=== PATIENT | male | born 1935 | race American Indian/Alaskan Native ===

== ENCOUNTER 2016-07-07 10:49 | Inpatient (IN) | payer MEDICARE, OTHER ==
[2016-07-07 10:50] VITALS: BMI 25.0
--- NOTE | 2016-07-07 12:08 | C.PDOC ---
History Of Present Illness 81-year-old male, presents to the emergency department with complaints of worsening swelling and pain to B/L lower extremities for the past few weeks. Patient notes ulcer to right lower extremity for the past five months. Patient states he was recently admitted for symptoms, which have not improved since discharge. Patient notes he was given Oxycontin by PMD, which he took twice, but discontinued due to "feeling weird" Patient is requesting non-narcotic pain medication. Denies numbness/weakness, dizziness, fevers, chills, nausea/ vomiting or any other associated symptoms. Patient reports that he is ambulatory with cane. No other complaints at this time. PMD Dr Verdin Surgeon Dr Velasquez. Time Seen by Provider: 07/07/16 11:57 Chief Complaint (Nursing): Lower Extremity Problem/Injury Past Medical History Reviewed: Historical Data, Nursing Documentation, Vital Signs Vital Signs: Last Vital Signs Temp 97.7 F 07/08/16 08:00 Pulse 69 07/08/16 08:00 Resp 18 07/08/16 08:00 BP 179/61 H 07/08/16 10:42 Pulse Ox 97 07/08/16 08:00 - Medical History PMH: Anemia, Colonic Polyps, Fractures, Gall Bladder Disease (GALLSTONES ROBIN) , Peripheral Edema Surgical History: Cholecystectomy, Endoscopy Denies: Pacemaker - [facility] Procedures CORONAR ARTERIOGR-2 CATH (06/26/14) CT SCAN OF ABD AORTA USING OTH CONTRAST (01/26/16) CT SCAN OF BI LOW EXTREM ART USING OTH CONTRAST (01/26/16) ETHMOIDECTOMY (01/27/14) INTRANASAL ANTROTOMY (01/27/14) LEFT HEART CARDIAC CATH (06/26/14) LT HEART ANGIOCARDIOGRAM (06/26/14) SPHENOIDOTOMY (01/27/14) SUBMUC NASAL SEPT RESECT (01/27/14) TURBINECTOMY NEC (01/27/14) Family History: States: Unknown Family Hx - Social History Hx Alcohol Use: No Hx Substance Use: No - Immunization History Hx Tetanus Toxoid Vaccination: No Hx Influenza Vaccination: No Hx Pneumococcal Vaccination: No Review Of Systems Except As Marked, All Systems Reviewed And Found Negative. Constitutional: Negative for: Fever, Chills Gastrointestinal: Negative for: Nausea, Vomiting, Abdominal Pain Musculoskeletal: Positive for: Leg Pain, Foot Pain Skin: Positive for: Other (ulcer over right ankle). Negative for: Rash Neurological: Negative for: Weakness, Numbness, Headache, Dizziness Physical Exam - Physical Exam Appears: Non-toxic, No Acute Distress Skin: Warm, Dry, No Rash Head: Atraumatic, Normacephalic Eye(s): bilateral: Normal Inspection, PERRL, EOMI Nose: Normal Oral Mucosa: Moist Lips: Normal Appearing Neck: Normal ROM Cardiovascular: Rhythm Regular Respiratory: Normal Breath Sounds, No Accessory Muscle Use Extremity: Other (RIGHT LOWER EXT: 3CM ULCER OVER THE MEDIAL MALLEOLUS. 2+ EDEMA B/L LOWER EXT. UNABLE TO PALPATE DP PULSE.) Neurological/Psych: Oriented x3, Normal Speech ED Course And Treatment - Laboratory Results Result Diagrams: 07/07/16 12:54 07/07/16 12:54 O2 Sat by Pulse Oximetry: 98 Medical Decision Making Medical Decision Making: Dr Ron gaona the pt in the ED- will plan on likely intervention during admission disc w Dr Verdin who will admit Disposition - Disposition Disposition: HOSPITALIZED Disposition Time: 13:43 Condition: STABLE - Clinical Impression Clinical Impression: Ischemic ulcer of ankle - Scribe Statement The provider has reviewed the documentation as recorded by the Meli Meadows All medical record entries made by the Meli were at my direction and personally dictated by me. I have reviewed the chart and agree that the record accurately reflects my personal performance of the history, physical exam, medical decision making, and the department course for this patient. I have also personally directed, reviewed, and agree with the discharge instructions and disposition.
[2016-07-07 13:06] LABS: BASO # 0.1 K/uL (0.0-0.2); BASO % 0.7 % (0.0-2.0); EOS # 0.3 K/uL (0.0-0.7); EOS % 3.8 % (0.0-4.0); HEMATOCRIT 34.7 % (35.0-51.0); LYMPH # 1.4 K/uL (1.0-4.3); LYMPH % 16.3 % (20.0-40.0); MEAN CORPUSCULAR HEMOGLOBIN 21.1 pg (27.0-31.0); MEAN CORPUSCULAR HGB CONC 30.5 g/dL (33.0-37.0); MEAN PLATELET VOLUME 9.4 fL (7.2-11.7); MONO # 0.9 K/uL (0.0-0.8); MONO % 9.8 % (0.0-10.0); RED CELL DISTRIBUTION WIDTH 22.7 % (11.5-14.5); WHITE BLOOD COUNT 8.7 K/uL (4.8-10.8)
[2016-07-07 13:08] LABS: CHLORIDE 101 mmol/L (98-107); MEAN CELL VOLUME 69.4 fL (80.0-94.0); POTASSIUM 4.3 mmol/L (3.6-5.2); SODIUM 138 mmol/L (132-148)
[2016-07-07 13:10] LABS: GFR AFRICAN-AMERICAN > 60
[2016-07-07 13:11] LABS: ALKALINE PHOSPHATASE 80 U/L (38-126); ALT/SGPT 30 U/L (21-72); AST/SGOT 25 U/L (17-59); BILIRUBIN,TOTAL 0.7 mg/dL (0.2-1.3); BLOOD UREA NITROGEN 18 mg/dL (9-20); CARBON DIOXIDE 25 mmol/L (22-30); GLUCOSE,RANDOM 86 mg/dL (75-110); TOTAL PROTEIN 8.1 g/dL (6.3-8.3)
[2016-07-07 13:12] LABS: CALCIUM 9.3 mg/dl (8.6-10.4)
--- NOTE | 2016-07-07 13:28 | RAD ---
HISTORY: leg swelling COMPARISON: No prior. FINDINGS: LUNGS: No focal airspace opacity. PLEURA: No significant pleural effusion identified, no pneumothorax apparent. CARDIOVASCULAR: Normal. OSSEOUS STRUCTURES: No significant abnormalities. VISUALIZED UPPER ABDOMEN: Normal. OTHER FINDINGS: Midline sternotomy wires noted. IMPRESSION: No focal airspace opacity.
[2016-07-07] MEDS ORDERED: Piperacillin/Tazobact 3.375 GM in Sodium Chloride 100 ML IVPB STA (13:46)
[2016-07-07] MEDS ORDERED: Piperacillin/Tazobact 3.375 gm 100 ML IVPB ONE (16:09)
[2016-07-07] MEDS: Piperacillin/Tazobact 3.375 GM in Sodium Chloride 100 ML IVPB SCH (19:41)
[2016-07-08] MEDS: Piperacillin/Tazobact 3.375 GM in Sodium Chloride 100 ML IVPB SCH ×4 (00:52→17:46)
--- NOTE | 2016-07-08 09:03 | CP.PCM.CON ---
History of Present Illness - History of Present Illness History of Present Illness: known chronic pvd ,Previous imaging done sfa disease plan is angio sunday dx ulcer with cellulitis Past Patient History - Past Medical History & Family History Past Medical History?: Yes - Past Social History Smoking Status: Former Smoker - CARDIAC Hx Cardiac Disorders: Yes Hx Peripheral Edema: Yes - PULMONARY Hx Respiratory Disorders: No - NEUROLOGICAL Hx Neurological Disorder: No - HEENT Hx HEENT Problems: No - RENAL Hx Chronic Kidney Disease: No - ENDOCRINE/METABOLIC Hx Endocrine Disorders: No - HEMATOLOGICAL/ONCOLOGICAL Hx Blood Disorders: Yes Hx Anemia: Yes - INTEGUMENTARY Hx Dermatological Problems: Yes (Right lower leg ulcer) - MUSCULOSKELETAL/RHEUMATOLOGICAL Hx Musculoskeletal Disorders: Yes Hx Falls: No Hx Fractures: Yes - GASTROINTESTINAL Hx Gastrointestinal Disorders: Yes Hx Gall Bladder Disease: Yes (GALLSTONES ROBIN) - GENITOURINARY/GYNECOLOGICAL Hx Genitourinary Disorders: No - PSYCHIATRIC Hx Psychophysiologic Disorder: No Hx Substance Use: No - SURGICAL HISTORY Hx Surgeries: Yes Hx Cholecystectomy: Yes - ANESTHESIA Hx Anesthesia: Yes Hx Anesthesia Reactions: No Hx Malignant Hyperthermia: No Meds Allergies/Adverse Reactions: Allergies Allergy/AdvReac Type Severity Reaction Status Date / Time No Known Allergies Allergy Verified 07/07/16 10:57 - Medications Medications: Current Medications Aspirin (Aspirin Chewable) 81 mg PO DAILY [facility] Clopidogrel Bisulfate (Plavix) 75 mg PO DAILY [facility] Docusate Sodium (Colace) 100 mg PO BID [facility] Enoxaparin Sodium (Lovenox) 40 mg SC DAILY [facility] Home Med (Esomeprazole Magnesium [Nexium]) 40 mg PO DAILY [facility] Piperacillin Sod/Tazobactam (Sod 3.375 gm/ Sodium Chloride) 100 mls @ 200 mls/ hr IVPB Q6H [facility] Last Admin: 07/08/16 05:53 Dose: 200 mls/hr Metoprolol Tartrate (Lopressor) 25 mg PO BID [facility] Pantoprazole Sodium (Protonix Ec Tab) 40 mg PO DAILY [facility] Results - Vital Signs Recent Vital Signs: Last Vital Signs Temp 97.7 F 07/08/16 08:00 Pulse 69 07/08/16 08:00 Resp 18 07/08/16 08:00 BP 179/61 H 07/08/16 08:00 Pulse Ox 97 07/08/16 08:00 - Labs Result Diagrams: 07/07/16 12:54 07/07/16 12:54
[2016-07-08] MEDS ORDERED: Home Med 1 UNIT (Esomeprazole Magnesium [Nexium] 40 MG) PO SCH (10:00)
[2016-07-08] MEDS ORDERED: Oxycodone/Acetaminophen 5/325 mg Tab PO PRN (10:34)
[2016-07-08] MEDS: Pantoprazole 40 mg EC Tab PO SCH (10:42)
[2016-07-08] MEDS: Enoxaparin 40 mg Syringe SC SCH (10:42)
[2016-07-08 16:44] VITALS: RESP 20
[2016-07-09] MEDS: Piperacillin/Tazobact 3.375 GM in Sodium Chloride 100 ML IVPB SCH ×4 (01:07→17:51)
--- NOTE | 2016-07-09 06:43 | CARD ---
APPROVED REPORT EKG Measurement Heart [id number] <Conclusion> Normal sinus rhythm Possible Left atrial enlargement Left ventricular hypertrophy Cannot rule out Inferior infarct, age undetermined T wave abnormality, consider lateral ischemia Abnormal ECG
[2016-07-09] MEDS: Pantoprazole 40 mg EC Tab PO SCH (09:26)
[2016-07-09] MEDS: Enoxaparin 40 mg Syringe SC SCH (09:26)
[2016-07-09] MEDS ORDERED: Pantoprazole 40 mg EC Tab PO SCH (10:00)
--- NOTE | 2016-07-09 15:35 | CP.PCM.CON ---
History of Present Illness - History of Present Illness History of Present Illness: 81-year-old male, presents to the emergency department with complaints of worsening swelling and pain to B/L lower extremities for the past few weeks. Patient notes ulcer to right lower extremity for the past five months. Patient states he was recently admitted for symptoms, which have not improved since discharge. for possible revasc in am iv antibiotics for ulcer/ cellulitis RLE - Medical History PMH: Anemia, Colonic Polyps, Fractures, Gall Bladder Disease (GALLSTONES ROBIN) , Peripheral Edema Surgical History: Cholecystectomy, Endoscopy Denies: Pacemaker Review of Systems - Constitutional Constitutional: As Per HPI - EENT Eyes: absent: As Per HPI, Blind Spots, Blurred Vision, Change in Vision, Decreased Night Vision, Diplopia, Discharge, Dry Eye, Exophthalmos, Floaters, Irritation, Itchy Eyes, Loss of Peripheral Vision, Pain, Photophobia, Requires Corrective Lenses, Sees Flashes, Spots in Vision, Tunnel Vision, Other Visual Disturbances, Loss of Vision, Other Ears: absent: As Per HPI, Decreased Hearing, Ear Discharge, Ear Pain, Tinnitus, Abnormal Hearing, Disequilibrium, Dizziness, Other Nose/Mouth/Throat: absent: As Per HPI, Epistaxis, Nasal Congestion, Nasal Discharge, Nasal Obstruction, Nasal Trauma, Nose Pain, Post Nasal Drip, Sinus Pain, Sinus Pressure, Bleeding Gums, Change in Voice, Dental Pain, Dry Mouth, Dysphagia, Halitosis, Hoarsness, Lip Swelling, Mouth Lesions, Mouth Pain, Odynophagia, Sore Throat, Throat Swelling, Tongue Swelling, Facial Pain, Neck Pain, Neck Mass, Other - Cardiovascular Cardiovascular: absent: As Per HPI, Acrocyanosis, Chest Pain, Chest Pain at Rest , Chest Pain with Activity, Claudication, Diaphoresis, Dyspnea, Dyspnea on Exertion, Edema, Irregular Heart Rhythm, Pain Radiating to Arm/Neck/Jaw, Leg Edema, Leg Ulcers, Lightheadedness, Orthopnea, Palpitations, Paroxysmal Nocturnal Dyspnea, Pedal Edema, Radiating Pain, Rapid Heart Rate, Slow Heart Rate, Syncope, Other - Respiratory Respiratory: absent: As Per HPI, Cough, Dyspnea, Hemoptysis, Dyspnea on Exertion , Wheezing, Snoring, Stridor, Pain on Inspiration, Chest Congestion, Excessive Mucous Production, Change in Mucous Color, Pain with Coughing, Other - Gastrointestinal Gastrointestinal: absent: As Per HPI, Abdominal Pain, Belching, Bloating, Change in Bowel Habits, Change in Stool Character, Coffee Ground Emesis, Constipation, Cramping, Diarrhea, Dyspepsia, Dysphagia, Early Satiety, Excessive Flatus, Fecal Incontinence, Heartburn, Hematemesis, Hematochezia, Loose Stools, Melena, Nausea, Odynophagia, Temesmus, Vomiting, Other - Genitourinary Genitourinary: absent: As Per HPI, Change in Urinary Stream, Difficulty Urinating, Dysuria, Flank Pain, Hematuria, Pyuria, Nocturia, Urinary Incontinence, Urinary Frequency, Urinary Hesitance, Urinary Urgency, Voiding Freq/Small Amts, Freq UTI, Hx Renal/Bladder Calculi, Hx /Renal Surgery, Bladder Distension, Other - Musculoskeletal Musculoskeletal: As Per HPI - Integumentary Integumentary: As Per HPI, Skin Pain, Wounds - Neurological Neurological: absent: As Per HPI, Abnormal Gait, Abnormal Hearing, Abnormal Movements, Abnormal Speech, Behavioral Changes, Burning Sensations, Confusion, Convulsions, Disequilibrium, Dizziness, Numbness, Focal Weakness, Frequent Falls , Headaches, Lack of Coordination, Loss of Vision, Memory Loss, Paresthesias, Radicular Pain, Restless Legs, Sensory Deficit, Syncope, Tingling, Tremor, Vertigo, Weakness, Other Visual Disturbances, Other - Psychiatric Psychiatric: absent: As Per HPI, Abnormal Sleep Pattern, Anhedonia, Anxiety, Auditory Hallucinations, Behavioral Changes, Change in Appetite, Change in Libido, Confusion, Depression, Difficulty Concentrating, Hallucinations, Homicidal Ideation, Hopelessness, Irritability, Memory Loss, Mood Swings, Panic Attacks, Paranoia, Suicidal Ideation, Visual Hallucinations, Tactile Hallucinations, Other - Endocrine Endocrine: absent: As Per HPI, Change in Body Appearance, Change in Libido, Cold Intolorance, Deepening of Voice, Excessive Sweating, Fatigue, Flushing, Heat Intolorance, Increase in Ring/Shoe/Hat Size, Palpitations, Polydipsia, Polyphagia, Polyuria, Other - Hematologic/Lymphatic Hematologic: absent: As Per HPI, Easy Bleeding, Easy Bruising, Lymphadenopathy, Other Past Patient History - Past Medical History & Family History Past Medical History?: Yes - Past Social History Smoking Status: Former Smoker - CARDIAC Hx Pacemaker: No Hx Peripheral Edema: Yes - PULMONARY Hx Respiratory Disorders: No - NEUROLOGICAL Hx Neurological Disorder: No - HEENT Hx HEENT Problems: No - RENAL Hx Chronic Kidney Disease: No - ENDOCRINE/METABOLIC Hx Endocrine Disorders: No - HEMATOLOGICAL/ONCOLOGICAL Hx Anemia: Yes - INTEGUMENTARY Hx Dermatological Problems: Yes (Right lower leg ulcer) - MUSCULOSKELETAL/RHEUMATOLOGICAL Hx Fractures: Yes - GASTROINTESTINAL Hx Gall Bladder Disease: Yes (GALLSTONES ROBIN) - GENITOURINARY/GYNECOLOGICAL Hx Genitourinary Disorders: No - PSYCHIATRIC Hx Substance Use: No - SURGICAL HISTORY Hx Cholecystectomy: Yes - ANESTHESIA Hx Anesthesia: Yes Hx Anesthesia Reactions: No Hx Malignant Hyperthermia: No Meds Allergies/Adverse Reactions: Allergies Allergy/AdvReac Type Severity Reaction Status Date / Time No Known Allergies Allergy Verified 07/07/16 10:57 - Medications Medications: Current Medications Acetaminophen (Tylenol 325mg Tab) 975 mg PO Q6 PRN PRN Reason: Pain, Mild (1-3) Last Admin: 07/09/16 01:25 Dose: 975 mg Aspirin (Aspirin Chewable) 81 mg PO DAILY [facility]PL[facility] Last Admin: 07/09/16 09:26 Dose: 81 mg Clopidogrel Bisulfate (Plavix) 75 mg PO DAILY [facility] Last Admin: 07/09/16 09:26 Dose: 75 mg Docusate Sodium (Colace) 100 mg PO BID [facility] Last Admin: 07/09/16 09:26 Dose: 100 mg Enoxaparin Sodium (Lovenox) 40 mg SC DAILY [facility]PL[facility] Last Admin: 07/09/16 09:26 Dose: 40 mg Piperacillin Sod/Tazobactam (Sod 3.375 gm/ Sodium Chloride) 100 mls @ 200 mls/ hr IVPB Q6H [facility]PLACED [facility] Last Admin: 07/09/16 12:38 Dose: 200 mls/hr Influenza Virus Vaccine (Afluria) 45 mcg IM .ONCE ONE Stop: 07/10/16 10:01 Metoprolol Tartrate (Lopressor) 25 mg PO BID [facility] Last Admin: 07/09/16 09:26 Dose: 25 mg Oxycodone/Acetaminophen (Percocet 5/325 Mg Tab) 1 tab PO Q4H PRN PRN Reason: Pain, Mild (1-3) Stop: 07/11/16 10:35 Pantoprazole Sodium (Protonix Ec Tab) 40 mg PO DAILY [facility] Last Admin: 07/09/16 09:26 Dose: 40 mg Physical Exam - Constitutional Appears: Non-toxic, No Acute Distress, Younger Than Stated Age, Chronically Ill - Head Exam Head Exam: NORMOCEPHALIC - Eye Exam Eye Exam: PERRL. absent: Scleral icterus - ENT Exam ENT Exam: Mucous Membranes Dry, Normal External Ear Exam, Normal Oropharynx - Neck Exam Neck exam: Negative for: Lymphadenopathy, Thyromegaly - Respiratory Exam Respiratory Exam: Decreased Breath Sounds, Clear to Auscultation Bilateral - Cardiovascular Exam Cardiovascular Exam: REGULAR RHYTHM, +S1, +S2 - GI/Abdominal Exam GI & Abdominal Exam: Diminished Bowel Sounds, Soft. absent: Pulsatile Mass, Rebound, Tenderness - Rectal Exam Rectal Exam: Deferred - Exam Exam: NORMAL INSPECTION - Extremities Exam Extremities exam: Positive for: pedal edema, tenderness. Negative for: calf tenderness, normal inspection, pedal pulses present Additional comments: ulcer rle - Back Exam Back exam: absent: CVA tenderness (L), CVA tenderness (R), paraspinal tenderness - Neurological Exam Neurological exam: Alert, CN II-XII Intact, Oriented x3, Reflexes Normal - Psychiatric Exam Psychiatric exam: Normal Mood - Skin Skin Exam: Dry Results - Vital Signs Recent Vital Signs: Last Vital Signs Temp 97.5 F L 07/09/16 08:00 Pulse 71 07/09/16 12:16 Resp 20 07/09/16 08:00 BP 142/72 07/09/16 09:26 Pulse Ox 98 07/09/16 08:00 - Labs Result Diagrams: 07/07/16 12:54 07/07/16 12:54 Assessment & Plan (1) Ischemic ulcer of ankle Status: Acute (2) CAD (coronary artery disease) Status: Acute (3) Cellulitis Status: Acute (4) HTN (hypertension) Status: Acute (5) Heart valve replaced Status: Acute (6) History of DVT (deep vein thrombosis) Status: Acute (7) Prophylactic measure Status: Acute (8) Swollen leg Status: Acute - Assessment and Plan (Free Text) Assessment: cont iv rx as ordered
[2016-07-10] MEDS: Piperacillin/Tazobact 3.375 GM in Sodium Chloride 100 ML IVPB SCH ×4 (00:40→18:12)
[2016-07-10 07:36] LABS: CHLORIDE 101 mmol/L (98-107)
[2016-07-10 07:37] LABS: EOS # 0.5 K/uL (0.0-0.7); LYMPH # 1.5 K/uL (1.0-4.3); MONO # 0.7 K/uL (0.0-0.8); NRBC % 0.1 % (0.0-2.0); POTASSIUM 4.4 mmol/L (3.6-5.2); SODIUM 138 mmol/L (132-148)
[2016-07-10 07:39] LABS: AST/SGOT 21 U/L (17-59); BILIRUBIN,TOTAL 0.3 mg/dL (0.2-1.3); BLOOD UREA NITROGEN 14 mg/dL (9-20); CARBON DIOXIDE 27 mmol/L (22-30); GFR AFRICAN-AMERICAN > 60; TOTAL PROTEIN 6.8 g/dL (6.3-8.3)
[2016-07-10 07:40] LABS: ALKALINE PHOSPHATASE 61 U/L (38-126); ALT/SGPT 14 U/L (21-72); CALCIUM 8.9 mg/dl (8.6-10.4); GLUCOSE,RANDOM 81 mg/dL (75-110)
[2016-07-10 07:42] LABS: INR 1.2
[2016-07-10 07:51] LABS: BASO # 0.1 K/uL (0.0-0.2); BASO % 0.8 % (0.0-2.0); EOS % 6.7 % (0.0-4.0); HEMATOCRIT 33.7 % (35.0-51.0); MEAN CELL VOLUME 69.5 fL (80.0-94.0); MEAN CORPUSCULAR HEMOGLOBIN 21.6 pg (27.0-31.0); MEAN PLATELET VOLUME 9.4 fL (7.2-11.7); MONO % 9.2 % (0.0-10.0); RED CELL DISTRIBUTION WIDTH 22.6 % (11.5-14.5); WHITE BLOOD COUNT 7.1 K/uL (4.8-10.8)
--- NOTE | 2016-07-10 08:40 | CP.PCM.PN ---
Subjective - Date & Time of Evaluation Date of Evaluation: 07/10/16 Time of Evaluation: 07:30 - Subjective Subjective: PGY2 Medicine Note - Dr. Verdin's Service: Patient seen and evaluated at bedside this AM. Patient reports left first toe pain and b/l foot pain. Patient says he has circulation problems in both legs. Patient denies fever, chills, chest pain, SOB, abdominal pain, nausea, vomiting, diarrhea, constipation, dysuria. Objective - Vital Signs/Intake and Output Vital Signs (last 24 hours): Temp Pulse Resp BP Pulse Ox 98 F 76 20 142/76 97 07/10/16 00:18 07/10/16 00:18 07/10/16 00:18 07/10/16 00:18 07/10/16 00:18 Intake and Output: 07/10/16 07/10/16 06:59 18:59 Intake Total 200 Output Total 700 Balance -500 - Medications Medications: Current Medications Acetaminophen (Tylenol 325mg Tab) 975 mg PO Q6 PRN PRN Reason: Pain, Mild (1-3) Last Admin: 07/09/16 01:25 Dose: 975 mg Aspirin (Aspirin Chewable) 81 mg PO DAILY [facility] Last Admin: 07/09/16 09:26 Dose: 81 mg Clopidogrel Bisulfate (Plavix) 75 mg PO DAILY [facility] Last Admin: 07/09/16 09:26 Dose: 75 mg Docusate Sodium (Colace) 100 mg PO BID [facility] Last Admin: 07/09/16 17:40 Dose: 100 mg Enoxaparin Sodium (Lovenox) 40 mg SC DAILY [facility] Last Admin: 07/09/16 09:26 Dose: 40 mg Piperacillin Sod/Tazobactam (Sod 3.375 gm/ Sodium Chloride) 100 mls @ 200 mls/ hr IVPB Q6H [facility] Last Admin: 07/10/16 06:13 Dose: 200 mls/hr Influenza Virus Vaccine (Afluria) 45 mcg IM .ONCE ONE Stop: 07/10/16 10:01 Metoprolol Tartrate (Lopressor) 25 mg PO BID [facility] Last Admin: 07/09/16 21:39 Dose: 25 mg Oxycodone/Acetaminophen (Percocet 5/325 Mg Tab) 1 tab PO Q4H PRN PRN Reason: Pain, Mild (1-3) Stop: 07/11/16 10:35 Pantoprazole Sodium (Protonix Ec Tab) 40 mg PO DAILY [facility] Last Admin: 07/09/16 09:26 Dose: 40 mg - Labs Labs: 07/10/16 07:14 07/10/16 07:14 PT 13.6 SECONDS (9.7-12.2) H 07/10/16 07:14 INR 1.2 07/10/16 07:14 APTT 32 SECONDS (21-34) 07/10/16 07:14 - Constitutional Appears: Non-toxic, No Acute Distress - Head Exam Head Exam: NORMAL INSPECTION - Eye Exam Eye Exam: EOMI - ENT Exam ENT Exam: Mucous Membranes Moist - Respiratory Exam Respiratory Exam: Clear to Ausculation Bilateral, NORMAL BREATHING PATTERN. absent: Rales, Rhonchi, Wheezes - Cardiovascular Exam Cardiovascular Exam: REGULAR RHYTHM, +S1, +S2, Murmur (4/6 systolic murmur). absent: Gallop, Rubs - GI/Abdominal Exam GI & Abdominal Exam: Soft, Normal Bowel Sounds. absent: Firm, Guarding, Tenderness - Extremities Exam Extremities Exam: absent: Normal Capillary Refill, Pedal Edema Additional comments: swollen left big toe, wrapped left ankle, yellowing of skin on left foot - Neurological Exam Neurological Exam: Alert, Awake, Oriented x3 - Psychiatric Exam Psychiatric exam: Normal Affect, Normal Mood - Skin Skin Exam: Dry Assessment and Plan - Assessment and Plan (Free Text) Assessment: (1) Cellulitis Assessment & Plan: Improving Continue Zosyn 3.375gm IVPB Q6H ID consult - Dr. Allison - help appreciated Afebrile, no leukocytosis Discharge planning to [facility] as per Dr. Verdin once bed becomes available. (2) PVD Assessment & Plan: Patient with history of DVTs Vascular Surgery - Dr. Velasquez - help appreciated Patient NPO for angiogram today F/U arterial doppler results Status: Acute (3) Heart valve replaced Assessment & Plan: INR 1.2 this AM Continue Plavix and ASA Patient not on coumadin at home. Status: Acute (4) CAD (coronary artery disease) Assessment & Plan: Patient on ASA and Plavix at home, continue meds. Status: Acute (5) HTN (hypertension) Assessment & Plan: BP controlled Continue Lopressor 25 mg PO BID Status: Acute (6) Prophylactic measure Assessment & Plan: Pepcid 20 mg PO BID All management as per Dr. Verdin.
[2016-07-10 08:42] LABS: URINE BILIRUBIN NEGATIVE (NEGATIVE); URINE BLOOD NEGATIVE (NEGATIVE); URINE COLOR Yellow (YELLOW); URINE GLUCOSE (UA) NORMAL (Normal); URINE KETONE NEGATIVE (NEGATIVE); URINE LEUKOCYTE ESTERASE NEG Leu/uL (Negative); URINE PROTEIN NEGATIVE (NEGATIVE); URINE UROBILINOGEN NORMAL mg/dL (0.2-1.0); WBC URINE < 1 /hpf (0-5)
--- NOTE | 2016-07-10 09:11 | HP ---
The patient is an 81-year-old male admitted to the hospital with chief complaint of weakness, fatigue , tiredness, pain in the foot. The patient came to the ER, has ischemic ulcer. The patient was advi sed admission to the hospital. The patient has history of peripheral vascular disease, hypertension. PHYSICAL EXAMINATION: GENERAL: The patient is awake, alert, oriented. VITAL SIGNS: Temperature 98, pulse 90. HEENT: Within normal limits. NECK: Supple. CHEST: Symmetrical. HEART: Regular. ABDOMEN: Soft. EXTREMITIES: ulcer present on the foot. The patient suffers from ischemic foot ulcer, peripheral vascular disease. At this point, patient wi ll get IV antibiotic, vascular surgery consult, ID consult. Brandy Bull MD cc: [id number] TT: 07/09/2016 07:43:06 en
[2016-07-10] MEDS ORDERED: Influenza Virus Vaccine 45 mcg/0.5 ml Syr IM ONE (10:00)
[2016-07-10] MEDS: Enoxaparin 40 mg Syringe SC SCH (10:28)
[2016-07-10] MEDS: Pantoprazole 40 mg EC Tab PO SCH (10:37)
--- NOTE | 2016-07-10 16:15 | VASCLAB ---
PROCEDURE: HISTORY: pain, ulcers, poor pulses COMPARISON: None available. TECHNIQUE: Grayscale and duplex Doppler evaluation of the bilateral common femoral, femoral, profunda femoral, popliteal, posterior tibial, anterior tibial and dorsalis pedis arteries was performed. Report prepared by Dennis Sarmiento, BS, RVT FINDINGS: RIGHT LOWER EXTREMITY: * Common Femoral Artery: Peak Systolic Velocity - 116: Doppler Waveform: Biphasic: Plaque description - Homogeneous * Profunda Femoral Artery: Peak Systolic Velocity - 167: Doppler Waveform: Biphasic.: Plaque description - Heterogeneous * Femoral Artery o Proximal Segment: Peak Systolic Velocity - 84: Doppler Waveform: Monophasic: Plaque description - Heterogeneous o Middle Segment: Peak Systolic Velocity - 550: Doppler Waveform: Monophasic: Plaque description - Heterogeneous o Distal Segment: Peak Systolic Velocity - 231: Doppler Waveform: Monophasic: Plaque description - Heterogeneous * Popliteal Artery o Proximal Segment: Peak Systolic Velocity - 148: Doppler Waveform: Monophasic: Plaque description - Heterogeneous o Middle Segment: Peak Systolic Velocity - 68: Doppler Waveform: Monophasic: Plaque description - Heterogeneous o Distal Segment: Peak Systolic Velocity - 89: Doppler Waveform: Monophasic: Plaque description - Heterogeneous * Posterior Tibial Artery: Peak Systolic Velocity - 57: Doppler Waveform: Monophasic: Plaque description - Heterogeneous * Anterior Tibial Artery: Peak Systolic Velocity - 0: Doppler Waveform: Absent: Plaque description - Heterogeneous * Dorsalis Pedis Artery: Peak Systolic Velocity - 0: Doppler Waveform: Absent: Plaque description - Heterogeneous LEFT LOWER EXTREMITY: * Common Femoral Artery: Peak Systolic Velocity - 162: Doppler Waveform: Biphasic: Plaque description - Heterogeneous * Profunda Femoral Artery: Peak Systolic Velocity - 180: Doppler Waveform: Biphasic: Plaque description - Heterogeneous * Femoral Artery o Proximal Segment: Peak Systolic Velocity - 103: Doppler Waveform: Biphasic: Plaque description - Heterogeneous o Middle Segment: Peak Systolic Velocity - 111: Doppler Waveform: Monophasic: Plaque description - Heterogeneous o Distal Segment: Peak Systolic Velocity - 714: Doppler Waveform: Monophasic: Plaque description - Heterogeneous * Popliteal Artery o Proximal Segment: Peak Systolic Velocity - 49: Doppler Waveform: Monophasic: Plaque description - Heterogeneous o Middle Segment: Peak Systolic Velocity - 41: Doppler Waveform: Monophasic: Plaque description - Heterogeneous o Distal Segment: Peak Systolic Velocity - 61: Doppler Waveform: Monophasic: Plaque description - Heterogeneous * Posterior Tibial Artery: Peak Systolic Velocity - 49: Doppler Waveform: Monophasic: Plaque description - Heterogeneous * Anterior Tibial Artery: Peak Systolic Velocity - 0: Doppler Waveform: Absent: Plaque description - Heterogeneous * Dorsalis Pedis Artery: Peak Systolic Velocity - 0: Doppler Waveform: Absent: Plaque description - Heterogeneous OTHER FINDINGS: Dr. Castaneda notified about the findings. IMPRESSION: RIGHT: Possible occlusion of the right mid to distal anterior tibial and dorsalis pedis arteries. Greater than 75% stenosis of the right mid superficial femoral artery. 50-75% stenosis of the right distal superficial femoral and proximal profunda femoral arteries. LEFT: Possible occlusion of the left mid to distal anterior tibial and dorsalis pedis arteries. Greater than 75% stenosis of the left distal superficial femoral artery. 30-49% stenosis of the left common femoral and profunda femoral arteries.
--- NOTE | 2016-07-10 16:18 | VASCLAB ---
PROCEDURE: Lower Extremity Venous Duplex Exam. HISTORY: swelling PRIORS: None. TECHNIQUE: Bilateral common femoral, femoral, popliteal and posterior tibial, peroneal and great saphenous veins were evaluated. Flow was assessed with color Doppler, compressibility, assessment of phasic flow and augmentation response. Report prepared by VANNESA David, RVT FINDINGS: RIGHT: 1. Common Femoral Vein: 1.1. Compressibility - Fully compressible: Thrombus - None : Flow - Phasic: Augmentation -Normal: Reflux - None. 2. Femoral Vein: 2.1. Compressibility - Fully compressible: Thrombus - None : Flow - Phasic: Augmentation -Normal: Reflux - None. 3. Popliteal Vein: 3.1. Compressibility - Fully compressible: Thrombus - None : Flow - Phasic: Augmentation -Normal: Reflux - Severe. 4. Posterior Tibial Vein: 4.1. Compressibility - Fully compressible: Thrombus - None: Flow - Phasic: Augmentation -Normal: Reflux - None. 5. Peroneal Vein: 5.1. Compressibility - Fully compressible: Thrombus - None: Flow - Phasic: Augmentation -Normal: Reflux - None. 6. Great Saphenous Vein: 6.1. Compressibility - Fully compressible: Thrombus - None: Flow - Phasic: Augmentation - Normal: Reflux - None. LEFT: 1. Common Femoral Vein: 1.1. Compressibility - Fully compressible: Thrombus - None: Flow - Phasic: Augmentation -Normal: Reflux - None. 2. Femoral Vein: 2.1. Compressibility - Fully compressible: Thrombus - None: Flow - Phasic: Augmentation -Normal: Reflux - None. 3. Popliteal Vein: 3.1. Compressibility - Fully compressible: Thrombus - None : Flow - Phasic: Augmentation -Normal: Reflux - Severe. 4. Posterior Tibial Vein: 4.1. Compressibility - Fully compressible: Thrombus - None: Flow - Phasic: Augmentation -Normal: Reflux - None. 5. Peroneal Vein: 5.1. Compressibility - Fully compressible: Thrombus - None: Flow - Phasic: Augmentation -Normal: Reflux - None. 6. Great Saphenous Vein: 6.1. Compressibility - Fully compressible: Thrombus - None: Flow - Phasic: Augmentation - Normal: Reflux - None. 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 Left: Severe valvular incompetence of the left popliteal vein. Non vascularlized mass noted behind left knee. Followup to resolution recommended. IMPRESSION: Right: No evidence of deep or superficial vein thrombosis of the right lower extremity. Left: No evidence of deep or superficial vein thrombosis of the left lower extremity.
[2016-07-10] MEDS ORDERED: POLYETHYLENE GLYCOL 3350 17 GM/Dose PACKET PO ONE (21:40)
--- NOTE | 2016-07-10 23:05 | CP.PCM.CON ---
History of Present Illness - History of Present Illness History of Present Illness: 81 male with Hx of CABG and AVR as per patient, PAD and foot ulcer admitted for ulcer also sx of dyspnea Check ECHO Dr. Velasquez scheduled patient for [employer] for PAD Past Patient History - Past Medical History & Family History Past Medical History?: Yes - Past Social History Smoking Status: Former Smoker - CARDIAC Hx Pacemaker: No Hx Peripheral Edema: Yes - PULMONARY Hx Respiratory Disorders: No - NEUROLOGICAL Hx Neurological Disorder: No - HEENT Hx HEENT Problems: No - RENAL Hx Chronic Kidney Disease: No - ENDOCRINE/METABOLIC Hx Endocrine Disorders: No - HEMATOLOGICAL/ONCOLOGICAL Hx Anemia: Yes - INTEGUMENTARY Hx Dermatological Problems: Yes (Right lower leg ulcer) - MUSCULOSKELETAL/RHEUMATOLOGICAL Hx Fractures: Yes - GASTROINTESTINAL Hx Gall Bladder Disease: Yes (GALLSTONES ROBIN) - GENITOURINARY/GYNECOLOGICAL Hx Genitourinary Disorders: No - PSYCHIATRIC Hx Substance Use: No - SURGICAL HISTORY Hx Cholecystectomy: Yes - ANESTHESIA Hx Anesthesia: Yes Hx Anesthesia Reactions: No Hx Malignant Hyperthermia: No Meds Allergies/Adverse Reactions: Allergies Allergy/AdvReac Type Severity Reaction Status Date / Time No Known Allergies Allergy Verified 07/07/16 10:57 - Medications Medications: Current Medications Acetaminophen (Tylenol 325mg Tab) 975 mg PO Q6 PRN PRN Reason: Pain, Mild (1-3) Last Admin: 07/10/16 10:35 Dose: 975 mg Aspirin (Aspirin Chewable) 81 mg PO DAILY [facility] Last Admin: 07/10/16 10:28 Dose: Not Given Clopidogrel Bisulfate (Plavix) 75 mg PO DAILY [facility] Last Admin: 07/10/16 10:28 Dose: Not Given Docusate Sodium (Colace) 100 mg PO BID [facility] Last Admin: 07/10/16 18:11 Dose: 100 mg Enoxaparin Sodium (Lovenox) 40 mg SC DAILY [facility] Last Admin: 07/10/16 10:28 Dose: Not Given Piperacillin Sod/Tazobactam (Sod 3.375 gm/ Sodium Chloride) 100 mls @ 200 mls/ hr IVPB Q6H [facility] Last Admin: 07/10/16 18:12 Dose: 200 mls/hr Metoprolol Tartrate (Lopressor) 25 mg PO BID [facility] Last Admin: 07/10/16 18:11 Dose: 25 mg Oxycodone/Acetaminophen (Percocet 5/325 Mg Tab) 1 tab PO Q4H PRN PRN Reason: Pain, Mild (1-3) Stop: 07/11/16 10:35 Pantoprazole Sodium (Protonix Ec Tab) 40 mg PO DAILY [facility] Last Admin: 07/10/16 10:37 Dose: Not Given Results - Vital Signs Recent Vital Signs: Last Vital Signs Temp 97.5 F L 07/10/16 16:00 Pulse 70 07/10/16 16:00 Resp 20 07/10/16 16:00 BP 129/66 07/10/16 18:11 Pulse Ox 100 07/10/16 16:00 - Labs Result Diagrams: 07/10/16 07:14 07/10/16 07:14
[2016-07-11] MEDS: Piperacillin/Tazobact 3.375 GM in Sodium Chloride 100 ML IVPB SCH ×4 (00:55→18:11)
[2016-07-11 07:38] LABS: BASO % 0.6 % (0.0-2.0); EOS # 0.5 K/uL (0.0-0.7); EOS % 6.1 % (0.0-4.0); HEMATOCRIT 39.1 % (35.0-51.0); LYMPH # 1.8 K/uL (1.0-4.3); LYMPH % 23.7 % (20.0-40.0); MEAN CELL VOLUME 70.6 fL (80.0-94.0); MEAN CORPUSCULAR HEMOGLOBIN 21.4 pg (27.0-31.0); MEAN CORPUSCULAR HGB CONC 30.4 g/dL (33.0-37.0); MEAN PLATELET VOLUME 9.5 fL (7.2-11.7); MONO # 0.7 K/uL (0.0-0.8); MONO % 8.9 % (0.0-10.0); NRBC % 0.1 % (0.0-2.0); RED CELL DISTRIBUTION WIDTH 22.4 % (11.5-14.5); WHITE BLOOD COUNT 7.4 K/uL (4.8-10.8)
[2016-07-11 07:42] LABS: CHLORIDE 99 mmol/L (98-107)
[2016-07-11 07:43] LABS: SODIUM 140 mmol/L (132-148)
[2016-07-11 07:44] LABS: POTASSIUM 4.7 mmol/L (3.6-5.2)
[2016-07-11 07:46] LABS: ALKALINE PHOSPHATASE 71 U/L (38-126); ALT/SGPT 21 U/L (21-72); AST/SGOT 33 U/L (17-59); BILIRUBIN,TOTAL 0.5 mg/dL (0.2-1.3); BLOOD UREA NITROGEN 17 mg/dL (9-20); CARBON DIOXIDE 26 mmol/L (22-30); GFR AFRICAN-AMERICAN > 60; GLUCOSE,RANDOM 98 mg/dL (75-110); TOTAL PROTEIN 8.2 g/dL (6.3-8.3)
[2016-07-11 07:47] LABS: CALCIUM 9.4 mg/dl (8.6-10.4); URIC ACID 3.4 mg/dL (3.5-8.5)
[2016-07-11 07:48] LABS: ALB/GLOB RATIO 1.1 (1.0-2.1)
--- NOTE | 2016-07-11 07:55 | CP.PCM.PN ---
Subjective - Date & Time of Evaluation Date of Evaluation: 07/11/16 Time of Evaluation: 07:54 - Subjective Subjective: sngio podtponed again due to equioment issues reschedulked for 07/12 Objective - Vital Signs/Intake and Output Vital Signs (last 24 hours): Temp Pulse Resp BP Pulse Ox 98 F 61 20 143/66 98 07/11/16 00:00 07/11/16 00:00 07/11/16 00:00 07/11/16 00:00 07/11/16 00:00 Intake and Output: 07/11/16 07/11/16 06:59 18:59 Intake Total 600 Output Total 400 Balance 200 - Medications Medications: Current Medications Acetaminophen (Tylenol 325mg Tab) 975 mg PO Q6 PRN PRN Reason: Pain, Mild (1-3) Last Admin: 07/10/16 10:35 Dose: 975 mg Aspirin (Aspirin Chewable) 81 mg PO DAILY [facility] Last Admin: 07/10/16 10:28 Dose: Not Given Clopidogrel Bisulfate (Plavix) 75 mg PO DAILY [facility] Last Admin: 07/10/16 10:28 Dose: Not Given Docusate Sodium (Colace) 100 mg PO BID [facility] Last Admin: 07/10/16 18:11 Dose: 100 mg Enoxaparin Sodium (Lovenox) 40 mg SC DAILY [facility] Last Admin: 07/10/16 10:28 Dose: Not Given Piperacillin Sod/Tazobactam (Sod 3.375 gm/ Sodium Chloride) 100 mls @ 200 mls/ hr IVPB Q6H [facility] Last Admin: 07/11/16 06:38 Dose: 200 mls/hr Metoprolol Tartrate (Lopressor) 25 mg PO BID [facility] Last Admin: 07/10/16 18:11 Dose: 25 mg Oxycodone/Acetaminophen (Percocet 5/325 Mg Tab) 1 tab PO Q4H PRN PRN Reason: Pain, Mild (1-3) Stop: 07/11/16 10:35 Pantoprazole Sodium (Protonix Ec Tab) 40 mg PO DAILY [facility] Last Admin: 07/10/16 10:37 Dose: Not Given - Labs Labs: 07/11/16 07:17 07/11/16 07:17 PT 13.6 SECONDS (9.7-12.2) H 07/10/16 07:14 INR 1.2 07/10/16 07:14 APTT 32 SECONDS (21-34) 07/10/16 07:14
[2016-07-11] MEDS: Enoxaparin 40 mg Syringe SC SCH ×2 (10:28→10:34)
[2016-07-11] MEDS: Pantoprazole 40 mg EC Tab PO SCH (10:30)
--- NOTE | 2016-07-11 11:13 | CP.PCM.PN ---
Subjective - Date & Time of Evaluation Date of Evaluation: 07/11/16 Time of Evaluation: 07:40 - Subjective Subjective: PGY2 Medicine Note - Dr. Verdin's Service: Patient seen and evaluated at bedside this AM. Patient reports left first toe pain and b/l foot pain. Patient denies fever, chills, chest pain, SOB, abdominal pain, nausea, vomiting, diarrhea, constipation, dysuria. Objective - Vital Signs/Intake and Output Vital Signs (last 24 hours): Temp Pulse Resp BP Pulse Ox 98.4 F 71 20 155/77 H 100 07/11/16 08:12 07/11/16 08:12 07/11/16 08:12 07/11/16 10:27 07/11/16 08:12 Intake and Output: 07/11/16 07/11/16 06:59 18:59 Intake Total 600 Output Total 400 Balance 200 - Medications Medications: Current Medications Acetaminophen (Tylenol 325mg Tab) 975 mg PO Q6 PRN PRN Reason: Pain, Mild (1-3) Last Admin: 07/11/16 10:26 Dose: 975 mg Aspirin (Aspirin Chewable) 81 mg PO DAILY [facility] Last Admin: 07/11/16 10:32 Dose: Not Given Clopidogrel Bisulfate (Plavix) 75 mg PO DAILY [facility] Last Admin: 07/11/16 10:34 Dose: Not Given Docusate Sodium (Colace) 100 mg PO BID [facility] Last Admin: 07/11/16 10:28 Dose: 100 mg Enoxaparin Sodium (Lovenox) 40 mg SC DAILY [facility] Last Admin: 07/11/16 10:34 Dose: Not Given Piperacillin Sod/Tazobactam (Sod 3.375 gm/ Sodium Chloride) 100 mls @ 200 mls/ hr IVPB Q6H [facility] Last Admin: 07/11/16 06:38 Dose: 200 mls/hr Metoprolol Tartrate (Lopressor) 25 mg PO BID [facility] Last Admin: 07/11/16 10:27 Dose: 25 mg Pantoprazole Sodium (Protonix Ec Tab) 40 mg PO DAILY [facility] Last Admin: 07/11/16 10:30 Dose: 40 mg - Labs Labs: 07/11/16 07:17 07/11/16 07:17 PT 13.6 SECONDS (9.7-12.2) H 07/10/16 07:14 INR 1.2 07/10/16 07:14 APTT 32 SECONDS (21-34) 07/10/16 07:14 - Constitutional Appears: Non-toxic, No Acute Distress - Head Exam Head Exam: NORMAL INSPECTION - Eye Exam Eye Exam: EOMI - ENT Exam ENT Exam: Mucous Membranes Moist - Respiratory Exam Respiratory Exam: Clear to Ausculation Bilateral, NORMAL BREATHING PATTERN. absent: Rales, Rhonchi, Wheezes - Cardiovascular Exam Cardiovascular Exam: REGULAR RHYTHM, +S1, +S2, Murmur. absent: Gallop, Rubs - GI/Abdominal Exam GI & Abdominal Exam: Soft, Normal Bowel Sounds. absent: Firm, Guarding, Tenderness - Extremities Exam Extremities Exam: Tenderness. absent: Pedal Edema - Neurological Exam Neurological Exam: Alert, Oriented x3 - Psychiatric Exam Psychiatric exam: Normal Affect, Normal Mood - Skin Skin Exam: Normal Color, Warm Assessment and Plan - Assessment and Plan (Free Text) Assessment: (1) Cellulitis Assessment & Plan: Improving Continue Zosyn 3.375gm IVPB Q6H ID consult - Dr. Allison - deja appreciated Afebrile, no leukocytosis Discharge planning to [facility] as per Dr. Verdin once bed becomes available. (2) PVD Assessment & Plan: Patient with history of DVTs Vascular Surgery - Dr. Velasquez - deja appreciated Patient NPO for angiogram but the machine is not working pending angiogram Status: Acute (3) Heart valve replaced Assessment & Plan: INR 1.2 Continue Plavix and ASA Patient not on coumadin at home. F/U ECHO Cardio consult - Dr. Haddad - deja appreciated Status: Acute (4) CAD (coronary artery disease) Assessment & Plan: Patient on ASA and Plavix at home, continue meds. Status: Acute (5) HTN (hypertension) Assessment & Plan: BP controlled Continue Lopressor 25 mg PO BID Status: Acute (6) Prophylactic measure Assessment & Plan: Pepcid 20 mg PO BID All management as per Dr. Verdin.
--- NOTE | 2016-07-11 23:40 | CP.PCM.PN ---
Subjective - Date & Time of Evaluation Date of Evaluation: 07/11/16 Time of Evaluation: 07:10 - Subjective Subjective: Patient seen and evaluated Denies chest pain and dyspnea Objective - Vital Signs/Intake and Output Vital Signs (last 24 hours): Temp Pulse Resp BP Pulse Ox 97.9 F 59 L 20 132/76 99 07/11/16 16:00 07/11/16 16:00 07/11/16 16:00 07/11/16 17:20 07/11/16 16:00 Intake and Output: 07/11/16 07/12/16 18:59 06:59 Intake Total 550 Balance 550 - Medications Medications: Current Medications Acetaminophen (Tylenol 325mg Tab) 975 mg PO Q6 PRN PRN Reason: Pain, Mild (1-3) Last Admin: 07/11/16 10:26 Dose: 975 mg Aspirin (Aspirin Chewable) 81 mg PO DAILY [facility] Last Admin: 07/11/16 10:32 Dose: Not Given Clopidogrel Bisulfate (Plavix) 75 mg PO DAILY [facility] Last Admin: 07/11/16 10:34 Dose: Not Given Docusate Sodium (Colace) 100 mg PO BID [facility] Last Admin: 07/11/16 17:20 Dose: 100 mg Enoxaparin Sodium (Lovenox) 40 mg SC DAILY [facility] Last Admin: 07/11/16 10:34 Dose: Not Given Piperacillin Sod/Tazobactam (Sod 3.375 gm/ Sodium Chloride) 100 mls @ 200 mls/ hr IVPB Q6H [facility] Last Admin: 07/11/16 18:11 Dose: 200 mls/hr Metoprolol Tartrate (Lopressor) 25 mg PO BID [facility] Last Admin: 07/11/16 17:20 Dose: 25 mg Pantoprazole Sodium (Protonix Ec Tab) 40 mg PO DAILY [facility] Last Admin: 07/11/16 10:30 Dose: 40 mg - Labs Labs: 07/11/16 07:17 07/11/16 07:17 PT 13.6 SECONDS (9.7-12.2) H 07/10/16 07:14 INR 1.2 07/10/16 07:14 APTT 32 SECONDS (21-34) 07/10/16 07:14
[2016-07-12] MEDS: Piperacillin/Tazobact 3.375 GM in Sodium Chloride 100 ML IVPB SCH ×3 (00:31→12:21)
[2016-07-12 07:37] LABS: MEAN CORPUSCULAR HEMOGLOBIN 21.8 pg (27.0-31.0); MEAN CORPUSCULAR HGB CONC 31.5 g/dL (33.0-37.0); RED CELL DISTRIBUTION WIDTH 22.7 % (11.5-14.5)
[2016-07-12 07:51] LABS: BASO % 0.6 % (0.0-2.0); EOS # 0.5 K/uL (0.0-0.7); EOS % 6.8 % (0.0-4.0); HEMATOCRIT 32.6 % (35.0-51.0); LYMPH # 1.5 K/uL (1.0-4.3); MEAN CELL VOLUME 69.1 fL (80.0-94.0); MEAN PLATELET VOLUME 9.6 fL (7.2-11.7); MONO # 0.9 K/uL (0.0-0.8); MONO % 13.4 % (0.0-10.0); NRBC % 0.1 % (0.0-2.0); WHITE BLOOD COUNT 6.7 K/uL (4.8-10.8)
[2016-07-12 08:00] LABS: CHLORIDE 101 mmol/L (98-107)
[2016-07-12 08:01] LABS: POTASSIUM 4.2 mmol/L (3.6-5.2); SODIUM 139 mmol/L (132-148)
[2016-07-12 08:03] LABS: ALKALINE PHOSPHATASE 63 U/L (38-126); ALT/SGPT 21 U/L (21-72); AST/SGOT 23 U/L (17-59); BILIRUBIN,TOTAL 0.7 mg/dL (0.2-1.3); BLOOD UREA NITROGEN 16 mg/dL (9-20); CARBON DIOXIDE 26 mmol/L (22-30); GFR AFRICAN-AMERICAN > 60; GLUCOSE,RANDOM 88 mg/dL (75-110); TOTAL PROTEIN 7.1 g/dL (6.3-8.3)
[2016-07-12 08:04] LABS: CALCIUM 9.1 mg/dl (8.6-10.4)
[2016-07-12] MEDS ORDERED: Midazolam 2 MG/2 ML VIAL ONE (08:05)
[2016-07-12] MEDS ORDERED: Propofol 10 mg/ml Inj (20 ML) ONE ×2 (08:05→09:09)
[2016-07-12] MEDS ORDERED: Lidocaine 2% Inj (20ml) ONE (08:09)
[2016-07-12] MEDS ORDERED: Iodixanol 320 MG/ML 200 ML BOTTLE IV ONE (08:14)
[2016-07-12] MEDS ORDERED: Dexmedetomidine Hydrochloride 100 mcg/ml (2ML) ONE (08:15)
[2016-07-12] MEDS ORDERED: Iodixanol 320 MG/ML 100 ML BOTTLE IV ONE (08:16)
--- NOTE | 2016-07-12 09:34 | PCM.SURG1 ---
Surgeon's Initial Post Op Note - Surgeon's Notes Surgeon: [email or web address] [employer]: 0 Type of Anesthesia: IV Sedation Anesthesia Administered By: humaira tejeda Pre-Operative Diagnosis: ischemic ulcer right foot Operative Findings: multilevel right sfa stemosis/occlusion. at occleded, PT/ peroneal open. severe disease on left sfa. perclose left groin Post-Operative Diagnosis: same Operation Performed: aortofemoral angiogram via left groin with selective catherization of right femoral artery. pathway atherectomy and stenting of right sfa Specimen/Specimens Removed: 0 Estimated Blood Loss: EBL {In ML}: 50 Blood Products Given: N/A Drains Used: No Drains Post-Op Condition: Good Date of Surgery/Procedure: 07/12/16 Time of Surgery/Procedure: 09:35
--- NOTE | 2016-07-12 10:09 | CP.PCM.PN ---
Subjective - Date & Time of Evaluation Date of Evaluation: 07/12/16 Time of Evaluation: 10:00 - Subjective Subjective: PGY2 Medicine Note - Dr. Verdin's Service: Patient at angiogram when tried to see patient multiple times this AM. Patient had right pathway artherectomy and right stent of superficial femoral artery. Objective - Vital Signs/Intake and Output Vital Signs (last 24 hours): Temp Pulse Resp BP Pulse Ox 97.5 F L 80 20 158/80 H 97 07/12/16 00:36 07/12/16 00:36 07/12/16 00:36 07/12/16 07:34 07/12/16 00:36 Intake and Output: 07/12/16 07/12/16 06:59 18:59 Intake Total 200 Output Total 400 Balance -200 - Medications Medications: Current Medications Acetaminophen (Tylenol 325mg Tab) 975 mg PO Q6 PRN PRN Reason: Pain, Mild (1-3) Last Admin: 07/11/16 10:26 Dose: 975 mg Aspirin (Aspirin Chewable) 81 mg PO DAILY [facility] Last Admin: 07/11/16 10:32 Dose: Not Given Clopidogrel Bisulfate (Plavix) 75 mg PO DAILY [facility] Last Admin: 07/11/16 10:34 Dose: Not Given Docusate Sodium (Colace) 100 mg PO BID [facility] Last Admin: 07/11/16 17:20 Dose: 100 mg Enoxaparin Sodium (Lovenox) 40 mg SC DAILY [facility] Last Admin: 07/11/16 10:34 Dose: Not Given Piperacillin Sod/Tazobactam (Sod 3.375 gm/ Sodium Chloride) 100 mls @ 200 mls/ hr IVPB Q6H [facility] Last Admin: 07/12/16 05:54 Dose: 200 mls/hr Dextrose/Sodium Chloride (Dextrose 5%-0.45% Ns 500 Ml) 500 mls @ 100 mls/hr IV .Q5H ONE Stop: 07/12/16 14:35 Metoprolol Tartrate (Lopressor) 25 mg PO BID [facility] Last Admin: 07/12/16 07:34 Dose: 25 mg Pantoprazole Sodium (Protonix Ec Tab) 40 mg PO DAILY [facility] Last Admin: 07/11/16 10:30 Dose: 40 mg - Labs Labs: 07/12/16 07:26 07/12/16 07:26 PT 13.6 SECONDS (9.7-12.2) H 07/10/16 07:14 INR 1.2 07/10/16 07:14 APTT 32 SECONDS (21-34) 07/10/16 07:14 Assessment and Plan - Assessment and Plan (Free Text) Assessment: (1) Cellulitis Assessment & Plan: Improving Continue Zosyn 3.375gm IVPB Q6H ID consult - Dr. Allison - help appreciated Afebrile, no leukocytosis (2) PVD Assessment & Plan: Patient with history of DVTs Vascular Surgery - Dr. Velasquez - help appreciated Angiogram - right pathway artherectomy and right superficial femoral artery stent 07/12/16 Continue ASA and Plavix Status: Acute (3) Heart valve replaced Assessment & Plan: INR 1.2 Continue Plavix and ASA Patient not on coumadin at home. F/U ECHO Cardio consult - Dr. Haddad - help appreciated Status: Acute (4) CAD (coronary artery disease) Assessment & Plan: Patient on ASA and Plavix at home, continue meds. Status: Acute (5) HTN (hypertension) Assessment & Plan: BP controlled Continue Lopressor 25 mg PO BID Status: Acute (6) Prophylactic measure Assessment & Plan: Pepcid 20 mg PO BID All management as per Dr. Verdin.
--- NOTE | 2016-07-12 10:14 | VAS ---
DATE: 07/12/2016 PREOPERATIVE DIAGNOSIS: Ischemic ulcer, right ankle. POSTOPERATIVE DIAGNOSIS: Ischemic ulcer, right ankle. PROCEDURE CARRIED OUT: Aortofemoral angiogram via left groin with selective catheterization of right femoral artery, Pathway atherectomy of the right superficial femoral artery, balloon angioplasty and placement of 6 mm EV3 stent. SURGEON: Royce Velasquez MD. FACTORER: None. ANESTHESIOLOGIST: Mr. Fredrick CRNA. INDICATIONS: The patient presented with an ischemic ulcer of the right ankle. Preoperative evaluation suggested the patient had an SFA stenosis/occlusion. OPERATIVE FINDINGS: In the aorta, iliac arteries are free of significant occlusive disease. Common femoral arteries are free of significant occlusive disease. On the right side, the superficial femoral artery had multiple stenoses down to below the Jake's canal, approximately 40% stenosis at the knee joint. Below this, the anterior tibia was occluded and the posterior tibial was the major vessel into the foot. The peroneal artery was open to the ankle. On the left side, there are multiple stenoses in the superficial femoral artery with a similar runoff pattern towards the foot. Detailed pictures of the foot were not taken on the left side. Subsequently to the performance of the diagnostic angiogram, A stiff-angled guidewire was advanced over the aortic bifurcation and a 7-Indian catheter was positioned in the proximal portion of the superficial femoral artery. Heparin was given. The lesion was crossed. A pathway atherectomy was deployed after we placed a filter wire distally. After we had done this, we carried out the atherectomy. The pictures were less than optimal. After this was done, it was touched up with a 5 mm and then subsequently 6 mm x 200 EV3 stents were deployed. Subsequent cosmetic pictures after touch up were excellent. The runoff remained unchanged distally. The device was then withdrawn and a Perclose device was deployed in the left groin. PROCEDURE CARRIED OUT: Aortofemoral angiogram with selective catheterization of right femoral artery, Pathway atherectomy and balloon angioplasty and stenting of the right superficial femoral artery. Perclose closure left groin. Royce Velasquez Jr., MD cc: Brandy Bull MD 56 TT: 07/12/2016 10:13:40 Confirmation # [id number] Dictation # [id number] mira ESPANA
[2016-07-12] MEDS: Enoxaparin 40 mg Syringe SC SCH (10:44)
[2016-07-12] MEDS ORDERED: Oxycodone/Acetaminophen 5/325 mg Tab PO ONE (10:50)
[2016-07-12] MEDS: Pantoprazole 40 mg EC Tab PO SCH ×2 (11:07→19:20)
[2016-07-12] MEDS: Piperacill/Tazo 3.375gm in Dex 50 ML IVPB SCH (18:00)
--- NOTE | 2016-07-12 23:07 | CP.PCM.PN ---
Subjective - Date & Time of Evaluation Date of Evaluation: 07/12/16 Time of Evaluation: 15:45 - Subjective Subjective: Patient s/p Rt. Leg GRIP BOSS ECHO shows mild to moderate (Bioprosthetic) Medical mgt Objective - Vital Signs/Intake and Output Vital Signs (last 24 hours): Temp Pulse Resp BP Pulse Ox 98.3 F 76 20 151/80 H 98 07/12/16 16:00 07/12/16 16:00 07/12/16 16:00 07/12/16 18:00 07/12/16 16:00 Intake and Output: 07/12/16 07/13/16 18:59 06:59 Intake Total 400 Balance 400 - Medications Medications: Current Medications Acetaminophen (Tylenol 325mg Tab) 975 mg PO Q6 PRN PRN Reason: Pain, Mild (1-3) Last Admin: 07/12/16 19:20 Dose: 975 mg Aspirin (Aspirin Chewable) 81 mg PO DAILY [facility] Last Admin: 07/12/16 10:46 Dose: Not Given Clopidogrel Bisulfate (Plavix) 75 mg PO DAILY [facility] Last Admin: 07/12/16 18:30 Dose: 75 mg Docusate Sodium (Colace) 100 mg PO BID [facility] Last Admin: 07/12/16 18:00 Dose: 100 mg Enoxaparin Sodium (Lovenox) 40 mg SC DAILY [facility] Last Admin: 07/12/16 10:44 Dose: Not Given Piperacillin Sod/Tazobactam Sod (Zosyn 3.375 Gm Iv Premix) 50 mls @ 100 mls/hr IVPB Q6H [facility] Last Admin: 07/12/16 18:00 Dose: 100 mls/hr Metoprolol Tartrate (Lopressor) 25 mg PO BID [facility] Last Admin: 07/12/16 18:00 Dose: 25 mg Pantoprazole Sodium (Protonix Ec Tab) 40 mg PO DAILY [facility] Last Admin: 07/12/16 19:20 Dose: 40 mg - Labs Labs: 07/12/16 07:26 07/12/16 07:26 PT 13.6 SECONDS (9.7-12.2) H 07/10/16 07:14 INR 1.2 07/10/16 07:14 APTT 32 SECONDS (21-34) 07/10/16 07:14
[2016-07-13] MEDS: Piperacill/Tazo 3.375gm in Dex 50 ML IVPB SCH ×3 (00:28→12:17)
[2016-07-13 08:01] LABS: BASO # 0.1 K/uL (0.0-0.2); EOS # 0.4 K/uL (0.0-0.7); MEAN PLATELET VOLUME 9.4 fL (7.2-11.7)
[2016-07-13 08:05] LABS: BASO % 0.6 % (0.0-2.0); EOS % 3.7 % (0.0-4.0); HEMATOCRIT 36.6 % (35.0-51.0); LYMPH # 2.3 K/uL (1.0-4.3); LYMPH % 23.3 % (20.0-40.0); MEAN CORPUSCULAR HEMOGLOBIN 21.8 pg (27.0-31.0); MEAN CORPUSCULAR HGB CONC 31.3 g/dL (33.0-37.0); MONO # 1.1 K/uL (0.0-0.8); MONO % 11.6 % (0.0-10.0); RED CELL DISTRIBUTION WIDTH 22.3 % (11.5-14.5); WHITE BLOOD COUNT 9.9 K/uL (4.8-10.8)
[2016-07-13 08:10] LABS: POTASSIUM 4.4 mmol/L (3.6-5.2)
[2016-07-13 08:12] LABS: BILIRUBIN,TOTAL 1.4 mg/dL (0.2-1.3); TOTAL PROTEIN 8.4 g/dL (6.3-8.3)
[2016-07-13 08:13] LABS: CALCIUM 9.6 mg/dl (8.6-10.4)
[2016-07-13 08:27] VITALS: BP 146/83; PULSE 100; TEMP 98.1; O2SAT 98
--- NOTE | 2016-07-13 09:30 | CP.PCM.PN ---
Subjective - Date & Time of Evaluation Date of Evaluation: 07/13/16 Time of Evaluation: 09:23 - Subjective Subjective: PGY-1 note for General Surgery, Dr. Velasquez Pt S&E. POD #1 right pathway artherectomy and right stent of superficial femoral artery. Nursing reports no acute events overnight. He reports sleeping well, with only slight pain at the angiogram site in left groin. He reports pain in his legs have improved. Objective - Vital Signs/Intake and Output Vital Signs (last 24 hours): Temp Pulse Resp BP Pulse Ox 98.1 F 100 H 20 146/83 98 07/13/16 08:00 07/13/16 08:00 07/13/16 08:00 07/13/16 08:00 07/13/16 08:00 Intake and Output: 07/13/16 07/13/16 06:59 18:59 Intake Total 100 Output Total 750 Balance -650 - Medications Medications: Current Medications Acetaminophen (Tylenol 325mg Tab) 975 mg PO Q6 PRN PRN Reason: Pain, Mild (1-3) Last Admin: 07/12/16 19:20 Dose: 975 mg Aspirin (Aspirin Chewable) 81 mg PO DAILY [facility] Last Admin: 07/12/16 10:46 Dose: Not Given Clopidogrel Bisulfate (Plavix) 75 mg PO DAILY [facility] Last Admin: 07/12/16 18:30 Dose: 75 mg Docusate Sodium (Colace) 100 mg PO BID [facility] Last Admin: 07/12/16 18:00 Dose: 100 mg Enoxaparin Sodium (Lovenox) 40 mg SC DAILY [facility] Last Admin: 07/12/16 10:44 Dose: Not Given Piperacillin Sod/Tazobactam Sod (Zosyn 3.375 Gm Iv Premix) 50 mls @ 100 mls/hr IVPB Q6H [facility] Last Admin: 07/13/16 06:30 Dose: 100 mls/hr Metoprolol Tartrate (Lopressor) 25 mg PO BID [facility] Last Admin: 07/12/16 18:00 Dose: 25 mg Pantoprazole Sodium (Protonix Ec Tab) 40 mg PO DAILY [facility] Last Admin: 07/12/16 19:20 Dose: 40 mg - Labs Labs: 07/13/16 07:49 07/13/16 07:47 PT 13.6 SECONDS (9.7-12.2) H 07/10/16 07:14 INR 1.2 07/10/16 07:14 APTT 32 SECONDS (21-34) 07/10/16 07:14 - Constitutional Appears: Non-toxic, No Acute Distress - Head Exam Head Exam: ATRAUMATIC, NORMOCEPHALIC - Eye Exam Eye Exam: EOMI - ENT Exam ENT Exam: Mucous Membranes Moist - Respiratory Exam Respiratory Exam: NORMAL BREATHING PATTERN - Exam Additional comments: No hematoma at left groin cath site - Extremities Exam Extremities Exam: Tenderness. absent: Pedal Edema - Neurological Exam Neurological Exam: Alert, Awake, Oriented x3 - Psychiatric Exam Psychiatric exam: Normal Affect, Normal Mood - Skin Skin Exam: Normal Color, Warm Assessment and Plan - Assessment and Plan (Free Text) Assessment: 81 yo male with chronic PVD, foot ulcer, POD1 from right pathway artherectomy and right stent of superficial femoral artery Plan: No hematoma at right groin cath site Surgical team will sign off
[2016-07-13] MEDS: Pantoprazole 40 mg EC Tab PO SCH (10:48)
[2016-07-13] MEDS: Enoxaparin 40 mg Syringe SC SCH (10:49)
--- NOTE | 2016-07-14 08:15 | CARD ---
APPROVED REPORT EXAM: Two-dimensional and M-mode echocardiogram with Doppler and color Doppler. Other Information Quality : GoodRhythm : INDICATION Congenital Heart Disease ISCHEMIC LEG ULCER, AORTIC STENOSIS S/P avr (bio), AVR RISK FACTORS Hypertension 2D DIMENSIONS LVOT Diameter1.2 (1.8-2.4cm) M-Mode DIMENSIONS RVDd1.49 (2.1-3.2cm)Left Atrium (MM)4.62 (2.5-4.0cm) IVSd1.15 (0.7-1.1cm)Aortic Root2.39 (2.2-3.7cm) LVDd3.09 (4.0-5.6cm)Aortic Cusp Exc.1.46 (1.5-2.0cm) PWd1.53 (0.7-1.1cm)FS (%) 25 % LVDs2.33 (2.0-3.8cm)LVEF (%)50 (>50%) Aortic Valve AoV Peak Sdyaudor970.4cm/sAoV VTI53.1cmAO Peak GR.35mmHg LVOT Peak Teeudngn061.1cm/sLVOT VTI33.50cmAO Mean GR.25mmHg ELKE (VMAX)0.34bn1XGN (VTI)0.67cm2 Mitral Valve MV E Oslxhfvk45.4cm/sMV A Dwcirmkh85.0cm/sE/A ratio1.2 TDI E/Lateral E'0.0E/Medial E'0.0 Tricuspid Valve TR Peak Leddmlon954zh/sTR Peak Gr.82qlOfFXDX80ftYu LEFT VENTRICLE The Left Ventricle is moderatelyborderline dilated. There is moderate concentric left ventricular hypertrophy. The left ventricular function is normal. The left ventricular ejection fraction is within the normal range. The Ejection Fraction is 50-55%. No regional wall motion abnormalities noted. The left ventricular diastolic function is normal. No left ventricle thrombus noted on this study. There is no ventricular septal defect visualized. There is no left ventricular aneurysm. There is no mass noted in the left ventricle. RIGHT VENTRICLE The right ventricle is normal size. There is normal right ventricular wall thickness. The right ventricular systolic function is normal. ATRIA The left atrium is moderately dilated. The right atrium size is normal. The interatrial septum is intact with no evidence for an atrial septal defect. AORTIC VALVE The aortic valve is normal in structure and function. No aortic regurgitation is present. There is no aortic valvular stenosis. There is no aortic valvular vegetation. 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 MITRAL VALVE The mitral valve is normal in structure and function. There is no evidence of mitral valve prolapse. There is no mitral valve stenosis. Mitral regurgitation is mild to moderate. TRICUSPID VALVE The tricuspid valve is normal in structure and function. There is no tricuspid valve regurgitation noted. There is no tricuspid valve prolapse or vegetation. There is no tricuspid valve stenosis. PULMONIC VALVE The pulmonary valve is normal in structure and function. There is no pulmonic valvular regurgitation. There is no pulmonic valvular stenosis. GREAT VESSELS The aortic root is normal in size. The ascending aorta is normal in size. The pulmonary artery is normal. The IVC is normal in size and collapses >50% with inspiration. PERICARDIAL EFFUSION The pericardium appears normal. There is no pleural effusion. <Conclusion> The Left Ventricle is moderatelyborderline dilated. There is moderate concentric left ventricular hypertrophy. The Ejection Fraction is 50-55%. The left atrium is moderately dilated. 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
--- NOTE | 2016-08-07 09:32 | DS ---
The patient admitted to hospital with chief complaint of pain in lower extremity ____. The patient o n bedrest, IV antibiotics. Dr. Velasquez for angiogram. The patient ____ discharge to be followed as outpatient. Brandy Bull MD cc: [phone] TT: 08/06/2016 21:24:13 sn 08/07/2016 08:31:11
== END 2016-07-13 15:00 | disposition home or self-care (01) | DRG 271 ==
LOC: C.ER 10:49 → C.9E 13:43 → C.3T 19:15 → OBSVTOIN 07-10 12:38
PROVIDERS: ADMIT Internal Medicine Pulmonary Disease; ATTEND Internal Medicine Pulmonary Disease
PROC: 04CK3ZZ Extirpation of Matter from Right Femoral Artery, Percutaneous Approach (ICD-10-PCS; 2016-07-12)
PROC: 047K34Z Dilation of Right Femoral Artery with Drug-eluting Intraluminal Device, Percutaneous Approach (ICD-10-PCS; principal; 2016-07-12 07:00)
DX: I70.233 Atherosclerosis of native arteries of right leg with ulceration of ankle (principal); L03.115 Cellulitis of right lower limb; D64.9 Anemia, unspecified; I25.10 Atherosclerotic heart disease of native coronary artery without angina pectoris; L97.319 Non-pressure chronic ulcer of right ankle with unspecified severity; Z90.49 Acquired absence of other specified parts of digestive tract; Z87.81 Personal history of (healed) traumatic fracture; Z86.010 Personal history of colon polyps

== ENCOUNTER 2016-08-07 10:13 | Observation (INO) | payer MEDICARE ==
[2016-08-04 13:09] VITALS: BMI 12.4
[2016-08-07] MEDS ORDERED: Propofol 10 mg/ml Inj (20 ML) ONE (15:11)
[2016-08-07] MEDS ORDERED: Midazolam 2 MG/2 ML VIAL ONE (15:12)
[2016-08-07] MEDS ORDERED: Lidocaine 2% Inj (20ml) ONE (15:19)
--- NOTE | 2016-08-07 17:01 | PCM.SURG1 ---
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 Posteriot tibial runoff to foot on left. right sided stnets widely patent Post-Operative Diagnosis: same Operation Performed: aortofemoral angiogram via right groin with selective catherization of left femoral artery. pathway atherectomy of left sfa. balloon angioplasty and 6x200 , 6x40 stent to left sfa. perclose right groin Specimen/Specimens Removed: 0 Estimated Blood Loss: EBL {In ML}: 25 Blood Products Given: N/A Drains Used: No Drains Post-Op Condition: Good Date of Surgery/Procedure: 08/07/16 Time of Surgery/Procedure: 17:03
[2016-08-07] MEDS ORDERED: Dextrose 5%/0.45% NS 1,000 ML IV SCH (17:30)
[2016-08-08 01:27] VITALS: RESP 20
--- NOTE | 2016-08-08 09:48 | CP.PCM.PN ---
Subjective - Date & Time of Evaluation Date of Evaluation: 08/08/16 Time of Evaluation: 07:30 - Subjective Subjective: PGY-[address] Velasquez: Patient seen and examined. Patient states he feels well and denies pain in left leg. Patient tolerating diet well. Patient denies nausea and vomiting. Objective - Vital Signs/Intake and Output Vital Signs (last 24 hours): Temp Pulse Resp BP Pulse Ox 98.3 F 70 20 160/66 H 96 08/08/16 08:00 08/08/16 08:00 08/08/16 08:00 08/08/16 08:00 08/08/16 08:00 - Medications Medications: Current Medications Aspirin (Aspirin Chewable) 81 mg PO DAILY [facility] Clopidogrel Bisulfate (Plavix) 75 mg PO DAILY [facility] Docusate Sodium (Colace) 100 mg PO BID [facility] Last Admin: 08/07/16 18:38 Dose: Not Given Famotidine (Pepcid) 20 mg PO BID [facility] Last Admin: 08/07/16 18:41 Dose: 20 mg Dextrose/Sodium Chloride (Dextrose 5%/0.45% Ns 1000 Ml) 1,000 mls @ 80 mls/hr IV .[id number] [facility] Last Admin: 08/07/16 18:40 Dose: 80 mls/hr Metoprolol Tartrate (Lopressor) 25 mg PO BID [facility] Last Admin: 08/07/16 18:40 Dose: 25 mg - Constitutional Appears: Well, Non-toxic, No Acute Distress - Head Exam Head Exam: ATRAUMATIC, NORMAL INSPECTION - Eye Exam Eye Exam: EOMI - ENT Exam ENT Exam: Mucous Membranes Moist - Respiratory Exam Respiratory Exam: Clear to Ausculation Bilateral - Cardiovascular Exam Cardiovascular Exam: +S1, +S2 - GI/Abdominal Exam GI & Abdominal Exam: Soft, Normal Bowel Sounds. absent: Tenderness - Extremities Exam Additional comments: left lower extremity with palpable PT pulses, warm to touch right groin catheterization site clean, dry, soft- no hematoma appreciated on examination Assessment and Plan - Assessment and Plan (Free Text) Assessment: 81 year old male with left sfa occlusion, s/p aortofemoral angiogram via right ignacio with selective catheterization of left femoral artery, POD #1 - Patient with palpable PT pulses - Patient cleared for discharge by Dr. Velasquez - Patient is to resume home medications on discharge - Patient is to call Dr. Velasquez's office for follow up appointment next week - D/W Dr. Velasquez
[2016-08-08 11:14] LABS: HEMATOCRIT 32.8 % (35.0-51.0); MEAN CORPUSCULAR HEMOGLOBIN 21.8 pg (27.0-31.0); MEAN CORPUSCULAR HGB CONC 30.7 g/dL (33.0-37.0); MEAN PLATELET VOLUME 9.4 fL (7.2-11.7); RED CELL DISTRIBUTION WIDTH 21.3 % (11.5-14.5); WHITE BLOOD COUNT 10.7 K/uL (4.8-10.8)
[2016-08-08 11:27] LABS: CHLORIDE 101 mmol/L (98-107); POTASSIUM 4.1 mmol/L (3.6-5.2); SODIUM 138 mmol/L (132-148)
[2016-08-08 11:29] LABS: AST/SGOT 27 U/L (17-59); BILIRUBIN,TOTAL 0.4 mg/dL (0.2-1.3); CARBON DIOXIDE 24 mmol/L (22-30); GFR AFRICAN-AMERICAN > 60
[2016-08-08 11:30] LABS: ALB/GLOB RATIO 1.1 (1.0-2.1); ALKALINE PHOSPHATASE 78 U/L (38-126); ALT/SGPT < 6 U/L (21-72); BLOOD UREA NITROGEN 13 mg/dL (9-20); CALCIUM 9.1 mg/dl (8.6-10.4); GLUCOSE,RANDOM 116 mg/dL (75-110); TOTAL PROTEIN 7.8 g/dL (6.3-8.3)
[2016-08-08 16:20] VITALS: BP 154/75; PULSE 73; TEMP 98.6; O2SAT 100
--- NOTE | 2016-08-11 13:29 | CP.SDSHP ---
Same Day Surgery H & P - History Proposed Procedure: angiogram Pre-Op Diagnosis: rest pain left foot - Previous Medical/Surgical History Cardiac: Hypertension, ASHD/CAD, Valvular Heart Disease, Previous AR, Hx of CHF , Angina, Arrhythmia, PVD, Other Pulmonary: Emphysema/COPD Endocrine/Metabolic: Other Neuro: TIA/CVA Pain: 2.Mild Pain Previous Surgical History: previous rx of right leg - Allergies Allergies: Allergies No Known Allergies Allergy (Verified 07/07/16 10:57) - Current Medications Current Medications: see nurse's list - Physical Exam Vital Signs: see notes Neuro: WNL Heart: WNL - Impression Impression: pvd. for left leg plasty Short Stay Discharge - Short Stay Discharge Admitting Diagnosis/Reason for Visit: PVD SP ANGIOPLASTY Disposition: HOME/ ROUTINE Referrals: Royce Velasquez Jr., MD [Staff Provider] - 7 Days Instructions: Peripheral Vascular Disease (DC), Peripheral Vascular Angioplasty (DC) Additional Instructions (Diet, Activity): Patient is cleared for discharge by Dr. Velasquez. Patient is to call Dr. Velasquez's office to schedule follow up appointment within the next week. Patient is to resume home medications on discharge.
--- NOTE | 2016-08-11 13:54 | VAS ---
DATE: 08/07/2016 PREOPERATIVE DIAGNOSIS: Rest pain, left foot. PROCEDURE CARRIED OUT: Aortofemoral angiogram via right groin with selective catheterization of left femoral artery, Pathway atherectomy of left superficial femoral artery, balloon angioplasty and depl oyment of a 6 mm stent in the left superficial femoral artery. Perclose deployment, right groin. OPERATIVE FINDINGS: The aorta and renal arteries are free of significant occlusive disease. Both co mmon, internal and external iliac arteries are free of significant occlusive disease. Common femoral arteries, superficial femoral arteries are widely patent. On the right side, the previously placed stents were widely patent with good runoff via the posterior tibial to the foot; however, detailed pi ctures were not able to be seen because of the need to limit the dye on the right side. On the left side, there was marked disease throughout the superficial femoral artery, reconstituting the poplite al artery and mono-runoff via the left leg again was via the posterior tibial artery. Subsequent to the performance of diagnostic arteriogram, a stiff-angled guidewire was advanced over t he aortic bifurcation and the catheter positioned in the proximal portion of the superficial femoral artery. Using road mapping techniques, the lesion was crossed. This was subsequently exchanged for an 0.014 wire and after the patient was heparinized, the atherectomy device was used. The subsequent pictures after completion with the Pathway atherectomy device stil showed residual degrees of stenos is. Balloon angioplasty was carried out and then eventually stents were deployed throughout this reg ion. The final cosmetic result was excellent with brisk flow into the foot. Subsequent to this, pre ssure was applied to the groin and a Perclose device deployed on the right side. PROCEDURE CARRIED OUT: Aortofemoral angiogram via right groin with selective catheterization of left femoral artery, Pathway atherectomy of the left superficial femoral artery, balloon angioplasty and deployment of 6 x 206 x 40 stent to the left superficial femoral artery. Perclose device was given i n the right groin. Blood loss for the procedure was 25 mL. Royce Velasquez Jr., MD cc: [phone] TT: 08/11/2016 13:54:20 Confirmation # [id number] Dictation # [id number] tn
== END 2016-08-08 15:30 | disposition home or self-care (01) ==
LOC: C.SPRAD 10:13 → C.9S 17:05 → C.3T 18:29
PROVIDERS: ADMIT Surgery Vascular Surgery; ATTEND Surgery Vascular Surgery
DX: I77.1 Stricture of artery (principal); Z68.1 Body mass index [BMI] 19.9 or less, adult; I70.222 Atherosclerosis of native arteries of extremities with rest pain, left leg
CPT/HCPCS: 36247; 36415; 37227; 75625; 75716; 75774; 80053; 85027; 94770; 97116; 97162; C1724; C1725; C1760; C1766; C1769; C1876; C1884; G0378; G8978; G8979; J1644; J2250; J2704; J3010; J7042

== ENCOUNTER 2016-08-25 19:44 | Inpatient (IN) | payer MEDICARE, OTHER ==
[2016-08-25 19:44] VITALS: BMI 12.4
--- NOTE | 2016-08-25 20:59 | C.PDOC ---
History Of Present Illness Patient presents to the ER with a complaint of bilateral leg pain and edema. Patient reports having bypass done recently on 08/07. Denies nausea, SOB, or chest pain. Time Seen by Provider: 08/25/16 20:59 Chief Complaint (Nursing): Lower Extremity Problem/Injury History Per: Patient History/Exam Limitations: no limitations Onset/Duration Of Symptoms: Hrs Current Symptoms Are (Timing): Still Present Severity: Moderate Pain Scale Rating Of: 4 Recent travel outside of the [place]: No Past Medical History Reviewed: Historical Data, Nursing Documentation, Vital Signs Vital Signs: Last Vital Signs Temp 97.8 F 08/26/16 01:15 Pulse 80 08/26/16 01:15 Resp 20 08/26/16 01:15 BP 149/66 08/26/16 01:15 Pulse Ox 99 08/26/16 01:15 - Medical History PMH: Anemia, Arthritis (B/L KNEE JT L >R), Colonic Polyps, Fractures (ANKLE), Gall Bladder Disease (GALLSTONES ROBIN), HTN, Peripheral Edema Surgical History: Cholecystectomy, Endoscopy - [facility] Procedures CORONAR ARTERIOGR-2 CATH (06/26/14) CT SCAN OF ABD AORTA USING OTH CONTRAST (01/26/16) CT SCAN OF BI LOW EXTREM ART USING OTH CONTRAST (01/26/16) DILATION OF R FEM ART WITH DRUG-ELUT INTRA, PERC APPROACH (07/10/16) ETHMOIDECTOMY (01/27/14) EXTIRPATION OF MATTER FROM R FEM ART, PERC APPROACH (07/10/16) INTRANASAL ANTROTOMY (01/27/14) LEFT HEART CARDIAC CATH (06/26/14) LT HEART ANGIOCARDIOGRAM (06/26/14) SPHENOIDOTOMY (01/27/14) SUBMUC NASAL SEPT RESECT (01/27/14) TURBINECTOMY NEC (01/27/14) Family History: States: No Known Family Hx - Social History Hx Alcohol Use: No Hx Substance Use: No - Immunization History Hx Tetanus Toxoid Vaccination: No Hx Influenza Vaccination: No Hx Pneumococcal Vaccination: No Review Of Systems Cardiovascular: Negative for: Chest Pain Respiratory: Negative for: Shortness of Breath Gastrointestinal: Negative for: Nausea Musculoskeletal: Positive for: Leg Pain (Bilateral), Other (Bilateral leg edema) Physical Exam - Physical Exam Appears: Non-toxic Skin: Warm, Dry Oral Mucosa: Moist Chest: Symmetrical, No Tenderness Cardiovascular: Rhythm Regular, No Murmur Respiratory: No Rales, No Rhonchi, No Wheezing Gastrointestinal/Abdominal: Soft, No Tenderness Back: Normal Inspection Extremity: Other (Healing bilateral ankle ulcers) Extremity: Bilateral: Atraumatic Neurological/Psych: Oriented x3, Normal Speech, Normal Cognition Disoriented To: Person Gait: With Assistance ED Course And Treatment - Laboratory Results Result Diagrams: 08/25/16 21:50 08/25/16 21:50 O2 Sat by Pulse Oximetry: 98 (Room air) Pulse Ox Interpretation: Normal Progress Note: Blood work and urinalysis ordered. Morphine IV and IV fluids administered. Disposition Discussed With Dr.: Brandy Verdin Comment: accepted the pt on his service and took over the care at Doctor Will See Patient In The: Hospital Counseled Patient/Family Regarding: Studies Performed, Diagnosis - Disposition Disposition: HOSPITALIZED Disposition Time: 20:59 Condition: FAIR - Clinical Impression Clinical Impression: Cellulitis, Swollen leg, Ischemic ulcer of ankle - Scribe Statement The provider has reviewed the documentation as recorded by the Scribtarun Wood All medical record entries made by the Anthonyibtarun were at my direction and personally dictated by me. I have reviewed the chart and agree that the record accurately reflects my personal performance of the history, physical exam, medical decision making, and the department course for this patient. I have also personally directed, reviewed, and agree with the discharge instructions and disposition. Decision To Admit - Pt Status Changed To: Hospital Disposition Of: Inpatient - Admit Certification Admit to Inpatient:: After my assessment, the patient will require hospitalization for at least two midnights. This is because of the severity of symptoms shown, intensity of services needed, and/or the medical risk in this patient being treated as an outpatient. - InPatient: Physician Admission Certification: I certify that this patient requires 2 or more midnights of care for the following reason:: After my assessment, the patient will require hospitalization for at least two midnights. This is because of the severity of symptoms shown, intensity of services needed, and/or the medical risk in this patient being treated as an outpatient. - . Bed Request Type: Regular Admitting Physician: Brandy Verdin Patient Diagnosis: Cellulitis, Swollen leg, Ischemic ulcer of ankle
[2016-08-25] MEDS ORDERED: Morphine 4 MG/ML VIAL IV ONE (21:08)
[2016-08-25 21:55] LABS: BASO # 0.1 K/uL (0.0-0.2); BASO % 1.1 % (0.0-2.0); EOS # 0.5 K/uL (0.0-0.7); EOS % 6.1 % (0.0-4.0); HEMATOCRIT 30.3 % (35.0-51.0); LYMPH # 1.2 K/uL (1.0-4.3); LYMPH % 14.4 % (20.0-40.0); MEAN CORPUSCULAR HEMOGLOBIN 22.4 pg (27.0-31.0); MEAN CORPUSCULAR HGB CONC 31.5 g/dL (33.0-37.0); MEAN PLATELET VOLUME 9.2 fL (7.2-11.7); MONO # 1.1 K/uL (0.0-0.8); MONO % 14.1 % (0.0-10.0); NRBC % 0.1 % (0.0-2.0); RED CELL DISTRIBUTION WIDTH 19.6 % (11.5-14.5); WHITE BLOOD COUNT 8.1 K/uL (4.8-10.8)
[2016-08-25 22:00] LABS: VENOUS BLOOD GAS BASE EXCESS 0.3 mmol/L (0.0-2.0); VENOUS BLOOD GAS PCO2 48 mmHg (40-60); VENOUS BLOOD PH 7.35 (7.32-7.43)
[2016-08-25 22:02] LABS: CHLORIDE 97 mmol/L (98-107); SODIUM 133 mmol/L (132-148)
[2016-08-25 22:03] LABS: POTASSIUM 4.4 mmol/L (3.6-5.2)
[2016-08-25 22:05] LABS: AST/SGOT 73 U/L (17-59); BILIRUBIN,TOTAL 0.9 mg/dL (0.2-1.3); CARBON DIOXIDE 27 mmol/L (22-30); GFR AFRICAN-AMERICAN 59
[2016-08-25 22:06] LABS: ALKALINE PHOSPHATASE 65 U/L (38-126); ALT/SGPT 65 U/L (21-72); BLOOD UREA NITROGEN 22 mg/dL (9-20); GLUCOSE,RANDOM 97 mg/dL (75-110); TOTAL PROTEIN 7.8 g/dL (6.3-8.3)
[2016-08-25] MEDS ORDERED: Morphine 4 MG/ML VIAL ONE (22:16)
[2016-08-25] MEDS ORDERED: Sodium Chloride 0.9% 1,000 ML ONE (22:16)
[2016-08-25] MEDS: Sodium Chloride 0.9% 1,000 ML IV SCH (22:20)
[2016-08-25 22:41] LABS: RBC URINE < 1 /hpf (0-3); URINE BACTERIA RARE (<OCC); URINE BILIRUBIN NEGATIVE (NEGATIVE); URINE BLOOD NEGATIVE (NEGATIVE); URINE COLOR Yellow (YELLOW); URINE GLUCOSE (UA) NORMAL (Normal); URINE KETONE NEGATIVE (NEGATIVE); URINE LEUKOCYTE ESTERASE NEG Leu/uL (Negative); URINE PROTEIN 1+ mg/dL (NEGATIVE); URINE UROBILINOGEN NORMAL mg/dL (0.2-1.0); WBC URINE 1 /hpf (0-5)
[2016-08-25] MEDS ORDERED: Piperacillin/Tazobact 3.375 gm 100 ML IVPB ONE (23:27)
[2016-08-25] MEDS: Piperacillin/Tazobact 3.375 GM in Sodium Chloride 100 ML IVPB SCH (23:29)
[2016-08-26] MEDS: Oxycodone/Acetaminophen 5/325 mg Tab PO PRN ×2 (01:50→10:27)
[2016-08-26] MEDS: Piperacillin/Tazobact 3.375 GM in Sodium Chloride 100 ML IVPB SCH ×4 (04:35→22:15)
[2016-08-26] MEDS: Sodium Chloride 0.9% 1,000 ML IV SCH ×3 (07:57→19:54)
--- NOTE | 2016-08-26 08:55 | CP.PCM.CON ---
History of Present Illness - History of Present Illness History of Present Illness: Vascular Surgery Consult Re: B/L LE cellulitis HPI: 81M presented to ED c/o B/L LE pain and clear yellow drainage from LE wounds x 1 week. He has endovascular stenting done recently to the L SFA. He had blisters over the B/L ankles that popped and began drainingat the beginning of the week. There is some odor to the L ankle and legs are tender around this area as well as up the ware. Denies F/C, chest pain, N/V/D, SOB, dysuria. PMH: COPD, CHF, Angina, CAD, HTN, Anemia PSH: Cardiac surgery- valve replacement, cholecystectomy SH: Former smoker x 60 years, quit 8 months ago, No EtOH or drug use. All: NKDA Meds: See MAR Review of Systems - Review of Systems All systems: reviewed and no additional remarkable complaints except (as per HPI ) Past Patient History - Past Medical History & Family History Past Medical History?: Yes - Past Social History Smoking Status: Former Smoker - CARDIAC Hx Hypertension: Yes Hx Peripheral Edema: Yes - PULMONARY Hx Respiratory Disorders: No - NEUROLOGICAL Hx Neurological Disorder: No - HEENT Hx HEENT Problems: No Other/Comment: uses eyeglasses - RENAL Hx Chronic Kidney Disease: No - ENDOCRINE/METABOLIC Hx Endocrine Disorders: No - HEMATOLOGICAL/ONCOLOGICAL Hx Anemia: Yes - INTEGUMENTARY Hx Dermatological Problems: Yes Other/Comment: Mark anterior lower leg-w/scattered open dry ulcers - MUSCULOSKELETAL/RHEUMATOLOGICAL Hx Arthritis: Yes (B/L KNEE JT L >R) Hx Fractures: Yes (ANKLE) - GASTROINTESTINAL Hx Gall Bladder Disease: Yes (GALLSTONES ROBIN) - GENITOURINARY/GYNECOLOGICAL Hx Genitourinary Disorders: No - PSYCHIATRIC Hx Substance Use: No - SURGICAL HISTORY Hx Cholecystectomy: Yes - ANESTHESIA Hx Anesthesia: Yes Hx Anesthesia Reactions: No Hx Malignant Hyperthermia: No Has any member of the family had a problem w/ anesthesia?: No Meds Allergies/Adverse Reactions: Allergies Allergy/AdvReac Type Severity Reaction Status Date / Time No Known Allergies Allergy Verified 08/25/16 20:48 - Medications Medications: Current Medications Aspirin (Aspirin Chewable) 81 mg PO DAILY [facility] Clopidogrel Bisulfate (Plavix) 75 mg PO DAILY [facility] Enoxaparin Sodium (Lovenox) 40 mg SC DAILY [facility] Sodium Chloride (Sodium Chloride 0.9%) 1,000 mls @ 100 mls/hr IV .Q10H [facility] Last Admin: 08/26/16 07:57 Dose: 100 mls/hr Piperacillin Sod/Tazobactam (Sod 3.375 gm/ Sodium Chloride) 100 mls @ 200 mls/ hr IVPB Q6H [facility] Last Admin: 08/26/16 04:35 Dose: 200 mls/hr Vancomycin HCl 750 mg/ Sodium (Chloride) 250 mls @ 166.6 mls/hr IVPB Q12H [facility] Last Admin: 08/26/16 01:03 Dose: 166.6 mls/hr Metoprolol Tartrate (Lopressor) 25 mg PO BID [facility] Oxycodone/Acetaminophen (Percocet 5/325 Mg Tab) 1 tab PO Q4 PRN PRN Reason: Pain, moderate (4-7) Stop: 08/28/16 23:08 Last Admin: 08/26/16 01:50 Dose: 1 tab Pantoprazole Sodium (Protonix Inj) 40 mg IVP DAILY [facility] Physical Exam - Constitutional Appears: Non-toxic, No Acute Distress - Head Exam Head Exam: ATRAUMATIC, NORMOCEPHALIC - Eye Exam Eye Exam: EOMI. absent: Scleral icterus - ENT Exam ENT Exam: Mucous Membranes Moist Additional comments: trachea midline - Respiratory Exam Respiratory Exam: NORMAL BREATHING PATTERN. absent: Respiratory Distress - Cardiovascular Exam Cardiovascular Exam: RRR. absent: Bradycardia, Tachycardia - GI/Abdominal Exam GI & Abdominal Exam: Soft. absent: Distended, Tenderness - Rectal Exam Rectal Exam: Deferred - Extremities Exam Extremities exam: Positive for: pedal edema (b/l), tenderness (below knees to ankles b/l) Additional comments: yellow weeping lesions around ankles, B/L. Odor from L side ankle. Most TTP at lesions. Darker discoloration of skin from just below knee to ankle on R side and from mid ware to ankle on L side - Back Exam Back exam: absent: CVA tenderness (L), CVA tenderness (R) - Neurological Exam Neurological exam: Alert, Oriented x3 - Psychiatric Exam Psychiatric exam: Normal Affect, Normal Mood - Skin Skin Exam: Dry, Warm Results - Vital Signs Recent Vital Signs: Last Vital Signs Temp 98.6 F 08/26/16 07:19 Pulse 86 08/26/16 07:19 Resp 20 05/13/17 07:19 BP 149/65 08/26/16 07:19 Pulse Ox 96 08/26/16 07:19 - Labs Result Diagrams: 08/25/16 21:50 08/25/16 21:50 Assessment & Plan - Assessment and Plan (Free Text) Assessment: 81M with PVD and weeping ankle lesions B/L Plan: Continue Abx per ID Analgesia Wound care on board Rec: Silver sulfadiazene ointment to weeping areas Tefla dressing with ABD (or 4x4s) and Kerlex wrap D/W Dr. Navas PGY3
[2016-08-26] MEDS: Enoxaparin 40 mg Syringe SC SCH (10:22)
[2016-08-26] MEDS: Silver Sulfadiazine 1% Cream (20 gm) TOP SCH (10:23)
[2016-08-27] MEDS: Sodium Chloride 0.9% 1,000 ML IV SCH ×4 (03:15→22:53)
[2016-08-27] MEDS: Piperacillin/Tazobact 3.375 GM in Sodium Chloride 100 ML IVPB SCH ×4 (05:00→22:52)
[2016-08-27 07:08] LABS: BASO % 0.7 % (0.0-2.0); EOS # 0.5 K/uL (0.0-0.7); EOS % 7.9 % (0.0-4.0); HEMATOCRIT 27.1 % (35.0-51.0); LYMPH # 0.9 K/uL (1.0-4.3); LYMPH % 13.7 % (20.0-40.0); MEAN CELL VOLUME 69.8 fL (80.0-94.0); MEAN CORPUSCULAR HEMOGLOBIN 21.7 pg (27.0-31.0); MEAN CORPUSCULAR HGB CONC 31.1 g/dL (33.0-37.0); MEAN PLATELET VOLUME 9.1 fL (7.2-11.7); MONO # 0.7 K/uL (0.0-0.8); RED CELL DISTRIBUTION WIDTH 19.6 % (11.5-14.5); WHITE BLOOD COUNT 6.8 K/uL (4.8-10.8)
[2016-08-27 07:25] LABS: CHLORIDE 102 mmol/L (98-107); SODIUM 133 mmol/L (132-148)
[2016-08-27 07:26] LABS: POTASSIUM 4.1 mmol/L (3.6-5.2)
[2016-08-27 07:28] LABS: GFR AFRICAN-AMERICAN > 60
[2016-08-27 07:29] LABS: BLOOD UREA NITROGEN 13 mg/dL (9-20); CALCIUM 8.5 mg/dl (8.6-10.4); CARBON DIOXIDE 23 mmol/L (22-30); GLUCOSE,RANDOM 85 mg/dL (75-110)
[2016-08-27] MEDS: Oxycodone/Acetaminophen 5/325 mg Tab PO PRN ×2 (09:32→19:35)
[2016-08-27] MEDS: Enoxaparin 40 mg Syringe SC SCH (09:49)
[2016-08-27] MEDS: Silver Sulfadiazine 1% Cream (20 gm) TOP SCH (10:00)
--- NOTE | 2016-08-27 13:53 | CP.PCM.PN ---
Subjective - Date & Time of Evaluation Date of Evaluation: 08/27/16 Time of Evaluation: 13:50 - Subjective Subjective: Surgery: Dr. Velasquez Patient doing well today. He reports LE swelling has decreased significantly since yesterday. He denies pain to the LE. Per nursing no acute events overnight. Objective - Vital Signs/Intake and Output Vital Signs (last 24 hours): Temp Pulse Resp BP Pulse Ox 97.3 F L 85 20 153/63 H 98 08/27/16 08:16 08/27/16 08:16 08/27/16 08:16 08/27/16 09:48 08/27/16 08:16 Intake and Output: 08/27/16 08/27/16 06:59 18:59 Intake Total 2450 Output Total 2600 Balance -150 - Medications Medications: Current Medications Aspirin (Aspirin Chewable) 81 mg PO DAILY [facility] Last Admin: 08/27/16 09:46 Dose: 81 mg Clopidogrel Bisulfate (Plavix) 75 mg PO DAILY [facility] Last Admin: 08/27/16 09:49 Dose: 75 mg Enoxaparin Sodium (Lovenox) 40 mg SC DAILY [facility] Last Admin: 08/27/16 09:49 Dose: 40 mg Sodium Chloride (Sodium Chloride 0.9%) 1,000 mls @ 100 mls/hr IV .Q10H [facility] Last Admin: 08/27/16 11:32 Dose: 100 mls/hr Piperacillin Sod/Tazobactam (Sod 3.375 gm/ Sodium Chloride) 100 mls @ 200 mls/ hr IVPB Q6H [facility] Last Admin: 08/27/16 10:00 Dose: 200 mls/hr Vancomycin HCl 750 mg/ Sodium (Chloride) 250 mls @ 166.6 mls/hr IVPB Q12H [facility] Last Admin: 08/27/16 11:33 Dose: 166.6 mls/hr Metoprolol Tartrate (Lopressor) 25 mg PO BID [facility] Last Admin: 08/27/16 09:48 Dose: 25 mg Oxycodone/Acetaminophen (Percocet 5/325 Mg Tab) 1 tab PO Q4 PRN PRN Reason: Pain, moderate (4-7) Stop: 08/28/16 23:08 Last Admin: 08/27/16 09:32 Dose: 1 tab Pantoprazole Sodium (Protonix Inj) 40 mg IVP DAILY [facility] Last Admin: 08/27/16 10:00 Dose: 40 mg Silver Sulfadiazine (Silvadene 1% 20 Gm) 1 ea TOP DAILY [facility] Last Admin: 08/27/16 10:00 Dose: 1 applic - Labs Labs: 08/27/16 07:01 08/27/16 07:01 - Constitutional Appears: Non-toxic, No Acute Distress - Head Exam Head Exam: ATRAUMATIC, NORMOCEPHALIC - Eye Exam Eye Exam: EOMI, Normal appearance - ENT Exam ENT Exam: Mucous Membranes Moist - Respiratory Exam Respiratory Exam: NORMAL BREATHING PATTERN. absent: Respiratory Distress - Cardiovascular Exam Cardiovascular Exam: REGULAR RHYTHM. absent: Tachycardia - Skin Skin Exam: Dry, Warm Additional comments: chronic skin changes noted to LE bilaterally superficial weeping skin wound noted, appear clean. no evidence of necrosis Assessment and Plan - Assessment and Plan (Free Text) Assessment: 81 y/o male w/ bilateral chronic leg wounds Plan: -f/u arterial doppler to confirm patency of stents -cont local wound care as ordered -cont abx -d/w Dr. Ron Hendrix PGY1
--- NOTE | 2016-08-27 14:19 | CP.PCM.CON ---
History of Present Illness - History of Present Illness History of Present Illness: 81M presented to ED c/o B/L LE pain and clear yellow drainage from LE wounds x 1 week. He has endovascular stenting done recently to the L SFA. He had blisters over the B/L ankles that popped and began drainingat the beginning of the week. There is some odor to the L ankle and legs are tender around this area as well as up the ware. Denies F/C, chest pain, N/V/D, SOB, dysuria. PMH: COPD, CHF, Angina, CAD, HTN, Anemia PSH: Cardiac surgery- valve replacement, cholecystectomy SH: Former smoker x 60 years, quit 8 months ago, No EtOH or drug use. All: NKDA Meds: See MAR - Medical History PMH: Anemia, Arthritis (B/L KNEE JT L >R), Colonic Polyps, Fractures (ANKLE), Gall Bladder Disease (GALLSTONES ROBIN), HTN, Peripheral Edema Surgical History: Cholecystectomy, Endoscopy - [facility] Procedures CORONAR ARTERIOGR-2 CATH (06/26/14) CT SCAN OF ABD AORTA USING OTH CONTRAST (01/26/16) CT SCAN OF BI LOW EXTREM ART USING OTH CONTRAST (01/26/16) DILATION OF R FEM ART WITH DRUG-ELUT INTRA, PERC APPROACH (07/10/16) ETHMOIDECTOMY (01/27/14) EXTIRPATION OF MATTER FROM R FEM ART, PERC APPROACH (07/10/16) INTRANASAL ANTROTOMY (01/27/14) LEFT HEART CARDIAC CATH (06/26/14) LT HEART ANGIOCARDIOGRAM (06/26/14) SPHENOIDOTOMY (01/27/14) SUBMUC NASAL SEPT RESECT (01/27/14) TURBINECTOMY NEC (01/27/14) Review of Systems - Review of Systems All systems: reviewed and no additional remarkable complaints except - Constitutional Constitutional: As Per HPI. absent: Fever - EENT Eyes: absent: As Per HPI, Blind Spots, Blurred Vision, Change in Vision, Decreased Night Vision, Diplopia, Discharge, Dry Eye, Exophthalmos, Floaters, Irritation, Itchy Eyes, Loss of Peripheral Vision, Pain, Photophobia, Requires Corrective Lenses, Sees Flashes, Spots in Vision, Tunnel Vision, Other Visual Disturbances, Loss of Vision, Other Ears: absent: As Per HPI, Decreased Hearing, Ear Discharge, Ear Pain, Tinnitus, Abnormal Hearing, Disequilibrium, Dizziness, Other Nose/Mouth/Throat: absent: As Per HPI, Epistaxis, Nasal Congestion, Nasal Discharge, Nasal Obstruction, Nasal Trauma, Nose Pain, Post Nasal Drip, Sinus Pain, Sinus Pressure, Bleeding Gums, Change in Voice, Dental Pain, Dry Mouth, Dysphagia, Halitosis, Hoarsness, Lip Swelling, Mouth Lesions, Mouth Pain, Odynophagia, Sore Throat, Throat Swelling, Tongue Swelling, Facial Pain, Neck Pain, Neck Mass, Other - Cardiovascular Cardiovascular: As Per HPI - Respiratory Respiratory: absent: As Per HPI, Cough, Dyspnea, Hemoptysis, Dyspnea on Exertion , Wheezing, Snoring, Stridor, Pain on Inspiration, Chest Congestion, Excessive Mucous Production, Change in Mucous Color, Pain with Coughing, Other - Gastrointestinal Gastrointestinal: absent: As Per HPI, Abdominal Pain, Belching, Bloating, Change in Bowel Habits, Change in Stool Character, Coffee Ground Emesis, Constipation, Cramping, Diarrhea, Dyspepsia, Dysphagia, Early Satiety, Excessive Flatus, Fecal Incontinence, Heartburn, Hematemesis, Hematochezia, Loose Stools, Melena, Nausea, Odynophagia, Temesmus, Vomiting, Other - Genitourinary Genitourinary: absent: As Per HPI, Change in Urinary Stream, Difficulty Urinating, Dysuria, Flank Pain, Hematuria, Pyuria, Nocturia, Urinary Incontinence, Urinary Frequency, Urinary Hesitance, Urinary Urgency, Voiding Freq/Small Amts, Freq UTI, Hx Renal/Bladder Calculi, Hx /Renal Surgery, Bladder Distension, Other - Musculoskeletal Musculoskeletal: As Per HPI - Integumentary Integumentary: As Per HPI, Skin Pain, Wounds - Neurological Neurological: absent: As Per HPI, Abnormal Gait, Abnormal Hearing, Abnormal Movements, Abnormal Speech, Behavioral Changes, Burning Sensations, Confusion, Convulsions, Disequilibrium, Dizziness, Numbness, Focal Weakness, Frequent Falls , Headaches, Lack of Coordination, Loss of Vision, Memory Loss, Paresthesias, Radicular Pain, Restless Legs, Sensory Deficit, Syncope, Tingling, Tremor, Vertigo, Weakness, Other Visual Disturbances, Other - Psychiatric Psychiatric: absent: As Per HPI, Abnormal Sleep Pattern, Anhedonia, Anxiety, Auditory Hallucinations, Behavioral Changes, Change in Appetite, Change in Libido, Confusion, Depression, Difficulty Concentrating, Hallucinations, Homicidal Ideation, Hopelessness, Irritability, Memory Loss, Mood Swings, Panic Attacks, Paranoia, Suicidal Ideation, Visual Hallucinations, Tactile Hallucinations, Other - Endocrine Endocrine: absent: As Per HPI, Change in Body Appearance, Change in Libido, Cold Intolorance, Deepening of Voice, Excessive Sweating, Fatigue, Flushing, Heat Intolorance, Increase in Ring/Shoe/Hat Size, Palpitations, Polydipsia, Polyphagia, Polyuria, Other - Hematologic/Lymphatic Hematologic: absent: As Per HPI, Easy Bleeding, Easy Bruising, Lymphadenopathy, Other Past Patient History - Past Medical History & Family History Past Medical History?: Yes - Past Social History Smoking Status: Former Smoker - CARDIAC Hx Hypertension: Yes Hx Peripheral Edema: Yes - PULMONARY Hx Respiratory Disorders: No - NEUROLOGICAL Hx Neurological Disorder: No - HEENT Hx HEENT Problems: No Other/Comment: uses eyeglasses - RENAL Hx Chronic Kidney Disease: No - ENDOCRINE/METABOLIC Hx Endocrine Disorders: No - HEMATOLOGICAL/ONCOLOGICAL Hx Anemia: Yes - INTEGUMENTARY Hx Dermatological Problems: Yes Other/Comment: Mark anterior lower leg-w/scattered open dry ulcers - MUSCULOSKELETAL/RHEUMATOLOGICAL Hx Arthritis: Yes (B/L KNEE JT L >R) Hx Fractures: Yes (ANKLE) - GASTROINTESTINAL Hx Gall Bladder Disease: Yes (GALLSTONES ROBIN) - GENITOURINARY/GYNECOLOGICAL Hx Genitourinary Disorders: No - PSYCHIATRIC Hx Substance Use: No - SURGICAL HISTORY Hx Cholecystectomy: Yes - ANESTHESIA Hx Anesthesia: Yes Hx Anesthesia Reactions: No Hx Malignant Hyperthermia: No Has any member of the family had a problem w/ anesthesia?: No Meds Allergies/Adverse Reactions: Allergies Allergy/AdvReac Type Severity Reaction Status Date / Time No Known Allergies Allergy Verified 08/25/16 20:48 - Medications Medications: Current Medications Aspirin (Aspirin Chewable) 81 mg PO DAILY [facility] Last Admin: 08/27/16 09:46 Dose: 81 mg Clopidogrel Bisulfate (Plavix) 75 mg PO DAILY [facility] Last Admin: 08/27/16 09:49 Dose: 75 mg Enoxaparin Sodium (Lovenox) 40 mg SC DAILY [facility] Last Admin: 08/27/16 09:49 Dose: 40 mg Sodium Chloride (Sodium Chloride 0.9%) 1,000 mls @ 100 mls/hr IV .Q10H [facility] Last Admin: 08/27/16 11:32 Dose: 100 mls/hr Piperacillin Sod/Tazobactam (Sod 3.375 gm/ Sodium Chloride) 100 mls @ 200 mls/ hr IVPB Q6H [facility] Last Admin: 08/27/16 10:00 Dose: 200 mls/hr Vancomycin HCl 750 mg/ Sodium (Chloride) 250 mls @ 166.6 mls/hr IVPB Q12H [facility] Last Admin: 08/27/16 11:33 Dose: 166.6 mls/hr Metoprolol Tartrate (Lopressor) 25 mg PO BID [facility] Last Admin: 08/27/16 09:48 Dose: 25 mg Oxycodone/Acetaminophen (Percocet 5/325 Mg Tab) 1 tab PO Q4 PRN PRN Reason: Pain, moderate (4-7) Stop: 08/28/16 23:08 Last Admin: 08/27/16 09:32 Dose: 1 tab Pantoprazole Sodium (Protonix Inj) 40 mg IVP DAILY [facility] Last Admin: 08/27/16 10:00 Dose: 40 mg Silver Sulfadiazine (Silvadene 1% 20 Gm) 1 ea TOP DAILY [facility] Last Admin: 08/27/16 10:00 Dose: 1 applic Physical Exam - Constitutional Appears: Non-toxic, Chronically Ill - Head Exam Head Exam: ATRAUMATIC, NORMAL INSPECTION, NORMOCEPHALIC - Eye Exam Eye Exam: EOMI, PERRL. absent: Scleral icterus - ENT Exam ENT Exam: Mucous Membranes Dry, Normal External Ear Exam, Normal Oropharynx - Neck Exam Neck exam: Negative for: Lymphadenopathy, Thyromegaly - Respiratory Exam Respiratory Exam: Decreased Breath Sounds, Clear to Auscultation Bilateral - Cardiovascular Exam Cardiovascular Exam: REGULAR RHYTHM, +S1, +S2 - GI/Abdominal Exam GI & Abdominal Exam: Diminished Bowel Sounds, Distended, Soft. absent: Rebound , Rigid, Tenderness - Rectal Exam Rectal Exam: Deferred - Exam Exam: NORMAL INSPECTION - Extremities Exam Extremities exam: Positive for: pedal edema, tenderness. Negative for: calf tenderness, pedal pulses present Additional comments: yellow weeping lesions around ankles, B/L. Odor from L side ankle. Most TTP at lesions. Darker discoloration of skin from just below knee to ankle on R side and from mid ware to ankle on L side - Back Exam Back exam: absent: CVA tenderness (L), CVA tenderness (R) - Neurological Exam Neurological exam: Alert, CN II-XII Intact, Oriented x3, Reflexes Normal - Psychiatric Exam Psychiatric exam: Normal Mood - Skin Skin Exam: Dry, Intact Results - Vital Signs Recent Vital Signs: Last Vital Signs Temp 97.3 F L 08/27/16 08:16 Pulse 85 08/27/16 08:16 Resp 20 08/27/16 08:16 BP 153/63 H 08/27/16 09:48 Pulse Ox 98 08/27/16 08:16 - Labs Result Diagrams: 08/27/16 07:01 08/27/16 07:01 Labs: Laboratory Results - last 24 hr 08/27/16 08/27/16 08/27/16 07:01 07:01 11:04 WBC 6.8 RBC 3.89 L Hgb 8.4 L Hct 27.1 L MCV 69.8 L MCH 21.7 L MCHC 31.1 L RDW 19.6 H Plt Count 212 MPV 9.1 Neut % (Auto) 66.7 Lymph % (Auto) 13.7 L [place] % (Auto) 11.0 H Eos % (Auto) 7.9 H Baso % (Auto) 0.7 Neut # 4.6 Lymph # 0.9 L [place] # 0.7 Eos # 0.5 Baso # 0.0 Sodium 133 Potassium 4.1 Chloride 102 Carbon Dioxide 23 Anion Gap 12 BUN 13 Creatinine 1.0 Est GFR ( Amer) > 60 Est GFR (Non-Af Amer) > 60 Random Glucose 85 Calcium 8.5 L Vancomycin Trough 8.8 Assessment & Plan (1) Cellulitis Status: Acute (2) Ischemic ulcer of ankle Status: Acute (3) Swollen leg Status: Acute (4) CAD (coronary artery disease) Status: Acute (5) HTN (hypertension) Status: Acute (6) Heart valve replaced Status: Acute (7) History of DVT (deep vein thrombosis) Status: Acute - Assessment and Plan (Free Text) Assessment: CONT VANCO/ZOSYN FOR CELLULITIS DR LOPEZ FOR VASCULAR AWAIT CULTURES CONT WOUND CARE
[2016-08-28] MEDS: Piperacillin/Tazobact 3.375 GM in Sodium Chloride 100 ML IVPB SCH ×6 (04:25→22:53)
[2016-08-28 07:21] LABS: BASO # 0.1 K/uL (0.0-0.2); BASO % 0.8 % (0.0-2.0); EOS # 0.5 K/uL (0.0-0.7); EOS % 7.9 % (0.0-4.0); HEMATOCRIT 28.2 % (35.0-51.0); LYMPH # 1.2 K/uL (1.0-4.3); LYMPH % 17.9 % (20.0-40.0); MEAN CELL VOLUME 70.1 fL (80.0-94.0); MEAN CORPUSCULAR HEMOGLOBIN 21.6 pg (27.0-31.0); MEAN CORPUSCULAR HGB CONC 30.8 g/dL (33.0-37.0); MEAN PLATELET VOLUME 9.6 fL (7.2-11.7); MONO # 0.8 K/uL (0.0-0.8); MONO % 12.4 % (0.0-10.0); RED CELL DISTRIBUTION WIDTH 19.8 % (11.5-14.5); WHITE BLOOD COUNT 6.8 K/uL (4.8-10.8)
--- NOTE | 2016-08-28 07:32 | HP ---
An 81-year-old male chief complaint weakness, fatigue, tiredness. The patient has swelling in the lo wer extremity, nonhealing bilateral wound ulcers. The patient has peripheral vascular disease, hyper tension. PHYSICAL EXAMINATION: GENERAL: The patient is awake, alert and oriented. VITAL SIGNS: Temperature is 98, pulse 90. HEENT: Within normal limits. NECK: Supple. CHEST: Symmetrical. HEART: Regular. ABDOMEN: Soft. EXTREMITIES: Bilateral leg ulcers, infected wounds. The patient placed at bedrest, supportive care, antibiotics. Brandy Bull MD cc: [id number] TT: 08/26/2016 22:54:11 dn 08/28/2016 06:29:34
--- NOTE | 2016-08-28 07:34 | CP.PCM.PN ---
Subjective - Date & Time of Evaluation Date of Evaluation: 08/28/16 Time of Evaluation: 09:00 - Subjective Subjective: PGY2 on medicine Dr. Verdin service: Patient seen and examined at bedside this morning. Patient complains bilateral lower extremity pain but controlled with medication. Patient otherwise have no other complaints. Patient for arterial doppler today. Objective - Vital Signs/Intake and Output Vital Signs (last 24 hours): Temp Pulse Resp BP Pulse Ox 98.1 F 76 20 152/75 H 97 08/28/16 01:12 08/28/16 06:00 08/28/16 06:00 08/28/16 06:00 08/28/16 01:12 Intake and Output: 08/28/16 08/28/16 06:59 18:59 Intake Total 2350 Output Total 2000 Balance 350 - Medications Medications: Current Medications Aspirin (Aspirin Chewable) 81 mg PO DAILY [facility] Last Admin: 08/27/16 09:46 Dose: 81 mg Clopidogrel Bisulfate (Plavix) 75 mg PO DAILY [facility] Last Admin: 08/27/16 09:49 Dose: 75 mg Enoxaparin Sodium (Lovenox) 40 mg SC DAILY [facility] Last Admin: 08/27/16 09:49 Dose: 40 mg Famotidine (Pepcid) 20 mg PO DAILY [facility] Sodium Chloride (Sodium Chloride 0.9%) 1,000 mls @ 100 mls/hr IV .Q10H [facility] Last Admin: 08/27/16 22:53 Dose: 100 mls/hr Piperacillin Sod/Tazobactam (Sod 3.375 gm/ Sodium Chloride) 100 mls @ 200 mls/ hr IVPB Q6H [facility] Last Admin: 08/28/16 04:25 Dose: 200 mls/hr Vancomycin HCl 750 mg/ Sodium (Chloride) 250 mls @ 166.6 mls/hr IVPB Q12H [facility] Last Admin: 08/28/16 00:15 Dose: 166.6 mls/hr Metoprolol Tartrate (Lopressor) 25 mg PO BID [facility] Last Admin: 08/27/16 17:33 Dose: 25 mg Oxycodone/Acetaminophen (Percocet 5/325 Mg Tab) 1 tab PO Q4 PRN PRN Reason: Pain, moderate (4-7) Stop: 08/28/16 23:08 Last Admin: 05/14/17 19:35 Dose: 1 tab Silver Sulfadiazine (Silvadene 1% 20 Gm) 1 ea TOP DAILY [facility] Last Admin: 08/27/16 10:00 Dose: 1 applic - Labs Labs: 08/27/16 07:01 08/27/16 07:01 - Constitutional Appears: Non-toxic, No Acute Distress - Head Exam Head Exam: NORMAL INSPECTION, NORMOCEPHALIC - Eye Exam Eye Exam: Normal appearance Pupil Exam: NORMAL ACCOMODATION - ENT Exam ENT Exam: Mucous Membranes Moist - Respiratory Exam Respiratory Exam: Clear to Ausculation Bilateral, NORMAL BREATHING PATTERN. absent: Rhonchi, Wheezes - Cardiovascular Exam Cardiovascular Exam: REGULAR RHYTHM, +S1, +S2, Murmur. absent: Gallop, Rubs Additional comments: hx of aortic valve replacement - GI/Abdominal Exam GI & Abdominal Exam: Soft, Normal Bowel Sounds - Extremities Exam Extremities Exam: Pedal Edema - Neurological Exam Neurological Exam: Alert, Awake, Oriented x3 - Psychiatric Exam Psychiatric exam: Normal Mood - Skin Skin Exam: Intact, Rash (bilateral LE discoloration below knees, ankle dressing clean and intact), Warm Assessment and Plan - Assessment and Plan (Free Text) Assessment: Cellulitis Assessment & Plan: Afebrile, no leukocytosis ID Dr. Allison consulted. Wound care consulted. Podiatry Dr. Conner consulted. Zosyn 3.375gm IVPB Q6H started on 08/25 Vancomycin 750mg IVPB Q12H started on 08/26 PVD Assessment & Plan: Patient with history of DVTs Vascular Surgery Dr. Velasquez consulted. Continue ASA and Plavix F/U arterial doppler to check stent patency Status: Acute History of Aortic Valve Replacement Assessment & Plan: INR 1.2 on 06/2016 Continue Plavix and ASA Status: Acute CAD (coronary artery disease) Assessment & Plan: Patient on ASA and Plavix at home, continue meds. Status: Acute HTN (hypertension) Assessment & Plan: BP controlled Continue Lopressor 25 mg PO BID Status: Acute Prophylactic measure Assessment & Plan: Pepcid, Plavix All management as per Dr. Verdin.
[2016-08-28 08:02] LABS: CHLORIDE 102 mmol/L (98-107)
[2016-08-28 08:03] LABS: SODIUM 137 mmol/L (132-148)
[2016-08-28 08:04] LABS: POTASSIUM 4.3 mmol/L (3.6-5.2)
[2016-08-28 08:06] LABS: ALB/GLOB RATIO 0.8 (1.0-2.1); ALKALINE PHOSPHATASE 57 U/L (38-126); ALT/SGPT 47 U/L (21-72); AST/SGOT 40 U/L (17-59); BILIRUBIN,TOTAL 0.6 mg/dL (0.2-1.3); BLOOD UREA NITROGEN 10 mg/dL (9-20); CALCIUM 8.6 mg/dl (8.6-10.4); CARBON DIOXIDE 28 mmol/L (22-30); GFR AFRICAN-AMERICAN > 60; GLUCOSE,RANDOM 90 mg/dL (75-110); TOTAL PROTEIN 6.9 g/dL (6.3-8.3)
--- NOTE | 2016-08-28 08:06 | PN ---
DATE: 08/27/2016 Patient complaining of bilateral leg pain. Receiving IV antibiotic. Seen by vascular surgeon. Poss ibility of skin graft ____. Will discuss with vascular. Brandy Bull MD cc: [id number] TT: 08/27/2016 11:51:42 Confirmation # [id number] Dictation # [id number] 08/28/2016 07:04:18
[2016-08-28] MEDS: Oxycodone/Acetaminophen 5/325 mg Tab PO PRN (09:22)
[2016-08-28] MEDS: Enoxaparin 40 mg Syringe SC SCH (09:25)
[2016-08-28] MEDS: Sodium Chloride 0.9% 1,000 ML IV SCH ×2 (09:26→19:15)
--- NOTE | 2016-08-28 11:50 | CP.PCM.CON ---
History of Present Illness - History of Present Illness History of Present Illness: Podiatry consult note- Dr. Conner 81 year old male with PMHx of COPD, CHF, Angina, CAD, HTN, Anemia, with history of bilateral lower extremity stenting, most recently the left SFA. Patient has bilateral anterior leg ulcerations which he states have been present since January. He reports worsening of the ulcerations with increased drainage and malodor. Patient denies n/v/f/c/sob at this time. Patient has bandages clean dry and intact to bilateral lower extremities. Past Patient History - Past Medical History & Family History Past Medical History?: Yes - Past Social History Smoking Status: Former Smoker - CARDIAC Hx Hypertension: Yes Hx Peripheral Edema: Yes - PULMONARY Hx Respiratory Disorders: No - NEUROLOGICAL Hx Neurological Disorder: No - HEENT Hx HEENT Problems: No Other/Comment: uses eyeglasses - RENAL Hx Chronic Kidney Disease: No - ENDOCRINE/METABOLIC Hx Endocrine Disorders: No - HEMATOLOGICAL/ONCOLOGICAL Hx Anemia: Yes - INTEGUMENTARY Hx Dermatological Problems: Yes Other/Comment: Mark anterior lower leg-w/scattered open dry ulcers - MUSCULOSKELETAL/RHEUMATOLOGICAL Hx Arthritis: Yes (B/L KNEE JT L >R) Hx Fractures: Yes (ANKLE) - GASTROINTESTINAL Hx Gall Bladder Disease: Yes (GALLSTONES ROBIN) - GENITOURINARY/GYNECOLOGICAL Hx Genitourinary Disorders: No - PSYCHIATRIC Hx Substance Use: No - SURGICAL HISTORY Hx Cholecystectomy: Yes - ANESTHESIA Hx Anesthesia: Yes Hx Anesthesia Reactions: No Hx Malignant Hyperthermia: No Has any member of the family had a problem w/ anesthesia?: No Meds Allergies/Adverse Reactions: Allergies Allergy/AdvReac Type Severity Reaction Status Date / Time No Known Allergies Allergy Verified 08/25/16 20:48 - Medications Medications: Current Medications Aspirin (Aspirin Chewable) 81 mg PO DAILY [facility] Last Admin: 08/28/16 09:16 Dose: 81 mg Clopidogrel Bisulfate (Plavix) 75 mg PO DAILY [facility] Last Admin: 08/28/16 09:16 Dose: 75 mg Enoxaparin Sodium (Lovenox) 40 mg SC DAILY [facility] Last Admin: 08/28/16 09:25 Dose: 40 mg Famotidine (Pepcid) 20 mg PO DAILY [facility] Last Admin: 08/28/16 09:16 Dose: 20 mg Sodium Chloride (Sodium Chloride 0.9%) 1,000 mls @ 100 mls/hr IV .Q10H [facility] Last Admin: 08/28/16 09:26 Dose: 100 mls/hr Piperacillin Sod/Tazobactam (Sod 3.375 gm/ Sodium Chloride) 100 mls @ 200 mls/ hr IVPB Q6H [facility] Last Admin: 08/28/16 09:23 Dose: 200 mls/hr Vancomycin HCl 750 mg/ Sodium (Chloride) 250 mls @ 166.6 mls/hr IVPB Q12H [facility] Last Admin: 08/28/16 09:29 Dose: 166.6 mls/hr Metoprolol Tartrate (Lopressor) 25 mg PO BID [facility] Last Admin: 08/28/16 09:23 Dose: 25 mg Oxycodone/Acetaminophen (Percocet 5/325 Mg Tab) 1 tab PO Q4 PRN PRN Reason: Pain, moderate (4-7) Stop: 08/28/16 23:08 Last Admin: 08/28/16 09:22 Dose: 1 tab Silver Sulfadiazine (Silvadene 1% 20 Gm) 1 ea TOP DAILY [facility] Last Admin: 08/27/16 10:00 Dose: 1 applic Physical Exam - Constitutional Appears: Well, Non-toxic, No Acute Distress - Neurological Exam Neurological exam: Oriented x3 - Psychiatric Exam Psychiatric exam: Normal Affect, Normal Mood - Additional Findings Additional findings: DERMATOLOGIC: Bilateral anterior leg full thickness ulcerations with fibrotic base, moderate serous drainage present, positive mild malodor, wound edges are intact with mild periwound erythema, no streaking, no purulence, no tracking of the wounds. Remaining skin is intact, with diffuse xerosis bilaterally. VASCULAR: Moderate diffuse edema of bilateral lower extremities is present. There is increased skin temperature bilaterally NEUROLOGIC: Gross sensation intact, motor function intact ORTHOPEDIC: Pain on palpation to bilateral lower extremity wounds Results - Vital Signs Recent Vital Signs: Last Vital Signs Temp 98.1 F 08/28/16 01:12 Pulse 76 08/28/16 06:00 Resp 20 08/28/16 06:00 BP 152/75 H 08/28/16 09:23 Pulse Ox 97 08/28/16 01:12 - Labs Result Diagrams: 08/28/16 07:13 08/28/16 07:13 Labs: Laboratory Results - last 24 hr 08/27/16 08/28/16 08/28/16 11:04 07:13 07:13 WBC 6.8 RBC 4.02 L Hgb 8.7 L Hct 28.2 L MCV 70.1 L MCH 21.6 L MCHC 30.8 L RDW 19.8 H Plt Count 250 MPV 9.6 Neut % (Auto) 61.0 Lymph % (Auto) 17.9 L [place] % (Auto) 12.4 H Eos % (Auto) 7.9 H Baso % (Auto) 0.8 Neut # 4.2 Lymph # 1.2 [place] # 0.8 Eos # 0.5 Baso # 0.1 Sodium 137 Potassium 4.3 Chloride 102 Carbon Dioxide 28 Anion Gap 11 BUN 10 Creatinine 1.1 Est GFR ( Amer) > 60 Est GFR (Non-Af Amer) > 60 Random Glucose 90 Calcium 8.6 Total Bilirubin 0.6 AST 40 ALT 47 Alkaline Phosphatase 57 Total Protein 6.9 Albumin 3.1 L Globulin 3.8 Albumin/Globulin Ratio 0.8 L Vancomycin Trough 8.8 Assessment & Plan - Assessment and Plan (Free Text) Assessment: 81 year old male with bilateral lower extremity ulcerations Plan: Patient seen and evaluated, d/w attending Dr. Conner Patients leg wounds cleansed with peroxide and sterile saline, dressed with xeroform, DSD Wound culture pending Continue IV abx per ID Podiatry will continue to follow
--- NOTE | 2016-08-28 12:49 | CP.PCM.PN ---
Subjective - Date & Time of Evaluation Date of Evaluation: 08/28/16 Time of Evaluation: 08:00 - Subjective Subjective: cultures thus far neg seen by podiatry and vascular iv rx in progress tolerating well has severe infection both feet L>R Objective - Vital Signs/Intake and Output Vital Signs (last 24 hours): Temp Pulse Resp BP Pulse Ox 98.1 F 76 20 152/75 H 97 08/28/16 01:12 08/28/16 06:00 08/28/16 06:00 08/28/16 09:23 08/28/16 01:12 Intake and Output: 08/28/16 08/28/16 06:59 18:59 Intake Total 2350 1300 Output Total 2000 Balance 350 1300 - Medications Medications: Current Medications Aspirin (Aspirin Chewable) 81 mg PO DAILY [facility] Last Admin: 08/28/16 09:16 Dose: 81 mg Clopidogrel Bisulfate (Plavix) 75 mg PO DAILY [facility] Last Admin: 08/28/16 09:16 Dose: 75 mg Enoxaparin Sodium (Lovenox) 40 mg SC DAILY [facility] Last Admin: 08/28/16 09:25 Dose: 40 mg Famotidine (Pepcid) 20 mg PO DAILY [facility] Last Admin: 08/28/16 09:16 Dose: 20 mg Sodium Chloride (Sodium Chloride 0.9%) 1,000 mls @ 100 mls/hr IV .Q10H [facility] Last Admin: 08/28/16 09:26 Dose: 100 mls/hr Piperacillin Sod/Tazobactam (Sod 3.375 gm/ Sodium Chloride) 100 mls @ 200 mls/ hr IVPB Q6H [facility] Last Admin: 08/28/16 09:23 Dose: 200 mls/hr Vancomycin HCl 750 mg/ Sodium (Chloride) 250 mls @ 166.6 mls/hr IVPB Q12H [facility] Last Admin: 08/28/16 09:29 Dose: 166.6 mls/hr Metoprolol Tartrate (Lopressor) 25 mg PO BID [facility] Last Admin: 08/28/16 09:23 Dose: 25 mg Oxycodone/Acetaminophen (Percocet 5/325 Mg Tab) 1 tab PO Q4 PRN PRN Reason: Pain, moderate (4-7) Stop: 08/28/16 23:08 Last Admin: 08/28/16 09:22 Dose: 1 tab Silver Sulfadiazine (Silvadene 1% 20 Gm) 1 ea TOP DAILY [facility] Last Admin: 08/27/16 10:00 Dose: 1 applic - Labs Labs: 08/28/16 07:13 08/28/16 07:13 - Constitutional Appears: Non-toxic, Chronically Ill - Head Exam Head Exam: NORMOCEPHALIC - Eye Exam Eye Exam: PERRL - ENT Exam ENT Exam: Mucous Membranes Dry - Neck Exam Neck Exam: absent: Lymphadenopathy - Respiratory Exam Respiratory Exam: Decreased Breath Sounds, Rhonchi - Cardiovascular Exam Cardiovascular Exam: REGULAR RHYTHM, +S1, +S2 - GI/Abdominal Exam GI & Abdominal Exam: Distended, Soft - Rectal Exam Rectal Exam: Deferred - Exam Exam: NORMAL INSPECTION - Extremities Exam Extremities Exam: absent: Calf Tenderness, Pedal Edema - Back Exam Back Exam: absent: CVA tenderness (L), CVA tenderness (R) Assessment and Plan (1) Cellulitis Status: Acute (2) Ischemic ulcer of ankle Status: Acute (3) Swollen leg Status: Acute (4) CAD (coronary artery disease) Status: Acute (5) HTN (hypertension) Status: Acute (6) Heart valve replaced Status: Acute (7) History of DVT (deep vein thrombosis) Status: Acute - Assessment and Plan (Free Text) Assessment: vanco levels are ok
[2016-08-28] MEDS: Silver Sulfadiazine 1% Cream (20 gm) TOP SCH (13:14)
--- NOTE | 2016-08-28 14:37 | CP.PCM.PN ---
Subjective - Date & Time of Evaluation Date of Evaluation: 08/28/16 Time of Evaluation: 14:32 - Subjective Subjective: Surgery: Dr. Velasquez Pt seen and examined. Resting comfortably in bed. No complaints at this time. Objective - Vital Signs/Intake and Output Vital Signs (last 24 hours): Temp Pulse Resp BP Pulse Ox 98.1 F 76 20 152/75 H 97 08/28/16 01:12 08/28/16 06:00 08/28/16 06:00 08/28/16 09:23 08/28/16 01:12 Intake and Output: 08/28/16 08/28/16 06:59 18:59 Intake Total 2350 1300 Output Total 2000 Balance 350 1300 - Medications Medications: Current Medications Aspirin (Aspirin Chewable) 81 mg PO DAILY [facility] Last Admin: 08/28/16 09:16 Dose: 81 mg Clopidogrel Bisulfate (Plavix) 75 mg PO DAILY [facility] Last Admin: 08/28/16 09:16 Dose: 75 mg Enoxaparin Sodium (Lovenox) 40 mg SC DAILY [facility] Last Admin: 08/28/16 09:25 Dose: 40 mg Famotidine (Pepcid) 20 mg PO DAILY [facility] Last Admin: 08/28/16 09:16 Dose: 20 mg Sodium Chloride (Sodium Chloride 0.9%) 1,000 mls @ 100 mls/hr IV .Q10H [facility] Last Admin: 08/28/16 09:26 Dose: 100 mls/hr Piperacillin Sod/Tazobactam (Sod 3.375 gm/ Sodium Chloride) 100 mls @ 200 mls/ hr IVPB Q6H [facility] Last Admin: 08/28/16 13:13 Dose: Not Given Vancomycin HCl 750 mg/ Sodium (Chloride) 250 mls @ 166.6 mls/hr IVPB Q12H [facility] Last Admin: 08/28/16 13:13 Dose: Not Given Metoprolol Tartrate (Lopressor) 25 mg PO BID [facility] Last Admin: 08/28/16 09:23 Dose: 25 mg Oxycodone/Acetaminophen (Percocet 5/325 Mg Tab) 1 tab PO Q4 PRN PRN Reason: Pain, moderate (4-7) Stop: 08/28/16 23:08 Last Admin: 08/28/16 09:22 Dose: 1 tab Silver Sulfadiazine (Silvadene 1% 20 Gm) 1 ea TOP DAILY [facility] Last Admin: 08/28/16 13:14 Dose: Not Given - Labs Labs: 08/28/16 07:13 08/28/16 07:13 - Constitutional Appears: Non-toxic, No Acute Distress - Head Exam Head Exam: ATRAUMATIC, NORMOCEPHALIC - Eye Exam Eye Exam: EOMI - ENT Exam ENT Exam: Mucous Membranes Moist - Neck Exam Neck Exam: Full ROM - Respiratory Exam Respiratory Exam: NORMAL BREATHING PATTERN. absent: Accessory Muscle Use, Respiratory Distress - GI/Abdominal Exam GI & Abdominal Exam: Soft. absent: Tenderness - Extremities Exam Additional comments: B/L LE, dressing in place, C/D/I - Neurological Exam Neurological Exam: Alert, Awake, Oriented x3 Assessment and Plan - Assessment and Plan (Free Text) Assessment: 81M w. PVD B/L LE, s/p stent L SFA, now w. B/L LE cellulitis -For Arterial duplex today, will f/u on results -podiatry managing wounds -c/w abx -d/w attending Zemaitis PGY2
[2016-08-29] MEDS: Piperacillin/Tazobact 3.375 GM in Sodium Chloride 100 ML IVPB SCH ×4 (04:30→23:15)
--- NOTE | 2016-08-29 07:01 | CP.PCM.PN ---
Subjective - Date & Time of Evaluation Date of Evaluation: 08/29/16 Time of Evaluation: 07:05 - Subjective Subjective: Medicine Note- Dr. Verdin's service Patient was seen and examined at bedside. Patient reports that he still pain in both his lower extremities, but it is currently manageable. No events overnight , per nursing. Objective - Vital Signs/Intake and Output Vital Signs (last 24 hours): Temp Pulse Resp BP Pulse Ox 97.5 F L 71 20 152/77 H 98 08/29/16 00:00 08/29/16 00:00 08/29/16 00:00 08/29/16 00:00 08/29/16 00:00 Intake and Output: 08/29/16 08/29/16 06:59 18:59 Intake Total 1950 Output Total 1000 Balance 950 - Medications Medications: Current Medications Aspirin (Aspirin Chewable) 81 mg PO DAILY [facility] Last Admin: 08/28/16 09:16 Dose: 81 mg Clopidogrel Bisulfate (Plavix) 75 mg PO DAILY [facility] Last Admin: 08/28/16 09:16 Dose: 75 mg Enoxaparin Sodium (Lovenox) 40 mg SC DAILY [facility] Last Admin: 08/28/16 09:25 Dose: 40 mg Famotidine (Pepcid) 20 mg PO DAILY [facility] Last Admin: 08/28/16 09:16 Dose: 20 mg Piperacillin Sod/Tazobactam (Sod 3.375 gm/ Sodium Chloride) 100 mls @ 200 mls/ hr IVPB Q6H [facility] Last Admin: 08/29/16 04:30 Dose: 200 mls/hr Vancomycin HCl 750 mg/ Sodium (Chloride) 250 mls @ 166.6 mls/hr IVPB Q12H [facility] Last Admin: 08/29/16 00:00 Dose: 166.6 mls/hr Metoprolol Tartrate (Lopressor) 25 mg PO BID [facility] Last Admin: 08/28/16 18:13 Dose: 25 mg Silver Sulfadiazine (Silvadene 1% 20 Gm) 1 ea TOP DAILY [facility] Last Admin: 08/28/16 13:14 Dose: Not Given - Labs Labs: 08/28/16 07:13 08/28/16 07:13 - Constitutional Appears: Non-toxic, No Acute Distress - Head Exam Head Exam: ATRAUMATIC, NORMAL INSPECTION, NORMOCEPHALIC - Eye Exam Pupil Exam: NORMAL ACCOMODATION, PERRL - ENT Exam ENT Exam: Mucous Membranes Moist - Respiratory Exam Respiratory Exam: Clear to Ausculation Bilateral, NORMAL BREATHING PATTERN. absent: Prolonged Expiratory Phase, Rales, Rhonchi, Wheezes - Cardiovascular Exam Cardiovascular Exam: REGULAR RHYTHM, +S1, +S2 - GI/Abdominal Exam GI & Abdominal Exam: Soft, Normal Bowel Sounds. absent: Tenderness, Diminished Bowel Sounds, Hypoactive Bowel Sounds - Extremities Exam Extremities Exam: Pedal Edema Additional comments: B/L LE, dressing in place, C/D/I - Neurological Exam Neurological Exam: Alert, Awake, Oriented x3 - Psychiatric Exam Psychiatric exam: Normal Affect, Normal Mood - Skin Skin Exam: Dry, Intact, Normal Color, Warm Assessment and Plan - Assessment and Plan (Free Text) Assessment: Cellulitis Assessment & Plan: Afebrile, no leukocytosis ID Dr. Allison consulted. Wound care consulted. Podiatry Dr. Conner consulted. Zosyn 3.375gm IVPB Q6H started on 08/25 Vancomycin 750mg IVPB Q12H started on 08/26 PVD Assessment & Plan: Patient with history of DVTs Vascular Surgery Dr. Velasquez consulted. Continue ASA and Plavix F/U arterial doppler to check stent patency Status: Acute History of Aortic Valve Replacement Assessment & Plan: INR 1.2 on 06/2016 Continue Plavix and ASA Status: Acute CAD (coronary artery disease) Assessment & Plan: Patient on ASA and Plavix at home, continue meds. Status: Acute HTN (hypertension) Assessment & Plan: BP controlled Continue Lopressor 25 mg PO BID Status: Acute Prophylactic measure Assessment & Plan: Pepcid, Plavix All management as per Dr. Verdin.
[2016-08-29 07:56] LABS: BASO # 0.1 K/uL (0.0-0.2); BASO % 1.1 % (0.0-2.0); EOS # 0.5 K/uL (0.0-0.7); EOS % 5.6 % (0.0-4.0); HEMATOCRIT 28.5 % (35.0-51.0); LYMPH # 1.4 K/uL (1.0-4.3); LYMPH % 16.5 % (20.0-40.0); MEAN CELL VOLUME 69.9 fL (80.0-94.0); MEAN CORPUSCULAR HEMOGLOBIN 21.9 pg (27.0-31.0); MEAN CORPUSCULAR HGB CONC 31.3 g/dL (33.0-37.0); MEAN PLATELET VOLUME 9.8 fL (7.2-11.7); MONO # 0.8 K/uL (0.0-0.8); MONO % 9.2 % (0.0-10.0); NRBC % 0.1 % (0.0-2.0); RED CELL DISTRIBUTION WIDTH 19.7 % (11.5-14.5); WHITE BLOOD COUNT 8.2 K/uL (4.8-10.8)
[2016-08-29 07:57] LABS: CHLORIDE 103 mmol/L (98-107)
[2016-08-29 07:58] LABS: SODIUM 138 mmol/L (132-148)
[2016-08-29 08:00] LABS: ALB/GLOB RATIO 0.8 (1.0-2.1); AST/SGOT 49 U/L (17-59); BILIRUBIN,TOTAL 0.6 mg/dL (0.2-1.3); CARBON DIOXIDE 27 mmol/L (22-30); GFR AFRICAN-AMERICAN > 60; TOTAL PROTEIN 7.1 g/dL (6.3-8.3)
[2016-08-29 08:01] LABS: ALKALINE PHOSPHATASE 64 U/L (38-126); ALT/SGPT 54 U/L (21-72); BLOOD UREA NITROGEN 11 mg/dL (9-20); CALCIUM 8.7 mg/dl (8.6-10.4); GLUCOSE,RANDOM 86 mg/dL (75-110)
--- NOTE | 2016-08-29 09:14 | CP.PCM.PN ---
Subjective - Date & Time of Evaluation Date of Evaluation: 08/29/16 Time of Evaluation: 09:00 - Subjective Subjective: pt seen for ulcers of lower legs . Objective - Vital Signs/Intake and Output Vital Signs (last 24 hours): Temp Pulse Resp BP Pulse Ox 97.6 F 88 20 165/78 H 98 08/29/16 07:36 08/29/16 07:36 08/29/16 07:36 08/29/16 07:36 08/29/16 07:36 Intake and Output: 08/29/16 08/29/16 06:59 18:59 Intake Total 1950 980 Output Total 1000 Balance 950 980 - Medications Medications: Current Medications Aspirin (Aspirin Chewable) 81 mg PO DAILY [facility] Last Admin: 08/28/16 09:16 Dose: 81 mg Clopidogrel Bisulfate (Plavix) 75 mg PO DAILY [facility] Last Admin: 08/28/16 09:16 Dose: 75 mg Enoxaparin Sodium (Lovenox) 40 mg SC DAILY [facility] Last Admin: 08/28/16 09:25 Dose: 40 mg Famotidine (Pepcid) 20 mg PO DAILY [facility] Last Admin: 08/28/16 09:16 Dose: 20 mg Piperacillin Sod/Tazobactam (Sod 3.375 gm/ Sodium Chloride) 100 mls @ 200 mls/ hr IVPB Q6H [facility] Last Admin: 08/29/16 04:30 Dose: 200 mls/hr Vancomycin HCl 750 mg/ Sodium (Chloride) 250 mls @ 166.6 mls/hr IVPB Q12H [facility] Last Admin: 08/29/16 00:00 Dose: 166.6 mls/hr Metoprolol Tartrate (Lopressor) 25 mg PO BID [facility] Last Admin: 08/28/16 18:13 Dose: 25 mg Silver Sulfadiazine (Silvadene 1% 20 Gm) 1 ea TOP DAILY [facility] Last Admin: 08/28/16 13:14 Dose: Not Given - Labs Labs: 08/29/16 08:03 08/29/16 04:00 - Extremities Exam Additional comments: O/Stasis ulcers ankles b/l . Serous drainage b/l . DP,Pt non palpable b/l . Assessment and Plan - Assessment and Plan (Free Text) Assessment: A/Infected stasis ulcers b/l Plan: P/apply Xeroform gauze dressing b/l . Eval Dr Velasquez IV antibiotics .
--- NOTE | 2016-08-29 09:53 | CP.PCM.PN ---
Subjective - Date & Time of Evaluation Date of Evaluation: 08/29/16 Time of Evaluation: 09:52 - Subjective Subjective: Patient seen and evaluated, NAD. Bandages c/d/i to bilateral lower extremity. Patient denies n/v/f/c/sob at this time. Objective - Vital Signs/Intake and Output Vital Signs (last 24 hours): Temp Pulse Resp BP Pulse Ox 97.6 F 88 20 165/78 H 98 08/29/16 07:36 08/29/16 07:36 08/29/16 07:36 08/29/16 07:36 08/29/16 07:36 Intake and Output: 08/29/16 08/29/16 06:59 18:59 Intake Total 1950 980 Output Total 1000 Balance 950 980 - Medications Medications: Current Medications Aspirin (Aspirin Chewable) 81 mg PO DAILY [facility] Last Admin: 08/28/16 09:16 Dose: 81 mg Clopidogrel Bisulfate (Plavix) 75 mg PO DAILY [facility] Last Admin: 08/28/16 09:16 Dose: 75 mg Enoxaparin Sodium (Lovenox) 40 mg SC DAILY [facility] Last Admin: 08/28/16 09:25 Dose: 40 mg Famotidine (Pepcid) 20 mg PO DAILY [facility] Last Admin: 08/28/16 09:16 Dose: 20 mg Piperacillin Sod/Tazobactam (Sod 3.375 gm/ Sodium Chloride) 100 mls @ 200 mls/ hr IVPB Q6H [facility] Last Admin: 08/29/16 04:30 Dose: 200 mls/hr Vancomycin HCl 750 mg/ Sodium (Chloride) 250 mls @ 166.6 mls/hr IVPB Q12H [facility] Last Admin: 08/29/16 00:00 Dose: 166.6 mls/hr Metoprolol Tartrate (Lopressor) 25 mg PO BID [facility] Last Admin: 08/28/16 18:13 Dose: 25 mg Silver Sulfadiazine (Silvadene 1% 20 Gm) 1 ea TOP DAILY [facility] Last Admin: 08/28/16 13:14 Dose: Not Given - Labs Labs: 08/29/16 08:03 08/29/16 04:00 - Constitutional Appears: Well, Non-toxic, No Acute Distress - Neurological Exam Neurological Exam: Oriented x3 - Psychiatric Exam Psychiatric exam: Normal Affect, Normal Mood - Additional Findings Additional findings: DERMATOLOGIC: Bilateral anterior leg full thickness ulcerations with fibrotic base, moderate serous drainage present, positive mild malodor, wound edges are intact with mild periwound erythema, no streaking, no purulence, no tracking of the wounds. Remaining skin is intact, with diffuse xerosis bilaterally. VASCULAR: Moderate diffuse edema of bilateral lower extremities is present. There is increased skin temperature bilaterally NEUROLOGIC: Gross sensation intact, motor function intact ORTHOPEDIC: Pain on palpation to bilateral lower extremity wounds Assessment and Plan - Assessment and Plan (Free Text) Assessment: 81 year old male with chronic bilateral leg ulcerations, PVD Plan: Patient seen and evaluated with attending Dr. Conner Patients dressings changed with xeroform, DSD Patient for arterial duplex today, will f/u recs per vascular Wound culture pending Continue abx Podiatry will continue to follow
--- NOTE | 2016-08-29 10:18 | CP.PCM.PN ---
Subjective - Date & Time of Evaluation Date of Evaluation: 08/29/16 Time of Evaluation: 10:15 - Subjective Subjective: Surgery: Dr. Velasquez Patient doing well today. He denies pain in the legs. He states he is keeping legs elevated but upon exam legs are flat on bed. Per nursing no acute events overnight. Objective - Vital Signs/Intake and Output Vital Signs (last 24 hours): Temp Pulse Resp BP Pulse Ox 97.6 F 88 20 165/78 H 98 08/29/16 07:36 08/29/16 07:36 08/29/16 07:36 08/29/16 07:36 08/29/16 07:36 Intake and Output: 08/29/16 08/29/16 06:59 18:59 Intake Total 1950 980 Output Total 1000 Balance 950 980 - Medications Medications: Current Medications Aspirin (Aspirin Chewable) 81 mg PO DAILY [facility] Last Admin: 08/28/16 09:16 Dose: 81 mg Clopidogrel Bisulfate (Plavix) 75 mg PO DAILY [facility] Last Admin: 08/28/16 09:16 Dose: 75 mg Enoxaparin Sodium (Lovenox) 40 mg SC DAILY [facility] Last Admin: 08/28/16 09:25 Dose: 40 mg Famotidine (Pepcid) 20 mg PO DAILY [facility] Last Admin: 08/28/16 09:16 Dose: 20 mg Piperacillin Sod/Tazobactam (Sod 3.375 gm/ Sodium Chloride) 100 mls @ 200 mls/ hr IVPB Q6H [facility] Last Admin: 08/29/16 04:30 Dose: 200 mls/hr Vancomycin HCl 750 mg/ Sodium (Chloride) 250 mls @ 166.6 mls/hr IVPB Q12H [facility] Last Admin: 08/29/16 00:00 Dose: 166.6 mls/hr Metoprolol Tartrate (Lopressor) 25 mg PO BID [facility] Last Admin: 08/28/16 18:13 Dose: 25 mg Silver Sulfadiazine (Silvadene 1% 20 Gm) 1 ea TOP DAILY [facility] Last Admin: 08/28/16 13:14 Dose: Not Given - Labs Labs: 08/29/16 08:03 08/29/16 04:00 - Constitutional Appears: Non-toxic, No Acute Distress - Head Exam Head Exam: ATRAUMATIC, NORMOCEPHALIC - Eye Exam Eye Exam: EOMI, Normal appearance - ENT Exam ENT Exam: Mucous Membranes Moist - Respiratory Exam Respiratory Exam: NORMAL BREATHING PATTERN. absent: Respiratory Distress - Cardiovascular Exam Cardiovascular Exam: REGULAR RHYTHM. absent: Tachycardia Assessment and Plan - Assessment and Plan (Free Text) Assessment: 81 y/o male w/ chronic poor healing bilateral ankle wounds Plan: -f/u arterial duplex study for evaluation of prior placed stents -pending results determines surgical intervention -wound care per podiatry -d/w Dr. Johnny Hendrix PGY1
[2016-08-29] MEDS: Enoxaparin 40 mg Syringe SC SCH (11:05)
[2016-08-29] MEDS: Silver Sulfadiazine 1% Cream (20 gm) TOP SCH (11:05)
--- NOTE | 2016-08-29 12:39 | CP.PCM.PN ---
Subjective - Date & Time of Evaluation Date of Evaluation: 08/29/16 Time of Evaluation: 08:00 - Subjective Subjective: cultures neg thus far on vanco/zosyn vanco level ok podiatry and vascular on board Objective - Vital Signs/Intake and Output Vital Signs (last 24 hours): Temp Pulse Resp BP Pulse Ox 97.6 F 88 20 165/78 H 98 08/29/16 07:36 08/29/16 07:36 08/29/16 07:36 08/29/16 11:04 08/29/16 07:36 Intake and Output: 08/29/16 08/29/16 06:59 18:59 Intake Total 1950 980 Output Total 1000 Balance 950 980 - Medications Medications: Current Medications Acetaminophen (Tylenol 325mg Tab) 650 mg PO Q6 PRN PRN Reason: Pain, moderate (4-7) Last Admin: 08/29/16 11:54 Dose: 650 mg Aspirin (Aspirin Chewable) 81 mg PO DAILY [facility] Last Admin: 08/29/16 11:04 Dose: 81 mg Clopidogrel Bisulfate (Plavix) 75 mg PO DAILY [facility] Last Admin: 08/29/16 11:04 Dose: 75 mg Enoxaparin Sodium (Lovenox) 40 mg SC DAILY [facility] Last Admin: 08/29/16 11:05 Dose: 40 mg Famotidine (Pepcid) 20 mg PO DAILY [facility] Last Admin: 08/29/16 11:05 Dose: 20 mg Piperacillin Sod/Tazobactam (Sod 3.375 gm/ Sodium Chloride) 100 mls @ 200 mls/ hr IVPB Q6H [facility] Last Admin: 08/29/16 11:55 Dose: 200 mls/hr Vancomycin HCl 750 mg/ Sodium (Chloride) 250 mls @ 166.6 mls/hr IVPB Q12H [facility] Last Admin: 08/29/16 11:57 Dose: 166.6 mls/hr Metoprolol Tartrate (Lopressor) 25 mg PO BID [facility] Last Admin: 08/29/16 11:04 Dose: 25 mg Silver Sulfadiazine (Silvadene 1% 20 Gm) 1 ea TOP DAILY [facility] Last Admin: 08/29/16 11:05 Dose: Not Given - Labs Labs: 08/29/16 08:03 08/29/16 04:00 - Constitutional Appears: Non-toxic - Head Exam Head Exam: NORMOCEPHALIC - Eye Exam Eye Exam: absent: Scleral icterus - ENT Exam ENT Exam: Mucous Membranes Dry - Neck Exam Neck Exam: absent: Lymphadenopathy - Respiratory Exam Respiratory Exam: Decreased Breath Sounds, Rhonchi - Cardiovascular Exam Cardiovascular Exam: REGULAR RHYTHM, +S1, +S2, Murmur - GI/Abdominal Exam GI & Abdominal Exam: Distended, Soft - Rectal Exam Rectal Exam: Deferred - Exam Exam: NORMAL INSPECTION - Extremities Exam Extremities Exam: absent: Pedal Edema - Back Exam Back Exam: absent: CVA tenderness (L), CVA tenderness (R) Assessment and Plan (1) Cellulitis Status: Acute (2) Ischemic ulcer of ankle Status: Acute (3) Swollen leg Status: Acute (4) CAD (coronary artery disease) Status: Acute (5) HTN (hypertension) Status: Acute (6) Heart valve replaced Status: Acute (7) History of DVT (deep vein thrombosis) Status: Acute
--- NOTE | 2016-08-29 13:57 | PCM.SURG1 ---
Surgeon's Initial Post Op Note - Surgeon's Notes Surgeon: [email or web address] Manager Club: 0 Type of Anesthesia: IV Sedation Anesthesia Administered By: joshua Pre-Operative Diagnosis: ischemic ulcer left 3rd toe Operative Findings: severe distal tibial disease Post-Operative Diagnosis: same Operation Performed: aortofemoral angiogram via right groin with selective catherization left femoral artery. perclose right Specimen/Specimens Removed: 0 Estimated Blood Loss: EBL {In ML}: 15 Blood Products Given: N/A Drains Used: No Drains Post-Op Condition: Good Date of Surgery/Procedure: 08/29/16 Time of Surgery/Procedure: 13:59
--- NOTE | 2016-08-29 14:01 | CP.PCM.PN ---
Subjective - Date & Time of Evaluation Date of Evaluation: 08/29/16 Time of Evaluation: 14:00 - Subjective Subjective: PREVIOUS NOTE IN ERROR NO INTERVENTION Objective - Vital Signs/Intake and Output Vital Signs (last 24 hours): Temp Pulse Resp BP Pulse Ox 97.6 F 88 20 165/78 H 98 08/29/16 07:36 08/29/16 07:36 08/29/16 07:36 08/29/16 11:04 08/29/16 07:36 Intake and Output: 08/29/16 08/29/16 06:59 18:59 Intake Total 1950 980 Output Total 1000 Balance 950 980 - Medications Medications: Current Medications Acetaminophen (Tylenol 325mg Tab) 650 mg PO Q6 PRN PRN Reason: Pain, moderate (4-7) Last Admin: 08/29/16 11:54 Dose: 650 mg Aspirin (Aspirin Chewable) 81 mg PO DAILY [facility] Last Admin: 08/29/16 11:04 Dose: 81 mg Clopidogrel Bisulfate (Plavix) 75 mg PO DAILY [facility] Last Admin: 08/29/16 11:04 Dose: 75 mg Enoxaparin Sodium (Lovenox) 40 mg SC DAILY [facility] Last Admin: 08/29/16 11:05 Dose: 40 mg Famotidine (Pepcid) 20 mg PO DAILY [facility] Last Admin: 08/29/16 11:05 Dose: 20 mg Piperacillin Sod/Tazobactam (Sod 3.375 gm/ Sodium Chloride) 100 mls @ 200 mls/ hr IVPB Q6H [facility] Last Admin: 08/29/16 11:55 Dose: 200 mls/hr Vancomycin HCl 750 mg/ Sodium (Chloride) 250 mls @ 166.6 mls/hr IVPB Q12H [facility] Last Admin: 08/29/16 11:57 Dose: 166.6 mls/hr Metoprolol Tartrate (Lopressor) 25 mg PO BID [facility] Last Admin: 08/29/16 11:04 Dose: 25 mg Silver Sulfadiazine (Silvadene 1% 20 Gm) 1 ea TOP DAILY [facility] Last Admin: 08/29/16 11:05 Dose: Not Given - Labs Labs: 08/29/16 08:03 08/29/16 04:00
--- NOTE | 2016-08-29 16:15 | VASCLAB ---
PROCEDURE: HISTORY: PVD, previous SFA stent. COMPARISON: None available. TECHNIQUE: Grayscale and duplex Doppler evaluation of the bilateral common femoral, femoral, profunda femoral, popliteal, posterior tibial, anterior tibial and dorsalis pedis arteries was performed. Report prepared by Dennis Sarmiento, BS, RVT FINDINGS: RIGHT LOWER EXTREMITY: * Common Femoral Artery: Peak Systolic Velocity - 172: Doppler Waveform: Biphasic: Plaque description - Calcific * Profunda Femoral Artery: Peak Systolic Velocity - 161: Doppler Waveform: Biphasic.: Plaque description - Calcific * Femoral Artery o Proximal Segment: Peak Systolic Velocity - 153: Doppler Waveform: Biphasic: Plaque description - Calcific o Middle Segment: Peak Systolic Velocity - 126: Doppler Waveform: Biphasic: Plaque description - Calcific o Distal Segment: Peak Systolic Velocity - 258: Doppler Waveform: Biphasic: Plaque description - Calcific * Popliteal Artery o Proximal Segment: Peak Systolic Velocity - 285: Doppler Waveform: Biphasic: Plaque description - Calcific o Middle Segment: Peak Systolic Velocity - 95: Doppler Waveform: Biphasic: Plaque description - Calcific o Distal Segment: Peak Systolic Velocity - 101: Doppler Waveform: Biphasic: Plaque description - Calcific * Posterior Tibial Artery: Peak Systolic Velocity - 72: Doppler Waveform: Monophasic: Plaque description - Calcific * Anterior Tibial Artery: Peak Systolic Velocity - 0: Doppler Waveform: Absent: Plaque description - Calcific * Dorsalis Pedis Artery: Peak Systolic Velocity - : Doppler Waveform: : Plaque description - LEFT LOWER EXTREMITY: * Common Femoral Artery: Peak Systolic Velocity - 201: Doppler Waveform: Biphasic: Plaque description - Calcific * Profunda Femoral Artery: Peak Systolic Velocity - 148: Doppler Waveform: Biphasic: Plaque description - Calcific * Femoral Artery o Proximal Segment: Peak Systolic Velocity - 282: Doppler Waveform: Biphasic: Plaque description - Calcific o Middle Segment: Peak Systolic Velocity - 154: Doppler Waveform: Biphasic: Plaque description - Calcific o Distal Segment: Peak Systolic Velocity - 119: Doppler Waveform: Biphasic: Plaque description - Calcific * Popliteal Artery o Proximal Segment: Peak Systolic Velocity - 139: Doppler Waveform: Biphasic: Plaque description - Calcific o Middle Segment: Peak Systolic Velocity - 109: Doppler Waveform: Biphasic: Plaque description - Calcific o Distal Segment: Peak Systolic Velocity - 117: Doppler Waveform: Biphasic: Plaque description - Calcific * Posterior Tibial Artery: Peak Systolic Velocity - 84: Doppler Waveform: Biphasic: Plaque description - Calcific * Anterior Tibial Artery: Peak Systolic Velocity - 0: Doppler Waveform: Absent: Plaque description - Calcific * Dorsalis Pedis Artery: Peak Systolic Velocity - : Doppler Waveform: : Plaque description - OTHER FINDINGS: None. IMPRESSION: RIGHT: Possible occlusion of the right mid to distal anterior tibial artery. 50-75% stenosis of the right distal superficial femoral and proximal popliteal arteries. 30-49% stenosis of the right common femoral and proximal profunda femoral arteries. LEFT: Possible occlusion of the left mid to distal anterior tibial artery. 50-75% stenosis of the left common femoral and proximal superficial femoral arteries.
--- NOTE | 2016-08-29 19:50 | CT ---
EXAM: CT Angiography Abdomen and Pelvis With Runoff to the Lower Extremities With Intravenous Contrast CLINICAL HISTORY: 81 years old, male; Condition or disease; Peripheral vascular disease and other: Lower extremities cellulitis; Additional info: In stent stenosis TECHNIQUE: Axial computed tomographic angiography images of the abdomen, pelvis and lower extremities with intravenous contrast using CT angiography protocol. This CT exam was performed using one or more of the following dose reduction techniques: automated exposure control, adjustment of the mA and/or kV according to patient size, and/or use of iterative reconstruction technique. 3D and MIP reconstructed images were created and reviewed. Coronal and sagittal reformatted images were created and reviewed. CONTRAST: 150 mL of [id number] administered intravenously. EXAM DATE/TIME: Exam ordered 08/29/2016 1:49 PM COMPARISON: CT - ANGIOGRAPHY ABD ILEOFE 01/28/2016 6:12:50 PM FINDINGS: Lower thorax: Pleural-based calcifications are noted at the right lung base The VASCULATURE: On the runoff portion of the examination there is significant venous contamination. Aorta: There is mild aneurysmal dilatation of the distal abdominal aorta with a maximum diameter of 2.8 cm.. No dissection. Celiac trunk and mesenteric arteries: No acute findings. No occlusion or significant stenosis. Renal arteries: There is a 40% % stenosis of the right main renal artery. 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 No occlusion or significant stenosis. Right femoral/popliteal arteries: On the right and tandem stents in the mid SFA are patent. There is a 50-60% stenosis of the right popliteal artery On the left, tandem stents in the mid and distal SFA are patent. Atherosclerotic disease is noted in the lower sioux vessels proximal and distal to the stents bilaterally. Right calf/foot arteries: There is diffuse atherosclerotic change with 1 vessel runoff to the foot via posterior tibial artery... Left iliac arteries: See right iliac artery Left femoral/popliteal arteries: No acute findings. No occlusion or significant stenosis. Left calf/foot arteries: There is diffuse atherosclerotic change with 1 vessel runoff to the foot via posterior tibial arteries. There is intermittent reconstitution of the anterior tibial artery in the lower leg and in the foot. ABDOMEN: Liver: Unremarkable. No mass. Gallbladder and bile ducts: Surgical clips are seen in the gallbladder fossa. The gallbladder is absent. No ductal dilation. Pancreas: Unremarkable. No ductal dilation. No mass. Spleen: Unremarkable. No splenomegaly. Adrenals: Unremarkable. No mass. Kidneys and ureters: There is a 3.8 cm low-density lesion in the lower pole the right kidney with a density measurement of 18 H. a second 1.3 cm lesion is noted in the midportion kidney anteriorly with a density reading of 17 H. A subcentimeter low density lesion is seen in the upper pole the left kidney. Too small to characterize fully. Unremarkable. No hydronephrosis. No solid mass. Stomach and bowel: Unremarkable. No obstruction. No mucosal thickening. Appendix: No findings to suggest acute appendicitis. PELVIS: Bladder: Unremarkable. No mass. Reproductive: Unremarkable as visualized. ABDOMEN, PELVIS and LOWER EXTREMITIES: Intraperitoneal space: Unremarkable. No significant fluid collection. No free air. Bones/joints: No acute fracture. No dislocation. Soft tissues: Gas is noted within the soft tissues of the subcutaneous fat of the left anterior abdominal wall. No inflammatory changes are seen. This could be related to injections Lymph nodes: Unremarkable. No enlarged lymph nodes. IMPRESSION: 1. Patent SFA stents bilaterally 2. Generalized atherosclerotic disease of the superficial femoral artery and popliteal bilaterally with 50-60% stenosis of the right popliteal artery. 3. The runoff is significantly limited by venous contamination. There appears to be 1 vessel runoff to the right foot via posterior tibial artery. There is one vessel runoff to the left foot via posterior tibial artery with intermittent reconstitution of the anterior tibial artery in the lower leg and foot. 4. There is mild aneurysmal dilatation of the distal abdominal aorta with a maximum diameter 2.8 cm. 5. Aneurysmal dilatation of common iliac arteries with maximum diameter of 1.6 and 1.4 cm of the left and right respectively 6. Right renal cyst. Subcentimeter low-density lesion in the left too small to characterize fully
[2016-08-30] MEDS: Piperacillin/Tazobact 3.375 GM in Sodium Chloride 100 ML IVPB SCH ×4 (05:06→22:20)
--- NOTE | 2016-08-30 07:12 | CP.PCM.PN ---
Subjective - Date & Time of Evaluation Date of Evaluation: 08/30/16 Time of Evaluation: 09:00 - Subjective Subjective: PGY2 on medicine Dr. Edwards service: Pt seen and examined at bedside this morning.Pt said his groin pain improved and tolerated with pain medicine. No other complaints at this time. Objective - Vital Signs/Intake and Output Vital Signs (last 24 hours): Temp Pulse Resp BP Pulse Ox 98.3 F 64 20 158/74 H 99 08/30/16 02:46 08/30/16 02:46 08/30/16 02:46 08/30/16 02:46 08/30/16 02:46 Intake and Output: 08/30/16 08/30/16 06:59 18:59 Intake Total 800 Balance 800 - Medications Medications: Current Medications Acetaminophen (Tylenol 325mg Tab) 650 mg PO Q6 PRN PRN Reason: Pain, moderate (4-7) Last Admin: 08/29/16 11:54 Dose: 650 mg Aspirin (Aspirin Chewable) 81 mg PO DAILY [facility] Last Admin: 08/29/16 11:04 Dose: 81 mg Clopidogrel Bisulfate (Plavix) 75 mg PO DAILY [facility] Last Admin: 08/29/16 11:04 Dose: 75 mg Enoxaparin Sodium (Lovenox) 40 mg SC DAILY [facility] Last Admin: 08/29/16 11:05 Dose: 40 mg Famotidine (Pepcid) 20 mg PO DAILY [facility] Last Admin: 08/29/16 11:05 Dose: 20 mg Piperacillin Sod/Tazobactam (Sod 3.375 gm/ Sodium Chloride) 100 mls @ 200 mls/ hr IVPB Q6H [facility] Last Admin: 08/30/16 05:06 Dose: 200 mls/hr Vancomycin HCl 750 mg/ Sodium (Chloride) 250 mls @ 166.6 mls/hr IVPB Q12H [facility] Last Admin: 08/29/16 23:49 Dose: 166.6 mls/hr Metoprolol Tartrate (Lopressor) 25 mg PO BID [facility] Last Admin: 08/29/16 18:15 Dose: 25 mg Silver Sulfadiazine (Silvadene 1% 20 Gm) 1 ea TOP DAILY [facility] Last Admin: 08/29/16 11:05 Dose: Not Given - Labs Labs: 08/29/16 08:03 08/29/16 04:00 - Constitutional Appears: Non-toxic, No Acute Distress - Head Exam Head Exam: NORMOCEPHALIC - Eye Exam Eye Exam: Normal appearance Pupil Exam: NORMAL ACCOMODATION - ENT Exam ENT Exam: Mucous Membranes Moist - Respiratory Exam Respiratory Exam: Clear to Ausculation Bilateral, NORMAL BREATHING PATTERN. absent: Rhonchi, Wheezes - Cardiovascular Exam Cardiovascular Exam: REGULAR RHYTHM, +S1, +S2. absent: Gallop, Rubs - GI/Abdominal Exam GI & Abdominal Exam: Soft, Normal Bowel Sounds. absent: Tenderness - Extremities Exam Additional comments: BLE dressing C/D/I - Neurological Exam Neurological Exam: Alert, Awake, Oriented x3 - Psychiatric Exam Psychiatric exam: Normal Mood - Skin Skin Exam: Dry, Intact Assessment and Plan - Assessment and Plan (Free Text) Assessment: Cellulitis Assessment & Plan: Afebrile, no leukocytosis ID Dr. Allison consulted. Wound care consulted. Podiatry Dr. Conner consulted. Zosyn 3.375gm IVPB Q6H started on 08/25 Vancomycin 750mg IVPB Q12H started on 08/26 F/U wound culture. PVD Assessment & Plan: Patient with history of DVTs Vascular Surgery Dr. Velasquez consulted. Continue ASA and Plavix Arterial doppler showed possible occlusion of right mid to distal anterior tibial artery, 50-75% stenosis of right distal superficial femoral and proximal popliteal arteries and 30-49% stenosis of the right common femoral and proximal profunda femoral arteries. Possible occlusion of left mid to distal anterior tibial artery and 50-75% stenosis of left common femoral and proximal superifical femoral arteries. CT angio showed SFA stent patent. 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 Status: Acute History of Aortic Valve Replacement Assessment & Plan: INR 1.2 on 06/2016 Continue Plavix and ASA Status: Acute CAD (coronary artery disease) Assessment & Plan: Patient on ASA and Plavix at home, continue meds. Status: Acute HTN (hypertension) Assessment & Plan: BP controlled Continue Lopressor 25 mg PO BID Status: Acute Prophylactic measure Assessment & Plan: Pepcid, Plavix All management as per Dr. Verdin.
[2016-08-30 07:44] LABS: BASO # 0.1 K/uL (0.0-0.2); BASO % 1.2 % (0.0-2.0); EOS # 0.4 K/uL (0.0-0.7); EOS % 5.1 % (0.0-4.0); HEMATOCRIT 29.5 % (35.0-51.0); LYMPH # 1.4 K/uL (1.0-4.3); LYMPH % 17.5 % (20.0-40.0); MEAN CELL VOLUME 70.3 fL (80.0-94.0); MEAN CORPUSCULAR HEMOGLOBIN 21.7 pg (27.0-31.0); MEAN CORPUSCULAR HGB CONC 30.9 g/dL (33.0-37.0); MEAN PLATELET VOLUME 9.5 fL (7.2-11.7); MONO # 0.8 K/uL (0.0-0.8); MONO % 9.6 % (0.0-10.0); RED CELL DISTRIBUTION WIDTH 19.4 % (11.5-14.5); WHITE BLOOD COUNT 8.2 K/uL (4.8-10.8)
[2016-08-30 08:09] LABS: CHLORIDE 104 mmol/L (98-107)
[2016-08-30 08:10] LABS: SODIUM 138 mmol/L (132-148)
[2016-08-30 08:12] LABS: ALB/GLOB RATIO 0.9 (1.0-2.1); ALKALINE PHOSPHATASE 57 U/L (38-126); ALT/SGPT 58 U/L (21-72); AST/SGOT 41 U/L (17-59); BILIRUBIN,TOTAL 0.5 mg/dL (0.2-1.3); BLOOD UREA NITROGEN 11 mg/dL (9-20); CARBON DIOXIDE 26 mmol/L (22-30); GFR AFRICAN-AMERICAN > 60; TOTAL PROTEIN 6.9 g/dL (6.3-8.3)
[2016-08-30 08:13] LABS: CALCIUM 8.3 mg/dl (8.6-10.4); GLUCOSE,RANDOM 81 mg/dL (75-110)
--- NOTE | 2016-08-30 09:39 | CP.PCM.PN ---
Subjective - Date & Time of Evaluation Date of Evaluation: 08/30/16 Time of Evaluation: 09:15 - Subjective Subjective: 81 y/o male patient was seen and evaluated at bedside this morning for follow- up on bilateral lower extremity wounds. Patient was resting comfortably, in NAD. He states that he experiences minimal pain in the region of his wounds bilaterally, but denies any other pedal complaints at this time. Dressings appear to be C/D/I bilaterally. He denies any F/C/N/V/SOB/CP. Objective - Vital Signs/Intake and Output Vital Signs (last 24 hours): Temp Pulse Resp BP Pulse Ox 98.1 F 85 18 170/75 H 98 08/30/16 08:00 08/30/16 08:00 08/30/16 08:00 08/30/16 08:00 08/30/16 08:00 Intake and Output: 08/30/16 08/30/16 06:59 18:59 Intake Total 800 Balance 800 - Medications Medications: Current Medications Acetaminophen (Tylenol 325mg Tab) 650 mg PO Q6 PRN PRN Reason: Pain, moderate (4-7) Last Admin: 08/29/16 11:54 Dose: 650 mg Aspirin (Aspirin Chewable) 81 mg PO DAILY [facility] Last Admin: 08/29/16 11:04 Dose: 81 mg Clopidogrel Bisulfate (Plavix) 75 mg PO DAILY [facility] Last Admin: 08/29/16 11:04 Dose: 75 mg Enoxaparin Sodium (Lovenox) 40 mg SC DAILY [facility] Last Admin: 08/29/16 11:05 Dose: 40 mg Famotidine (Pepcid) 20 mg PO DAILY [facility] Last Admin: 08/29/16 11:05 Dose: 20 mg Piperacillin Sod/Tazobactam (Sod 3.375 gm/ Sodium Chloride) 100 mls @ 200 mls/ hr IVPB Q6H [facility] Last Admin: 08/30/16 05:06 Dose: 200 mls/hr Vancomycin HCl 750 mg/ Sodium (Chloride) 250 mls @ 166.6 mls/hr IVPB Q12H [facility] Last Admin: 08/29/16 23:49 Dose: 166.6 mls/hr Metoprolol Tartrate (Lopressor) 25 mg PO BID [facility] Last Admin: 08/29/16 18:15 Dose: 25 mg Silver Sulfadiazine (Silvadene 1% 20 Gm) 1 ea TOP DAILY [facility] Last Admin: 08/29/16 11:05 Dose: Not Given - Labs Labs: 08/30/16 07:31 08/30/16 07:31 - Constitutional Appears: Non-toxic, No Acute Distress - Neurological Exam Neurological Exam: Alert, Awake, Oriented x3 - Psychiatric Exam Psychiatric exam: Normal Affect, Normal Mood - Skin Skin Exam: Warm. absent: Erythema - Additional Findings Additional findings: Bilateral lower extremity examination: DERMATOLOGIC: Bilateral anterior leg full thickness ulcerations with fibrotic base, moderate serous drainage present, positive mild malodor, wound edges are intact with mild periwound erythema, no streaking, no purulence, no tracking of the wounds. Remaining skin is intact, with diffuse xerosis bilaterally. VASCULAR: Moderate diffuse edema of bilateral lower extremities is present. There is increased skin temperature bilaterally NEUROLOGIC: Gross sensation intact, motor function intact ORTHOPEDIC: Pain on palpation to bilateral lower extremity wounds Assessment and Plan - Assessment and Plan (Free Text) Assessment: 81 y/o M with PVD and bilateral chronic stasis ulcerations of the legs Plan: Patient seen and evaluated at bedside Labs and vitals reviewed Bilateral lower extremity dressings were changed with Xeroform DSD CT angio reveals generalized atherosclerosis of the SFA and popliteal a. bilaterally with 50-60% stenosis of the Right popliteal artery Patient to continue receiving IV abx, as per ID recommendations Discussed patient with attending, Dr. Conner Podiatry to follow while patient remains in house
[2016-08-30] MEDS: Enoxaparin 40 mg Syringe SC SCH (10:53)
[2016-08-30] MEDS: Silver Sulfadiazine 1% Cream (20 gm) TOP SCH (10:54)
--- NOTE | 2016-08-30 14:10 | CP.PCM.PN ---
Subjective - Date & Time of Evaluation Date of Evaluation: 08/30/16 Time of Evaluation: 14:06 - Subjective Subjective: Surgery: Dr. Velasquez Patient doing well today. Denies any complaints at this time. Patient denies f/c /n/v. He reports keeping his feet elevated. He states the swelling has significantly improved. Objective - Vital Signs/Intake and Output Vital Signs (last 24 hours): Temp Pulse Resp BP Pulse Ox 98.1 F 85 18 170/75 H 98 08/30/16 08:00 08/30/16 08:00 08/30/16 08:00 08/30/16 10:52 08/30/16 08:00 Intake and Output: 08/30/16 08/30/16 06:59 18:59 Intake Total 800 Balance 800 - Medications Medications: Current Medications Acetaminophen (Tylenol 325mg Tab) 650 mg PO Q6 PRN PRN Reason: Pain, moderate (4-7) Last Admin: 08/30/16 10:58 Dose: 650 mg Aspirin (Aspirin Chewable) 81 mg PO DAILY [facility] Last Admin: 08/30/16 10:52 Dose: 81 mg Clopidogrel Bisulfate (Plavix) 75 mg PO DAILY [facility] Last Admin: 08/30/16 10:52 Dose: 75 mg Enoxaparin Sodium (Lovenox) 40 mg SC DAILY [facility] Last Admin: 08/30/16 10:53 Dose: 40 mg Famotidine (Pepcid) 20 mg PO DAILY [facility] Last Admin: 08/30/16 10:52 Dose: 20 mg Piperacillin Sod/Tazobactam (Sod 3.375 gm/ Sodium Chloride) 100 mls @ 200 mls/ hr IVPB Q6H [facility] Last Admin: 08/30/16 10:53 Dose: 200 mls/hr Vancomycin HCl 750 mg/ Sodium (Chloride) 250 mls @ 166.6 mls/hr IVPB Q12H [facility] Last Admin: 08/30/16 10:55 Dose: 166.6 mls/hr Metoprolol Tartrate (Lopressor) 25 mg PO BID [facility] Last Admin: 08/30/16 10:52 Dose: 25 mg Silver Sulfadiazine (Silvadene 1% 20 Gm) 1 ea TOP DAILY [facility] Last Admin: 08/30/16 10:54 Dose: Not Given - Labs Labs: 08/30/16 07:31 08/30/16 07:31 - Constitutional Appears: Non-toxic, No Acute Distress - Head Exam Head Exam: ATRAUMATIC, NORMOCEPHALIC - Eye Exam Eye Exam: EOMI, Normal appearance - ENT Exam ENT Exam: Mucous Membranes Moist - Respiratory Exam Respiratory Exam: NORMAL BREATHING PATTERN. absent: Respiratory Distress - Cardiovascular Exam Cardiovascular Exam: REGULAR RHYTHM. absent: Tachycardia - Extremities Exam Additional comments: ankle wounds dressing CDI - Neurological Exam Neurological Exam: Alert, Awake - Psychiatric Exam Psychiatric exam: Normal Affect, Normal Mood Assessment and Plan - Assessment and Plan (Free Text) Assessment: 81 y/o male w/ PVD and poorly healing ankle wounds Plan: -will review imaging -stents are patent -Ct shows some stenosis at the right pop -cont current management at this time -will discuss further surgical intervention w/ Dr. Ron Hendrix PGY1
[2016-08-30 16:12] VITALS: RESP 20
--- NOTE | 2016-08-30 17:29 | CP.PCM.PN ---
Subjective - Date & Time of Evaluation Date of Evaluation: 08/30/16 Time of Evaluation: 08:00 - Subjective Subjective: Bilateral lower extremity ulcers inspected CT angio reveals generalized atherosclerosis of the SFA and popliteal a. bilaterally with 50-60% stenosis of the Right popliteal artery Patient to continue receiving IV abx, Objective - Vital Signs/Intake and Output Vital Signs (last 24 hours): Temp Pulse Resp BP Pulse Ox 98 F 68 20 145/72 98 08/30/16 16:00 08/30/16 16:00 08/30/16 16:00 08/30/16 16:00 08/30/16 16:00 Intake and Output: 08/30/16 08/30/16 06:59 18:59 Intake Total 800 850 Balance 800 850 - Medications Medications: Current Medications Acetaminophen (Tylenol 325mg Tab) 650 mg PO Q6 PRN PRN Reason: Pain, moderate (4-7) Last Admin: 08/30/16 10:58 Dose: 650 mg Aspirin (Aspirin Chewable) 81 mg PO DAILY [facility] Last Admin: 08/30/16 10:52 Dose: 81 mg Clopidogrel Bisulfate (Plavix) 75 mg PO DAILY [facility] Last Admin: 08/30/16 10:52 Dose: 75 mg Enoxaparin Sodium (Lovenox) 40 mg SC DAILY [facility] Last Admin: 08/30/16 10:53 Dose: 40 mg Famotidine (Pepcid) 20 mg PO DAILY [facility] Last Admin: 08/30/16 10:52 Dose: 20 mg Piperacillin Sod/Tazobactam (Sod 3.375 gm/ Sodium Chloride) 100 mls @ 200 mls/ hr IVPB Q6H [facility] Last Admin: 08/30/16 16:26 Dose: 200 mls/hr Vancomycin HCl 750 mg/ Sodium (Chloride) 250 mls @ 166.6 mls/hr IVPB Q12H [facility] Last Admin: 08/30/16 14:28 Dose: Not Given Metoprolol Tartrate (Lopressor) 25 mg PO BID [facility] Last Admin: 08/30/16 10:52 Dose: 25 mg Silver Sulfadiazine (Silvadene 1% 20 Gm) 1 ea TOP DAILY [facility] Last Admin: 08/30/16 10:54 Dose: Not Given - Labs Labs: 08/30/16 07:31 08/30/16 07:31 - Constitutional Appears: Non-toxic, Chronically Ill - Head Exam Head Exam: NORMOCEPHALIC - Eye Exam Eye Exam: PERRL. absent: Scleral icterus - ENT Exam ENT Exam: Mucous Membranes Dry - Neck Exam Neck Exam: absent: Lymphadenopathy - Respiratory Exam Respiratory Exam: Decreased Breath Sounds - Cardiovascular Exam Cardiovascular Exam: REGULAR RHYTHM, +S1, +S2, Murmur - GI/Abdominal Exam GI & Abdominal Exam: Distended, Soft Assessment and Plan (1) Cellulitis Status: Acute (2) Ischemic ulcer of ankle Status: Acute (3) Swollen leg Status: Acute (4) CAD (coronary artery disease) Status: Acute (5) HTN (hypertension) Status: Acute (6) Heart valve replaced Status: Acute (7) History of DVT (deep vein thrombosis) Status: Acute - Assessment and Plan (Free Text) Assessment: cont rx check vanco level
[2016-08-31] MEDS: Piperacillin/Tazobact 3.375 GM in Sodium Chloride 100 ML IVPB SCH ×2 (04:15→23:15)
[2016-08-31 07:47] LABS: CHLORIDE 105 mmol/L (98-107); SODIUM 141 mmol/L (132-148)
[2016-08-31 07:49] LABS: GFR AFRICAN-AMERICAN > 60
[2016-08-31 07:50] LABS: ALB/GLOB RATIO 0.8 (1.0-2.1); ALKALINE PHOSPHATASE 63 U/L (38-126); ALT/SGPT 47 U/L (21-72); AST/SGOT 42 U/L (17-59); BILIRUBIN,TOTAL 0.5 mg/dL (0.2-1.3); BLOOD UREA NITROGEN 11 mg/dL (9-20); CALCIUM 8.9 mg/dl (8.6-10.4); CARBON DIOXIDE 24 mmol/L (22-30); GLUCOSE,RANDOM 87 mg/dL (75-110); TOTAL PROTEIN 7.1 g/dL (6.3-8.3)
[2016-08-31 08:09] LABS: BASO # 0.1 K/uL (0.0-0.2); BASO % 1.4 % (0.0-2.0); EOS # 0.5 K/uL (0.0-0.7); HEMATOCRIT 29.5 % (35.0-51.0); LYMPH # 1.8 K/uL (1.0-4.3); LYMPH % 20.2 % (20.0-40.0); MEAN CELL VOLUME 70.3 fL (80.0-94.0); MEAN CORPUSCULAR HEMOGLOBIN 21.8 pg (27.0-31.0); MEAN PLATELET VOLUME 9.6 fL (7.2-11.7); MONO # 0.8 K/uL (0.0-0.8); MONO % 9.1 % (0.0-10.0); NRBC % 0.1 % (0.0-2.0); RED CELL DISTRIBUTION WIDTH 19.9 % (11.5-14.5); WHITE BLOOD COUNT 8.8 K/uL (4.8-10.8)
--- NOTE | 2016-08-31 19:30 | RAD ---
PROCEDURE: Date of procedure: 08/31/2016 Procedure: 1. Placement of a right arm PICC with ultrasound and fluoroscopic guidance, CPT 21559 2. PICC tip confirmation with spot radiograph and is in the superior vena cava Medications: 4cc 1 percent lidocaine Total Fluoro time: 9 seconds Radiation: [id number] mGym2 EBL: 2 cc HISTORY: Foot ulcer requiring long-term IV antibiotics TECHNIQUE: Following informed consent and procedure time-out, the patient was placed supine on the interventional table and the right arm prepped and draped in the usual sterile fashion. Ultrasound showed a patent and compressible right basilic vein. After the skin was anesthetized with lidocaine, the basilic vein was accessed with micro micropuncture technique using ultrasound guidance. A guidewire was then advanced under fluoroscopic guidance into the superior vena cava. An image documenting ultrasound guidance for vascular access was permanently saved. The length of the single-lumen 4 [place] PICC was trimmed to 35 centimeters and advanced through a peel-away sheath. The PICC was position with tip of PICC confirm a spot radiograph the superior vena cava. The PICC was secured to the patient's skin. The PICC was flushed. A biopatch and sterile dressing was applied. IMPRESSION: Placement of a single-lumen 4 [place]ic PICC trimmed to 35 centimeters via right basilic vein. The tip of the PICC is confirmed with spot radiograph and is in the superior vena cava.
--- NOTE | 2016-08-31 21:16 | US ---
Date of procedure: 08/31/2016 Procedure: Ultrasound guidance for vascular access HISTORY: Foot ulcer requiring long-term IV antibiotics TECHNIQUE: Following informed consent and procedure time-out, the patient placed supine on the interventional table and the right arm prepped and draped in the usual sterile fashion. Ultrasound showed a patent and compressible basilic vein. After the skin was anesthetized with lidocaine, the basilic vein was accessed with micro micropuncture technique using ultrasound guidance. An image documenting ultrasound guidance for vascular access was permanently saved. IMPRESSION: Ultrasound guidance for vascular access for placement of PICC.
[2016-09-01] MEDS: Piperacillin/Tazobact 3.375 GM in Sodium Chloride 100 ML IVPB SCH ×4 (05:15→23:30)
[2016-09-01 07:33] LABS: BASO # 0.1 K/uL (0.0-0.2); BASO % 1.2 % (0.0-2.0); EOS # 0.5 K/uL (0.0-0.7); EOS % 5.3 % (0.0-4.0); HEMATOCRIT 30.2 % (35.0-51.0); LYMPH # 1.9 K/uL (1.0-4.3); LYMPH % 22.2 % (20.0-40.0); MEAN CELL VOLUME 70.1 fL (80.0-94.0); MEAN CORPUSCULAR HEMOGLOBIN 21.7 pg (27.0-31.0); MEAN PLATELET VOLUME 9.6 fL (7.2-11.7); MONO # 0.8 K/uL (0.0-0.8); MONO % 9.3 % (0.0-10.0); RED CELL DISTRIBUTION WIDTH 19.8 % (11.5-14.5); WHITE BLOOD COUNT 8.5 K/uL (4.8-10.8)
[2016-09-01 07:50] LABS: CHLORIDE 105 mmol/L (98-107); SODIUM 139 mmol/L (132-148)
[2016-09-01 07:52] LABS: ALB/GLOB RATIO 0.8 (1.0-2.1); ALKALINE PHOSPHATASE 60 U/L (38-126); AST/SGOT 46 U/L (17-59); BILIRUBIN,TOTAL 0.5 mg/dL (0.2-1.3); CARBON DIOXIDE 27 mmol/L (22-30); GFR AFRICAN-AMERICAN > 60; TOTAL PROTEIN 6.8 g/dL (6.3-8.3)
[2016-09-01 07:53] LABS: ALT/SGPT 45 U/L (21-72); BLOOD UREA NITROGEN 13 mg/dL (9-20); CALCIUM 8.4 mg/dl (8.6-10.4); GLUCOSE,RANDOM 82 mg/dL (75-110)
[2016-09-01] MEDS: Silver Sulfadiazine 1% Cream (20 gm) TOP SCH (09:33)
[2016-09-01] MEDS: Enoxaparin 40 mg Syringe SC SCH (09:34)
--- NOTE | 2016-09-01 09:35 | CP.PCM.PN ---
Subjective - Date & Time of Evaluation Date of Evaluation: 09/01/16 Time of Evaluation: 07:15 - Subjective Subjective: Medicine Note- Dr. Verdin's service Patient was seen and examined at bedside. Patient reports no acute complaints at this time. He says he still has pain in his lower extremities but is tolerating it well. No events overnight, per nursing. Objective - Vital Signs/Intake and Output Vital Signs (last 24 hours): Temp Pulse Resp BP Pulse Ox 97.7 F 72 20 168/75 H 97 09/01/16 08:15 09/01/16 08:15 09/01/16 08:15 09/01/16 08:15 09/01/16 08:15 - Medications Medications: Current Medications Acetaminophen (Tylenol 325mg Tab) 650 mg PO Q6 PRN PRN Reason: Pain, moderate (4-7) Last Admin: 09/01/16 06:27 Dose: 650 mg Aspirin (Aspirin Chewable) 81 mg PO DAILY [facility] Last Admin: 08/30/16 10:52 Dose: 81 mg Clopidogrel Bisulfate (Plavix) 75 mg PO DAILY [facility] Last Admin: 08/30/16 10:52 Dose: 75 mg Enoxaparin Sodium (Lovenox) 40 mg SC DAILY [facility] Last Admin: 08/30/16 10:53 Dose: 40 mg Famotidine (Pepcid) 20 mg PO DAILY [facility] Last Admin: 08/30/16 10:52 Dose: 20 mg Piperacillin Sod/Tazobactam (Sod 3.375 gm/ Sodium Chloride) 100 mls @ 200 mls/ hr IVPB Q6H [facility] Last Admin: 09/01/16 05:15 Dose: 200 mls/hr Vancomycin HCl 750 mg/ Sodium (Chloride) 250 mls @ 166.6 mls/hr IVPB Q12H [facility] Last Admin: 09/01/16 00:12 Dose: 166.6 mls/hr Metoprolol Tartrate (Lopressor) 25 mg PO BID [facility] Last Admin: 08/30/16 17:30 Dose: 25 mg Silver Sulfadiazine (Silvadene 1% 20 Gm) 1 ea TOP DAILY [facility] Last Admin: 08/30/16 10:54 Dose: Not Given - Labs Labs: 09/01/16 07:14 09/01/16 07:14 - Constitutional Appears: Non-toxic, No Acute Distress - Head Exam Head Exam: ATRAUMATIC, NORMAL INSPECTION, NORMOCEPHALIC - Eye Exam Pupil Exam: NORMAL ACCOMODATION, PERRL - ENT Exam ENT Exam: Mucous Membranes Moist - Respiratory Exam Respiratory Exam: Clear to Ausculation Bilateral, NORMAL BREATHING PATTERN. absent: Rales, Rhonchi, Wheezes - Cardiovascular Exam Cardiovascular Exam: REGULAR RHYTHM, +S1, +S2 - GI/Abdominal Exam GI & Abdominal Exam: Soft, Normal Bowel Sounds. absent: Guarding, Rigid, Tenderness, Diminished Bowel Sounds, Hernia, Hypoactive Bowel Sounds - Extremities Exam Extremities Exam: Normal Capillary Refill Additional comments: bilateral lower extremities are wrapped. - Neurological Exam Neurological Exam: Alert, Awake, Oriented x3 - Psychiatric Exam Psychiatric exam: Normal Affect, Normal Mood - Skin Skin Exam: Dry, Intact, Normal Color, Warm Assessment and Plan - Assessment and Plan (Free Text) Assessment: Cellulitis Assessment & Plan: Afebrile, no leukocytosis ID Dr. Allison consulted. Wound care consulted. Podiatry Dr. Conner consulted. Zosyn 3.375gm IVPB Q6H (started on 08/25- to end on 09/07) Vancomycin 750mg IVPB Q12H (started on 08/26- to end on 09/07) R leg Wound culture- prelim- gram negative juan L foot wound culture- negative PVD Assessment & Plan: Patient with history of DVTs Vascular Surgery Dr. Velasquez consulted- no additional intervention at this time. Continue ASA and Plavix Arterial doppler showed possible occlusion of right mid to distal anterior tibial artery, 50-75% stenosis of right distal superficial femoral and proximal popliteal arteries and 30-49% stenosis of the right common femoral and proximal profunda femoral arteries. Possible occlusion of left mid to distal anterior tibial artery and 50-75% stenosis of left common femoral and proximal superifical femoral arteries. CT angio showed SFA stent patent. 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 Status: Acute History of Aortic Valve Replacement Assessment & Plan: INR 1.2 on 06/2016 Continue Plavix and ASA Status: Acute CAD (coronary artery disease) Assessment & Plan: Patient on ASA and Plavix at home, continue meds. Status: Acute HTN (hypertension) Assessment & Plan: BP controlled Continue Lopressor 25 mg PO BID Status: Acute Prophylactic measure Assessment & Plan: Pepcid, Plavix All management as per Dr. Verdin.
--- NOTE | 2016-09-01 12:24 | CP.PCM.PN ---
Subjective - Date & Time of Evaluation Date of Evaluation: 09/01/16 Time of Evaluation: 12:30 - Subjective Subjective: 81 y/o male was seen and evaluated at bedside this morning for follow-up on bilateral lower extremity wounds. Patient was resting comfortably, in NAD. He states that he experiences minimal pain in the region of his wounds bilaterally , but denies any other pedal complaints at this time. Dressings appear to be C/D /I bilaterally. He denies any F/C/N/V/SOB/CP. Objective - Vital Signs/Intake and Output Vital Signs (last 24 hours): Temp Pulse Resp BP Pulse Ox 97.7 F 72 20 125/73 97 09/01/16 08:15 09/01/16 08:15 09/01/16 08:15 09/01/16 09:34 09/01/16 08:15 - Medications Medications: Current Medications Acetaminophen (Tylenol 325mg Tab) 650 mg PO Q6 PRN PRN Reason: Pain, moderate (4-7) Last Admin: 09/01/16 06:27 Dose: 650 mg Aspirin (Aspirin Chewable) 81 mg PO DAILY [facility] Last Admin: 09/01/16 09:34 Dose: 81 mg Clopidogrel Bisulfate (Plavix) 75 mg PO DAILY [facility] Last Admin: 09/01/16 09:34 Dose: 75 mg Enoxaparin Sodium (Lovenox) 40 mg SC DAILY [facility] Last Admin: 09/01/16 09:34 Dose: 40 mg Famotidine (Pepcid) 20 mg PO DAILY [facility] Last Admin: 09/01/16 09:34 Dose: 20 mg Piperacillin Sod/Tazobactam (Sod 3.375 gm/ Sodium Chloride) 100 mls @ 200 mls/ hr IVPB Q6H [facility] Last Admin: 09/01/16 11:03 Dose: 200 mls/hr Vancomycin HCl 750 mg/ Sodium (Chloride) 250 mls @ 166.6 mls/hr IVPB Q12H [facility] Last Admin: 09/01/16 00:12 Dose: 166.6 mls/hr Metoprolol Tartrate (Lopressor) 25 mg PO BID [facility] Last Admin: 09/01/16 09:34 Dose: 25 mg Silver Sulfadiazine (Silvadene 1% 20 Gm) 1 ea TOP DAILY [facility] Last Admin: 09/01/16 09:33 Dose: Not Given - Labs Labs: 09/01/16 07:14 09/01/16 07:14 - Constitutional Appears: Non-toxic, No Acute Distress - Neurological Exam Neurological Exam: Alert, Awake, Oriented x3 - Psychiatric Exam Psychiatric exam: Normal Affect, Normal Mood - Skin Skin Exam: Dry, Normal Color, Warm - Additional Findings Additional findings: Bilateral lower extremity examination: DERMATOLOGIC: Bilateral anterior leg full thickness ulcerations with fibrotic base, moderate serous drainage present, positive mild malodor, wound edges are intact with mild periwound erythema, no streaking, no purulence, no tracking of the wounds. Remaining skin is intact, with diffuse xerosis bilaterally. VASCULAR: Moderate diffuse edema of bilateral lower extremities is present. There is increased skin temperature bilaterally NEUROLOGIC: Gross sensation intact, motor function intact ORTHOPEDIC: Pain on palpation to bilateral lower extremity wounds Assessment and Plan - Assessment and Plan (Free Text) Assessment: 81 y/o M with PVD and bilateral chronic stasis ulcerations of the legs Plan: Patient seen and evaluated at bedside Labs and vitals reviewed Bilateral lower extremity dressings were changed with Xeroform DSD Ordered Ammonium lactate cream, to be applied to both feet BID CT angio reveals generalized atherosclerosis of the SFA and popliteal a. bilaterally with 50-60% stenosis of the Right popliteal artery Patient to continue receiving IV abx, as per ID recommendations Discussed patient with attending, Dr. Conner Podiatry to follow while patient remains in house
--- NOTE | 2016-09-01 14:17 | CP.PCM.PN ---
Subjective - Date & Time of Evaluation Date of Evaluation: 09/01/16 Time of Evaluation: 09:00 - Subjective Subjective: WOUND GREW PSEUDOMONAS IV RX TO CONT TILL 09/07 Objective - Vital Signs/Intake and Output Vital Signs (last 24 hours): Temp Pulse Resp BP Pulse Ox 97.7 F 72 20 125/73 97 09/01/16 08:15 09/01/16 08:15 09/01/16 08:15 09/01/16 09:34 09/01/16 08:15 - Medications Medications: Current Medications Acetaminophen (Tylenol 325mg Tab) 650 mg PO Q6 PRN PRN Reason: Pain, moderate (4-7) Last Admin: 09/01/16 06:27 Dose: 650 mg Aspirin (Aspirin Chewable) 81 mg PO DAILY [facility] Last Admin: 09/01/16 09:34 Dose: 81 mg Clopidogrel Bisulfate (Plavix) 75 mg PO DAILY [facility] Last Admin: 09/01/16 09:34 Dose: 75 mg Enoxaparin Sodium (Lovenox) 40 mg SC DAILY [facility] Last Admin: 09/01/16 09:34 Dose: 40 mg Famotidine (Pepcid) 20 mg PO DAILY [facility] Last Admin: 09/01/16 09:34 Dose: 20 mg Piperacillin Sod/Tazobactam (Sod 3.375 gm/ Sodium Chloride) 100 mls @ 200 mls/ hr IVPB Q6H [facility] Last Admin: 09/01/16 11:03 Dose: 200 mls/hr Vancomycin HCl 750 mg/ Sodium (Chloride) 250 mls @ 166.6 mls/hr IVPB Q12H [facility] Last Admin: 09/01/16 12:48 Dose: 166.6 mls/hr Metoprolol Tartrate (Lopressor) 25 mg PO BID [facility] Last Admin: 09/01/16 09:34 Dose: 25 mg Silver Sulfadiazine (Silvadene 1% 20 Gm) 1 ea TOP DAILY [facility] Last Admin: 09/01/16 09:33 Dose: Not Given - Labs Labs: 09/01/16 07:14 09/01/16 07:14 - Head Exam Head Exam: NORMAL INSPECTION, NORMOCEPHALIC - Eye Exam Eye Exam: PERRL. absent: Scleral icterus - ENT Exam ENT Exam: Mucous Membranes Dry - Neck Exam Neck Exam: absent: Lymphadenopathy - Respiratory Exam Respiratory Exam: Decreased Breath Sounds, Clear to Ausculation Bilateral - Cardiovascular Exam Cardiovascular Exam: REGULAR RHYTHM, +S1, +S2 - GI/Abdominal Exam GI & Abdominal Exam: Distended, Soft. absent: Tenderness - Rectal Exam Rectal Exam: Deferred - Exam Exam: NORMAL INSPECTION - Extremities Exam Extremities Exam: Pedal Edema. 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
[2016-09-01] MEDS: Ammonium Lactate 12% Lotion (225 g) EXT SCH (18:50)
[2016-09-02] MEDS: Piperacillin/Tazobact 3.375 GM in Sodium Chloride 100 ML IVPB SCH ×4 (05:37→22:25)
[2016-09-02 07:48] LABS: BASO # 0.1 K/uL (0.0-0.2); BASO % 0.8 % (0.0-2.0); EOS # 0.5 K/uL (0.0-0.7); EOS % 6.3 % (0.0-4.0); LYMPH # 1.9 K/uL (1.0-4.3); MEAN CELL VOLUME 70.4 fL (80.0-94.0); MEAN CORPUSCULAR HEMOGLOBIN 21.5 pg (27.0-31.0); MEAN CORPUSCULAR HGB CONC 30.5 g/dL (33.0-37.0); MEAN PLATELET VOLUME 9.3 fL (7.2-11.7); MONO # 0.8 K/uL (0.0-0.8); MONO % 9.9 % (0.0-10.0); NRBC % 0.1 % (0.0-2.0); RED CELL DISTRIBUTION WIDTH 19.7 % (11.5-14.5); WHITE BLOOD COUNT 8.3 K/uL (4.8-10.8)
[2016-09-02 08:13] LABS: CHLORIDE 105 mmol/L (98-107); SODIUM 137 mmol/L (132-148)
[2016-09-02 08:14] LABS: POTASSIUM 4.2 mmol/L (3.6-5.2)
[2016-09-02 08:16] LABS: ALB/GLOB RATIO 0.8 (1.0-2.1); ALKALINE PHOSPHATASE 56 U/L (38-126); ALT/SGPT 33 U/L (21-72); AST/SGOT 34 U/L (17-59); BILIRUBIN,TOTAL 0.5 mg/dL (0.2-1.3); BLOOD UREA NITROGEN 12 mg/dL (9-20); CARBON DIOXIDE 25 mmol/L (22-30); GFR AFRICAN-AMERICAN > 60; GLUCOSE,RANDOM 74 mg/dL (75-110); TOTAL PROTEIN 6.9 g/dL (6.3-8.3)
[2016-09-02 08:17] LABS: CALCIUM 8.7 mg/dl (8.6-10.4)
[2016-09-02] MEDS: Enoxaparin 40 mg Syringe SC SCH ×2 (09:27→11:25)
[2016-09-02] MEDS: Ammonium Lactate 12% Lotion (225 g) EXT SCH ×2 (09:30→17:38)
[2016-09-02] MEDS: Silver Sulfadiazine 1% Cream (20 gm) TOP SCH (09:47)
--- NOTE | 2016-09-02 10:27 | CP.PCM.PN ---
Subjective - Date & Time of Evaluation Date of Evaluation: 09/02/16 Time of Evaluation: 10:24 - Subjective Subjective: 81 y/o male was seen and evaluated at bedside this morning for follow-up on bilateral lower extremity wounds. Patient is pleasent and resting comfortably upon exam. Patient states that his legs are feeling much better since admission. States that he thinks he will be transferred to a rehab facility soon. States minimal pain to the are of ulceration of the wound son his LE but it is controlled with pain medication. Denies any new complaints. Denies any f/c/n/v/sob. Objective - Vital Signs/Intake and Output Vital Signs (last 24 hours): Temp Pulse Resp BP Pulse Ox 98.1 F 108 H 20 148/78 100 09/02/16 08:12 09/02/16 08:12 09/02/16 08:12 09/02/16 09:27 09/02/16 08:12 Intake and Output: 09/02/16 09/02/16 06:59 18:59 Intake Total 1340 Output Total 350 Balance 990 - Medications Medications: Current Medications Acetaminophen (Tylenol 325mg Tab) 650 mg PO Q6 PRN PRN Reason: Pain, moderate (4-7) Last Admin: 09/02/16 09:29 Dose: 650 mg Aspirin (Aspirin Chewable) 81 mg PO DAILY [facility] Last Admin: 09/02/16 09:47 Dose: Not Given Clopidogrel Bisulfate (Plavix) 75 mg PO DAILY [facility] Last Admin: 09/02/16 09:27 Dose: 75 mg Enoxaparin Sodium (Lovenox) 40 mg SC DAILY [facility] Last Admin: 09/02/16 09:27 Dose: 40 mg Famotidine (Pepcid) 20 mg PO DAILY [facility] Last Admin: 09/02/16 09:27 Dose: 20 mg Piperacillin Sod/Tazobactam (Sod 3.375 gm/ Sodium Chloride) 100 mls @ 200 mls/ hr IVPB Q6H [facility] Last Admin: 09/02/16 05:37 Dose: 200 mls/hr Vancomycin HCl 750 mg/ Sodium (Chloride) 250 mls @ 166.6 mls/hr IVPB Q12H [facility] Last Admin: 09/02/16 00:50 Dose: 166.6 mls/hr Lactic Acid (Lac-Hydrin 12% Lotion (225 G)) 0 gm EXT BID [facility] Last Admin: 09/02/16 09:30 Dose: 1 applic Metoprolol Tartrate (Lopressor) 25 mg PO BID [facility] Last Admin: 09/02/16 09:27 Dose: 25 mg Silver Sulfadiazine (Silvadene 1% 20 Gm) 1 ea TOP DAILY [facility] Last Admin: 09/02/16 09:47 Dose: Not Given - Labs Labs: 09/02/16 07:20 09/02/16 07:20 - Additional Findings Additional findings: Bilateral lower extremity examination: DERMATOLOGIC: Bilateral anterior leg full thickness ulcerations with fibrotic base, moderate serous drainage present, positive mild malodor, wound edges are intact with mild periwound erythema, no streaking, no purulence, no tracking of the wounds. Remaining skin is intact, with diffuse xerosis bilaterally. VASCULAR: Moderate diffuse edema of bilateral lower extremities is present. There is increased skin temperature bilaterally NEUROLOGIC: Gross sensation intact, motor function intact ORTHOPEDIC: Pain on palpation to bilateral lower extremity wounds Assessment and Plan - Assessment and Plan (Free Text) Assessment: 81 y/o M with PVD and bilateral chronic stasis ulcerations of the legs Plan: Patient seen and evaluated at bedside Labs and vitals reviewed Bilateral lower extremity dressings were changed with Xeroform DSD Ammonium lactate applied ot b/l LE w/o complication. Upon transfer to continue daily dressing changes with DSD and xeroform with application of ammonium lactate. Can wbat to LE. T angio reveals generalized atherosclerosis of the SFA and popliteal a. bilaterally with 50-60% stenosis of the Right popliteal artery Patient to continue receiving IV abx, as per ID recommendations Discussed patient with attending, Dr. Conner Podiatry to follow while patient remains in house
--- NOTE | 2016-09-02 14:19 | CP.PCM.PN ---
Subjective - Date & Time of Evaluation Date of Evaluation: 09/02/16 Time of Evaluation: 10:24 - Subjective Subjective: Pt seen for treatment of ulcers of ankles b/l .No complaints noted Objective - Vital Signs/Intake and Output Vital Signs (last 24 hours): Temp Pulse Resp BP Pulse Ox 98.1 F 108 H 20 148/78 100 09/02/16 08:12 09/02/16 08:12 09/02/16 08:12 09/02/16 09:27 09/02/16 08:12 Intake and Output: 09/02/16 09/02/16 06:59 18:59 Intake Total 1340 690 Output Total 350 Balance 990 690 - Medications Medications: Current Medications Acetaminophen (Tylenol 325mg Tab) 650 mg PO Q6 PRN PRN Reason: Pain, moderate (4-7) Last Admin: 09/02/16 09:29 Dose: 650 mg Aspirin (Aspirin Chewable) [address] [facility] Last Admin: 09/02/16 09:47 Dose: Not Given Clopidogrel Bisulfate (Plavix) [address] [facility] Last Admin: 09/02/16 09:27 Dose: 75 mg Famotidine (Pepcid) [address] [facility] Last Admin: 09/02/16 09:27 Dose: 20 mg Piperacillin Sod/Tazobactam (Sod 3.375 gm/ Sodium Chloride) 100 mls @ 200 mls/ hr IVPB Q6H [facility] Last Admin: 09/02/16 11:24 Dose: 200 mls/hr Vancomycin HCl 750 mg/ Sodium (Chloride) 250 mls @ 166.6 mls/hr IVPB Q12H [facility] Last Admin: 09/02/16 11:29 Dose: 166.6 mls/hr Lactic Acid (Lac-Hydrin 12% Lotion (225 G)) [address] [facility] Last Admin: 09/02/16 09:30 Dose: 1 applic Metoprolol Tartrate (Lopressor) [address] [facility] Last Admin: 09/02/16 09:27 Dose: 25 mg Silver Sulfadiazine (Silvadene 1% 20 Gm) [address] [facility] Last Admin: 09/02/16 09:47 Dose: Not Given - Labs Labs: 09/02/16 07:20 09/02/16 07:20 - Extremities Exam Additional comments: O/ Venous ulcers of ankles b/l improved . Vascular status intact b/l . C&S POS. for psuedomonas . no gross ortho abnormalities . Assessment and Plan - Assessment and Plan (Free Text) Assessment: AVenous ulcers /Pad b/l Plan: Continue Xeroform dressings and dsd b/l Antibiotic as per rx .
[2016-09-03] MEDS: Piperacillin/Tazobact 3.375 GM in Sodium Chloride 100 ML IVPB SCH ×2 (05:37→12:03)
[2016-09-03 07:51] LABS: BASO # 0.1 K/uL (0.0-0.2); BASO % 0.8 % (0.0-2.0); EOS # 0.5 K/uL (0.0-0.7); EOS % 5.7 % (0.0-4.0); HEMATOCRIT 28.9 % (35.0-51.0); LYMPH % 24.3 % (20.0-40.0); MEAN CELL VOLUME 70.5 fL (80.0-94.0); MEAN CORPUSCULAR HEMOGLOBIN 21.5 pg (27.0-31.0); MEAN CORPUSCULAR HGB CONC 30.5 g/dL (33.0-37.0); MONO # 0.8 K/uL (0.0-0.8); MONO % 9.9 % (0.0-10.0); RED CELL DISTRIBUTION WIDTH 19.7 % (11.5-14.5); WHITE BLOOD COUNT 8.3 K/uL (4.8-10.8)
[2016-09-03 08:20] LABS: CHLORIDE 105 mmol/L (98-107)
[2016-09-03 08:21] LABS: POTASSIUM 4.1 mmol/L (3.6-5.2); SODIUM 139 mmol/L (132-148)
[2016-09-03 08:23] LABS: ALB/GLOB RATIO 0.8 (1.0-2.1); AST/SGOT 30 U/L (17-59); BILIRUBIN,TOTAL 0.5 mg/dL (0.2-1.3); BLOOD UREA NITROGEN 15 mg/dL (9-20); CARBON DIOXIDE 26 mmol/L (22-30); GFR AFRICAN-AMERICAN > 60
[2016-09-03 08:24] LABS: ALKALINE PHOSPHATASE 55 U/L (38-126); ALT/SGPT 33 U/L (21-72); CALCIUM 8.5 mg/dl (8.6-10.4); GLUCOSE,RANDOM 80 mg/dL (75-110)
[2016-09-03] MEDS: Ammonium Lactate 12% Lotion (225 g) EXT SCH ×2 (10:00→17:42)
[2016-09-03] MEDS: Silver Sulfadiazine 1% Cream (20 gm) TOP SCH (10:00)
--- NOTE | 2016-09-03 10:32 | CP.PCM.PN ---
Subjective - Date & Time of Evaluation Date of Evaluation: 09/03/16 Time of Evaluation: 10:32 - Subjective Subjective: 81 y/o male was seen and evaluated at bedside this morning for follow-up on bilateral lower extremity wounds. Patient is pleasent and resting comfortably upon exam. States that he thinks he will be transferred to a rehab facility soon. States minimal pain to the are of ulceration of the wounds on his LE but it is controlled with pain medication. Denies any new complaints. Denies any f/c/n/v/sob. Objective - Vital Signs/Intake and Output Vital Signs (last 24 hours): Temp Pulse Resp BP Pulse Ox 98.1 F 100 H 20 125/77 97 09/03/16 08:28 09/03/16 08:28 09/03/16 08:28 09/03/16 09:47 09/03/16 08:28 Intake and Output: 09/03/16 09/03/16 06:59 18:59 Intake Total 400 600 Balance 400 600 - Medications Medications: Current Medications Acetaminophen (Tylenol 325mg Tab) 650 mg PO Q6 PRN PRN Reason: Pain, moderate (4-7) Last Admin: 09/03/16 09:59 Dose: 650 mg Aspirin (Aspirin Chewable) 81 mg PO DAILY [facility] Last Admin: 09/03/16 09:48 Dose: 81 mg Clopidogrel Bisulfate (Plavix) 75 mg PO DAILY [facility] Last Admin: 09/03/16 09:47 Dose: 75 mg Famotidine (Pepcid) 20 mg PO DAILY [facility] Last Admin: 09/03/16 09:48 Dose: 20 mg Piperacillin Sod/Tazobactam (Sod 3.375 gm/ Sodium Chloride) 100 mls @ 200 mls/ hr IVPB Q6H [facility] Last Admin: 09/03/16 05:37 Dose: 200 mls/hr Vancomycin HCl 750 mg/ Sodium (Chloride) 250 mls @ 166.6 mls/hr IVPB Q12H [facility] Last Admin: 09/03/16 00:27 Dose: 166.6 mls/hr Lactic Acid (Lac-Hydrin 12% Lotion (225 G)) 0 gm EXT BID [facility] Last Admin: 09/02/16 17:38 Dose: 1 applic Metoprolol Tartrate (Lopressor) 25 mg PO BID [facility] Last Admin: 09/03/16 09:47 Dose: 25 mg Silver Sulfadiazine (Silvadene 1% 20 Gm) 1 ea TOP DAILY [facility] Last Admin: 09/02/16 09:47 Dose: Not Given - Labs Labs: 09/03/16 07:45 09/03/16 07:45 - Constitutional Appears: Well, Non-toxic, No Acute Distress - Neurological Exam Neurological Exam: Alert, Awake, Oriented x3 - Psychiatric Exam Psychiatric exam: Normal Affect, Normal Mood - Skin Skin Exam: Warm - Additional Findings Additional findings: Bilateral lower extremity examination: DERMATOLOGIC: Bilateral anterior leg full thickness ulcerations with fibrotic base, moderate serous drainage present, positive mild malodor, wound edges are intact with mild periwound erythema, no streaking, no purulence, no tracking of the wounds. Remaining skin is intact, with diffuse xerosis bilaterally. VASCULAR: Moderate diffuse edema of bilateral lower extremities is present. There is increased skin temperature bilaterally NEUROLOGIC: Gross sensation intact, motor function intact ORTHOPEDIC: Pain on palpation to bilateral lower extremity wounds Assessment and Plan - Assessment and Plan (Free Text) Assessment: 81 y/o M with PVD and bilateral chronic stasis ulcerations of the legs Plan: Patient seen and evaluated at bedside Labs and vitals reviewed Bilateral lower extremity dressings were changed with Xeroform DSD Ammonium lactate applied ot b/l LE w/o complication. Upon transfer to continue daily dressing changes with DSD and xeroform with application of ammonium lactate. Can wbat to LE. T angio reveals generalized atherosclerosis of the SFA and popliteal a. bilaterally with 50-60% stenosis of the Right popliteal artery Patient to continue receiving IV abx, as per ID recommendations Discussed patient with attending, Dr. Conner Podiatry to follow while patient remains in house
--- NOTE | 2016-09-03 15:28 | CP.PCM.PN ---
Subjective - Date & Time of Evaluation Date of Evaluation: 09/03/16 Time of Evaluation: 08:00 - Subjective Subjective: NO FEVER WOUND GREWW PSEUDOMONAS DR JACOBS ON BOARD Objective - Vital Signs/Intake and Output Vital Signs (last 24 hours): Temp Pulse Resp BP Pulse Ox 98.1 F 100 H 20 125/77 97 09/03/16 08:28 09/03/16 08:28 09/03/16 08:28 09/03/16 09:47 09/03/16 08:28 Intake and Output: 09/03/16 09/03/16 06:59 18:59 Intake Total 400 600 Balance 400 600 - Medications Medications: Current Medications Acetaminophen (Tylenol 325mg Tab) 650 mg PO Q6 PRN PRN Reason: Pain, moderate (4-7) Last Admin: 09/03/16 09:59 Dose: 650 mg Aspirin (Aspirin Chewable) 81 mg PO DAILY [facility] Last Admin: 09/03/16 09:48 Dose: 81 mg Clopidogrel Bisulfate (Plavix) 75 mg PO DAILY [facility] Last Admin: 09/03/16 09:47 Dose: 75 mg Famotidine (Pepcid) 20 mg PO DAILY [facility] Last Admin: 09/03/16 09:48 Dose: 20 mg Piperacillin Sod/Tazobactam (Sod 3.375 gm/ Sodium Chloride) 100 mls @ 200 mls/ hr IVPB Q6H [facility] Last Admin: 09/03/16 12:03 Dose: 200 mls/hr Vancomycin HCl 750 mg/ Sodium (Chloride) 250 mls @ 166.6 mls/hr IVPB Q12H [facility] Last Admin: 09/03/16 13:00 Dose: 166.6 mls/hr Lactic Acid (Lac-Hydrin 12% Lotion (225 G)) 0 gm EXT BID [facility] Last Admin: 09/03/16 10:00 Dose: 1 applic Metoprolol Tartrate (Lopressor) 25 mg PO BID [facility] Last Admin: 09/03/16 09:47 Dose: 25 mg Silver Sulfadiazine (Silvadene 1% 20 Gm) 1 ea TOP DAILY [facility] Last Admin: 09/03/16 10:00 Dose: Not Given - Labs Labs: 09/03/16 07:45 09/03/16 07:45 - Constitutional Appears: Non-toxic, Chronically Ill - Head Exam Head Exam: NORMOCEPHALIC - Eye Exam Eye Exam: PERRL. absent: Scleral icterus - ENT Exam ENT Exam: Mucous Membranes Dry, Normal External Ear Exam - Neck Exam Neck Exam: absent: Lymphadenopathy - Respiratory Exam Respiratory Exam: Decreased Breath Sounds, Rhonchi - Cardiovascular Exam Cardiovascular Exam: REGULAR RHYTHM, +S1, +S2 - GI/Abdominal Exam GI & Abdominal Exam: Distended, Soft. absent: Tenderness - Rectal Exam Rectal Exam: Deferred - Exam Exam: NORMAL INSPECTION - Extremities Exam Extremities Exam: absent: Calf Tenderness, Pedal Edema - Back Exam Back Exam: absent: CVA tenderness (L), CVA tenderness (R) - Neurological Exam Neurological Exam: Alert, Awake, Oriented x3 Assessment and Plan (1) Cellulitis Status: Acute (2) Ischemic ulcer of ankle Status: Acute (3) Swollen leg Status: Acute (4) CAD (coronary artery disease) Status: Acute (5) HTN (hypertension) Status: Acute (6) Heart valve replaced Status: Acute (7) History of DVT (deep vein thrombosis) Status: Acute
[2016-09-03] MEDS: Ciprofloxacin 400mg/200ml D5W 400 MG/200 ML BAG IVPB SCH (17:40)
[2016-09-04 01:35] VITALS: PULSE 79
[2016-09-04] MEDS: Ciprofloxacin 400mg/200ml D5W 400 MG/200 ML BAG IVPB SCH (04:30)
[2016-09-04 06:31] LABS: CHLORIDE 104 mmol/L (98-107); POTASSIUM 4.2 mmol/L (3.6-5.2); SODIUM 136 mmol/L (132-148)
[2016-09-04 06:34] LABS: ALB/GLOB RATIO 0.9 (1.0-2.1); ALKALINE PHOSPHATASE 51 U/L (38-126); ALT/SGPT 26 U/L (21-72); AST/SGOT 44 U/L (17-59); BILIRUBIN,TOTAL 0.4 mg/dL (0.2-1.3); BLOOD UREA NITROGEN 18 mg/dL (9-20); CARBON DIOXIDE 26 mmol/L (22-30); GFR AFRICAN-AMERICAN > 60; GLUCOSE,RANDOM 90 mg/dL (75-110); TOTAL PROTEIN 6.5 g/dL (6.3-8.3)
[2016-09-04 06:35] LABS: CALCIUM 8.7 mg/dl (8.6-10.4)
[2016-09-04 08:37] VITALS: BP 118/68; TEMP 98.2; O2SAT 99
--- NOTE | 2016-09-04 09:56 | CP.PCM.PN ---
Subjective - Date & Time of Evaluation Date of Evaluation: 09/04/16 Time of Evaluation: 08:50 - Subjective Subjective: Medicine Note- Dr. Verdin's service Patient was seen and examined at bedside. Patient reports no acute complaints at this time. He still has pain in both lower extremities at the wound sites. No events overnight, per nursing. Objective - Vital Signs/Intake and Output Vital Signs (last 24 hours): Temp Pulse Resp BP Pulse Ox 98.2 F 79 20 118/68 99 09/04/16 08:36 09/04/16 08:36 09/04/16 08:36 09/04/16 08:36 09/04/16 08:36 Intake and Output: 09/04/16 09/04/16 06:59 18:59 Intake Total 1190 Balance 1190 - Medications Medications: Current Medications Acetaminophen (Tylenol 325mg Tab) 650 mg PO Q6 PRN PRN Reason: Pain, moderate (4-7) Last Admin: 09/03/16 20:49 Dose: 650 mg Aspirin (Aspirin Chewable) 81 mg PO DAILY [facility] Last Admin: 09/03/16 09:48 Dose: 81 mg Clopidogrel Bisulfate (Plavix) 75 mg PO DAILY [facility] Last Admin: 09/03/16 09:47 Dose: 75 mg Enoxaparin Sodium (Lovenox) 40 mg SC DAILY [facility] Famotidine (Pepcid) 20 mg PO DAILY [facility] Last Admin: 09/03/16 09:48 Dose: 20 mg Vancomycin HCl 750 mg/ Sodium (Chloride) 250 mls @ 166.6 mls/hr IVPB Q12H [facility] Last Admin: 09/04/16 00:36 Dose: 166.6 mls/hr Ciprofloxacin (Cipro 400mg/200ml Dsw) 400 mg in 200 mls @ 133 mls/hr IVPB Q12H [facility] Last Admin: 09/04/16 04:30 Dose: 133 mls/hr Lactic Acid (Lac-Hydrin 12% Lotion (225 G)) 0 gm EXT BID [facility] Last Admin: 09/03/16 17:42 Dose: 1 applic Metoprolol Tartrate (Lopressor) 25 mg PO BID [facility] Last Admin: 09/03/16 17:41 Dose: 25 mg Silver Sulfadiazine (Silvadene 1% 20 Gm) 1 ea TOP DAILY [facility] Last Admin: 09/03/16 10:00 Dose: Not Given - Labs Labs: 09/03/16 07:45 09/04/16 06:01 - Constitutional Appears: Non-toxic, No Acute Distress - Head Exam Head Exam: ATRAUMATIC, NORMAL INSPECTION, NORMOCEPHALIC - Eye Exam Pupil Exam: NORMAL ACCOMODATION, PERRL - ENT Exam ENT Exam: Mucous Membranes Moist - Respiratory Exam Respiratory Exam: Clear to Ausculation Bilateral, NORMAL BREATHING PATTERN. absent: Rales, Rhonchi, Wheezes - Cardiovascular Exam Cardiovascular Exam: REGULAR RHYTHM, Murmur - GI/Abdominal Exam GI & Abdominal Exam: Soft, Normal Bowel Sounds. absent: Guarding, Rigid, Tenderness, Diminished Bowel Sounds, Hypoactive Bowel Sounds - Extremities Exam Extremities Exam: Normal Capillary Refill - Neurological Exam Neurological Exam: Alert, Awake, Oriented x3 - Psychiatric Exam Psychiatric exam: Normal Affect, Normal Mood - Skin Skin Exam: Dry, Intact, Normal Color, Warm Assessment and Plan - Assessment and Plan (Free Text) Assessment: Cellulitis Assessment & Plan: Afebrile, no leukocytosis ID Dr. Allison consulted. Wound care consulted. Podiatry Dr. Conner consulted. Zosyn 3.375gm IVPB Q6H (started on 08/25- discontinued on 09/03) Cipro 400mg IVPB Q12h (Started on 09/03- to end on 09/07) Vancomycin 750mg IVPB Q12H (started on 08/26- to end on 09/07) R leg Wound culture- prelim- gram negative juan L foot wound culture- negative PVD Assessment & Plan: Patient with history of DVTs Vascular Surgery Dr. Velasquez consulted- no additional intervention at this time. Continue ASA and Plavix Arterial doppler showed possible occlusion of right mid to distal anterior tibial artery, 50-75% stenosis of right distal superficial femoral and proximal popliteal arteries and 30-49% stenosis of the right common femoral and proximal profunda femoral arteries. Possible occlusion of left mid to distal anterior tibial artery and 50-75% stenosis of left common femoral and proximal superifical femoral arteries. CT angio showed SFA stent patent. 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 Status: Acute History of Aortic Valve Replacement Assessment & Plan: INR 1.2 on 06/2016 Continue Plavix and ASA Status: Acute CAD (coronary artery disease) Assessment & Plan: Patient on ASA and Plavix at home, continue meds. Status: Acute HTN (hypertension) Assessment & Plan: BP controlled Continue Lopressor 25 mg PO BID Status: Acute Prophylactic measure Assessment & Plan: Pepcid, Plavix All management as per Dr. Verdin. DC Planning- awaiting authorization
[2016-09-04] MEDS ORDERED: Enoxaparin 40 mg Syringe SC SCH (10:00)
[2016-09-04] MEDS ORDERED: guaiFENesin 200 mg/10 ml Syrup UD PO PRN (10:14)
[2016-09-04] MEDS: Ammonium Lactate 12% Lotion (225 g) EXT SCH (11:23)
[2016-09-04] MEDS: Silver Sulfadiazine 1% Cream (20 gm) TOP SCH (11:24)
--- NOTE | 2016-09-04 19:25 | CP.PCM.PN ---
Subjective - Date & Time of Evaluation Date of Evaluation: 09/04/16 Time of Evaluation: 12:00 - Subjective Subjective: 81 y/o male patient was seen and evaluated at bedside this afternoon for follow- up on bilateral LE wounds. Patient was resting comfortably, in NAD. Bilateral LE dressings appear to be C/D/I. No pedal complaints reported at this time. Objective - Vital Signs/Intake and Output Vital Signs (last 24 hours): Temp Pulse Resp BP Pulse Ox 98.2 F 79 20 118/68 99 09/04/16 08:36 09/04/16 08:36 09/04/16 08:36 09/04/16 11:23 09/04/16 08:36 Intake and Output: 09/04/16 09/05/16 18:59 06:59 Intake Total 750 Balance 750 - Labs Labs: 09/03/16 07:45 09/04/16 06:01 - Constitutional Appears: Non-toxic, No Acute Distress - Neurological Exam Neurological Exam: Alert, Awake, Oriented x3 - Psychiatric Exam Psychiatric exam: Normal Affect, Normal Mood - Skin Skin Exam: Dry, Warm - Additional Findings Additional findings: Bilateral lower extremity examination: DERMATOLOGIC: Bilateral anterior leg full thickness ulcerations with fibrotic base, moderate serous drainage present, positive mild malodor, wound edges are intact with mild periwound erythema, no streaking, no purulence, no tracking of the wounds. Remaining skin is intact, with diffuse xerosis bilaterally. VASCULAR: Moderate diffuse edema of bilateral lower extremities is present. There is increased skin temperature bilaterally NEUROLOGIC: Gross sensation intact, motor function intact ORTHOPEDIC: Pain on palpation to bilateral lower extremity wounds Assessment and Plan - Assessment and Plan (Free Text) Assessment: 81 y/o M with PVD and bilateral chronic stasis ulcerations of the legs Plan: Patient seen and evaluated at bedside Labs and vitals reviewed Bilateral lower extremity dressings were changed with Xeroform DSD Ammonium lactate applied ot b/l LE w/o complication. Upon transfer to continue daily dressing changes with DSD and xeroform with application of ammonium lactate. Can wbat to LE. T angio reveals generalized atherosclerosis of the SFA and popliteal a. bilaterally with 50-60% stenosis of the Right popliteal artery Discussed patient with attending, Dr. Conner Patient is stable for discharge from podiatric perspective
--- NOTE | 2016-09-18 09:28 | DS ---
The patient was admitted to the hospital complaining of pain and swelling of the leg. The patient knight s history of peripheral vascular disease, status post stenting. The patient getting home care for th e wound. The patient is started on IV antibiotics, supportive care. Showed a lot of improvement and transferred to rehab for IV antibiotics. Brandy Bull MD cc: [id number] TT: 09/15/2016 11:25:17 rn 09/18/2016 08:27:15
== END 2016-09-04 16:30 | DRG 300 ==
LOC: C.ER 19:44 → C.9E 23:07 → C.3T 23:53
PROVIDERS: ADMIT Internal Medicine Pulmonary Disease; ATTEND Internal Medicine Pulmonary Disease
PROC: 02HV33Z Insertion of Infusion Device into Superior Vena Cava, Percutaneous Approach (ICD-10-PCS; principal; 2016-08-31)
PROC: B548ZZA Ultrasonography of Superior Vena Cava, Guidance (ICD-10-PCS; 2016-08-31)
DX: I70.243 Atherosclerosis of native arteries of left leg with ulceration of ankle (principal); L03.116 Cellulitis of left lower limb; I11.0 Hypertensive heart disease with heart failure; I50.9 Heart failure, unspecified; I70.233 Atherosclerosis of native arteries of right leg with ulceration of ankle; L97.311 Non-pressure chronic ulcer of right ankle limited to breakdown of skin; L97.321 Non-pressure chronic ulcer of left ankle limited to breakdown of skin; J44.9 Chronic obstructive pulmonary disease, unspecified; M79.89 Other specified soft tissue disorders; D64.9 Anemia, unspecified; I25.10 Atherosclerotic heart disease of native coronary artery without angina pectoris; F17.211 Nicotine dependence, cigarettes, in remission; Z95.2 Presence of prosthetic heart valve; Z79.01 Long term (current) use of anticoagulants; Z86.718 Personal history of other venous thrombosis and embolism

== ENCOUNTER 2016-10-03 12:55 | Inpatient (IN) | payer MEDICARE ==
[2016-10-03 12:55] VITALS: BMI 12.4
--- NOTE | 2016-10-03 14:03 | C.PDOC ---
History Of Present Illness 81 y/o M c PMHx HTN, CAD, valve replacement, PVD, chronic leg wounds p/w acutely worsening leg wounds. Patient is visited at home twice weekly by a nurse who noted that his leg wounds, particularly the R leg was acutely worse with necrotic areas within the wound and instructed him to come to the hospital. He denies fever, chills, chest pain, dyspnea, nausea, vomiting. Not on antibiotics at home. PMD [place] Seen [place] for PVD Time Seen by Provider: 10/03/16 13:52 Chief Complaint (Nursing): Lower Extremity Problem/Injury Past Medical History Vital Signs: Last Vital Signs Temp 98 F 10/03/16 13:10 Pulse 86 10/03/16 13:10 Resp 18 10/03/16 13:10 BP 149/72 10/03/16 13:10 Pulse Ox 98 10/03/16 14:55 - Medical History PMH: Anemia, Arthritis (B/L KNEE JT L >R), Colonic Polyps, Fractures (ANKLE), Gall Bladder Disease (GALLSTONES ROBIN), HTN, Peripheral Edema Denies: Chronic Kidney Disease Surgical History: Cholecystectomy, Endoscopy - [facility] Procedures CORONAR ARTERIOGR-2 CATH (06/26/14) CT SCAN OF ABD AORTA USING OTH CONTRAST (01/26/16) CT SCAN OF BI LOW EXTREM ART USING OTH CONTRAST (01/26/16) DILATION OF R FEM ART WITH DRUG-ELUT INTRA, PERC APPROACH (07/10/16) ETHMOIDECTOMY (01/27/14) EXTIRPATION OF MATTER FROM R FEM ART, PERC APPROACH (07/10/16) INSERTION OF INFUSION DEV INTO SUP VENA CAVA, PERC APPROACH (08/25/16) INTRANASAL ANTROTOMY (01/27/14) LEFT HEART CARDIAC CATH (06/26/14) LT HEART ANGIOCARDIOGRAM (06/26/14) SPHENOIDOTOMY (01/27/14) SUBMUC NASAL SEPT RESECT (01/27/14) TURBINECTOMY NEC (01/27/14) ULTRASONOGRAPHY OF SUPERIOR VENA CAVA, GUIDANCE (08/25/16) Family History: States: Unknown Family Hx - Social History Hx Alcohol Use: No Hx Substance Use: No - Immunization History Hx Tetanus Toxoid Vaccination: No Hx Influenza Vaccination: No Hx Pneumococcal Vaccination: No Review Of Systems Except As Marked, All Systems Reviewed And Found Negative. Constitutional: Negative for: Fever, Chills Cardiovascular: Negative for: Chest Pain Physical Exam - Physical Exam Additional Physical Exam Comments: Constitutional: No acute distress. Head: Normocephalic. Atraumatic. Eyes: PERRL. ENT: Moist mucous membranes. Neck: Supple. Cardiovascular: Regular rate. Radial pulse 2+ bilaterally. Chest: No tenderness. Respiratory: Clear to auscultation bilaterally. GI: Soft. Suprapubic tenderness. Nondistended. Back: Left CVA tenderness. Musculoskeletal: Large ulcers on bilateral medial ankles. R wound extends to lateral aspect as well. Greatest area of necrotic tissue on medial aspect of R ankle. Skin: No rash. Neurologic: Alert, no focal deficit. ED Course And Treatment - Laboratory Results Result Diagrams: 10/03/16 14:31 10/03/16 14:31 O2 Sat by Pulse Oximetry: 98 Medical Decision Making Medical Decision Making: Patient with acutely worsening chronic leg wounds with necrotic tissue development. Will require admission for urgent wound care, probable antibiotics and debridement. At risk of amputation. CXR HISTORY: nonhealing leg wounds COMPARISON: 07/07/2016 FINDINGS: LUNGS: Moderate venous congestion. Patchy bibasilar airspace opacities. Right hilar prominence. PLEURA: No significant pleural effusion identified, no pneumothorax apparent. CARDIOVASCULAR: Status post median sternotomy. OSSEOUS STRUCTURES: Degenerative changes in the spine and shoulders. VISUALIZED UPPER ABDOMEN: Normal. OTHER FINDINGS: None. IMPRESSION: Moderate venous congestion. Patchy bibasilar airspace opacities. Right hilar prominence. Accepted for admission by Dr. Brandy Verdin. Disposition Discussed With : Brandy Verdin Doctor Will See Patient In The: Hospital - Disposition Disposition: HOSPITALIZED Disposition Time: 14:59 Condition: GUARDED - Clinical Impression Clinical Impression: Tissue necrosis with gangrene in peripheral vascular disease, Dehydration, Anemia - Scribe Statement The provider has reviewed the documentation as recorded by the Meli Rand Provider Attestation: All medical record entries made by the Meli were at my direction and personally dictated by me. I have reviewed the chart and agree that the record accurately reflects my personal performance of the history, physical exam, medical decision making, and the department course for this patient. I have also personally directed, reviewed, and agree with the discharge instructions and disposition.
[2016-10-03] MEDS ORDERED: Oxycodone/Acetaminophen 5/325 mg Tab PO STA (14:35)
[2016-10-03] MEDS ORDERED: Oxycodone/Acetaminophen 5/325 mg Tab ONE (14:37)
[2016-10-03 14:38] LABS: BASO # 0.1 K/uL (0.0-0.2); BASO % 0.6 % (0.0-2.0); EOS # 0.1 K/uL (0.0-0.7); EOS % 0.8 % (0.0-4.0); LYMPH # 1.5 K/uL (1.0-4.3); LYMPH % 11.5 % (20.0-40.0); MEAN CORPUSCULAR HEMOGLOBIN 19.1 pg (27.0-31.0); MEAN CORPUSCULAR HGB CONC 29.4 g/dL (33.0-37.0); MEAN PLATELET VOLUME 9.6 fL (7.2-11.7); MONO # 1.7 K/uL (0.0-0.8); MONO % 13.2 % (0.0-10.0); NEUT # 9.6 K/uL (1.8-7.0); NEUT % 73.9 % (50.0-75.0); RBC 3.49 Mil/uL (4.40-5.90); RED CELL DISTRIBUTION WIDTH 19.8 % (11.5-14.5)
[2016-10-03 14:47] LABS: ALBUMIN 3.8 g/dL (3.5-5.0); HEMOGLOBIN 6.7 g/dL (12.0-18.0); INR 1.5; MEAN CELL VOLUME 64.9 fL (80.0-94.0); PROTHROMBIN TIME 16.9 SECONDS (9.7-12.2)
--- NOTE | 2016-10-03 14:49 | RAD ---
HISTORY: nonhealing leg wounds COMPARISON: 07/07/2016 FINDINGS: LUNGS: Moderate venous congestion. Patchy bibasilar airspace opacities. Right hilar prominence. PLEURA: No significant pleural effusion identified, no pneumothorax apparent. CARDIOVASCULAR: Status post median sternotomy. OSSEOUS STRUCTURES: Degenerative changes in the spine and shoulders. VISUALIZED UPPER ABDOMEN: Normal. OTHER FINDINGS: None. IMPRESSION: Moderate venous congestion. Patchy bibasilar airspace opacities. Right hilar prominence.
[2016-10-03 14:50] LABS: ALB/GLOB RATIO 0.9 (1.0-2.1); CALCIUM 8.7 mg/dl (8.6-10.4)
[2016-10-03] MEDS ORDERED: Vancomycin 1 GM 1 GM/250 ML BAG IVPB ONE (15:11)
[2016-10-03 15:21] LABS: URINE BILIRUBIN NEGATIVE (NEGATIVE); URINE BLOOD NEGATIVE (NEGATIVE); URINE CLARITY Clear (Clear); URINE COLOR Yellow (YELLOW); URINE GLUCOSE (UA) NORMAL (Normal); URINE LEUKOCYTE ESTERASE NEG Leu/uL (Negative); URINE NITRATE NEGATIVE (NEGATIVE); URINE PROTEIN NEGATIVE (NEGATIVE); URINE UROBILINOGEN NORMAL mg/dL (0.2-1.0)
[2016-10-03] MEDS ORDERED: Metoprolol Succinate 50 mg XL Tab PO SCH (18:00)
[2016-10-03] MEDS: Enoxaparin 40 mg Syringe SC SCH (18:34)
[2016-10-03] MEDS: Piperacillin/Tazobact 2.25 GM in Sodium Chloride 100 ML IVPB SCH (18:42)
--- NOTE | 2016-10-03 20:48 | CP.PCM.CON ---
History of Present Illness - History of Present Illness History of Present Illness: Surgery: Dr. Velasquez CC: Chronic ulcers B/L LE HPI: 81M w. pmh of HTN, RI, and PVD presents w. chronic B/L LE ulcers which have been worsening over the last few weeks. Pt states that the ulcers first started back in January and gradually worsened to the point where he required stent placement in both legs this past June and July. Pt state that the wounds became stable. He states that he takes care of them daily and has a wound care nurse visit 2x/week. He states that over the last few weeks the wounds have begun to worsen, R>L. He states that the pain affects the entire leg. The pain is 10/10 at its worst and described as burning. He states that that wounds have been increasing in size and that there has been some drainage. He denies any odor. He has not other complaints. Denies DUQUE/blurred vision, no F/C, no CP/palpitations, no SOB/cough, no N/V/D. PMH: HTN, RI, PVD PSH: aortic valve replacement, gallbladder, cardiac cath, angiogram x 2 Meds: MAR reviewed NKDA Social: +Tobacco, no ETOH/drugs Fhx: Non-contributory Review of Systems - Review of Systems All systems: reviewed and no additional remarkable complaints except (HPI) Past Patient History - Past Medical History & Family History Past Medical History?: Yes - Past Social History Smoking Status: Former Smoker - CARDIAC Hx Hypertension: Yes Hx Peripheral Edema: Yes - PULMONARY Hx Respiratory Disorders: No - NEUROLOGICAL Hx Neurological Disorder: No - HEENT Hx HEENT Problems: No Other/Comment: uses eyeglasses - RENAL Hx Chronic Kidney Disease: No - ENDOCRINE/METABOLIC Hx Endocrine Disorders: No - HEMATOLOGICAL/ONCOLOGICAL Hx Anemia: Yes - INTEGUMENTARY Hx Dermatological Problems: Yes Other/Comment: Mark anterior lower leg-w/scattered open dry ulcers - MUSCULOSKELETAL/RHEUMATOLOGICAL Hx Arthritis: Yes (B/L KNEE JT L >R) Hx Falls: Yes Hx Fractures: Yes (ANKLE) - GASTROINTESTINAL Hx Gall Bladder Disease: Yes (GALLSTONES ROBIN) - GENITOURINARY/GYNECOLOGICAL Hx Genitourinary Disorders: No - PSYCHIATRIC Hx Substance Use: No - SURGICAL HISTORY Hx Cholecystectomy: Yes - ANESTHESIA Hx Anesthesia: Yes Hx Anesthesia Reactions: No Hx Malignant Hyperthermia: No Meds Allergies/Adverse Reactions: Allergies Allergy/AdvReac Type Severity Reaction Status Date / Time No Known Allergies Allergy Verified 08/25/16 20:48 - Medications Medications: Current Medications Aspirin (Aspirin Chewable) 81 mg PO DAILY [facility] Clopidogrel Bisulfate (Plavix) 75 mg PO DAILY [facility] Enoxaparin Sodium (Lovenox) 40 mg SC DAILY [facility] Last Admin: 10/03/16 18:34 Dose: 40 mg Famotidine (Pepcid) 20 mg PO DAILY [facility] Piperacillin Sod/Tazobactam (Sod 2.25 gm/ Sodium Chloride) 100 mls @ 200 mls/ hr IVPB Q6H [facility] Last Admin: 10/03/16 18:42 Dose: 200 mls/hr Vancomycin HCl 1 gm/ Sodium (Chloride) 250 mls @ 166.7 mls/hr IVPB Q12H [facility] Magnesium Hydroxide (Milk Of Magnesia) 30 ml PO DAILY PRN PRN Reason: Constipation Metoprolol Tartrate (Lopressor) 50 mg PO BID [facility] Last Admin: 10/03/16 18:34 Dose: 50 mg Oxycodone/Acetaminophen (Percocet 5/325 Mg Tab) 1 tab PO Q4H PRN PRN Reason: pain SCALE 4-10 Stop: 10/06/16 17:46 Silver Sulfadiazine (Silvadene 1% 20 Gm) 1 ea TOP DAILY [facility] Physical Exam - Constitutional Appears: Non-toxic, No Acute Distress - Head Exam Head Exam: ATRAUMATIC, NORMOCEPHALIC - Eye Exam Eye Exam: EOMI - ENT Exam ENT Exam: Mucous Membranes Moist, Normal External Ear Exam - Neck Exam Neck exam: Positive for: Full Rom - Respiratory Exam Respiratory Exam: NORMAL BREATHING PATTERN. absent: Accessory Muscle Use, Respiratory Distress - Extremities Exam Additional comments: R Leg: circumferential ulcer at level of ankle, necrotic tissue noted on anterior portion of leg, scant drainage, no odor, tender to touch L Leg: ulcer over medial portion of ankle, scant drainage, no odor, no necrotic tissue - Neurological Exam Neurological exam: Alert, Oriented x3 Results - Vital Signs Recent Vital Signs: Last Vital Signs Temp 99 F 10/03/16 19:36 Pulse 73 10/03/16 18:23 Resp 20 10/03/16 18:23 BP 123/68 10/03/16 18:23 Pulse Ox 100 10/03/16 18:23 - Labs Result Diagrams: 10/03/16 14:31 10/03/16 14:31 Labs: Laboratory Results - last 24 hr 10/03/16 15:52 Blood Type B POSITIVE Antibody Screen Negative Assessment & Plan - Assessment and Plan (Free Text) Assessment: 81M w. chronic non-healing ulcers -IV abx -local wound care -pain management -further recs per Dr. Velasquez -d/w attending Zemaitis PGY2
[2016-10-03] MEDS: Oxycodone/Acetaminophen 5/325 mg Tab PO PRN (21:08)
[2016-10-04] MEDS: Piperacillin/Tazobact 2.25 GM in Sodium Chloride 100 ML IVPB SCH ×4 (00:35→17:26)
[2016-10-04] MEDS: Oxycodone/Acetaminophen 5/325 mg Tab PO PRN ×4 (01:30→23:57)
[2016-10-04] MEDS: Enoxaparin 40 mg Syringe SC SCH (09:57)
[2016-10-04] MEDS ORDERED: Silver Sulfadiazine 1% Cream (20 gm) TOP SCH (10:00)
--- NOTE | 2016-10-04 10:42 | CP.PCM.PN ---
Subjective - Date & Time of Evaluation Date of Evaluation: 10/04/16 Time of Evaluation: 07:00 - Subjective Subjective: SURGERY NOTE FOR DR. LOPEZ 81M seen and examined at bedside. Patient complains of bilateral lower extremity pain. lower leg wrapped with dressing. Objective - Vital Signs/Intake and Output Vital Signs (last 24 hours): Temp Pulse Resp BP Pulse Ox 98 F 80 20 135/74 98 10/04/16 07:41 10/04/16 07:41 10/04/16 07:41 10/04/16 07:41 10/04/16 07:41 Intake and Output: 10/04/16 10/04/16 06:59 18:59 Intake Total 1950 Output Total 1200 Balance 750 - Medications Medications: Current Medications Aspirin (Aspirin Chewable) 81 mg PO DAILY [facility] Last Admin: 10/04/16 09:57 Dose: 81 mg Clopidogrel Bisulfate (Plavix) 75 mg PO DAILY [facility] Last Admin: 10/04/16 09:57 Dose: 75 mg Enoxaparin Sodium (Lovenox) 40 mg SC DAILY [facility] Last Admin: 10/04/16 09:57 Dose: 40 mg Famotidine (Pepcid) 20 mg PO DAILY [facility] Last Admin: 10/04/16 09:57 Dose: 20 mg Piperacillin Sod/Tazobactam (Sod 2.25 gm/ Sodium Chloride) 100 mls @ 200 mls/ hr IVPB Q6H [facility] Last Admin: 10/04/16 06:14 Dose: 200 mls/hr Vancomycin HCl 1 gm/ Sodium (Chloride) 250 mls @ 166.7 mls/hr IVPB Q12H [facility] Last Admin: 10/04/16 04:30 Dose: 166.7 mls/hr Magnesium Hydroxide (Milk Of Magnesia) 30 ml PO DAILY PRN PRN Reason: Constipation Metoprolol Tartrate (Lopressor) 50 mg PO BID [facility] Last Admin: 10/04/16 09:57 Dose: 50 mg Oxycodone/Acetaminophen (Percocet 5/325 Mg Tab) 1 tab PO Q4H PRN PRN Reason: pain SCALE 4-10 Stop: 10/06/16 17:46 Last Admin: 10/04/16 05:41 Dose: 1 tab Silver Sulfadiazine (Silvadene 1% 20 Gm) 1 ea TOP DAILY [facility] Last Admin: 10/04/16 09:56 Dose: 1 applic - Labs Labs: PT 16.9 SECONDS (9.7-12.2) H 10/03/16 14:31 INR 1.5 10/03/16 14:31 APTT 27 SECONDS (21-34) 10/03/16 14:31 - Constitutional Appears: Non-toxic, No Acute Distress - Respiratory Exam Respiratory Exam: Clear to Ausculation Bilateral, NORMAL BREATHING PATTERN - Cardiovascular Exam Cardiovascular Exam: REGULAR RHYTHM, +S1, +S2 - Extremities Exam Additional comments: lower extremity wounds wrapped with dressing, curlex, CDI Assessment and Plan - Assessment and Plan (Free Text) Assessment: 81M with chronic non-healing LE ulcer Plan: - Patient will need lower extremity duplex ultrasound Further recs discuss with Dr. Ron Barrera, PGY1
[2016-10-04 11:14] LABS: BASO # 0.1 K/uL (0.0-0.2); BASO % 0.5 % (0.0-2.0); EOS # 0.3 K/uL (0.0-0.7); EOS % 2.6 % (0.0-4.0); LYMPH % 8.8 % (20.0-40.0); MEAN CORPUSCULAR HEMOGLOBIN 21.2 pg (27.0-31.0); MEAN CORPUSCULAR HGB CONC 30.7 g/dL (33.0-37.0); MEAN PLATELET VOLUME 9.2 fL (7.2-11.7); MONO # 1.2 K/uL (0.0-0.8); MONO % 10.4 % (0.0-10.0); NEUT % 77.7 % (50.0-75.0); PLATELET COUNT 229 K/uL (130-400); RED CELL DISTRIBUTION WIDTH 22.9 % (11.5-14.5); WHITE BLOOD COUNT 11.5 K/uL (4.8-10.8)
[2016-10-04 11:23] LABS: HEMOGLOBIN 8.9 g/dL (12.0-18.0)
[2016-10-04 12:30] LABS: BASOPHIL 1 % (0-2); EOSINOPHIL 2 % (0-4); LYMPHOCYTE 11 % (20-40); MONOCYTE 12 % (0-10); NEUTROPHIL 74 % (50-75); PLATELET ESTIMATE NORMAL (NORMAL); TOTAL CELLS COUNTED 100
[2016-10-04 12:31] LABS: ANISOCYTOSIS SLIGHT; POIKILOCYTOSIS SLIGHT
[2016-10-04 12:32] LABS: HYPOCHROMIC SLIGHT; MICROCYTOSIS SLIGHT
[2016-10-04 12:33] LABS: GIANT PLATELETS PRESENT; LARGE PLATELETS PRESENT
[2016-10-04 12:34] LABS: POLYCHROMIC SLIGHT; TEARDROP CELLS SLIGHT
[2016-10-04 12:35] LABS: TARGET CELLS SLIGHT
--- NOTE | 2016-10-04 14:03 | CP.PCM.PN ---
Subjective - Date & Time of Evaluation Date of Evaluation: 10/04/16 Time of Evaluation: 09:20 - Subjective Subjective: PGY1 Medicine Note- Dr. Verdin's service: Patient is an 81 year old male with PMHx of PVD, COPD, CHF, HTN, Anemia who presented with complaint of non-healing lower extremity wounds. Patient had aortofemoral angiogram via left groin with selective catherization of right femoral artery, pathway atherectomy and stenting of right sfa on 07/12/[address] Velasquez. Patient states that he has been receiving home care services twice a week for his lower extremity wounds and on other days he just cleans the wounds with sterile saline. Patient states his wound care nurse told him he should go to the hospital as the wounds were getting worse, particularly the right leg. Patient states he was having difficulty walking due to the pain in his legs. Objective - Vital Signs/Intake and Output Vital Signs (last 24 hours): Temp Pulse Resp BP Pulse Ox 98 F 80 20 135/74 98 10/04/16 07:41 10/04/16 07:41 10/04/16 07:41 10/04/16 07:41 10/04/16 07:41 Intake and Output: 10/04/16 10/04/16 06:59 18:59 Intake Total 1950 Output Total 1200 Balance 750 - Medications Medications: Current Medications Aspirin (Aspirin Chewable) 81 mg PO DAILY [facility] Last Admin: 10/04/16 09:57 Dose: 81 mg Clopidogrel Bisulfate (Plavix) 75 mg PO DAILY [facility] Last Admin: 10/04/16 09:57 Dose: 75 mg Enoxaparin Sodium (Lovenox) 40 mg SC DAILY [facility] Last Admin: 10/04/16 09:57 Dose: 40 mg Famotidine (Pepcid) 20 mg PO DAILY [facility] Last Admin: 10/04/16 09:57 Dose: 20 mg Piperacillin Sod/Tazobactam (Sod 2.25 gm/ Sodium Chloride) 100 mls @ 200 mls/ hr IVPB Q6H [facility] Last Admin: 10/04/16 11:48 Dose: 200 mls/hr Vancomycin HCl 1 gm/ Sodium (Chloride) 250 mls @ 166.7 mls/hr IVPB Q12H [facility] Last Admin: 10/04/16 04:30 Dose: 166.7 mls/hr Magnesium Hydroxide (Milk Of Magnesia) 30 ml PO DAILY PRN PRN Reason: Constipation Metoprolol Tartrate (Lopressor) 50 mg PO BID [facility] Last Admin: 10/04/16 09:57 Dose: 50 mg Oxycodone/Acetaminophen (Percocet 5/325 Mg Tab) 1 tab PO Q4H PRN PRN Reason: pain SCALE 4-10 Stop: 10/06/16 17:46 Last Admin: 10/04/16 11:51 Dose: 1 tab Silver Sulfadiazine (Silvadene 1% 20 Gm) 1 ea TOP DAILY [facility] Last Admin: 10/04/16 09:56 Dose: 1 applic - Labs Labs: 10/04/16 11:07 PT 16.9 SECONDS (9.7-12.2) H 10/03/16 14:31 INR 1.5 10/03/16 14:31 APTT 27 SECONDS (21-34) 10/03/16 14:31 - Constitutional Appears: No Acute Distress - Head Exam Head Exam: ATRAUMATIC, NORMOCEPHALIC - Eye Exam Eye Exam: EOMI - ENT Exam ENT Exam: Mucous Membranes Moist - Respiratory Exam Respiratory Exam: Decreased Breath Sounds, NORMAL BREATHING PATTERN - Cardiovascular Exam Cardiovascular Exam: +S1, +S2 - GI/Abdominal Exam GI & Abdominal Exam: Soft, Normal Bowel Sounds. absent: Tenderness - Extremities Exam Extremities Exam: Pedal Edema Additional comments: bilateral lower extremities erythematous, pitting edema, warm to touch, medial malleolus ulcers b/l with necrotic base - Neurological Exam Neurological Exam: Alert, Awake - Psychiatric Exam Psychiatric exam: Normal Affect - Skin Skin Exam: Warm Assessment and Plan - Assessment and Plan (Free Text) Assessment: Lower extremity wounds Assessment & Plan: Afebrile ID Dr. Allison consulted- help appreciated Wound care consulted Zosyn 2.25gm IVPB Q6H (started on 10/03) Vancomycin 1g IVPB Q12H (started on 10/03) silvadene ointment topically daily urine and blood culture ordered, f/u results PVD Assessment & Plan: Vascular Surgery Dr. Velasquez consulted-check arterial duplex to evaluate lower extremity disease, may need skin graft Continue ASA and Plavix Status: Acute Leukocytosis Assessment & Plan: WBC 13.0 possible sources infection- lower extremity wounds, pt on antibiotics, will continue to monitor blood and urine cultures pending CXR moderate venous congestion, patch bibasilar airspace opacities will continue to monitor Status: Acute Anemia Assessment & Plan: Hgb 8.9 s/p transfusion 2 units PRBC Status: Acute History of Aortic Valve Replacement Assessment & Plan: Continue Plavix and ASA Status: Acute CAD (coronary artery disease) Assessment & Plan: Patient on ASA and Plavix at home, continue meds. Status: Acute HTN (hypertension) Assessment & Plan: BP controlled Continue Lopressor 25 mg PO BID Status: Acute Prophylactic measure Assessment & Plan: Pepcid, Plavix lovenox 40u sc daily percocet 1 tab q4prn magnesium hydroxide 30mg PO daily prn PT eval All medical managment as per Dr. Verdin
--- NOTE | 2016-10-04 15:30 | CP.PCM.CON ---
History of Present Illness - History of Present Illness History of Present Illness: 81M w. presents w. chronic B/L LE ulcers which have been worsening over the last few weeks. Pt states that the ulcers first started back in January and gradually worsened to the point where he required stent placement in both legs Pt state that the wounds became stable. He states that he takes care of them daily and has a wound care nurse visit 2x/week. He states that over the last few weeks the wounds have begun to worsen, R>L. He states that the pain affects the entire leg. . He states that that wounds have been increasing in size and that there has been some drainage. PMH: HTN, MN, PVD PSH: aortic valve replacement, gallbladder, cardiac cath, angiogram x 2 Meds: MAR reviewed NKDA Social: +Tobacco, no ETOH/drugs Fhx: Non-contributory Review of Systems - Review of Systems All systems: reviewed and no additional remarkable complaints except - Constitutional Constitutional: As Per HPI - EENT Eyes: absent: As Per HPI, Blind Spots, Blurred Vision, Change in Vision, Decreased Night Vision, Diplopia, Discharge, Dry Eye, Exophthalmos, Floaters, Irritation, Itchy Eyes, Loss of Peripheral Vision, Pain, Photophobia, Requires Corrective Lenses, Sees Flashes, Spots in Vision, Tunnel Vision, Other Visual Disturbances, Loss of Vision, Other Ears: absent: As Per HPI, Decreased Hearing, Ear Discharge, Ear Pain, Tinnitus, Abnormal Hearing, Disequilibrium, Dizziness, Other Nose/Mouth/Throat: absent: As Per HPI, Epistaxis, Nasal Congestion, Nasal Discharge, Nasal Obstruction, Nasal Trauma, Nose Pain, Post Nasal Drip, Sinus Pain, Sinus Pressure, Bleeding Gums, Change in Voice, Dental Pain, Dry Mouth, Dysphagia, Halitosis, Hoarsness, Lip Swelling, Mouth Lesions, Mouth Pain, Odynophagia, Sore Throat, Throat Swelling, Tongue Swelling, Facial Pain, Neck Pain, Neck Mass, Other - Cardiovascular Cardiovascular: absent: As Per HPI, Acrocyanosis, Chest Pain, Chest Pain at Rest , Chest Pain with Activity, Claudication, Diaphoresis, Dyspnea, Dyspnea on Exertion, Edema, Irregular Heart Rhythm, Pain Radiating to Arm/Neck/Jaw, Leg Edema, Leg Ulcers, Lightheadedness, Orthopnea, Palpitations, Paroxysmal Nocturnal Dyspnea, Pedal Edema, Radiating Pain, Rapid Heart Rate, Slow Heart Rate, Syncope, Other - Respiratory Respiratory: absent: As Per HPI, Cough, Dyspnea, Hemoptysis, Dyspnea on Exertion , Wheezing, Snoring, Stridor, Pain on Inspiration, Chest Congestion, Excessive Mucous Production, Change in Mucous Color, Pain with Coughing, Other - Gastrointestinal Gastrointestinal: absent: As Per HPI, Abdominal Pain, Belching, Bloating, Change in Bowel Habits, Change in Stool Character, Coffee Ground Emesis, Constipation, Cramping, Diarrhea, Dyspepsia, Dysphagia, Early Satiety, Excessive Flatus, Fecal Incontinence, Heartburn, Hematemesis, Hematochezia, Loose Stools, Melena, Nausea, Odynophagia, Temesmus, Vomiting, Other - Genitourinary Genitourinary: absent: As Per HPI, Change in Urinary Stream, Difficulty Urinating, Dysuria, Flank Pain, Hematuria, Pyuria, Nocturia, Urinary Incontinence, Urinary Frequency, Urinary Hesitance, Urinary Urgency, Voiding Freq/Small Amts, Freq UTI, Hx Renal/Bladder Calculi, Hx /Renal Surgery, Bladder Distension, Other - Musculoskeletal Musculoskeletal: As Per HPI - Integumentary Integumentary: As Per HPI - Neurological Neurological: absent: As Per HPI, Abnormal Gait, Abnormal Hearing, Abnormal Movements, Abnormal Speech, Behavioral Changes, Burning Sensations, Confusion, Convulsions, Disequilibrium, Dizziness, Numbness, Focal Weakness, Frequent Falls , Headaches, Lack of Coordination, Loss of Vision, Memory Loss, Paresthesias, Radicular Pain, Restless Legs, Sensory Deficit, Syncope, Tingling, Tremor, Vertigo, Weakness, Other Visual Disturbances, Other - Psychiatric Psychiatric: absent: As Per HPI, Abnormal Sleep Pattern, Anhedonia, Anxiety, Auditory Hallucinations, Behavioral Changes, Change in Appetite, Change in Libido, Confusion, Depression, Difficulty Concentrating, Hallucinations, Homicidal Ideation, Hopelessness, Irritability, Memory Loss, Mood Swings, Panic Attacks, Paranoia, Suicidal Ideation, Visual Hallucinations, Tactile Hallucinations, Other - Endocrine Endocrine: absent: As Per HPI, Change in Body Appearance, Change in Libido, Cold Intolorance, Deepening of Voice, Excessive Sweating, Fatigue, Flushing, Heat Intolorance, Increase in Ring/Shoe/Hat Size, Palpitations, Polydipsia, Polyphagia, Polyuria, Other - Hematologic/Lymphatic Hematologic: absent: As Per HPI, Easy Bleeding, Easy Bruising, Lymphadenopathy, Other Past Patient History - Past Medical History & Family History Past Medical History?: Yes - Past Social History Smoking Status: Former Smoker - CARDIAC Hx Hypertension: Yes Hx Peripheral Edema: Yes - PULMONARY Hx Respiratory Disorders: No - NEUROLOGICAL Hx Neurological Disorder: No - HEENT Hx HEENT Problems: No Other/Comment: uses eyeglasses - RENAL Hx Chronic Kidney Disease: No - ENDOCRINE/METABOLIC Hx Endocrine Disorders: No - HEMATOLOGICAL/ONCOLOGICAL Hx Anemia: Yes - INTEGUMENTARY Hx Dermatological Problems: Yes Other/Comment: Mark anterior lower leg-w/scattered open dry ulcers - MUSCULOSKELETAL/RHEUMATOLOGICAL Hx Arthritis: Yes (B/L KNEE JT L >R) Hx Falls: Yes Hx Fractures: Yes (ANKLE) - GASTROINTESTINAL Hx Gall Bladder Disease: Yes (GALLSTONES ROBIN) - GENITOURINARY/GYNECOLOGICAL Hx Genitourinary Disorders: No - PSYCHIATRIC Hx Substance Use: No - SURGICAL HISTORY Hx Cholecystectomy: Yes - ANESTHESIA Hx Anesthesia: Yes Hx Anesthesia Reactions: No Hx Malignant Hyperthermia: No Meds Allergies/Adverse Reactions: Allergies Allergy/AdvReac Type Severity Reaction Status Date / Time No Known Allergies Allergy Verified 08/25/16 20:48 - Medications Medications: Current Medications Aspirin (Aspirin Chewable) 81 mg PO DAILY [facility] Last Admin: 10/04/16 09:57 Dose: 81 mg Clopidogrel Bisulfate (Plavix) 75 mg PO DAILY [facility] Last Admin: 10/04/16 09:57 Dose: 75 mg Enoxaparin Sodium (Lovenox) 40 mg SC DAILY [facility] Last Admin: 10/04/16 09:57 Dose: 40 mg Famotidine (Pepcid) 20 mg PO DAILY [facility] Last Admin: 10/04/16 09:57 Dose: 20 mg Piperacillin Sod/Tazobactam (Sod 2.25 gm/ Sodium Chloride) 100 mls @ 200 mls/ hr IVPB Q6H [facility] Last Admin: 10/04/16 11:48 Dose: 200 mls/hr Vancomycin HCl 1 gm/ Sodium (Chloride) 250 mls @ 166.7 mls/hr IVPB Q12H [facility] Last Admin: 10/04/16 14:31 Dose: 166.7 mls/hr Magnesium Hydroxide (Milk Of Magnesia) 30 ml PO DAILY PRN PRN Reason: Constipation Metoprolol Tartrate (Lopressor) 50 mg PO BID [facility] Last Admin: 10/04/16 09:57 Dose: 50 mg Oxycodone/Acetaminophen (Percocet 5/325 Mg Tab) 1 tab PO Q4H PRN PRN Reason: pain SCALE 4-10 Stop: 10/06/16 17:46 Last Admin: 10/04/16 11:51 Dose: 1 tab Silver Sulfadiazine (Silvadene 1% 20 Gm) 1 ea TOP DAILY [facility] Last Admin: 10/04/16 09:56 Dose: 1 applic Physical Exam - Constitutional Appears: Non-toxic, Chronically Ill - Head Exam Head Exam: NORMOCEPHALIC - Eye Exam Eye Exam: PERRL. absent: Scleral icterus - ENT Exam ENT Exam: Mucous Membranes Dry, Normal External Ear Exam - Neck Exam Neck exam: Negative for: Lymphadenopathy - Respiratory Exam Respiratory Exam: Decreased Breath Sounds, Rhonchi - Cardiovascular Exam Cardiovascular Exam: REGULAR RHYTHM, +S1, +S2 - GI/Abdominal Exam GI & Abdominal Exam: Diminished Bowel Sounds, Soft. absent: Tenderness - Rectal Exam Rectal Exam: Deferred - Exam Exam: NORMAL INSPECTION - Extremities Exam Extremities exam: Positive for: pedal edema, tenderness, pedal pulses present. Negative for: calf tenderness - Back Exam Back exam: absent: CVA tenderness (L), CVA tenderness (R) - Neurological Exam Neurological exam: Alert, CN II-XII Intact, Oriented x3, Reflexes Normal - Psychiatric Exam Psychiatric exam: Depressed - Skin Skin Exam: Dry Additional comments: ulcers left> right mostly dry Results - Vital Signs Recent Vital Signs: Last Vital Signs Temp 98 F 10/04/16 07:41 Pulse 80 10/04/16 07:41 Resp 20 10/04/16 07:41 BP 135/74 10/04/16 07:41 Pulse Ox 98 10/04/16 07:41 - Labs Result Diagrams: 10/04/16 11:07 10/03/16 14:31 Labs: Laboratory Results - last 24 hr 10/03/16 10/04/16 15:52 11:07 WBC 11.5 H RBC 4.20 L Hgb 8.9 L D Hct 28.9 L MCV 69.0 L D MCH 21.2 L MCHC 30.7 L RDW 22.9 H Plt Count 229 MPV 9.2 Neut % (Auto) 77.7 H Lymph % (Auto) 8.8 L [place] % (Auto) 10.4 H Eos % (Auto) 2.6 Baso % (Auto) 0.5 Neut # 9.0 H Lymph # 1.0 [place] # 1.2 H Eos # 0.3 Baso # 0.1 Neutrophils % (Manual) 74 Lymphocytes % (Manual) 11 L Monocytes % (Manual) 12 H Eosinophils % (Manual) 2 Basophils % (Manual) 1 Platelet Estimate Normal Large Platelets Present Giant Platelets Present Polychromasia Slight Hypochromasia (manual) Slight Poikilocytosis (manual Slight Anisocytosis (manual) Slight Microcytosis (manual) Slight Macrocytosis (manual) Slight Target Cells Slight Tear Drop Cells Slight Blood Type B POSITIVE Antibody Screen Negative Assessment & Plan (1) Dehydration Status: Acute (2) 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
[2016-10-05] MEDS: Piperacillin/Tazobact 2.25 GM in Sodium Chloride 100 ML IVPB SCH ×5 (05:28→23:45)
[2016-10-05] MEDS: Oxycodone/Acetaminophen 5/325 mg Tab PO PRN ×3 (05:28→19:16)
--- NOTE | 2016-10-05 07:24 | HP ---
A 81 year-old male chief complaint ____ disease, non-healing wound became grossly infected, came to [facility] Emergency Room, advised admission, the patient is seen ____ peripheral vascular disease, diabetes. PHYSICAL EXAMINATION: GENERAL: The patient is awake, alert, well oriented. VITAL SIGNS: Temperature 98, Pulse 90. HEENT: Within normal limits. NECK: Supple. CHEST: Symmetric. HEART: Regular. ABDOMEN: Soft. EXTREMITIES: There is no edema. There is a large wound, right ____, necrotic ____. The patient does have vascular disease. SKIN: Ulcer on the leg. The patient is on IV antibiotic. Vascular surgery consult. Brandy Bull MD cc: [id number] TT: 10/04/2016 11:04:37 jn 10/05/2016 06:22:54
[2016-10-05 08:11] LABS: BASO # 0.1 K/uL (0.0-0.2); BASO % 0.6 % (0.0-2.0); EOS # 0.4 K/uL (0.0-0.7); EOS % 3.6 % (0.0-4.0); HEMOGLOBIN 8.4 g/dL (12.0-18.0); LYMPH # 1.3 K/uL (1.0-4.3); LYMPH % 12.9 % (20.0-40.0); MEAN CELL VOLUME 68.8 fL (80.0-94.0); MEAN CORPUSCULAR HEMOGLOBIN 21.3 pg (27.0-31.0); MEAN PLATELET VOLUME 9.4 fL (7.2-11.7); MONO # 1.1 K/uL (0.0-0.8); MONO % 11.4 % (0.0-10.0); NEUT # 7.2 K/uL (1.8-7.0); NEUT % 71.5 % (50.0-75.0); NRBC % 0.1 % (0.0-2.0); RBC 3.96 Mil/uL (4.40-5.90); RED CELL DISTRIBUTION WIDTH 23.2 % (11.5-14.5)
[2016-10-05 09:36] LABS: ALBUMIN 3.1 g/dL (3.5-5.0)
[2016-10-05 09:39] LABS: ALB/GLOB RATIO 0.8 (1.0-2.1); ALT/SGPT 44 U/L (21-72); AST/SGOT 52 U/L (17-59); BLOOD UREA NITROGEN 16 mg/dL (9-20); GFR AFRICAN-AMERICAN > 60; GFR NON-AFRICAN AMERICAN 58
[2016-10-05 09:40] LABS: CALCIUM 8.6 mg/dl (8.6-10.4); MAGNESIUM 2.2 mg/dL (1.6-2.3)
[2016-10-05] MEDS: Enoxaparin 40 mg Syringe SC SCH (10:01)
--- NOTE | 2016-10-05 10:29 | CP.PCM.PN ---
Subjective - Date & Time of Evaluation Date of Evaluation: 10/05/16 Time of Evaluation: 10:16 - Subjective Subjective: SURGERY NOTE FOR DR. LOPEZ 81M seen and examined at bedside. Patient is currently working with physical therapy. Complains of b/l LE pain. Objective - Vital Signs/Intake and Output Vital Signs (last 24 hours): Temp Pulse Resp BP Pulse Ox 98.5 F 70 20 125/62 98 10/05/16 07:43 10/05/16 07:43 10/05/16 07:43 10/05/16 07:43 10/05/16 07:43 Intake and Output: 10/05/16 10/05/16 06:59 18:59 Intake Total 1060 Output Total 500 Balance 560 - Medications Medications: Current Medications Aspirin (Aspirin Chewable) 81 mg PO DAILY [facility] Last Admin: 10/05/16 10:01 Dose: 81 mg Clopidogrel Bisulfate (Plavix) 75 mg PO DAILY [facility] Last Admin: 10/05/16 10:01 Dose: 75 mg Enoxaparin Sodium (Lovenox) 40 mg SC DAILY [facility] Last Admin: 10/05/16 10:01 Dose: 40 mg Famotidine (Pepcid) 20 mg PO DAILY [facility] Last Admin: 10/05/16 10:01 Dose: 20 mg Piperacillin Sod/Tazobactam (Sod 2.25 gm/ Sodium Chloride) 100 mls @ 200 mls/ hr IVPB Q6H [facility] Last Admin: 10/05/16 05:28 Dose: 200 mls/hr Vancomycin HCl 1 gm/ Sodium (Chloride) 250 mls @ 166.7 mls/hr IVPB Q12H [facility] Last Admin: 10/05/16 03:00 Dose: 166.7 mls/hr Magnesium Hydroxide (Milk Of Magnesia) 30 ml PO DAILY PRN PRN Reason: Constipation Metoprolol Tartrate (Lopressor) 50 mg PO BID [facility] Last Admin: 10/05/16 10:01 Dose: 50 mg Oxycodone/Acetaminophen (Percocet 5/325 Mg Tab) 1 tab PO Q4H PRN PRN Reason: pain SCALE 4-10 Stop: 10/06/16 17:46 Last Admin: 10/05/16 05:28 Dose: 1 tab - Labs Labs: 10/05/16 07:57 10/05/16 07:57 PT 16.9 SECONDS (9.7-12.2) H 10/03/16 14:31 INR 1.5 10/03/16 14:31 APTT 27 SECONDS (21-34) 10/03/16 14:31 - Constitutional Appears: Non-toxic, No Acute Distress - Respiratory Exam Respiratory Exam: Clear to Ausculation Bilateral, NORMAL BREATHING PATTERN - Cardiovascular Exam Cardiovascular Exam: REGULAR RHYTHM, +S1, +S2 - Back Exam Additional comments: b/l lower extremity wounds wrapped and dressed, dressing CDI - Neurological Exam Neurological Exam: Alert, Awake Assessment and Plan - Assessment and Plan (Free Text) Assessment: 81M with chronic non-healing LE ulcer LE duplex done in August shows Right - 50-75% stenosis distal SFA, proximal politeal, 30-49% stenosis common femoral artery Left - Plan: - Plan for future intervention Further recs discuss with Dr. Ron Barrera, PGY1
--- NOTE | 2016-10-05 13:59 | CP.PCM.PN ---
Subjective - Date & Time of Evaluation Date of Evaluation: 10/05/16 Time of Evaluation: 13:58 - Subjective Subjective: if stents are open would be time to place skin grafts duplex pending. Objective - Vital Signs/Intake and Output Vital Signs (last 24 hours): Temp Pulse Resp BP Pulse Ox 98.5 F 70 20 125/62 98 10/05/16 07:43 10/05/16 07:43 10/05/16 07:43 10/05/16 07:43 10/05/16 07:43 Intake and Output: 10/05/16 10/05/16 06:59 18:59 Intake Total 1060 Output Total 500 Balance 560 - Medications Medications: Current Medications Aspirin (Aspirin Chewable) 81 mg PO DAILY [facility] Last Admin: 10/05/16 10:01 Dose: 81 mg Clopidogrel Bisulfate (Plavix) 75 mg PO DAILY [facility] Last Admin: 10/05/16 10:01 Dose: 75 mg Enoxaparin Sodium (Lovenox) 40 mg SC DAILY [facility] Last Admin: 10/05/16 10:01 Dose: 40 mg Famotidine (Pepcid) 20 mg PO DAILY [facility] Last Admin: 10/05/16 10:01 Dose: 20 mg Piperacillin Sod/Tazobactam (Sod 2.25 gm/ Sodium Chloride) 100 mls @ 200 mls/ hr IVPB Q6H [facility] Last Admin: 10/05/16 12:37 Dose: 200 mls/hr Vancomycin HCl 1 gm/ Sodium (Chloride) 250 mls @ 166.7 mls/hr IVPB Q12H [facility] Last Admin: 10/05/16 03:00 Dose: 166.7 mls/hr Magnesium Hydroxide (Milk Of Magnesia) 30 ml PO DAILY PRN PRN Reason: Constipation Metoprolol Tartrate (Lopressor) 50 mg PO BID [facility] Last Admin: 10/05/16 10:01 Dose: 50 mg Oxycodone/Acetaminophen (Percocet 5/325 Mg Tab) 1 tab PO Q4H PRN PRN Reason: pain SCALE 4-10 Stop: 10/06/16 17:46 Last Admin: 10/05/16 05:28 Dose: 1 tab - Labs Labs: 10/05/16 07:57 10/05/16 07:57 PT 16.9 SECONDS (9.7-12.2) H 10/03/16 14:31 INR 1.5 10/03/16 14:31 APTT 27 SECONDS (21-34) 10/03/16 14:31
--- NOTE | 2016-10-05 14:39 | CP.PCM.PN ---
Subjective - Date & Time of Evaluation Date of Evaluation: 10/05/16 Time of Evaluation: 09:15 - Subjective Subjective: PGY2 Medicine Note- Dr. Verdin's service Patient seen and examined. Patient with complaint of heaviness both legs. Patient pending arterial duplex study. Discussed with wound care that pending arterial study, patient would benefit from wrapping legs with jaspal bandage to try to move fluid out of legs. Objective - Vital Signs/Intake and Output Vital Signs (last 24 hours): Temp Pulse Resp BP Pulse Ox 98.5 F 70 20 125/62 98 10/05/16 07:43 10/05/16 07:43 10/05/16 07:43 10/05/16 07:43 10/05/16 07:43 Intake and Output: 10/05/16 10/05/16 06:59 18:59 Intake Total 1060 Output Total 500 Balance 560 - Medications Medications: Current Medications Aspirin (Aspirin Chewable) 81 mg PO DAILY [facility] Last Admin: 10/05/16 10:01 Dose: 81 mg Clopidogrel Bisulfate (Plavix) 75 mg PO DAILY [facility] Last Admin: 10/05/16 10:01 Dose: 75 mg Enoxaparin Sodium (Lovenox) 40 mg SC DAILY [facility] Last Admin: 10/05/16 10:01 Dose: 40 mg Famotidine (Pepcid) 20 mg PO DAILY [facility] Last Admin: 10/05/16 10:01 Dose: 20 mg Piperacillin Sod/Tazobactam (Sod 2.25 gm/ Sodium Chloride) 100 mls @ 200 mls/ hr IVPB Q6H [facility] Last Admin: 10/05/16 12:37 Dose: 200 mls/hr Vancomycin HCl 1 gm/ Sodium (Chloride) 250 mls @ 166.7 mls/hr IVPB Q12H [facility] Last Admin: 10/05/16 13:59 Dose: 166.7 mls/hr Magnesium Hydroxide (Milk Of Magnesia) 30 ml PO DAILY PRN PRN Reason: Constipation Metoprolol Tartrate (Lopressor) 50 mg PO BID [facility] Last Admin: 10/05/16 10:01 Dose: 50 mg Oxycodone/Acetaminophen (Percocet 5/325 Mg Tab) 1 tab PO Q4H PRN PRN Reason: pain SCALE 4-10 Stop: 10/06/16 17:46 Last Admin: 10/05/16 05:28 Dose: 1 tab - Labs Labs: 10/05/16 07:57 10/05/16 07:57 PT 16.9 SECONDS (9.7-12.2) H 10/03/16 14:31 INR 1.5 10/03/16 14:31 APTT 27 SECONDS (21-34) 10/03/16 14:31 - Constitutional Appears: Non-toxic, No Acute Distress - Head Exam Head Exam: ATRAUMATIC, NORMOCEPHALIC - Eye Exam Eye Exam: EOMI - ENT Exam ENT Exam: Mucous Membranes Moist - Respiratory Exam Respiratory Exam: Clear to Ausculation Bilateral, NORMAL BREATHING PATTERN - Cardiovascular Exam Cardiovascular Exam: +S1, +S2 - GI/Abdominal Exam GI & Abdominal Exam: Soft, Normal Bowel Sounds. absent: Tenderness - Extremities Exam Extremities Exam: Pedal Edema Additional comments: mild pitting edema bilaterally, wounds weeping bilaterally, serous fluid - Neurological Exam Neurological Exam: Alert, Awake - Psychiatric Exam Psychiatric exam: Normal Affect - Skin Skin Exam: Warm Assessment and Plan - Assessment and Plan (Free Text) Assessment: Lower extremity wounds Assessment & Plan: Afebrile ID Dr. Allison consulted- help appreciated Wound care consulted Zosyn 2.25gm IVPB Q6H (started on 10/03) Vancomycin 1g IVPB Q12H (started on 10/03) silvadene ointment topically daily urine culture no growth blood culture no growth 24h PVD Assessment & Plan: Vascular Surgery Dr. Velasquez consulted-check arterial duplex to evaluate lower extremity disease, may need skin graft Continue ASA and Plavix Status: Acute Leukocytosis Assessment & Plan: WBC 10, improving possible sources infection- lower extremity wounds, pt on antibiotics, will continue to monitor blood and urine cultures negative CXR moderate venous congestion, patchy bibasilar airspace opacities will continue to monitor Status: Acute Anemia Assessment & Plan: Hgb 8.4 s/p transfusion 2 units PRBC will continue to monitor Status: Acute History of Aortic Valve Replacement Assessment & Plan: Continue Plavix and ASA Status: Acute CAD (coronary artery disease) Assessment & Plan: Patient on ASA and Plavix at home, continue meds. Status: Acute HTN (hypertension) Assessment & Plan: BP controlled Continue Lopressor 25 mg PO BID Status: Acute Prophylactic measure Assessment & Plan: Pepcid, Plavix lovenox 40u sc daily percocet 1 tab q4prn magnesium hydroxide 30mg PO daily prn PT eval All medical managment as per Dr. Verdin
--- NOTE | 2016-10-05 17:28 | CP.PCM.PN ---
Subjective - Date & Time of Evaluation Date of Evaluation: 10/05/16 Time of Evaluation: 10:00 - Subjective Subjective: cultures so far neg iv rx in progress pain less wounds ++ Objective - Vital Signs/Intake and Output Vital Signs (last 24 hours): Temp Pulse Resp BP Pulse Ox 97.8 F 73 20 148/80 98 10/05/16 15:15 10/05/16 15:15 10/05/16 15:15 10/05/16 15:15 10/05/16 15:15 Intake and Output: 10/05/16 10/05/16 06:59 18:59 Intake Total 1060 650 Output Total 500 600 Balance 560 50 - Medications Medications: Current Medications Aspirin (Aspirin Chewable) 81 mg PO DAILY [facility] Last Admin: 10/05/16 10:01 Dose: 81 mg Clopidogrel Bisulfate (Plavix) 75 mg PO DAILY [facility] Last Admin: 10/05/16 10:01 Dose: 75 mg Enoxaparin Sodium (Lovenox) 40 mg SC DAILY [facility] Last Admin: 10/05/16 10:01 Dose: 40 mg Famotidine (Pepcid) 20 mg PO DAILY [facility] Last Admin: 10/05/16 10:01 Dose: 20 mg Piperacillin Sod/Tazobactam (Sod 2.25 gm/ Sodium Chloride) 100 mls @ 200 mls/ hr IVPB Q6H [facility] Last Admin: 10/05/16 12:37 Dose: 200 mls/hr Vancomycin HCl 1 gm/ Sodium (Chloride) 250 mls @ 166.7 mls/hr IVPB Q12H [facility] Last Admin: 10/05/16 13:59 Dose: 166.7 mls/hr Magnesium Hydroxide (Milk Of Magnesia) 30 ml PO DAILY PRN PRN Reason: Constipation Metoprolol Tartrate (Lopressor) 50 mg PO BID [facility] Last Admin: 10/05/16 10:01 Dose: 50 mg Oxycodone/Acetaminophen (Percocet 5/325 Mg Tab) 1 tab PO Q4H PRN PRN Reason: pain SCALE 4-10 Stop: 10/06/16 17:46 Last Admin: 10/05/16 14:40 Dose: 1 tab - Labs Labs: 10/05/16 07:57 10/05/16 07:57 PT 16.9 SECONDS (9.7-12.2) H 10/03/16 14:31 INR 1.5 10/03/16 14:31 APTT 27 SECONDS (21-34) 10/03/16 14:31 Assessment and Plan (1) Dehydration Status: Acute (2) 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
[2016-10-06] MEDS: Piperacillin/Tazobact 2.25 GM in Sodium Chloride 100 ML IVPB SCH ×3 (05:17→17:36)
[2016-10-06 08:19] LABS: BASO # 0.1 K/uL (0.0-0.2); BASO % 0.7 % (0.0-2.0); EOS # 0.3 K/uL (0.0-0.7); EOS % 3.6 % (0.0-4.0); LYMPH % 10.6 % (20.0-40.0); MEAN CELL VOLUME 69.1 fL (80.0-94.0); MEAN CORPUSCULAR HEMOGLOBIN 21.2 pg (27.0-31.0); MEAN CORPUSCULAR HGB CONC 30.7 g/dL (33.0-37.0); MEAN PLATELET VOLUME 9.5 fL (7.2-11.7); MONO # 0.9 K/uL (0.0-0.8); MONO % 10.2 % (0.0-10.0); NEUT # 6.8 K/uL (1.8-7.0); NEUT % 74.9 % (50.0-75.0); RBC 4.23 Mil/uL (4.40-5.90); RED CELL DISTRIBUTION WIDTH 23.7 % (11.5-14.5); WHITE BLOOD COUNT 9.1 K/uL (4.8-10.8)
[2016-10-06 08:30] LABS: ALBUMIN 3.3 g/dL (3.5-5.0)
[2016-10-06 08:32] LABS: AST/SGOT 54 U/L (17-59); GFR AFRICAN-AMERICAN > 60; GFR NON-AFRICAN AMERICAN > 60
[2016-10-06 08:33] LABS: ALB/GLOB RATIO 0.8 (1.0-2.1); ALT/SGPT 45 U/L (21-72); BLOOD UREA NITROGEN 16 mg/dL (9-20)
[2016-10-06 08:34] LABS: CALCIUM 8.9 mg/dl (8.6-10.4)
[2016-10-06] MEDS: Enoxaparin 40 mg Syringe SC SCH (09:41)
--- NOTE | 2016-10-06 10:05 | CP.PCM.PN ---
Subjective - Date & Time of Evaluation Date of Evaluation: 10/06/16 Time of Evaluation: 10:02 - Subjective Subjective: Surgery: Dr. Velasquez Pt seen and examined. Continues to have discomfort in B/L LE. Objective - Vital Signs/Intake and Output Vital Signs (last 24 hours): Temp Pulse Resp BP Pulse Ox 99.4 F 76 20 142/77 98 10/06/16 08:51 10/06/16 08:51 10/06/16 08:51 10/06/16 08:51 10/06/16 08:51 Intake and Output: 10/06/16 10/06/16 06:59 18:59 Intake Total 940 Output Total 400 Balance 540 - Medications Medications: Current Medications Aspirin (Aspirin Chewable) 81 mg PO DAILY [facility] Last Admin: 10/06/16 09:41 Dose: 81 mg Clopidogrel Bisulfate (Plavix) 75 mg PO DAILY [facility] Last Admin: 10/06/16 09:41 Dose: 75 mg Enoxaparin Sodium (Lovenox) 40 mg SC DAILY [facility] Last Admin: 10/06/16 09:41 Dose: 40 mg Famotidine (Pepcid) 20 mg PO DAILY [facility] Last Admin: 10/06/16 09:41 Dose: 20 mg Piperacillin Sod/Tazobactam (Sod 2.25 gm/ Sodium Chloride) 100 mls @ 200 mls/ hr IVPB Q6H [facility] Last Admin: 10/06/16 05:17 Dose: 200 mls/hr Vancomycin HCl 1 gm/ Sodium (Chloride) 250 mls @ 166.7 mls/hr IVPB Q12H [facility] Last Admin: 10/06/16 02:27 Dose: 166.7 mls/hr Magnesium Hydroxide (Milk Of Magnesia) 30 ml PO DAILY PRN PRN Reason: Constipation Metoprolol Tartrate (Lopressor) 50 mg PO BID [facility] Last Admin: 10/06/16 09:41 Dose: 50 mg Oxycodone/Acetaminophen (Percocet 5/325 Mg Tab) 1 tab PO Q4H PRN PRN Reason: pain SCALE 4-10 Stop: 10/06/16 17:46 Last Admin: 10/05/16 19:16 Dose: 1 tab - Labs Labs: 10/06/16 08:04 10/06/16 08:04 PT 16.9 SECONDS (9.7-12.2) H 10/03/16 14:31 INR 1.5 10/03/16 14:31 APTT 27 SECONDS (21-34) 10/03/16 14:31 - Constitutional Appears: Non-toxic, No Acute Distress - Head Exam Head Exam: ATRAUMATIC, NORMOCEPHALIC - Eye Exam Eye Exam: EOMI - ENT Exam ENT Exam: Mucous Membranes Moist - Neck Exam Neck Exam: Full ROM - Respiratory Exam Respiratory Exam: NORMAL BREATHING PATTERN. absent: Accessory Muscle Use, Respiratory Distress - Extremities Exam Additional comments: B/L LE dressings in place, C/D/I, +edema - Neurological Exam Neurological Exam: Alert, Awake, Oriented x3 Assessment and Plan - Assessment and Plan (Free Text) Assessment: 81M w. chronic B/L LE ulcers -c/w local wound care -further management pending duplex evaluation of stents -d/w attending Alfredomaitis PGY2
--- NOTE | 2016-10-06 15:09 | CP.PCM.PN ---
Subjective - Date & Time of Evaluation Date of Evaluation: 10/06/16 Time of Evaluation: 09:00 - Subjective Subjective: wbc trending down on iv rx Objective - Vital Signs/Intake and Output Vital Signs (last 24 hours): Temp Pulse Resp BP Pulse Ox 99.4 F 76 20 142/77 98 10/06/16 08:51 10/06/16 08:51 10/06/16 08:51 10/06/16 11:06 10/06/16 08:51 Intake and Output: 10/06/16 10/06/16 06:59 18:59 Intake Total 940 710 Output Total 400 Balance 540 710 - Medications Medications: Current Medications Acetaminophen (Tylenol 325mg Tab) 650 mg PO Q6 PRN PRN Reason: Pain, Mild (1-3) Last Admin: 10/06/16 13:12 Dose: 650 mg Aspirin (Aspirin Chewable) 81 mg PO DAILY [facility] Last Admin: 10/06/16 09:41 Dose: 81 mg Clopidogrel Bisulfate (Plavix) 75 mg PO DAILY [facility] Last Admin: 10/06/16 09:41 Dose: 75 mg Enoxaparin Sodium (Lovenox) 40 mg SC DAILY [facility] Last Admin: 10/06/16 09:41 Dose: 40 mg Famotidine (Pepcid) 20 mg PO DAILY [facility] Last Admin: 10/06/16 09:41 Dose: 20 mg Piperacillin Sod/Tazobactam (Sod 2.25 gm/ Sodium Chloride) 100 mls @ 200 mls/ hr IVPB Q6H [facility] Last Admin: 10/06/16 12:33 Dose: 200 mls/hr Vancomycin HCl 1 gm/ Sodium (Chloride) 250 mls @ 166.7 mls/hr IVPB Q12H [facility] Last Admin: 10/06/16 14:08 Dose: 166.7 mls/hr Magnesium Hydroxide (Milk Of Magnesia) 30 ml PO DAILY PRN PRN Reason: Constipation Metoprolol Tartrate (Lopressor) 50 mg PO BID [facility] Last Admin: 10/06/16 09:41 Dose: 50 mg Oxycodone/Acetaminophen (Percocet 5/325 Mg Tab) 1 tab PO Q4H PRN PRN Reason: pain SCALE 4-10 Stop: 10/06/16 17:46 Last Admin: 10/05/16 19:16 Dose: 1 tab - Labs Labs: 10/06/16 08:04 10/06/16 08:04 PT 16.9 SECONDS (9.7-12.2) H 10/03/16 14:31 INR 1.5 10/03/16 14:31 APTT 27 SECONDS (21-34) 10/03/16 14:31 - Constitutional Appears: No Acute Distress - Head Exam Head Exam: NORMAL INSPECTION - Eye Exam Eye Exam: absent: Scleral icterus - ENT Exam ENT Exam: Mucous Membranes Dry - Neck Exam Neck Exam: absent: Lymphadenopathy - Respiratory Exam Respiratory Exam: Decreased Breath Sounds, Clear to Ausculation Bilateral - Cardiovascular Exam Cardiovascular Exam: REGULAR RHYTHM, +S1, +S2 Assessment and Plan (1) Dehydration Status: Acute (2) 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
--- NOTE | 2016-10-06 15:28 | CP.PCM.PN ---
Subjective - Date & Time of Evaluation Date of Evaluation: 10/06/16 Time of Evaluation: 09:10 - Subjective Subjective: PGY2 Medicine Note- Dr. Verdin's service Patient seen and examined. Patient with increased leg swelling today. Arterial study still pending, will be performed today per vascular lab. Objective - Vital Signs/Intake and Output Vital Signs (last 24 hours): Temp Pulse Resp BP Pulse Ox 99.4 F 76 20 142/77 98 10/06/16 08:51 10/06/16 08:51 10/06/16 08:51 10/06/16 11:06 10/06/16 08:51 Intake and Output: 10/06/16 10/06/16 06:59 18:59 Intake Total 940 710 Output Total 400 Balance 540 710 - Medications Medications: Current Medications Acetaminophen (Tylenol 325mg Tab) 650 mg PO Q6 PRN PRN Reason: Pain, Mild (1-3) Last Admin: 10/06/16 13:12 Dose: 650 mg Aspirin (Aspirin Chewable) 81 mg PO DAILY [facility] Last Admin: 10/06/16 09:41 Dose: 81 mg Clopidogrel Bisulfate (Plavix) 75 mg PO DAILY [facility] Last Admin: 10/06/16 09:41 Dose: 75 mg Enoxaparin Sodium (Lovenox) 40 mg SC DAILY [facility] Last Admin: 10/06/16 09:41 Dose: 40 mg Famotidine (Pepcid) 20 mg PO DAILY [facility] Last Admin: 10/06/16 09:41 Dose: 20 mg Piperacillin Sod/Tazobactam (Sod 2.25 gm/ Sodium Chloride) 100 mls @ 200 mls/ hr IVPB Q6H [facility] Last Admin: 10/06/16 12:33 Dose: 200 mls/hr Vancomycin HCl 1 gm/ Sodium (Chloride) 250 mls @ 166.7 mls/hr IVPB Q12H [facility] Last Admin: 10/06/16 14:08 Dose: 166.7 mls/hr Magnesium Hydroxide (Milk Of Magnesia) 30 ml PO DAILY PRN PRN Reason: Constipation Metoprolol Tartrate (Lopressor) 50 mg PO BID [facility] Last Admin: 10/06/16 09:41 Dose: 50 mg Oxycodone/Acetaminophen (Percocet 5/325 Mg Tab) 1 tab PO Q4H PRN PRN Reason: pain SCALE 4-10 Stop: 10/06/16 17:46 Last Admin: 10/05/16 19:16 Dose: 1 tab - Labs Labs: 10/06/16 08:04 10/06/16 08:04 PT 16.9 SECONDS (9.7-12.2) H 10/03/16 14:31 INR 1.5 10/03/16 14:31 APTT 27 SECONDS (21-34) 10/03/16 14:31 - Constitutional Appears: Non-toxic, No Acute Distress - Head Exam Head Exam: ATRAUMATIC, NORMOCEPHALIC - Eye Exam Eye Exam: EOMI - ENT Exam ENT Exam: Mucous Membranes Moist - Respiratory Exam Respiratory Exam: Decreased Breath Sounds, NORMAL BREATHING PATTERN - Cardiovascular Exam Cardiovascular Exam: +S1, +S2 - GI/Abdominal Exam GI & Abdominal Exam: Soft, Normal Bowel Sounds. absent: Tenderness - Extremities Exam Extremities Exam: Pedal Edema Additional comments: bilateral 2+ pitting edema lower extremity wounds wrapped, yellow serous fluid drainage noted - Neurological Exam Neurological Exam: Alert, Awake - Psychiatric Exam Psychiatric exam: Normal Affect, Normal Mood - Skin Skin Exam: Warm Assessment and Plan - Assessment and Plan (Free Text) Assessment: Lower extremity wounds Assessment & Plan: one dose lasix 40mg given today to help with swelling Afebrile ID Dr. Allison consulted- help appreciated Wound care consulted Zosyn 2.25gm IVPB Q6H (started on 10/03) Vancomycin 1g IVPB Q12H (started on 10/03) silvadene ointment topically daily urine culture no growth blood culture no growth 24h PVD Assessment & Plan: Vascular Surgery Dr. Velasquez consulted-check arterial duplex to evaluate lower extremity disease, may need skin graft Continue ASA and Plavix Status: Acute Leukocytosis Assessment & Plan: WBC 9.1, improving possible sources infection- lower extremity wounds, pt on antibiotics, will continue to monitor blood and urine cultures negative CXR moderate venous congestion, patchy bibasilar airspace opacities will continue to monitor Status: Acute Anemia Assessment & Plan: Hgb 9.0 s/p transfusion 2 units PRBC will continue to monitor Status: Acute History of Aortic Valve Replacement Assessment & Plan: Continue Plavix and ASA Status: Acute CAD (coronary artery disease) Assessment & Plan: Patient on ASA and Plavix at home, continue meds. Status: Acute HTN (hypertension) Assessment & Plan: BP controlled Continue Lopressor 25 mg PO BID Status: Acute Prophylactic measure Assessment & Plan: Pepcid, Plavix lovenox 40u sc daily percocet 1 tab q4prn magnesium hydroxide 30mg PO daily prn PT eval All medical managment as per Dr. Verdin
[2016-10-07] MEDS: Piperacillin/Tazobact 2.25 GM in Sodium Chloride 100 ML IVPB SCH ×2 (00:15→05:13)
[2016-10-07 07:30] LABS: BASO # 0.1 K/uL (0.0-0.2); BASO % 0.6 % (0.0-2.0); EOS # 0.3 K/uL (0.0-0.7); EOS % 3.8 % (0.0-4.0); HEMOGLOBIN 7.8 g/dL (12.0-18.0); LYMPH # 0.9 K/uL (1.0-4.3); LYMPH % 10.5 % (20.0-40.0); MEAN CORPUSCULAR HEMOGLOBIN 21.2 pg (27.0-31.0); MEAN CORPUSCULAR HGB CONC 30.7 g/dL (33.0-37.0); MEAN PLATELET VOLUME 9.3 fL (7.2-11.7); MONO % 11.4 % (0.0-10.0); NEUT # 6.4 K/uL (1.8-7.0); NEUT % 73.7 % (50.0-75.0); RBC 3.68 Mil/uL (4.40-5.90); RED CELL DISTRIBUTION WIDTH 24.1 % (11.5-14.5); WHITE BLOOD COUNT 8.7 K/uL (4.8-10.8)
[2016-10-07 07:47] LABS: ALBUMIN 2.8 g/dL (3.5-5.0)
[2016-10-07 07:50] LABS: ALB/GLOB RATIO 0.8 (1.0-2.1); ALT/SGPT 59 U/L (21-72); AST/SGOT 64 U/L (17-59); BLOOD UREA NITROGEN 15 mg/dL (9-20); GFR AFRICAN-AMERICAN > 60; GFR NON-AFRICAN AMERICAN 53
[2016-10-07 07:51] LABS: CALCIUM 8.6 mg/dl (8.6-10.4)
[2016-10-07] MEDS: Enoxaparin 40 mg Syringe SC SCH (09:40)
--- NOTE | 2016-10-07 10:55 | VASCLAB ---
PROCEDURE: HISTORY: Stent patency evaluation. COMPARISON: None available. TECHNIQUE: Grayscale and duplex Doppler evaluation of the bilateral common femoral, femoral, profunda femoral, popliteal, posterior tibial, anterior tibial and dorsalis pedis arteries was performed. Report prepared by VANNESA David, RVT FINDINGS: RIGHT LOWER EXTREMITY: * Common Femoral Artery: Peak Systolic Velocity - 158: Doppler Waveform: Biphasic: Plaque description - Heterogeneous * Profunda Femoral Artery: Peak Systolic Velocity - 204: Doppler Waveform: Triphasic.: Plaque description - Heterogeneous * Femoral Artery: Vascular stent noted. o Proximal Segment: Peak Systolic Velocity - 159: Doppler Waveform: Biphasic: Plaque description - Calcific o Middle Segment: Peak Systolic Velocity - 123: Doppler Waveform: Monophasic: Plaque description - Calcific o Distal Segment: Peak Systolic Velocity - 472: Doppler Waveform: Monophasic: Plaque description - Calcific * Popliteal Artery o Proximal Segment: Peak Systolic Velocity - 217: Doppler Waveform: Biphasic: Plaque description - Heterogeneous o Middle Segment: Peak Systolic Velocity - 79: Doppler Waveform: Monophasic: Plaque description - Heterogeneous o Distal Segment: Peak Systolic Velocity - 168: Doppler Waveform: Monophasic: Plaque description - Heterogeneous * Posterior Tibial Artery: Peak Systolic Velocity - 57: Doppler Waveform: Monophasic: Plaque description - Heterogeneous * Anterior Tibial Artery: Peak Systolic Velocity - 0: Doppler Waveform: Absent: Plaque description - Heterogeneous * Dorsalis Pedis Artery: Not optimally obtained. LEFT LOWER EXTREMITY: * Common Femoral Artery: Peak Systolic Velocity - 178: Doppler Waveform: Biphasic: Plaque description - Heterogeneous * Profunda Femoral Artery: Peak Systolic Velocity - 180: Doppler Waveform: Triphasic: Plaque description - Heterogeneous * Femoral Artery: Vascular stent noted. o Proximal Segment: Peak Systolic Velocity - 308: Doppler Waveform: Biphasic: Plaque description - Heterogeneous o Middle Segment: Peak Systolic Velocity - 165: Doppler Waveform: Monophasic: Plaque description - Heterogeneous o Distal Segment: Peak Systolic Velocity - 182: Doppler Waveform: Monophasic: Plaque description - Heterogeneous * Popliteal Artery o Proximal Segment: Peak Systolic Velocity - 342: Doppler Waveform: Monophasic: Plaque description - Heterogeneous o Middle Segment: Peak Systolic Velocity - 173: Doppler Waveform: Monophasic: Plaque description - Heterogeneous o Distal Segment: Peak Systolic Velocity - 117: Doppler Waveform: Monophasic: Plaque description - Heterogeneous * Posterior Tibial Artery: Peak Systolic Velocity - 87: Doppler Waveform: Monophasic: Plaque description - Heterogeneous * Anterior Tibial Artery: Peak Systolic Velocity - 0: Doppler Waveform: Absent: Plaque description - Heterogeneous * Dorsalis Pedis Artery: Not optimally obtained. OTHER FINDINGS: Patent bilateral superficial femoral artery stents noted. Unable to image bilateral distal anterior, posterior and dorsalis pedis arteries due to bandage on ulcers. IMPRESSION: RIGHT: Possible occlusion of the right mid anterior tibial artery. Greater than 75% stenosis of the right distal superficial femoral artery 50-75% stenosis of the right proximal profunda femoral and proximal popliteal arteries. LEFT: Possible occlusion of the left mid anterior tibial artery. 50-75% stenosis of the left proximal superficial femoral and proximal popliteal arteries. 30-49% stenosis on the left common femoral, proximal profunda femoral, distal superficial femoral and mid popliteal arteries.
[2016-10-07] MEDS ORDERED: Piperacill/Tazo 2.25gm in Dex 2.25 GM/50 ML BAG IVPB SCH (11:00)
[2016-10-07] MEDS: Piperacill/Tazo 2.25gm in Dex 2.25 GM/50 ML BAG IVPB SCH ×3 (11:34→22:00)
--- NOTE | 2016-10-07 11:47 | CP.PCM.PN ---
Subjective - Date & Time of Evaluation Date of Evaluation: 10/07/16 Time of Evaluation: 11:46 - Subjective Subjective: stents open but stenotic will debride in OR sunday tranfusion ordered duw to need for further Rx Objective - Vital Signs/Intake and Output Vital Signs (last 24 hours): Temp Pulse Resp BP Pulse Ox 98 F 76 20 143/78 98 10/07/16 08:01 10/07/16 08:01 10/07/16 08:01 10/07/16 08:01 10/07/16 08:01 Intake and Output: 10/07/16 10/07/16 06:59 18:59 Intake Total 800 Balance 800 - Medications Medications: Current Medications Acetaminophen (Tylenol 325mg Tab) 650 mg PO Q6 PRN PRN Reason: Pain, Mild (1-3) Last Admin: 10/07/16 08:26 Dose: 650 mg Aspirin (Aspirin Chewable) 81 mg PO DAILY [facility] Last Admin: 10/07/16 09:40 Dose: 81 mg Clopidogrel Bisulfate (Plavix) 75 mg PO DAILY [facility] Last Admin: 10/07/16 09:40 Dose: 75 mg Enoxaparin Sodium (Lovenox) 40 mg SC DAILY [facility] Last Admin: 10/07/16 09:40 Dose: 40 mg Famotidine (Pepcid) 20 mg PO DAILY [facility] Last Admin: 10/07/16 09:39 Dose: 20 mg Vancomycin HCl 1 gm/ Sodium (Chloride) 250 mls @ 166.7 mls/hr IVPB Q12H [facility] Last Admin: 10/07/16 03:10 Dose: 166.7 mls/hr Piperacillin Sod/Tazobactam Sod (Zosyn 2.25 Gm Iv Premix) 2.25 gm in 50 mls @ 200 mls/hr IVPB Q6H [facility] Last Admin: 10/07/16 11:34 Dose: 200 mls/hr Magnesium Hydroxide (Milk Of Magnesia) 30 ml PO DAILY PRN PRN Reason: Constipation Metoprolol Tartrate (Lopressor) 50 mg PO BID [facility] Last Admin: 10/07/16 09:39 Dose: 50 mg - Labs Labs: 10/07/16 07:15 10/07/16 07:11 PT 16.9 SECONDS (9.7-12.2) H 10/03/16 14:31 INR 1.5 10/03/16 14:31 APTT 27 SECONDS (21-34) 10/03/16 14:31
--- NOTE | 2016-10-07 15:20 | CARD ---
APPROVED REPORT EKG Measurement Heart [id number] <Conclusion> Normal sinus rhythm Minimal voltage criteria for LVH, may be normal variant Nonspecific T wave abnormality Abnormal ECG
[2016-10-07] MEDS: Magnesium Hydroxide Susp 30 ml UD PO PRN (21:35)
[2016-10-08] MEDS: Piperacill/Tazo 2.25gm in Dex 2.25 GM/50 ML BAG IVPB SCH ×4 (04:24→22:19)
--- NOTE | 2016-10-08 07:18 | CP.PCM.PN ---
Subjective - Date & Time of Evaluation Date of Evaluation: 10/08/16 Time of Evaluation: 07:15 - Subjective Subjective: Surgery: Dr. Velasquez Pt seen and examined. Continues to have discomfort in B/L LE. Transfused 1 unit PRBCs yesterday OR tomorrow for debridement NPO at midnight Hold lovenox f/u AM cbc transfuse if needed consent in chart, risks/benefits d/w pt d/w attending Carisa PGY2 Objective - Vital Signs/Intake and Output Vital Signs (last 24 hours): Temp Pulse Resp BP Pulse Ox 98.4 F 74 20 142/80 97 10/08/16 00:00 10/08/16 00:00 10/08/16 00:00 10/08/16 00:00 10/08/16 00:00 Intake and Output: 10/08/16 10/08/16 06:59 18:59 Intake Total 2310 Output Total 600 Balance 1710 - Medications Medications: Current Medications Acetaminophen (Tylenol 325mg Tab) 650 mg PO Q6 PRN PRN Reason: Pain, Mild (1-3) Last Admin: 10/07/16 17:19 Dose: 650 mg Aspirin (Aspirin Chewable) 81 mg PO DAILY [facility] Last Admin: 10/07/16 09:40 Dose: 81 mg Clopidogrel Bisulfate (Plavix) 75 mg PO DAILY [facility] Last Admin: 10/07/16 09:40 Dose: 75 mg Enoxaparin Sodium (Lovenox) 40 mg SC DAILY [facility] Last Admin: 10/07/16 09:40 Dose: 40 mg Famotidine (Pepcid) 20 mg PO DAILY [facility] Last Admin: 10/07/16 09:39 Dose: 20 mg Vancomycin HCl 1 gm/ Sodium (Chloride) 250 mls @ 166.7 mls/hr IVPB Q12H [facility] Last Admin: 10/08/16 02:37 Dose: 166.7 mls/hr Piperacillin Sod/Tazobactam Sod (Zosyn 2.25 Gm Iv Premix) 2.25 gm in 50 mls @ 200 mls/hr IVPB Q6H [facility] Last Admin: 10/08/16 04:24 Dose: 200 mls/hr Magnesium Hydroxide (Milk Of Magnesia) 30 ml PO DAILY PRN PRN Reason: Constipation Last Admin: 10/07/16 21:35 Dose: 30 ml Metoprolol Tartrate (Lopressor) 50 mg PO BID [facility] Last Admin: 10/07/16 17:19 Dose: 50 mg - Labs Labs: 10/07/16 07:15 10/07/16 07:11 PT 16.9 SECONDS (9.7-12.2) H 10/03/16 14:31 INR 1.5 10/03/16 14:31 APTT 27 SECONDS (21-34) 10/03/16 14:31
[2016-10-08 09:23] LABS: BASO # 0.1 K/uL (0.0-0.2); EOS # 0.4 K/uL (0.0-0.7); EOS % 5.3 % (0.0-4.0); HEMOGLOBIN 9.7 g/dL (12.0-18.0); LYMPH # 1.2 K/uL (1.0-4.3); LYMPH % 15.2 % (20.0-40.0); MEAN CELL VOLUME 71.1 fL (80.0-94.0); MEAN CORPUSCULAR HEMOGLOBIN 22.1 pg (27.0-31.0); MEAN PLATELET VOLUME 9.5 fL (7.2-11.7); MONO # 0.8 K/uL (0.0-0.8); MONO % 9.7 % (0.0-10.0); NEUT # 5.5 K/uL (1.8-7.0); NEUT % 68.8 % (50.0-75.0); NRBC % 0.1 % (0.0-2.0); RBC 4.39 Mil/uL (4.40-5.90); RED CELL DISTRIBUTION WIDTH 24.3 % (11.5-14.5)
[2016-10-08 10:03] LABS: ALB/GLOB RATIO 0.7 (1.0-2.1); AST/SGOT 48 U/L (17-59); GFR AFRICAN-AMERICAN > 60; GFR NON-AFRICAN AMERICAN > 60
[2016-10-08 10:04] LABS: ALT/SGPT 51 U/L (21-72); BLOOD UREA NITROGEN 14 mg/dL (9-20); CALCIUM 9.1 mg/dl (8.6-10.4)
--- NOTE | 2016-10-08 15:49 | CP.PCM.PN ---
Subjective - Date & Time of Evaluation Date of Evaluation: 10/08/16 Time of Evaluation: 08:00 - Subjective Subjective: Continues to have discomfort in B/L LE. Transfused 1 unit PRBCs yesterday OR tomorrow for debridement NPO at midnight Hold lovenox [facility]IOT[facility] Objective - Vital Signs/Intake and Output Vital Signs (last 24 hours): Temp Pulse Resp BP Pulse Ox 98 F 78 20 149/72 98 10/08/16 07:51 10/08/16 07:51 10/08/16 07:51 10/08/16 07:51 10/08/16 07:51 Intake and Output: 10/08/16 10/08/16 06:59 18:59 Intake Total 2310 800 Output Total 600 Balance 1710 800 - Medications Medications: Current Medications Acetaminophen (Tylenol 325mg Tab) 650 mg PO Q6 PRN PRN Reason: Pain, Mild (1-3) Last Admin: 10/08/16 08:41 Dose: 650 mg Aspirin (Aspirin Chewable) 81 mg PO DAILY [facility] Last Admin: 10/08/16 09:52 Dose: 81 mg Clopidogrel Bisulfate (Plavix) 75 mg PO DAILY [facility] Last Admin: 10/08/16 09:52 Dose: 75 mg Enoxaparin Sodium (Lovenox) 40 mg SC DAILY [facility] Last Admin: 10/07/16 09:40 Dose: 40 mg Famotidine (Pepcid) 20 mg PO DAILY [facility] Last Admin: 10/08/16 09:52 Dose: 20 mg Vancomycin HCl 1 gm/ Sodium (Chloride) 250 mls @ 166.7 mls/hr IVPB Q12H [facility] Last Admin: 10/08/16 02:37 Dose: 166.7 mls/hr Piperacillin Sod/Tazobactam Sod (Zosyn 2.25 Gm Iv Premix) 2.25 gm in 50 mls @ 200 mls/hr IVPB Q6H [facility] Last Admin: 10/08/16 10:03 Dose: 200 mls/hr Magnesium Hydroxide (Milk Of Magnesia) 30 ml PO DAILY PRN PRN Reason: Constipation Last Admin: 10/07/16 21:35 Dose: 30 ml Metoprolol Tartrate (Lopressor) 50 mg PO BID [facility] Last Admin: 10/08/16 09:52 Dose: 50 mg - Labs Labs: 10/08/16 09:03 10/08/16 09:03 PT 16.9 SECONDS (9.7-12.2) H 10/03/16 14:31 INR 1.5 10/03/16 14:31 APTT 27 SECONDS (21-34) 10/03/16 14:31 - Constitutional Appears: Non-toxic, Chronically Ill - Head Exam Head Exam: NORMOCEPHALIC - Eye Exam Eye Exam: PERRL. absent: Scleral icterus - ENT Exam ENT Exam: Mucous Membranes Dry, Normal External Ear Exam - Neck Exam Neck Exam: absent: Lymphadenopathy - Respiratory Exam Respiratory Exam: Decreased Breath Sounds, Clear to Ausculation Bilateral - Cardiovascular Exam Cardiovascular Exam: REGULAR RHYTHM - GI/Abdominal Exam GI & Abdominal Exam: Distended, Soft. 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
[2016-10-08] MEDS: Magnesium Hydroxide Susp 30 ml UD PO PRN (17:55)
[2016-10-09] MEDS: Piperacill/Tazo 2.25gm in Dex 2.25 GM/50 ML BAG IVPB SCH ×4 (04:23→22:09)
[2016-10-09 08:16] LABS: BASO % 0.5 % (0.0-2.0); EOS # 0.3 K/uL (0.0-0.7); EOS % 2.8 % (0.0-4.0); LYMPH # 1.3 K/uL (1.0-4.3); MEAN CELL VOLUME 70.2 fL (80.0-94.0); MEAN CORPUSCULAR HEMOGLOBIN 21.8 pg (27.0-31.0); MEAN CORPUSCULAR HGB CONC 31.1 g/dL (33.0-37.0); MEAN PLATELET VOLUME 9.7 fL (7.2-11.7); MONO # 0.8 K/uL (0.0-0.8); MONO % 8.7 % (0.0-10.0); NEUT # 6.5 K/uL (1.8-7.0); NRBC % 0.1 % (0.0-2.0); RBC 4.14 Mil/uL (4.40-5.90); RED CELL DISTRIBUTION WIDTH 24.5 % (11.5-14.5)
[2016-10-09 08:22] LABS: INR 1.3
[2016-10-09 08:41] LABS: GFR AFRICAN-AMERICAN > 60; GFR NON-AFRICAN AMERICAN > 60
[2016-10-09 08:42] LABS: ALB/GLOB RATIO 0.7 (1.0-2.1); ALT/SGPT 50 U/L (21-72); AST/SGOT 54 U/L (17-59); BLOOD UREA NITROGEN 16 mg/dL (9-20); CALCIUM 9.2 mg/dl (8.6-10.4)
[2016-10-09] MEDS ORDERED: Sodium Chloride 0.9% 500 ML IV ONE (09:25)
[2016-10-09] MEDS ORDERED: Propofol 10 mg/ml Inj (20 ML) ONE (09:43)
[2016-10-09] MEDS ORDERED: Midazolam 2 MG/2 ML VIAL ONE (09:43)
--- NOTE | 2016-10-09 10:04 | CP.PCM.PN ---
Subjective - Date & Time of Evaluation Date of Evaluation: 10/09/16 Time of Evaluation: 07:40 - Subjective Subjective: PGY2 Medicine Note- Dr. Verdin's service Patient seen and examined. No overnight events per nursing. Patient is resting comfortably. Scheduled for OR today for bilateral lower extremity ulcer debridement. Denies f/c, chest pain, SOB, n/v, d/c, dysuria, or any additional complaints. Objective - Vital Signs/Intake and Output Vital Signs (last 24 hours): Temp Pulse Resp BP Pulse Ox 97.9 F 66 20 155/75 H 98 10/09/16 07:43 10/09/16 07:43 10/09/16 07:43 10/09/16 07:43 10/09/16 07:43 Intake and Output: 10/09/16 10/09/16 06:59 18:59 Intake Total 1130 Balance 1130 - Medications Medications: Current Medications Acetaminophen (Tylenol 325mg Tab) 650 mg PO Q6 PRN PRN Reason: Pain, Mild (1-3) Last Admin: 10/09/16 03:53 Dose: 650 mg Famotidine (Pepcid) 20 mg PO DAILY [facility] Last Admin: 10/08/16 09:52 Dose: 20 mg Vancomycin HCl 1 gm/ Sodium (Chloride) 250 mls @ 166.7 mls/hr IVPB Q12H [facility] Last Admin: 10/09/16 02:26 Dose: 166.7 mls/hr Piperacillin Sod/Tazobactam Sod (Zosyn 2.25 Gm Iv Premix) 2.25 gm in 50 mls @ 200 mls/hr IVPB Q6H [facility] Last Admin: 10/09/16 04:23 Dose: 200 mls/hr Magnesium Hydroxide (Milk Of Magnesia) 30 ml PO DAILY PRN PRN Reason: Constipation Last Admin: 10/08/16 17:55 Dose: 30 ml Metoprolol Tartrate (Lopressor) 50 mg PO BID [facility] Last Admin: 10/08/16 17:51 Dose: 50 mg - Labs Labs: 10/09/16 08:07 10/09/16 08:07 PT 15.0 SECONDS (9.7-12.2) H 10/09/16 08:07 INR 1.3 10/09/16 08:07 APTT 34 SECONDS (21-34) 10/09/16 08:07 - Additional Findings Additional findings: - Constitutional Appears: Non-toxic, No Acute Distress - Head Exam Head Exam: ATRAUMATIC, NORMOCEPHALIC - Eye Exam Eye Exam: EOMI - ENT Exam ENT Exam: Mucous Membranes Moist - Respiratory Exam Respiratory Exam: Decreased Breath Sounds, NORMAL BREATHING PATTERN - Cardiovascular Exam Cardiovascular Exam: +S1, +S2 - GI/Abdominal Exam GI & Abdominal Exam: Soft, Normal Bowel Sounds. absent: Tenderness - Extremities Exam Extremities Exam: Pedal Edema Additional comments: lower extremity wounds wrapped, yellow serous fluid drainage noted - Neurological Exam Neurological Exam: Alert, Awake - Psychiatric Exam Psychiatric exam: Normal Affect, Normal Mood - Skin Skin Exam: Warm Assessment and Plan - Assessment and Plan (Free Text) Assessment: Lower extremity wounds Assessment & Plan: 10/09: patient scheduled for bilateral lower extremity ulcer debridement with versajet. Cleared from surgical standpoint per surgery team. 10/06: one dose lasix 40mg given today to help with swelling Afebrile ID Dr. Allison consulted- help appreciated Wound care consulted Zosyn 2.25gm IVPB Q6H (started on 10/03) Vancomycin 1g IVPB Q12H (started on 10/03) silvadene ointment topically daily urine culture no growth blood culture no growth 24h PVD Assessment & Plan: Vascular Surgery Dr. Velasquez consulted-check arterial duplex to evaluate lower extremity disease, may need skin graft Continue ASA and Plavix Status: Acute Leukocytosis Assessment & Plan: 10/09: WBC 9, improving. Vancomycin 1gm ivpb q12 (started 10/04); Zosyn 2.25Gm IVPB Q6H (started 10/07). possible sources infection- lower extremity wounds, pt on antibiotics, will continue to monitor blood and urine cultures negative CXR moderate venous congestion, patchy bibasilar airspace opacities will continue to monitor Status: Acute Anemia Assessment & Plan: 10/09: Hgb 9 Hgb 9.0 s/p transfusion 2 units PRBC will continue to monitor Status: Acute History of Aortic Valve Replacement Assessment & Plan: Hold Plavix and ASA for surgery Status: Acute CAD (coronary artery disease) Assessment & Plan: Patient on ASA and Plavix at home, held for surgery Status: Acute HTN (hypertension) Assessment & Plan: BP controlled Continue Lopressor 50 mg PO BID Status: Acute Prophylactic measure Assessment & Plan: Pepcid Held Plavix Held lovenox 40u sc daily percocet 1 tab q4prn magnesium hydroxide 30mg PO daily prn PT eval -> recommend CARROL. All medical managment as per Dr. Verdin
[2016-10-09] MEDS ORDERED: Rocuronium 10 mg/ml (5 ml) ONE (10:14)
[2016-10-09] MEDS ORDERED: Succinylcholine Chloride 20 mg/ml Syr (5 ml) IV ONE (10:14)
--- NOTE | 2016-10-09 10:17 | PCM.SURG1 ---
Surgeon's Initial Post Op Note - Surgeon's Notes Surgeon: Dr Velasquez Operations Scheduler: Dr Ritter PGY2 Type of Anesthesia: General Endo Pre-Operative Diagnosis: bilateral lower extremity ulcers Operative Findings: as above Post-Operative Diagnosis: as above Operation Performed: bilateral lower extremity ulcer debridement with versajet Specimen/Specimens Removed: debrided skin Estimated Blood Loss: EBL {In ML}: 5 Blood Products Given: N/A Drains Used: No Drains Post-Op Condition: Good Date of Surgery/Procedure: 10/09/16 Time of Surgery/Procedure: 10:16
[2016-10-09] MEDS: HYDROmorphone 0.5 mg/0.5 ml ISec IVP PRN ×4 (10:30→11:15)
[2016-10-09] MEDS ORDERED: Lactated Ringer's 1,000 ML IV SCH (10:30)
--- NOTE | 2016-10-09 11:45 | OP ---
PROCEDURE DATE: 10/09/2016 PREOPERATIVE DIAGNOSIS: Bilateral severe leg ulcers. PROCEDURE CARRIED OUT: Debridement of skin, subcutaneous tissue bilaterally. SURGEON: Royce Velasquez Jr., MD CARD ASSEMBLER: Dr. Ritter ANESTHESIOLOGIST: Dr. Nolan INDICATIONS: The patient is an elderly man with a history of peripheral vascular disease, recent handy luation of stents. His stents are open, but stenotic. The patient has large ulcers, right worse harmony n left. Photographs were taken. OPERATIVE FINDINGS: Skin and subcutaneous tissues were debrided. This was primarily on the medial a spect. It will take some time to recover, but eventually should heal. OPERATION CARRIED OUT: Debridement of skin and subcutaneous tissue, both sharply, with specimens sub mitted and also with VersaJet. Royce Velasquez Jr., MD cc: [id number] TT: 10/09/2016 11:44:30 en
[2016-10-09 16:41] VITALS: RESP 20
[2016-10-09] MEDS: Oxycodone/Acetaminophen 5/325 mg Tab PO PRN (22:21)
[2016-10-10] MEDS: Piperacill/Tazo 2.25gm in Dex 2.25 GM/50 ML BAG IVPB SCH ×4 (05:46→22:12)
[2016-10-10] MEDS: Oxycodone/Acetaminophen 5/325 mg Tab PO PRN ×2 (05:50→14:20)
--- NOTE | 2016-10-10 11:13 | CP.PCM.PN ---
Subjective - Date & Time of Evaluation Date of Evaluation: 10/10/16 Time of Evaluation: 07:15 - Subjective Subjective: PGY2 Medicine Note- Dr. Verdin's service Patient seen and examined. No overnight events per nursing. Patient is resting comfortably s/p bilateral lower extremity ulcer debridement on 10/09. Denies f/c , chest pain, SOB, n/v, d/c, dysuria, or any additional complaints. Pt for PICC insertion tomorrow 10/11, prior to DC to Rehab. Objective - Vital Signs/Intake and Output Vital Signs (last 24 hours): Temp Pulse Resp BP Pulse Ox 98.2 F 80 20 128/69 98 10/10/16 08:00 10/10/16 08:00 10/10/16 08:00 10/10/16 08:00 10/10/16 08:00 Intake and Output: 10/10/16 10/10/16 06:59 18:59 Intake Total 1050 Output Total 1500 Balance -450 - Medications Medications: Current Medications Acetaminophen (Tylenol 325mg Tab) 650 mg PO Q6 PRN PRN Reason: Pain, Mild (1-3) Last Admin: 10/09/16 03:53 Dose: 650 mg Famotidine (Pepcid) 20 mg PO DAILY [facility] Last Admin: 10/10/16 10:22 Dose: 20 mg Vancomycin HCl 1 gm/ Sodium (Chloride) 250 mls @ 166.7 mls/hr IVPB Q12H [facility] Last Admin: 10/10/16 03:35 Dose: 166.7 mls/hr Piperacillin Sod/Tazobactam Sod (Zosyn 2.25 Gm Iv Premix) 2.25 gm in 50 mls @ 200 mls/hr IVPB Q6H [facility] Last Admin: 10/10/16 05:46 Dose: 200 mls/hr Magnesium Hydroxide (Milk Of Magnesia) 30 ml PO DAILY PRN PRN Reason: Constipation Last Admin: 10/08/16 17:55 Dose: 30 ml Metoprolol Tartrate (Lopressor) 50 mg PO BID [facility] Last Admin: 10/10/16 10:22 Dose: 50 mg Oxycodone/Acetaminophen (Percocet 5/325 Mg Tab) 1 tab PO Q4H PRN PRN Reason: Pain, Mild (1-3) Stop: 10/12/16 10:19 Last Admin: 10/10/16 05:50 Dose: 1 tab - Labs Labs: 10/09/16 08:07 10/09/16 08:07 PT 15.0 SECONDS (9.7-12.2) H 10/09/16 08:07 INR 1.3 10/09/16 08:07 APTT 34 SECONDS (21-34) 10/09/16 08:07 - Additional Findings Additional findings: - Constitutional Appears: Non-toxic, No Acute Distress - Head Exam Head Exam: ATRAUMATIC, NORMOCEPHALIC - Eye Exam Eye Exam: EOMI - ENT Exam ENT Exam: Mucous Membranes Moist - Respiratory Exam Respiratory Exam: Decreased Breath Sounds, NORMAL BREATHING PATTERN - Cardiovascular Exam Cardiovascular Exam: +S1, +S2 - GI/Abdominal Exam GI & Abdominal Exam: Soft, Normal Bowel Sounds. absent: Tenderness - Extremities Exam Extremities Exam: Pedal Edema Additional comments: lower extremity wounds wrapped, CDI - Neurological Exam Neurological Exam: Alert, Awake - Psychiatric Exam Psychiatric exam: Normal Affect, Normal Mood - Skin Skin Exam: Warm Assessment and Plan - Assessment and Plan (Free Text) Assessment: Lower extremity wounds Assessment & Plan: 10/10: Pt for PICC insertion tomorrow 10/11, prior to DC to Rehab on IV Abx 10/09: patient scheduled for bilateral lower extremity ulcer debridement with versajet. Cleared from surgical standpoint per surgery team. 10/06: one dose lasix 40mg given today to help with swelling Afebrile ID Dr. Allison consulted- help appreciated Wound care consulted Zosyn 2.25gm IVPB Q6H (started on 10/03) Vancomycin 1g IVPB Q12H (started on 10/03) silvadene ointment topically daily urine culture no growth blood culture no growth 24h PVD Assessment & Plan: Vascular Surgery Dr. Velasquez consulted-check arterial duplex to evaluate lower extremity disease, may need skin graft Continue ASA and Plavix Status: Acute Leukocytosis Assessment & Plan: 10/10: Pt for PICC insertion tomorrow 10/11, prior to DC to Rehab on IV Abx. 10/09: WBC 9, improving. Vancomycin 1gm ivpb q12 (started 10/04); Zosyn 2.25Gm IVPB Q6H (started 10/07). possible sources infection- lower extremity wounds, pt on antibiotics, will continue to monitor blood and urine cultures negative CXR moderate venous congestion, patchy bibasilar airspace opacities will continue to monitor Status: Acute Anemia Assessment & Plan: 10/09: Hgb 9 Hgb 9.0 s/p transfusion 2 units PRBC will continue to monitor Status: Acute History of Aortic Valve Replacement Assessment & Plan: Hold Plavix and ASA for surgery Status: Acute CAD (coronary artery disease) Assessment & Plan: Patient on ASA and Plavix at home, held for surgery Status: Acute HTN (hypertension) Assessment & Plan: BP controlled Continue Lopressor 50 mg PO BID Status: Acute Electrolyte Imbalance - Hypokalemia, K3.5 -> Kdur 40mg, f/u Prophylactic measure Assessment & Plan: Pepcid Held Plavix Held lovenox 40u sc daily --> Start heparin 5k u SC Q12 (10/10). percocet 1 tab q4prn magnesium hydroxide 30mg PO daily prn PT eval -> recommend CARROL. All medical managment as per Dr. Verdin Disposition: Patient to receive PICC tomorrow 10/11. DC planning for Rehab on IV Abx.
--- NOTE | 2016-10-10 11:54 | CP.PCM.PN ---
Subjective - Date & Time of Evaluation Date of Evaluation: 10/10/16 Time of Evaluation: 11:52 - Subjective Subjective: Surgery: Dr. Velasquez Pt seen and examined. Resting comfortably in bed. Has some pain at debridement site. Controlled w. meds. Objective - Vital Signs/Intake and Output Vital Signs (last 24 hours): Temp Pulse Resp BP Pulse Ox 98.2 F 80 20 128/69 98 10/10/16 08:00 10/10/16 11:12 10/10/16 08:00 10/10/16 11:12 10/10/16 11:12 Intake and Output: 10/10/16 10/10/16 06:59 18:59 Intake Total 1050 Output Total 1500 Balance -450 - Medications Medications: Current Medications Acetaminophen (Tylenol 325mg Tab) 650 mg PO Q6 PRN PRN Reason: Pain, Mild (1-3) Last Admin: 10/09/16 03:53 Dose: 650 mg Famotidine (Pepcid) 20 mg PO DAILY [facility] Last Admin: 10/10/16 10:22 Dose: 20 mg Vancomycin HCl 1 gm/ Sodium (Chloride) 250 mls @ 166.7 mls/hr IVPB Q12H [facility] Last Admin: 10/10/16 03:35 Dose: 166.7 mls/hr Piperacillin Sod/Tazobactam Sod (Zosyn 2.25 Gm Iv Premix) 2.25 gm in 50 mls @ 200 mls/hr IVPB Q6H [facility] Last Admin: 10/10/16 11:18 Dose: 200 mls/hr Magnesium Hydroxide (Milk Of Magnesia) 30 ml PO DAILY PRN PRN Reason: Constipation Last Admin: 10/08/16 17:55 Dose: 30 ml Metoprolol Tartrate (Lopressor) 50 mg PO BID [facility] Last Admin: 10/10/16 10:22 Dose: 50 mg Oxycodone/Acetaminophen (Percocet 5/325 Mg Tab) 1 tab PO Q4H PRN PRN Reason: Pain, Mild (1-3) Stop: 10/12/16 10:19 Last Admin: 10/10/16 05:50 Dose: 1 tab - Labs Labs: 10/09/16 08:07 10/09/16 08:07 PT 15.0 SECONDS (9.7-12.2) H 10/09/16 08:07 INR 1.3 10/09/16 08:07 APTT 34 SECONDS (21-34) 10/09/16 08:07 - Constitutional Appears: Non-toxic, No Acute Distress - Head Exam Head Exam: ATRAUMATIC, NORMOCEPHALIC - Eye Exam Eye Exam: EOMI - ENT Exam ENT Exam: Mucous Membranes Moist - Neck Exam Neck Exam: Normal Inspection - Respiratory Exam Respiratory Exam: NORMAL BREATHING PATTERN. 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 chronic B/L LE ulcers, s/p debridement, POD#1 -will change dressing tomorrow -c/w pain meds -c/w abx -d/w attending Alfredomaitis PGY2
[2016-10-10 11:58] LABS: BASO % 0.6 % (0.0-2.0); EOS # 0.3 K/uL (0.0-0.7); EOS % 3.3 % (0.0-4.0); HEMOGLOBIN 9.7 g/dL (12.0-18.0); LYMPH # 1.7 K/uL (1.0-4.3); LYMPH % 20.2 % (20.0-40.0); MEAN CORPUSCULAR HEMOGLOBIN 21.6 pg (27.0-31.0); MEAN CORPUSCULAR HGB CONC 30.5 g/dL (33.0-37.0); MEAN PLATELET VOLUME 9.7 fL (7.2-11.7); MONO # 0.9 K/uL (0.0-0.8); NEUT # 5.3 K/uL (1.8-7.0); NEUT % 64.9 % (50.0-75.0); RBC 4.48 Mil/uL (4.40-5.90); RED CELL DISTRIBUTION WIDTH 24.5 % (11.5-14.5); WHITE BLOOD COUNT 8.2 K/uL (4.8-10.8)
[2016-10-10 12:35] LABS: ALBUMIN 3.3 g/dL (3.5-5.0)
[2016-10-10 12:37] LABS: GFR AFRICAN-AMERICAN > 60; GFR NON-AFRICAN AMERICAN > 60
[2016-10-10 12:38] LABS: ALB/GLOB RATIO 0.8 (1.0-2.1); ALT/SGPT 48 U/L (21-72); AST/SGOT 45 U/L (17-59); BLOOD UREA NITROGEN 15 mg/dL (9-20)
[2016-10-10 12:39] LABS: MAGNESIUM 2.3 mg/dL (1.6-2.3)
[2016-10-10] MEDS ORDERED: Potassium Chloride 20 mEq ER Tab PO ONE (16:22)
[2016-10-11] MEDS: Oxycodone/Acetaminophen 5/325 mg Tab PO PRN ×3 (02:29→17:52)
[2016-10-11] MEDS: Piperacill/Tazo 2.25gm in Dex 2.25 GM/50 ML BAG IVPB SCH ×4 (05:00→22:44)
[2016-10-11 07:35] LABS: BASO # 0.1 K/uL (0.0-0.2); BASO % 1.3 % (0.0-2.0); EOS # 0.3 K/uL (0.0-0.7); EOS % 4.1 % (0.0-4.0); HEMOGLOBIN 9.4 g/dL (12.0-18.0); LYMPH # 1.5 K/uL (1.0-4.3); MEAN CELL VOLUME 70.1 fL (80.0-94.0); MEAN CORPUSCULAR HEMOGLOBIN 21.8 pg (27.0-31.0); MEAN CORPUSCULAR HGB CONC 31.1 g/dL (33.0-37.0); MEAN PLATELET VOLUME 9.7 fL (7.2-11.7); MONO # 0.9 K/uL (0.0-0.8); MONO % 12.9 % (0.0-10.0); NEUT # 4.3 K/uL (1.8-7.0); NEUT % 60.7 % (50.0-75.0); RBC 4.31 Mil/uL (4.40-5.90); RED CELL DISTRIBUTION WIDTH 24.7 % (11.5-14.5); WHITE BLOOD COUNT 7.1 K/uL (4.8-10.8)
--- NOTE | 2016-10-11 07:45 | CP.PCM.PN ---
Subjective - Date & Time of Evaluation Date of Evaluation: 10/11/16 Time of Evaluation: 07:15 - Subjective Subjective: PGY2 Medicine Note- Dr. Verdin's service Patient seen and examined. No overnight events per nursing. Patient is resting comfortably s/p bilateral lower extremity ulcer debridement on 10/09. Denies f/c , chest pain, SOB, n/v, d/c, dysuria, or any additional complaints. Pt received PICC line today. Plan is for artherectomy tomorrow of right SFA with Dr. Velasquez. Objective - Vital Signs/Intake and Output Vital Signs (last 24 hours): Temp Pulse Resp BP Pulse Ox 98.5 F 73 20 142/74 98 10/10/16 23:30 10/10/16 23:30 10/10/16 23:30 10/10/16 23:30 10/10/16 23:30 Intake and Output: 10/11/16 10/11/16 06:59 18:59 Intake Total 400 660 Output Total 1600 1200 Balance -1200 -540 - Medications Medications: Current Medications Acetaminophen (Tylenol 325mg Tab) 650 mg PO Q6 PRN PRN Reason: Pain, Mild (1-3) Last Admin: 10/09/16 03:53 Dose: 650 mg Famotidine (Pepcid) 20 mg PO DAILY [facility] Last Admin: 10/10/16 10:22 Dose: 20 mg Heparin Sodium (Porcine) (Heparin) 5,000 units SC Q12 [facility] Last Admin: 10/10/16 22:18 Dose: 5,000 units Vancomycin HCl 1 gm/ Sodium (Chloride) 250 mls @ 166.7 mls/hr IVPB Q12H [facility] Last Admin: 10/11/16 02:21 Dose: 166.7 mls/hr Piperacillin Sod/Tazobactam Sod (Zosyn 2.25 Gm Iv Premix) 2.25 gm in 50 mls @ 200 mls/hr IVPB Q6H [facility] Last Admin: 10/11/16 05:00 Dose: 200 mls/hr Magnesium Hydroxide (Milk Of Magnesia) 30 ml PO DAILY PRN PRN Reason: Constipation Last Admin: 10/08/16 17:55 Dose: 30 ml Metoprolol Tartrate (Lopressor) 50 mg PO BID [facility] Last Admin: 10/10/16 17:02 Dose: 50 mg Oxycodone/Acetaminophen (Percocet 5/325 Mg Tab) 1 tab PO Q4H PRN PRN Reason: Pain, Mild (1-3) Stop: 10/12/16 10:19 Last Admin: 10/11/16 02:29 Dose: 1 tab - Labs Labs: 10/11/16 07:18 10/10/16 11:51 PT 15.0 SECONDS (9.7-12.2) H 10/09/16 08:07 INR 1.3 10/09/16 08:07 APTT 34 SECONDS (21-34) 10/09/16 08:07 - Additional Findings Additional findings: - Constitutional Appears: Non-toxic, No Acute Distress - Head Exam Head Exam: ATRAUMATIC, NORMOCEPHALIC - Eye Exam Eye Exam: EOMI - ENT Exam ENT Exam: Mucous Membranes Moist - Respiratory Exam Respiratory Exam: Decreased Breath Sounds, NORMAL BREATHING PATTERN - Cardiovascular Exam Cardiovascular Exam: +S1, +S2 - GI/Abdominal Exam GI & Abdominal Exam: Soft, Normal Bowel Sounds. absent: Tenderness - Extremities Exam Extremities Exam: Pedal Edema Additional comments: lower extremity wounds wrapped, CDI - Neurological Exam Neurological Exam: Alert, Awake - Psychiatric Exam Psychiatric exam: Normal Affect, Normal Mood - Skin Skin Exam: Warm Assessment and Plan - Assessment and Plan (Free Text) Assessment: PVD Assessment & Plan: 10/11: Right SFT stent stenosis. plan for artherectomy tomorrow of right SFA with Dr. Velasquez. Resume ASA and Plavix per Surgery Vascular Surgery Dr. Velasquez consulted-check arterial duplex to evaluate lower extremity disease, may need skin graft Status: Acute Lower extremity wounds Assessment & Plan: 10/11: POD#2 s/p b/l ankle venous ulcer debridement. Bandages CDI. 10/10: Pt for PICC insertion tomorrow 10/11, prior to DC to Rehab on IV Abx 10/09: patient scheduled for bilateral lower extremity ulcer debridement with versajet. Cleared from surgical standpoint per surgery team. 10/06: one dose lasix 40mg given today to help with swelling Afebrile ID Dr. Allison consulted- help appreciated Wound care consulted Zosyn 2.25gm IVPB Q6H (started on 10/03) Vancomycin 1g IVPB Q12H (started on 10/03) silvadene ointment topically daily urine culture no growth blood culture no growth 24h Leukocytosis Assessment & Plan: 10/11: received PICC today. 10/10: Pt for PICC insertion tomorrow 10/11, prior to DC to Rehab on IV Abx. 10/09: WBC 9, improving. Vancomycin 1gm ivpb q12 (started 10/04); Zosyn 2.25Gm IVPB Q6H (started 10/07). possible sources infection- lower extremity wounds, pt on antibiotics, will continue to monitor blood and urine cultures negative CXR moderate venous congestion, patchy bibasilar airspace opacities will continue to monitor Status: Acute Anemia Assessment & Plan: 10/09-10/11: Hgb 9's; stable Hgb 9.0 s/p transfusion 2 units PRBC will continue to monitor Status: Acute History of Aortic Valve Replacement Assessment & Plan: 10/11: Resume ASA and Plavix per Surgery Status: Acute CAD (coronary artery disease) Assessment & Plan: 10/11: Resume ASA and Plavix per Surgery Status: Acute HTN (hypertension) Assessment & Plan: BP controlled Continue Lopressor 50 mg PO BID Status: Acute Electrolyte Imbalance - Hypokalemia, K3.5 -> Kdur 40mg, f/u (resolved) Prophylactic measure Assessment & Plan: Pepcid Held Plavix Held lovenox 40u sc daily --> Start heparin 5k u SC Q12 (10/10). percocet 1 tab q4prn magnesium hydroxide 30mg PO daily prn PT eval -> recommend CARROL. All medical managment as per Dr. Verdin
[2016-10-11 07:48] LABS: ALBUMIN 3.1 g/dL (3.5-5.0)
[2016-10-11 07:49] LABS: INR 1.3; PROTHROMBIN TIME 14.9 SECONDS (9.7-12.2)
[2016-10-11 07:51] LABS: ALB/GLOB RATIO 0.8 (1.0-2.1); ALT/SGPT 42 U/L (21-72); AST/SGOT 35 U/L (17-59); BLOOD UREA NITROGEN 16 mg/dL (9-20); GFR AFRICAN-AMERICAN > 60; GFR NON-AFRICAN AMERICAN 58
[2016-10-11 07:52] LABS: CALCIUM 9.3 mg/dl (8.6-10.4); MAGNESIUM 2.3 mg/dL (1.6-2.3)
--- NOTE | 2016-10-11 08:01 | CP.PCM.PN ---
Subjective - Date & Time of Evaluation Date of Evaluation: 10/11/16 Time of Evaluation: 07:58 - Subjective Subjective: Vasc Sx: Dr Velasquez PT S&E. NAL[place]. Resting comfortably. Reports b/l ankle pain and right calf pain. He is POD#2 s/p b/l ankle venous ulcer debridement, also has right SFT stent stenosis. Denies f/c, n/v. Dressing changed at bedside. Objective - Vital Signs/Intake and Output Vital Signs (last 24 hours): Temp Pulse Resp BP Pulse Ox 98.2 F 68 20 164/78 H 98 10/11/16 07:49 10/11/16 07:49 10/11/16 07:49 10/11/16 07:49 10/11/16 07:49 Intake and Output: 10/11/16 10/11/16 06:59 18:59 Intake Total 400 660 Output Total 1600 1200 Balance -1200 -540 - Medications Medications: Current Medications Acetaminophen (Tylenol 325mg Tab) 650 mg PO Q6 PRN PRN Reason: Pain, Mild (1-3) Last Admin: 10/09/16 03:53 Dose: 650 mg Famotidine (Pepcid) 20 mg PO DAILY [facility] Last Admin: 10/10/16 10:22 Dose: 20 mg Heparin Sodium (Porcine) (Heparin) 5,000 units SC Q12 [facility] Last Admin: 10/10/16 22:18 Dose: 5,000 units Vancomycin HCl 1 gm/ Sodium (Chloride) 250 mls @ 166.7 mls/hr IVPB Q12H [facility] Last Admin: 10/11/16 02:21 Dose: 166.7 mls/hr Piperacillin Sod/Tazobactam Sod (Zosyn 2.25 Gm Iv Premix) 2.25 gm in 50 mls @ 200 mls/hr IVPB Q6H [facility] Last Admin: 10/11/16 05:00 Dose: 200 mls/hr Magnesium Hydroxide (Milk Of Magnesia) 30 ml PO DAILY PRN PRN Reason: Constipation Last Admin: 10/08/16 17:55 Dose: 30 ml Metoprolol Tartrate (Lopressor) 50 mg PO BID [facility] Last Admin: 10/10/16 17:02 Dose: 50 mg Oxycodone/Acetaminophen (Percocet 5/325 Mg Tab) 1 tab PO Q4H PRN PRN Reason: Pain, Mild (1-3) Stop: 10/12/16 10:19 Last Admin: 10/11/16 02:29 Dose: 1 tab - Labs Labs: 10/11/16 07:18 10/11/16 07:18 PT 14.9 SECONDS (9.7-12.2) H 10/11/16 07:18 INR 1.3 10/11/16 07:18 APTT 33 SECONDS (21-34) 10/11/16 07:18 - Constitutional Appears: Non-toxic, No Acute Distress - Respiratory Exam Respiratory Exam: absent: Accessory Muscle Use - Extremities Exam Additional comments: b/l venous ulcers with clean base, no surrounding erythema, purulence or exudate. Granulation tissue present - Neurological Exam Neurological Exam: Alert, Awake, Oriented x3 - Psychiatric Exam Psychiatric exam: Normal Affect, Normal Mood Assessment and Plan - Assessment and Plan (Free Text) Assessment: 81M with b/l non-healing venous ulcers and right SFA stenosis, POD#2 wound debridement Plan: Dressing changed at bedside - xeroform, kerlex, jaspal bandage Keep legs elevated plan for artherectomy tomorrow of right SFA NPO @ [place] d/w Dr Ron Ritter, PGY2
--- NOTE | 2016-10-11 12:50 | RAD ---
HISTORY: verify right PICC COMPARISON: 10/03/2016 FINDINGS: LUNGS: No pulmonary infiltrate. There is a linear opacity overlying the mid right lung, laterally, of uncertain significance. This may be extrinsic to the patient. It is not seen on prior examination. PLEURA: No significant pleural effusion identified, no pneumothorax apparent. CARDIOVASCULAR: Normal heart size. Sternotomy wires. New right PICC catheter terminates in the region of the superior vena cava. OSSEOUS STRUCTURES: No significant abnormalities. VISUALIZED UPPER ABDOMEN: Normal. OTHER FINDINGS: None. IMPRESSION: Right PICC catheter terminates in the region of the superior vena cava. No acute infiltrate
[2016-10-12] MEDS: Piperacill/Tazo 2.25gm in Dex 2.25 GM/50 ML BAG IVPB SCH ×4 (05:30→23:29)
[2016-10-12 07:28] LABS: BASO # 0.1 K/uL (0.0-0.2); BASO % 1.4 % (0.0-2.0); EOS # 0.3 K/uL (0.0-0.7); EOS % 3.6 % (0.0-4.0); HEMOGLOBIN 9.3 g/dL (12.0-18.0); LYMPH # 1.6 K/uL (1.0-4.3); LYMPH % 20.9 % (20.0-40.0); MEAN CELL VOLUME 70.2 fL (80.0-94.0); MEAN CORPUSCULAR HEMOGLOBIN 21.8 pg (27.0-31.0); MEAN PLATELET VOLUME 9.6 fL (7.2-11.7); MONO # 0.8 K/uL (0.0-0.8); MONO % 11.2 % (0.0-10.0); NEUT # 4.7 K/uL (1.8-7.0); NEUT % 62.9 % (50.0-75.0); RBC 4.25 Mil/uL (4.40-5.90); RED CELL DISTRIBUTION WIDTH 24.6 % (11.5-14.5); WHITE BLOOD COUNT 7.5 K/uL (4.8-10.8)
[2016-10-12 07:42] LABS: INR 1.3
[2016-10-12 08:03] LABS: ALBUMIN 3.1 g/dL (3.5-5.0)
[2016-10-12 08:06] LABS: ALB/GLOB RATIO 0.8 (1.0-2.1); ALT/SGPT 39 U/L (21-72); AST/SGOT 31 U/L (17-59); BLOOD UREA NITROGEN 16 mg/dL (9-20); GFR AFRICAN-AMERICAN > 60; GFR NON-AFRICAN AMERICAN 58
[2016-10-12 08:07] LABS: CALCIUM 9.1 mg/dl (8.6-10.4); MAGNESIUM 2.2 mg/dL (1.6-2.3)
[2016-10-12] MEDS ORDERED: Lidocaine 2% Inj (20ml) ONE (09:06)
[2016-10-12] MEDS ORDERED: Iodixanol 320 MG/ML 200 ML BOTTLE IV ONE ×2 (09:16→09:19)
[2016-10-12] MEDS ORDERED: Midazolam 2 MG/2 ML VIAL ONE ×2 (09:18→10:19)
[2016-10-12] MEDS ORDERED: Dexmedetomidine Hydrochloride 100 mcg/ml (2ML) ONE (09:27)
[2016-10-12] MEDS ORDERED: Propofol 10 mg/ml Inj (20 ML) ONE (09:32)
--- NOTE | 2016-10-12 10:58 | CP.PCM.PN ---
Subjective - Date & Time of Evaluation Date of Evaluation: 10/12/16 Time of Evaluation: 07:10 - Subjective Subjective: PGY2 Medicine Note- Dr. Verdin's service Patient seen and examined. No overnight events per nursing. Patient is resting comfortably s/p bilateral lower extremity ulcer debridement on 10/09. Denies f/c , chest pain, SOB, n/v, d/c, dysuria, or any additional complaints. Patient went to OR today for artherectomy tomorrow of right SFA with Dr. Velasquez. Objective - Vital Signs/Intake and Output Vital Signs (last 24 hours): Temp Pulse Resp BP Pulse Ox 98.4 F 69 20 149/70 100 10/12/16 07:46 10/12/16 07:46 10/12/16 07:46 10/12/16 07:46 10/12/16 07:46 Intake and Output: 10/12/16 10/12/16 06:59 18:59 Intake Total 880 Output Total 1050 Balance -170 - Medications Medications: Current Medications Acetaminophen (Tylenol 325mg Tab) 650 mg PO Q6 PRN PRN Reason: Pain, Mild (1-3) Last Admin: 10/09/16 03:53 Dose: 650 mg Aspirin (Aspirin Chewable) 81 mg PO DAILY [facility] Last Admin: 10/12/16 10:20 Dose: Not Given Clopidogrel Bisulfate (Plavix) 75 mg PO DAILY [facility] Last Admin: 10/12/16 10:20 Dose: Not Given Famotidine (Pepcid) 20 mg PO DAILY [facility] Last Admin: 10/12/16 10:20 Dose: Not Given Heparin Sodium (Porcine) (Heparin) 5,000 units SC Q12 [facility] Last Admin: 10/11/16 09:27 Dose: 5,000 units Vancomycin HCl 1 gm/ Sodium (Chloride) 250 mls @ 166.7 mls/hr IVPB Q12H [facility] Last Admin: 10/12/16 03:25 Dose: 166.7 mls/hr Piperacillin Sod/Tazobactam Sod (Zosyn 2.25 Gm Iv Premix) 2.25 gm in 50 mls @ 200 mls/hr IVPB Q6H [facility] Last Admin: 10/12/16 05:30 Dose: 200 mls/hr Magnesium Hydroxide (Milk Of Magnesia) 30 ml PO DAILY PRN PRN Reason: Constipation Last Admin: 10/08/16 17:55 Dose: 30 ml Metoprolol Tartrate (Lopressor) 50 mg PO BID [facility] Last Admin: 10/12/16 10:20 Dose: Not Given - Labs Labs: 10/12/16 07:17 10/12/16 07:17 PT 15.0 SECONDS (9.7-12.2) H 10/12/16 07:17 INR 1.3 10/12/16 07:17 APTT 32 SECONDS (21-34) 10/12/16 07:17 - Additional Findings Additional findings: - Constitutional Appears: Non-toxic, No Acute Distress - Head Exam Head Exam: ATRAUMATIC, NORMOCEPHALIC - Eye Exam Eye Exam: EOMI - ENT Exam ENT Exam: Mucous Membranes Moist - Respiratory Exam Respiratory Exam: Decreased Breath Sounds, NORMAL BREATHING PATTERN - Cardiovascular Exam Cardiovascular Exam: +S1, +S2 - GI/Abdominal Exam GI & Abdominal Exam: Soft, Normal Bowel Sounds. absent: Tenderness - Extremities Exam Extremities Exam: Pedal Edema Additional comments: lower extremity wounds wrapped, CDI - Neurological Exam Neurological Exam: Alert, Awake - Psychiatric Exam Psychiatric exam: Normal Affect, Normal Mood - Skin Skin Exam: Warm, Dry, Intact Assessment and Plan - Assessment and Plan (Free Text) Assessment: PVD Assessment & Plan: 10/12: Arthrectomy performed with Dr. Velasquez today. 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 New stent placed distally. 10/11: Right SFT stent stenosis. plan for artherectomy tomorrow of right SFA with Dr. Velasquez. Resume ASA and Plavix per Surgery Vascular Surgery Dr. Velasquez consulted-check arterial duplex to evaluate lower extremity disease, may need skin graft Status: Acute Lower extremity wounds Assessment & Plan: 10/11-10/12: s/p b/l ankle venous ulcer debridement on 10/09. Bandages CDI. 10/10: Pt for PICC insertion tomorrow 10/11, prior to DC to Rehab on IV Abx 10/09: patient scheduled for bilateral lower extremity ulcer debridement with versajet. Cleared from surgical standpoint per surgery team. 10/06: one dose lasix 40mg given today to help with swelling Afebrile ID Dr. Allison consulted- help appreciated Wound care consulted Zosyn 2.25gm IVPB Q6H (started on 10/03) Vancomycin 1g IVPB Q12H (started on 10/03) silvadene ointment topically daily urine culture no growth blood culture no growth 24h Leukocytosis Assessment & Plan: 10/11: received PICC today. 10/10: Pt for PICC insertion tomorrow 10/11, prior to DC to Rehab on IV Abx. 10/09: WBC 9, improving. Vancomycin 1gm ivpb q12 (started 10/04); Zosyn 2.25Gm IVPB Q6H (started 10/07). possible sources infection- lower extremity wounds, pt on antibiotics, will continue to monitor blood and urine cultures negative CXR moderate venous congestion, patchy bibasilar airspace opacities will continue to monitor Status: Acute Anemia Assessment & Plan: 10/09-10/11: Hgb 9's; stable Hgb 9.0 s/p transfusion 2 units PRBC will continue to monitor Status: Acute History of Aortic Valve Replacement Assessment & Plan: 10/11: Resume ASA and Plavix per Surgery Status: Acute CAD (coronary artery disease) Assessment & Plan: 10/11: Resume ASA and Plavix per Surgery Status: Acute HTN (hypertension) Assessment & Plan: BP controlled Continue Lopressor 50 mg PO BID Status: Acute Electrolyte Imbalance - Hypokalemia, K3.5 -> Kdur 40mg, f/u (resolved) Prophylactic measure Assessment & Plan: Pepcid Held Plavix Held lovenox 40u sc daily --> Start heparin 5k u SC Q12 (10/10). percocet 1 tab q4prn magnesium hydroxide 30mg PO daily prn PT eval -> recommend CARROL. All medical managment as per Dr. Verdin
--- NOTE | 2016-10-12 11:57 | PCM.SURG1 ---
Surgeon's Initial Post Op Note - Surgeon's Notes Surgeon: [email or web address] Skin Tanner: 0 Type of Anesthesia: IV Sedation Anesthesia Administered By: humaira Pre-Operative Diagnosis: iscemic leg ulcer Operative Findings: 90+% stemosis distal sfa beyond stent Post-Operative Diagnosis: same Operation Performed: aortofemoral angiogram via left geoin. selective catherization right sfa. pathway atherectomy r/sfa pop. dcb. viabahn stent 7x50, 7x100 toght sfa /pop. perclose left groin Specimen/Specimens Removed: 0 Estimated Blood Loss: EBL {In ML}: 25 Blood Products Given: N/A Drains Used: No Drains Post-Op Condition: Good Date of Surgery/Procedure: 10/12/16 Time of Surgery/Procedure: 11:58
[2016-10-12] MEDS: Oxycodone/Acetaminophen 5/325 mg Tab PO PRN (18:19)
[2016-10-13] MEDS: Oxycodone/Acetaminophen 5/325 mg Tab PO PRN ×2 (01:04→10:16)
[2016-10-13] MEDS: Piperacill/Tazo 2.25gm in Dex 2.25 GM/50 ML BAG IVPB SCH ×2 (05:16→10:18)
[2016-10-13 07:51] LABS: BASO # 0.1 K/uL (0.0-0.2); BASO % 0.9 % (0.0-2.0); EOS # 0.3 K/uL (0.0-0.7); EOS % 2.6 % (0.0-4.0); HEMOGLOBIN 9.2 g/dL (12.0-18.0); LYMPH # 1.6 K/uL (1.0-4.3); LYMPH % 16.9 % (20.0-40.0); MEAN CELL VOLUME 69.7 fL (80.0-94.0); MEAN CORPUSCULAR HEMOGLOBIN 21.8 pg (27.0-31.0); MEAN CORPUSCULAR HGB CONC 31.3 g/dL (33.0-37.0); MEAN PLATELET VOLUME 9.4 fL (7.2-11.7); MONO # 1.1 K/uL (0.0-0.8); MONO % 11.2 % (0.0-10.0); NEUT # 6.6 K/uL (1.8-7.0); NEUT % 68.4 % (50.0-75.0); RBC 4.24 Mil/uL (4.40-5.90); RED CELL DISTRIBUTION WIDTH 25.2 % (11.5-14.5); WHITE BLOOD COUNT 9.7 K/uL (4.8-10.8)
[2016-10-13 07:59] LABS: ALBUMIN 3.1 g/dL (3.5-5.0)
[2016-10-13 08:00] LABS: INR 1.3; PROTHROMBIN TIME 15.3 SECONDS (9.7-12.2)
[2016-10-13 08:02] LABS: ALB/GLOB RATIO 0.8 (1.0-2.1); AST/SGOT 32 U/L (17-59); BLOOD UREA NITROGEN 17 mg/dL (9-20); GFR AFRICAN-AMERICAN > 60; GFR NON-AFRICAN AMERICAN > 60
[2016-10-13 08:03] LABS: ALT/SGPT 46 U/L (21-72); CALCIUM 8.8 mg/dl (8.6-10.4); MAGNESIUM 1.9 mg/dL (1.6-2.3)
--- NOTE | 2016-10-13 08:12 | CP.PCM.PN ---
Subjective - Date & Time of Evaluation Date of Evaluation: 10/13/16 Time of Evaluation: 08:09 - Subjective Subjective: Vasc Sx: Dr Velasquez Pt S&E. s/p angiogram with right SFA stent placement yesterday. NAEO. Complains of minimal stiffness in LE. Pain well controlled. Dressing changed at bedside, wound clean with good granulation tissue. Will plan for skin grafts in future, pt can follow up as outpatient. Daily dressing change: Iodoform over wound followed by 4 x4, Kerlex, Olegario bandage wrap. Keep legs elevated Objective - Vital Signs/Intake and Output Vital Signs (last 24 hours): Temp Pulse Resp BP Pulse Ox 98.3 F 81 20 139/61 98 10/13/16 07:18 10/13/16 07:18 10/13/16 07:18 10/13/16 07:18 10/13/16 07:18 Intake and Output: 10/13/16 10/13/16 06:59 18:59 Intake Total 900 Output Total 600 Balance 300 - Medications Medications: Current Medications Acetaminophen (Tylenol 325mg Tab) 650 mg PO Q6 PRN PRN Reason: Pain, Mild (1-3) Last Admin: 10/09/16 03:53 Dose: 650 mg Aspirin (Aspirin Chewable) 81 mg PO DAILY [facility] Last Admin: 10/12/16 10:20 Dose: Not Given Clopidogrel Bisulfate (Plavix) 75 mg PO DAILY [facility] Last Admin: 10/12/16 10:20 Dose: Not Given Famotidine (Pepcid) 20 mg PO DAILY [facility] Last Admin: 10/12/16 10:20 Dose: Not Given Heparin Sodium (Porcine) (Heparin) 5,000 units SC Q12 [facility] Last Admin: 10/11/16 09:27 Dose: 5,000 units Vancomycin HCl 1 gm/ Sodium (Chloride) 250 mls @ 166.7 mls/hr IVPB Q12H [facility] Last Admin: 10/13/16 03:12 Dose: 166.7 mls/hr Piperacillin Sod/Tazobactam Sod (Zosyn 2.25 Gm Iv Premix) 2.25 gm in 50 mls @ 200 mls/hr IVPB Q6H [facility] Last Admin: 10/13/16 05:16 Dose: 200 mls/hr Magnesium Hydroxide (Milk Of Magnesia) 30 ml PO DAILY PRN PRN Reason: Constipation Last Admin: 10/08/16 17:55 Dose: 30 ml Metoprolol Tartrate (Lopressor) 50 mg PO BID [facility] Last Admin: 10/12/16 17:52 Dose: 50 mg Oxycodone/Acetaminophen (Percocet 5/325 Mg Tab) 1 tab PO Q4H PRN PRN Reason: pain Stop: 10/15/16 18:04 Last Admin: 10/13/16 01:04 Dose: 1 tab - Labs Labs: 10/13/16 07:43 10/12/16 07:17 PT 15.3 SECONDS (9.7-12.2) H 10/13/16 07:43 INR 1.3 10/13/16 07:43 APTT 33 SECONDS (21-34) 10/13/16 07:43 - Constitutional Appears: Non-toxic, No Acute Distress - Respiratory Exam Respiratory Exam: absent: Accessory Muscle Use, Respiratory Distress - Cardiovascular Exam Cardiovascular Exam: REGULAR RHYTHM - GI/Abdominal Exam GI & Abdominal Exam: Soft. absent: Tenderness - Exam Additional comments: left groin site C/D/I - Extremities Exam Additional comments: b/l LE ulcers clean, no erythema or exudate, good granulation tissue - Neurological Exam Neurological Exam: Alert, Awake, Oriented x3 - Psychiatric Exam Psychiatric exam: Normal Affect, Normal Mood - Skin Skin Exam: Normal Color, Warm Assessment and Plan - Assessment and Plan (Free Text) Assessment: 81M with non-healing b/l LE venostasis ulcers: s/p debridement with angiography and stenting of R SFA stenosis Plan: cont local wound care as instructed keep legs elevated OK for D/C from surgical standpoint with outpatient f/u for skin graft planning Pt states he has family arriving Sunday than can help at home with ADLs d/w Dr Ron Ritter, PGY2
[2016-10-13 16:10] VITALS: BP 146/75; PULSE 70; TEMP 98.5; O2SAT 99
--- NOTE | 2016-10-13 16:25 | CP.PCM.PN ---
Subjective - Date & Time of Evaluation Date of Evaluation: 10/13/16 Time of Evaluation: 09:50 - Subjective Subjective: PGY2 Medicine Note- Dr. Verdin's service Patient seen and examined. Patient reports leg heaviness today. Objective - Vital Signs/Intake and Output Vital Signs (last 24 hours): Temp Pulse Resp BP Pulse Ox 98.5 F 70 20 146/75 99 10/13/16 16:00 10/13/16 16:00 10/13/16 16:00 10/13/16 16:00 10/13/16 16:00 Intake and Output: 10/13/16 10/13/16 06:59 18:59 Intake Total 900 Output Total 600 Balance 300 - Medications Medications: Current Medications Acetaminophen (Tylenol 325mg Tab) 650 mg PO Q6 PRN PRN Reason: Pain, Mild (1-3) Last Admin: 10/09/16 03:53 Dose: 650 mg Aspirin (Aspirin Chewable) 81 mg PO DAILY [facility] Last Admin: 10/13/16 10:09 Dose: 81 mg Clopidogrel Bisulfate (Plavix) 75 mg PO DAILY [facility] Last Admin: 10/13/16 10:10 Dose: 75 mg Famotidine (Pepcid) 20 mg PO DAILY [facility] Last Admin: 10/13/16 10:10 Dose: 20 mg Heparin Sodium (Porcine) (Heparin) 5,000 units SC Q12 [facility] Last Admin: 10/11/16 09:27 Dose: 5,000 units Vancomycin HCl 1 gm/ Sodium (Chloride) 250 mls @ 166.7 mls/hr IVPB Q12H [facility] Last Admin: 10/13/16 03:12 Dose: 166.7 mls/hr Piperacillin Sod/Tazobactam Sod (Zosyn 2.25 Gm Iv Premix) 2.25 gm in 50 mls @ 200 mls/hr IVPB Q6H [facility] Last Admin: 10/13/16 10:18 Dose: 200 mls/hr Magnesium Hydroxide (Milk Of Magnesia) 30 ml PO DAILY PRN PRN Reason: Constipation Last Admin: 10/08/16 17:55 Dose: 30 ml Metoprolol Tartrate (Lopressor) 50 mg PO BID [facility] Last Admin: 10/13/16 10:10 Dose: 50 mg Oxycodone/Acetaminophen (Percocet 5/325 Mg Tab) 1 tab PO Q4H PRN PRN Reason: pain Stop: 10/15/16 18:04 Last Admin: 10/13/16 10:16 Dose: 1 tab - Labs Labs: 10/13/16 07:43 10/13/16 07:43 PT 15.3 SECONDS (9.7-12.2) H 10/13/16 07:43 INR 1.3 10/13/16 07:43 APTT 33 SECONDS (21-34) 10/13/16 07:43 - Constitutional Appears: Non-toxic, No Acute Distress - Head Exam Head Exam: ATRAUMATIC, NORMOCEPHALIC - Eye Exam Eye Exam: EOMI - ENT Exam ENT Exam: Mucous Membranes Moist - Respiratory Exam Respiratory Exam: Clear to Ausculation Bilateral, NORMAL BREATHING PATTERN - Cardiovascular Exam Cardiovascular Exam: +S1, +S2 - GI/Abdominal Exam GI & Abdominal Exam: Soft, Normal Bowel Sounds. absent: Tenderness - Extremities Exam Extremities Exam: Pedal Edema Additional comments: improved edema in bilateral lower extremities wounds wrapped in clean olegario bandage - Neurological Exam Neurological Exam: Alert, Awake - Psychiatric Exam Psychiatric exam: Normal Affect - Skin Skin Exam: Warm Assessment and Plan - Assessment and Plan (Free Text) Assessment: PVD Assessment & Plan: 10/13: s/p arthrectomy, patient to follow up with Dr. Velasquez as outpatient for skin graft 10/12: Arthrectomy performed with Dr. Velasquez today. 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 New stent placed distally. 10/11: Right SFT stent stenosis. plan for artherectomy tomorrow of right SFA with Dr. Velasquez. Resume ASA and Plavix per Surgery Vascular Surgery Dr. Velasquez consulted-check arterial duplex to evaluate lower extremity disease, may need skin graft Status: Acute Lower extremity wounds Assessment & Plan: 10/13: pt to have xeroform dressing changes daily in rehab 10/11-10/12: s/p b/l ankle venous ulcer debridement on 10/09. Bandages CDI. 10/10: Pt for PICC insertion tomorrow 10/11, prior to DC to Rehab on IV Abx 10/09: patient scheduled for bilateral lower extremity ulcer debridement with versajet. Cleared from surgical standpoint per surgery team. 10/06: one dose lasix 40mg given today to help with swelling Afebrile ID Dr. Allison consulted- help appreciated Wound care consulted Zosyn 2.25gm IVPB Q6H (started on 10/03) Vancomycin 1g IVPB Q12H (started on 10/03) silvadene ointment topically daily urine culture no growth blood culture no growth 24h Leukocytosis Assessment & Plan: 10/13: pt to go to rehab, one more week IV antibiotics 10/11: received PICC today. 10/10: Pt for PICC insertion tomorrow 10/11, prior to DC to Rehab on IV Abx. 10/09: WBC 9, improving. Vancomycin 1gm ivpb q12 (started 10/04); Zosyn 2.25Gm IVPB Q6H (started 10/07). possible sources infection- lower extremity wounds, pt on antibiotics, will continue to monitor blood and urine cultures negative CXR moderate venous congestion, patchy bibasilar airspace opacities will continue to monitor Status: Acute Anemia Assessment & Plan: 10/09-10/13: Hgb 9's; stable s/p transfusion 2 units PRBC will continue to monitor Status: Acute History of Aortic Valve Replacement Assessment & Plan: 10/11: Resume ASA and Plavix per Surgery Status: Acute CAD (coronary artery disease) Assessment & Plan: 10/11: Resume ASA and Plavix per Surgery Status: Acute HTN (hypertension) Assessment & Plan: BP controlled Continue Lopressor 50 mg PO BID Status: Acute Electrolyte Imbalance resolved Prophylactic measure Assessment & Plan: Pepcid Held Plavix Held lovenox 40u sc daily --> Start heparin 5k u SC Q12 (10/10). percocet 1 tab q4prn magnesium hydroxide 30mg PO daily prn PT eval -> recommend C[facility]. All medical managment as per Dr. Verdin Patient is stable for discharge to rehab per Dr. Verdin. Patient is to take the following medications: magnesium hydroxide 30ml PO daily prn, tylenol 650mg pO q6 prn, pepcid 20mg PO daily, metoprolol tartrate 50mg PO BID, aspirin 81mg PO daily, plavix 75mg PO daily. Patient is to continue IV antibiotics vancomycin and zosyn for 7 more days. Patient is to have daily dressing changes as follows: Xeroform over wound followed by 4 x4, Kerlex, Olegario bandage wrap. Keep legs elevated. Patient is to follow up with Surgery 1 week after discharge - plan for skin graft as an outpatient. Patient is to follow up with Dr. Verdin upon discharge. Patient is to return to the ED if his symptoms reoccur or worsen, this was explained to the patient who understands and agrees.
--- NOTE | 2016-11-06 18:07 | DS ---
HISTORY OF PRESENT ILLNESS: The patient chief complaint of infected wound to the leg. The patient *----* IV antibiotics. Vascular surgeon consult *------*. The patient was discharged and will continue IV antibiotics. Brandy Vedrin MD
== END 2016-10-13 16:15 | DRG 571 ==
LOC: C.ER 12:55 → C.9E 15:13 → C.3T 16:48
PROVIDERS: ADMIT Internal Medicine Pulmonary Disease; ATTEND Internal Medicine Pulmonary Disease
PROC: 0JBQ0ZZ Excision of Right Foot Subcutaneous Tissue and Fascia, Open Approach (ICD-10-PCS; 2016-10-09)
PROC: 0JBR0ZZ Excision of Left Foot Subcutaneous Tissue and Fascia, Open Approach (ICD-10-PCS; principal; 2016-10-09 11:00)
PROC: 02HV33Z Insertion of Infusion Device into Superior Vena Cava, Percutaneous Approach (ICD-10-PCS; 2016-10-11)
PROC: 047K3EZ Dilation of Right Femoral Artery with Two Intraluminal Devices, Percutaneous Approach (ICD-10-PCS; 2016-10-12)
PROC: 04CK3ZZ Extirpation of Matter from Right Femoral Artery, Percutaneous Approach (ICD-10-PCS; 2016-10-12)
DX: L97.329 Non-pressure chronic ulcer of left ankle with unspecified severity (principal); I96 Gangrene, not elsewhere classified; J44.9 Chronic obstructive pulmonary disease, unspecified; I11.0 Hypertensive heart disease with heart failure; I50.9 Heart failure, unspecified; E86.0 Dehydration; D64.9 Anemia, unspecified; I73.9 Peripheral vascular disease, unspecified; Z86.010 Personal history of colon polyps; L97.919 Non-pressure chronic ulcer of unspecified part of right lower leg with unspecified severity; I25.10 Atherosclerotic heart disease of native coronary artery without angina pectoris; Z86.718 Personal history of other venous thrombosis and embolism; Z87.891 Personal history of nicotine dependence; Z95.2 Presence of prosthetic heart valve; Z68.23 Body mass index [BMI] 23.0-23.9, adult; D72.829 Elevated white blood cell count, unspecified

== ENCOUNTER 2016-11-13 11:56 | Inpatient (IN) | payer MEDICARE ==
[2016-11-13 11:54] VITALS: BMI 27.1
[~2016-11-13 11:56] MED LIST: Mineral Oil Light Sterile 25 ml ONE; ceFAZolin IV 1 gm in Dextrose 0 GM/0 ML BAG IVPB ONE
[2016-11-13] MEDS ORDERED: ceFAZolin IV 2 gm in Dextrose 0 GM/0 ML BAG IVPB ONE (12:50)
[2016-11-13 13:16] LABS: BASO # 0.2 K/uL (0.0-0.2); BASO % 1.5 % (0.0-2.0); EOS # 0.3 K/uL (0.0-0.7); EOS % 2.4 % (0.0-4.0); HEMATOCRIT 27.8 % (35.0-51.0); LYMPH # 1.7 K/uL (1.0-4.3); LYMPH % 16.5 % (20.0-40.0); MEAN CORPUSCULAR HEMOGLOBIN 20.9 pg (27.0-31.0); MEAN CORPUSCULAR HGB CONC 30.8 g/dL (33.0-37.0); MEAN PLATELET VOLUME 9.3 fL (7.2-11.7); MONO # 1.3 K/uL (0.0-0.8); MONO % 12.3 % (0.0-10.0); RED CELL DISTRIBUTION WIDTH 24.8 % (11.5-14.5); WHITE BLOOD COUNT 10.3 K/uL (4.8-10.8)
[2016-11-13 13:49] LABS: CHLORIDE 95 mmol/L (98-107); POTASSIUM 4.5 mmol/L (3.6-5.2); SODIUM 133 mmol/L (132-148)
[2016-11-13 13:51] LABS: GFR AFRICAN-AMERICAN > 60
[2016-11-13 13:52] LABS: ALB/GLOB RATIO 0.8 (1.0-2.1); ALKALINE PHOSPHATASE 94 U/L (38-126); ALT/SGPT 50 U/L (21-72); AST/SGOT 52 U/L (17-59); BILIRUBIN,TOTAL 0.6 mg/dL (0.2-1.3); BLOOD UREA NITROGEN 18 mg/dL (9-20); CARBON DIOXIDE 27 mmol/L (22-30); GLUCOSE,RANDOM 90 mg/dL (75-110); TOTAL PROTEIN 7.5 g/dL (6.3-8.3)
[2016-11-13 13:53] LABS: CALCIUM 8.8 mg/dl (8.6-10.4)
[2016-11-13 14:03] LABS: INR 1.4
--- NOTE | 2016-11-13 14:16 | CP.PCM.PN ---
Subjective - Date & Time of Evaluation Date of Evaluation: 11/13/16 Time of Evaluation: 02:30 - Subjective Subjective: PGY1 Medicine Note- Dr. Verdin's service: Patient is an 81 year old male with PMHx of PVD, COPD, CHF, HTN, Anemia who presented with complaint of non-healing lower extremity wounds bilaterally. Patient was to have surgery today with Dr. Velasquez for these wounds with skin grafting. Hbg was noted to be low. Patient has a hx of valve replacement and per surgery they would like him to receive a unit of blood before surgery. PMH: HTN, [place], PVD, PSH: aortic valve replacement, cholecystectomy cardiac cath, angiogram x 2 All: Denies MedsL Percoct prn pain, Lopressore 50mg PO BID, Milk of Magnesia, Plavix 75 mg PO daily, ASA 81mg PO daily (Plavix and ASA have been held for 6 days) SH: Former remote tobacco use (2ppd x 25yrs, quit 25 yrs ago), former ETOH use ( quit 25 yrs ago), denies illicit drug use or history of PMD: [place] Objective - Vital Signs/Intake and Output Vital Signs (last 24 hours): Temp Pulse Resp BP Pulse Ox 98.4 F 80 18 147/84 100 11/13/16 12:19 11/13/16 12:19 11/13/16 12:19 11/13/16 12:19 11/13/16 12:19 - Medications Medications: Current Medications Heparin Sodium (Porcine) (Heparin) 5,000 units SC Q12 [facility] - Labs Labs: 11/13/16 13:09 PT 15.5 SECONDS (9.7-12.2) H 11/13/16 13:47 INR 1.4 11/13/16 13:47 APTT 31 SECONDS (21-34) 11/13/16 13:47 - Constitutional Appears: Non-toxic, No Acute Distress, In Acute Distress, Other (pain in legs) - Head Exam Head Exam: ATRAUMATIC, NORMAL INSPECTION - Eye Exam Eye Exam: EOMI, Normal appearance, PERRL - ENT Exam ENT Exam: Mucous Membranes Moist - Respiratory Exam Respiratory Exam: Clear to Ausculation Bilateral, NORMAL BREATHING PATTERN. absent: Accessory Muscle Use, Respiratory Distress - Cardiovascular Exam Cardiovascular Exam: REGULAR RHYTHM, +S1, +S2, Murmur Additional comments: radiates in cartoid - GI/Abdominal Exam GI & Abdominal Exam: Soft, Normal Bowel Sounds. absent: Distended, Firm, Guarding, Tenderness - Extremities Exam Extremities Exam: Calf Tenderness, Normal Inspection. absent: Pedal Edema Additional comments: leg dressings in placec/d/i - Back Exam Back Exam: NORMAL INSPECTION. absent: CVA tenderness (L), CVA tenderness (R), paraspinal tenderness - Neurological Exam Neurological Exam: Alert, Awake, Oriented x3 - Psychiatric Exam Psychiatric exam: Normal Affect Assessment and Plan - Assessment and Plan (Free Text) Assessment: B/l LE leg ulcers Dr. Velasquez consulted, help appreciated OR 11/15 for debridement and possible skin grafting of B/L LE wounds NPO after MN Nov 15 Heparin held at 6am on Nov 15 Dilaudid 0.5mg IVP prn severe pain Percocet 1 tab PO Q4 prn moderate pain Anemia Hbg 8.5 Will transfuse 1 U PRBC Hx Valve replacement ASA and Plavix held due to surgeical plans Dr. Duggan consulted, help appreciated HTN Lopressor 50mg PO BID Heparin 5000 U SC Q12 Pepcid 20mg PO BID NO SCDS to to LE leg ulcers Heart healthy diet
[2016-11-13] MEDS: Oxycodone/Acetaminophen 5/325 mg Tab PO PRN (14:53)
--- NOTE | 2016-11-13 16:00 | CP.PCM.CON ---
History of Present Illness - History of Present Illness History of Present Illness: General Surgery Consult note for Dr. Satya Jean, PGY-1 Pt S & E at bedside. 81M w/PMH sig for HTN, [place], and PVD consulted for chronic B/L LE unhealing leg ulcers x 1 yr. Pt reports initial onset of wounds 2/2 trauma to area in 2016. Pt admitted to hospital for anemia prior to surgical intervention and surgical optimization. Only complaint at this time is B/L LE pain- controlled with pain regimen, "burning". Denies N/V/F/C, SOB, CP, changes to bowel or bladder habits , other complaints. PMH: HTN, [place], PVD PSH: aortic valve replacement, cholecystectomy cardiac cath, angiogram x 2 All: Denies SH: Former remote tobacco use (2ppd x 25yrs, quit 25 yrs ago), former ETOH use ( quit 25 yrs ago), denies illicit drug use or history of PMD: [place] Review of Systems - Review of Systems All systems: reviewed and no additional remarkable complaints except - Constitutional Constitutional: absent: Chills, Fever - EENT Nose/Mouth/Throat: absent: Sore Throat - Cardiovascular Cardiovascular: absent: Chest Pain - Respiratory Respiratory: absent: Cough - Gastrointestinal Gastrointestinal: absent: Abdominal Pain - Neurological Neurological: Weakness Past Patient History - Past Medical History & Family History Past Medical History?: Yes - Past Social History Smoking Status: Never Smoked - CARDIAC Hx Cardiac Disorders: Yes Hx Angina: Yes (2008 OPEN HEART AORTIC VALVE REPLACEMENT) Hx Circulatory Problems: Yes Hx Hypertension: Yes Hx Peripheral Edema: Yes Hx Peripheral Vascular Disease: Yes Other/Comment: PAD - PULMONARY Hx Respiratory Disorders: No - NEUROLOGICAL Hx Neurological Disorder: No - HEENT Hx HEENT Problems: No - RENAL Hx Chronic Kidney Disease: No - ENDOCRINE/METABOLIC Hx Endocrine Disorders: No - HEMATOLOGICAL/ONCOLOGICAL Hx Blood Disorders: Yes Hx Anemia: Yes Hx Blood Transfusions: Yes Hx Blood Transfusion Reaction: No - INTEGUMENTARY Hx Dermatological Problems: Yes Other/Comment: Mark anterior lower leg-w/scattered open dry ulcers - MUSCULOSKELETAL/RHEUMATOLOGICAL Hx Musculoskeletal Disorders: Yes Hx Arthritis: Yes (B/L KNEE JT L >R) Hx Falls: Yes Hx Fractures: Yes (ANKLE) Hx Osteoarthritis: Yes - GASTROINTESTINAL Hx Gastrointestinal Disorders: Yes Hx Gall Bladder Disease: Yes (GALLSTONES ROBIN) - GENITOURINARY/GYNECOLOGICAL Hx Genitourinary Disorders: No - PSYCHIATRIC Hx Psychophysiologic Disorder: No Hx Substance Use: No - SURGICAL HISTORY Hx Surgeries: Yes Hx Angiogram: Yes (08/07/16) Hx Angioplasty: Yes (LEFT CLINICAL NURSE OCCUPATIONAL MEDICINE LEG) Hx Cardiac Catheterization: Yes (X 3) Hx Cholecystectomy: Yes Hx Musculoskeletal Surgery: Yes (right shoulder) Hx Open Heart Surgery: Yes Hx Orthopedic Surgery: Yes Hx Valve Replacement: Yes - ANESTHESIA Hx Anesthesia: Yes Hx Anesthesia Reactions: No Hx Malignant Hyperthermia: No Has any member of the family had a problem w/ anesthesia?: No Meds Allergies/Adverse Reactions: Allergies Allergy/AdvReac Type Severity Reaction Status Date / Time No Known Allergies Allergy Verified 08/25/16 20:48 - Medications Medications: Current Medications Aspirin (Aspirin Chewable) 81 mg PO DAILY [facility] Famotidine (Pepcid) 20 mg PO BID [facility] Heparin Sodium (Porcine) (Heparin) 5,000 units SC Q12 [facility] Magnesium Hydroxide (Milk Of Magnesia) 30 ml PO DAILY PRN PRN Reason: Constipation Metoprolol Tartrate (Lopressor) 50 mg PO BID [facility] Oxycodone/Acetaminophen (Percocet 5/325 Mg Tab) 1 tab PO Q4H PRN PRN Reason: pain Stop: 11/16/16 14:20 Last Admin: 11/13/16 14:53 Dose: 1 tab Physical Exam - Constitutional Appears: Non-toxic, No Acute Distress - Head Exam Head Exam: ATRAUMATIC, NORMAL INSPECTION, NORMOCEPHALIC - Eye Exam Eye Exam: EOMI, Normal appearance - ENT Exam ENT Exam: Mucous Membranes Moist, Normal Exam - Neck Exam Neck exam: Positive for: Full Rom, Normal Inspection - Respiratory Exam Respiratory Exam: Clear to Auscultation Bilateral, NORMAL BREATHING PATTERN - Cardiovascular Exam Cardiovascular Exam: REGULAR RHYTHM, +S1, +S2, Systolic Murmur - GI/Abdominal Exam GI & Abdominal Exam: Normal Bowel Sounds, Soft. absent: Tenderness - Extremities Exam Extremities exam: Positive for: pedal edema. Negative for: normal inspection (B /L LE ankle around with large, full skin thickness ulcers, almost circumferential, with minimal drainage, mooney tissue at margins, dressings in place with minimal serous drainage- intact) - Neurological Exam Neurological exam: Alert, CN II-XII Intact, Oriented x3 - Psychiatric Exam Psychiatric exam: Normal Affect, Normal Mood - Skin Skin Exam: Warm Additional comments: See extremity exam for LE skin findings Results - Vital Signs Recent Vital Signs: Last Vital Signs Temp 98.4 F 11/13/16 12:19 Pulse 93 H 11/13/16 14:35 Resp 18 11/13/16 12:19 BP 147/84 11/13/16 12:19 Pulse Ox 100 11/13/16 12:19 - Labs Result Diagrams: 11/13/16 13:09 11/13/16 13:37 Labs: Laboratory Results - last 24 hr 11/13/16 11/13/16 11/13/16 13:09 13:37 13:37 WBC 10.3 RBC 4.09 L Hgb 8.5 L Hct 27.8 L MCV 68.0 L MCH 20.9 L MCHC 30.8 L RDW 24.8 H Plt Count 240 MPV 9.3 Neut % (Auto) 67.3 Lymph % (Auto) 16.5 L [place] % (Auto) 12.3 H Eos % (Auto) 2.4 Baso % (Auto) 1.5 Neut # 7.0 Lymph # 1.7 [place] # 1.3 H Eos # 0.3 Baso # 0.2 PT INR APTT Sodium 133 Potassium 4.5 Chloride 95 L Carbon Dioxide 27 Anion Gap 16 BUN 18 Creatinine 1.3 Est GFR ( Amer) > 60 Est GFR (Non-Af Amer) 53 Random Glucose 90 Calcium 8.8 Total Bilirubin 0.6 AST 52 ALT 50 Alkaline Phosphatase 94 Total Protein 7.5 Albumin 3.3 L Globulin 4.2 H Albumin/Globulin Ratio 0.8 L Blood Type B POSITIVE Antibody Screen Negative 11/13/16 13:47 WBC RBC Hgb Hct MCV MCH MCHC RDW Plt Count MPV Neut % (Auto) Lymph % (Auto) [place] % (Auto) Eos % (Auto) Baso % (Auto) Neut # Lymph # [place] # Eos # Baso # PT 15.5 H INR 1.4 APTT 31 Sodium Potassium Chloride Carbon Dioxide Anion Gap BUN Creatinine Est GFR ( Amer) Est GFR (Non-Af Amer) Random Glucose Calcium Total Bilirubin AST ALT Alkaline Phosphatase Total Protein Albumin Globulin Albumin/Globulin Ratio Blood Type Antibody Screen Assessment & Plan - Assessment and Plan (Free Text) Assessment: 81M w/unhealing, chronic wounds of B/L LE Plan: Plan for OR 11/15 for debridement and possible skin grafting of B/L LE wounds Pain mgmt NPO after MN Nov 15 Heparin held at 6am on Nov 15 Consent in chart Transfuse 1 unit of pRBCs Labs DW attending Miranda, PGY-1 - Date & Time Date: 11/13/16 Time: 16:01
[2016-11-13 21:46] LABS: RBC URINE < 1 /hpf (0-3); TRANSITIONAL EPITHIAL < 1 /hpf (0-3); URINE BACTERIA RARE (<OCC); URINE BILIRUBIN NEGATIVE (NEGATIVE); URINE BLOOD NEGATIVE (NEGATIVE); URINE COLOR Yellow (YELLOW); URINE GLUCOSE (UA) NORMAL (Normal); URINE KETONE NEGATIVE (NEGATIVE); URINE LEUKOCYTE ESTERASE NEG Leu/uL (Negative); URINE PROTEIN 1+ mg/dL (NEGATIVE); WBC URINE < 1 /hpf (0-5)
[2016-11-14] MEDS: Oxycodone/Acetaminophen 5/325 mg Tab PO PRN ×3 (02:12→21:43)
[2016-11-14] MEDS: HYDROmorphone 0.5 mg/0.5 ml ISec IVP PRN ×2 (04:28→12:33)
[2016-11-14 06:07] LABS: BASO # 0.1 K/uL (0.0-0.2); EOS # 0.1 K/uL (0.0-0.7); EOS % 0.7 % (0.0-4.0); HEMATOCRIT 29.5 % (35.0-51.0); LYMPH # 1.6 K/uL (1.0-4.3); LYMPH % 15.4 % (20.0-40.0); MEAN CELL VOLUME 69.6 fL (80.0-94.0); MEAN CORPUSCULAR HEMOGLOBIN 21.4 pg (27.0-31.0); MEAN CORPUSCULAR HGB CONC 30.7 g/dL (33.0-37.0); MEAN PLATELET VOLUME 9.5 fL (7.2-11.7); MONO # 1.1 K/uL (0.0-0.8); RED CELL DISTRIBUTION WIDTH 24.9 % (11.5-14.5); WHITE BLOOD COUNT 10.2 K/uL (4.8-10.8)
[2016-11-14 06:24] LABS: CHLORIDE 93 mmol/L (98-107); SODIUM 133 mmol/L (132-148)
[2016-11-14 06:25] LABS: POTASSIUM 3.9 mmol/L (3.6-5.2)
[2016-11-14 06:27] LABS: ALB/GLOB RATIO 0.8 (1.0-2.1); ALKALINE PHOSPHATASE 78 U/L (38-126); ALT/SGPT 41 U/L (21-72); AST/SGOT 41 U/L (17-59); BILIRUBIN,TOTAL 1.8 mg/dL (0.2-1.3); BLOOD UREA NITROGEN 14 mg/dL (9-20); CALCIUM 8.4 mg/dl (8.6-10.4); CARBON DIOXIDE 26 mmol/L (22-30); GFR AFRICAN-AMERICAN > 60; GLUCOSE,RANDOM 77 mg/dL (75-110); PHOSPHOROUS 3.3 mg/dL (2.5-4.5); TOTAL PROTEIN 6.7 g/dL (6.3-8.3)
[2016-11-14 06:28] LABS: MAGNESIUM 2.1 mg/dL (1.6-2.3)
--- NOTE | 2016-11-14 15:52 | CP.PCM.PN ---
Subjective - Date & Time of Evaluation Date of Evaluation: 11/14/16 Time of Evaluation: 07:00 - Subjective Subjective: VASCULAR SURGERY PROGRESS NOTE FOR DR. LOPEZ Patient seen and examined at bedside. There were no acute issues overnight. He was transfused 1 unit PRBC. He reports pain in bilateral legs. He is tolerating his diet. His dressings were changed by the surgical team this AM and again by the wound care team with [place]. Objective - Vital Signs/Intake and Output Vital Signs (last 24 hours): Temp Pulse Resp BP Pulse Ox 99.2 F 91 H 20 163/74 H 98 11/14/16 08:59 11/14/16 08:59 11/14/16 08:59 11/14/16 08:59 11/14/16 08:59 Intake and Output: 11/14/16 11/14/16 06:59 18:59 Intake Total 320 Balance 320 - Medications Medications: Current Medications Famotidine (Pepcid) 20 mg PO BID [facility] Last Admin: 11/14/16 09:32 Dose: 20 mg Heparin Sodium (Porcine) (Heparin) 5,000 units SC Q12 [facility] Last Admin: 11/14/16 09:32 Dose: 5,000 units Hydromorphone HCl (Dilaudid) 0.5 mg IVP Q6 PRN PRN Reason: Pain, severe (8-10) Last Admin: 11/14/16 12:33 Dose: 0.5 mg Magnesium Hydroxide (Milk Of Magnesia) 30 ml PO DAILY PRN PRN Reason: Constipation Metoprolol Tartrate (Lopressor) 50 mg PO BID [facility] Last Admin: 11/14/16 12:29 Dose: 50 mg Oxycodone/Acetaminophen (Percocet 5/325 Mg Tab) 1 tab PO Q4H PRN PRN Reason: pain Stop: 11/16/16 14:20 Last Admin: 11/14/16 09:29 Dose: 1 tab - Labs Labs: 11/14/16 05:59 11/14/16 05:59 PT 15.5 SECONDS (9.7-12.2) H 11/13/16 13:47 INR 1.4 11/13/16 13:47 APTT 31 SECONDS (21-34) 11/13/16 13:47 - Constitutional Appears: Non-toxic, No Acute Distress - Head Exam Head Exam: ATRAUMATIC, NORMAL INSPECTION - Eye Exam Eye Exam: EOMI, Normal appearance - Respiratory Exam Respiratory Exam: NORMAL BREATHING PATTERN. absent: Respiratory Distress - Cardiovascular Exam Cardiovascular Exam: +S1, +S2 - Extremities Exam Additional comments: LE edema bilaterally Ulcers present on bilateral ankles Dressings with some drainage - Neurological Exam Neurological Exam: Alert, Awake - Psychiatric Exam Psychiatric exam: Normal Affect, Normal Mood - Skin Skin Exam: Dry, Normal Color, Warm Assessment and Plan - Assessment and Plan (Free Text) Assessment: 81yo M with unhealing chronic leg ulcers of bilateral lower extremities - Afebrile, VSS - Hgb 9.1 today after 1 unit PRBC overnight - Changed dressing on bilateral legs this AM - OR tomorrow for bilateral leg ulcer debridement and possible skin graft - NPO past midnight - Heparin held - Consent in chart - Discussed plan with Dr. Ron Rao PGY-2
--- NOTE | 2016-11-14 16:40 | CP.PCM.PN ---
Subjective - Date & Time of Evaluation Date of Evaluation: 11/14/16 Time of Evaluation: 16:38 - Subjective Subjective: Medicine progress note for Dr. Verdin's Service Patient seen and examined at bedside. No acute issues overnight. He is s/p transfusion of 1 unit PRBCs and hbg is stable this morning at 9.1. He complains of pain in his lower extremities bilateral. He denies F/C/CP/SOB/N/V/D/C. Objective - Vital Signs/Intake and Output Vital Signs (last 24 hours): Temp Pulse Resp BP Pulse Ox 99.2 F 91 H 20 163/74 H 98 11/14/16 08:59 11/14/16 08:59 11/14/16 08:59 11/14/16 08:59 11/14/16 08:59 Intake and Output: 11/14/16 11/14/16 06:59 18:59 Intake Total 320 Balance 320 - Medications Medications: Current Medications Famotidine (Pepcid) 20 mg PO BID [facility] Last Admin: 11/14/16 09:32 Dose: 20 mg Heparin Sodium (Porcine) (Heparin) 5,000 units SC Q12 [facility] Last Admin: 11/14/16 09:32 Dose: 5,000 units Hydromorphone HCl (Dilaudid) 0.5 mg IVP Q6 PRN PRN Reason: Pain, severe (8-10) Last Admin: 11/14/16 12:33 Dose: 0.5 mg Magnesium Hydroxide (Milk Of Magnesia) 30 ml PO DAILY PRN PRN Reason: Constipation Metoprolol Tartrate (Lopressor) 50 mg PO BID [facility] Last Admin: 11/14/16 12:29 Dose: 50 mg Oxycodone/Acetaminophen (Percocet 5/325 Mg Tab) 1 tab PO Q4H PRN PRN Reason: pain Stop: 11/16/16 14:20 Last Admin: 11/14/16 09:29 Dose: 1 tab - Labs Labs: 11/14/16 05:59 11/14/16 05:59 PT 15.5 SECONDS (9.7-12.2) H 11/13/16 13:47 INR 1.4 11/13/16 13:47 APTT 31 SECONDS (21-34) 11/13/16 13:47 - Constitutional Appears: No Acute Distress - Head Exam Head Exam: NORMAL INSPECTION - Eye Exam Eye Exam: EOMI, Normal appearance - ENT Exam ENT Exam: Mucous Membranes Moist - Respiratory Exam Respiratory Exam: Clear to Ausculation Bilateral - Cardiovascular Exam Cardiovascular Exam: REGULAR RHYTHM - GI/Abdominal Exam GI & Abdominal Exam: Soft. absent: Tenderness - Extremities Exam Additional comments: dressing is c/d/i - Neurological Exam Neurological Exam: Alert, Awake, Oriented x3 Assessment and Plan - Assessment and Plan (Free Text) Plan: Bilateral LE leg ulcers Dr. Velasquez consulted, help appreciated Will be going to OR tomorrow, 11/15 for debridement and possible skin grafting of B/L LE wounds NPO after MN tonight Heparin held for surgery Dilaudid 0.5mg IVP prn severe pain Percocet 1 tab PO Q4 prn moderate pain Anemia- stable Hbg 9.1 s/p transfusion 1 U PRBC Hx Valve replacement ASA and Plavix held due to surgical plans Dr. Duggan consulted, help appreciated HTN Lopressor 50mg PO BID Prophylaxis Heparin 5000 U SC Q12- will hold tonight Pepcid 20mg PO BID NO SCDS to to LE leg ulcers Heart healthy diet
[2016-11-15] MEDS: Oxycodone/Acetaminophen 5/325 mg Tab PO PRN (03:35)
--- NOTE | 2016-11-15 03:54 | CON ---
DATE: 11/14/2016 CARDIOLOGY CONSULTATION REASON FOR CONSULTATION: Preoperative evaluation. 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 The patient is also known to have chronic anemia that required blood transfusion. The most recent one according the patient prior to this admission was 4 years ago. The patient underwent cardiac catheterization in 06/2014 because of shortness of breath and weakness, as well as systolic murmur over the aortic area. The conclusion of the procedure was unremarkable function, and no gradient noted across aortic valve. The patient presented because of painful bilateral leg ulcers, and debridement with possible skin grafting has been planned for tomorrow. The patient denies any retrosternal chest pain. The patient was noted to be anemic with hemoglobin and hematocrit of 8.5 and 27.8 on admission and required 1 unit of packed RBC transfusion. SOCIAL HISTORY: The patient is a former smoker, he quit many years ago. MEDICATIONS: Dilaudid 0.5 mg intravenous q. 6 hours, subcutaneous heparin 5000 units twice a day, Lopressor 50 mg twice a day, Pepcid 20 mg p.o. twice a day, Percocet 1 tablet q. 4 hours p.r.n. REVIEW OF SYSTEMS: No nausea or vomiting. No dizziness or syncope. No retrosternal chest pain. PHYSICAL EXAMINATION: GENERAL: The patient is an elderly male who does not appear to be in acute distress. VITAL SIGNS: Blood pressure 125/67, heart rate 78, temperature 98.1 and respirations 20. HEENT: Pale conjunctivae. CARDIOPULMONARY: Heart S1 and S2 regular. Grade IV/ ejection systolic murmur over left sternal border. CHEST: Clear. ABDOMEN: Soft. EXTREMITIES: Dressing is applied to both feet for the bilateral feet and ankle ulcers. LABORATORY DATA: Demonstrates hemoglobin and hematocrit today are 9.1 and 29.5, white count and platelet count are within normal limits. SMA-7 is within normal limits except for chloride of 93. INR is 1.4, PTT 31. An echocardiography performed in 06/2016 revealed normal ejection fraction, prosthetic aortic valve. The aortic valve mean gradient was measured during the study to be 25 mmHg; however, in an earlier left heart catheterization there was no documented gradient across aortic valve. ASSESSMENT: 1. 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 2. Peripheral vascular disease. 3. Bilateral feet ulcers. 4. Anemia status post packed RBC transfusion. RECOMMENDATIONS: Continue current p.r.n. Dilaudid and Percocet. Continue Lopressor 50 mg twice a day, subcutaneous heparin 5000 units twice a day. I did request an echocardiogram yesterday, however, it is not available on the and I will pursue that. If the echocardiogram is unremarkable, the patient can undergo his planned surgery for tomorrow. Tobias Duggan MD
[2016-11-15 06:06] LABS: BASO % 0.5 % (0.0-2.0); EOS # 0.1 K/uL (0.0-0.7); EOS % 0.6 % (0.0-4.0); HEMATOCRIT 27.5 % (35.0-51.0); LYMPH # 1.1 K/uL (1.0-4.3); LYMPH % 11.6 % (20.0-40.0); MEAN CELL VOLUME 68.1 fL (80.0-94.0); MEAN CORPUSCULAR HEMOGLOBIN 21.4 pg (27.0-31.0); MEAN CORPUSCULAR HGB CONC 31.5 g/dL (33.0-37.0); MEAN PLATELET VOLUME 9.1 fL (7.2-11.7); MONO # 1.2 K/uL (0.0-0.8); MONO % 12.5 % (0.0-10.0); RED CELL DISTRIBUTION WIDTH 24.7 % (11.5-14.5); WHITE BLOOD COUNT 9.3 K/uL (4.8-10.8)
[2016-11-15 06:11] LABS: INR 1.6
[2016-11-15 06:18] LABS: ALB/GLOB RATIO 0.8 (1.0-2.1); ALKALINE PHOSPHATASE 71 U/L (38-126); ALT/SGPT 45 U/L (21-72); AST/SGOT 52 U/L (17-59); BILIRUBIN,TOTAL 0.9 mg/dL (0.2-1.3); BLOOD UREA NITROGEN 11 mg/dL (9-20); CALCIUM 8.2 mg/dl (8.6-10.4); CARBON DIOXIDE 29 mmol/L (22-30); CHLORIDE 95 mmol/L (98-107); GFR AFRICAN-AMERICAN > 60; GLUCOSE,RANDOM 86 mg/dL (75-110); POTASSIUM 3.8 mmol/L (3.6-5.2); SODIUM 130 mmol/L (132-148); TOTAL PROTEIN 6.3 g/dL (6.3-8.3)
[2016-11-15] MEDS ORDERED: ceFAZolin IV 1 gm in Dextrose 0 GM/0 ML BAG IVPB ONE (11:56)
[2016-11-15] MEDS ORDERED: Mineral Oil Light Sterile 25 ml ONE (11:56)
[2016-11-15] MEDS ORDERED: ceFAZolin IV 2 gm in Dextrose 1 GM/50 ML BAG IVPB ONE (13:14)
[2016-11-15] MEDS ORDERED: Etomidate 20 mg/10ml Inj IV ONE (13:27)
[2016-11-15] MEDS ORDERED: Silver Sulfadiazine 1% Cream (20 gm) ONE (13:50)
[2016-11-15] MEDS ORDERED: Silver Sulfadiazine 1% Cream (20 gm) TOP ONE (13:52)
[2016-11-15] MEDS ORDERED: HYDROmorphone 0.5 mg/0.5 ml ISec IVP PRN (14:14)
--- NOTE | 2016-11-15 14:26 | PCM.SURG1 ---
Surgeon's Initial Post Op Note - Surgeon's Notes Surgeon: Dr. Velasquez Pole Setter: Dr. Epps PGY II, Autumn Bell OMS III Type of Anesthesia: General LMA Pre-Operative Diagnosis: bilateral nonhealing leg ulcers Operative Findings: see operative report Post-Operative Diagnosis: see operative report Operation Performed: versajet wound debridement of anterior bilateral lower extremities Specimen/Specimens Removed: skin and cultures of left and right anterior lower extremity wounds Estimated Blood Loss: EBL {In ML}: 10 Blood Products Given: N/A, PRBC (PRBC tranfusion started on floor prior to procedure (6th tower)) Drains Used: No Drains Post-Op Condition: Good Date of Surgery/Procedure: 11/15/16 Time of Surgery/Procedure: 14:28
[2016-11-15] MEDS ORDERED: Sodium Chloride 0.9% 1,000 ML IV ONE (14:28)
[2016-11-15] MEDS ORDERED: Lactated Ringer's 1,000 ML IV ONE (14:28)
[2016-11-15] MEDS: HYDROmorphone 0.5 mg/0.5 ml ISec IVP PRN ×2 (14:44→15:12)
--- NOTE | 2016-11-15 15:28 | CP.PCM.CON ---
History of Present Illness - History of Present Illness History of Present Illness: contacted by Dr Velasquez for IV antibiotics s/p debridement leg ulcer- possible pseudomonas from wound 81M w/PMH sig for HTN, MT, and PVD consulted for chronic B/L LE unhealing leg ulcers x 1 yr. Pt reports initial onset of wounds 2/2 trauma to area in 2016. Pt admitted to hospital for anemia prior to surgical intervention and surgical optimization. PMH: HTN, MT, PVD PSH: aortic valve replacement, cholecystectomy cardiac cath, angiogram x 2 All: Denies SH: Former remote tobacco use (2ppd x 25yrs, quit 25 yrs ago), former ETOH use ( quit 25 yrs ago), denies illicit drug use or history of PMD: [place] Past Patient History - Past Medical History & Family History Past Medical History?: Yes - Past Social History Smoking Status: Never Smoked - CARDIAC Hx Cardiac Disorders: Yes Hx Angina: Yes (2008 OPEN HEART AORTIC VALVE REPLACEMENT) Hx Circulatory Problems: Yes Hx Hypertension: Yes Hx Peripheral Edema: Yes Hx Peripheral Vascular Disease: Yes Other/Comment: PAD - PULMONARY Hx Respiratory Disorders: No - NEUROLOGICAL Hx Neurological Disorder: No - HEENT Hx HEENT Problems: No - RENAL Hx Chronic Kidney Disease: No - ENDOCRINE/METABOLIC Hx Endocrine Disorders: No - HEMATOLOGICAL/ONCOLOGICAL Hx Blood Disorders: Yes Hx Anemia: Yes Hx Blood Transfusions: Yes Hx Blood Transfusion Reaction: No - INTEGUMENTARY Hx Dermatological Problems: Yes Other/Comment: Mark anterior lower leg-w/scattered open dry ulcers - MUSCULOSKELETAL/RHEUMATOLOGICAL Hx Musculoskeletal Disorders: Yes Hx Arthritis: Yes (B/L KNEE JT L >R) Hx Falls: Yes Hx Fractures: Yes (ANKLE) Hx Osteoarthritis: Yes - GASTROINTESTINAL Hx Gastrointestinal Disorders: Yes Hx Gall Bladder Disease: Yes (GALLSTONES ROBIN) - GENITOURINARY/GYNECOLOGICAL Hx Genitourinary Disorders: No - PSYCHIATRIC Hx Psychophysiologic Disorder: No Hx Substance Use: No - SURGICAL HISTORY Hx Surgeries: Yes Hx Angiogram: Yes (08/07/16) 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) Hx Cardiac Catheterization: Yes (X 3) Hx Cholecystectomy: Yes Hx Musculoskeletal Surgery: Yes (right shoulder) Hx Open Heart Surgery: Yes Hx Orthopedic Surgery: Yes Hx Valve Replacement: Yes - ANESTHESIA Hx Anesthesia: Yes Hx Anesthesia Reactions: No Hx Malignant Hyperthermia: No Has any member of the family had a problem w/ anesthesia?: No Meds Allergies/Adverse Reactions: Allergies Allergy/AdvReac Type Severity Reaction Status Date / Time No Known Allergies Allergy Verified 08/25/16 20:48 - Medications Medications: Current Medications Famotidine (Pepcid) 20 mg PO BID [facility] Last Admin: 11/15/16 09:36 Dose: Not Given Heparin Sodium (Porcine) (Heparin) 5,000 units SC Q12 [facility] Last Admin: 11/14/16 09:32 Dose: 5,000 units Hydromorphone HCl (Dilaudid) 0.5 mg IVP Q6 PRN PRN Reason: Pain, severe (8-10) Last Admin: 11/14/16 12:33 Dose: 0.5 mg Hydromorphone HCl (Dilaudid) 0.5 mg IVP Q10M PRN PRN Reason: Pain, moderate (4-7) Hydromorphone HCl (Dilaudid) 0.5 mg IVP Q5M PRN PRN Reason: Pain, severe (8-10) Stop: 11/15/16 16:25 Last Admin: 11/15/16 15:12 Dose: 0.5 mg Magnesium Hydroxide (Milk Of Magnesia) 30 ml PO DAILY PRN PRN Reason: Constipation Metoprolol Tartrate (Lopressor) 50 mg PO BID [facility] Last Admin: 11/15/16 09:31 Dose: 50 mg Ondansetron HCl (Zofran Inj) 4 mg IVP ONCE PRN PRN Reason: Nausea/Vomiting Stop: 11/15/16 16:25 Oxycodone/Acetaminophen (Percocet 5/325 Mg Tab) 1 tab PO Q4H PRN PRN Reason: pain Stop: 11/16/16 14:20 Last Admin: 11/15/16 03:35 Dose: 1 tab Oxycodone/Acetaminophen (Percocet 5/325 Mg Tab) 1 tab PO Q4H PRN PRN Reason: Pain, moderate (4-7) Stop: 11/18/16 15:05 Oxycodone/Acetaminophen (Percocet 5/325 Mg Tab) 2 tab PO Q4H PRN PRN Reason: Pain, severe (8-10) Stop: 11/18/16 15:05 Results - Vital Signs Recent Vital Signs: Last Vital Signs Temp 98.7 F 11/15/16 14:28 Pulse 78 11/15/16 15:15 Resp 10 L 11/15/16 15:15 BP 162/77 H 11/15/16 15:15 Pulse Ox 100 11/15/16 15:15 - Labs Result Diagrams: 11/15/16 05:53 11/15/16 05:53 Labs: Laboratory Results - last 24 hr 11/13/16 11/15/16 11/15/16 13:37 05:53 05:53 WBC 9.3 RBC 4.04 L Hgb 8.6 L Hct 27.5 L MCV 68.1 L MCH 21.4 L MCHC 31.5 L RDW 24.7 H Plt Count 196 MPV 9.1 Neut % (Auto) 74.8 Lymph % (Auto) 11.6 L [place] % (Auto) 12.5 H Eos % (Auto) 0.6 Baso % (Auto) 0.5 Neut # 6.9 Lymph # 1.1 [place] # 1.2 H Eos # 0.1 Baso # 0.0 PT 18.3 H INR 1.6 APTT 31 Sodium Potassium Chloride Carbon Dioxide Anion Gap BUN Creatinine Est GFR ( Amer) Est GFR (Non-Af Amer) Random Glucose Calcium Total Bilirubin AST ALT Alkaline Phosphatase Total Protein Albumin Globulin Albumin/Globulin Ratio Blood Type B POSITIVE Antibody Screen Negative 11/15/16 05:53 WBC RBC Hgb Hct MCV MCH MCHC RDW Plt Count MPV Neut % (Auto) Lymph % (Auto) [place] % (Auto) Eos % (Auto) Baso % (Auto) Neut # Lymph # [place] # Eos # Baso # PT INR APTT Sodium 130 L Potassium 3.8 Chloride 95 L Carbon Dioxide 29 Anion Gap 10 BUN 11 Creatinine 1.0 Est GFR ( Amer) > 60 Est GFR (Non-Af Amer) > 60 Random Glucose 86 Calcium 8.2 L Total Bilirubin 0.9 AST 52 ALT 45 Alkaline Phosphatase 71 Total Protein 6.3 Albumin 2.7 L Globulin 3.5 Albumin/Globulin Ratio 0.8 L Blood Type Antibody Screen
--- NOTE | 2016-11-15 15:32 | CP.PCM.PN ---
Subjective - Date & Time of Evaluation Date of Evaluation: 11/15/16 Time of Evaluation: 08:45 - Subjective Subjective: Medicine progress note for Dr. Verdin's Service Patient seen and examined at bedside. No acute issues overnight. He complains of pain in his lower extremities bilateral. He denies F/C/CP/SOB/N/V/D/C. He is for the OR today for debridement and skin grafting. Objective - Vital Signs/Intake and Output Vital Signs (last 24 hours): Temp Pulse Resp BP Pulse Ox 98.7 F 78 10 L 162/77 H 100 11/15/16 14:28 11/15/16 15:15 11/15/16 15:15 11/15/16 15:15 11/15/16 15:15 Intake and Output: 11/15/16 11/15/16 06:59 18:59 Intake Total 470 350 Balance 470 350 - Medications Medications: Current Medications Famotidine (Pepcid) 20 mg PO BID [facility] Last Admin: 11/15/16 09:36 Dose: Not Given Heparin Sodium (Porcine) (Heparin) 5,000 units SC Q12 [facility] Last Admin: 11/14/16 09:32 Dose: 5,000 units Hydromorphone HCl (Dilaudid) 0.5 mg IVP Q6 PRN PRN Reason: Pain, severe (8-10) Last Admin: 11/14/16 12:33 Dose: 0.5 mg Hydromorphone HCl (Dilaudid) 0.5 mg IVP Q10M PRN PRN Reason: Pain, moderate (4-7) Hydromorphone HCl (Dilaudid) 0.5 mg IVP Q5M PRN PRN Reason: Pain, severe (8-10) Stop: 11/15/16 16:25 Last Admin: 11/15/16 15:12 Dose: 0.5 mg Magnesium Hydroxide (Milk Of Magnesia) 30 ml PO DAILY PRN PRN Reason: Constipation Metoprolol Tartrate (Lopressor) 50 mg PO BID [facility] Last Admin: 11/15/16 09:31 Dose: 50 mg Ondansetron HCl (Zofran Inj) 4 mg IVP ONCE PRN PRN Reason: Nausea/Vomiting Stop: 11/15/16 16:25 Oxycodone/Acetaminophen (Percocet 5/325 Mg Tab) 1 tab PO Q4H PRN PRN Reason: pain Stop: 11/16/16 14:20 Last Admin: 11/15/16 03:35 Dose: 1 tab Oxycodone/Acetaminophen (Percocet 5/325 Mg Tab) 1 tab PO Q4H PRN PRN Reason: Pain, moderate (4-7) Stop: 11/18/16 15:05 Oxycodone/Acetaminophen (Percocet 5/325 Mg Tab) 2 tab PO Q4H PRN PRN Reason: Pain, severe (8-10) Stop: 11/18/16 15:05 - Labs Labs: 11/15/16 05:53 11/15/16 05:53 PT 18.3 SECONDS (9.7-12.2) H 11/15/16 05:53 INR 1.6 11/15/16 05:53 APTT 31 SECONDS (21-34) 11/15/16 05:53 - Constitutional Appears: Non-toxic, No Acute Distress - Head Exam Head Exam: ATRAUMATIC, NORMAL INSPECTION - Eye Exam Eye Exam: EOMI Pupil Exam: NORMAL ACCOMODATION - ENT Exam ENT Exam: Mucous Membranes Moist - Respiratory Exam Respiratory Exam: Clear to Ausculation Bilateral, NORMAL BREATHING PATTERN. absent: Rales, Wheezes, Respiratory Distress - Cardiovascular Exam Cardiovascular Exam: REGULAR RHYTHM, +S1, +S2, Murmur Additional comments: valve replacement hx - GI/Abdominal Exam GI & Abdominal Exam: Soft, Normal Bowel Sounds. absent: Distended, Firm, Guarding, Tenderness - Extremities Exam Additional comments: b/l leg dressings c/d/i, able to move toes, ext warm - Back Exam Back Exam: NORMAL INSPECTION. absent: CVA tenderness (L), CVA tenderness (R), paraspinal tenderness - Neurological Exam Neurological Exam: Alert, Awake, Oriented x3 - Psychiatric Exam Psychiatric exam: Normal Affect, Normal Mood - Skin Skin Exam: Dry, Intact, Normal Color, Warm Assessment and Plan - Assessment and Plan (Free Text) Assessment: Bilateral LE leg ulcers Dr. Velasquez consulted, help appreciated - s/p OR 11/15 versajet wound debridement of anterior bilateral lower extremities Will be going to OR tomorrow, 11/15 for debridement and possible skin grafting of B/L LE wounds Cultures sent Dr. Allison consulted, help appreciated Zosyn 3.375 mg IVPB Q8 - started 11/15 Dilaudid 0.5mg IVP prn severe pain Percocet 1 tab PO Q4 prn moderate pain Anemia- stable Hbg 8.4 ->9.1->8.5 one more unit of PRBC ordered today 11/15 s/p transfusion 1 U PRBC on 11/13. f/u anemia workup, fobt, retic count, fe, b/12/folate Hx Valve replacement ASA and Plavix held due to surgical plans Dr. Duggan consulted, help appreciated f/u echo HTN Lopressor 50mg PO BID Prophylaxis Heparin 5000 U SC Q12- held due to anemia needing transfusion, will r/o bleed Pepcid 20mg PO BID NO SCDS to to LE leg ulcers Heart healthy diet
[2016-11-15] MEDS: Piperacillin/Tazobact 3.375 GM in Sodium Chloride 100 ML IVPB SCH (17:56)
--- NOTE | 2016-11-15 19:24 | PN ---
SUBJECTIVE: The patient underwent bilateral leg ulcer debridement. He denies any chest pain. PHYSICAL EXAMINATION: VITAL SIGNS: Blood pressure 169/79, heart rate 85, temperature 99.1, respirations 20. HEENT: Pale conjunctivae. CHEST: Clear. HEART: S1, S2 regular. Grade 4/6 ejection systolic murmur over the left sternal border. ABDOMEN: Soft. EXTREMITIES: Dressing is applied to both lower extremity and feet. LABORATORY DATA: Hemoglobin and hematocrit 8.6 and 27.5. White count and platelet count are within normal limits. Today's SMA-7 is within normal limits except for potassium of 130 and chloride of 95. INR is 1.6. I did review the EKG yesterday and cleared the patient for debridement following that; however, the EKG is not listed on the [employer] database and was in the paper chart, and it will be *------*. ASSESSMENT: 1. Status post bilateral leg ulcer debridement. 2. Status post aortic insufficiency. 3. Anemia. 4. Hyponatremia. RECOMMENDATIONS: Continue current subcutaneous heparin 5000 units twice a day, IV p.r.n. Dilaudid, and p.r.n. oral Percocet. Continue current Zosyn at 3.375 grams intravenously q. 8 hours. Obtain 12-lead EKG postoperatively and continue Lopressor at 50 mg twice a day. Discontinue dietary sodium restriction. Tobias Duggan MD
--- NOTE | 2016-11-15 22:23 | OP ---
PREOPERATIVE DIAGNOSES: Bilateral leg ulcers, history of peripheral vascular disease. PROCEDURE CARRIED OUT: Debridement of skin, subcutaneous tissues of both lower extremities approximately 100 sq cm. SURGEON: Dr. Velasquez. ASSISTANTS: None. ANESTHESIOLOGIST: Dr. Alcala. ANESTHESIA: General. The patient is an elderly male with a history of peripheral vascular disease, large leg ulcers. Our plan today have been to debride this so removing the bandages, there was a green exudate consistent with Pseudomonas and because of this I deferred skin grafting at this time, so we extensively debrided this using a Versajet device, also, tissue was submitted. For an excisional debridement of the skin, subcutaneous tissues first used the Versajet. After this had been done, we then left the wounds open, applied Silvadene and compressive dressings. The patient tolerated the procedure well. Estimated blood loss was 100 mL maximum. Operation again was debridement of skin, subcutaneous tissues, excisional type of both legs. Royce Velasquez Jr., MD CC: Dr. Verdin
[2016-11-16] MEDS: Piperacillin/Tazobact 3.375 GM in Sodium Chloride 100 ML IVPB SCH ×3 (01:30→16:19)
[2016-11-16] MEDS: Oxycodone/Acetaminophen 5/325 mg Tab PO PRN ×3 (07:05→21:26)
[2016-11-16 07:48] LABS: BASO % 0.3 % (0.0-2.0); EOS # 0.1 K/uL (0.0-0.7); EOS % 1.7 % (0.0-4.0); HEMATOCRIT 30.2 % (35.0-51.0); LYMPH # 1.1 K/uL (1.0-4.3); LYMPH % 13.6 % (20.0-40.0); MEAN CELL VOLUME 69.7 fL (80.0-94.0); MEAN CORPUSCULAR HEMOGLOBIN 22.1 pg (27.0-31.0); MEAN CORPUSCULAR HGB CONC 31.7 g/dL (33.0-37.0); MEAN PLATELET VOLUME 9.3 fL (7.2-11.7); MONO # 0.9 K/uL (0.0-0.8); MONO % 10.6 % (0.0-10.0); NRBC % 0.1 % (0.0-2.0); RED CELL DISTRIBUTION WIDTH 25.5 % (11.5-14.5); WHITE BLOOD COUNT 8.5 K/uL (4.8-10.8)
[2016-11-16 07:59] LABS: IRON 12 ug/dL (49-181)
[2016-11-16 08:03] LABS: ALB/GLOB RATIO 0.8 (1.0-2.1); ALKALINE PHOSPHATASE 72 U/L (38-126); ALT/SGPT 65 U/L (21-72); AST/SGOT 96 U/L (17-59); BILIRUBIN,TOTAL 0.8 mg/dL (0.2-1.3); BLOOD UREA NITROGEN 13 mg/dL (9-20); CARBON DIOXIDE 30 mmol/L (22-30); CHLORIDE 95 mmol/L (98-107); GFR AFRICAN-AMERICAN > 60; GLUCOSE,RANDOM 98 mg/dL (75-110); MAGNESIUM 2.1 mg/dL (1.6-2.3); PHOSPHOROUS 2.8 mg/dL (2.5-4.5); POTASSIUM 3.7 mmol/L (3.6-5.2); SODIUM 133 mmol/L (132-148); TOTAL PROTEIN 6.2 g/dL (6.3-8.3)
--- NOTE | 2016-11-16 09:47 | CP.PCM.PN ---
Subjective - Date & Time of Evaluation Date of Evaluation: 11/16/16 Time of Evaluation: 08:00 - Subjective Subjective: General Surgery- Dr. Velasquez Pt S&E at bedside this AM. No acute events overnight. Pain at surgical site, and was more intense than the pt anticipated. Tolerating diet. Denies N/V CP/ SOB F/C. LE remained wrapped. Dressing C/D/I Objective - Vital Signs/Intake and Output Vital Signs (last 24 hours): Temp Pulse Resp BP Pulse Ox 98.4 F 74 18 127/54 L 96 11/16/16 07:30 11/16/16 07:30 11/16/16 07:30 11/16/16 07:30 11/16/16 07:30 Intake and Output: 11/16/16 11/16/16 06:59 18:59 Intake Total 240 Output Total 200 Balance 40 - Medications Medications: Current Medications Famotidine (Pepcid) 20 mg PO BID [facility] Last Admin: 11/16/16 09:39 Dose: 20 mg Heparin Sodium (Porcine) (Heparin) 5,000 units SC Q12 [facility] Last Admin: 11/16/16 09:39 Dose: 5,000 units Hydromorphone HCl (Dilaudid) 0.5 mg IVP Q6 PRN PRN Reason: Pain, severe (8-10) Last Admin: 11/14/16 12:33 Dose: 0.5 mg Hydromorphone HCl (Dilaudid) 0.5 mg IVP Q10M PRN PRN Reason: Pain, moderate (4-7) Piperacillin Sod/Tazobactam (Sod 3.375 gm/ Sodium Chloride) 100 mls @ 200 mls/ hr IVPB Q8H [facility] Last Admin: 11/16/16 09:40 Dose: 200 mls/hr Magnesium Hydroxide (Milk Of Magnesia) 30 ml PO DAILY PRN PRN Reason: Constipation Metoprolol Tartrate (Lopressor) 50 mg PO BID [facility] Last Admin: 11/16/16 09:41 Dose: 50 mg Oxycodone/Acetaminophen (Percocet 5/325 Mg Tab) 1 tab PO Q4H PRN PRN Reason: pain Stop: 11/16/16 14:20 Last Admin: 11/16/16 07:05 Dose: 1 tab Oxycodone/Acetaminophen (Percocet 5/325 Mg Tab) 1 tab PO Q4H PRN PRN Reason: Pain, moderate (4-7) Stop: 11/18/16 15:05 Oxycodone/Acetaminophen (Percocet 5/325 Mg Tab) 2 tab PO Q4H PRN PRN Reason: Pain, severe (8-10) Stop: 11/18/16 15:05 - Labs Labs: 11/16/16 07:32 11/16/16 07:32 PT 18.3 SECONDS (9.7-12.2) H 11/15/16 05:53 INR 1.6 11/15/16 05:53 APTT 31 SECONDS (21-34) 11/15/16 05:53 - Constitutional Appears: Well, No Acute Distress - Head Exam Head Exam: ATRAUMATIC - Eye Exam Eye Exam: EOMI - Respiratory Exam Respiratory Exam: NORMAL BREATHING PATTERN. absent: Accessory Muscle Use, Rhonchi, Wheezes - Cardiovascular Exam Cardiovascular Exam: REGULAR RHYTHM, RRR, +S1, +S2 - GI/Abdominal Exam GI & Abdominal Exam: Soft, Normal Bowel Sounds. absent: Distended, Tenderness - Extremities Exam Additional comments: b/L LE wrapped. Dressing C/D/I. tender to palpation. - Neurological Exam Neurological Exam: Alert, Awake, Oriented x3 - Psychiatric Exam Psychiatric exam: Normal Affect - Skin Skin Exam: Intact, Normal Color Assessment and Plan - Assessment and Plan (Free Text) Assessment: 81M b/L Venous Statis ulcers s/p B/L debridement POD1 Plan: - pain control. Currently on percocet. Will add Acetaminophen to pain regiment - keep dressing on - Monitor H/H - further Recs per Dr. Ron Schwartz d/w Dr. Ron Guardado PGY1
--- NOTE | 2016-11-16 10:01 | CP.PCM.PN ---
Subjective - Date & Time of Evaluation Date of Evaluation: 11/16/16 Time of Evaluation: 07:40 - Subjective Subjective: Medicine progress note for Dr. Verdin's Service Patient seen and examined at bedside. No acute issues overnight. He complains of pain in his lower extremities bilateral but stated this pain is controlled with medications. He denies F/C/CP/SOB/N/V/D/C. Objective - Vital Signs/Intake and Output Vital Signs (last 24 hours): Temp Pulse Resp BP Pulse Ox 98.4 F 74 18 127/54 L 96 11/16/16 07:30 11/16/16 07:30 11/16/16 07:30 11/16/16 07:30 11/16/16 07:30 Intake and Output: 11/16/16 11/16/16 06:59 18:59 Intake Total 240 Output Total 200 Balance 40 - Medications Medications: Current Medications Famotidine (Pepcid) 20 mg PO BID [facility] Last Admin: 11/16/16 09:39 Dose: 20 mg Heparin Sodium (Porcine) (Heparin) 5,000 units SC Q12 [facility] Last Admin: 11/16/16 09:39 Dose: 5,000 units Hydromorphone HCl (Dilaudid) 0.5 mg IVP Q6 PRN PRN Reason: Pain, severe (8-10) Last Admin: 11/14/16 12:33 Dose: 0.5 mg Hydromorphone HCl (Dilaudid) 0.5 mg IVP Q10M PRN PRN Reason: Pain, moderate (4-7) Piperacillin Sod/Tazobactam (Sod 3.375 gm/ Sodium Chloride) 100 mls @ 200 mls/ hr IVPB Q8H [facility] Last Admin: 11/16/16 09:40 Dose: 200 mls/hr Magnesium Hydroxide (Milk Of Magnesia) 30 ml PO DAILY PRN PRN Reason: Constipation Metoprolol Tartrate (Lopressor) 50 mg PO BID [facility] Last Admin: 11/16/16 09:41 Dose: 50 mg Oxycodone/Acetaminophen (Percocet 5/325 Mg Tab) 1 tab PO Q4H PRN PRN Reason: pain Stop: 11/16/16 14:20 Last Admin: 11/16/16 07:05 Dose: 1 tab Oxycodone/Acetaminophen (Percocet 5/325 Mg Tab) 1 tab PO Q4H PRN PRN Reason: Pain, moderate (4-7) Stop: 11/18/16 15:05 Oxycodone/Acetaminophen (Percocet 5/325 Mg Tab) 2 tab PO Q4H PRN PRN Reason: Pain, severe (8-10) Stop: 11/18/16 15:05 - Labs Labs: 11/16/16 07:32 11/16/16 07:32 PT 18.3 SECONDS (9.7-12.2) H 11/15/16 05:53 INR 1.6 11/15/16 05:53 APTT 31 SECONDS (21-34) 11/15/16 05:53 - Constitutional Appears: Non-toxic, No Acute Distress - Head Exam Head Exam: ATRAUMATIC, NORMAL INSPECTION - Eye Exam Eye Exam: EOMI, PERRL Pupil Exam: NORMAL ACCOMODATION - ENT Exam ENT Exam: Mucous Membranes Moist - Respiratory Exam Respiratory Exam: Clear to Ausculation Bilateral, NORMAL BREATHING PATTERN. absent: Accessory Muscle Use, Decreased Breath Sounds, Rales, Rhonchi, Wheezes, Respiratory Distress - Cardiovascular Exam Cardiovascular Exam: REGULAR RHYTHM, +S1, +S2, Murmur - GI/Abdominal Exam GI & Abdominal Exam: Soft, Normal Bowel Sounds. absent: Distended, Firm, Guarding, Tenderness - Extremities Exam Additional comments: b/l leg dressings c/d/i, able to move toes, ext warm - Back Exam Back Exam: NORMAL INSPECTION. absent: CVA tenderness (L), CVA tenderness (R), paraspinal tenderness - Neurological Exam Neurological Exam: Alert, Awake, Oriented x3 - Psychiatric Exam Psychiatric exam: Normal Affect, Normal Mood - Skin Skin Exam: Dry, Intact, Normal Color, Warm Assessment and Plan - Assessment and Plan (Free Text) Assessment: Bilateral LE leg ulcers Dr. Velasquez consulted, help appreciated - s/p OR 11/15 versajet wound debridement of anterior bilateral lower extremities 11/15 s/p OR for debridement Cultures sent Dr. Allison consulted, help appreciated Zosyn 3.375 mg IVPB Q8 - started 11/15 Dilaudid 0.5mg IVP prn severe pain Percocet 1 tab PO Q4 prn moderate pain Anemia- stable Hbg 8.4 ->9.1->8.5-->9.6 one more unit of PRBC ordered today 11/15 s/p transfusion 1 U PRBC on 11/13. f/u anemia workup, fobt, retic count, fe, b/12/folate Hx Valve replacement ASA and Plavix held due to surgical plans Dr. Duggan consulted, help appreciated f/u echo HTN Lopressor 50mg PO BID Prophylaxis Heparin 5000 U SC Q12- held due to anemia needing transfusion, will r/o bleed Pepcid 20mg PO BID NO SCDS to to LE leg ulcers Heart healthy diet
--- NOTE | 2016-11-16 18:21 | CP.PCM.PN ---
Subjective - Date & Time of Evaluation Date of Evaluation: 11/16/16 Time of Evaluation: 08:00 - Subjective Subjective: cultures pending iv rx in progress may need MRSA coverage Objective - Vital Signs/Intake and Output Vital Signs (last 24 hours): Temp Pulse Resp BP Pulse Ox 98.4 F 64 20 148/74 100 11/16/16 16:32 11/16/16 16:32 11/16/16 16:32 11/16/16 16:32 11/16/16 16:32 Intake and Output: 11/16/16 11/16/16 06:59 18:59 Intake Total 240 Output Total 200 Balance 40 - Medications Medications: Current Medications Acetaminophen (Tylenol 325mg Tab) 650 mg PO Q6 PRN PRN Reason: Pain, moderate (4-7) Last Admin: 11/16/16 10:29 Dose: 650 mg Famotidine (Pepcid) 20 mg PO BID [facility] Last Admin: 11/16/16 17:35 Dose: 20 mg Heparin Sodium (Porcine) (Heparin) 5,000 units SC Q12 [facility] Last Admin: 11/16/16 09:39 Dose: 5,000 units Hydromorphone HCl (Dilaudid) 0.5 mg IVP Q6 PRN PRN Reason: Pain, severe (8-10) Last Admin: 11/14/16 12:33 Dose: 0.5 mg Piperacillin Sod/Tazobactam (Sod 3.375 gm/ Sodium Chloride) 100 mls @ 200 mls/ hr IVPB Q8H [facility] Last Admin: 11/16/16 16:19 Dose: 200 mls/hr Magnesium Hydroxide (Milk Of Magnesia) 30 ml PO DAILY PRN PRN Reason: Constipation Metoprolol Tartrate (Lopressor) 50 mg PO BID [facility] Last Admin: 11/16/16 17:35 Dose: 50 mg Oxycodone/Acetaminophen (Percocet 5/325 Mg Tab) 1 tab PO Q4H PRN PRN Reason: Pain, moderate (4-7) Stop: 11/18/16 15:05 Last Admin: 11/16/16 16:20 Dose: 1 tab Oxycodone/Acetaminophen (Percocet 5/325 Mg Tab) 2 tab PO Q4H PRN PRN Reason: Pain, severe (8-10) Stop: 08/05/17 15:05 - Labs Labs: 11/16/16 07:32 11/16/16 07:32 PT 18.3 SECONDS (9.7-12.2) H 11/15/16 05:53 INR 1.6 11/15/16 05:53 APTT 31 SECONDS (21-34) 11/15/16 05:53 - Constitutional Appears: Non-toxic, Chronically Ill - Head Exam Head Exam: NORMOCEPHALIC - Eye Exam Eye Exam: PERRL - ENT Exam ENT Exam: Mucous Membranes Dry - Neck Exam Neck Exam: absent: Lymphadenopathy - Respiratory Exam Respiratory Exam: Decreased Breath Sounds - Cardiovascular Exam Cardiovascular Exam: REGULAR RHYTHM - GI/Abdominal Exam GI & Abdominal Exam: Distended Assessment and Plan (1) Cellulitis Status: Acute (2) Dehydration Status: Acute - Assessment and Plan (Free Text) Assessment: cont iv rx await cultures may need group home rx
--- NOTE | 2016-11-16 19:28 | PN ---
SUBJECTIVE: The patient underwent debridement for bilateral leg ulcers today. He has no chest pain or shortness of breath. EKG last night revealed sinus rhythm with APCs, consider old anteroseptal FL. PHYSICAL EXAM: VITAL SIGNS: Blood pressure 127/54, heart rate 74, temperature 98.4, respirations 18. HEENT: Pale conjunctivae. CHEST: Clear. HEART: Sounds regular, grade 4/6 ejection systolic murmur over left sternal border. ABDOMEN: Soft. EXTREMITIES: Dressing is applied to both feet. LABORATORY DATA: Hemoglobin and hematocrit 9.6 and 30.2. White count and platelet count are within normal limits. Today's SMA-7 are within normal limits except for chloride of 95, today's calcium is below normal at 8.0. ASSESSMENT: 1. Status post bilateral leg ulcer debridement. 2. Status post aortic valve replacement. Echo Doppler was consistent with [id number] aortic stenosis; However, cardiac catheterization revealed no gradient across aortic valve. 3. Anemia. Recommendations: Continue subcutaneous heparin 5000 units twice a day, Lopressor 50 mg twice a day and Percocet one tablet q.4 hours p.r.n. for pain, IV Zosyn at 3.375 g q. 8 hours. Tobias Duggan MD
[2016-11-17] MEDS: Piperacillin/Tazobact 3.375 GM in Sodium Chloride 100 ML IVPB SCH ×3 (02:11→17:39)
[2016-11-17 07:43] LABS: BASO % 0.4 % (0.0-2.0); EOS # 0.4 K/uL (0.0-0.7); EOS % 4.4 % (0.0-4.0); LYMPH # 1.5 K/uL (1.0-4.3); LYMPH % 17.5 % (20.0-40.0); MEAN CELL VOLUME 71.1 fL (80.0-94.0); MEAN CORPUSCULAR HEMOGLOBIN 22.2 pg (27.0-31.0); MEAN CORPUSCULAR HGB CONC 31.2 g/dL (33.0-37.0); MEAN PLATELET VOLUME 9.2 fL (7.2-11.7); MONO # 0.9 K/uL (0.0-0.8); MONO % 10.3 % (0.0-10.0); RED CELL DISTRIBUTION WIDTH 25.7 % (11.5-14.5); WHITE BLOOD COUNT 8.5 K/uL (4.8-10.8)
[2016-11-17 08:06] LABS: CHLORIDE 96 mmol/L (98-107)
[2016-11-17 08:07] LABS: POTASSIUM 3.7 mmol/L (3.6-5.2); SODIUM 135 mmol/L (132-148)
[2016-11-17 08:09] LABS: ALB/GLOB RATIO 0.7 (1.0-2.1); ALKALINE PHOSPHATASE 94 U/L (38-126); AST/SGOT 114 U/L (17-59); BILIRUBIN,TOTAL 0.6 mg/dL (0.2-1.3); CARBON DIOXIDE 27 mmol/L (22-30); GFR AFRICAN-AMERICAN > 60; TOTAL PROTEIN 7.5 g/dL (6.3-8.3)
[2016-11-17 08:10] LABS: ALT/SGPT 91 U/L (21-72); BLOOD UREA NITROGEN 14 mg/dL (9-20); CALCIUM 8.5 mg/dl (8.6-10.4); GLUCOSE,RANDOM 98 mg/dL (75-110); MAGNESIUM 2.1 mg/dL (1.6-2.3); PHOSPHOROUS 2.9 mg/dL (2.5-4.5)
--- NOTE | 2016-11-17 08:10 | CP.PCM.PN ---
Subjective - Date & Time of Evaluation Date of Evaluation: 11/17/16 Time of Evaluation: 06:45 - Subjective Subjective: Vascular Surgery- Dr. Velasquez Pt S&E at bedside this AM. No acute events overnight. Pt states pain is more severe than expected, but tolerable. Denies N/V CP/SOB F/C blurry vision or DUQUE. Right bandage has dark non-blood strikethrough at the medial distal portion of dressing. Dressing C/D/I Objective - Vital Signs/Intake and Output Vital Signs (last 24 hours): Temp Pulse Resp BP Pulse Ox 98.1 F 65 18 122/48 L 96 11/16/16 23:10 11/16/16 23:10 11/16/16 23:10 11/16/16 23:10 11/16/16 23:10 Intake and Output: 11/17/16 11/17/16 06:59 18:59 Intake Total 460 Output Total 400 Balance 60 - Medications Medications: Current Medications Acetaminophen (Tylenol 325mg Tab) 650 mg PO Q6 PRN PRN Reason: Pain, moderate (4-7) Last Admin: 11/16/16 10:29 Dose: 650 mg Famotidine (Pepcid) 20 mg PO BID [facility] Last Admin: 11/16/16 17:35 Dose: 20 mg Heparin Sodium (Porcine) (Heparin) 5,000 units SC Q12 [facility] Last Admin: 11/16/16 21:25 Dose: 5,000 units Hydromorphone HCl (Dilaudid) 0.5 mg IVP Q6 PRN PRN Reason: Pain, severe (8-10) Last Admin: 11/14/16 12:33 Dose: 0.5 mg Piperacillin Sod/Tazobactam (Sod 3.375 gm/ Sodium Chloride) 100 mls @ 200 mls/ hr IVPB Q8H [facility] Last Admin: 11/17/16 02:11 Dose: 200 mls/hr Magnesium Hydroxide (Milk Of Magnesia) 30 ml PO DAILY PRN PRN Reason: Constipation Metoprolol Tartrate (Lopressor) 50 mg PO BID [facility] Last Admin: 11/16/16 17:35 Dose: 50 mg Oxycodone/Acetaminophen (Percocet 5/325 Mg Tab) 1 tab PO Q4H PRN PRN Reason: Pain, moderate (4-7) Stop: 11/18/16 15:05 Last Admin: 11/16/16 16:20 Dose: 1 tab Oxycodone/Acetaminophen (Percocet 5/325 Mg Tab) 2 tab PO Q4H PRN PRN Reason: Pain, severe (8-10) Stop: 11/18/16 15:05 Last Admin: 11/16/16 21:26 Dose: 2 tab - Labs Labs: 11/17/16 07:20 11/16/16 07:32 PT 18.3 SECONDS (9.7-12.2) H 11/15/16 05:53 INR 1.6 11/15/16 05:53 APTT 31 SECONDS (21-34) 11/15/16 05:53 - Constitutional Appears: Well, No Acute Distress - Head Exam Head Exam: ATRAUMATIC - Eye Exam Eye Exam: EOMI - ENT Exam ENT Exam: Mucous Membranes Dry - Respiratory Exam Respiratory Exam: NORMAL BREATHING PATTERN. absent: Accessory Muscle Use, Rhonchi, Wheezes - Cardiovascular Exam Cardiovascular Exam: +S1, +S2 - GI/Abdominal Exam GI & Abdominal Exam: Soft. absent: Tenderness - Extremities Exam Additional comments: b/L LE wrapping. Tenderness to touch. Right distal medial dressing has strikethrough. Dressing C/D/I Assessment and Plan - Assessment and Plan (Free Text) Assessment: 81M s/p b/L LE debridement POD 2 Plan: - dressing change today - new wound culture - Pain control regiment - medical management - possible graft next week - further Recs per Dr. Velasquez d/w Dr. Ron Guardado PGY1
[2016-11-17] MEDS: Oxycodone/Acetaminophen 5/325 mg Tab PO PRN ×2 (08:52→17:39)
[2016-11-17] MEDS ORDERED: Silver Sulfadiazine 1% Cream (20 gm) TOP ONE (12:09)
--- NOTE | 2016-11-17 15:41 | CP.PCM.PN ---
Subjective - Date & Time of Evaluation Date of Evaluation: 11/17/16 Time of Evaluation: 07:50 - Subjective Subjective: Medicine Note- Dr. Verdin's service Patient was seen and examined at bedside. Patient reports his pain is well controlled in his legs. Patient has no acute complaints at this time. No events overnight, per nursing. Objective - Vital Signs/Intake and Output Vital Signs (last 24 hours): Temp Pulse Resp BP Pulse Ox 98.6 F 61 18 148/88 95 11/17/16 07:35 11/17/16 07:35 11/17/16 07:35 11/17/16 07:35 11/17/16 07:35 Intake and Output: 11/17/16 11/17/16 06:59 18:59 Intake Total 460 Output Total 400 Balance 60 - Medications Medications: Current Medications Famotidine (Pepcid) 20 mg PO BID [facility] Last Admin: 11/17/16 09:43 Dose: 20 mg Heparin Sodium (Porcine) (Heparin) 5,000 units SC Q12 [facility] Last Admin: 11/17/16 09:43 Dose: 5,000 units Hydromorphone HCl (Dilaudid) 0.5 mg IVP Q6 PRN PRN Reason: Pain, severe (8-10) Last Admin: 11/14/16 12:33 Dose: 0.5 mg Piperacillin Sod/Tazobactam (Sod 3.375 gm/ Sodium Chloride) 100 mls @ 200 mls/ hr IVPB Q8H [facility] Last Admin: 11/17/16 09:43 Dose: 200 mls/hr Magnesium Hydroxide (Milk Of Magnesia) 30 ml PO DAILY PRN PRN Reason: Constipation Metoprolol Tartrate (Lopressor) 50 mg PO BID [facility] Last Admin: 11/17/16 09:44 Dose: 50 mg Oxycodone/Acetaminophen (Percocet 5/325 Mg Tab) 1 tab PO Q4H PRN PRN Reason: Pain, moderate (4-7) Stop: 11/18/16 15:05 Last Admin: 11/16/16 16:20 Dose: 1 tab Oxycodone/Acetaminophen (Percocet 5/325 Mg Tab) 2 tab PO Q4H PRN PRN Reason: Pain, severe (8-10) Stop: 11/18/16 15:05 Last Admin: 11/17/16 08:52 Dose: 2 tab - Labs Labs: 11/17/16 07:20 11/17/16 07:20 PT 18.3 SECONDS (9.7-12.2) H 11/15/16 05:53 INR 1.6 11/15/16 05:53 APTT 31 SECONDS (21-34) 11/15/16 05:53 - Constitutional Appears: Non-toxic, No Acute Distress - Head Exam Head Exam: ATRAUMATIC, NORMAL INSPECTION, NORMOCEPHALIC - Eye Exam Pupil Exam: NORMAL ACCOMODATION, PERRL - ENT Exam ENT Exam: Mucous Membranes Moist - Respiratory Exam Respiratory Exam: Clear to Ausculation Bilateral, NORMAL BREATHING PATTERN. absent: Prolonged Expiratory Phase, Rales, Rhonchi, Wheezes - Cardiovascular Exam Cardiovascular Exam: REGULAR RHYTHM, +S1, +S2 - GI/Abdominal Exam GI & Abdominal Exam: Soft, Normal Bowel Sounds. absent: Tenderness, Diminished Bowel Sounds, Hypoactive Bowel Sounds - Extremities Exam Additional comments: b/L LE wrapping. Tenderness to touch. Right distal medial dressing has strikethrough. Dressing C/D/I - Neurological Exam Neurological Exam: Alert, Awake, Oriented x3 - Psychiatric Exam Psychiatric exam: Normal Affect, Normal Mood Assessment and Plan - Assessment and Plan (Free Text) Assessment: Bilateral LE leg ulcers Dr. Velasquez consulted, help appreciated - s/p OR 11/15 versajet wound debridement of anterior bilateral lower extremities 11/15 s/p OR for debridement Cultures sent Dr. Allison consulted, help appreciated Zosyn 3.375 mg IVPB Q8 - started 11/15 Dilaudid 0.5mg IVP prn severe pain Percocet 1 tab PO Q4 prn moderate pain Per surgery, will reculture wounds in 2 days. If clear of infection, will plan for skin graft. Anemia- stable Hbg 8.4 ->9.1->8.5-->9.6 one more unit of PRBC ordered today / s/p transfusion 1 U PRBC on 11/13. Vitamin B12 normal Iron 12, % iron 5%, ferritin 94 started on feosol 325mg PO Daily Hx Valve replacement ASA and Plavix held due to surgical plans Dr. Duggan consulted, help appreciated HTN Lopressor 50mg PO BID Prophylaxis Heparin 5000 U SC Q12- held due to anemia needing transfusion, will r/o bleed Pepcid 20mg PO BID NO SCDS to to LE leg ulcers Heart healthy diet
--- NOTE | 2016-11-17 16:40 | PN ---
SUBJECTIVE: The patient denies any shortness of breath or chest discomfort. No reported arrhythmia. PHYSICAL EXAM: VITAL SIGNS: Blood pressure 142/88, heart rate 61, temperature 98.6, respirations 18. HEENT: Pale conjunctivae. CHEST: Clear. HEART: S1 and S2 regular, grade 4/6 ejection systolic murmur over left sternal border. ABDOMEN: Soft. EXTREMITIES: Dressing is applied to both leg ulcers that were recently debrided. LABORATORY DATA: Hemoglobin and hematocrit 10.6 and 34.0. White count and platelet count are within normal limits. Today's SMA-7 is within normal limits except for chloride of 96. ASSESSMENT: 1. Status post bilateral leg ulcer treatment. 2. 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 Clinically, there is mild aortic stenosis. 3. Anemia. RECOMMENDATIONS: Continue current IV Zosyn at 3.375 g intravenously q. 8 hours, continue p.r.n. Percocet and p.r.n. IV Dilaudid, continue subcutaneous heparin 5000 units twice a day, Lopressor 50 mg twice a day. Tobias Duggan MD
--- NOTE | 2016-11-17 18:28 | CP.PCM.PN ---
Subjective - Date & Time of Evaluation Date of Evaluation: 11/17/16 Time of Evaluation: 10:00 - Subjective Subjective: cultures noted iv antibiotics adjusted Objective - Vital Signs/Intake and Output Vital Signs (last 24 hours): Temp Pulse Resp BP Pulse Ox 98.4 F 65 20 129/65 99 11/17/16 18:00 11/17/16 18:00 11/17/16 18:00 11/17/16 18:00 11/17/16 18:00 Intake and Output: 11/17/16 11/17/16 06:59 18:59 Intake Total 460 Output Total 400 Balance 60 - Medications Medications: Current Medications Famotidine (Pepcid) 20 mg PO BID [facility] Last Admin: 11/17/16 17:39 Dose: 20 mg Ferrous Sulfate (Feosol) 325 mg PO DAILY [facility] Heparin Sodium (Porcine) (Heparin) 5,000 units SC Q12 [facility] Last Admin: 11/17/16 09:43 Dose: 5,000 units Cefepime HCl (Maxipime Iv 1 Gm Premix) 1 gm in 50 mls @ 100 mls/hr IVPB Q12H [facility] Vancomycin/Sodium Chloride (Vancocin) 1 gm in 200 mls @ 133 mls/hr IVPB Q12H [facility] Stop: 11/22/16 22:01 Magnesium Hydroxide (Milk Of Magnesia) 30 ml PO DAILY PRN PRN Reason: Constipation Metoprolol Tartrate (Lopressor) 50 mg PO BID [facility] Last Admin: 11/17/16 17:39 Dose: 50 mg Oxycodone/Acetaminophen (Percocet 5/325 Mg Tab) 1 tab PO Q4H PRN PRN Reason: Pain, moderate (4-7) Stop: 11/18/16 15:05 Last Admin: 11/17/16 17:39 Dose: 1 tab Oxycodone/Acetaminophen (Percocet 5/325 Mg Tab) 2 tab PO Q4H PRN PRN Reason: Pain, severe (8-10) Stop: 11/18/16 15:05 Last Admin: 11/17/16 08:52 Dose: 2 tab - Labs Labs: 11/17/16 07:20 11/17/16 07:20 PT 18.3 SECONDS (9.7-12.2) H 11/15/16 05:53 INR 1.6 11/15/16 05:53 APTT 31 SECONDS (21-34) 11/15/16 05:53 - Constitutional Appears: Non-toxic, Chronically Ill - Head Exam Head Exam: NORMOCEPHALIC - Eye Exam Eye Exam: PERRL - ENT Exam ENT Exam: Mucous Membranes Dry - Neck Exam Neck Exam: absent: Lymphadenopathy - Respiratory Exam Respiratory Exam: Decreased Breath Sounds - Cardiovascular Exam Cardiovascular Exam: REGULAR RHYTHM Assessment and Plan (1) Cellulitis Status: Acute (2) Dehydration Status: Acute - Assessment and Plan (Free Text) Assessment: cont vanco/cefepime
--- NOTE | 2016-11-17 19:10 | CARD ---
APPROVED REPORT EKG Measurement Heart [id number] <Conclusion> Sinus rhythm with premature atrial complexes Left atrial enlargement Anterior infarct, age undetermined Abnormal ECG
--- NOTE | 2016-11-17 19:19 | CARD ---
APPROVED REPORT EKG Measurement Heart [id number] <Conclusion> Normal sinus rhythm with sinus arrhythmia Possible Left atrial enlargement Left ventricular hypertrophy Nonspecific ST and T wave abnormality Abnormal ECG
[2016-11-17] MEDS ORDERED: Vancomycin 1 gm/NS 200 ml 1 GM/200 ML BAG IVPB SCH (19:30)
[2016-11-17] MEDS: Cefepime IV 1 gm in Dextrose 1 GM/50 ML BAG IVPB SCH (21:31)
[2016-11-17] MEDS: Vancomycin 1 gm/NS 200 ml 1 GM/200 ML BAG IVPB SCH (21:31)
[2016-11-18] MEDS: Cefepime IV 1 gm in Dextrose 1 GM/50 ML BAG IVPB SCH ×2 (07:15→19:17)
[2016-11-18] MEDS: Oxycodone/Acetaminophen 5/325 mg Tab PO PRN ×2 (07:50→21:51)
--- NOTE | 2016-11-18 08:28 | CP.PCM.PN ---
Subjective - Date & Time of Evaluation Date of Evaluation: 11/18/16 Time of Evaluation: 07:00 - Subjective Subjective: Patient seen and examined this morning. Reports improvement of pain along legs b /l. No acute events over night. Denies chest pain/SOB, n/v. B/l lower extremity dressings c/d/i. Dressings were changed and wound examined yesterday afternoon. Wound sites appear to be improving. Repeat cultures were taken from both feet. Objective - Vital Signs/Intake and Output Vital Signs (last 24 hours): Temp Pulse Resp BP Pulse Ox 98.5 F 65 20 146/69 98 11/17/16 23:20 11/17/16 23:20 11/17/16 23:20 11/18/16 04:00 11/17/16 23:20 Intake and Output: 11/18/16 11/18/16 06:59 18:59 Output Total 600 Balance -600 - Medications Medications: Current Medications Famotidine (Pepcid) 20 mg PO BID [facility] Last Admin: 11/17/16 17:39 Dose: 20 mg Ferrous Sulfate (Feosol) 325 mg PO DAILY [facility] Heparin Sodium (Porcine) (Heparin) 5,000 units SC Q12 [facility] Last Admin: 11/17/16 21:31 Dose: 5,000 units Cefepime HCl (Maxipime Iv 1 Gm Premix) 1 gm in 50 mls @ 100 mls/hr IVPB Q12H [facility] Last Admin: 11/18/16 07:15 Dose: 100 mls/hr Vancomycin/Sodium Chloride (Vancocin) 1 gm in 200 mls @ 133 mls/hr IVPB Q12H [facility] Stop: 11/22/16 22:01 Last Admin: 11/17/16 21:31 Dose: 133 mls/hr Magnesium Hydroxide (Milk Of Magnesia) 30 ml PO DAILY PRN PRN Reason: Constipation Metoprolol Tartrate (Lopressor) 50 mg PO BID [facility] Last Admin: 11/17/16 17:39 Dose: 50 mg Oxycodone/Acetaminophen (Percocet 5/325 Mg Tab) 1 tab PO Q4H PRN PRN Reason: Pain, moderate (4-7) Stop: 11/18/16 15:05 Last Admin: 11/17/16 17:39 Dose: 1 tab Oxycodone/Acetaminophen (Percocet 5/325 Mg Tab) 2 tab PO Q4H PRN PRN Reason: Pain, severe (8-10) Stop: 11/18/16 15:05 Last Admin: 11/18/16 07:50 Dose: 2 tab - Labs Labs: 11/17/16 07:20 11/17/16 07:20 PT 18.3 SECONDS (9.7-12.2) H 11/15/16 05:53 INR 1.6 11/15/16 05:53 APTT 31 SECONDS (21-34) 11/15/16 05:53 - Constitutional Appears: No Acute Distress - Head Exam Head Exam: NORMOCEPHALIC - Eye Exam Eye Exam: Normal appearance - ENT Exam ENT Exam: Mucous Membranes Moist - Respiratory Exam Respiratory Exam: NORMAL BREATHING PATTERN - Cardiovascular Exam Cardiovascular Exam: +S1, +S2 - GI/Abdominal Exam GI & Abdominal Exam: Soft - Extremities Exam Additional comments: dressings are c/d/i - Neurological Exam Neurological Exam: Alert, Awake, Oriented x3 - Psychiatric Exam Psychiatric exam: Normal Mood - Skin Skin Exam: Dry, Warm Assessment and Plan - Assessment and Plan (Free Text) Assessment: 81M s/p b/L LE debridement POD 3 -F/u wound cultures - Pain control - medical management as per primary - possible graft next week if cultures negative - further Recs per Dr. Ron Epps PGY-2
[2016-11-18] MEDS: Vancomycin 1 gm/NS 200 ml 1 GM/200 ML BAG IVPB SCH ×2 (09:11→21:42)
--- NOTE | 2016-11-18 19:15 | PN ---
SUBJECTIVE: The patient denies any chest pain. He complains of bilateral leg pain. PHYSICAL EXAMINATION VITAL SIGNS: Blood pressure 159/77, heart rate 64, temperature 97.8, respirations 18. HEENT: Normocephalic. CHEST: Clear. HEART: S1 and S2 regular. EXTREMITIES: Dressings applied to both lower extremities. ASSESSMENT: 1. Status post bilateral leg ulcer and debridement. 2. Status post aortic valve replacement. Clinically, the patient has mild aortic stenosis. 3. Anemia, status post packed RBC transfusion. RECOMMENDATION: Continue current ferrous sulfate at 325 mg once a day, subcutaneous heparin 5000 units twice a day, Lopressor 50 mg twice a day, continue IV Rocephin and IV vancomycin. The wound culture of lower extremities reveal both Enterococcus faecalis as well as Klebsiella pneumoniae. Blood culture has been negative . Tobias Duggan MD
[2016-11-19] MEDS: Cefepime IV 1 gm in Dextrose 1 GM/50 ML BAG IVPB SCH ×2 (06:02→20:00)
[2016-11-19] MEDS: Oxycodone/Acetaminophen 5/325 mg Tab PO PRN ×3 (08:03→22:02)
--- NOTE | 2016-11-19 09:21 | CP.PCM.PN ---
Subjective - Date & Time of Evaluation Date of Evaluation: 11/19/16 Time of Evaluation: 07:00 - Subjective Subjective: VASCULAR SURGERY PROGRESS NOTE FOR DR. LOPEZ Patient seen and examined at bedside. He reports pain in his bilateral legs and is requesting pain medication which was then given. Objective - Vital Signs/Intake and Output Vital Signs (last 24 hours): Temp Pulse Resp BP Pulse Ox 97.6 F 68 18 160/74 H 100 11/19/16 08:23 11/19/16 08:23 11/19/16 08:23 11/19/16 08:23 11/19/16 08:23 Intake and Output: 11/19/16 11/19/16 06:59 18:59 Intake Total 730 Output Total 1300 Balance -570 - Medications Medications: Current Medications Famotidine (Pepcid) 20 mg PO BID [facility] Last Admin: 11/18/16 19:00 Dose: 20 mg Ferrous Sulfate (Feosol) 325 mg PO DAILY [facility] Heparin Sodium (Porcine) (Heparin) 5,000 units SC Q12 [facility] Last Admin: 11/18/16 21:46 Dose: 5,000 units Cefepime HCl (Maxipime Iv 1 Gm Premix) 1 gm in 50 mls @ 100 mls/hr IVPB Q12H [facility] Last Admin: 11/19/16 06:02 Dose: 100 mls/hr Vancomycin/Sodium Chloride (Vancocin) 1 gm in 200 mls @ 133 mls/hr IVPB Q12H [facility] Stop: 11/22/16 22:01 Last Admin: 11/18/16 21:42 Dose: 133 mls/hr Magnesium Hydroxide (Milk Of Magnesia) 30 ml PO DAILY PRN PRN Reason: Constipation Metoprolol Tartrate (Lopressor) 50 mg PO BID [facility] Last Admin: 11/18/16 19:00 Dose: 50 mg Oxycodone/Acetaminophen (Percocet 5/325 Mg Tab) 1 tab PO Q6H PRN PRN Reason: Pain, moderate (4-7) Stop: 11/21/16 19:47 Last Admin: 11/19/16 08:03 Dose: 1 tab - Labs Labs: 11/17/16 07:20 11/17/16 07:20 PT 18.3 SECONDS (9.7-12.2) H 11/15/16 05:53 INR 1.6 11/15/16 05:53 APTT 31 SECONDS (21-34) 11/15/16 05:53 - Constitutional Appears: Non-toxic, No Acute Distress - Head Exam Head Exam: ATRAUMATIC, NORMAL INSPECTION - Respiratory Exam Respiratory Exam: NORMAL BREATHING PATTERN. absent: Respiratory Distress - Cardiovascular Exam Cardiovascular Exam: +S1, +S2 - Extremities Exam Additional comments: dressings clean/dry/intact bilaterally - Neurological Exam Neurological Exam: Alert, Awake, Oriented x3 - Psychiatric Exam Psychiatric exam: Normal Affect, Normal Mood - Skin Skin Exam: Normal Color, Warm Assessment and Plan - Assessment and Plan (Free Text) Assessment: 81yo M s/p bilateral LE debridement POD#4 - Wound cx from 11/17: gram - rods and the other one is still pending - Pain control PRN - Will get new skin cx tomorrow and change dressing - Possible skin graft next week if cultures negative - Medical management per primary team - Further recs per Dr. Ron Rao PGY-3
[2016-11-19] MEDS: Vancomycin 1 gm/NS 200 ml 1 GM/200 ML BAG IVPB SCH (09:22)
--- NOTE | 2016-11-19 14:39 | CP.PCM.PN ---
Subjective - Date & Time of Evaluation Date of Evaluation: 11/19/16 Time of Evaluation: 07:00 - Subjective Subjective: mdro from leg wound iv rx in progress blood c/s so far neg Objective - Vital Signs/Intake and Output Vital Signs (last 24 hours): Temp Pulse Resp BP Pulse Ox 97.6 F 65 18 154/78 H 100 11/19/16 08:23 11/19/16 11:00 11/19/16 08:23 11/19/16 11:00 11/19/16 08:23 Intake and Output: 11/19/16 11/19/16 06:59 18:59 Intake Total 730 Output Total 1300 Balance -570 - Medications Medications: Current Medications Famotidine (Pepcid) 20 mg PO BID [facility] Last Admin: 11/19/16 09:23 Dose: 20 mg Ferrous Sulfate (Feosol) 325 mg PO DAILY [facility] Last Admin: 11/19/16 09:23 Dose: 325 mg Heparin Sodium (Porcine) (Heparin) 5,000 units SC Q12 [facility] Last Admin: 11/19/16 09:22 Dose: 5,000 units Cefepime HCl (Maxipime Iv 1 Gm Premix) 1 gm in 50 mls @ 100 mls/hr IVPB Q12H [facility] Last Admin: 11/19/16 06:02 Dose: 100 mls/hr Vancomycin/Sodium Chloride (Vancocin) 1 gm in 200 mls @ 133 mls/hr IVPB Q12H [facility] Stop: 11/22/16 22:01 Last Admin: 11/19/16 09:22 Dose: 133 mls/hr Magnesium Hydroxide (Milk Of Magnesia) 30 ml PO DAILY PRN PRN Reason: Constipation Metoprolol Tartrate (Lopressor) 50 mg PO BID [facility] Last Admin: 11/19/16 09:23 Dose: 50 mg Oxycodone/Acetaminophen (Percocet 5/325 Mg Tab) 1 tab PO Q6H PRN PRN Reason: Pain, moderate (4-7) Stop: 11/21/16 19:47 Last Admin: 11/19/16 08:03 Dose: 1 tab - Labs Labs: 11/17/16 07:20 11/17/16 07:20 PT 18.3 SECONDS (9.7-12.2) H 11/15/16 05:53 INR 1.6 11/15/16 05:53 APTT 31 SECONDS (21-34) 11/15/16 05:53 - Constitutional Appears: Non-toxic - Head Exam Head Exam: NORMOCEPHALIC - Eye Exam Eye Exam: PERRL - ENT Exam ENT Exam: Mucous Membranes Dry - Neck Exam Neck Exam: absent: Lymphadenopathy - Respiratory Exam Respiratory Exam: Decreased Breath Sounds - Cardiovascular Exam Cardiovascular Exam: REGULAR RHYTHM - GI/Abdominal Exam GI & Abdominal Exam: Distended, Soft - Rectal Exam Rectal Exam: Deferred - Exam Exam: NORMAL INSPECTION - Extremities Exam Extremities Exam: Tenderness. absent: Calf Tenderness, Pedal Edema Assessment and Plan (1) Cellulitis Status: Acute (2) Dehydration Status: Acute - Assessment and Plan (Free Text) Plan: cont iv rx and wound care
[2016-11-19] MEDS: Amikacin 500 MG in Dextrose 5% In Water 100 ML IVPB SCH (17:55)
--- NOTE | 2016-11-19 19:57 | PN ---
DATE: 11/19/2016 SUBJECTIVE: The patient denies any recent chest pain or shortness of breath. PHYSICAL EXAMINATION VITAL SIGNS: Blood pressure 154/78, heart rate 65, temperature 97.6, respiration 18. HEENT: [place] conjunctivae. CHEST: Clear. HEART: Regular. Grade 4/6 ejection systolic murmur over left sternal border. ABDOMEN: Soft. EXTREMITIES: Dressing is applied to both lower extremities. ASSESSMENT: 1. Status post bilateral leg ulcer debridement. 2. 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 Currently, clinically, has mild aortic stenosis. 3. Anemia status post RBC transfusion. 4. Multimicrobial bilateral leg infection with Pseudomonas, Enterococcus faecalis, and Klebsiella pneumoniae. RECOMMENDATIONS: Continue IV amikacin and IV ampicillin. Continue subcutaneous heparin 5000 units twice a day, Lopressor 50 mg twice a day, IV Maxipime 1 g q. 12 hours. Obtain CBC in a.m. I did to order double portion of diet as per patient's request. Tobias Duggan MD
--- NOTE | 2016-11-19 21:19 | PN ---
The patient needs supportive care, antibiotic. Brandy Verdin MD
[2016-11-20] MEDS: Amikacin 500 MG in Dextrose 5% In Water 100 ML IVPB SCH ×2 (03:55→16:00)
[2016-11-20] MEDS: Cefepime IV 1 gm in Dextrose 1 GM/50 ML BAG IVPB SCH ×2 (07:37→18:32)
[2016-11-20 07:39] LABS: MEAN CORPUSCULAR HEMOGLOBIN 22.3 pg (27.0-31.0); MEAN CORPUSCULAR HGB CONC 31.4 g/dL (33.0-37.0); MEAN PLATELET VOLUME 9.1 fL (7.2-11.7); RED CELL DISTRIBUTION WIDTH 25.5 % (11.5-14.5); WHITE BLOOD COUNT 8.3 K/uL (4.8-10.8)
[2016-11-20] MEDS ORDERED: Silver Sulfadiazine 1% Cream (20 gm) TOP ONE (07:59)
[2016-11-20] MEDS: Oxycodone/Acetaminophen 5/325 mg Tab PO PRN ×2 (08:43→20:33)
--- NOTE | 2016-11-20 10:56 | CP.PCM.PN ---
Subjective - Date & Time of Evaluation Date of Evaluation: 11/20/16 Time of Evaluation: 07:00 - Subjective Subjective: Medicine Note- Dr. Verdin's service Patient was seen and examined at bedside. Patient reports his pain in his legs. He thinks that the pain medication is not helping him much. Patient has no other acute complaints at this time. Patient was stating that he would like the dressings on his legs to be changed. Denies CP, SOB, abd pain. No events overnight, per nursing. Objective - Vital Signs/Intake and Output Vital Signs (last 24 hours): Temp Pulse Resp BP Pulse Ox 97.9 F 71 18 160/77 H 95 11/20/16 07:25 11/20/16 07:25 11/20/16 07:25 11/20/16 07:25 11/20/16 07:25 Intake and Output: 11/20/16 11/20/16 06:59 18:59 Output Total 900 Balance -900 - Medications Medications: Current Medications Famotidine (Pepcid) 20 mg PO BID [facility] Last Admin: 11/20/16 10:04 Dose: 20 mg Ferrous Sulfate (Feosol) 325 mg PO DAILY [facility] Last Admin: 11/20/16 10:04 Dose: 325 mg Heparin Sodium (Porcine) (Heparin) 5,000 units SC Q12 [facility] Last Admin: 11/20/16 10:05 Dose: 5,000 units Cefepime HCl (Maxipime Iv 1 Gm Premix) 1 gm in 50 mls @ 100 mls/hr IVPB Q12H [facility] Last Admin: 11/20/16 07:37 Dose: 100 mls/hr Ampicillin 2 gm/ Sodium (Chloride) 100 mls @ 50 mls/hr IVPB Q6H [facility] Last Admin: 11/20/16 08:13 Dose: 50 mls/hr Amikacin Sulfate 500 mg/ (Dextrose) 102 mls @ 204 mls/hr IVPB Q12H [facility] Last Admin: 11/20/16 03:55 Dose: 204 mls/hr Magnesium Hydroxide (Milk Of Magnesia) 30 ml PO DAILY PRN PRN Reason: Constipation Metoprolol Tartrate (Lopressor) 50 mg PO BID [facility] Last Admin: 11/20/16 10:10 Dose: 50 mg Oxycodone/Acetaminophen (Percocet 5/325 Mg Tab) 1 tab PO Q6H PRN PRN Reason: Pain, moderate (4-7) Stop: 11/21/16 19:47 Last Admin: 11/20/16 08:43 Dose: 1 tab - Labs Labs: 11/20/16 07:20 11/17/16 07:20 PT 18.3 SECONDS (9.7-12.2) H 11/15/16 05:53 INR 1.6 11/15/16 05:53 APTT 31 SECONDS (21-34) 11/15/16 05:53 - Constitutional Appears: Non-toxic, No Acute Distress - Head Exam Head Exam: NORMAL INSPECTION - Eye Exam Eye Exam: EOMI Pupil Exam: NORMAL ACCOMODATION - ENT Exam ENT Exam: Mucous Membranes Moist - Respiratory Exam Respiratory Exam: Clear to Ausculation Bilateral, NORMAL BREATHING PATTERN. absent: Rales, Rhonchi, Wheezes, Respiratory Distress - Cardiovascular Exam Cardiovascular Exam: REGULAR RHYTHM, +S1, +S2 - GI/Abdominal Exam GI & Abdominal Exam: Soft, Normal Bowel Sounds. absent: Distended, Firm, Guarding, Tenderness - Extremities Exam Additional comments: leg b/l dressings, need to be changed are saturated with clear fluid leakage from wounds. ROM, sensation intact. able to move all extremities. - Back Exam Back Exam: NORMAL INSPECTION - Neurological Exam Neurological Exam: Alert, Awake, CN II-XII Intact, Oriented x3 - Psychiatric Exam Psychiatric exam: Normal Affect, Normal Mood - Skin Skin Exam: Dry, Intact, Normal Color, Warm Assessment and Plan - Assessment and Plan (Free Text) Assessment: Bilateral LE leg ulcers Dr. Velasquez consulted, help appreciated - s/p OR 11/15 versajet wound debridement of anterior bilateral lower extremities 11/15 s/p OR for debridement Wounds cultures 11/17 - Pseudomonas Wound cultures 11/15 - Pseudomonas, EFaecelia, Klebsiella Dr. Allison consulted, help appreciated Abx as follows: 1. Amikkacin 500 mg IVPB q12 hours (started 11/19) 2. Ampicillin 50mg IVPB Q6 hours (started 11/19) 3. Cefepime 1gram IVPB Q12 hours (started 11/17) Percocet 1 tab PO Q4 prn moderate pain Per surgery, will reculture wounds in 2 days. If clear of infection, will plan for skin graft. f/u am labs Anemia- stable Hbg 11.0 (was 8.4 on admission) one more unit of PRBC ordered today 11/15 s/p transfusion 1 U PRBC on 11/13. Vitamin B12 normal Iron 12, % iron 5%, ferritin 94 started on feosol 325mg PO Daily Hx Valve replacement ASA and Plavix held due to surgical plans Dr. Duggan consulted, help appreciated - will follow up to see if ok to resume asa/plavix HTN Lopressor 50mg PO BID Constipation Milk of Magnesia Prophylaxis Heparin 5000 U SC Q12 Pepcid 20mg PO BID NO SCDS to to LE leg ulcers Heart healthy diet Discussed with Dr. Verdin. All management per Dr. Verdin.
[2016-11-20 11:33] LABS: CHLORIDE 98 mmol/L (98-107); SODIUM 138 mmol/L (132-148)
[2016-11-20 11:34] LABS: POTASSIUM 3.9 mmol/L (3.6-5.2)
[2016-11-20 11:36] LABS: ALB/GLOB RATIO 0.8 (1.0-2.1); ALKALINE PHOSPHATASE 91 U/L (38-126); AST/SGOT 44 U/L (17-59); BILIRUBIN,TOTAL 0.5 mg/dL (0.2-1.3); BLOOD UREA NITROGEN 10 mg/dL (9-20); CARBON DIOXIDE 32 mmol/L (22-30); GFR AFRICAN-AMERICAN > 60; GLUCOSE,RANDOM 131 mg/dL (75-110); PHOSPHOROUS 2.4 mg/dL (2.5-4.5); TOTAL PROTEIN 6.8 g/dL (6.3-8.3)
[2016-11-20 11:37] LABS: ALT/SGPT 64 U/L (21-72); CALCIUM 8.7 mg/dl (8.6-10.4); MAGNESIUM 1.9 mg/dL (1.6-2.3)
--- NOTE | 2016-11-20 13:58 | PN ---
SUBJECTIVE: The patient has no chest pain or shortness of breath. He has significant discharge from both lower extremities. PHYSICAL EXAMINATION VITAL SIGNS: Blood pressure 160/77, heart rate 71, temperature 97.9, respiration 18. HEENT: [place] conjunctivae. CHEST: Clear. HEART: S1 and S2. Regular. EXTREMITIES: Bilateral extremities. LABORATORY DATA: Hemoglobin and hematocrit 11 and 35. White count and platelet count are within normal limits. SMA-7 is within normal limits except for carbon dioxide of , glucose 131. ASSESSMENT: 1. Bilateral leg ulcer treatment. 2. Anemia. 3. Status post aortic valve replacement. CONDITIONS: Continue the IV antibiotics. Continue ferrous sulfate, Lopressor, subcutaneous heparin. The patient was for long-term IV antibiotics and subacute rehab. Tobias Duggan MD
--- NOTE | 2016-11-20 15:05 | CP.PCM.PN ---
Subjective - Date & Time of Evaluation Date of Evaluation: 11/20/16 Time of Evaluation: 06:50 - Subjective Subjective: SURGERY NOTE FOR DR. LOPEZ 81M seen and examined at bedside. Sitting up comfortable at bedside. No acute events over night. Objective - Vital Signs/Intake and Output Vital Signs (last 24 hours): Temp Pulse Resp BP Pulse Ox 97.9 F 71 18 160/77 H 95 11/20/16 07:25 11/20/16 07:25 11/20/16 07:25 11/20/16 07:25 11/20/16 07:25 Intake and Output: 11/20/16 11/20/16 06:59 18:59 Output Total 900 Balance -900 - Medications Medications: Current Medications Aspirin (Aspirin Chewable) 81 mg PO DAILY [facility] Clopidogrel Bisulfate (Plavix) 75 mg PO DAILY [facility] Famotidine (Pepcid) 20 mg PO BID [facility] Last Admin: 11/20/16 10:04 Dose: 20 mg Ferrous Sulfate (Feosol) 325 mg PO DAILY [facility] Last Admin: 11/20/16 10:04 Dose: 325 mg Heparin Sodium (Porcine) (Heparin) 5,000 units SC Q12 [facility] Last Admin: 11/20/16 10:05 Dose: 5,000 units Cefepime HCl (Maxipime Iv 1 Gm Premix) 1 gm in 50 mls @ 100 mls/hr IVPB Q12H [facility] Last Admin: 11/20/16 07:37 Dose: 100 mls/hr Ampicillin 2 gm/ Sodium (Chloride) 100 mls @ 50 mls/hr IVPB Q6H [facility] Last Admin: 11/20/16 14:50 Dose: 50 mls/hr Amikacin Sulfate 500 mg/ (Dextrose) 102 mls @ 204 mls/hr IVPB Q12H [facility] Last Admin: 11/20/16 03:55 Dose: 204 mls/hr Magnesium Hydroxide (Milk Of Magnesia) 30 ml PO DAILY PRN PRN Reason: Constipation Metoprolol Tartrate (Lopressor) 50 mg PO BID [facility] Last Admin: 11/20/16 10:10 Dose: 50 mg Oxycodone/Acetaminophen (Percocet 5/325 Mg Tab) 1 tab PO Q4H PRN PRN Reason: Pain, moderate (4-7) Stop: 11/21/16 19:47 - Labs Labs: 11/20/16 07:20 11/20/16 11:15 PT 18.3 SECONDS (9.7-12.2) H 11/15/16 05:53 INR 1.6 11/15/16 05:53 APTT 31 SECONDS (21-34) 11/15/16 05:53 - Constitutional Appears: Non-toxic, No Acute Distress - Respiratory Exam Respiratory Exam: Clear to Ausculation Bilateral, NORMAL BREATHING PATTERN - Cardiovascular Exam Cardiovascular Exam: REGULAR RHYTHM, +S1, +S2 - Extremities Exam Additional comments: Dressings clean dry intact - Neurological Exam Neurological Exam: Alert, Awake Assessment and Plan - Assessment and Plan (Free Text) Assessment: 81yo M s/p bilateral LE debridement POD#5 - Wound cx from 11/17: pseudomonas *2 - Pain control PRN - Will get new skin cx today and change dressing - Possible skin graft next week depending on repeat wound culture Further recs discuss with Dr. Ron Barrera, PGY2
[2016-11-20] MEDS: Magnesium Hydroxide Susp 30 ml UD PO PRN (20:35)
[2016-11-21] MEDS: Amikacin 500 MG in Dextrose 5% In Water 100 ML IVPB SCH ×2 (04:25→14:45)
[2016-11-21] MEDS: Oxycodone/Acetaminophen 5/325 mg Tab PO PRN (07:53)
[2016-11-21 08:13] LABS: BASO # 0.1 K/uL (0.0-0.2); BASO % 0.8 % (0.0-2.0); EOS # 0.3 K/uL (0.0-0.7); EOS % 4.2 % (0.0-4.0); HEMATOCRIT 31.8 % (35.0-51.0); LYMPH # 2.1 K/uL (1.0-4.3); LYMPH % 25.2 % (20.0-40.0); MEAN CELL VOLUME 71.3 fL (80.0-94.0); MEAN CORPUSCULAR HGB CONC 30.9 g/dL (33.0-37.0); MEAN PLATELET VOLUME 9.1 fL (7.2-11.7); MONO # 1.2 K/uL (0.0-0.8); MONO % 14.2 % (0.0-10.0); RED CELL DISTRIBUTION WIDTH 24.6 % (11.5-14.5); WHITE BLOOD COUNT 8.2 K/uL (4.8-10.8)
--- NOTE | 2016-11-21 08:36 | CP.PCM.PN ---
Subjective - Date & Time of Evaluation Date of Evaluation: 11/21/16 Time of Evaluation: 06:40 - Subjective Subjective: Patient seen and examined, no complaints. Bilateral Lower extremity dressings c/ d/i. No acute events over night. Objective - Vital Signs/Intake and Output Vital Signs (last 24 hours): Temp Pulse Resp BP Pulse Ox 98.2 F 71 20 150/58 L 99 11/21/16 00:00 11/21/16 00:00 11/21/16 00:00 11/21/16 00:00 11/21/16 00:00 Intake and Output: 11/21/16 11/21/16 06:59 18:59 Output Total 750 Balance -750 - Medications Medications: Current Medications Aspirin (Aspirin Chewable) 81 mg PO DAILY [facility] Clopidogrel Bisulfate (Plavix) 75 mg PO DAILY [facility] Famotidine (Pepcid) 20 mg PO BID [facility] Last Admin: 11/20/16 18:28 Dose: 20 mg Ferrous Sulfate (Feosol) 325 mg PO DAILY [facility] Last Admin: 11/20/16 10:04 Dose: 325 mg Heparin Sodium (Porcine) (Heparin) 5,000 units SC Q12 [facility] Last Admin: 11/20/16 21:49 Dose: 5,000 units Cefepime HCl (Maxipime Iv 1 Gm Premix) 1 gm in 50 mls @ 100 mls/hr IVPB Q12H [facility] Last Admin: 11/20/16 18:32 Dose: 100 mls/hr Ampicillin 2 gm/ Sodium (Chloride) 100 mls @ 50 mls/hr IVPB Q6H [facility] Last Admin: 11/21/16 04:24 Dose: 50 mls/hr Amikacin Sulfate 500 mg/ (Dextrose) 102 mls @ 204 mls/hr IVPB Q12H [facility] Last Admin: 11/21/16 04:25 Dose: 204 mls/hr Magnesium Hydroxide (Milk Of Magnesia) 30 ml PO DAILY PRN PRN Reason: Constipation Last Admin: 11/20/16 20:35 Dose: 30 ml Metoprolol Tartrate (Lopressor) 50 mg PO BID [facility] Last Admin: 11/20/16 18:28 Dose: 50 mg Oxycodone/Acetaminophen (Percocet 5/325 Mg Tab) 1 tab PO Q4H PRN PRN Reason: Pain, moderate (4-7) Stop: 11/21/16 19:47 Last Admin: 11/21/16 07:53 Dose: 1 tab - Labs Labs: 11/21/16 07:58 11/20/16 11:15 PT 18.3 SECONDS (9.7-12.2) H 11/15/16 05:53 INR 1.6 11/15/16 05:53 APTT 31 SECONDS (21-34) 11/15/16 05:53 - Constitutional Appears: No Acute Distress - Head Exam Head Exam: NORMOCEPHALIC - Eye Exam Eye Exam: Normal appearance - ENT Exam ENT Exam: Mucous Membranes Moist - Respiratory Exam Respiratory Exam: NORMAL BREATHING PATTERN - Cardiovascular Exam Cardiovascular Exam: +S1, +S2 - GI/Abdominal Exam GI & Abdominal Exam: Soft. absent: Tenderness - Extremities Exam Extremities Exam: Pedal Edema Additional comments: Dressings c/d/i b/l - Neurological Exam Neurological Exam: Alert, Awake, Oriented x3 - Psychiatric Exam Psychiatric exam: Normal Mood - Skin Skin Exam: Dry, Intact, Warm Assessment and Plan - Assessment and Plan (Free Text) Assessment: 81yo M s/p bilateral LE debridement POD#6 - Wound cx from 11/17: pseudomonas x2 -F/u repeat wound cultures -Gabapentin - Pain control PRN - Possible skin graft next week depending on results of wound culture Further recs per Dr. Ron Epps PGY-2
[2016-11-21] MEDS: Cefepime IV 1 gm in Dextrose 1 GM/50 ML BAG IVPB SCH ×2 (08:38→18:54)
[2016-11-21 08:41] LABS: CHLORIDE 98 mmol/L (98-107); POTASSIUM 4.9 mmol/L (3.6-5.2); SODIUM 138 mmol/L (132-148)
[2016-11-21 08:43] LABS: ALB/GLOB RATIO 0.8 (1.0-2.1); AST/SGOT 40 U/L (17-59); BILIRUBIN,TOTAL 0.6 mg/dL (0.2-1.3); CARBON DIOXIDE 32 mmol/L (22-30); GFR AFRICAN-AMERICAN > 60; TOTAL PROTEIN 6.9 g/dL (6.3-8.3)
[2016-11-21 08:44] LABS: ALKALINE PHOSPHATASE 87 U/L (38-126); ALT/SGPT 57 U/L (21-72); BLOOD UREA NITROGEN 11 mg/dL (9-20); GLUCOSE,RANDOM 94 mg/dL (75-110); PHOSPHOROUS 3.1 mg/dL (2.5-4.5)
[2016-11-21 08:45] LABS: MAGNESIUM 2.1 mg/dL (1.6-2.3)
--- NOTE | 2016-11-21 11:03 | CP.PCM.PN ---
Subjective - Date & Time of Evaluation Date of Evaluation: 11/21/16 Time of Evaluation: 07:00 - Subjective Subjective: PGY-2 Resident Progress Note for Dr. Verdin Patient seen and examined at bedside. No reported acute events overnight. Patient still complains of pain in his legs. Patient denies fever, chills, shortness of breath, chest pain, abdominal pain, nausea, vomiting or diarrhea. Objective - Vital Signs/Intake and Output Vital Signs (last 24 hours): Temp Pulse Resp BP Pulse Ox 98.5 F 71 18 171/84 H 100 11/21/16 07:25 11/21/16 07:25 11/21/16 07:25 11/21/16 07:25 11/21/16 07:25 Intake and Output: 11/21/16 11/21/16 06:59 18:59 Output Total 750 Balance -750 - Medications Medications: Current Medications Aspirin (Aspirin Chewable) 81 mg PO DAILY [facility] Last Admin: 11/21/16 09:15 Dose: 81 mg Clopidogrel Bisulfate (Plavix) 75 mg PO DAILY [facility] Famotidine (Pepcid) 20 mg PO BID [facility] Last Admin: 11/20/16 18:28 Dose: 20 mg Ferrous Sulfate (Feosol) 325 mg PO DAILY [facility] Last Admin: 11/20/16 10:04 Dose: 325 mg Gabapentin (Neurontin) 100 mg PO BID [facility] Heparin Sodium (Porcine) (Heparin) 5,000 units SC Q12 [facility] Last Admin: 11/21/16 09:17 Dose: Not Given Cefepime HCl (Maxipime Iv 1 Gm Premix) 1 gm in 50 mls @ 100 mls/hr IVPB Q12H [facility] Last Admin: 11/21/16 08:38 Dose: 100 mls/hr Ampicillin 2 gm/ Sodium (Chloride) 100 mls @ 50 mls/hr IVPB Q6H [facility] Last Admin: 11/21/16 08:34 Dose: 50 mls/hr Amikacin Sulfate 500 mg/ (Dextrose) 102 mls @ 204 mls/hr IVPB Q12H [facility] Last Admin: 11/21/16 04:25 Dose: 204 mls/hr Magnesium Hydroxide (Milk Of Magnesia) 30 ml PO DAILY PRN PRN Reason: Constipation Last Admin: 11/20/16 20:35 Dose: 30 ml Metoprolol Tartrate (Lopressor) 50 mg PO BID [facility] Last Admin: 11/21/16 09:15 Dose: 50 mg Oxycodone/Acetaminophen (Percocet 5/325 Mg Tab) 1 tab PO Q4H PRN PRN Reason: Pain, moderate (4-7) Stop: 11/21/16 19:47 Last Admin: 11/21/16 07:53 Dose: 1 tab - Labs Labs: 11/21/16 07:58 11/21/16 07:58 PT 18.3 SECONDS (9.7-12.2) H 11/15/16 05:53 INR 1.6 11/15/16 05:53 APTT 31 SECONDS (21-34) 11/15/16 05:53 - Constitutional Appears: Non-toxic, No Acute Distress - Head Exam Head Exam: NORMAL INSPECTION - Eye Exam Eye Exam: Normal appearance - ENT Exam ENT Exam: Mucous Membranes Moist - Neck Exam Neck Exam: Normal Inspection - Respiratory Exam Respiratory Exam: Clear to Ausculation Bilateral, NORMAL BREATHING PATTERN. absent: Respiratory Distress - Cardiovascular Exam Cardiovascular Exam: REGULAR RHYTHM, +S1, +S2 - GI/Abdominal Exam GI & Abdominal Exam: Soft, Normal Bowel Sounds. absent: Tenderness - Extremities Exam Additional comments: Bilateral lower leg dressings, clean, dry, and intact. No active drainage appreciated. - Neurological Exam Neurological Exam: Alert, Awake, Oriented x3 - Psychiatric Exam Psychiatric exam: Normal Affect, Normal Mood - Skin Skin Exam: Normal Color, Warm Assessment and Plan - Assessment and Plan (Free Text) Assessment: Bilateral LE leg ulcers Follow vascular surgery recommendations - s/p OR 11/15 wound debridement of anterior bilateral lower extremities 11/15 s/p OR for debridement Wounds cultures 11/17 - Pseudomonas Wound cultures 11/15 - Pseudomonas, EFaecelia, Klebsiella Dr. Allison consulted, help appreciated Abx as follows: 1. Amikkacin 500 mg IVPB q12 hours (started 11/19) 2. Ampicillin 50mg IVPB Q6 hours (started 11/19) 3. Cefepime 1gram IVPB Q12 hours (started 11/17) Percocet 1 tab PO Q4 prn moderate pain Per surgery, will repeat culture wounds in 2 weeks. If clear of infection, will plan for skin graft PICC Line placed by IR today for antibiotic administration as outpatient Pending Amikacin level Anemia- stable one more unit of PRBC ordered 11/15 s/p transfusion 1 U PRBC on 11/13. Vitamin B12 normal Iron 12, % iron 5%, ferritin 94 started on feosol 325mg PO Daily Hx Valve replacement ASA and Plavix held due to surgical plans Dr. Duggan consulted, help appreciated Resume ASA, lopressor 50mg, Plavix 75mg HTN Lopressor 50mg PO BID Constipation Milk of Magnesia Prophylaxis Heparin 5000 U SC Q12 Pepcid 20mg PO BID NO SCDS to to LE leg ulcers Heart healthy diet Disposition: CARROL placement pending Discussed with Dr. Verdin. All management per Dr. Verdin.
[2016-11-21] MEDS ORDERED: Lidocaine 2% Inj (20ml) ONE (11:36)
--- NOTE | 2016-11-21 12:08 | PCM.SURG1 ---
Surgeon's Initial Post Op Note - Surgeon's Notes Surgeon: Lb Varma MD Barber Apprentice: NONE Type of Anesthesia: Local Pre-Operative Diagnosis: Infection Operative Findings: US showed a patent right basilic vein. Post-Operative Diagnosis: Infection Operation Performed: single lumen picc placement right basilic vein, 37 cm. Tip in SVC. Specimen/Specimens Removed: None Estimated Blood Loss: EBL {In ML}: 2 Blood Products Given: N/A Drains Used: No Drains Post-Op Condition: Fair Date of Surgery/Procedure: 11/21/16 Time of Surgery/Procedure: 12:05
--- NOTE | 2016-11-21 17:51 | PN ---
DATE: SUBJECTIVE: The patient denied chest pain. He has declined . PHYSICAL EXAMINATION: VITAL SIGNS: Blood pressure 170/84, heart rate 71, temperature 98.5, and respiration 18. HEENT: [place] conjunctivae. CHEST: Clear. HEART: S1 and S2 regular. ABDOMEN: Soft. EXTREMITIES: Dressing is applied to both legs and feet. LABORATORY DATA: Shows hemoglobin and hematocrit 9.8 and 31.8. White count and platelet count are within normal limits. SMA-7 is within normal limits except for carbon dioxide of 32. ASSESSMENT: 1. Bilateral leg cellulitis. 2. Status post debridement. 3. Status post aortic valve replacement. Clinically, patient has mild aortic stenosis. 4. Anemia. RECOMMENDATIONS: Continue aspirin 81 mg once a day, Lopressor 50 mg once a day. Continue Plavix 75 mg once a day. Continue IV ampicillin 2 g q. 6 hours and IV Cefepime at 1 g q. 12 hours. The plan is to transfer the patient to subacute rehab for continued intervenous antibiotics. Tobias Duggan MD
--- NOTE | 2016-11-21 23:23 | HP ---
HISTORY OF PRESENT ILLNESS: Mr. Arenas is an 81-year-old male with history of nonhealing wound in the leg. The patient has history of peripheral vascular disease. Multiple admissions *------* nonhealing, the patient advised admission. The patient is a nonsmoker. PHYSICAL EXAMINATION GENERAL: The patient is awake, alert, and oriented. VITAL SIGNS: Temperature 98, pulse 98. HEENT: Within normal limits. NECK: Supple. CHEST: Symmetrical. HEART: Regular. ABDOMEN: Soft. EXTREMITIES: There is a large infected wound in the leg and *------*. Pulses are decreased. IMPRESSION: The patient suffers from nonhealing skin wound. The patient needs supportive care with intravenous antibiotics. Brandy Verdin MD
[2016-11-22] MEDS: Amikacin 500 MG in Dextrose 5% In Water 100 ML IVPB SCH ×2 (02:35→14:58)
[2016-11-22] MEDS: Cefepime IV 1 gm in Dextrose 1 GM/50 ML BAG IVPB SCH ×2 (06:00→18:28)
[2016-11-22 07:44] LABS: BASO # 0.1 K/uL (0.0-0.2); BASO % 0.7 % (0.0-2.0); EOS # 0.3 K/uL (0.0-0.7); EOS % 3.9 % (0.0-4.0); HEMATOCRIT 30.5 % (35.0-51.0); LYMPH % 25.9 % (20.0-40.0); MEAN CORPUSCULAR HEMOGLOBIN 22.2 pg (27.0-31.0); MEAN CORPUSCULAR HGB CONC 31.3 g/dL (33.0-37.0); MEAN PLATELET VOLUME 9.1 fL (7.2-11.7); MONO # 1.1 K/uL (0.0-0.8); MONO % 14.4 % (0.0-10.0); RED CELL DISTRIBUTION WIDTH 25.5 % (11.5-14.5); WHITE BLOOD COUNT 7.9 K/uL (4.8-10.8)
[2016-11-22 07:50] LABS: CHLORIDE 102 mmol/L (98-107); POTASSIUM 4.2 mmol/L (3.6-5.2); SODIUM 137 mmol/L (132-148)
[2016-11-22 07:52] LABS: AST/SGOT 31 U/L (17-59); BILIRUBIN,TOTAL 0.5 mg/dL (0.2-1.3); CARBON DIOXIDE 29 mmol/L (22-30); GFR AFRICAN-AMERICAN > 60
[2016-11-22 07:53] LABS: ALB/GLOB RATIO 0.8 (1.0-2.1); ALKALINE PHOSPHATASE 81 U/L (38-126); ALT/SGPT 48 U/L (21-72); BLOOD UREA NITROGEN 15 mg/dL (9-20); CALCIUM 9.2 mg/dl (8.6-10.4); GLUCOSE,RANDOM 83 mg/dL (75-110); PHOSPHOROUS 3.4 mg/dL (2.5-4.5); TOTAL PROTEIN 6.7 g/dL (6.3-8.3)
[2016-11-22 07:54] LABS: MAGNESIUM 2.1 mg/dL (1.6-2.3)
--- NOTE | 2016-11-22 08:17 | CP.PCM.PN ---
Subjective - Date & Time of Evaluation Date of Evaluation: 11/22/16 Time of Evaluation: 07:30 - Subjective Subjective: PGY-2 Resident Progress Note for Dr. Verdin Patient seen and examined at bedside. No acute events overnight. Patient complains of mild discomfort at PICC line site. Patient's bilateral leg pain improved compared to yesterday. Patient denies fever, chills, shortness of breath, chest pain, abdominal pain, nausea, vomiting or diarrhea. Objective - Vital Signs/Intake and Output Vital Signs (last 24 hours): Temp Pulse Resp BP Pulse Ox 97.4 F L 63 18 152/67 H 98 11/22/16 07:25 11/22/16 07:25 11/22/16 07:25 11/22/16 07:25 11/22/16 07:25 Intake and Output: 11/22/16 11/22/16 06:59 18:59 Intake Total 250 Output Total 1200 Balance -950 - Medications Medications: Current Medications Acetaminophen (Tylenol 325mg Tab) 975 mg PO Q8 [facility] Last Admin: 11/22/16 07:07 Dose: Not Given Aspirin (Aspirin Chewable) 81 mg PO DAILY [facility] Last Admin: 11/21/16 09:15 Dose: 81 mg Clopidogrel Bisulfate (Plavix) 75 mg PO DAILY [facility] Last Admin: 11/21/16 09:15 Dose: 75 mg Famotidine (Pepcid) 20 mg PO BID [facility] Last Admin: 11/21/16 17:26 Dose: 20 mg Ferrous Sulfate (Feosol) 325 mg PO DAILY [facility] Last Admin: 11/21/16 09:15 Dose: 325 mg Gabapentin (Neurontin) 100 mg PO BID [facility] Last Admin: 11/21/16 17:26 Dose: 100 mg Cefepime HCl (Maxipime Iv 1 Gm Premix) 1 gm in 50 mls @ 100 mls/hr IVPB Q12H [facility] Last Admin: 11/22/16 06:00 Dose: 100 mls/hr Ampicillin 2 gm/ Sodium (Chloride) 100 mls @ 50 mls/hr IVPB Q6H [facility] Last Admin: 11/22/16 02:00 Dose: 50 mls/hr Amikacin Sulfate 500 mg/ (Dextrose) 102 mls @ 204 mls/hr IVPB Q12H [facility] Last Admin: 11/22/16 02:35 Dose: 204 mls/hr Magnesium Hydroxide (Milk Of Magnesia) 30 ml PO DAILY PRN PRN Reason: Constipation Last Admin: 11/20/16 20:35 Dose: 30 ml Metoprolol Tartrate (Lopressor) 50 mg PO BID [facility] Last Admin: 11/21/16 17:26 Dose: 50 mg - Labs Labs: 11/22/16 07:04 11/22/16 07:04 PT 18.3 SECONDS (9.7-12.2) H 11/15/16 05:53 INR 1.6 11/15/16 05:53 APTT 31 SECONDS (21-34) 11/15/16 05:53 - Constitutional Appears: Non-toxic, No Acute Distress - Head Exam Head Exam: NORMAL INSPECTION - Eye Exam Eye Exam: Normal appearance - ENT Exam ENT Exam: Mucous Membranes Moist - Neck Exam Neck Exam: Normal Inspection - Respiratory Exam Respiratory Exam: Clear to Ausculation Bilateral, NORMAL BREATHING PATTERN. absent: Respiratory Distress - Cardiovascular Exam Cardiovascular Exam: REGULAR RHYTHM, +S1, +S2 - GI/Abdominal Exam GI & Abdominal Exam: Soft, Normal Bowel Sounds. absent: Tenderness - Extremities Exam Additional comments: Bilateral lower leg dressings, clean, dry, and intact. No active drainage appreciated - Neurological Exam Neurological Exam: Alert, Awake, Oriented x3 - Psychiatric Exam Psychiatric exam: Normal Affect, Normal Mood - Skin Skin Exam: Dry, Warm Assessment and Plan - Assessment and Plan (Free Text) Assessment: Bilateral LE leg ulcers Follow vascular surgery recommendations - s/p OR 11/15 wound debridement of anterior bilateral lower extremities 11/15 s/p OR for debridement Wound cultures 11/21 - Gram negative juan Wound cultures 11/17 - Pseudomonas Wound cultures 11/15 - Pseudomonas, E. Faecelia, Klebsiella Dr. Allison consulted, help appreciated Abx as follows: 1. Amikkacin 500 mg IVPB q12 hours (started 11/19) 2. Ampicillin 50mg IVPB Q6 hours (started 11/19) 3. Cefepime 1gram IVPB Q12 hours (started 11/17) Percocet 1 tab PO Q4 prn moderate pain Topical silvadene Per surgery, will plan for skin graft once cultures are negative PICC Line placed by IR today for antibiotic administration as outpatient Pending Amikacin level Anemia- stable one unit of PRBC ordered 11/15 s/p transfusion 1 U PRBC on 11/13. Vitamin B12 normal Iron 12, % iron 5%, ferritin 94 started on feosol 325mg PO Daily Hx Valve replacement Dr. Duggan consulted, help appreciated Resume ASA, lopressor 50mg, Plavix 75mg HTN Lopressor 50mg PO BID Constipation Milk of Magnesia prn Prophylaxis Pepcid 20mg PO BID Tylenol Heart healthy diet Disposition: CARROL placement pending Discussed with Dr. Verdin. All management per Dr. Verdin.
--- NOTE | 2016-11-22 13:35 | CP.PCM.PN ---
Subjective - Date & Time of Evaluation Date of Evaluation: 11/22/16 Time of Evaluation: 06:35 - Subjective Subjective: Patient seen and examined this morning. No acute events over night. Feet dressing c/d/i. No complaints. Objective - Vital Signs/Intake and Output Vital Signs (last 24 hours): Temp Pulse Resp BP Pulse Ox 97.4 F L 63 18 152/67 H 98 11/22/16 07:25 11/22/16 07:25 11/22/16 07:25 11/22/16 07:25 11/22/16 07:25 Intake and Output: 11/22/16 11/22/16 06:59 18:59 Intake Total 250 Output Total 1200 Balance -950 - Medications Medications: Current Medications Acetaminophen (Tylenol 325mg Tab) 975 mg PO Q8 [facility] Last Admin: 11/22/16 09:23 Dose: 975 mg Aspirin (Aspirin Chewable) 81 mg PO DAILY [facility] Last Admin: 11/22/16 09:27 Dose: 81 mg Clopidogrel Bisulfate (Plavix) 75 mg PO DAILY [facility] Last Admin: 11/22/16 09:27 Dose: 75 mg Famotidine (Pepcid) 20 mg PO BID [facility] Last Admin: 11/22/16 09:27 Dose: 20 mg Ferrous Sulfate (Feosol) 325 mg PO DAILY [facility] Last Admin: 11/22/16 09:27 Dose: 325 mg Gabapentin (Neurontin) 100 mg PO BID [facility] Last Admin: 11/22/16 09:27 Dose: 100 mg Cefepime HCl (Maxipime Iv 1 Gm Premix) 1 gm in 50 mls @ 100 mls/hr IVPB Q12H [facility] Last Admin: 11/22/16 06:00 Dose: 100 mls/hr Ampicillin 2 gm/ Sodium (Chloride) 100 mls @ 50 mls/hr IVPB Q6H [facility] Last Admin: 11/22/16 08:40 Dose: 50 mls/hr Amikacin Sulfate 500 mg/ (Dextrose) 102 mls @ 204 mls/hr IVPB Q12H [facility] Last Admin: 11/22/16 02:35 Dose: 204 mls/hr Magnesium Hydroxide (Milk Of Magnesia) 30 ml PO DAILY PRN PRN Reason: Constipation Last Admin: 11/20/16 20:35 Dose: 30 ml Metoprolol Tartrate (Lopressor) 50 mg PO BID [facility] Last Admin: 11/22/16 09:27 Dose: 50 mg - Labs Labs: 11/22/16 07:04 11/22/16 07:04 PT 18.3 SECONDS (9.7-12.2) H 11/15/16 05:53 INR 1.6 11/15/16 05:53 APTT 31 SECONDS (21-34) 11/15/16 05:53 - Constitutional Appears: Non-toxic, No Acute Distress - Head Exam Head Exam: NORMOCEPHALIC - Eye Exam Eye Exam: Normal appearance - ENT Exam ENT Exam: Mucous Membranes Moist - Respiratory Exam Respiratory Exam: NORMAL BREATHING PATTERN - Cardiovascular Exam Cardiovascular Exam: +S1, +S2 - GI/Abdominal Exam GI & Abdominal Exam: Soft - Extremities Exam Additional comments: dressings c/d/i - Neurological Exam Neurological Exam: Alert, Awake, Oriented x3 - Psychiatric Exam Psychiatric exam: Normal Mood - Skin Skin Exam: Dry Assessment and Plan - Assessment and Plan (Free Text) Assessment: 81yo M s/p bilateral LE debridement POD#7 - Wound cx from 11/17: pseudomonas x2 -Repeat Wound Cx: Gram - juan growth in left foot, No growth in R foot, await final results -Gabapentin - Pain control PRN - Possible skin graft next week depending on results of wound culture Further recs per Dr. Ron Epps PGY-2
--- NOTE | 2016-11-22 17:44 | CP.PCM.PN ---
Subjective - Date & Time of Evaluation Date of Evaluation: 11/22/16 Time of Evaluation: 07:00 - Subjective Subjective: wounds still draining greenish secretions demies fever Objective - Vital Signs/Intake and Output Vital Signs (last 24 hours): Temp Pulse Resp BP Pulse Ox 98 F 66 20 130/65 98 11/22/16 17:17 11/22/16 17:17 11/22/16 17:17 11/22/16 17:17 11/22/16 17:17 Intake and Output: 11/22/16 11/22/16 06:59 18:59 Intake Total 250 730 Output Total 1200 Balance -950 730 - Medications Medications: Current Medications Acetaminophen (Tylenol 325mg Tab) 975 mg PO Q8 [facility] Last Admin: 11/22/16 14:20 Dose: 975 mg Aspirin (Aspirin Chewable) 81 mg PO DAILY [facility] Last Admin: 11/22/16 09:27 Dose: 81 mg Clopidogrel Bisulfate (Plavix) 75 mg PO DAILY [facility] Last Admin: 11/22/16 09:27 Dose: 75 mg Famotidine (Pepcid) 20 mg PO BID [facility] Last Admin: 11/22/16 09:27 Dose: 20 mg Ferrous Sulfate (Feosol) 325 mg PO DAILY [facility] Last Admin: 11/22/16 09:27 Dose: 325 mg Gabapentin (Neurontin) 100 mg PO BID [facility] Last Admin: 11/22/16 09:27 Dose: 100 mg Cefepime HCl (Maxipime Iv 1 Gm Premix) 1 gm in 50 mls @ 100 mls/hr IVPB Q12H [facility] Last Admin: 11/22/16 06:00 Dose: 100 mls/hr Ampicillin 2 gm/ Sodium (Chloride) 100 mls @ 50 mls/hr IVPB Q6H [facility] Last Admin: 11/22/16 14:20 Dose: 50 mls/hr Amikacin Sulfate 500 mg/ (Dextrose) 102 mls @ 204 mls/hr IVPB Q12H [facility] Last Admin: 11/22/16 14:58 Dose: 204 mls/hr Magnesium Hydroxide (Milk Of Magnesia) 30 ml PO DAILY PRN PRN Reason: Constipation Last Admin: 11/20/16 20:35 Dose: 30 ml Metoprolol Tartrate (Lopressor) 50 mg PO BID [facility] Last Admin: 11/22/16 09:27 Dose: 50 mg - Labs Labs: 11/22/16 07:04 11/22/16 07:04 PT 18.3 SECONDS (9.7-12.2) H 11/15/16 05:53 INR 1.6 11/15/16 05:53 APTT 31 SECONDS (21-34) 11/15/16 05:53 - Constitutional Appears: Non-toxic, Chronically Ill - Head Exam Head Exam: NORMOCEPHALIC - Eye Exam Eye Exam: PERRL - ENT Exam ENT Exam: Mucous Membranes Dry - Neck Exam Neck Exam: absent: Lymphadenopathy - Respiratory Exam Respiratory Exam: Decreased Breath Sounds - Cardiovascular Exam Cardiovascular Exam: REGULAR RHYTHM - GI/Abdominal Exam GI & Abdominal Exam: Distended - Rectal Exam Rectal Exam: Deferred - Exam Exam: NORMAL INSPECTION - Extremities Exam Extremities Exam: absent: Pedal Edema - Back Exam Back Exam: absent: CVA tenderness (L), CVA tenderness (R) - Neurological Exam Neurological Exam: Alert, Awake, Oriented x3 - Psychiatric Exam Psychiatric exam: Normal Mood - Skin Skin Exam: Dry Assessment and Plan (1) Cellulitis Status: Acute (2) Dehydration Status: Acute
--- NOTE | 2016-11-23 01:26 | PN ---
DATE: SUBJECTIVE: The patient denies any chest pain. PHYSICAL EXAMINATION: VITAL SIGNS: At this time, blood pressure 152/63, heart rate 63, temperature 99.4, respirations 18. HEENT: [place] conjunctivae. CHEST: Clear. HEART: S1 and S2 regular. Grade 2/6 ejection systolic murmur over left sternal border. ABDOMEN: Soft. EXTREMITIES: Dressing is applied to both lower extremities. LABORATORY DATA: Hemoglobin and hematocrit 9.5 and 30.5, white count and platelet count are within normal limits. Recent SMA-7 is entirely within normal limits. ASSESSMENT: 1. Bilateral leg cellulitis status post debridement. 2. 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 3. Anemia required packed red blood cell transfusion. RECOMMENDATIONS: Continue current IV ampicillin, IV amikacin, continue aspirin 81 mg once daily, Lopressor 50 mg twice a day, ferrous sulfate 1 tablet daily, IV Maxipime 1 g twice a day, Plavix 75 mg once a day. Tobias Duggan MD
[2016-11-23] MEDS: Amikacin 500 MG in Dextrose 5% In Water 100 ML IVPB SCH ×2 (02:36→14:30)
[2016-11-23] MEDS: Oxycodone/Acetaminophen 5/325 mg Tab PO PRN (03:02)
[2016-11-23] MEDS: Cefepime IV 1 gm in Dextrose 1 GM/50 ML BAG IVPB SCH ×2 (06:18→19:00)
[2016-11-23 07:22] LABS: BASO # 0.1 K/uL (0.0-0.2); BASO % 0.9 % (0.0-2.0); EOS # 0.4 K/uL (0.0-0.7); EOS % 4.1 % (0.0-4.0); HEMATOCRIT 32.5 % (35.0-51.0); LYMPH # 2.3 K/uL (1.0-4.3); LYMPH % 25.7 % (20.0-40.0); MEAN CELL VOLUME 70.6 fL (80.0-94.0); MEAN CORPUSCULAR HEMOGLOBIN 22.3 pg (27.0-31.0); MEAN CORPUSCULAR HGB CONC 31.6 g/dL (33.0-37.0); MEAN PLATELET VOLUME 9.1 fL (7.2-11.7); MONO # 1.1 K/uL (0.0-0.8); MONO % 12.3 % (0.0-10.0); NRBC % 0.1 % (0.0-2.0); RED CELL DISTRIBUTION WIDTH 25.7 % (11.5-14.5); WHITE BLOOD COUNT 8.8 K/uL (4.8-10.8)
[2016-11-23 08:12] LABS: ALB/GLOB RATIO 0.7 (1.0-2.1); ALKALINE PHOSPHATASE 91 U/L (38-126); ALT/SGPT 47 U/L (21-72); AST/SGOT 35 U/L (17-59); BILIRUBIN,TOTAL 0.5 mg/dL (0.2-1.3); BLOOD UREA NITROGEN 17 mg/dL (9-20); CALCIUM 9.2 mg/dl (8.6-10.4); CARBON DIOXIDE 30 mmol/L (22-30); CHLORIDE 101 mmol/L (98-107); GFR AFRICAN-AMERICAN > 60; GLUCOSE,RANDOM 96 mg/dL (75-110); MAGNESIUM 2.1 mg/dL (1.6-2.3); PHOSPHOROUS 3.5 mg/dL (2.5-4.5); POTASSIUM 4.4 mmol/L (3.6-5.2); SODIUM 139 mmol/L (132-148); TOTAL PROTEIN 7.3 g/dL (6.3-8.3)
[2016-11-23] MEDS: Saccharomyces Boulardi 250 mg Cap PO SCH ×2 (09:47→17:31)
--- NOTE | 2016-11-23 10:13 | CP.PCM.PN ---
Subjective - Date & Time of Evaluation Date of Evaluation: 11/23/16 Time of Evaluation: 07:05 - Subjective Subjective: PGY-2 Resident Progress Note for Dr. Verdin Patient seen and examined at bedside. No acute events overnight. Patient's bilateral leg pain improved compared to yesterday He was sitting in the chair dressed and was very lively today. Patient denies fever, chills, shortness of breath, chest pain, abdominal pain, nausea, vomiting or diarrhea. Patient understands that he will need IV antibiotic for a least another 2 weeks. Objective - Vital Signs/Intake and Output Vital Signs (last 24 hours): Temp Pulse Resp BP Pulse Ox 98.2 F 83 20 146/82 99 11/23/16 07:50 11/23/16 07:50 11/23/16 07:50 11/23/16 07:50 11/23/16 07:50 Intake and Output: 11/23/16 11/23/16 06:59 18:59 Intake Total 1000 Output Total 1300 Balance -300 - Medications Medications: Current Medications Acetaminophen (Tylenol 325mg Tab) 975 mg PO Q8 [facility] Last Admin: 11/23/16 05:23 Dose: Not Given Aspirin (Aspirin Chewable) 81 mg PO DAILY [facility] Last Admin: 11/23/16 09:46 Dose: 81 mg Clopidogrel Bisulfate (Plavix) 75 mg PO DAILY [facility] Last Admin: 11/23/16 09:46 Dose: 75 mg Famotidine (Pepcid) 20 mg PO BID [facility] Last Admin: 11/23/16 09:47 Dose: 20 mg Ferrous Sulfate (Feosol) 325 mg PO DAILY [facility] Last Admin: 11/23/16 09:47 Dose: 325 mg Gabapentin (Neurontin) 100 mg PO BID [facility] Last Admin: 11/23/16 09:47 Dose: 100 mg Cefepime HCl (Maxipime Iv 1 Gm Premix) 1 gm in 50 mls @ 100 mls/hr IVPB Q12H [facility] Last Admin: 11/23/16 06:18 Dose: 100 mls/hr Ampicillin 2 gm/ Sodium (Chloride) 100 mls @ 50 mls/hr IVPB Q6H [facility] Last Admin: 11/23/16 08:23 Dose: 50 mls/hr Amikacin Sulfate 500 mg/ (Dextrose) 102 mls @ 204 mls/hr IVPB Q12H [facility] Last Admin: 11/23/16 02:36 Dose: 204 mls/hr Magnesium Hydroxide (Milk Of Magnesia) 30 ml PO DAILY PRN PRN Reason: Constipation Last Admin: 11/20/16 20:35 Dose: 30 ml Metoprolol Tartrate (Lopressor) 50 mg PO BID [facility] Last Admin: 11/23/16 09:47 Dose: 50 mg Oxycodone/Acetaminophen (Percocet 5/325 Mg Tab) 1 tab PO Q4H PRN PRN Reason: Pain, moderate (4-7) Stop: 11/26/16 02:37 Last Admin: 11/23/16 03:02 Dose: 1 tab Saccharomyces Boulardii (Florastor) 250 mg PO BID [facility] Last Admin: 11/23/16 09:47 Dose: 250 mg - Labs Labs: 11/23/16 06:51 11/23/16 06:51 PT 18.3 SECONDS (9.7-12.2) H 11/15/16 05:53 INR 1.6 11/15/16 05:53 APTT 31 SECONDS (21-34) 11/15/16 05:53 - Constitutional Appears: Non-toxic, No Acute Distress - Head Exam Head Exam: ATRAUMATIC, NORMAL INSPECTION - Eye Exam Eye Exam: EOMI, Normal appearance, PERRL Pupil Exam: NORMAL ACCOMODATION - ENT Exam ENT Exam: Mucous Membranes Moist - Respiratory Exam Respiratory Exam: Clear to Ausculation Bilateral, NORMAL BREATHING PATTERN. absent: Respiratory Distress - Cardiovascular Exam Cardiovascular Exam: REGULAR RHYTHM, +S1, +S2 - GI/Abdominal Exam GI & Abdominal Exam: Soft, Normal Bowel Sounds. absent: Distended, Firm, Guarding, Tenderness - Extremities Exam Extremities Exam: absent: Calf Tenderness, Pedal Edema Additional comments: b/l legs dressings in place. d/c/i - Back Exam Back Exam: NORMAL INSPECTION. absent: CVA tenderness (L), CVA tenderness (R), paraspinal tenderness - Neurological Exam Neurological Exam: Alert, Awake, CN II-XII Intact, Oriented x3 - Psychiatric Exam Psychiatric exam: Normal Mood - Skin Skin Exam: Dry, Normal Color, Warm Assessment and Plan - Assessment and Plan (Free Text) Assessment: Bilateral LE leg ulcers + Pseudomonas Abx as follows: 1. Amikkacin 500 mg IVPB q12 hours (started 11/19) 2. Ampicillin 50mg IVPB Q6 hours (started 11/19) 3. Cefepime 1gram IVPB Q12 hours (started 11/17) Florastor 250mg PO BID Dr. Allison consulted, help appreciated -> Patient will need abx for at least another 2 weeks. Follow vascular surgery recommendations - s/p OR 11/15 wound debridement of anterior bilateral lower extremities Wound cultures 11/21 - Gram negative juan Wound cultures 11/17 - Pseudomonas Wound cultures 11/15 - Pseudomonas, E. Faecelia, Klebsiella Percocet 1 tab PO Q4 prn moderate pain Topical silvadene Per surgery, will plan for skin graft once cultures are negative PICC Line placed Pending Amikacin level Anemia- stable Stable 10.3 one unit of PRBC ordered 11/15 s/p transfusion 1 U PRBC on 11/13. Vitamin B12 normal Iron 12, % iron 5%, ferritin 94 Feosol 325mg PO Daily Hx Valve replacement Dr. Duggan consulted, help appreciated Resume ASA 81 mg PO daily and Plavix 75mg PO daily HTN Lopressor 50mg PO BID Constipation Milk of Magnesia prn Prophylaxis Pepcid 20mg PO BID Tylenol Heart healthy diet Will add PO supplements to diet - Glucerna Disposition: CARROL placement pending Discussed with Dr. Verdin. All management per Dr. Verdin.
--- NOTE | 2016-11-23 15:25 | CP.PCM.PN ---
Subjective - Date & Time of Evaluation Date of Evaluation: 11/23/16 Time of Evaluation: 10:55 - Subjective Subjective: Patient seen and examined this morning. No complaints. Denies fever/chills. Wound dressings changed by nursing. Review of vitals is normal. Objective - Vital Signs/Intake and Output Vital Signs (last 24 hours): Temp Pulse Resp BP Pulse Ox 98.2 F 83 20 146/82 99 11/23/16 07:50 11/23/16 07:50 11/23/16 07:50 11/23/16 07:50 11/23/16 07:50 Intake and Output: 11/23/16 11/23/16 06:59 18:59 Intake Total 1000 Output Total 1300 Balance -300 - Medications Medications: Current Medications Acetaminophen (Tylenol 325mg Tab) 975 mg PO Q8 [facility] Last Admin: 11/23/16 14:31 Dose: Not Given Aspirin (Aspirin Chewable) 81 mg PO DAILY [facility] Last Admin: 11/23/16 09:46 Dose: 81 mg Clopidogrel Bisulfate (Plavix) 75 mg PO DAILY [facility] Last Admin: 11/23/16 09:46 Dose: 75 mg Famotidine (Pepcid) 20 mg PO BID [facility] Last Admin: 11/23/16 09:47 Dose: 20 mg Ferrous Sulfate (Feosol) 325 mg PO DAILY [facility] Last Admin: 11/23/16 09:47 Dose: 325 mg Gabapentin (Neurontin) 100 mg PO BID [facility] Last Admin: 11/23/16 09:47 Dose: 100 mg Cefepime HCl (Maxipime Iv 1 Gm Premix) 1 gm in 50 mls @ 100 mls/hr IVPB Q12H [facility] Last Admin: 11/23/16 06:18 Dose: 100 mls/hr Ampicillin 2 gm/ Sodium (Chloride) 100 mls @ 50 mls/hr IVPB Q6H [facility] Last Admin: 11/23/16 14:29 Dose: 50 mls/hr Amikacin Sulfate 500 mg/ (Dextrose) 102 mls @ 204 mls/hr IVPB Q12H [facility] Last Admin: 11/23/16 14:30 Dose: 204 mls/hr Magnesium Hydroxide (Milk Of Magnesia) 30 ml PO DAILY PRN PRN Reason: Constipation Last Admin: 11/20/16 20:35 Dose: 30 ml Metoprolol Tartrate (Lopressor) 50 mg PO BID [facility] Last Admin: 11/23/16 09:47 Dose: 50 mg Oxycodone/Acetaminophen (Percocet 5/325 Mg Tab) 1 tab PO Q4H PRN PRN Reason: Pain, moderate (4-7) Stop: 11/26/16 02:37 Last Admin: 11/23/16 03:02 Dose: 1 tab Saccharomyces Boulardii (Florastor) 250 mg PO BID [facility] Last Admin: 11/23/16 09:47 Dose: 250 mg - Labs Labs: 11/23/16 06:51 11/23/16 06:51 PT 18.3 SECONDS (9.7-12.2) H 11/15/16 05:53 INR 1.6 11/15/16 05:53 APTT 31 SECONDS (21-34) 11/15/16 05:53 - Constitutional Appears: No Acute Distress - Head Exam Head Exam: NORMOCEPHALIC - Eye Exam Eye Exam: Normal appearance - ENT Exam ENT Exam: Normal Exam - Respiratory Exam Respiratory Exam: NORMAL BREATHING PATTERN - Cardiovascular Exam Cardiovascular Exam: +S1, +S2 - GI/Abdominal Exam GI & Abdominal Exam: Soft - Neurological Exam Neurological Exam: Alert, Awake, Oriented x3 - Skin Skin Exam: Dry, Intact, Warm Assessment and Plan - Assessment and Plan (Free Text) Assessment: 81yo M s/p bilateral LE debridement POD#8 - Wound cx from 11/17: pseudomonas x2 -Repeat Wound Cx: +Pseudomonas -Gabapentin - Pain control PRN - repeat wound cx demonstrated presence of pseudomonas again. Patient will not be able to obtain skin grafts until this infection clears. Further recs per Dr. Ron Epps PGY-2
--- NOTE | 2016-11-23 17:46 | CP.PCM.PN ---
Subjective - Date & Time of Evaluation Date of Evaluation: 11/23/16 Time of Evaluation: 09:00 - Subjective Subjective: severe pseudonmonas infection - MDRO PVD + poor prognosis may need debridement/ amputation?? Objective - Vital Signs/Intake and Output Vital Signs (last 24 hours): Temp Pulse Resp BP Pulse Ox 97.9 F 81 18 147/82 97 11/23/16 16:00 11/23/16 16:00 11/23/16 16:00 11/23/16 16:00 11/23/16 16:00 Intake and Output: 11/23/16 11/23/16 06:59 18:59 Intake Total 1000 730 Output Total 1300 750 Balance -300 -20 - Medications Medications: Current Medications Acetaminophen (Tylenol 325mg Tab) 975 mg PO Q8 [facility] Last Admin: 11/23/16 14:31 Dose: Not Given Aspirin (Aspirin Chewable) 81 mg PO DAILY [facility] Last Admin: 11/23/16 09:46 Dose: 81 mg Clopidogrel Bisulfate (Plavix) 75 mg PO DAILY [facility] Last Admin: 11/23/16 09:46 Dose: 75 mg Famotidine (Pepcid) 20 mg PO BID [facility] Last Admin: 11/23/16 17:30 Dose: 20 mg Ferrous Sulfate (Feosol) 325 mg PO DAILY [facility] Last Admin: 11/23/16 09:47 Dose: 325 mg Gabapentin (Neurontin) 100 mg PO BID [facility] Last Admin: 11/23/16 17:31 Dose: 100 mg Cefepime HCl (Maxipime Iv 1 Gm Premix) 1 gm in 50 mls @ 100 mls/hr IVPB Q12H [facility] Last Admin: 11/23/16 06:18 Dose: 100 mls/hr Ampicillin 2 gm/ Sodium (Chloride) 100 mls @ 50 mls/hr IVPB Q6H [facility] Last Admin: 11/23/16 14:29 Dose: 50 mls/hr Amikacin Sulfate 500 mg/ (Dextrose) 102 mls @ 204 mls/hr IVPB Q12H [facility] Last Admin: 11/23/16 14:30 Dose: 204 mls/hr Magnesium Hydroxide (Milk Of Magnesia) 30 ml PO DAILY PRN PRN Reason: Constipation Last Admin: 11/20/16 20:35 Dose: 30 ml Metoprolol Tartrate (Lopressor) 50 mg PO BID [facility] Last Admin: 11/23/16 09:47 Dose: 50 mg Oxycodone/Acetaminophen (Percocet 5/325 Mg Tab) 1 tab PO Q4H PRN PRN Reason: Pain, moderate (4-7) Stop: 11/26/16 02:37 Last Admin: 11/23/16 03:02 Dose: 1 tab Saccharomyces Boulardii (Florastor) 250 mg PO BID [facility] Last Admin: 11/23/16 17:31 Dose: 250 mg - Labs Labs: 11/23/16 06:51 11/23/16 06:51 PT 18.3 SECONDS (9.7-12.2) H 11/15/16 05:53 INR 1.6 11/15/16 05:53 APTT 31 SECONDS (21-34) 11/15/16 05:53 Assessment and Plan (1) Cellulitis Status: Acute (2) Dehydration Status: Acute
[2016-11-23 20:05] LABS: AMIKACIN 6.5 mg/L (see note)
--- NOTE | 2016-11-23 21:19 | PN ---
DATE: SUBJECTIVE: The patient has no cardiac complaints today. He still experiencing bilateral leg pain. PHYSICAL EXAMINATION: VITAL SIGNS: Blood pressure 146/82, heart rate 83, temperature 98.2 and respirations 20. HEENT: Pale conjunctiva. CHEST: Clear. HEART: S1 and S2 regular. Grade V/ ejection systolic murmur over left sternal border. EXTREMITIES: Dressings applied to both lower extremities. LABORATORY DATA: Hemoglobin and hematocrit 10.3 and 32.5. White count and platelet count are within normal limits. Today's SMA-7 is within normal limit. ASSESSMENT: 1. Bilateral leg cellulitis. 2. Mild aortic stenosis. The patient has bioprosthetic aortic valve. 3. Improving anemia. 4. Hypertension. RECOMMENDATIONS: Continue current IV amikacin, IV ampicillin and IV Maxipime. Continue aspirin 81 mg once a day, ferrous sulfate one tablet once a day. The patient has issues with going subacute rehab and we have to continue his intervenous antibiotics, while in [facility]. Tobias Duggan MD
[2016-11-24] MEDS: Magnesium Hydroxide Susp 30 ml UD PO PRN ×2 (00:13→14:17)
[2016-11-24] MEDS: Amikacin 500 MG in Dextrose 5% In Water 100 ML IVPB SCH ×2 (03:47→15:02)
[2016-11-24] MEDS: Cefepime IV 1 gm in Dextrose 1 GM/50 ML BAG IVPB SCH ×2 (06:02→20:30)
[2016-11-24 07:29] LABS: BASO # 0.1 K/uL (0.0-0.2); EOS # 0.3 K/uL (0.0-0.7); EOS % 3.6 % (0.0-4.0); HEMATOCRIT 32.2 % (35.0-51.0); LYMPH # 2.1 K/uL (1.0-4.3); LYMPH % 24.3 % (20.0-40.0); MEAN CELL VOLUME 70.9 fL (80.0-94.0); MEAN CORPUSCULAR HEMOGLOBIN 22.1 pg (27.0-31.0); MEAN CORPUSCULAR HGB CONC 31.1 g/dL (33.0-37.0); MEAN PLATELET VOLUME 9.6 fL (7.2-11.7); MONO # 1.2 K/uL (0.0-0.8); MONO % 14.3 % (0.0-10.0); NRBC % 0.1 % (0.0-2.0); RED CELL DISTRIBUTION WIDTH 25.4 % (11.5-14.5); WHITE BLOOD COUNT 8.7 K/uL (4.8-10.8)
[2016-11-24 07:37] LABS: CHLORIDE 101 mmol/L (98-107)
[2016-11-24 07:38] LABS: POTASSIUM 4.2 mmol/L (3.6-5.2); SODIUM 137 mmol/L (132-148)
[2016-11-24 07:40] LABS: ALB/GLOB RATIO 0.8 (1.0-2.1); ALKALINE PHOSPHATASE 85 U/L (38-126); AST/SGOT 32 U/L (17-59); BILIRUBIN,TOTAL 0.5 mg/dL (0.2-1.3); BLOOD UREA NITROGEN 16 mg/dL (9-20); CARBON DIOXIDE 30 mmol/L (22-30); GFR AFRICAN-AMERICAN > 60
[2016-11-24 07:41] LABS: ALT/SGPT 43 U/L (21-72); CALCIUM 9.2 mg/dl (8.6-10.4); GLUCOSE,RANDOM 86 mg/dL (75-110); MAGNESIUM 2.2 mg/dL (1.6-2.3); PHOSPHOROUS 3.4 mg/dL (2.5-4.5)
[2016-11-24] MEDS: Oxycodone/Acetaminophen 5/325 mg Tab PO PRN (08:06)
--- NOTE | 2016-11-24 08:54 | CP.PCM.PN ---
Subjective - Date & Time of Evaluation Date of Evaluation: 11/24/16 Time of Evaluation: 07:00 - Subjective Subjective: Pt S&E this AM. Dressings on feet were changed. Wound appears to be improving, repeat cultures taken. Will continue to monitor wound site. Objective - Vital Signs/Intake and Output Vital Signs (last 24 hours): Temp Pulse Resp BP Pulse Ox 98.1 F 90 18 151/77 H 99 11/24/16 07:30 11/24/16 07:30 11/24/16 07:30 11/24/16 07:30 11/24/16 07:30 Intake and Output: 11/24/16 11/24/16 06:59 18:59 Intake Total 800 Output Total 1400 Balance -600 - Medications Medications: Current Medications Acetaminophen (Tylenol 325mg Tab) 975 mg PO Q8 [facility] Last Admin: 11/24/16 06:00 Dose: Not Given Aspirin (Aspirin Chewable) 81 mg PO DAILY [facility] Last Admin: 11/23/16 09:46 Dose: 81 mg Clopidogrel Bisulfate (Plavix) 75 mg PO DAILY [facility] Last Admin: 11/23/16 09:46 Dose: 75 mg Famotidine (Pepcid) 20 mg PO BID [facility] Last Admin: 11/23/16 17:30 Dose: 20 mg Ferrous Sulfate (Feosol) 325 mg PO DAILY [facility] Last Admin: 11/23/16 09:47 Dose: 325 mg Gabapentin (Neurontin) 100 mg PO BID [facility] Last Admin: 11/23/16 17:31 Dose: 100 mg Cefepime HCl (Maxipime Iv 1 Gm Premix) 1 gm in 50 mls @ 100 mls/hr IVPB Q12H [facility] Last Admin: 11/24/16 06:02 Dose: 100 mls/hr Ampicillin 2 gm/ Sodium (Chloride) 100 mls @ 50 mls/hr IVPB Q6H [facility] Last Admin: 11/24/16 08:07 Dose: 50 mls/hr Amikacin Sulfate 500 mg/ (Dextrose) 102 mls @ 204 mls/hr IVPB Q12H [facility] Last Admin: 11/24/16 03:47 Dose: 204 mls/hr Magnesium Hydroxide (Milk Of Magnesia) 30 ml PO DAILY PRN PRN Reason: Constipation Last Admin: 11/24/16 00:13 Dose: 30 ml Metoprolol Tartrate (Lopressor) 50 mg PO BID [facility] Last Admin: 11/23/16 18:00 Dose: 50 mg Oxycodone/Acetaminophen (Percocet 5/325 Mg Tab) 1 tab PO Q4H PRN PRN Reason: Pain, moderate (4-7) Stop: 11/26/16 02:37 Last Admin: 11/24/16 08:06 Dose: 1 tab Saccharomyces Boulardii (Florastor) 250 mg PO BID [facility] Last Admin: 11/23/16 17:31 Dose: 250 mg - Labs Labs: 11/24/16 07:09 11/24/16 07:09 PT 18.3 SECONDS (9.7-12.2) H 11/15/16 05:53 INR 1.6 11/15/16 05:53 APTT 31 SECONDS (21-34) 11/15/16 05:53 - Constitutional Appears: No Acute Distress - Head Exam Head Exam: NORMOCEPHALIC - Eye Exam Eye Exam: Normal appearance - ENT Exam ENT Exam: Mucous Membranes Moist - Respiratory Exam Respiratory Exam: NORMAL BREATHING PATTERN - Cardiovascular Exam Cardiovascular Exam: +S1, +S2 - GI/Abdominal Exam GI & Abdominal Exam: Soft - Neurological Exam Neurological Exam: Alert, Awake, Oriented x3 - Psychiatric Exam Psychiatric exam: Normal Mood - Skin Skin Exam: Dry Assessment and Plan - Assessment and Plan (Free Text) Assessment: 81yo M s/p bilateral LE debridement POD#9 - Wound cx from 11/17: pseudomonas x2 -Repeat Wound Cx: +Pseudomonas -Gabapentin - Pain control PRN -Abx per ID - repeat wound cx demonstrated presence of pseudomonas again. Patient will not be able to obtain skin grafts until this infection clears. Further recs per Dr. Ron Epps PGY-2
[2016-11-24] MEDS: Saccharomyces Boulardi 250 mg Cap PO SCH ×2 (09:45→17:45)
--- NOTE | 2016-11-24 11:20 | CP.PCM.PN ---
Subjective - Date & Time of Evaluation Date of Evaluation: 11/24/16 Time of Evaluation: 07:15 - Subjective Subjective: PGY-[address] Verdin Patient seen and examined at bedside. No acute events overnight. Patient's bilateral leg pain is improving. Patient denies fever, chills, shortness of breath, chest pain, abdominal pain, nausea, vomiting or diarrhea. Objective - Vital Signs/Intake and Output Vital Signs (last 24 hours): Temp Pulse Resp BP Pulse Ox 98.1 F 90 18 151/77 H 99 11/24/16 07:30 11/24/16 07:30 11/24/16 07:30 11/24/16 07:30 11/24/16 07:30 Intake and Output: 11/24/16 11/24/16 06:59 18:59 Intake Total 800 Output Total 1400 Balance -600 - Medications Medications: Current Medications Acetaminophen (Tylenol 325mg Tab) 975 mg PO Q8 [facility] Last Admin: 11/24/16 06:00 Dose: Not Given Aspirin (Aspirin Chewable) 81 mg PO DAILY [facility] Last Admin: 11/24/16 09:45 Dose: 81 mg Clopidogrel Bisulfate (Plavix) 75 mg PO DAILY [facility] Last Admin: 11/24/16 09:45 Dose: 75 mg Famotidine (Pepcid) 20 mg PO BID [facility] Last Admin: 11/24/16 09:45 Dose: 20 mg Ferrous Sulfate (Feosol) 325 mg PO DAILY [facility] Last Admin: 11/24/16 09:45 Dose: 325 mg Gabapentin (Neurontin) 100 mg PO BID [facility] Last Admin: 11/24/16 09:45 Dose: 100 mg Cefepime HCl (Maxipime Iv 1 Gm Premix) 1 gm in 50 mls @ 100 mls/hr IVPB Q12H [facility] Last Admin: 11/24/16 06:02 Dose: 100 mls/hr Ampicillin 2 gm/ Sodium (Chloride) 100 mls @ 50 mls/hr IVPB Q6H [facility] Last Admin: 11/24/16 08:07 Dose: 50 mls/hr Amikacin Sulfate 500 mg/ (Dextrose) 102 mls @ 204 mls/hr IVPB Q12H [facility] Last Admin: 11/24/16 03:47 Dose: 204 mls/hr Magnesium Hydroxide (Milk Of Magnesia) 30 ml PO DAILY PRN PRN Reason: Constipation Last Admin: 11/24/16 00:13 Dose: 30 ml Metoprolol Tartrate (Lopressor) 50 mg PO BID [facility] Last Admin: 11/24/16 09:45 Dose: 50 mg Oxycodone/Acetaminophen (Percocet 5/325 Mg Tab) 1 tab PO Q4H PRN PRN Reason: Pain, moderate (4-7) Stop: 11/26/16 02:37 Last Admin: 11/24/16 08:06 Dose: 1 tab Saccharomyces Boulardii (Florastor) 250 mg PO BID [facility] Last Admin: 11/24/16 09:45 Dose: 250 mg - Labs Labs: 11/24/16 07:09 11/24/16 07:09 PT 18.3 SECONDS (9.7-12.2) H 11/15/16 05:53 INR 1.6 11/15/16 05:53 APTT 31 SECONDS (21-34) 11/15/16 05:53 - Constitutional Appears: Non-toxic, No Acute Distress - Head Exam Head Exam: ATRAUMATIC, NORMAL INSPECTION - Eye Exam Eye Exam: Normal appearance - ENT Exam ENT Exam: Mucous Membranes Moist - Neck Exam Neck Exam: Normal Inspection - Respiratory Exam Respiratory Exam: Clear to Ausculation Bilateral, NORMAL BREATHING PATTERN. absent: Respiratory Distress - Cardiovascular Exam Cardiovascular Exam: REGULAR RHYTHM, +S1, +S2. absent: Murmur - GI/Abdominal Exam GI & Abdominal Exam: Soft, Normal Bowel Sounds. absent: Tenderness - Extremities Exam Additional comments: Bilateral lower extremity wound dressing clean, dry and intact. - Neurological Exam Neurological Exam: Alert, Awake, Oriented x3 - Psychiatric Exam Psychiatric exam: Normal Affect, Normal Mood - Skin Skin Exam: Normal Color, Warm Assessment and Plan - Assessment and Plan (Free Text) Assessment: Bilateral LE leg ulcers + Pseudomonas Abx as follows: 1. Amikkacin 500 mg IVPB q12 hours (started 11/19) 2. Ampicillin 50mg IVPB Q6 hours (started 11/19) 3. Cefepime 1gram IVPB Q12 hours (started 11/17) Florastor 250mg PO BID Dr. Allison consulted, help appreciated -> Patient will need abx for at least another 2 weeks. Follow vascular surgery recommendations - s/p OR 11/15 wound debridement of anterior bilateral lower extremities Wound cultures 11/21 - Pseudomonas, Alisha Albicans Wound cultures 11/17 - Pseudomonas Wound cultures 11/15 - Pseudomonas, E. Faecelia, Klebsiella Percocet 1 tab PO Q4 prn moderate pain Per surgery, will plan for skin graft once cultures are negative Topical silvadene Wound dress change by surgery PICC Line in place Amikacin level 6.5 11/21 Anemia- stable Stable 10 one unit of PRBC ordered 11/15 s/p transfusion 1 U PRBC on 11/13. Vitamin B12 normal Iron 12, % iron 5%, ferritin 94 Feosol 325mg PO Daily Hx Valve replacement Dr. Duggan consulted, help appreciated Resume ASA 81 mg PO daily and Plavix 75mg PO daily HTN Lopressor 50mg PO BID Constipation Milk of Magnesia prn Prophylaxis Pepcid 20mg PO BID Tylenol Heart healthy diet Will add PO supplements to diet - Glucerna Disposition: CARROL placement pending, insurance issue Discussed with Dr. Verdin. All management per Dr. Verdin.
--- NOTE | 2016-11-24 17:37 | CP.PCM.PN ---
Subjective - Date & Time of Evaluation Date of Evaluation: 11/24/16 Time of Evaluation: 08:00 - Subjective Subjective: Patient's bilateral leg pain is improving. Patient denies fever, chills, shortness of breath, chest pain, abdominal pain, nausea, vomiting or diarrhea. Objective - Vital Signs/Intake and Output Vital Signs (last 24 hours): Temp Pulse Resp BP Pulse Ox 98.3 F 82 20 130/78 97 11/24/16 15:11 11/24/16 15:11 11/24/16 15:11 11/24/16 15:11 11/24/16 15:11 Intake and Output: 11/24/16 11/24/16 06:59 18:59 Intake Total 800 750 Output Total 1400 Balance -600 750 - Medications Medications: Current Medications Acetaminophen (Tylenol 325mg Tab) 975 mg PO Q8 [facility] Last Admin: 11/24/16 13:28 Dose: Not Given Aspirin (Aspirin Chewable) 81 mg PO DAILY [facility] Last Admin: 11/24/16 09:45 Dose: 81 mg Clopidogrel Bisulfate (Plavix) 75 mg PO DAILY [facility] Last Admin: 11/24/16 09:45 Dose: 75 mg Famotidine (Pepcid) 20 mg PO BID [facility] Last Admin: 11/24/16 09:45 Dose: 20 mg Ferrous Sulfate (Feosol) 325 mg PO DAILY [facility] Last Admin: 11/24/16 09:45 Dose: 325 mg Gabapentin (Neurontin) 100 mg PO BID [facility] Last Admin: 11/24/16 09:45 Dose: 100 mg Cefepime HCl (Maxipime Iv 1 Gm Premix) 1 gm in 50 mls @ 100 mls/hr IVPB Q12H [facility] Last Admin: 11/24/16 06:02 Dose: 100 mls/hr Ampicillin 2 gm/ Sodium (Chloride) 100 mls @ 50 mls/hr IVPB Q6H [facility] Last Admin: 11/24/16 13:50 Dose: 50 mls/hr Amikacin Sulfate 500 mg/ (Dextrose) 102 mls @ 204 mls/hr IVPB Q12H [facility] Last Admin: 11/24/16 15:02 Dose: 204 mls/hr Magnesium Hydroxide (Milk Of Magnesia) 30 ml PO DAILY PRN PRN Reason: Constipation Last Admin: 11/24/16 14:17 Dose: 30 ml Metoprolol Tartrate (Lopressor) 50 mg PO BID [facility] Last Admin: 11/24/16 09:45 Dose: 50 mg Oxycodone/Acetaminophen (Percocet 5/325 Mg Tab) 1 tab PO Q4H PRN PRN Reason: Pain, moderate (4-7) Stop: 11/26/16 02:37 Last Admin: 11/24/16 08:06 Dose: 1 tab Saccharomyces Boulardii (Florastor) 250 mg PO BID [facility] Last Admin: 11/24/16 09:45 Dose: 250 mg - Labs Labs: 11/24/16 07:09 11/24/16 07:09 PT 18.3 SECONDS (9.7-12.2) H 11/15/16 05:53 INR 1.6 11/15/16 05:53 APTT 31 SECONDS (21-34) 11/15/16 05:53 - Constitutional Appears: Non-toxic, Chronically Ill - Head Exam Head Exam: NORMOCEPHALIC - Eye Exam Eye Exam: PERRL. absent: Scleral icterus - ENT Exam ENT Exam: Mucous Membranes Dry - Neck Exam Neck Exam: absent: Lymphadenopathy - Respiratory Exam Respiratory Exam: Decreased Breath Sounds, Clear to Ausculation Bilateral - Cardiovascular Exam Cardiovascular Exam: REGULAR RHYTHM, +S1, +S2 - GI/Abdominal Exam GI & Abdominal Exam: Distended - Rectal Exam Rectal Exam: Deferred - Exam Exam: NORMAL INSPECTION - Extremities Exam Extremities Exam: absent: Pedal Edema - Back Exam Back Exam: absent: CVA tenderness (L), CVA tenderness (R) - Neurological Exam Neurological Exam: Alert, Awake, Oriented x3 Assessment and Plan (1) Cellulitis Status: Acute (2) Dehydration Status: Acute
--- NOTE | 2016-11-24 20:21 | PN ---
SUBJECTIVE: The patient denies chest pain or shortness of breath. PHYSICAL EXAMINATION: VITAL SIGNS: Blood pressure 151/67, heart rate 90, temperature 98.1 and respirations 18. HEENT: Pale conjunctivae. CHEST: Clear. HEART: S1 and S2 regular. Grade 4/6 ejection systolic murmur over left sternal border. ABDOMEN: Soft. EXTREMITIES: Bilateral dressing of both lower extremities. LABORATORY DATA: Hemoglobin and hematocrit 10 and 32.2. White count and platelet count are within normal limits. Today's SMA-7 is within normal limit. ASSESSMENT: 1. Bilateral leg cellulitis with multimicrobial gram-negative rods including Pseudomonas aeruginosa, Enterococcus faecalis, Klebsiella pneumoniae, beside Alisah albicans. 2. 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 3. Anemia. RECOMMENDATION: Continue current IV cefepime, IV amikacin or IV ampicillin. Continue aspirin 81 mg once daily, Lopressor 50 mg twice a day, Plavix 75 mg once a day. Tobias Duggan MD
[2016-11-25] MEDS: Amikacin 500 MG in Dextrose 5% In Water 100 ML IVPB SCH ×2 (02:35→14:33)
[2016-11-25] MEDS: Oxycodone/Acetaminophen 5/325 mg Tab PO PRN ×3 (02:38→20:50)
[2016-11-25] MEDS: Cefepime IV 1 gm in Dextrose 1 GM/50 ML BAG IVPB SCH ×2 (06:09→19:30)
[2016-11-25 06:54] LABS: BASO # 0.1 K/uL (0.0-0.2); BASO % 0.8 % (0.0-2.0); EOS # 0.4 K/uL (0.0-0.7); EOS % 4.1 % (0.0-4.0); LYMPH # 2.8 K/uL (1.0-4.3); LYMPH % 26.2 % (20.0-40.0); MEAN CELL VOLUME 70.5 fL (80.0-94.0); MEAN CORPUSCULAR HEMOGLOBIN 22.2 pg (27.0-31.0); MEAN CORPUSCULAR HGB CONC 31.5 g/dL (33.0-37.0); MEAN PLATELET VOLUME 8.7 fL (7.2-11.7); MONO # 1.3 K/uL (0.0-0.8); MONO % 11.7 % (0.0-10.0); RED CELL DISTRIBUTION WIDTH 26.4 % (11.5-14.5); WHITE BLOOD COUNT 10.8 K/uL (4.8-10.8)
[2016-11-25 07:11] LABS: ALB/GLOB RATIO 0.9 (1.0-2.1); ALKALINE PHOSPHATASE 84 U/L (38-126); ALT/SGPT 37 U/L (21-72); AST/SGOT 37 U/L (17-59); BILIRUBIN,TOTAL 0.3 mg/dL (0.2-1.3); BLOOD UREA NITROGEN 23 mg/dL (9-20); CALCIUM 9.1 mg/dl (8.6-10.4); CARBON DIOXIDE 29 mmol/L (22-30); CHLORIDE 101 mmol/L (98-107); GFR AFRICAN-AMERICAN > 60; GLUCOSE,RANDOM 87 mg/dL (75-110); MAGNESIUM 2.4 mg/dL (1.6-2.3); PHOSPHOROUS 3.3 mg/dL (2.5-4.5); POTASSIUM 4.6 mmol/L (3.6-5.2); SODIUM 136 mmol/L (132-148); TOTAL PROTEIN 6.9 g/dL (6.3-8.3)
[2016-11-25] MEDS: Saccharomyces Boulardi 250 mg Cap PO SCH ×2 (10:07→18:32)
--- NOTE | 2016-11-26 01:00 | PN ---
DATE: 11/25/2016 SUBJECTIVE: The patient denies any dizziness or weakness. He ambulated today. No chest pain. PHYSICAL EXAMINATION: VITAL SIGNS: Blood pressure 111/65, heart rate 67, temperature 98.1, respirations 20. HEENT: Pale conjunctivae. CHEST: Clear. HEART: S1 and S2 regular. EXTREMITIES: Bilateral dressings applied to both lower extremities. LABORATORY DATA: Today's SMA-7 is within normal limits except for BUN of 23. Magnesium slightly elevated at 2.4. Today's hemoglobin and hematocrit 10.4 and 33, white count and platelet count are within normal limits. ASSESSMENT: 1. Bilateral leg cellulitis, status post debridement. 2. Anemia. 3. 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 RECOMMENDATIONS: Continue current triple intravenous antibiotics of IV ampicillin, amikacin, and cefepime. Continue Lopressor 50 mg twice a day, hold for heart rate below 60. Discontinue magnesium hydroxide. Tobias Duggan MD
[2016-11-26] MEDS: Amikacin 500 MG in Dextrose 5% In Water 100 ML IVPB SCH (04:13)
[2016-11-26] MEDS: Cefepime IV 1 gm in Dextrose 1 GM/50 ML BAG IVPB SCH (06:10)
[2016-11-26 07:40] LABS: BASO # 0.1 K/uL (0.0-0.2); BASO % 0.8 % (0.0-2.0); EOS # 0.4 K/uL (0.0-0.7); EOS % 3.5 % (0.0-4.0); HEMATOCRIT 35.3 % (35.0-51.0); LYMPH # 3.3 K/uL (1.0-4.3); LYMPH % 32.4 % (20.0-40.0); MEAN CELL VOLUME 71.6 fL (80.0-94.0); MEAN CORPUSCULAR HEMOGLOBIN 22.2 pg (27.0-31.0); MEAN PLATELET VOLUME 9.1 fL (7.2-11.7); MONO % 9.6 % (0.0-10.0); NRBC % 0.1 % (0.0-2.0); RED CELL DISTRIBUTION WIDTH 26.1 % (11.5-14.5); WHITE BLOOD COUNT 10.2 K/uL (4.8-10.8)
[2016-11-26 07:45] LABS: CHLORIDE 101 mmol/L (98-107); POTASSIUM 4.2 mmol/L (3.6-5.2); SODIUM 137 mmol/L (132-148)
[2016-11-26 07:47] LABS: BILIRUBIN,TOTAL 0.6 mg/dL (0.2-1.3); CARBON DIOXIDE 28 mmol/L (22-30); GFR AFRICAN-AMERICAN > 60
[2016-11-26 07:48] LABS: ALB/GLOB RATIO 0.8 (1.0-2.1); ALKALINE PHOSPHATASE 93 U/L (38-126); ALT/SGPT 46 U/L (21-72); AST/SGOT 39 U/L (17-59); BLOOD UREA NITROGEN 21 mg/dL (9-20); CALCIUM 9.8 mg/dl (8.6-10.4); GLUCOSE,RANDOM 89 mg/dL (75-110); MAGNESIUM 2.1 mg/dL (1.6-2.3); PHOSPHOROUS 3.9 mg/dL (2.5-4.5); TOTAL PROTEIN 7.8 g/dL (6.3-8.3)
[2016-11-26] MEDS: Saccharomyces Boulardi 250 mg Cap PO SCH ×2 (10:00→18:14)
--- NOTE | 2016-11-26 11:23 | CP.PCM.PN ---
Subjective - Date & Time of Evaluation Date of Evaluation: 11/26/16 Time of Evaluation: 11:23 - Subjective Subjective: Vascular Surgery Progress Note for Dr. Velasquez Pt seen and examined at bedside this AM. No acute event overnight. Patient sitting in chair comfortably at bedside. Dressings on feet were changed today by resident. Wounds seem to be improving but will continue to monitor. Patient' s only complaint is dry skin. Objective - Vital Signs/Intake and Output Vital Signs (last 24 hours): Temp Pulse Resp BP Pulse Ox 98 F 94 H 20 118/69 99 11/26/16 09:15 11/26/16 09:15 11/26/16 09:15 11/26/16 09:15 11/26/16 09:15 Intake and Output: 11/26/16 11/26/16 06:59 18:59 Intake Total 300 Output Total 500 Balance -200 - Medications Medications: Current Medications Acetaminophen (Tylenol 325mg Tab) 975 mg PO Q8 [facility] Last Admin: 11/25/16 21:13 Dose: Not Given Aspirin (Aspirin Chewable) 81 mg PO DAILY [facility] Last Admin: 11/26/16 09:59 Dose: 81 mg Clopidogrel Bisulfate (Plavix) 75 mg PO DAILY [facility] Last Admin: 11/26/16 09:59 Dose: 75 mg Famotidine (Pepcid) 20 mg PO BID [facility] Last Admin: 11/26/16 09:59 Dose: 20 mg Ferrous Sulfate (Feosol) 325 mg PO DAILY [facility] Last Admin: 11/26/16 09:59 Dose: 325 mg Gabapentin (Neurontin) 100 mg PO BID [facility] Last Admin: 11/26/16 10:00 Dose: 100 mg Cefepime HCl (Maxipime Iv 1 Gm Premix) 1 gm in 50 mls @ 100 mls/hr IVPB Q12H [facility] Last Admin: 11/26/16 06:10 Dose: 100 mls/hr Ampicillin 2 gm/ Sodium (Chloride) 100 mls @ 50 mls/hr IVPB Q6H [facility] Last Admin: 11/26/16 08:27 Dose: 50 mls/hr Amikacin Sulfate 500 mg/ (Dextrose) 102 mls @ 204 mls/hr IVPB Q12H [facility] Last Admin: 11/26/16 04:13 Dose: 204 mls/hr Lactulose (Enulose) 20 gm PO HS [facility] Last Admin: 11/25/16 22:44 Dose: 20 gm Metoprolol Tartrate (Lopressor) 50 mg PO BID [facility] Last Admin: 11/26/16 10:01 Dose: 50 mg Saccharomyces Boulardii (Florastor) 250 mg PO BID [facility] Last Admin: 11/26/16 10:00 Dose: 250 mg - Labs Labs: 11/26/16 07:18 11/26/16 07:18 PT 18.3 SECONDS (9.7-12.2) H 11/15/16 05:53 INR 1.6 11/15/16 05:53 APTT 31 SECONDS (21-34) 11/15/16 05:53 - Constitutional Appears: No Acute Distress - Head Exam Head Exam: ATRAUMATIC, NORMOCEPHALIC - Eye Exam Eye Exam: Normal appearance - ENT Exam ENT Exam: Mucous Membranes Moist - Neck Exam Neck Exam: Full ROM - Respiratory Exam Respiratory Exam: NORMAL BREATHING PATTERN - Cardiovascular Exam Cardiovascular Exam: REGULAR RHYTHM - Extremities Exam Extremities Exam: Tenderness (wound site). absent: Calf Tenderness, Pedal Edema Additional comments: bilateral dressing were changed, wounds seem to be improving no drainage noted dressings now clean dry and intact - Neurological Exam Neurological Exam: Alert, Awake, Oriented x3 - Psychiatric Exam Psychiatric exam: Normal Affect, Normal Mood - Skin Skin Exam: Dry Assessment and Plan - Assessment and Plan (Free Text) Plan: 81 M s/p bilateral LE debridement POD #10 - Dressings changed today - Wound cx from 11/17: pseudomonas x2 - f/u repeat Wound Cx - Gabapentin - Pain control PRN - Abx per ID - Patient will not be able to obtain skin grafts until this infection clears. Will AJAY Perkins PGY1
--- NOTE | 2016-11-26 13:22 | CP.PCM.PN ---
Subjective - Date & Time of Evaluation Date of Evaluation: 11/26/16 Time of Evaluation: 07:00 - Subjective Subjective: still has pus/ drainage from legs + Pseudomaonas MDRO may need avycaz Objective - Vital Signs/Intake and Output Vital Signs (last 24 hours): Temp Pulse Resp BP Pulse Ox 98 F 94 H 20 118/69 99 11/26/16 09:15 11/26/16 09:15 11/26/16 09:15 11/26/16 09:15 11/26/16 09:15 Intake and Output: 11/26/16 11/26/16 06:59 18:59 Intake Total 300 Output Total 500 Balance -200 - Medications Medications: Current Medications Acetaminophen (Tylenol 325mg Tab) 975 mg PO Q8 [facility] Last Admin: 11/25/16 21:13 Dose: Not Given Aspirin (Aspirin Chewable) 81 mg PO DAILY [facility] Last Admin: 11/26/16 09:59 Dose: 81 mg Clopidogrel Bisulfate (Plavix) 75 mg PO DAILY [facility] Last Admin: 11/26/16 09:59 Dose: 75 mg Famotidine (Pepcid) 20 mg PO BID [facility] Last Admin: 11/26/16 09:59 Dose: 20 mg Ferrous Sulfate (Feosol) 325 mg PO DAILY [facility] Last Admin: 11/26/16 09:59 Dose: 325 mg Gabapentin (Neurontin) 100 mg PO BID [facility] Last Admin: 11/26/16 10:00 Dose: 100 mg Ampicillin 2 gm/ Sodium (Chloride) 100 mls @ 50 mls/hr IVPB Q6H [facility] Last Admin: 11/26/16 08:27 Dose: 50 mls/hr Amikacin Sulfate 500 mg/ (Dextrose) 102 mls @ 204 mls/hr IVPB Q12H [facility] Last Admin: 11/26/16 04:13 Dose: 204 mls/hr Cefepime HCl (Maxipime Iv 2 Gm Premix) 2 gm in 100 mls @ 200 mls/hr IVPB Q8H [facility] Stop: 12/01/16 13:31 Lactulose (Enulose) 20 gm PO HS [facility] Last Admin: 11/25/16 22:44 Dose: 20 gm Metoprolol Tartrate (Lopressor) 50 mg PO BID [facility] Last Admin: 11/26/16 10:01 Dose: 50 mg Saccharomyces Boulardii (Florastor) 250 mg PO BID [facility] Last Admin: 11/26/16 10:00 Dose: 250 mg Vitamin A (Vitamin A & D Oint Ud Foilpak) 1 ea TOP BID [facility] - Labs Labs: 11/26/16 07:18 11/26/16 07:18 PT 18.3 SECONDS (9.7-12.2) H 11/15/16 05:53 INR 1.6 11/15/16 05:53 APTT 31 SECONDS (21-34) 11/15/16 05:53 - Constitutional Appears: Non-toxic, Chronically Ill - Head Exam Head Exam: NORMOCEPHALIC - Eye Exam Eye Exam: PERRL - ENT Exam ENT Exam: Mucous Membranes Dry - Neck Exam Neck Exam: absent: Lymphadenopathy - Respiratory Exam Respiratory Exam: Decreased Breath Sounds - Cardiovascular Exam Cardiovascular Exam: REGULAR RHYTHM - GI/Abdominal Exam GI & Abdominal Exam: Distended Assessment and Plan (1) Cellulitis Status: Acute (2) Dehydration Status: Acute - Assessment and Plan (Free Text) Assessment: cont iv rx may need debridement
[2016-11-26] MEDS ORDERED: AMIKACIN IVPB SCH (13:30)
[2016-11-26] MEDS ORDERED: DEXTROSE 5% IVPB SCH (13:30)
[2016-11-26] MEDS ORDERED: WATER IVPB SCH (13:30)
[2016-11-26] MEDS: Vitamins A & D Oint UD Foilpak TOP SCH ×2 (13:30→18:00)
[2016-11-26] MEDS: Cefepime IV 2 gm in Dextrose 2 GM/100 ML BAG IVPB SCH ×2 (13:54→21:56)
--- NOTE | 2016-11-26 18:31 | PN ---
SUBJECTIVE: The patient is comfortable and ambulated. Has no chest pain or dizziness. Bilateral leg dressing was performed this morning. PHYSICAL EXAMINATION: VITAL SIGNS: Blood pressure 118/69, heart rate 94, temperature 98, respirations 20. HEENT: Pale conjunctivae. CHEST: Clear. HEART: S1 and S2 regular. Grade 4/6 ejection systolic murmur over left sternal border. ABDOMEN: Soft. EXTREMITIES: Cellulitic dressing is applied to both legs. LABORATORY DATA: Hemoglobin and hematocrit 11 and 35.3, white count and platelet count are within normal limits. Today's SMA-7 is within normal limits, except BUN of 21. ASSESSMENT: 1. Bilateral leg cellulitis. 2. Mild aortic stenosis, status post mild prosthetic aortic valve replacement. 3. Improving anemia. RECOMMENDATIONS: Continue current IV amikacin, IV ampicillin and IV cefepime. Continue aspirin 81 mg once a day, ferrous sulfate 1 tablet once a day, and Plavix 75 mg once a day. Tobias Duggan MD
[2016-11-27] MEDS: WATER IVPB SCH (03:20)
[2016-11-27] MEDS: DEXTROSE 5% IVPB SCH (03:20)
[2016-11-27] MEDS: AMIKACIN IVPB SCH (03:20)
[2016-11-27] MEDS: Cefepime IV 2 gm in Dextrose 2 GM/100 ML BAG IVPB SCH ×3 (05:54→20:53)
[2016-11-27 07:36] LABS: BASO # 0.1 K/uL (0.0-0.2); BASO % 0.8 % (0.0-2.0); EOS # 0.4 K/uL (0.0-0.7); EOS % 3.9 % (0.0-4.0); HEMATOCRIT 31.3 % (35.0-51.0); LYMPH # 2.7 K/uL (1.0-4.3); LYMPH % 29.7 % (20.0-40.0); MEAN CELL VOLUME 70.9 fL (80.0-94.0); MEAN CORPUSCULAR HEMOGLOBIN 22.3 pg (27.0-31.0); MEAN CORPUSCULAR HGB CONC 31.5 g/dL (33.0-37.0); MEAN PLATELET VOLUME 9.4 fL (7.2-11.7); MONO # 1.1 K/uL (0.0-0.8); MONO % 12.7 % (0.0-10.0); NRBC % 0.1 % (0.0-2.0); RED CELL DISTRIBUTION WIDTH 26.4 % (11.5-14.5)
[2016-11-27 07:55] LABS: CHLORIDE 101 mmol/L (98-107)
[2016-11-27 07:56] LABS: POTASSIUM 4.3 mmol/L (3.6-5.2); SODIUM 137 mmol/L (132-148)
[2016-11-27 07:58] LABS: ALB/GLOB RATIO 0.8 (1.0-2.1); ALKALINE PHOSPHATASE 74 U/L (38-126); ALT/SGPT 43 U/L (21-72); AST/SGOT 34 U/L (17-59); BILIRUBIN,TOTAL 0.5 mg/dL (0.2-1.3); BLOOD UREA NITROGEN 20 mg/dL (9-20); CARBON DIOXIDE 29 mmol/L (22-30); GFR AFRICAN-AMERICAN > 60; TOTAL PROTEIN 6.8 g/dL (6.3-8.3)
[2016-11-27 07:59] LABS: CALCIUM 9.4 mg/dl (8.6-10.4); GLUCOSE,RANDOM 80 mg/dL (75-110); PHOSPHOROUS 3.5 mg/dL (2.5-4.5)
[2016-11-27] MEDS: Vitamins A & D Oint UD Foilpak TOP SCH ×2 (09:33→18:32)
[2016-11-27] MEDS: Saccharomyces Boulardi 250 mg Cap PO SCH ×2 (09:33→18:33)
--- NOTE | 2016-11-27 09:42 | CP.PCM.PN ---
Subjective - Date & Time of Evaluation Date of Evaluation: 11/27/16 Time of Evaluation: 09:37 - Subjective Subjective: Medicine Note for Dr. Verdin's Service Pt seen and examined at bedside. He is sitting up in the chair next to his bed. He states that he continues to have pain in his RLE but it is controlled by the medications. He denies all other acute symptoms covered in ROS. Pt had his wound debrided on 11/15 and may need repeat debridement. Wound is continuing to grow gram negative rods. Objective - Vital Signs/Intake and Output Vital Signs (last 24 hours): Temp Pulse Resp BP Pulse Ox 98.1 F 69 20 125/75 100 11/27/16 08:49 11/27/16 08:49 11/27/16 08:49 11/27/16 08:49 11/27/16 08:49 Intake and Output: 11/27/16 11/27/16 06:59 18:59 Intake Total 780 Output Total 1825 Balance -1045 - Medications Medications: Current Medications Acetaminophen (Tylenol 325mg Tab) 975 mg PO Q8 [facility] Last Admin: 11/27/16 05:54 Dose: 975 mg Aspirin (Aspirin Chewable) 81 mg PO DAILY [facility] Last Admin: 11/26/16 09:59 Dose: 81 mg Clopidogrel Bisulfate (Plavix) 75 mg PO DAILY [facility] Last Admin: 11/26/16 09:59 Dose: 75 mg Famotidine (Pepcid) 20 mg PO BID [facility] Last Admin: 11/26/16 18:13 Dose: 20 mg Ferrous Sulfate (Feosol) 325 mg PO DAILY [facility] Last Admin: 11/26/16 09:59 Dose: 325 mg Gabapentin (Neurontin) 100 mg PO BID [facility] Last Admin: 11/26/16 18:12 Dose: 100 mg Ampicillin 2 gm/ Sodium (Chloride) 100 mls @ 50 mls/hr IVPB Q6H [facility] Last Admin: 11/27/16 02:16 Dose: 50 mls/hr Cefepime HCl (Maxipime Iv 2 Gm Premix) 2 gm in 100 mls @ 200 mls/hr IVPB Q8H [facility] Stop: 12/01/16 13:31 Last Admin: 11/27/16 05:54 Dose: 200 mls/hr Amikacin Sulfate 750 mg/ (Dextrose) 103 mls @ 204 mls/hr IVPB Q24H [facility] Last Admin: 11/27/16 03:20 Dose: 204 mls/hr Lactulose (Enulose) 20 gm PO HS [facility] Last Admin: 11/26/16 21:57 Dose: Not Given Metoprolol Tartrate (Lopressor) 50 mg PO BID [facility] Last Admin: 11/26/16 18:12 Dose: 50 mg Saccharomyces Boulardii (Florastor) 250 mg PO BID [facility] Last Admin: 11/26/16 18:14 Dose: 250 mg Vitamin A (Vitamin A & D Oint Ud Foilpak) 1 ea TOP BID [facility] Last Admin: 11/26/16 18:00 Dose: Not Given - Labs Labs: 11/27/16 07:18 11/27/16 07:18 PT 18.3 SECONDS (9.7-12.2) H 11/15/16 05:53 INR 1.6 11/15/16 05:53 APTT 31 SECONDS (21-34) 11/15/16 05:53 - Head Exam Head Exam: ATRAUMATIC - Eye Exam Eye Exam: EOMI, Normal appearance - ENT Exam ENT Exam: Mucous Membranes Moist - Respiratory Exam Respiratory Exam: Clear to Ausculation Bilateral, NORMAL BREATHING PATTERN - Cardiovascular Exam Cardiovascular Exam: REGULAR RHYTHM - GI/Abdominal Exam GI & Abdominal Exam: Soft. absent: Tenderness - Extremities Exam Additional comments: wound dressing is c/d/i - Neurological Exam Neurological Exam: Alert, Awake, Oriented x3 Assessment and Plan - Assessment and Plan (Free Text) Plan: Bilateral LE leg ulcers + Pseudomonas Abx as follows: 1. Amikkacin 750 mg IVPB q24 hours (started on 11/19 and dose adjusted on 11/27) Dose adjusted as per ID rec 2. Ampicillin 50mg IVPB Q6 hours (started 11/19) 3. Cefepime 1gram IVPB Q12 hours (started 11/17) Testing for avycaz requested by ID Florastor 250mg PO BID Dr. Allison consulted, help appreciated -> Patient will need abx for at least another 2 weeks. Follow vascular surgery recommendations - s/p OR 11/15 wound debridement of anterior bilateral lower extremities Wound cultures 11/26- Gram negative rods- follow up final read Wound cultures 11/24- Pseudomonas Wound cultures 11/21 - Pseudomonas, Alisha Albicans Wound cultures 11/17 - Pseudomonas Wound cultures 11/15 - Pseudomonas, E. Faecelia, Klebsiella Patient may need further debridement given continued positive cultures Percocet 1 tab PO Q4 prn moderate pain Per surgery, will plan for skin graft once cultures are negative Topical silvadene Wound dress changes by surgery PICC Line in place Amikacin level 6.5 11/21 Anemia- stable Stable 10.4->11->9.8 one unit of PRBC ordered 11/15 s/p transfusion 1 U PRBC on 11/13. Vitamin B12 normal Iron 12, % iron 5%, ferritin 94 Feosol 325mg PO Daily Hx Valve replacement Dr. Duggan consulted, help appreciated Resume ASA 81 mg PO daily and Plavix 75mg PO daily HTN Lopressor 50mg PO BID Constipation Milk of Magnesia prn Prophylaxis Pepcid 20mg PO BID Tylenol Heart healthy diet Will add PO supplements to diet - Glucerna Disposition: CARROL placement pending, insurance issue Case discussed with Dr. Verdin. All management per Dr. Verdin.
--- NOTE | 2016-11-27 10:48 | CP.PCM.PN ---
Subjective - Date & Time of Evaluation Date of Evaluation: 11/27/16 Time of Evaluation: 09:00 - Subjective Subjective: still growing mdro from wound amikacin adjusted testing for avycaz requested wound care in progress no systemic toxicity may need further debridement Objective - Vital Signs/Intake and Output Vital Signs (last 24 hours): Temp Pulse Resp BP Pulse Ox 98.1 F 69 20 125/75 100 11/27/16 08:49 11/27/16 08:49 11/27/16 08:49 11/27/16 08:49 11/27/16 08:49 Intake and Output: 11/27/16 11/27/16 06:59 18:59 Intake Total 780 Output Total 1825 Balance -1045 - Medications Medications: Current Medications Acetaminophen (Tylenol 325mg Tab) 975 mg PO Q8 [facility] Last Admin: 11/27/16 05:54 Dose: 975 mg Aspirin (Aspirin Chewable) 81 mg PO DAILY [facility] Last Admin: 11/27/16 09:33 Dose: 81 mg Clopidogrel Bisulfate (Plavix) 75 mg PO DAILY [facility] Last Admin: 11/27/16 09:32 Dose: 75 mg Famotidine (Pepcid) 20 mg PO BID [facility] Last Admin: 11/27/16 09:33 Dose: 20 mg Ferrous Sulfate (Feosol) 325 mg PO DAILY [facility] Last Admin: 11/27/16 09:33 Dose: 325 mg Gabapentin (Neurontin) 100 mg PO BID [facility] Last Admin: 11/27/16 09:32 Dose: 100 mg Ampicillin 2 gm/ Sodium (Chloride) 100 mls @ 50 mls/hr IVPB Q6H [facility] Last Admin: 11/27/16 09:33 Dose: 50 mls/hr Cefepime HCl (Maxipime Iv 2 Gm Premix) 2 gm in 100 mls @ 200 mls/hr IVPB Q8H [facility] Stop: 12/01/16 13:31 Last Admin: 11/27/16 05:54 Dose: 200 mls/hr Amikacin Sulfate 750 mg/ (Dextrose) 103 mls @ 204 mls/hr IVPB Q24H [facility] Last Admin: 11/27/16 03:20 Dose: 204 mls/hr Lactulose (Enulose) 20 gm PO HS [facility] Last Admin: 11/26/16 21:57 Dose: Not Given Metoprolol Tartrate (Lopressor) 50 mg PO BID [facility] Last Admin: 11/27/16 09:32 Dose: 50 mg Saccharomyces Boulardii (Florastor) 250 mg PO BID [facility] Last Admin: 11/27/16 09:33 Dose: 250 mg Vitamin A (Vitamin A & D Oint Ud Foilpak) 1 ea TOP BID [facility] Last Admin: 11/27/16 09:33 Dose: 1 ea - Labs Labs: 11/27/16 07:18 11/27/16 07:18 PT 18.3 SECONDS (9.7-12.2) H 11/15/16 05:53 INR 1.6 11/15/16 05:53 APTT 31 SECONDS (21-34) 11/15/16 05:53 - Constitutional Appears: Non-toxic, Cachectic, Chronically Ill - Head Exam Head Exam: NORMOCEPHALIC - Eye Exam Eye Exam: PERRL - ENT Exam ENT Exam: Mucous Membranes Dry, Normal External Ear Exam - Neck Exam Neck Exam: absent: Lymphadenopathy - Respiratory Exam Respiratory Exam: Decreased Breath Sounds - Cardiovascular Exam Cardiovascular Exam: REGULAR RHYTHM - GI/Abdominal Exam GI & Abdominal Exam: Distended, Soft - Rectal Exam Rectal Exam: Deferred Assessment and Plan (1) Cellulitis Status: Acute (2) Dehydration Status: Acute
--- NOTE | 2016-11-27 13:45 | PN ---
SUBJECTIVE: The patient denies any chest pain. He is awaiting leg dressing. PHYSICAL EXAMINATION: VITAL SIGNS: Blood pressure 125/75, heart rate 69, temperature 98.1, respirations 20. HEENT: [place] conjunctivae. CHEST: Clear. HEART: S1 and S2 regular. Grade 4/6 ejection systolic murmur over left sternal border. EXTREMITIES: Dressings applied to both legs. LABORATORY DATA: Hemoglobin and hematocrit 9.8 and 31.3, white count and platelet count are within normal limits. SMA-7 is within normal limits. ASSESSMENT: 1. Bilateral leg cellulitis. 2. Anemia. 3. 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 4. Clinically, mild aortic stenosis. RECOMMENDATIONS: Continue current IV amikacin, IV ampicillin and IV cefepime. Continue aspirin 81 mg once a day, Plavix 75 mg once a day, Pepcid 20 mg twice a day. Tobias Duggan MD
[2016-11-28] MEDS: WATER IVPB SCH (04:42)
[2016-11-28] MEDS: DEXTROSE 5% IVPB SCH (04:42)
[2016-11-28] MEDS: AMIKACIN IVPB SCH (04:42)
[2016-11-28 05:05] LABS: BASO # 0.1 K/uL (0.0-0.2); BASO % 0.7 % (0.0-2.0); EOS # 0.4 K/uL (0.0-0.7); EOS % 4.5 % (0.0-4.0); HEMATOCRIT 31.7 % (35.0-51.0); LYMPH # 2.2 K/uL (1.0-4.3); LYMPH % 25.3 % (20.0-40.0); MEAN CORPUSCULAR HEMOGLOBIN 22.5 pg (27.0-31.0); MEAN CORPUSCULAR HGB CONC 31.3 g/dL (33.0-37.0); MEAN PLATELET VOLUME 9.3 fL (7.2-11.7); MONO # 1.3 K/uL (0.0-0.8); MONO % 14.6 % (0.0-10.0); NRBC % 0.1 % (0.0-2.0); RED CELL DISTRIBUTION WIDTH 25.7 % (11.5-14.5); WHITE BLOOD COUNT 8.6 K/uL (4.8-10.8)
[2016-11-28 05:09] LABS: CHLORIDE 103 mmol/L (98-107); SODIUM 139 mmol/L (132-148)
[2016-11-28 05:10] LABS: POTASSIUM 4.1 mmol/L (3.6-5.2)
[2016-11-28 05:12] LABS: ALB/GLOB RATIO 0.8 (1.0-2.1); ALKALINE PHOSPHATASE 80 U/L (38-126); AST/SGOT 31 U/L (17-59); BILIRUBIN,TOTAL 0.4 mg/dL (0.2-1.3); BLOOD UREA NITROGEN 22 mg/dL (9-20); CARBON DIOXIDE 28 mmol/L (22-30); GFR AFRICAN-AMERICAN > 60; TOTAL PROTEIN 6.9 g/dL (6.3-8.3)
[2016-11-28 05:13] LABS: ALT/SGPT 40 U/L (21-72); CALCIUM 9.3 mg/dl (8.6-10.4); GLUCOSE,RANDOM 84 mg/dL (75-110)
[2016-11-28] MEDS: Cefepime IV 2 gm in Dextrose 2 GM/100 ML BAG IVPB SCH ×3 (05:53→21:37)
--- NOTE | 2016-11-28 09:06 | CP.PCM.PN ---
Subjective - Date & Time of Evaluation Date of Evaluation: 11/28/16 Time of Evaluation: 09:06 - Subjective Subjective: Medicine Note for Dr. Verdin's Service Pt seen and examined at bedside. He continues to have pain in his RLE but pain is well controlled by current medications. He denies all other acute symptoms covered in ROS. As per nursing staff no acute events overnight. His wound cx from 11/26 is still gram negative rods without specific identification. Objective - Vital Signs/Intake and Output Vital Signs (last 24 hours): Temp Pulse Resp BP Pulse Ox 98.1 F 92 H 20 122/76 97 11/28/16 08:27 11/28/16 08:27 11/28/16 08:27 11/28/16 08:27 11/28/16 08:27 Intake and Output: 11/28/16 11/28/16 06:59 18:59 Intake Total 350 Output Total 600 Balance -250 - Medications Medications: Current Medications Acetaminophen (Tylenol 325mg Tab) 975 mg PO Q8 [facility] Last Admin: 11/28/16 07:04 Dose: Not Given Aspirin (Aspirin Chewable) 81 mg PO DAILY [facility] Last Admin: 11/27/16 09:33 Dose: 81 mg Clopidogrel Bisulfate (Plavix) 75 mg PO DAILY [facility] Last Admin: 11/27/16 09:32 Dose: 75 mg Famotidine (Pepcid) 20 mg PO BID [facility] Last Admin: 11/27/16 18:32 Dose: 20 mg Ferrous Sulfate (Feosol) 325 mg PO DAILY [facility] Last Admin: 11/27/16 09:33 Dose: 325 mg Gabapentin (Neurontin) 100 mg PO BID [facility] Last Admin: 11/27/16 18:32 Dose: 100 mg Ampicillin 2 gm/ Sodium (Chloride) 100 mls @ 50 mls/hr IVPB Q6H [facility] Last Admin: 11/28/16 07:52 Dose: 50 mls/hr Cefepime HCl (Maxipime Iv 2 Gm Premix) 2 gm in 100 mls @ 200 mls/hr IVPB Q8H [facility] Stop: 12/01/16 13:31 Last Admin: 11/28/16 05:53 Dose: 200 mls/hr Amikacin Sulfate 750 mg/ (Dextrose) 103 mls @ 204 mls/hr IVPB Q24H [facility] Last Admin: 11/28/16 04:42 Dose: Not Given Lactulose (Enulose) 20 gm PO HS [facility] Last Admin: 11/27/16 21:37 Dose: 20 gm Metoprolol Tartrate (Lopressor) 50 mg PO BID [facility] Last Admin: 11/27/16 18:32 Dose: 50 mg Saccharomyces Boulardii (Florastor) 250 mg PO BID [facility] Last Admin: 11/27/16 18:33 Dose: 250 mg Vitamin A (Vitamin A & D Oint Ud Foilpak) 1 ea TOP BID [facility] Last Admin: 11/27/16 18:32 Dose: 1 ea - Labs Labs: 11/28/16 04:57 11/28/16 04:57 PT 18.3 SECONDS (9.7-12.2) H 11/15/16 05:53 INR 1.6 11/15/16 05:53 APTT 31 SECONDS (21-34) 11/15/16 05:53 - Constitutional Appears: No Acute Distress - Head Exam Head Exam: ATRAUMATIC, NORMAL INSPECTION - Eye Exam Eye Exam: EOMI, Normal appearance - ENT Exam ENT Exam: Mucous Membranes Moist - Respiratory Exam Respiratory Exam: Clear to Ausculation Bilateral - Cardiovascular Exam Cardiovascular Exam: REGULAR RHYTHM - GI/Abdominal Exam GI & Abdominal Exam: Soft. absent: Distended, Tenderness - Extremities Exam Additional comments: wound dressing c/d/i - Neurological Exam Neurological Exam: Alert, Awake, Oriented x3 Assessment and Plan - Assessment and Plan (Free Text) Plan: Bilateral LE leg ulcers + Pseudomonas Dr. Allison consulted, help appreciated Patient will need abx for at least another 2 weeks. Abx as follows: 1. Amikkacin 750 mg IVPB q24 hours (started on 11/19 and dose adjusted on ) Dose adjusted as per ID rec 2. Ampicillin 50mg IVPB Q6 hours (started 11/19) 3. Cefepime 1gram IVPB Q12 hours (started 11/17) -Testing for avycaz requested by ID- results pending -Florastor 250mg PO BID Follow vascular surgery recommendations - s/p OR 11/15 wound debridement of anterior bilateral lower extremities Wound cultures 11/26- Gram negative rods- follow up final read Wound cultures 11/24- Pseudomonas Wound cultures 11/21 - Pseudomonas, Alisha Albicans Wound cultures 11/17 - Pseudomonas Wound cultures 11/15 - Pseudomonas, E. Faecelia, Klebsiella Patient may need further debridement given continued positive cultures Percocet 1 tab PO Q4 prn moderate pain- pain is well controlled Per surgery, will plan for skin graft once cultures are negative Topical silvadene Wound dress changes by surgery PICC Line in place Amikacin level 6.5 11/21 At this time abx treatment is being evaluated by ID with consideration for Avycaz. Patients wound cultures continue to grow gram negative rods, despite current abx. Anemia- stable Stable 10.4->11->9.8->9.9 one unit of PRBC ordered 11/15 s/p transfusion 1 U PRBC on 11/13. Vitamin B12 normal Iron 12, % iron 5%, ferritin 94 Feosol 325mg PO Daily Continue to trend and monitor h/h Hx Valve replacement Dr. Duggan consulted, help appreciated Resume ASA 81 mg PO daily and Plavix 75mg PO daily HTN Lopressor 50mg PO BID Neuropathy gabapentin 100mg PO BID Constipation Milk of Magnesia prn lactulose 20mg PO hs Prophylaxis Pepcid 20mg PO BID Tylenol Florastor Heart healthy diet Will add PO supplements to diet - Glucerna Disposition: CARROL placement pending, insurance issue Case discussed with Dr. Verdin. All management per Dr. Verdin.
--- NOTE | 2016-11-28 11:25 | CP.PCM.PN ---
Subjective - Date & Time of Evaluation Date of Evaluation: 11/28/16 Time of Evaluation: 09:00 - Subjective Subjective: await sensitivity for avycaz cont amikacin needs debridement Objective - Vital Signs/Intake and Output Vital Signs (last 24 hours): Temp Pulse Resp BP Pulse Ox 98.1 F 92 H 20 122/76 97 11/28/16 08:27 11/28/16 08:27 11/28/16 08:27 11/28/16 08:27 11/28/16 08:27 Intake and Output: 11/28/16 11/28/16 06:59 18:59 Intake Total 350 Output Total 600 Balance -250 - Medications Medications: Current Medications Acetaminophen (Tylenol 325mg Tab) 975 mg PO Q8 [facility] Last Admin: 11/28/16 07:04 Dose: Not Given Aspirin (Aspirin Chewable) 81 mg PO DAILY [facility] Last Admin: 11/27/16 09:33 Dose: 81 mg Clopidogrel Bisulfate (Plavix) 75 mg PO DAILY [facility] Last Admin: 11/27/16 09:32 Dose: 75 mg Famotidine (Pepcid) 20 mg PO BID [facility] Last Admin: 11/27/16 18:32 Dose: 20 mg Ferrous Sulfate (Feosol) 325 mg PO DAILY [facility] Last Admin: 11/27/16 09:33 Dose: 325 mg Gabapentin (Neurontin) 100 mg PO BID [facility] Last Admin: 11/27/16 18:32 Dose: 100 mg Ampicillin 2 gm/ Sodium (Chloride) 100 mls @ 50 mls/hr IVPB Q6H [facility] Last Admin: 11/28/16 07:52 Dose: 50 mls/hr Cefepime HCl (Maxipime Iv 2 Gm Premix) 2 gm in 100 mls @ 200 mls/hr IVPB Q8H [facility] Stop: 12/01/16 13:31 Last Admin: 11/28/16 05:53 Dose: 200 mls/hr Amikacin Sulfate 750 mg/ (Dextrose) 103 mls @ 204 mls/hr IVPB Q24H [facility] Last Admin: 11/28/16 04:42 Dose: Not Given Lactulose (Enulose) 20 gm PO HS [facility] Last Admin: 11/27/16 21:37 Dose: 20 gm Metoprolol Tartrate (Lopressor) 50 mg PO BID [facility] Last Admin: 08/14/17 18:32 Dose: 50 mg Saccharomyces Boulardii (Florastor) 250 mg PO BID [facility] Last Admin: 11/27/16 18:33 Dose: 250 mg Vitamin A (Vitamin A & D Oint Ud Foilpak) 1 ea TOP BID [facility] Last Admin: 11/27/16 18:32 Dose: 1 ea - Labs Labs: 11/28/16 04:57 11/28/16 04:57 PT 18.3 SECONDS (9.7-12.2) H 11/15/16 05:53 INR 1.6 11/15/16 05:53 APTT 31 SECONDS (21-34) 11/15/16 05:53 Assessment and Plan (1) Cellulitis Status: Acute (2) Dehydration Status: Acute
[2016-11-28] MEDS: Saccharomyces Boulardi 250 mg Cap PO SCH ×2 (11:26→17:58)
[2016-11-28] MEDS: Vitamins A & D Oint UD Foilpak TOP SCH ×2 (11:27→17:58)
--- NOTE | 2016-11-28 17:05 | CP.PCM.PN ---
Subjective - Date & Time of Evaluation Date of Evaluation: 11/28/16 Time of Evaluation: 07:30 - Subjective Subjective: Vascular Surgery- Dr. Velasquez Pt S&E at bedside this AM. no acute events overnight. Pt still complaining of right lower extremity pain and swelling which is controlled by medication. Dressing change performed today. Denies F/C CP/SOB N/V/D Objective - Vital Signs/Intake and Output Vital Signs (last 24 hours): Temp Pulse Resp BP Pulse Ox 98 F 73 18 143/76 100 11/28/16 15:57 11/28/16 15:57 11/28/16 15:57 11/28/16 15:57 11/28/16 15:57 Intake and Output: 11/28/16 11/28/16 06:59 18:59 Intake Total 350 Output Total 600 Balance -250 - Medications Medications: Current Medications Acetaminophen (Tylenol 325mg Tab) 975 mg PO Q8 [facility] Last Admin: 11/28/16 14:32 Dose: 975 mg Aspirin (Aspirin Chewable) 81 mg PO DAILY [facility] Last Admin: 11/28/16 15:30 Dose: Not Given Clopidogrel Bisulfate (Plavix) 75 mg PO DAILY [facility] Last Admin: 11/28/16 11:26 Dose: 75 mg Famotidine (Pepcid) 20 mg PO BID [facility] Last Admin: 11/28/16 11:26 Dose: 20 mg Ferrous Sulfate (Feosol) 325 mg PO DAILY [facility] Last Admin: 11/28/16 11:26 Dose: 325 mg Gabapentin (Neurontin) 100 mg PO BID [facility] Last Admin: 11/28/16 11:26 Dose: 100 mg Ampicillin 2 gm/ Sodium (Chloride) 100 mls @ 50 mls/hr IVPB Q6H [facility] Last Admin: 11/28/16 07:52 Dose: 50 mls/hr Cefepime HCl (Maxipime Iv 2 Gm Premix) 2 gm in 100 mls @ 200 mls/hr IVPB Q8H [facility] Stop: 12/01/16 13:31 Last Admin: 11/28/16 14:34 Dose: 200 mls/hr Amikacin Sulfate 750 mg/ (Dextrose) 103 mls @ 204 mls/hr IVPB Q24H [facility] Last Admin: 11/28/16 04:42 Dose: Not Given Lactulose (Enulose) 20 gm PO BID [facility] Metoprolol Tartrate (Lopressor) 50 mg PO BID [facility] Last Admin: 11/28/16 14:35 Dose: Not Given Saccharomyces Boulardii (Florastor) 250 mg PO BID [facility] Last Admin: 11/28/16 11:26 Dose: 250 mg Vitamin A (Vitamin A & D Oint Ud Foilpak) 1 ea TOP BID [facility] Last Admin: 11/28/16 11:27 Dose: 1 ea - Labs Labs: 11/28/16 04:57 11/28/16 04:57 PT 18.3 SECONDS (9.7-12.2) H 11/15/16 05:53 INR 1.6 11/15/16 05:53 APTT 31 SECONDS (21-34) 11/15/16 05:53 - Constitutional Appears: Non-toxic - Eye Exam Eye Exam: EOMI - ENT Exam ENT Exam: Mucous Membranes Moist - Respiratory Exam Respiratory Exam: absent: Accessory Muscle Use, Rhonchi, Wheezes - GI/Abdominal Exam GI & Abdominal Exam: Soft. absent: Distended, Firm, Tenderness - Extremities Exam Additional comments: B/L leg wrapping - Neurological Exam Neurological Exam: Alert, Awake, Oriented x3 Assessment and Plan - Assessment and Plan (Free Text) Assessment: 81M s/p b/l leg debridement pod 14 Plan: - q2 dressing changes - continue wound cultures till cultures come back negative - Pain control PRN - Abx per ID - Patient will not be able to obtain skin grafts until this infection clears. - no acute surgical intervention at this time - further recs per Dr. Ron Guardado PGY1
--- NOTE | 2016-11-28 17:34 | PN ---
SUBJECTIVE: The patient is experiencing constipation. He denies any dizziness or chest pain. PHYSICAL EXAMINATION: VITAL SIGNS: Blood pressure 143/76, heart rate 73, temperature 98, respirations 18. HEENT: [place] conjunctivae. CHEST: Clear. HEART: S1 and S2 regular. Grade 4/6 ejection systolic murmur over left sternal border. ABDOMEN: Soft. EXTREMITIES: Dressings applied to bilateral leg cellulitis. LABORATORY DATA: SMA-7 is within normal limit except for BUN of 22, white count is 8.6, hemoglobin and hematocrit 9.9 and 31.7, platelet count is 228. ASSESSMENT: 1. Bilateral leg cellulitis with multiple gram-negative rods. 2. Mechanical mild aortic stenosis status post bioprosthetic aortic valve replacement. 3. Anemia. 4. Constipation. RECOMMENDATIONS: Continue current IV amikacin, IV ampicillin and IV cefepime, continue Plavix 75 mg once a day, ferrous sulfate 625 mg once a day, Pepcid 20 mg twice a day, aspirin 81 mg once a day, increase lactulose to 20 mg twice a day. Tobias Duggan MD
[2016-11-29] MEDS: AMIKACIN IVPB SCH ×2 (03:38→03:42)
[2016-11-29] MEDS: WATER IVPB SCH ×2 (03:38→03:42)
[2016-11-29] MEDS: DEXTROSE 5% IVPB SCH ×2 (03:38→03:42)
[2016-11-29] MEDS: Cefepime IV 2 gm in Dextrose 2 GM/100 ML BAG IVPB SCH (05:11)
[2016-11-29 07:26] LABS: BASO # 0.1 K/uL (0.0-0.2); BASO % 0.9 % (0.0-2.0); EOS # 0.5 K/uL (0.0-0.7); EOS % 4.8 % (0.0-4.0); HEMATOCRIT 33.3 % (35.0-51.0); LYMPH # 2.7 K/uL (1.0-4.3); LYMPH % 28.9 % (20.0-40.0); MEAN CELL VOLUME 71.9 fL (80.0-94.0); MEAN CORPUSCULAR HEMOGLOBIN 22.4 pg (27.0-31.0); MEAN CORPUSCULAR HGB CONC 31.2 g/dL (33.0-37.0); MEAN PLATELET VOLUME 9.3 fL (7.2-11.7); MONO # 1.3 K/uL (0.0-0.8); MONO % 13.3 % (0.0-10.0); WHITE BLOOD COUNT 9.5 K/uL (4.8-10.8)
[2016-11-29 07:33] LABS: CHLORIDE 103 mmol/L (98-107); SODIUM 138 mmol/L (132-148)
[2016-11-29 07:34] LABS: POTASSIUM 4.5 mmol/L (3.6-5.2)
[2016-11-29 07:36] LABS: ALB/GLOB RATIO 0.8 (1.0-2.1); ALKALINE PHOSPHATASE 79 U/L (38-126); AST/SGOT 34 U/L (17-59); BILIRUBIN,TOTAL 0.6 mg/dL (0.2-1.3); BLOOD UREA NITROGEN 18 mg/dL (9-20); CARBON DIOXIDE 28 mmol/L (22-30); GFR AFRICAN-AMERICAN > 60; TOTAL PROTEIN 7.2 g/dL (6.3-8.3)
[2016-11-29 07:37] LABS: ALT/SGPT 37 U/L (21-72); CALCIUM 9.5 mg/dl (8.6-10.4); GLUCOSE,RANDOM 89 mg/dL (75-110)
--- NOTE | 2016-11-29 09:58 | CP.PCM.PN ---
Subjective - Date & Time of Evaluation Date of Evaluation: 11/29/16 Time of Evaluation: 09:00 - Subjective Subjective: PGY3 on medicine Dr. Verdin service: Pt seen and examined at bedside this morning. Pt reports no acute distress and resting comfortably on bed. Pt complains of BLE pain but helped with medication. No acute events overnight and no other complaints. Objective - Vital Signs/Intake and Output Vital Signs (last 24 hours): Temp Pulse Resp BP Pulse Ox 98.3 F 93 H 20 114/69 95 11/29/16 08:39 11/29/16 08:39 11/29/16 08:39 11/29/16 08:39 11/29/16 08:39 Intake and Output: 11/29/16 11/29/16 06:59 18:59 Intake Total 1400 Balance 1400 - Medications Medications: Current Medications Acetaminophen (Tylenol 325mg Tab) 975 mg PO Q8 [facility] Last Admin: 11/29/16 06:09 Dose: Not Given Aspirin (Aspirin Chewable) 81 mg PO DAILY [facility] Last Admin: 11/28/16 15:30 Dose: Not Given Clopidogrel Bisulfate (Plavix) 75 mg PO DAILY [facility] Last Admin: 11/28/16 11:26 Dose: 75 mg Famotidine (Pepcid) 20 mg PO BID [facility] Last Admin: 11/28/16 17:58 Dose: 20 mg Ferrous Sulfate (Feosol) 325 mg PO DAILY [facility] Last Admin: 11/28/16 11:26 Dose: 325 mg Gabapentin (Neurontin) 100 mg PO BID [facility] Last Admin: 11/28/16 17:58 Dose: 100 mg Ampicillin 2 gm/ Sodium (Chloride) 100 mls @ 50 mls/hr IVPB Q6H [facility] Last Admin: 11/29/16 01:58 Dose: 50 mls/hr Cefepime HCl (Maxipime Iv 2 Gm Premix) 2 gm in 100 mls @ 200 mls/hr IVPB Q8H [facility] Stop: 12/01/16 13:31 Last Admin: 11/29/16 05:11 Dose: 200 mls/hr Amikacin Sulfate 750 mg/ (Dextrose) 103 mls @ 204 mls/hr IVPB Q24H [facility] Last Admin: 11/29/16 03:42 Dose: 204 mls/hr Lactulose (Enulose) 20 gm PO BID [facility] Last Admin: 11/28/16 17:58 Dose: 20 gm Metoprolol Tartrate (Lopressor) 50 mg PO BID [facility] Last Admin: 11/28/16 17:59 Dose: 50 mg Saccharomyces Boulardii (Florastor) 250 mg PO BID [facility] Last Admin: 11/28/16 17:58 Dose: 250 mg Vitamin A (Vitamin A & D Oint Ud Foilpak) 1 ea TOP BID [facility] Last Admin: 11/28/16 17:58 Dose: 1 ea - Labs Labs: 11/29/16 07:00 11/29/16 07:08 PT 18.3 SECONDS (9.7-12.2) H 11/15/16 05:53 INR 1.6 11/15/16 05:53 APTT 31 SECONDS (21-34) 11/15/16 05:53 - Constitutional Appears: Non-toxic, No Acute Distress - Head Exam Head Exam: NORMOCEPHALIC - Eye Exam Eye Exam: Normal appearance Pupil Exam: NORMAL ACCOMODATION - Respiratory Exam Respiratory Exam: Clear to Ausculation Bilateral, NORMAL BREATHING PATTERN. absent: Wheezes - Cardiovascular Exam Cardiovascular Exam: REGULAR RHYTHM, +S1, +S2. absent: Gallop - GI/Abdominal Exam GI & Abdominal Exam: Soft, Normal Bowel Sounds. absent: Tenderness - Neurological Exam Neurological Exam: Alert, Awake, Oriented x3 - Psychiatric Exam Psychiatric exam: Normal Mood Assessment and Plan - Assessment and Plan (Free Text) Assessment: Bilateral LE leg ulcers + Pseudomonas Dr. Allison consulted, help appreciated Patient will need abx for at least another 2 weeks. Abx as follows: 1. Amikkacin 750 mg IVPB q24 hours (started on 11/19 and dose adjusted on ) Dose adjusted as per ID rec 2. Ampicillin 50mg IVPB Q6 hours (started 11/19 and stopped 11/29) 3. Cefepime 1gram IVPB Q12 hours (started 11/17) 4. Avycaz 2.5g IV q8H (started 11/29) Florastor 250mg PO BID Follow vascular surgery recommendations - s/p OR 11/15 wound debridement of anterior bilateral lower extremities Wound cultures 11/26- Pseudomonas Wound cultures 11/24- Pseudomonas Wound cultures 11/21 - Pseudomonas, Alisha Albicans Wound cultures 11/17 - Pseudomonas Wound cultures 11/15 - Pseudomonas, E. Faecelia, Klebsiella Patient may need further debridement given continued positive cultures Percocet 1 tab PO Q4 prn moderate pain- pain is well controlled Per surgery, will plan for skin graft once cultures are negative Topical silvadene Wound dress changes by surgery PICC Line in place Amikacin level 6.5 11/21 F/U Amikacin level 11/28 Anemia- stable Stable. one unit of PRBC ordered 11/15 s/p transfusion 1 U PRBC on 11/13. Vitamin B12 normal Iron 12, % iron 5%, ferritin 94 Feosol 325mg PO Daily Continue to trend and monitor h/h Hx Valve replacement Dr. Duggan consulted, help appreciated Resume ASA 81 mg PO daily and Plavix 75mg PO daily HTN Lopressor 50mg PO BID Neuropathy gabapentin 100mg PO BID Constipation Milk of Magnesia prn lactulose 20mg PO hs Prophylaxis Pepcid 20mg PO BID Tylenol Florastor Heart healthy diet Will add PO supplements to diet - Glucerna Disposition: CARROL placement pending, insurance issue Case discussed with Dr. Verdin. All management per Dr. Verdin.
[2016-11-29] MEDS ORDERED: AMIKACIN IVPB SCH (10:15)
[2016-11-29] MEDS ORDERED: DEXTROSE 5% IVPB SCH (10:15)
[2016-11-29] MEDS ORDERED: WATER IVPB SCH (10:15)
[2016-11-29] MEDS: Saccharomyces Boulardi 250 mg Cap PO SCH ×2 (10:40→19:04)
[2016-11-29] MEDS: Vitamins A & D Oint UD Foilpak TOP SCH ×2 (10:40→19:06)
--- NOTE | 2016-11-29 12:58 | PN ---
SUBJECTIVE: The patient has no complaints of dizziness or weakness. No palpitations. PHYSICAL EXAMINATION: VITAL SIGNS: Blood pressure 114/69, heart rate 93, temperature 98.3, respirations 20. HEENT: Pale conjunctivae. CHEST: Clear. HEART: S1 and S2 regular. Grade 4/6 ejection systolic murmur over left sternal border. EXTREMITIES: Dressings applied to bilateral leg cellulitis. LABORATORY DATA: Hemoglobin and hematocrit 10.4 and 33.3, white count and platelet count are within normal limits. Today's SMA-7 is entirely within normal limits. ASSESSMENT: 1. Bilateral leg ulcer status post debridement. 2. Mild aortic stenosis status post bioprosthetic aortic valve replacement. 3. Anemia. RECOMMENDATIONS: Continue current Plavix 75 mg once a day, aspirin 81 mg once a day, Feosol one tablet once a day, Lopressor 50 mg twice a day. Continue IV amikacin and IV ceftazidime. Start Lovenox at 40 mg subcutaneously daily. The patient was advised to allow for subcutaneous Lovenox injection. Tobias Duggan MD
[2016-11-29] MEDS: Enoxaparin 40 mg Syringe SC SCH (13:24)
--- NOTE | 2016-11-29 18:33 | CP.PCM.PN ---
Subjective - Date & Time of Evaluation Date of Evaluation: 11/29/16 Time of Evaluation: 08:00 - Subjective Subjective: added avycaz requested sensitivity report from lab no response after 4 days cont amikacin surgical re-eval for debridement Objective - Vital Signs/Intake and Output Vital Signs (last 24 hours): Temp Pulse Resp BP Pulse Ox 97.8 F 92 H 20 166/83 H 96 11/29/16 15:56 11/29/16 15:56 11/29/16 15:56 11/29/16 15:56 11/29/16 15:56 Intake and Output: 11/29/16 11/29/16 06:59 18:59 Intake Total 1400 680 Balance 1400 680 - Medications Medications: Current Medications Acetaminophen (Tylenol 325mg Tab) 975 mg PO Q8 PRN PRN Reason: fever or pain Aspirin (Aspirin Chewable) 81 mg PO DAILY [facility] Last Admin: 11/29/16 10:40 Dose: 81 mg Clopidogrel Bisulfate (Plavix) 75 mg PO DAILY [facility] Last Admin: 11/29/16 10:40 Dose: 75 mg Docusate Sodium (Colace) 100 mg PO TID [facility] Last Admin: 11/29/16 14:30 Dose: Not Given Enoxaparin Sodium (Lovenox) 40 mg SC DAILY [facility] Last Admin: 11/29/16 13:24 Dose: 40 mg Famotidine (Pepcid) 20 mg PO BID [facility] Last Admin: 11/29/16 10:40 Dose: 20 mg Ferrous Sulfate (Feosol) 325 mg PO DAILY [facility] Last Admin: 11/29/16 10:40 Dose: 325 mg Gabapentin (Neurontin) 100 mg PO BID [facility] Last Admin: 11/29/16 10:40 Dose: 100 mg Amikacin Sulfate 750 mg/ (Dextrose) 103 mls @ 204 mls/hr IVPB Q24H [facility] Ceftazidime/Avibactam 2.5 gm/ (Sodium Chloride) 100 mls @ 50 mls/hr IV Q8H [facility] Last Admin: 11/29/16 13:24 Dose: 50 mls/hr Lactulose (Enulose) 20 gm PO BID [facility] Last Admin: 11/29/16 10:40 Dose: 20 gm Metoprolol Tartrate (Lopressor) 50 mg PO BID [facility] Last Admin: 11/29/16 10:40 Dose: 50 mg Saccharomyces Boulardii (Florastor) 250 mg PO BID [facility] Last Admin: 11/29/16 10:40 Dose: 250 mg Vitamin A (Vitamin A & D Oint Ud Foilpak) 1 ea TOP BID [facility] Last Admin: 11/29/16 10:40 Dose: 1 ea - Labs Labs: 11/29/16 07:00 11/29/16 07:08 PT 18.3 SECONDS (9.7-12.2) H 11/15/16 05:53 INR 1.6 11/15/16 05:53 APTT 31 SECONDS (21-34) 11/15/16 05:53 Assessment and Plan (1) Cellulitis Status: Acute (2) Dehydration Status: Acute
[2016-11-30] MEDS: DEXTROSE 5% IVPB SCH (04:19)
[2016-11-30] MEDS: AMIKACIN IVPB SCH (04:19)
[2016-11-30] MEDS: WATER IVPB SCH (04:19)
[2016-11-30 08:42] LABS: BASO # 0.2 K/uL (0.0-0.2); BASO % 1.6 % (0.0-2.0); EOS # 0.5 K/uL (0.0-0.7); EOS % 4.9 % (0.0-4.0); HEMATOCRIT 35.5 % (35.0-51.0); LYMPH # 2.6 K/uL (1.0-4.3); MEAN CELL VOLUME 71.9 fL (80.0-94.0); MEAN CORPUSCULAR HEMOGLOBIN 22.3 pg (27.0-31.0); MEAN PLATELET VOLUME 9.3 fL (7.2-11.7); MONO # 1.3 K/uL (0.0-0.8); RED CELL DISTRIBUTION WIDTH 27.1 % (11.5-14.5); WHITE BLOOD COUNT 9.6 K/uL (4.8-10.8)
[2016-11-30 08:54] LABS: CHLORIDE 102 mmol/L (98-107); SODIUM 140 mmol/L (132-148)
[2016-11-30 08:55] LABS: POTASSIUM 4.3 mmol/L (3.6-5.2)
[2016-11-30 08:57] LABS: ALB/GLOB RATIO 0.8 (1.0-2.1); ALKALINE PHOSPHATASE 90 U/L (38-126); ALT/SGPT 36 U/L (21-72); AST/SGOT 33 U/L (17-59); BILIRUBIN,TOTAL 0.6 mg/dL (0.2-1.3); BLOOD UREA NITROGEN 20 mg/dL (9-20); CARBON DIOXIDE 28 mmol/L (22-30); GFR AFRICAN-AMERICAN > 60; GLUCOSE,RANDOM 101 mg/dL (75-110); TOTAL PROTEIN 7.8 g/dL (6.3-8.3)
[2016-11-30 08:58] LABS: CALCIUM 9.7 mg/dl (8.6-10.4)
--- NOTE | 2016-11-30 09:07 | CP.PCM.PN ---
Subjective - Date & Time of Evaluation Date of Evaluation: 11/30/16 Time of Evaluation: 09:05 - Subjective Subjective: Medicine Note for Dr. Verdin's Service Pt seen and examined at bedside. He is aware that ID has changed his medications and is questioning whether or not the new medications will improve his condition. He continues to have pain b/l in his lower extremities. He denies any acute symptoms. ROS were discussed and patient denied any acute changes. Objective - Vital Signs/Intake and Output Vital Signs (last 24 hours): Temp Pulse Resp BP Pulse Ox 98.0 F 69 20 132/74 100 11/30/16 08:54 11/30/16 08:54 11/30/16 08:54 11/30/16 08:54 11/30/16 08:54 - Medications Medications: Current Medications Acetaminophen (Tylenol 325mg Tab) 975 mg PO Q8 PRN PRN Reason: fever or pain Last Admin: 11/30/16 02:00 Dose: 975 mg Aspirin (Aspirin Chewable) 81 mg PO DAILY [facility] Last Admin: 11/29/16 10:40 Dose: 81 mg Clopidogrel Bisulfate (Plavix) 75 mg PO DAILY [facility] Last Admin: 11/29/16 10:40 Dose: 75 mg Docusate Sodium (Colace) 100 mg PO TID [facility] Last Admin: 11/29/16 19:05 Dose: Not Given Enoxaparin Sodium (Lovenox) 40 mg SC DAILY [facility] Last Admin: 11/29/16 13:24 Dose: 40 mg Famotidine (Pepcid) 20 mg PO BID [facility] Last Admin: 11/29/16 19:04 Dose: 20 mg Ferrous Sulfate (Feosol) 325 mg PO DAILY [facility] Last Admin: 11/29/16 10:40 Dose: 325 mg Gabapentin (Neurontin) 100 mg PO BID [facility] Last Admin: 11/29/16 19:04 Dose: 100 mg Amikacin Sulfate 750 mg/ (Dextrose) 103 mls @ 204 mls/hr IVPB Q24H [facility] Last Admin: 11/30/16 04:19 Dose: 204 mls/hr Ceftazidime/Avibactam 2.5 gm/ (Sodium Chloride) 100 mls @ 50 mls/hr IV Q8H [facility] Last Admin: 11/30/16 06:00 Dose: 50 mls/hr Lactulose (Enulose) 20 gm PO BID [facility] Last Admin: 11/29/16 19:05 Dose: Not Given Metoprolol Tartrate (Lopressor) 50 mg PO BID [facility] Last Admin: 11/29/16 19:04 Dose: 50 mg Saccharomyces Boulardii (Florastor) 250 mg PO BID [facility] Last Admin: 11/29/16 19:04 Dose: 250 mg Vitamin A (Vitamin A & D Oint Ud Foilpak) 1 ea TOP BID [facility] Last Admin: 11/29/16 19:06 Dose: 1 ea - Labs Labs: 11/30/16 08:40 11/30/16 08:40 PT 18.3 SECONDS (9.7-12.2) H 11/15/16 05:53 INR 1.6 11/15/16 05:53 APTT 31 SECONDS (21-34) 11/15/16 05:53 - Constitutional Appears: No Acute Distress - Head Exam Head Exam: ATRAUMATIC, NORMAL INSPECTION - Eye Exam Eye Exam: EOMI, Normal appearance - ENT Exam ENT Exam: Mucous Membranes Moist - Respiratory Exam Respiratory Exam: Clear to Ausculation Bilateral, NORMAL BREATHING PATTERN - Cardiovascular Exam Cardiovascular Exam: +S1, +S2, Murmur (07/20) - GI/Abdominal Exam GI & Abdominal Exam: Soft. absent: Distended, Tenderness - Extremities Exam Additional comments: wound dressings c/d/i - Neurological Exam Neurological Exam: Alert, Awake, Oriented x3 Assessment and Plan - Assessment and Plan (Free Text) Plan: 1. Bilateral Leg ulcers - 11/26 bilateral wound cultures: Pseudomonas aeruginosa, amikacin sensitive - Dr. Allison consulted: Continue antibiotics: Amikacin 750mg IV daily (11/19) Avycaz 2.5gr IV Q8 (added on 11/29) - Continue Florastor 250 mg PO BID - Acetaminophen 975 mg PO Q8 prn for pain - Continue topical Vitamin A for wound. f/u with surgery for Q2 dressing changes 2. Anemia - Hgb 11.0 increased from 10.4 yesterday - continue Feosol 325mg PO daily - continue to monitor CBC daily 3. Mild aortic stenosis, s/p bioprosthetic aortic valve replacement - 11/15 EKG: sinus rhythm with premature atrial complexes, 79 bpm, left atrial enlargement, normal intervals. - Dr. Duggan consulted: continue ASA 81 mg PO daily, continue Plavix 75 mg PO daily, continue Lovenox 40 mg SC daily (added on 11/29), 4. HTN - continue Lopressor 50 mg PO BID. 5. Neuropathy - continue Neurontin 100mg PO BID 6. Constipation - continue Colace 100 mg PO TID - continue Lactulose 20 gr PO BID 7. Prophylaxis - Pepcid 20mg PO BID - Florastor 250 mg PO BID Patient continues to have persistent infection and IV abx have been adjusted as detailed above by ID; with consideration for sensitivities. Will continue to monitor progression. Plan for discharge when clinically improving. Case discussed with Dr. Verdin. All management as per Dr. Verdin.
[2016-11-30] MEDS: Enoxaparin 40 mg Syringe SC SCH (10:54)
[2016-11-30] MEDS: Vitamins A & D Oint UD Foilpak TOP SCH ×2 (10:54→17:43)
[2016-11-30] MEDS: Saccharomyces Boulardi 250 mg Cap PO SCH ×2 (10:54→17:44)
--- NOTE | 2016-11-30 11:08 | CP.PCM.PN ---
Subjective - Date & Time of Evaluation Date of Evaluation: 11/30/16 Time of Evaluation: 09:30 - Subjective Subjective: General Surgery Note Patient seen and examined at bedside in no acute distress. Patient has no acute issues overnight Patient denies nausea, vomiting, fever, chills, chest pain and SOB. Patient had no new complaints. Objective - Vital Signs/Intake and Output Vital Signs (last 24 hours): Temp Pulse Resp BP Pulse Ox 98.0 F 69 20 132/74 100 11/30/16 08:54 11/30/16 08:54 11/30/16 08:54 11/30/16 08:54 11/30/16 08:54 - Medications Medications: Current Medications Acetaminophen (Tylenol 325mg Tab) 975 mg PO Q8 PRN PRN Reason: fever or pain Last Admin: 11/30/16 02:00 Dose: 975 mg Aspirin (Aspirin Chewable) 81 mg PO DAILY [facility] Last Admin: 11/30/16 10:54 Dose: 81 mg Clopidogrel Bisulfate (Plavix) 75 mg PO DAILY [facility] Last Admin: 11/30/16 10:54 Dose: 75 mg Docusate Sodium (Colace) 100 mg PO TID [facility] Last Admin: 11/30/16 10:54 Dose: 100 mg Enoxaparin Sodium (Lovenox) 40 mg SC DAILY [facility] Last Admin: 11/30/16 10:54 Dose: 40 mg Famotidine (Pepcid) 20 mg PO BID [facility] Last Admin: 11/30/16 10:54 Dose: 20 mg Ferrous Sulfate (Feosol) 325 mg PO DAILY [facility] Last Admin: 11/30/16 10:54 Dose: 325 mg Gabapentin (Neurontin) 100 mg PO BID [facility] Last Admin: 11/30/16 10:54 Dose: 100 mg Amikacin Sulfate 750 mg/ (Dextrose) 103 mls @ 204 mls/hr IVPB Q24H [facility] Last Admin: 11/30/16 04:19 Dose: 204 mls/hr Ceftazidime/Avibactam 2.5 gm/ (Sodium Chloride) 100 mls @ 50 mls/hr IV Q8H [facility] Last Admin: 11/30/16 06:00 Dose: 50 mls/hr Lactulose (Enulose) 20 gm PO BID [facility] Last Admin: 11/30/16 10:54 Dose: 20 gm Metoprolol Tartrate (Lopressor) 50 mg PO BID [facility] Last Admin: 11/30/16 10:54 Dose: 50 mg Saccharomyces Boulardii (Florastor) 250 mg PO BID [facility] Last Admin: 11/30/16 10:54 Dose: 250 mg Vitamin A (Vitamin A & D Oint Ud Foilpak) 1 ea TOP BID [facility] Last Admin: 11/30/16 10:54 Dose: 1 ea - Labs Labs: 11/30/16 08:40 11/30/16 08:40 PT 18.3 SECONDS (9.7-12.2) H 11/15/16 05:53 INR 1.6 11/15/16 05:53 APTT 31 SECONDS (21-34) 11/15/16 05:53 - Constitutional Appears: Well, No Acute Distress - Head Exam Head Exam: ATRAUMATIC, NORMAL INSPECTION - Eye Exam Eye Exam: EOMI, Normal appearance - ENT Exam ENT Exam: Mucous Membranes Moist, Normal Exam - Respiratory Exam Respiratory Exam: Clear to Ausculation Bilateral, NORMAL BREATHING PATTERN - Cardiovascular Exam Cardiovascular Exam: +S1, +S2, Murmur Additional comments: Systolic Murmur - GI/Abdominal Exam GI & Abdominal Exam: Soft, Normal Bowel Sounds - Extremities Exam Additional comments: B/L leg wrapping intact, dry and clean - Neurological Exam Neurological Exam: Alert, Awake, Oriented x3 Assessment and Plan - Assessment and Plan (Free Text) Assessment: 81M s/p b/l leg debridement POD 15 Plan: -Continue q2 dressing changes with betadine -Suggest topical treatment such as betadine, sulfur mylan or dakin -Continue antibiotics regimen as per ID recommendation -Continue wound cultures till cultures come back negative -Pain control PRN -Patient will not be able to obtain skin grafts until this infection clears. -No acute surgical intervention at this time -Further recs per Dr. Ron Mancera, PGY-1
--- NOTE | 2016-11-30 18:21 | CP.PCM.PN ---
Subjective - Date & Time of Evaluation Date of Evaluation: 11/30/16 Time of Evaluation: 08:00 - Subjective Subjective: no fever or leukocytosis on avycaz/ amikacin amikacin level done but may not be trough ? will repeat levels may need further debridement as wounds persist with pus discussed with pt prognosis guarded Objective - Vital Signs/Intake and Output Vital Signs (last 24 hours): Temp Pulse Resp BP Pulse Ox 98.0 F 83 20 131/67 99 11/30/16 16:00 11/30/16 16:00 11/30/16 16:00 11/30/16 16:00 11/30/16 16:00 Intake and Output: 11/30/16 11/30/16 06:59 18:59 Intake Total 760 Balance 760 - Medications Medications: Current Medications Acetaminophen (Tylenol 325mg Tab) 975 mg PO Q8 PRN PRN Reason: fever or pain Last Admin: 11/30/16 17:41 Dose: 975 mg Aspirin (Aspirin Chewable) 81 mg PO DAILY [facility] Last Admin: 11/30/16 10:54 Dose: 81 mg Clopidogrel Bisulfate (Plavix) 75 mg PO DAILY [facility] Last Admin: 11/30/16 10:54 Dose: 75 mg Docusate Sodium (Colace) 100 mg PO TID [facility] Last Admin: 11/30/16 17:43 Dose: 100 mg Enoxaparin Sodium (Lovenox) 40 mg SC DAILY [facility] Last Admin: 11/30/16 10:54 Dose: 40 mg Famotidine (Pepcid) 20 mg PO BID [facility] Last Admin: 11/30/16 17:43 Dose: 20 mg Ferrous Sulfate (Feosol) 325 mg PO DAILY [facility] Last Admin: 11/30/16 10:54 Dose: 325 mg Gabapentin (Neurontin) 100 mg PO BID [facility] Last Admin: 11/30/16 17:43 Dose: 100 mg Amikacin Sulfate 750 mg/ (Dextrose) 103 mls @ 204 mls/hr IVPB Q24H [facility] Last Admin: 11/30/16 04:19 Dose: 204 mls/hr Ceftazidime/Avibactam 2.5 gm/ (Sodium Chloride) 100 mls @ 50 mls/hr IV Q8H [facility] Last Admin: 11/30/16 13:40 Dose: 50 mls/hr Lactulose (Enulose) 20 gm PO BID [facility] Last Admin: 11/30/16 17:46 Dose: Not Given Metoprolol Tartrate (Lopressor) 50 mg PO BID [facility] Last Admin: 11/30/16 17:48 Dose: 50 mg Saccharomyces Boulardii (Florastor) 250 mg PO BID [facility] Last Admin: 11/30/16 17:44 Dose: 250 mg Vitamin A (Vitamin A & D Oint Ud Foilpak) 1 ea TOP BID [facility] Last Admin: 11/30/16 17:43 Dose: 1 ea - Labs Labs: 11/30/16 08:40 11/30/16 08:40 PT 18.3 SECONDS (9.7-12.2) H 11/15/16 05:53 INR 1.6 11/15/16 05:53 APTT 31 SECONDS (21-34) 11/15/16 05:53 Assessment and Plan (1) Cellulitis Status: Acute (2) Dehydration Status: Acute
--- NOTE | 2016-11-30 23:09 | PN ---
DATE: SUBJECTIVE: The patient denies any dizziness. He ambulated and received his subcutaneous Lovenox. PHYSICAL EXAMINATION: VITAL SIGNS: Blood pressure /67, heart rate 83, temperature 98 and respirations 20. HEENT: Pale conjunctivae. CHEST: Clear. HEART: S1 and S2 regular. Grade IV/ ejection systolic murmur over left sternal border. EXTREMITIES: Dressings applied to both lower extremities. LABORATORY DATA: Showed hemoglobin and hematocrit 11 and 35.5, white count and platelet count are within normal limits. Today's SMA-7 is within normal limits. Wound cultures are persistently positive for pseudomonas. ASSESSMENT: 1. Clinically mild aortic stenosis. 2. Status post aortic valve replacement. 3. Mild anemia. 4. Bilateral leg cellulitis. RECOMMENDATIONS: Continue current IV amikacin and IV ceftazidime. Continue aspirin and Plavix and subcutaneous Lovenox therapy. Continue Lopressor 50 mg twice a day. I did review the infectious disease specialist, Dr. Allison's note today. Tobias Duggan MD
[2016-12-01] MEDS: AMIKACIN IVPB SCH (03:32)
[2016-12-01] MEDS: DEXTROSE 5% IVPB SCH (03:32)
[2016-12-01] MEDS: WATER IVPB SCH (03:32)
[2016-12-01 07:15] LABS: BASO # 0.2 K/uL (0.0-0.2); BASO % 1.8 % (0.0-2.0); EOS # 0.4 K/uL (0.0-0.7); EOS % 4.3 % (0.0-4.0); HEMATOCRIT 31.9 % (35.0-51.0); LYMPH # 2.3 K/uL (1.0-4.3); LYMPH % 26.5 % (20.0-40.0); MEAN CELL VOLUME 72.5 fL (80.0-94.0); MEAN CORPUSCULAR HEMOGLOBIN 22.3 pg (27.0-31.0); MEAN CORPUSCULAR HGB CONC 30.8 g/dL (33.0-37.0); MEAN PLATELET VOLUME 9.4 fL (7.2-11.7); MONO # 1.2 K/uL (0.0-0.8); MONO % 14.1 % (0.0-10.0); RED CELL DISTRIBUTION WIDTH 27.4 % (11.5-14.5); WHITE BLOOD COUNT 8.8 K/uL (4.8-10.8)
[2016-12-01 07:25] LABS: CHLORIDE 102 mmol/L (98-107); SODIUM 139 mmol/L (132-148)
[2016-12-01 07:26] LABS: POTASSIUM 4.3 mmol/L (3.6-5.2)
[2016-12-01 07:28] LABS: ALB/GLOB RATIO 0.8 (1.0-2.1); ALKALINE PHOSPHATASE 77 U/L (38-126); ALT/SGPT 35 U/L (21-72); AST/SGOT 28 U/L (17-59); BILIRUBIN,TOTAL 0.6 mg/dL (0.2-1.3); BLOOD UREA NITROGEN 20 mg/dL (9-20); CARBON DIOXIDE 28 mmol/L (22-30); GFR AFRICAN-AMERICAN > 60; GLUCOSE,RANDOM 81 mg/dL (75-110); TOTAL PROTEIN 6.9 g/dL (6.3-8.3)
[2016-12-01 07:29] LABS: CALCIUM 9.2 mg/dl (8.6-10.4)
[2016-12-01] MEDS: Enoxaparin 40 mg Syringe SC SCH (10:30)
[2016-12-01] MEDS: Saccharomyces Boulardi 250 mg Cap PO SCH ×2 (10:30→17:28)
[2016-12-01] MEDS: Vitamins A & D Oint UD Foilpak TOP SCH ×2 (10:30→17:28)
--- NOTE | 2016-12-01 13:58 | CP.PCM.PN ---
Subjective - Date & Time of Evaluation Date of Evaluation: 12/01/16 Time of Evaluation: 07:10 - Subjective Subjective: Medicine Note- Dr. Verdin's service Patient was seen and examined at bedside. Patient reports that his legs both still hurt a lot. He said he had to loosen the jaspal bandage a bit because he felt it was too tight. Otherwise he has no acute complaints. No events overnight , per nursing. Objective - Vital Signs/Intake and Output Vital Signs (last 24 hours): Temp Pulse Resp BP Pulse Ox 97.9 F 85 20 110/75 98 12/01/16 08:54 12/01/16 08:54 12/01/16 08:54 12/01/16 08:54 12/01/16 08:54 Intake and Output: 12/01/16 12/01/16 06:59 18:59 Intake Total 550 Balance 550 - Medications Medications: Current Medications Acetaminophen (Tylenol 325mg Tab) 975 mg PO Q8 PRN PRN Reason: fever or pain Last Admin: 12/01/16 12:24 Dose: 975 mg Aspirin (Aspirin Chewable) 81 mg PO DAILY [facility] Last Admin: 12/01/16 10:30 Dose: 81 mg Clopidogrel Bisulfate (Plavix) 75 mg PO DAILY [facility] Last Admin: 12/01/16 10:30 Dose: 75 mg Docusate Sodium (Colace) 100 mg PO TID [facility] Last Admin: 12/01/16 12:17 Dose: 100 mg Enoxaparin Sodium (Lovenox) 40 mg SC DAILY [facility] Last Admin: 12/01/16 10:30 Dose: 40 mg Famotidine (Pepcid) 20 mg PO BID [facility] Last Admin: 12/01/16 10:30 Dose: 20 mg Ferrous Sulfate (Feosol) 325 mg PO DAILY [facility] Last Admin: 12/01/16 10:30 Dose: 325 mg Gabapentin (Neurontin) 100 mg PO BID [facility] Last Admin: 12/01/16 10:30 Dose: 100 mg Amikacin Sulfate 750 mg/ (Dextrose) 103 mls @ 204 mls/hr IVPB Q24H [facility] Last Admin: 12/01/16 03:32 Dose: 204 mls/hr Ceftazidime/Avibactam 2.5 gm/ (Sodium Chloride) 100 mls @ 50 mls/hr IV Q8H [facility] Last Admin: 12/01/16 12:17 Dose: 50 mls/hr Lactulose (Enulose) 20 gm PO BID [facility] Last Admin: 12/01/16 12:17 Dose: 20 gm Metoprolol Tartrate (Lopressor) 50 mg PO BID [facility] Last Admin: 12/01/16 10:30 Dose: 50 mg Saccharomyces Boulardii (Florastor) 250 mg PO BID [facility] Last Admin: 12/01/16 10:30 Dose: 250 mg Vitamin A (Vitamin A & D Oint Ud Foilpak) 1 ea TOP BID [facility] Last Admin: 12/01/16 10:30 Dose: 1 ea - Labs Labs: 12/01/16 06:57 12/01/16 06:57 PT 18.3 SECONDS (9.7-12.2) H 11/15/16 05:53 INR 1.6 11/15/16 05:53 APTT 31 SECONDS (21-34) 11/15/16 05:53 - Constitutional Appears: Non-toxic, No Acute Distress - Head Exam Head Exam: ATRAUMATIC, NORMAL INSPECTION, NORMOCEPHALIC - Eye Exam Pupil Exam: NORMAL ACCOMODATION, PERRL - ENT Exam ENT Exam: Mucous Membranes Moist - Respiratory Exam Respiratory Exam: Clear to Ausculation Bilateral, NORMAL BREATHING PATTERN. absent: Prolonged Expiratory Phase, Rales, Rhonchi, Wheezes - Cardiovascular Exam Cardiovascular Exam: REGULAR RHYTHM, +S1, +S2 - GI/Abdominal Exam GI & Abdominal Exam: Soft, Normal Bowel Sounds. absent: Tenderness, Diminished Bowel Sounds, Hernia, Hypoactive Bowel Sounds - Extremities Exam Extremities Exam: Normal Capillary Refill Additional comments: bilateral LE dressings remain dry and clean. jaspal bandage applied - Neurological Exam Neurological Exam: Alert, Awake, Oriented x3 - Psychiatric Exam Psychiatric exam: Normal Affect, Normal Mood - Skin Skin Exam: Dry, Intact, Normal Color, Warm Assessment and Plan - Assessment and Plan (Free Text) Assessment: 1. Bilateral Leg ulcers - 11/26 bilateral wound cultures: Pseudomonas aeruginosa, amikacin sensitive - Dr. Allison consulted: Continue antibiotics: Amikacin 750mg IV daily (11/19) Avycaz 2.5gr IV Q8 (added on 11/29) - Continue Florastor 250 mg PO BID - Acetaminophen 975 mg PO Q8 prn for pain - Continue topical Vitamin A for wound. f/u with surgery for Q2 dressing changes -Started on Percocet 5/325 Q6h for pain 2. Anemia - Hgb 11.0 increased from 10.4 yesterday - continue Feosol 325mg PO daily - continue to monitor CBC daily 3. Mild aortic stenosis, s/p bioprosthetic aortic valve replacement - 11/15 EKG: sinus rhythm with premature atrial complexes, 79 bpm, left atrial enlargement, normal intervals. - Dr. Duggan consulted: continue ASA 81 mg PO daily, continue Plavix 75 mg PO daily, continue Lovenox 40 mg SC daily (added on 11/29), 4. HTN - continue Lopressor 50 mg PO BID. 5. Neuropathy - continue Neurontin 100mg PO BID 6. Constipation - continue Colace 100 mg PO TID - continue Lactulose 20 gr PO BID 7. Prophylaxis - Pepcid 20mg PO BID - Florastor 250 mg PO BID Patient continues to have persistent infection and IV abx have been adjusted as detailed above by ID; with consideration for sensitivities. Will continue to monitor progression. Plan for discharge when clinically improving. Case discussed with Dr. Verdin. All management as per Dr. Verdin.
--- NOTE | 2016-12-01 16:28 | PN ---
SUBJECTIVE: The patient denies any dizziness or chest pain. He complaints of bilateral leg pain. PHYSICAL EXAMINATION: VITAL SIGNS: Blood pressure 110/75, heart rate 85, temperature 97.9, respirations 20. HEENT: Pale conjunctivae. CHEST: Clear. HEART: S1, S2, regular. Grade 4/6 ejection systolic murmur over left sternal border. EXTREMITIES: Dressing is applied to both lower extremities. LABORATORY DATA: Showed hemoglobin and hematocrit 9.8 and 31.9. White count and platelet count are within normal limits. Today's SMA-7 is entirely within normal limit. ASSESSMENT: 1. Bilateral leg cellulitis. 2. Mild aortic stenosis. 3. Status post bioprosthetic aortic valve replacement. 4. Severe insufficiency. 5. Anemia. 6. Systemic hypertension. RECOMMENDATIONS: Continue aspirin, Plavix and subcutaneous H twice a day. Continue IV amikacin as well as IV ceftazidime. Tobias Duggan MD
--- NOTE | 2016-12-01 18:47 | CP.PCM.PN ---
Subjective - Date & Time of Evaluation Date of Evaluation: 12/01/16 Time of Evaluation: 08:00 - Subjective Subjective: iv rx adjusted wound care in progress Objective - Vital Signs/Intake and Output Vital Signs (last 24 hours): Temp Pulse Resp BP Pulse Ox 98.4 F 70 20 133/70 99 12/01/16 15:40 12/01/16 15:40 12/01/16 15:40 12/01/16 15:40 12/01/16 15:40 Intake and Output: 12/01/16 12/01/16 06:59 18:59 Intake Total 550 Balance 550 - Medications Medications: Current Medications Acetaminophen (Tylenol 325mg Tab) 975 mg PO Q8 PRN PRN Reason: fever or pain Last Admin: 12/01/16 12:24 Dose: 975 mg Aspirin (Aspirin Chewable) 81 mg PO DAILY [facility] Last Admin: 12/01/16 10:30 Dose: 81 mg Clopidogrel Bisulfate (Plavix) 75 mg PO DAILY [facility] Last Admin: 12/01/16 10:30 Dose: 75 mg Docusate Sodium (Colace) 100 mg PO TID [facility] Last Admin: 12/01/16 17:28 Dose: 100 mg Enoxaparin Sodium (Lovenox) 40 mg SC DAILY [facility] Last Admin: 12/01/16 10:30 Dose: 40 mg Famotidine (Pepcid) 20 mg PO BID [facility] Last Admin: 12/01/16 17:28 Dose: 20 mg Ferrous Sulfate (Feosol) 325 mg PO DAILY [facility] Last Admin: 12/01/16 10:30 Dose: 325 mg Gabapentin (Neurontin) 100 mg PO BID [facility] Last Admin: 12/01/16 17:32 Dose: 100 mg Ceftazidime/Avibactam 2.5 gm/ (Sodium Chloride) 100 mls @ 50 mls/hr IV Q8H [facility] Last Admin: 12/01/16 12:17 Dose: 50 mls/hr Amikacin Sulfate 500 mg/ (Dextrose) 102 mls @ 204 mls/hr IVPB Q12H [facility] Lactulose (Enulose) 20 gm PO BID [facility] Last Admin: 12/01/16 17:30 Dose: Not Given Metoprolol Tartrate (Lopressor) 50 mg PO BID [facility] Last Admin: 12/01/16 17:32 Dose: 50 mg Oxycodone/Acetaminophen (Percocet 5/325 Mg Tab) 1 tab PO Q6H PRN PRN Reason: Pain, severe (8-10) Stop: 12/04/16 13:57 Saccharomyces Boulardii (Florastor) 250 mg PO BID [facility] Last Admin: 12/01/16 17:28 Dose: 250 mg Vitamin A (Vitamin A & D Oint Ud Foilpak) 1 ea TOP BID [facility] Last Admin: 12/01/16 17:28 Dose: 1 ea - Labs Labs: 12/01/16 06:57 12/01/16 06:57 PT 18.3 SECONDS (9.7-12.2) H 11/15/16 05:53 INR 1.6 11/15/16 05:53 APTT 31 SECONDS (21-34) 11/15/16 05:53 - Constitutional Appears: Non-toxic, Chronically Ill - Head Exam Head Exam: NORMOCEPHALIC - Eye Exam Eye Exam: PERRL - ENT Exam ENT Exam: Mucous Membranes Dry, Normal External Ear Exam - Neck Exam Neck Exam: absent: Lymphadenopathy - Respiratory Exam Respiratory Exam: Decreased Breath Sounds Assessment and Plan (1) Cellulitis Status: Acute (2) Dehydration Status: Acute
[2016-12-01] MEDS: Amikacin 500 MG in Dextrose 5% In Water 100 ML IVPB SCH (20:52)
[2016-12-02] MEDS: Oxycodone/Acetaminophen 5/325 mg Tab PO PRN ×3 (01:32→18:54)
[2016-12-02 06:42] LABS: BASO # 0.1 K/uL (0.0-0.2); EOS # 0.4 K/uL (0.0-0.7); EOS % 4.7 % (0.0-4.0); HEMATOCRIT 33.5 % (35.0-51.0); LYMPH % 25.1 % (20.0-40.0); MEAN CELL VOLUME 72.4 fL (80.0-94.0); MEAN CORPUSCULAR HEMOGLOBIN 22.4 pg (27.0-31.0); MEAN CORPUSCULAR HGB CONC 30.9 g/dL (33.0-37.0); MEAN PLATELET VOLUME 9.4 fL (7.2-11.7); MONO # 1.2 K/uL (0.0-0.8); MONO % 15.2 % (0.0-10.0); RED CELL DISTRIBUTION WIDTH 27.6 % (11.5-14.5)
[2016-12-02 06:55] LABS: CHLORIDE 102 mmol/L (98-107)
[2016-12-02 06:56] LABS: POTASSIUM 4.5 mmol/L (3.6-5.2); SODIUM 139 mmol/L (132-148)
[2016-12-02 06:59] LABS: ALB/GLOB RATIO 0.8 (1.0-2.1); ALKALINE PHOSPHATASE 86 U/L (38-126); ALT/SGPT 33 U/L (21-72); AST/SGOT 31 U/L (17-59); BILIRUBIN,TOTAL 0.6 mg/dL (0.2-1.3); BLOOD UREA NITROGEN 25 mg/dL (9-20); CARBON DIOXIDE 28 mmol/L (22-30); GFR AFRICAN-AMERICAN > 60; GLUCOSE,RANDOM 91 mg/dL (75-110); TOTAL PROTEIN 7.4 g/dL (6.3-8.3)
[2016-12-02 07:00] LABS: CALCIUM 9.6 mg/dl (8.6-10.4)
[2016-12-02] MEDS: Amikacin 500 MG in Dextrose 5% In Water 100 ML IVPB SCH ×2 (07:58→20:34)
[2016-12-02] MEDS: Vitamins A & D Oint UD Foilpak TOP SCH ×2 (10:12→18:49)
[2016-12-02] MEDS: Enoxaparin 40 mg Syringe SC SCH (10:12)
[2016-12-02] MEDS: Saccharomyces Boulardi 250 mg Cap PO SCH ×2 (10:13→18:50)
--- NOTE | 2016-12-02 23:24 | PN ---
SUBJECTIVE: The patient denies any chest pain or shortness of breath. PHYSICAL EXAMINATION: VITAL SIGNS: Blood pressure 121/73, heart rate 92, temperature 97.8, respirations 20. HEENT: Pale conjunctivae. CHEST: Clear. HEART: S1, S2, regular. Grade 4/6 ejection systolic murmur over left sternal border. ABDOMEN: Soft. EXTREMITIES: Dressings applied to both lower extremities; however, was oozing from the right leg affecting the dressing. LABORATORY DATA: Hemoglobin and hematocrit 10.3 and 33.5, white count and platelet count are within normal limits. Today's SMA-7 is entirely within normal limit, except for BUN of 25. ASSESSMENT: 1. Bilateral leg cellulitis with gram-negative rods. 2. Mild aortic stenosis. 3. 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 4. Anemia. RECOMMENDATIONS: Continue IV amikacin and IV ceftazidime. Continue subcutaneous Lovenox at 40 mg once daily. Plavix 75 mg once a day and aspirin 81 mg once a day. I did request for the nurse to remind surgical team with wound dressing today. Tobias Duggan MD
[2016-12-03 07:56] LABS: BASO # 0.1 K/uL (0.0-0.2); BASO % 1.2 % (0.0-2.0); EOS # 0.5 K/uL (0.0-0.7); EOS % 6.2 % (0.0-4.0); HEMATOCRIT 33.1 % (35.0-51.0); LYMPH # 2.7 K/uL (1.0-4.3); LYMPH % 32.8 % (20.0-40.0); MEAN CELL VOLUME 72.5 fL (80.0-94.0); MEAN CORPUSCULAR HEMOGLOBIN 22.5 pg (27.0-31.0); MEAN PLATELET VOLUME 10.1 fL (7.2-11.7); MONO # 1.3 K/uL (0.0-0.8); MONO % 15.6 % (0.0-10.0); RED CELL DISTRIBUTION WIDTH 27.7 % (11.5-14.5); WHITE BLOOD COUNT 8.3 K/uL (4.8-10.8)
[2016-12-03] MEDS: Amikacin 500 MG in Dextrose 5% In Water 100 ML IVPB SCH ×2 (08:19→20:12)
[2016-12-03 08:24] LABS: CHLORIDE 104 mmol/L (98-107); SODIUM 138 mmol/L (132-148)
[2016-12-03 08:25] LABS: POTASSIUM 4.8 mmol/L (3.6-5.2)
[2016-12-03 08:27] LABS: ALB/GLOB RATIO 0.8 (1.0-2.1); ALKALINE PHOSPHATASE 72 U/L (38-126); ALT/SGPT 38 U/L (21-72); AST/SGOT 41 U/L (17-59); BILIRUBIN,TOTAL 0.6 mg/dL (0.2-1.3); BLOOD UREA NITROGEN 20 mg/dL (9-20); CARBON DIOXIDE 26 mmol/L (22-30); GFR AFRICAN-AMERICAN > 60; GLUCOSE,RANDOM 75 mg/dL (75-110)
[2016-12-03 08:28] LABS: CALCIUM 9.1 mg/dl (8.6-10.4)
[2016-12-03] MEDS: Vitamins A & D Oint UD Foilpak TOP SCH ×2 (10:23→18:40)
[2016-12-03] MEDS: Enoxaparin 40 mg Syringe SC SCH (10:23)
[2016-12-03] MEDS: Saccharomyces Boulardi 250 mg Cap PO SCH ×2 (10:23→17:47)
--- NOTE | 2016-12-03 14:39 | CP.PCM.PN ---
Subjective - Date & Time of Evaluation Date of Evaluation: 12/03/16 Time of Evaluation: 15:30 - Subjective Subjective: Vascular Surgery Pt S&E, NAEO. Mild RLE pain, otherwise no complaints Objective - Vital Signs/Intake and Output Vital Signs (last 24 hours): Temp Pulse Resp BP Pulse Ox 98.2 F 74 20 129/89 99 12/03/16 08:07 12/02/16 23:40 12/03/16 08:07 12/03/16 08:07 12/03/16 08:07 Intake and Output: 12/03/16 12/03/16 06:59 18:59 Intake Total 300 680 Output Total 200 Balance 100 680 - Medications Medications: Current Medications Acetaminophen (Tylenol 325mg Tab) 975 mg PO Q8 PRN PRN Reason: fever or pain Last Admin: 12/01/16 12:24 Dose: 975 mg Aspirin (Aspirin Chewable) 81 mg PO DAILY [facility] Last Admin: 12/03/16 10:23 Dose: 81 mg Clopidogrel Bisulfate (Plavix) 75 mg PO DAILY [facility] Last Admin: 12/03/16 10:23 Dose: 75 mg Docusate Sodium (Colace) 100 mg PO TID [facility] Last Admin: 12/03/16 13:43 Dose: 100 mg Enoxaparin Sodium (Lovenox) 40 mg SC DAILY [facility] Last Admin: 12/03/16 10:23 Dose: 40 mg Famotidine (Pepcid) 20 mg PO BID [facility] Last Admin: 12/03/16 10:23 Dose: 20 mg Gabapentin (Neurontin) 100 mg PO BID [facility] Last Admin: 12/03/16 10:23 Dose: 100 mg Ceftazidime/Avibactam 2.5 gm/ (Sodium Chloride) 100 mls @ 50 mls/hr IV Q8H [facility] Last Admin: 12/03/16 13:42 Dose: 50 mls/hr Amikacin Sulfate 500 mg/ (Dextrose) 102 mls @ 102 mls/hr IVPB Q12H [facility] Last Admin: 12/03/16 08:19 Dose: 102 mls/hr Lactulose (Enulose) 20 gm PO BID [facility] Last Admin: 12/03/16 10:27 Dose: 20 gm Metoprolol Tartrate (Lopressor) 50 mg PO BID [facility] Last Admin: 12/03/16 10:23 Dose: 50 mg Oxycodone/Acetaminophen (Percocet 5/325 Mg Tab) 1 tab PO Q6H PRN PRN Reason: Pain, severe (8-10) Stop: 12/04/16 13:57 Last Admin: 12/02/16 18:54 Dose: 1 tab Saccharomyces Boulardii (Florastor) 250 mg PO BID [facility] Last Admin: 12/03/16 10:23 Dose: 250 mg Vitamin A (Vitamin A & D Oint Ud Foilpak) 1 ea TOP BID [facility] Last Admin: 12/03/16 10:23 Dose: 1 ea - Labs Labs: 12/03/16 07:35 12/03/16 07:35 PT 18.3 SECONDS (9.7-12.2) H 11/15/16 05:53 INR 1.6 11/15/16 05:53 APTT 31 SECONDS (21-34) 11/15/16 05:53 - Constitutional Appears: Non-toxic, No Acute Distress - Head Exam Head Exam: ATRAUMATIC, NORMOCEPHALIC - Respiratory Exam Respiratory Exam: NORMAL BREATHING PATTERN. absent: Respiratory Distress - Extremities Exam Additional comments: B/L leg wrapping intact, dry and clean Small spots of necrotic tissue on each leg within wounds - Neurological Exam Neurological Exam: Alert, Awake, Oriented x3 Assessment and Plan - Assessment and Plan (Free Text) Assessment: 81M s/p b/l leg debridement POD 18 Plan: -Dressing changed today. Continue q3 dressing changes with betadine -Continue antibiotics regimen as per ID recommendation -Continue wound cultures till cultures come back negative -Patient will not be able to obtain skin grafts until this infection clears. -No acute surgical intervention at this time PGY4
--- NOTE | 2016-12-03 14:42 | CP.PCM.PN ---
Subjective - Date & Time of Evaluation Date of Evaluation: 12/03/16 Time of Evaluation: 08:00 - Subjective Subjective: NO NEW COMPLAINTS IV RX IN PROGRESS Objective - Vital Signs/Intake and Output Vital Signs (last 24 hours): Temp Pulse Resp BP Pulse Ox 98.2 F 74 20 129/89 99 12/03/16 08:07 12/02/16 23:40 12/03/16 08:07 12/03/16 08:07 12/03/16 08:07 Intake and Output: 12/03/16 12/03/16 06:59 18:59 Intake Total 300 680 Output Total 200 Balance 100 680 - Medications Medications: Current Medications Acetaminophen (Tylenol 325mg Tab) 975 mg PO Q8 PRN PRN Reason: fever or pain Last Admin: 12/01/16 12:24 Dose: 975 mg Aspirin (Aspirin Chewable) 81 mg PO DAILY [facility] Last Admin: 12/03/16 10:23 Dose: 81 mg Clopidogrel Bisulfate (Plavix) 75 mg PO DAILY [facility] Last Admin: 12/03/16 10:23 Dose: 75 mg Docusate Sodium (Colace) 100 mg PO TID [facility] Last Admin: 12/03/16 13:43 Dose: 100 mg Enoxaparin Sodium (Lovenox) 40 mg SC DAILY [facility] Last Admin: 12/03/16 10:23 Dose: 40 mg Famotidine (Pepcid) 20 mg PO BID [facility] Last Admin: 12/03/16 10:23 Dose: 20 mg Gabapentin (Neurontin) 100 mg PO BID [facility] Last Admin: 12/03/16 10:23 Dose: 100 mg Ceftazidime/Avibactam 2.5 gm/ (Sodium Chloride) 100 mls @ 50 mls/hr IV Q8H [facility] Last Admin: 12/03/16 13:42 Dose: 50 mls/hr Amikacin Sulfate 500 mg/ (Dextrose) 102 mls @ 102 mls/hr IVPB Q12H [facility] Last Admin: 12/03/16 08:19 Dose: 102 mls/hr Lactulose (Enulose) 20 gm PO BID [facility] Last Admin: 12/03/16 10:27 Dose: 20 gm Metoprolol Tartrate (Lopressor) 50 mg PO BID [facility] Last Admin: 12/03/16 10:23 Dose: 50 mg Oxycodone/Acetaminophen (Percocet 5/325 Mg Tab) 1 tab PO Q6H PRN PRN Reason: Pain, severe (8-10) Stop: 12/04/16 13:57 Last Admin: 12/02/16 18:54 Dose: 1 tab Saccharomyces Boulardii (Florastor) 250 mg PO BID [facility] Last Admin: 12/03/16 10:23 Dose: 250 mg Vitamin A (Vitamin A & D Oint Ud Foilpak) 1 ea TOP BID [facility] Last Admin: 12/03/16 10:23 Dose: 1 ea - Labs Labs: 12/03/16 07:35 12/03/16 07:35 PT 18.3 SECONDS (9.7-12.2) H 11/15/16 05:53 INR 1.6 11/15/16 05:53 APTT 31 SECONDS (21-34) 11/15/16 05:53 - Constitutional Appears: Non-toxic, Cachectic, Chronically Ill - Head Exam Head Exam: NORMOCEPHALIC - Eye Exam Eye Exam: PERRL - ENT Exam ENT Exam: absent: Mucous Membranes Dry - Neck Exam Neck Exam: absent: Lymphadenopathy - Respiratory Exam Respiratory Exam: Decreased Breath Sounds - Cardiovascular Exam Cardiovascular Exam: REGULAR RHYTHM - GI/Abdominal Exam GI & Abdominal Exam: Distended, Soft - Rectal Exam Rectal Exam: Deferred - Exam Exam: NORMAL INSPECTION - Extremities Exam Extremities Exam: Pedal Edema, Tenderness - Back Exam Back Exam: absent: CVA tenderness (L), paraspinal tenderness Assessment and Plan (1) Cellulitis Status: Acute (2) Dehydration Status: Acute - Assessment and Plan (Free Text) Plan: CONT AVYCAZ/AMIKACIN CHECK LEVELS
--- NOTE | 2016-12-03 16:55 | PN ---
DATE: SUBJECTIVE: The patient has no complains except awaiting change dressing on both lower extremities. He ambulated today. No dizziness. PHYSICAL EXAMINATION VITAL SIGNS: Blood pressure 129/89, heart rate 102, temperature 98.2, respirations 20. HEENT: Pale conjunctivae. CHEST: Clear. HEART: S1, S2, regular. Grade 4/6 ejection systolic murmur over left sternal border. EXTREMITIES: Dressings applied to both lower extremities, both are oozing. LABORATORY DATA: Hemoglobin and hematocrit 10.3 and 33.1, white count and platelet count are within normal limits. Today's SMA-7 is within normal limit. ASSESSMENT: 1. Bilateral leg cellulitis. 2. Anemia. 3. Status post bioprosthetic aortic valve replacement. 4. Mild aortic stenosis. RECOMMENDATIONS: Continue IV amikacin and IV ceftazidime. Continue aspirin 81 mg once a day. Continue Lopressor 60 mg once a day, Plavix 75 mg once a day, Lovenox at 40 mg once a day. I did request surgical team to apply his dressing on bilateral lower extremities. Tobias Duggan MD
[2016-12-03] MEDS: Oxycodone/Acetaminophen 5/325 mg Tab PO PRN (17:53)
[2016-12-04] MEDS: Oxycodone/Acetaminophen 5/325 mg Tab PO PRN ×2 (01:02→09:32)
[2016-12-04 08:16] LABS: BASO # 0.1 K/uL (0.0-0.2); EOS # 0.5 K/uL (0.0-0.7); HEMATOCRIT 34.4 % (35.0-51.0); LYMPH # 2.2 K/uL (1.0-4.3); LYMPH % 30.5 % (20.0-40.0); MEAN CELL VOLUME 72.3 fL (80.0-94.0); MEAN CORPUSCULAR HEMOGLOBIN 22.2 pg (27.0-31.0); MEAN CORPUSCULAR HGB CONC 30.7 g/dL (33.0-37.0); MEAN PLATELET VOLUME 9.6 fL (7.2-11.7); MONO # 1.2 K/uL (0.0-0.8); MONO % 16.2 % (0.0-10.0); RED CELL DISTRIBUTION WIDTH 27.8 % (11.5-14.5); WHITE BLOOD COUNT 7.1 K/uL (4.8-10.8)
[2016-12-04 08:54] LABS: CHLORIDE 103 mmol/L (98-107); POTASSIUM 4.3 mmol/L (3.6-5.2); SODIUM 138 mmol/L (132-148)
[2016-12-04 08:56] LABS: ALB/GLOB RATIO 0.8 (1.0-2.1); ALKALINE PHOSPHATASE 82 U/L (38-126); AST/SGOT 35 U/L (17-59); BILIRUBIN,TOTAL 0.6 mg/dL (0.2-1.3); CARBON DIOXIDE 27 mmol/L (22-30); GFR AFRICAN-AMERICAN > 60; TOTAL PROTEIN 7.2 g/dL (6.3-8.3)
[2016-12-04 08:57] LABS: ALT/SGPT 35 U/L (21-72); BLOOD UREA NITROGEN 22 mg/dL (9-20); CALCIUM 9.5 mg/dl (8.6-10.4); GLUCOSE,RANDOM 84 mg/dL (75-110)
[2016-12-04] MEDS: Amikacin 500 MG in Dextrose 5% In Water 100 ML IVPB SCH (09:25)
[2016-12-04] MEDS: Enoxaparin 40 mg Syringe SC SCH (09:26)
[2016-12-04] MEDS: Vitamins A & D Oint UD Foilpak TOP SCH ×2 (09:26→17:10)
[2016-12-04] MEDS: Saccharomyces Boulardi 250 mg Cap PO SCH ×2 (09:26→17:10)
--- NOTE | 2016-12-04 10:09 | CP.PCM.PN ---
Subjective - Date & Time of Evaluation Date of Evaluation: 12/04/16 Time of Evaluation: 09:00 - Subjective Subjective: PGY3 on medicine Dr. Verdin service: Pt seen and examined at bedside this morning. Pt complains of leg pain as usual and helped with medication. No acute events overnight. Per RN, PICC was not functioning correctly and was unable to get blood return. Objective - Vital Signs/Intake and Output Vital Signs (last 24 hours): Temp Pulse Resp BP Pulse Ox 98.2 F 83 20 117/68 97 12/04/16 08:36 12/04/16 08:36 12/04/16 08:36 12/04/16 08:36 12/04/16 08:36 Intake and Output: 12/04/16 12/04/16 06:59 18:59 Intake Total 600 Output Total 250 Balance 350 - Medications Medications: Current Medications Acetaminophen (Tylenol 325mg Tab) 975 mg PO Q8 PRN PRN Reason: fever or pain Last Admin: 12/01/16 12:24 Dose: 975 mg Aspirin (Aspirin Chewable) 81 mg PO DAILY [facility] Last Admin: 12/04/16 09:26 Dose: 81 mg Clopidogrel Bisulfate (Plavix) 75 mg PO DAILY [facility] Last Admin: 12/04/16 09:26 Dose: 75 mg Docusate Sodium (Colace) 100 mg PO TID [facility] Last Admin: 12/04/16 09:26 Dose: 100 mg Enoxaparin Sodium (Lovenox) 40 mg SC DAILY [facility] Last Admin: 12/04/16 09:26 Dose: 40 mg Famotidine (Pepcid) 20 mg PO BID [facility] Last Admin: 12/04/16 09:26 Dose: 20 mg Gabapentin (Neurontin) 100 mg PO BID [facility] Last Admin: 12/04/16 09:26 Dose: 100 mg Ceftazidime/Avibactam 2.5 gm/ (Sodium Chloride) 100 mls @ 50 mls/hr IV Q8H [facility] Last Admin: 12/04/16 05:27 Dose: 50 mls/hr Amikacin Sulfate 500 mg/ (Dextrose) 102 mls @ 102 mls/hr IVPB Q12H [facility] Last Admin: 12/04/16 09:25 Dose: 102 mls/hr Lactulose (Enulose) 20 gm PO BID [facility] Last Admin: 12/04/16 09:31 Dose: Not Given Metoprolol Tartrate (Lopressor) 50 mg PO BID [facility] Last Admin: 12/04/16 09:26 Dose: 50 mg Oxycodone/Acetaminophen (Percocet 5/325 Mg Tab) 1 tab PO Q6H PRN PRN Reason: Pain, severe (8-10) Stop: 12/04/16 13:57 Last Admin: 12/04/16 09:32 Dose: 1 tab Saccharomyces Boulardii (Florastor) 250 mg PO BID [facility] Last Admin: 12/04/16 09:26 Dose: 250 mg Vitamin A (Vitamin A & D Oint Ud Foilpak) 1 ea TOP BID [facility] Last Admin: 12/04/16 09:26 Dose: 1 ea - Labs Labs: 12/04/16 08:04 12/04/16 08:04 PT 18.3 SECONDS (9.7-12.2) H 11/15/16 05:53 INR 1.6 11/15/16 05:53 APTT 31 SECONDS (21-34) 11/15/16 05:53 - Constitutional Appears: Non-toxic, No Acute Distress - Head Exam Head Exam: NORMOCEPHALIC - Eye Exam Eye Exam: Normal appearance - ENT Exam ENT Exam: Mucous Membranes Moist - Respiratory Exam Respiratory Exam: Clear to Ausculation Bilateral, NORMAL BREATHING PATTERN. absent: Wheezes - Cardiovascular Exam Cardiovascular Exam: REGULAR RHYTHM, +S1, +S2. absent: Gallop, Rubs - GI/Abdominal Exam GI & Abdominal Exam: Soft, Normal Bowel Sounds. absent: Tenderness - Extremities Exam Extremities Exam: Tenderness Additional comments: BLE dressing C/D/I - Neurological Exam Neurological Exam: Alert, Awake, Oriented x3 - Psychiatric Exam Psychiatric exam: Normal Mood - Skin Skin Exam: Intact Assessment and Plan - Assessment and Plan (Free Text) Assessment: 1. Bilateral Leg ulcers - 11/26 bilateral wound cultures: Pseudomonas aeruginosa, amikacin sensitive - Dr. Allison consulted: Continue antibiotics: Amikacin 750mg IV daily (11/19), on hold due to high level per Dr. Allison Avycaz 2.5gr IV Q8 (added on 11/29) - Continue Florastor 250 mg PO BID - Acetaminophen 975 mg PO Q8 prn for pain - Continue topical Vitamin A for wound. f/u with surgery for Q2 dressing changes - Started on Percocet 5/325 Q6h for pain - F/U Amikacin trough for 12/04 2. Anemia - Hgb 11.0 increased from 10.4 yesterday - continue Feosol 325mg PO daily - continue to monitor CBC daily 3. Mild aortic stenosis, s/p bioprosthetic aortic valve replacement - 11/15 EKG: sinus rhythm with premature atrial complexes, 79 bpm, left atrial enlargement, normal intervals. - Dr. Duggan consulted: continue ASA 81 mg PO daily, continue Plavix 75 mg PO daily, continue Lovenox 40 mg SC daily (added on 11/29), 4. HTN - continue Lopressor 50 mg PO BID. 5. Neuropathy - continue Neurontin 100mg PO BID 6. Constipation - continue Colace 100 mg PO TID - continue Lactulose 20 gr PO BID 7. Prophylaxis - Pepcid 20mg PO BID - Florastor 250 mg PO BID - Lovenox and Plavix Patient continues to have persistent infection and IV abx have been adjusted as detailed above by ID; with consideration for sensitivities. Will continue to monitor progression. Case discussed with Dr. Verdin. All management as per Dr. eVrdin.
--- NOTE | 2016-12-04 11:14 | CP.PCM.PN ---
Subjective - Date & Time of Evaluation Date of Evaluation: 12/04/16 Time of Evaluation: 09:00 - Subjective Subjective: last amikacin level elevated will hold and redraw level in am cont avycaz Objective - Vital Signs/Intake and Output Vital Signs (last 24 hours): Temp Pulse Resp BP Pulse Ox 98.2 F 83 20 117/68 97 12/04/16 08:36 12/04/16 08:36 12/04/16 08:36 12/04/16 08:36 12/04/16 08:36 Intake and Output: 12/04/16 12/04/16 06:59 18:59 Intake Total 600 Output Total 250 Balance 350 - Medications Medications: Current Medications Acetaminophen (Tylenol 325mg Tab) 975 mg PO Q8 PRN PRN Reason: fever or pain Last Admin: 12/01/16 12:24 Dose: 975 mg Aspirin (Aspirin Chewable) 81 mg PO DAILY [facility] Last Admin: 12/04/16 09:26 Dose: 81 mg Clopidogrel Bisulfate (Plavix) 75 mg PO DAILY [facility] Last Admin: 12/04/16 09:26 Dose: 75 mg Docusate Sodium (Colace) 100 mg PO TID [facility] Last Admin: 12/04/16 09:26 Dose: 100 mg Enoxaparin Sodium (Lovenox) 40 mg SC DAILY [facility] Last Admin: 12/04/16 09:26 Dose: 40 mg Famotidine (Pepcid) 20 mg PO BID [facility] Last Admin: 12/04/16 09:26 Dose: 20 mg Gabapentin (Neurontin) 100 mg PO BID [facility] Last Admin: 12/04/16 09:26 Dose: 100 mg Ceftazidime/Avibactam 2.5 gm/ (Sodium Chloride) 100 mls @ 50 mls/hr IV Q8H [facility] Last Admin: 12/04/16 05:27 Dose: 50 mls/hr Lactulose (Enulose) 20 gm PO BID [facility] Last Admin: 12/04/16 09:31 Dose: Not Given Metoprolol Tartrate (Lopressor) 50 mg PO BID [facility] Last Admin: 12/04/16 09:26 Dose: 50 mg Oxycodone/Acetaminophen (Percocet 5/325 Mg Tab) 1 tab PO Q6H PRN PRN Reason: Pain, severe (8-10) Stop: 12/04/16 13:57 Last Admin: 12/04/16 09:32 Dose: 1 tab Saccharomyces Boulardii (Florastor) 250 mg PO BID [facility] Last Admin: 12/04/16 09:26 Dose: 250 mg Vitamin A (Vitamin A & D Oint Ud Foilpak) 1 ea TOP BID [facility] Last Admin: 12/04/16 09:26 Dose: 1 ea - Labs Labs: 12/04/16 08:04 12/04/16 08:04 PT 18.3 SECONDS (9.7-12.2) H 11/15/16 05:53 INR 1.6 11/15/16 05:53 APTT 31 SECONDS (21-34) 11/15/16 05:53 Assessment and Plan (1) Cellulitis Status: Acute (2) Dehydration Status: Acute
--- NOTE | 2016-12-04 15:40 | RAD ---
HISTORY: PICC placement COMPARISON: 10/11/2016 FINDINGS: LUNGS: No active pulmonary disease. PLEURA: No significant pleural effusion identified, no pneumothorax apparent. CARDIOVASCULAR: Sternotomy wires. Aortic valvular replacement. Right PICC catheter terminates in the region of the superior vena cava. OSSEOUS STRUCTURES: No significant abnormalities. VISUALIZED UPPER ABDOMEN: Normal. OTHER FINDINGS: None. IMPRESSION: Right PICC catheter terminates in the region of the superior vena cava.
[2016-12-05 06:56] LABS: BASO # 0.1 K/uL (0.0-0.2); BASO % 0.8 % (0.0-2.0); EOS # 0.7 K/uL (0.0-0.7); EOS % 9.2 % (0.0-4.0); HEMATOCRIT 32.6 % (35.0-51.0); LYMPH # 2.5 K/uL (1.0-4.3); LYMPH % 32.7 % (20.0-40.0); MEAN CELL VOLUME 72.3 fL (80.0-94.0); MEAN CORPUSCULAR HEMOGLOBIN 22.9 pg (27.0-31.0); MEAN CORPUSCULAR HGB CONC 31.7 g/dL (33.0-37.0); MEAN PLATELET VOLUME 9.3 fL (7.2-11.7); MONO # 1.1 K/uL (0.0-0.8); MONO % 14.2 % (0.0-10.0); RED CELL DISTRIBUTION WIDTH 28.1 % (11.5-14.5); WHITE BLOOD COUNT 7.5 K/uL (4.8-10.8)
--- NOTE | 2016-12-05 07:23 | CP.PCM.PN ---
Subjective - Date & Time of Evaluation Date of Evaluation: 12/05/16 Time of Evaluation: 07:00 - Subjective Subjective: PGY-[address] Verdin Patient seen and examined at bedside. No acutes events reported overnight. Patient continues to complain about his leg pain. Patient complains headache, fever, chills, shortness of breath, chest pain, nausea, vomiting, or diarrhea. Objective - Vital Signs/Intake and Output Vital Signs (last 24 hours): Temp Pulse Resp BP Pulse Ox 98.0 F 79 20 114/72 99 12/05/16 00:00 12/05/16 00:00 12/05/16 00:00 12/05/16 00:00 12/05/16 00:00 Intake and Output: 12/05/16 12/05/16 06:59 18:59 Intake Total 350 Balance 350 - Medications Medications: Current Medications Acetaminophen (Tylenol 325mg Tab) 975 mg PO Q8 PRN PRN Reason: fever or pain Last Admin: 12/05/16 00:36 Dose: 975 mg Aspirin (Aspirin Chewable) 81 mg PO DAILY [facility] Last Admin: 12/04/16 09:26 Dose: 81 mg Clopidogrel Bisulfate (Plavix) 75 mg PO DAILY [facility] Last Admin: 12/04/16 09:26 Dose: 75 mg Docusate Sodium (Colace) 100 mg PO TID [facility] Last Admin: 12/04/16 17:10 Dose: 100 mg Enoxaparin Sodium (Lovenox) 40 mg SC DAILY [facility] Last Admin: 12/04/16 09:26 Dose: 40 mg Famotidine (Pepcid) 20 mg PO BID [facility] Last Admin: 12/04/16 17:10 Dose: 20 mg Gabapentin (Neurontin) 100 mg PO BID [facility] Last Admin: 12/04/16 17:10 Dose: 100 mg Ceftazidime/Avibactam 2.5 gm/ (Sodium Chloride) 100 mls @ 50 mls/hr IV Q8H [facility] Last Admin: 12/05/16 05:21 Dose: 50 mls/hr Lactulose (Enulose) 20 gm PO BID [facility] Last Admin: 12/04/16 17:09 Dose: 20 gm Metoprolol Tartrate (Lopressor) 50 mg PO BID [facility] Last Admin: 12/04/16 17:10 Dose: Not Given Saccharomyces Boulardii (Florastor) 250 mg PO BID [facility] Last Admin: 12/04/16 17:10 Dose: 250 mg Vitamin A (Vitamin A & D Oint Ud Foilpak) 1 ea TOP BID [facility] Last Admin: 12/04/16 17:10 Dose: 1 ea - Labs Labs: 12/05/16 06:39 12/04/16 08:04 PT 18.3 SECONDS (9.7-12.2) H 11/15/16 05:53 INR 1.6 11/15/16 05:53 APTT 31 SECONDS (21-34) 11/15/16 05:53 - Constitutional Appears: Non-toxic, No Acute Distress - Head Exam Head Exam: NORMAL INSPECTION - Eye Exam Eye Exam: Normal appearance - ENT Exam ENT Exam: Mucous Membranes Moist - Neck Exam Neck Exam: Normal Inspection - Respiratory Exam Respiratory Exam: Clear to Ausculation Bilateral, NORMAL BREATHING PATTERN. absent: Wheezes, Respiratory Distress - Cardiovascular Exam Cardiovascular Exam: REGULAR RHYTHM, +S1, +S2. absent: Murmur - GI/Abdominal Exam GI & Abdominal Exam: Soft, Normal Bowel Sounds. absent: Tenderness - Extremities Exam Extremities Exam: Tenderness Additional comments: Bilateral lower extremity wound dressing clean, dry and intact - Neurological Exam Neurological Exam: Alert, Awake, Oriented x3 - Psychiatric Exam Psychiatric exam: Normal Affect, Normal Mood - Skin Skin Exam: Dry, Warm Assessment and Plan - Assessment and Plan (Free Text) Assessment: 1. Bilateral Leg ulcers - 12/03 bilateral wound cultures: no growth after 24hr - 11/26 bilateral wound cultures: Pseudomonas aeruginosa, amikacin sensitive - Dr. Allison consulted: Continue antibiotics: Amikacin 750mg IV daily (11/19), on hold due to high level per Dr. Allison Avycaz 2.5gr IV Q8 (added on 11/29) - Continue Florastor 250 mg PO BID - Acetaminophen 975 mg PO Q8 prn for pain - Continue topical Vitamin A for wound. f/u with surgery for Q2 dressing changes - Started on Percocet 5/325 Q6h for pain - Amikacin trough 21.9 on 12/01/16 2. Anemia - Hgb 11.0 increased from 10.4 yesterday - continue Feosol 325mg PO daily - continue to monitor CBC daily 3. Mild aortic stenosis, s/p bioprosthetic aortic valve replacement - 11/15 EKG: sinus rhythm with premature atrial complexes, 79 bpm, left atrial enlargement, normal intervals. - Dr. Duggan consulted: continue ASA 81 mg PO daily, continue Plavix 75 mg PO daily, continue Lovenox 40 mg SC daily (added on 11/29), 4. HTN - continue Lopressor 50 mg PO BID. 5. Neuropathy - continue Neurontin 100mg PO BID 6. Constipation - continue Colace 100 mg PO TID - continue Lactulose 20 gr PO BID 7. Prophylaxis - Pepcid 20mg PO BID - Florastor 250 mg PO BID - Lovenox and Plavix Patient is unable to self administer IV antibiotics at home, placement pending Case discussed with Dr. Verdin. All management as per Dr. Verdin.
[2016-12-05 08:02] LABS: CHLORIDE 102 mmol/L (98-107); SODIUM 137 mmol/L (132-148)
[2016-12-05 08:03] LABS: POTASSIUM 4.1 mmol/L (3.6-5.2)
[2016-12-05 08:04] LABS: GFR AFRICAN-AMERICAN > 60
[2016-12-05 08:05] LABS: ALB/GLOB RATIO 0.8 (1.0-2.1); ALKALINE PHOSPHATASE 80 U/L (38-126); AST/SGOT 30 U/L (17-59); BILIRUBIN,TOTAL 0.5 mg/dL (0.2-1.3); BLOOD UREA NITROGEN 22 mg/dL (9-20); CARBON DIOXIDE 26 mmol/L (22-30); TOTAL PROTEIN 7.2 g/dL (6.3-8.3)
[2016-12-05 08:06] LABS: ALT/SGPT 33 U/L (21-72); CALCIUM 9.4 mg/dl (8.6-10.4); GLUCOSE,RANDOM 80 mg/dL (75-110)
[2016-12-05] MEDS: Saccharomyces Boulardi 250 mg Cap PO SCH ×2 (09:58→18:07)
[2016-12-05] MEDS: Vitamins A & D Oint UD Foilpak TOP SCH ×2 (09:58→18:08)
[2016-12-05] MEDS: Enoxaparin 40 mg Syringe SC SCH (09:59)
--- NOTE | 2016-12-05 22:13 | PN ---
DATE: SUBJECTIVE: The patient denies any chest pain or shortness of breath. He is ambulating. PHYSICAL EXAMINATION VITAL SIGNS: Blood pressure 103/75, heart rate 69, temperature 97.9, respirations 18. HEENT: Pale conjunctivae. CHEST: Clear. HEART: S1, S2, regular. Grade 4/6 ejection systolic murmur over left sternal border. EXTREMITIES: Bilateral leg cellulitis with dressing applied to both lower extremities. LABORATORY DATA: Hemoglobin and hematocrit 10.3 and 32.6, white count and platelet count are within normal limits. Today's SMA-7 is within normal limit except for BUN of 22. ASSESSMENT: 1. Bilateral leg cellulitis. 2. 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 3. Clinically mild aortic stenosis. RECOMMENDATIONS: He requested to renew aspirin and Plavix therapy. Continue Lopressor 50 mg twice a day, IV ceftazidime 2.5 g q. 8 hours, and I requested from the nursing team to notify the surgical supervisor with bilateral leg dressing to be done today/ Tobias Duggan MD
[2016-12-06 06:14] LABS: BASO # 0.1 K/uL (0.0-0.2); BASO % 1.4 % (0.0-2.0); EOS # 0.6 K/uL (0.0-0.7); EOS % 7.7 % (0.0-4.0); HEMATOCRIT 33.4 % (35.0-51.0); LYMPH # 2.5 K/uL (1.0-4.3); LYMPH % 30.7 % (20.0-40.0); MEAN CELL VOLUME 72.5 fL (80.0-94.0); MEAN CORPUSCULAR HGB CONC 31.7 g/dL (33.0-37.0); MEAN PLATELET VOLUME 9.5 fL (7.2-11.7); MONO # 1.1 K/uL (0.0-0.8); RED CELL DISTRIBUTION WIDTH 27.5 % (11.5-14.5); WHITE BLOOD COUNT 8.1 K/uL (4.8-10.8)
[2016-12-06 07:12] LABS: CHLORIDE 103 mmol/L (98-107); POTASSIUM 4.3 mmol/L (3.6-5.2); SODIUM 139 mmol/L (132-148)
[2016-12-06 07:14] LABS: AST/SGOT 32 U/L (17-59); BILIRUBIN,TOTAL 0.6 mg/dL (0.2-1.3); CARBON DIOXIDE 27 mmol/L (22-30); GFR AFRICAN-AMERICAN > 60
[2016-12-06 07:15] LABS: ALB/GLOB RATIO 0.8 (1.0-2.1); ALKALINE PHOSPHATASE 82 U/L (38-126); ALT/SGPT 32 U/L (21-72); BLOOD UREA NITROGEN 22 mg/dL (9-20); CALCIUM 9.5 mg/dl (8.6-10.4); GLUCOSE,RANDOM 86 mg/dL (75-110); TOTAL PROTEIN 7.4 g/dL (6.3-8.3)
[2016-12-06] MEDS: Vitamins A & D Oint UD Foilpak TOP SCH ×2 (09:44→17:56)
[2016-12-06] MEDS: Enoxaparin 40 mg Syringe SC SCH (09:44)
[2016-12-06] MEDS: Saccharomyces Boulardi 250 mg Cap PO SCH ×2 (09:44→17:56)
--- NOTE | 2016-12-06 12:52 | CP.PCM.PN ---
Subjective - Date & Time of Evaluation Date of Evaluation: 12/06/16 Time of Evaluation: 07:45 - Subjective Subjective: PGY-[address] Verdin Patient seen and examined at bedside. No acute events overnight. Patient is concerned about IV antibiotic administration by himself. Reassurance was provided, patient was informed that case management is setting him up with a home visiting nurse to teach him. Patient denies having headache, fever, chills , shortness of breath, chest pain, nausea, vomiting, or diarrhea. Objective - Vital Signs/Intake and Output Vital Signs (last 24 hours): Temp Pulse Resp BP Pulse Ox 97.7 F 78 20 118/66 97 12/06/16 08:21 12/06/16 08:21 12/06/16 08:21 12/06/16 08:21 12/06/16 08:21 - Medications Medications: Current Medications Acetaminophen (Tylenol 325mg Tab) 975 mg PO Q8 PRN PRN Reason: fever or pain Last Admin: 12/06/16 05:41 Dose: 975 mg Aspirin (Aspirin Chewable) 81 mg PO DAILY [facility] Last Admin: 12/06/16 09:44 Dose: 81 mg Clopidogrel Bisulfate (Plavix) 75 mg PO DAILY [facility] Last Admin: 12/06/16 09:44 Dose: 75 mg Docusate Sodium (Colace) 100 mg PO TID [facility] Last Admin: 12/06/16 09:44 Dose: 100 mg Enoxaparin Sodium (Lovenox) 40 mg SC DAILY [facility] Last Admin: 12/06/16 09:44 Dose: 40 mg Famotidine (Pepcid) 20 mg PO BID [facility] Last Admin: 12/06/16 09:44 Dose: 20 mg Gabapentin (Neurontin) 100 mg PO BID [facility] Last Admin: 12/06/16 09:44 Dose: 100 mg Ceftazidime/Avibactam 2.5 gm/ (Sodium Chloride) 100 mls @ 50 mls/hr IV Q8H [facility] Last Admin: 12/06/16 05:24 Dose: 50 mls/hr Lactulose (Enulose) 20 gm PO BID [facility] Last Admin: 12/06/16 09:49 Dose: Not Given Metoprolol Tartrate (Lopressor) 50 mg PO BID [facility] Last Admin: 12/06/16 09:44 Dose: 50 mg Saccharomyces Boulardii (Florastor) 250 mg PO BID [facility] Last Admin: 12/06/16 09:44 Dose: 250 mg Vitamin A (Vitamin A & D Oint Ud Foilpak) 1 ea TOP BID [facility] Last Admin: 12/06/16 09:44 Dose: 1 ea - Labs Labs: 12/06/16 06:07 12/06/16 06:07 PT 18.3 SECONDS (9.7-12.2) H 11/15/16 05:53 INR 1.6 11/15/16 05:53 APTT 31 SECONDS (21-34) 11/15/16 05:53 - Constitutional Appears: Non-toxic, No Acute Distress - Head Exam Head Exam: ATRAUMATIC, NORMAL INSPECTION - Eye Exam Eye Exam: Normal appearance - ENT Exam ENT Exam: Mucous Membranes Moist - Neck Exam Neck Exam: Normal Inspection - Respiratory Exam Respiratory Exam: Clear to Ausculation Bilateral, NORMAL BREATHING PATTERN. absent: Respiratory Distress - Cardiovascular Exam Cardiovascular Exam: REGULAR RHYTHM, +S1, +S2. absent: Murmur - GI/Abdominal Exam GI & Abdominal Exam: Soft, Normal Bowel Sounds. absent: Tenderness - Extremities Exam Additional comments: Right upper extremity PICC in place Bilateral lower extremity wound dressing clean, dry and intact - Neurological Exam Neurological Exam: Alert, Awake, Oriented x3 - Psychiatric Exam Psychiatric exam: Normal Affect, Normal Mood - Skin Skin Exam: Dry, Warm Assessment and Plan - Assessment and Plan (Free Text) Assessment: 1. Bilateral Leg ulcers - Scheduled for Skin graft in the OR with Dr. Velasquez tomorrow - 12/03 bilateral wound cultures: no growth after 24hr - 11/26 bilateral wound cultures: Pseudomonas aeruginosa, amikacin sensitive - Dr. Allison consulted: Continue antibiotics: Avycaz 2.5gr IV Q8 (added on 11/29) - Continue Florastor 250 mg PO BID - Acetaminophen 975 mg PO Q8 prn for pain - Continue topical Vitamin A for wound. f/u with surgery for Q2 dressing changes - Started on Percocet 5/325 Q6h for pain - Amikacin trough 21.9 on 12/01/16 2. Anemia - Hgb 10.6 today - continue Feosol 325mg PO daily - continue to monitor CBC daily 3. Mild aortic stenosis, s/p bioprosthetic aortic valve replacement - 11/15 EKG: sinus rhythm with premature atrial complexes, 79 bpm, left atrial enlargement, normal intervals. - Dr. Duggan consulted: continue ASA 81 mg PO daily, continue Plavix 75 mg PO daily, continue Lovenox 40 mg SC daily (added on 11/29), 4. HTN - continue Lopressor 50 mg PO BID. 5. Neuropathy - continue Neurontin 100mg PO BID 6. Constipation - continue Colace 100 mg PO TID - continue Lactulose 20 gr PO BID 7. Prophylaxis - Pepcid 20mg PO BID - Florastor 250 mg PO BID - Lovenox and Plavix Home visiting nurse already set up per case management, will help patient administer IV antibiotics at home. Case discussed with Dr. Verdin. All management as per Dr. Verdin.
--- NOTE | 2016-12-06 14:44 | CP.PCM.PN ---
Subjective - Date & Time of Evaluation Date of Evaluation: 12/06/16 Time of Evaluation: 10:30 - Subjective Subjective: General Surgery Note Patient was seen and examined at bedside in no acute distress. Patient denies fever, chills, nausea, vomiting but admits to moderate bilateral leg pain. Patient has no new complaints. Objective - Vital Signs/Intake and Output Vital Signs (last 24 hours): Temp Pulse Resp BP Pulse Ox 97.7 F 78 20 118/66 97 12/06/16 08:21 12/06/16 08:21 12/06/16 08:21 12/06/16 08:21 12/06/16 08:21 - Medications Medications: Current Medications Acetaminophen (Tylenol 325mg Tab) 975 mg PO Q8 PRN PRN Reason: fever or pain Last Admin: 12/06/16 05:41 Dose: 975 mg Aspirin (Aspirin Chewable) 81 mg PO DAILY [facility] Last Admin: 12/06/16 09:44 Dose: 81 mg Clopidogrel Bisulfate (Plavix) 75 mg PO DAILY [facility] Last Admin: 12/06/16 09:44 Dose: 75 mg Docusate Sodium (Colace) 100 mg PO TID [facility] Last Admin: 12/06/16 14:20 Dose: 100 mg Enoxaparin Sodium (Lovenox) 40 mg SC DAILY [facility] Last Admin: 12/06/16 09:44 Dose: 40 mg Famotidine (Pepcid) 20 mg PO BID [facility] Last Admin: 12/06/16 09:44 Dose: 20 mg Gabapentin (Neurontin) 100 mg PO BID [facility] Last Admin: 12/06/16 09:44 Dose: 100 mg Ceftazidime/Avibactam 2.5 gm/ (Sodium Chloride) 100 mls @ 50 mls/hr IV Q8H [facility] Last Admin: 12/06/16 13:30 Dose: 50 mls/hr Lactulose (Enulose) 20 gm PO BID [facility] Last Admin: 12/06/16 09:49 Dose: Not Given Metoprolol Tartrate (Lopressor) 50 mg PO BID [facility] Last Admin: 12/06/16 09:44 Dose: 50 mg Saccharomyces Boulardii (Florastor) 250 mg PO BID [facility] Last Admin: 12/06/16 09:44 Dose: 250 mg Vitamin A (Vitamin A & D Oint Ud Foilpak) 1 ea TOP BID [facility] Last Admin: 12/06/16 09:44 Dose: 1 ea - Labs Labs: 12/06/16 06:07 12/06/16 06:07 PT 18.3 SECONDS (9.7-12.2) H 11/15/16 05:53 INR 1.6 11/15/16 05:53 APTT 31 SECONDS (21-34) 11/15/16 05:53 - Constitutional Appears: Well, No Acute Distress - Head Exam Head Exam: ATRAUMATIC, NORMAL INSPECTION - Eye Exam Eye Exam: EOMI, Normal appearance - ENT Exam ENT Exam: Mucous Membranes Moist, Normal Exam - Respiratory Exam Respiratory Exam: Clear to Ausculation Bilateral, NORMAL BREATHING PATTERN - Cardiovascular Exam Cardiovascular Exam: REGULAR RHYTHM, +S1, +S2, Murmur Additional comments: Systolic murmur - GI/Abdominal Exam GI & Abdominal Exam: Soft, Normal Bowel Sounds - Extremities Exam Additional comments: B/L leg wrapping intact, dry and clean - Neurological Exam Neurological Exam: Alert, Awake, Oriented x3 - Psychiatric Exam Psychiatric exam: Normal Affect, Normal Mood - Skin Skin Exam: Dry, Normal Color, Warm Assessment and Plan - Assessment and Plan (Free Text) Assessment: 81M s/p b/l leg debridement POD 21 Plan: - Plan for OR tomorrow for skin graft -Dressing changed today. -Continue antibiotics regimen as per ID recommendation -F/u repeat wound culture from (12/06/16) -Pain control PRN -Further recs per Dr. Ron Mancera, PGY-1
[2016-12-06] MEDS: Oxycodone/Acetaminophen 5/325 mg Tab PO PRN ×2 (15:17→20:50)
[2016-12-06 17:03] LABS: INR 1.2
--- NOTE | 2016-12-06 18:55 | CP.PCM.PN ---
Subjective - Date & Time of Evaluation Date of Evaluation: 12/06/16 Time of Evaluation: 09:00 - Subjective Subjective: SLOW PROGRESS IV RX TO CONT Objective - Vital Signs/Intake and Output Vital Signs (last 24 hours): Temp Pulse Resp BP Pulse Ox 98.2 F 71 20 118/70 98 12/06/16 16:00 12/06/16 16:00 12/06/16 16:00 12/06/16 16:00 12/06/16 16:00 Intake and Output: 12/06/16 12/06/16 06:59 18:59 Intake Total 660 Balance 660 - Medications Medications: Current Medications Acetaminophen (Tylenol 325mg Tab) 975 mg PO Q8 PRN PRN Reason: fever or pain Last Admin: 12/06/16 05:41 Dose: 975 mg Aspirin (Aspirin Chewable) 81 mg PO DAILY [facility] Last Admin: 12/06/16 09:44 Dose: 81 mg Clopidogrel Bisulfate (Plavix) 75 mg PO DAILY [facility] Last Admin: 12/06/16 09:44 Dose: 75 mg Docusate Sodium (Colace) 100 mg PO TID [facility] Last Admin: 12/06/16 17:56 Dose: 100 mg Enoxaparin Sodium (Lovenox) 40 mg SC DAILY [facility] Last Admin: 12/06/16 09:44 Dose: 40 mg Famotidine (Pepcid) 20 mg PO BID [facility] Last Admin: 12/06/16 17:56 Dose: 20 mg Gabapentin (Neurontin) 100 mg PO BID [facility] Last Admin: 12/06/16 17:57 Dose: 100 mg Ceftazidime/Avibactam 2.5 gm/ (Sodium Chloride) 100 mls @ 50 mls/hr IV Q8H [facility] Last Admin: 12/06/16 13:30 Dose: 50 mls/hr Lactulose (Enulose) 20 gm PO BID [facility] Last Admin: 12/06/16 17:57 Dose: 20 gm Metoprolol Tartrate (Lopressor) 50 mg PO BID [facility] Last Admin: 12/06/16 17:59 Dose: 50 mg Oxycodone/Acetaminophen (Percocet 5/325 Mg Tab) 1 tab PO Q4H PRN PRN Reason: Pain, moderate (4-7) Stop: 12/09/16 15:12 Last Admin: 12/06/16 15:17 Dose: 1 tab Saccharomyces Boulardii (Florastor) 250 mg PO BID [facility] Last Admin: 12/06/16 17:56 Dose: 250 mg Vitamin A (Vitamin A & D Oint Ud Foilpak) 1 ea TOP BID [facility] Last Admin: 12/06/16 17:56 Dose: 1 ea - Labs Labs: 12/06/16 06:07 12/06/16 06:07 PT 13.4 SECONDS (9.7-12.2) H 12/06/16 16:51 INR 1.2 12/06/16 16:51 APTT 34 SECONDS (21-34) 12/06/16 16:51 Assessment and Plan (1) Cellulitis Status: Acute (2) Dehydration Status: Acute
[2016-12-07 06:55] LABS: BASO # 0.1 K/uL (0.0-0.2); BASO % 0.9 % (0.0-2.0); EOS # 0.7 K/uL (0.0-0.7); EOS % 9.5 % (0.0-4.0); HEMATOCRIT 32.8 % (35.0-51.0); LYMPH # 2.4 K/uL (1.0-4.3); LYMPH % 30.9 % (20.0-40.0); MEAN CELL VOLUME 72.3 fL (80.0-94.0); MEAN CORPUSCULAR HEMOGLOBIN 22.8 pg (27.0-31.0); MEAN CORPUSCULAR HGB CONC 31.5 g/dL (33.0-37.0); MEAN PLATELET VOLUME 10.1 fL (7.2-11.7); MONO # 1.1 K/uL (0.0-0.8); MONO % 14.5 % (0.0-10.0); NRBC % 0.1 % (0.0-2.0); RED CELL DISTRIBUTION WIDTH 27.5 % (11.5-14.5); WHITE BLOOD COUNT 7.8 K/uL (4.8-10.8)
[2016-12-07 07:00] LABS: INR 1.2
--- NOTE | 2016-12-07 07:38 | CP.PCM.PN ---
Subjective - Date & Time of Evaluation Date of Evaluation: 12/07/16 Time of Evaluation: 08:00 - Subjective Subjective: PGY3 on medicine Dr. Verdin service: Pt seen and examined at bedside this morning. Pt not in acute distress. No acute events overnight. Pt said he is ready for OR skin graft procedure. Objective - Vital Signs/Intake and Output Vital Signs (last 24 hours): Temp Pulse Resp BP Pulse Ox 98.2 F 65 20 126/67 98 12/06/16 23:30 12/06/16 23:30 12/06/16 23:30 12/06/16 23:30 12/06/16 23:30 - Medications Medications: Current Medications Acetaminophen (Tylenol 325mg Tab) 975 mg PO Q8 PRN PRN Reason: fever or pain Last Admin: 12/06/16 05:41 Dose: 975 mg Aspirin (Aspirin Chewable) 81 mg PO DAILY [facility] Last Admin: 12/06/16 09:44 Dose: 81 mg Clopidogrel Bisulfate (Plavix) 75 mg PO DAILY [facility] Last Admin: 12/06/16 09:44 Dose: 75 mg Docusate Sodium (Colace) 100 mg PO TID [facility] Last Admin: 12/06/16 17:56 Dose: 100 mg Enoxaparin Sodium (Lovenox) 40 mg SC DAILY [facility] Last Admin: 12/06/16 09:44 Dose: 40 mg Famotidine (Pepcid) 20 mg PO BID [facility] Last Admin: 12/06/16 17:56 Dose: 20 mg Gabapentin (Neurontin) 100 mg PO BID [facility] Last Admin: 12/06/16 17:57 Dose: 100 mg Ceftazidime/Avibactam 2.5 gm/ (Sodium Chloride) 100 mls @ 50 mls/hr IV Q8H [facility] Last Admin: 12/07/16 05:03 Dose: 50 mls/hr Lactulose (Enulose) 20 gm PO BID [facility] Last Admin: 12/06/16 17:57 Dose: 20 gm Metoprolol Tartrate (Lopressor) 50 mg PO BID [facility] Last Admin: 12/06/16 17:59 Dose: 50 mg Oxycodone/Acetaminophen (Percocet 5/325 Mg Tab) 1 tab PO Q4H PRN PRN Reason: Pain, moderate (4-7) Stop: 12/09/16 15:12 Last Admin: 12/06/16 20:50 Dose: 1 tab Saccharomyces Boulardii (Florastor) 250 mg PO BID [facility] Last Admin: 12/06/16 17:56 Dose: 250 mg Vitamin A (Vitamin A & D Oint Ud Foilpak) 1 ea TOP BID [facility] Last Admin: 12/06/16 17:56 Dose: 1 ea - Labs Labs: 12/07/16 06:44 12/06/16 06:07 PT 13.5 SECONDS (9.7-12.2) H 12/07/16 06:44 INR 1.2 12/07/16 06:44 APTT 30 SECONDS (21-34) 12/07/16 06:44 - Constitutional Appears: Non-toxic, No Acute Distress - Head Exam Head Exam: NORMOCEPHALIC - Eye Exam Eye Exam: Normal appearance - ENT Exam ENT Exam: Mucous Membranes Moist - Respiratory Exam Respiratory Exam: Clear to Ausculation Bilateral, NORMAL BREATHING PATTERN. absent: Wheezes - Cardiovascular Exam Cardiovascular Exam: REGULAR RHYTHM, +S1, +S2, Murmur - GI/Abdominal Exam GI & Abdominal Exam: Soft, Normal Bowel Sounds - Extremities Exam Additional comments: BLE dressing intact dry and clean. RUE PICC in place - Neurological Exam Neurological Exam: Alert, Awake, Oriented x3 Assessment and Plan - Assessment and Plan (Free Text) Assessment: 1. Bilateral Leg ulcers - Scheduled for Skin graft in the OR with Dr. Velasquez today - 12/03 bilateral wound cultures: no growth after 48hr - 11/26 bilateral wound cultures: Pseudomonas aeruginosa, amikacin sensitive - Dr. Allison consulted: Continue antibiotics: Avycaz 2.5gr IV Q8 (added on 11/29) - Continue Florastor 250 mg PO BID - Acetaminophen 975 mg PO Q8 prn for pain - Continue topical Vitamin A for wound. f/u with surgery for Q2 dressing changes - Started on Percocet 5/325 Q6h for pain - Amikacin trough 21.9 on 12/01/16 2. Anemia - Hgb 10.3 today - continue Feosol 325mg PO daily - continue to monitor CBC daily 3. Mild aortic stenosis, s/p bioprosthetic aortic valve replacement - 11/15 EKG: sinus rhythm with premature atrial complexes, 79 bpm, left atrial enlargement, normal intervals. - Dr. Duggan consulted: continue ASA 81 mg PO daily, continue Plavix 75 mg PO daily, continue Lovenox 40 mg SC daily (added on 11/29) - Pending cardiac clearance for procedure, per Dr. Duggan pt may proceed with acceptable cardiac risk if EKG is unremarkable 4. HTN - continue Lopressor 50 mg PO BID. 5. Neuropathy - continue Neurontin 100mg PO BID 6. Constipation - continue Colace 100 mg PO TID - continue Lactulose 20 gr PO BID 7. Prophylaxis - Pepcid 20mg PO BID - Florastor 250 mg PO BID - Lovenox and Plavix Home visiting nurse already set up per case management, will help patient administer IV antibiotics at home. Case discussed with Dr. Verdin. All management as per Dr. Verdin.
[2016-12-07 07:43] LABS: CHLORIDE 104 mmol/L (98-107); POTASSIUM 4.5 mmol/L (3.6-5.2); SODIUM 138 mmol/L (132-148)
[2016-12-07 07:45] LABS: BILIRUBIN,TOTAL 0.6 mg/dL (0.2-1.3); CARBON DIOXIDE 27 mmol/L (22-30); GFR AFRICAN-AMERICAN > 60
[2016-12-07 07:46] LABS: ALB/GLOB RATIO 0.8 (1.0-2.1); ALKALINE PHOSPHATASE 77 U/L (38-126); ALT/SGPT 29 U/L (21-72); AST/SGOT 32 U/L (17-59); BLOOD UREA NITROGEN 19 mg/dL (9-20); CALCIUM 9.4 mg/dl (8.6-10.4); GLUCOSE,RANDOM 76 mg/dL (75-110); TOTAL PROTEIN 7.1 g/dL (6.3-8.3)
--- NOTE | 2016-12-07 08:00 | PN ---
SUBJECTIVE: I was asked to reevaluate the patient for possible skin grafting tomorrow around noontime. The patient denies any chest pain or shortness of breath at this time. PHYSICAL EXAMINATION VITAL SIGNS: Blood pressure 118/70, heart rate is 71, temperature 98.2, respirations 20. HEENT: Pale conjunctivae. CHEST: Clear. HEART: S1 and S2 regular. Grade 4/6 ejection systolic murmur of left sternal border. ABDOMEN: Soft. EXTREMITIES: Bilateral dressing for the leg cellulitis. LABORATORY DATA: Hemoglobin and hematocrit 10.6 and 33.4, white count and platelet count are within normal limits. The SMA-7 is within normal limits except for BUN of 22. ASSESSMENT: 1. Bilateral leg cellulitis. 2. Mild aortic stenosis status post bioprosthetic aortic valve replacement for severe aortic insufficiency. 3. Anemia. 4. Hypertension. CONDITIONS: Continue Lopressor 50 mg twice a day, aspirin 81 mg once a day, Plavix 75 mg once a day, obtain 12-lead EKG now. If EKG is unremarkable, the patient will be cleared for skin grafting with acceptable cardiac risk with postoperative telemetry monitoring. Tobias Duggan MD
[2016-12-07] MEDS: Vitamins A & D Oint UD Foilpak TOP SCH ×2 (10:30→19:00)
[2016-12-07] MEDS: Saccharomyces Boulardi 250 mg Cap PO SCH ×2 (10:39→19:00)
[2016-12-07] MEDS ORDERED: Lactated Ringer's 1,000 ML IV ONE ×2 (14:30)
[2016-12-07] MEDS ORDERED: Propofol 10 mg/ml Inj (20 ML) ONE (15:01)
[2016-12-07] MEDS ORDERED: Lidocaine Hydrochloride 5 ML INJ ONE (15:01)
[2016-12-07] MEDS ORDERED: Mineral Oil Light Sterile 25 ml ONE (15:10)
[2016-12-07] MEDS: HYDROmorphone 0.5 mg/0.5 ml ISec IVP PRN ×2 (16:40→17:03)
[2016-12-07] MEDS ORDERED: HYDROmorphone 0.5 mg/0.5 ml ISec ONE (16:40)
--- NOTE | 2016-12-07 17:01 | PCM.SURG1 ---
Surgeon's Initial Post Op Note - Surgeon's Notes Surgeon: Dr. Velasquez Shop Clerk: Dr. Barrera PGY-2, Dr. Epps PGY-2 Type of Anesthesia: General LMA Pre-Operative Diagnosis: b/l leg ulcers, chronic Operative Findings: see operative report Post-Operative Diagnosis: see operative report Operation Performed: skin graft placement x2 Specimen/Specimens Removed: none Estimated Blood Loss: EBL {In ML}: 15 Blood Products Given: N/A Drains Used: No Drains, Dagoberto Amador Post-Op Condition: Good Date of Surgery/Procedure: 12/07/16 Time of Surgery/Procedure: 15:45
[2016-12-07] MEDS ORDERED: Oxycodone/Acetaminophen 5/325 mg Tab PO PRN (17:06)
[2016-12-07] MEDS: HYDROmorphone 1 mg/ml ISec IVP PRN (21:39)
--- NOTE | 2016-12-07 22:32 | PN ---
SUBJECTIVE: The patient denies any chest pain or shortness of breath. PHYSICAL EXAMINATION: VITAL SIGNS: Blood pressure 123/80, heart rate 74, temperature 98, respirations 20. HEENT: Pale conjunctivae. CHEST: Clear. HEART: S1, S2, regular. Grade 4/6 ejection systolic murmur over left sternal border. ABDOMEN: Soft. EXTREMITIES: Dressings applied to both lower extremities. LABORATORY DATA: Hemoglobin and hematocrit 10.3 and 32.8, white count and platelet count are within normal limits. Today's SMA-7 is entirely within normal limits. EKG revealed sinus rhythm with nonspecific lateral T-wave changes in I and aVL, it was read by the computer as ischemic; however, there is no change from initial admitting EKG and the patient is known by me to have normal coronary circulation on a cardiac catheterization a year ago. ASSESSMENT: 1. Bilateral leg cellulitis with gram-negative pseudomonas infection. The most recent wound culture is negative. 2. 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 3. Mild aortic stenosis. RECOMMENDATIONS: Continue current IV ceftazidime, continue Lopressor 50 mg twice a day, aspirin 80 mg once a day. The case was discussed with Dr. Velasquez, who is planning to operate this afternoon with skin grafting, and the patient can undergo this surgery from a cardiac point of view with postoperative telemetry monitoring. Tobias Duggan MD
[2016-12-08] MEDS: HYDROmorphone 1 mg/ml ISec IVP PRN ×3 (01:46→21:26)
--- NOTE | 2016-12-08 02:16 | OP ---
PROCEDURE DATE: 12/07/2016 PREOPERATIVE DIAGNOSIS: Bilateral leg ulcers. PROCEDURE CARRIED OUT: Debridement, split-thickness skin graft from right thigh to both ankles. SURGEON: Dr. Velasquez. CITY SOLICITOR: and Dr. Epps. INDICATIONS: This is an 81-year-old man with a history of peripheral vascular disease, ulcers, recalcitrant, previously diagnosed pseudomonas which postponed the ability for us to do the skin graft until this was eradicated. OPERATIVE FINDINGS: 1. There was fairly good granulation tissue, photographs are available. 2. We applied the skin graft in to 1 mesh to the area of both ankles with very good apposition, coverage of most of the wound. After this has been done secured to the skin with marvin and compressive dressing applied. BLOOD LOSS FOR PROCEDURE: Minimal, less than 25 mL. Royce Velasquez Jr., MD cc: Dr. Verdin.
[2016-12-08 06:52] LABS: BASO % 0.5 % (0.0-2.0); EOS # 0.6 K/uL (0.0-0.7); EOS % 6.6 % (0.0-4.0); HEMATOCRIT 32.3 % (35.0-51.0); LYMPH # 2.7 K/uL (1.0-4.3); LYMPH % 32.3 % (20.0-40.0); MEAN CELL VOLUME 72.9 fL (80.0-94.0); MEAN CORPUSCULAR HGB CONC 31.6 g/dL (33.0-37.0); MEAN PLATELET VOLUME 9.6 fL (7.2-11.7); MONO # 1.1 K/uL (0.0-0.8); RED CELL DISTRIBUTION WIDTH 27.1 % (11.5-14.5); WHITE BLOOD COUNT 8.5 K/uL (4.8-10.8)
[2016-12-08 06:57] LABS: CHLORIDE 101 mmol/L (98-107); POTASSIUM 4.7 mmol/L (3.6-5.2); SODIUM 136 mmol/L (132-148)
[2016-12-08 06:59] LABS: GFR AFRICAN-AMERICAN > 60
[2016-12-08 07:00] LABS: ALB/GLOB RATIO 0.8 (1.0-2.1); ALKALINE PHOSPHATASE 92 U/L (38-126); ALT/SGPT 36 U/L (21-72); AST/SGOT 33 U/L (17-59); BILIRUBIN,TOTAL 0.6 mg/dL (0.2-1.3); BLOOD UREA NITROGEN 18 mg/dL (9-20); CALCIUM 9.3 mg/dl (8.6-10.4); CARBON DIOXIDE 29 mmol/L (22-30); GLUCOSE,RANDOM 84 mg/dL (75-110); TOTAL PROTEIN 7.1 g/dL (6.3-8.3)
--- NOTE | 2016-12-08 09:22 | CP.PCM.PN ---
Subjective - Date & Time of Evaluation Date of Evaluation: 12/08/16 Time of Evaluation: 07:15 - Subjective Subjective: General Surgery Note Patient was seen and examined at bedside in no acute distress. Patient denies fever, chills, nausea, vomiting, chest pain, dizziness. Patient reports that he is doing well and has no new complaints. Objective - Vital Signs/Intake and Output Vital Signs (last 24 hours): Temp Pulse Resp BP Pulse Ox 98.7 F 88 20 107/67 96 12/08/16 08:02 12/08/16 08:02 12/08/16 08:02 12/08/16 08:02 12/08/16 04:00 Intake and Output: 12/08/16 12/08/16 06:59 18:59 Intake Total 480 Output Total 375 Balance 105 - Medications Medications: Current Medications Aspirin (Aspirin Chewable) 81 mg PO DAILY [facility] Clopidogrel Bisulfate (Plavix) 75 mg PO DAILY [facility] Docusate Sodium (Colace) 100 mg PO TID [facility] Enoxaparin Sodium (Lovenox) 40 mg SC DAILY [facility] Last Admin: 12/06/16 09:44 Dose: 40 mg Famotidine (Pepcid) 20 mg PO BID [facility] Gabapentin (Neurontin) 100 mg PO BID [facility] Hydromorphone HCl (Dilaudid) 0.5 mg IVP Q15M PRN PRN Reason: Pain, severe (8-10) Last Admin: 12/07/16 17:03 Dose: 0.5 mg Hydromorphone HCl (Dilaudid) 1 mg IVP Q4H PRN PRN Reason: Pain, moderate (4-7) Last Admin: 12/08/16 01:46 Dose: 1 mg Ceftazidime/Avibactam 2.5 gm/ (Sodium Chloride) 100 mls @ 50 mls/hr IV Q8H [facility] Last Admin: 12/08/16 07:05 Dose: 50 mls/hr Lactulose (Enulose) 20 gm PO BID [facility] Metoprolol Tartrate (Lopressor) 50 mg PO BID [facility] Saccharomyces Boulardii (Florastor) 250 mg PO BID [facility] Vitamin A (Vitamin A & D Oint Ud Foilpak) 1 ea TOP BID [facility] - Labs Labs: 12/08/16 06:16 12/08/16 06:16 PT 13.5 SECONDS (9.7-12.2) H 12/07/16 06:44 INR 1.2 12/07/16 06:44 APTT 30 SECONDS (21-34) 12/07/16 06:44 - Constitutional Appears: Well, No Acute Distress - Head Exam Head Exam: ATRAUMATIC, NORMAL INSPECTION - Eye Exam Eye Exam: EOMI, Normal appearance - Respiratory Exam Respiratory Exam: Clear to Ausculation Bilateral, NORMAL BREATHING PATTERN - Cardiovascular Exam Cardiovascular Exam: REGULAR RHYTHM, +S1, +S2, Murmur - GI/Abdominal Exam GI & Abdominal Exam: Soft, Normal Bowel Sounds - Extremities Exam Additional comments: B/L leg wrapping intact, dry and clean Right upper thigh dressing clean, dry and intact - Neurological Exam Neurological Exam: Alert, Awake, Oriented x3 - Psychiatric Exam Psychiatric exam: Normal Affect, Normal Mood - Skin Skin Exam: Dry, Normal Color, Warm Assessment and Plan - Assessment and Plan (Free Text) Assessment: 81M s/p b/l leg debridement POD 22 and s/p bilateral LE skin graft POD 1 Plan: - Stable - Right upper thigh dressing changed today - B/L ankle dressings CDI -Further recommendation per Dr. Ron Mancera, PGY-1
--- NOTE | 2016-12-08 10:54 | CP.PCM.PN ---
<Aryan Bolton - Last Filed: 12/08/16 17:57> Subjective - Date & Time of Evaluation Date of Evaluation: 12/08/16 Time of Evaluation: 10:00 - Subjective Subjective: Resident Progress Note for Dr. Edwards Patient seen and examined at bedside. No acute events reported overnight. Patient resting in bed comfortably. He reports no complaints. Denies having headache, fever, chills, shortness of breath, chest pain, nausea, vomiting, or diarrhea. Objective - Vital Signs/Intake and Output Vital Signs (last 24 hours): Temp Pulse Resp BP Pulse Ox 98.7 F 88 20 107/67 96 12/08/16 08:02 12/08/16 08:02 12/08/16 08:02 12/08/16 08:02 12/08/16 04:00 Intake and Output: 12/08/16 12/08/16 06:59 18:59 Intake Total 480 Output Total 375 Balance 105 - Medications Medications: Current Medications Aspirin (Aspirin Chewable) 81 mg PO DAILY [facility] Clopidogrel Bisulfate (Plavix) 75 mg PO DAILY [facility] Docusate Sodium (Colace) 100 mg PO TID [facility] Enoxaparin Sodium (Lovenox) 40 mg SC DAILY [facility] Last Admin: 12/06/16 09:44 Dose: 40 mg Famotidine (Pepcid) 20 mg PO BID [facility] Gabapentin (Neurontin) 100 mg PO BID [facility] Hydromorphone HCl (Dilaudid) 0.5 mg IVP Q15M PRN PRN Reason: Pain, severe (8-10) Last Admin: 12/07/16 17:03 Dose: 0.5 mg Hydromorphone HCl (Dilaudid) 1 mg IVP Q4H PRN PRN Reason: Pain, moderate (4-7) Last Admin: 12/08/16 10:00 Dose: 1 mg Ceftazidime/Avibactam 2.5 gm/ (Sodium Chloride) 100 mls @ 50 mls/hr IV Q8H [facility] Last Admin: 12/08/16 07:05 Dose: 50 mls/hr Lactulose (Enulose) 20 gm PO BID [facility] Last Admin: 12/08/16 09:59 Dose: 20 gm Metoprolol Tartrate (Lopressor) 50 mg PO BID [facility] Saccharomyces Boulardii (Florastor) 250 mg PO BID [facility] Vitamin A (Vitamin A & D Oint Ud Foilpak) 1 ea TOP BID [facility] - Labs Labs: 12/08/16 06:16 12/08/16 06:16 PT 13.5 SECONDS (9.7-12.2) H 12/07/16 06:44 INR 1.2 12/07/16 06:44 APTT 30 SECONDS (21-34) 12/07/16 06:44 - Constitutional Appears: Non-toxic, No Acute Distress - Head Exam Head Exam: ATRAUMATIC, NORMAL INSPECTION - Eye Exam Eye Exam: Normal appearance - ENT Exam ENT Exam: Mucous Membranes Moist - Neck Exam Neck Exam: Normal Inspection - Respiratory Exam Respiratory Exam: Clear to Ausculation Bilateral, NORMAL BREATHING PATTERN. absent: Respiratory Distress - Cardiovascular Exam Cardiovascular Exam: REGULAR RHYTHM, +S1, +S2. absent: Murmur - GI/Abdominal Exam GI & Abdominal Exam: Soft, Normal Bowel Sounds. absent: Tenderness - Extremities Exam Extremities Exam: Full ROM, Normal Capillary Refill. absent: Joint Swelling, Pedal Edema Additional comments: Right anticubital PICC LINE in place Bilateral lower extremity wound dressing clean, dry and intact - Neurological Exam Neurological Exam: Alert, Awake, Oriented x3 - Psychiatric Exam Psychiatric exam: Normal Affect, Normal Mood - Skin Skin Exam: Normal Color, Warm Assessment and Plan - Assessment and Plan (Free Text) Assessment: 1. Bilateral Leg ulcers - S/P bilateral LE Skin graft POD #1 - 12/03 bilateral wound cultures: Alisha Parapsilosis - 11/26 bilateral wound cultures: Pseudomonas aeruginosa, amikacin sensitive - Dr. Allison consulted: Continue antibiotics: Avycaz 2.5gr IV Q8 (added on 11/29) - Continue Florastor 250 mg PO BID - Acetaminophen 975 mg PO Q8 prn for pain - Continue topical Vitamin A for wound. f/u with surgery for Q2 dressing changes - Started on Percocet 5/325 Q6h for pain 2. Anemia - Hgb 10.2 today - continue Feosol 325mg PO daily - continue to monitor CBC daily 3. Mild aortic stenosis, s/p bioprosthetic aortic valve replacement - 11/15 EKG: sinus rhythm with premature atrial complexes, 79 bpm, left atrial enlargement, normal intervals. - Dr. Duggan consulted: continue ASA 81 mg PO daily, continue Plavix 75 mg PO daily, continue Lovenox 40 mg SC daily (added on 11/29) - Pending cardiac clearance for procedure, per Dr. Duggan pt may proceed with acceptable cardiac risk if EKG is unremarkable 4. HTN - continue Lopressor 50 mg PO BID. 5. Neuropathy - continue Neurontin 100mg PO BID 6. Constipation - continue Colace 100 mg PO TID - continue Lactulose 20 gr PO BID 7. Prophylaxis - Pepcid 20mg PO BID - Florastor 250 mg PO BID - Lovenox and Plavix Disposition: Patient will stay in the hospital for 11 more days of IV antibiotic. Patient unable to afford outpatient option. Case discussed with Dr. Edwards <Andrea Edwards - Last Filed: 12/08/16 18:58> Objective - Vital Signs/Intake and Output Vital Signs (last 24 hours): Temp Pulse Resp BP Pulse Ox 98.2 F 83 20 132/67 98 12/08/16 15:56 12/08/16 15:56 12/08/16 15:56 12/08/16 15:56 12/08/16 15:56 Intake and Output: 12/08/16 12/08/16 06:59 18:59 Intake Total 480 560 Output Total 375 Balance 105 560 - Medications Medications: Current Medications Aspirin (Aspirin Chewable) 81 mg PO DAILY [facility] Last Admin: 12/08/16 10:57 Dose: 81 mg Clopidogrel Bisulfate (Plavix) 75 mg PO DAILY [facility] Last Admin: 12/08/16 10:57 Dose: 75 mg Docusate Sodium (Colace) 100 mg PO TID [facility] Last Admin: 12/08/16 18:07 Dose: 100 mg Enoxaparin Sodium (Lovenox) 40 mg SC DAILY [facility] Last Admin: 12/06/16 09:44 Dose: 40 mg Famotidine (Pepcid) 20 mg PO BID [facility] Last Admin: 12/08/16 18:18 Dose: 20 mg Ferrous Sulfate (Feosol) 325 mg PO DAILY [facility] Gabapentin (Neurontin) 100 mg PO BID [facility] Last Admin: 12/08/16 18:20 Dose: 100 mg Hydromorphone HCl (Dilaudid) 0.5 mg IVP Q15M PRN PRN Reason: Pain, severe (8-10) Last Admin: 12/07/16 17:03 Dose: 0.5 mg Hydromorphone HCl (Dilaudid) 1 mg IVP Q4H PRN PRN Reason: Pain, moderate (4-7) Last Admin: 12/08/16 10:00 Dose: 1 mg Ceftazidime/Avibactam 2.5 gm/ (Sodium Chloride) 100 mls @ 50 mls/hr IV Q8H [facility] Last Admin: 12/08/16 14:48 Dose: 50 mls/hr Lactulose (Enulose) 20 gm PO BID [facility] Last Admin: 12/08/16 18:08 Dose: 20 gm Metoprolol Tartrate (Lopressor) 50 mg PO BID [facility] Last Admin: 12/08/16 18:19 Dose: 50 mg Saccharomyces Boulardii (Florastor) 250 mg PO BID [facility] Last Admin: 12/08/16 18:19 Dose: 250 mg Vitamin A (Vitamin A & D Oint Ud Foilpak) 1 ea TOP BID [facility] Last Admin: 12/08/16 18:18 Dose: 1 ea - Labs Labs: 12/08/16 06:16 12/08/16 06:16 PT 13.5 SECONDS (9.7-12.2) H 12/07/16 06:44 INR 1.2 12/07/16 06:44 APTT 30 SECONDS (21-34) 12/07/16 06:44 Attending/Attestation - Attestation I have personally seen and examined this patient.: Yes I have fully participated in the care of the patient.: Yes I have reviewed all pertinent clinical information, including history, physical exam and plan: Yes Notes (Text): 12/08/16 18:56 Patient was seen and examined at 10:45 AM 12/08/16 667B Exam, Assessment and Plan were thoroughly gone over with the Boots And Shoes Supervisor. I spoke with Foam Machine Operator Randi and unfortunately home antibiotic infusion could not be arranged and therefore patient will be staying in-house for 11 more days to complete treatment. Andrea Edwards D.O.
[2016-12-08] MEDS: Vitamins A & D Oint UD Foilpak TOP SCH ×2 (10:55→18:18)
[2016-12-08] MEDS: Saccharomyces Boulardi 250 mg Cap PO SCH ×2 (10:57→18:19)
--- NOTE | 2016-12-08 19:35 | CP.PCM.PN ---
Subjective - Date & Time of Evaluation Date of Evaluation: 12/08/16 Time of Evaluation: 10:00 - Subjective Subjective: s/p skin graft iv rx in progress Objective - Vital Signs/Intake and Output Vital Signs (last 24 hours): Temp Pulse Resp BP Pulse Ox 98.2 F 83 20 132/67 98 12/08/16 15:56 12/08/16 15:56 12/08/16 15:56 12/08/16 15:56 12/08/16 15:56 Intake and Output: 12/08/16 12/09/16 18:59 06:59 Intake Total 560 Balance 560 - Medications Medications: Current Medications Aspirin (Aspirin Chewable) 81 mg PO DAILY [facility] Last Admin: 12/08/16 10:57 Dose: 81 mg Clopidogrel Bisulfate (Plavix) 75 mg PO DAILY [facility] Last Admin: 12/08/16 10:57 Dose: 75 mg Docusate Sodium (Colace) 100 mg PO TID [facility] Last Admin: 12/08/16 18:07 Dose: 100 mg Enoxaparin Sodium (Lovenox) 40 mg SC DAILY [facility] Last Admin: 12/06/16 09:44 Dose: 40 mg Famotidine (Pepcid) 20 mg PO BID [facility] Last Admin: 12/08/16 18:18 Dose: 20 mg Ferrous Sulfate (Feosol) 325 mg PO DAILY [facility] Gabapentin (Neurontin) 100 mg PO BID [facility] Last Admin: 12/08/16 18:20 Dose: 100 mg Hydromorphone HCl (Dilaudid) 0.5 mg IVP Q15M PRN PRN Reason: Pain, severe (8-10) Last Admin: 12/07/16 17:03 Dose: 0.5 mg Hydromorphone HCl (Dilaudid) 1 mg IVP Q4H PRN PRN Reason: Pain, moderate (4-7) Last Admin: 12/08/16 10:00 Dose: 1 mg Ceftazidime/Avibactam 2.5 gm/ (Sodium Chloride) 100 mls @ 50 mls/hr IV Q8H [facility] Last Admin: 12/08/16 14:48 Dose: 50 mls/hr Lactulose (Enulose) 20 gm PO BID [facility] Last Admin: 12/08/16 18:08 Dose: 20 gm Metoprolol Tartrate (Lopressor) 50 mg PO BID [facility] Last Admin: 12/08/16 18:19 Dose: 50 mg Saccharomyces Boulardii (Florastor) 250 mg PO BID [facility] Last Admin: 12/08/16 18:19 Dose: 250 mg Vitamin A (Vitamin A & D Oint Ud Foilpak) 1 ea TOP BID [facility] Last Admin: 12/08/16 18:18 Dose: 1 ea - Labs Labs: 12/08/16 06:16 12/08/16 06:16 PT 13.5 SECONDS (9.7-12.2) H 12/07/16 06:44 INR 1.2 12/07/16 06:44 APTT 30 SECONDS (21-34) 12/07/16 06:44 - Constitutional Appears: Non-toxic, Chronically Ill - Head Exam Head Exam: NORMOCEPHALIC - Eye Exam Eye Exam: PERRL - ENT Exam ENT Exam: Mucous Membranes Dry - Neck Exam Neck Exam: absent: Lymphadenopathy - Respiratory Exam Respiratory Exam: Decreased Breath Sounds - Cardiovascular Exam Cardiovascular Exam: REGULAR RHYTHM - GI/Abdominal Exam GI & Abdominal Exam: Distended - Rectal Exam Rectal Exam: Deferred - Exam Exam: NORMAL INSPECTION Assessment and Plan (1) Cellulitis Status: Acute (2) Dehydration Status: Acute
--- NOTE | 2016-12-08 20:03 | PN ---
SUBJECTIVE: The patient underwent bilateral split-thickness skin graft to lower extremity wounds. He denies any chest pain or shortness of breath. PHYSICAL EXAMINATION: VITAL SIGNS: Blood pressure 103/66, heart rate 72, temperature 98.7, respirations 20. HEENT: Pale conjunctivae. CHEST: Clear. HEART: S1, S2 regular. Grade 4/6 ejection systolic murmur over left sternal border. EXTREMITIES: Dressings applied to both grafter wounds. LABORATORY DATA: Hemoglobin and hematocrit 10.2 and 32.3. White count and platelet count are within normal limits. Today's SMA-7 is within normal limits. ASSESSMENT: 1. Status post bilateral lower extremity skin grafting. 2. Anemia. 3. Status post bioprosthetic aortic valve replacement. 4. Mild aortic stenosis. RECOMMENDATIONS: Continue aspirin 81 mg once a day, ceftazidime 2.5 g hours, continue IV p.r.n. Dilaudid, continue Lopressor 50 mg twice a day orally, Plavix 75 mg once a day. Obtain 12-lead EKG. 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 Tobias Duggan MD
[2016-12-09] MEDS: HYDROmorphone 1 mg/ml ISec IVP PRN ×2 (06:15→17:09)
[2016-12-09 06:26] LABS: BASO # 0.1 K/uL (0.0-0.2); BASO % 0.7 % (0.0-2.0); EOS # 0.8 K/uL (0.0-0.7); EOS % 10.7 % (0.0-4.0); HEMATOCRIT 32.4 % (35.0-51.0); LYMPH # 2.6 K/uL (1.0-4.3); LYMPH % 33.3 % (20.0-40.0); MEAN CORPUSCULAR HEMOGLOBIN 23.3 pg (27.0-31.0); MEAN CORPUSCULAR HGB CONC 31.9 g/dL (33.0-37.0); MEAN PLATELET VOLUME 9.5 fL (7.2-11.7); MONO # 0.9 K/uL (0.0-0.8); WHITE BLOOD COUNT 7.7 K/uL (4.8-10.8)
[2016-12-09 06:34] LABS: CHLORIDE 101 mmol/L (98-107); POTASSIUM 4.5 mmol/L (3.6-5.2); SODIUM 136 mmol/L (132-148)
[2016-12-09 06:37] LABS: BLOOD UREA NITROGEN 22 mg/dL (9-20); CARBON DIOXIDE 28 mmol/L (22-30); GFR AFRICAN-AMERICAN > 60
[2016-12-09 06:38] LABS: CALCIUM 9.3 mg/dl (8.6-10.4); GLUCOSE,RANDOM 94 mg/dL (75-110)
--- NOTE | 2016-12-09 08:29 | CP.PCM.PN ---
<Parth Christian S - Last Filed: 12/09/16 14:01> Subjective - Date & Time of Evaluation Date of Evaluation: 12/09/16 Time of Evaluation: 08:28 - Subjective Subjective: Medicine Note for Dr. Verdin's Service Pt seen and examined at bedside. S/P b/l leg debridement POD 23 and s/p bilateral LE skin graft POD 2. Patient will be staying in hospital until 12/20 for complete IV abx treatments. Today, he states that he is feeling well and does not have any acute complaints. Denies having headache, fever, chills, shortness of breath, chest pain, nausea, vomiting, or diarrhea. Objective - Vital Signs/Intake and Output Vital Signs (last 24 hours): Temp Pulse Resp BP Pulse Ox 97.6 F 64 20 143/69 98 12/09/16 04:50 12/09/16 04:50 12/09/16 04:50 12/09/16 04:50 12/09/16 00:00 - Medications Medications: Current Medications Aspirin (Aspirin Chewable) 81 mg PO DAILY [facility] Last Admin: 12/08/16 10:57 Dose: 81 mg Clopidogrel Bisulfate (Plavix) 75 mg PO DAILY [facility] Last Admin: 12/08/16 10:57 Dose: 75 mg Docusate Sodium (Colace) 100 mg PO TID [facility] Last Admin: 12/08/16 18:07 Dose: 100 mg Enoxaparin Sodium (Lovenox) 40 mg SC DAILY [facility] Last Admin: 12/06/16 09:44 Dose: 40 mg Famotidine (Pepcid) 20 mg PO BID [facility] Last Admin: 12/08/16 18:18 Dose: 20 mg Ferrous Sulfate (Feosol) 325 mg PO DAILY [facility] Gabapentin (Neurontin) 100 mg PO BID [facility] Last Admin: 12/08/16 18:20 Dose: 100 mg Hydromorphone HCl (Dilaudid) 0.5 mg IVP Q15M PRN PRN Reason: Pain, severe (8-10) Last Admin: 12/07/16 17:03 Dose: 0.5 mg Hydromorphone HCl (Dilaudid) 1 mg IVP Q4H PRN PRN Reason: Pain, moderate (4-7) Last Admin: 12/09/16 06:15 Dose: 1 mg Ceftazidime/Avibactam 2.5 gm/ (Sodium Chloride) 100 mls @ 50 mls/hr IV Q8H COUNT [facility] Last Admin: 12/09/16 07:44 Dose: 50 mls/hr Lactulose (Enulose) 20 gm PO BID COUNT [facility] Last Admin: 12/08/16 18:08 Dose: 20 gm Metoprolol Tartrate (Lopressor) 50 mg PO BID COUNT [facility] Last Admin: 12/08/16 18:19 Dose: 50 mg Saccharomyces Boulardii (Florastor) 250 mg PO BID COUNT [facility] Last Admin: 12/08/16 18:19 Dose: 250 mg Vitamin A (Vitamin A & D Oint Ud Foilpak) 1 ea TOP BID COUNT [facility]CLUD[facility] Last Admin: 12/08/16 18:18 Dose: 1 ea - Labs Labs: 12/09/16 06:07 12/09/16 06:07 PT 13.5 SECONDS (9.7-12.2) H 12/07/16 06:44 INR 1.2 12/07/16 06:44 APTT 30 SECONDS (21-34) 12/07/16 06:44 - Constitutional Appears: No Acute Distress - Head Exam Head Exam: ATRAUMATIC - Eye Exam Eye Exam: EOMI, Normal appearance - ENT Exam ENT Exam: Mucous Membranes Moist - Respiratory Exam Respiratory Exam: Clear to Ausculation Bilateral, NORMAL BREATHING PATTERN - Cardiovascular Exam Cardiovascular Exam: REGULAR RHYTHM - GI/Abdominal Exam GI & Abdominal Exam: Soft. absent: Tenderness - Extremities Exam Additional comments: wound dressing is c/d/i - Neurological Exam Neurological Exam: Alert, Awake, Oriented x3 - Psychiatric Exam Psychiatric exam: Normal Affect, Normal Mood Assessment and Plan - Assessment and Plan (Free Text) Plan: Patient remains clinically stable, afebrile and no acute complaints. He will continue to be monitored throughout his hospital stay. 1. Bilateral Leg ulcers - S/P bilateral LE Skin graft POD 2 - S/P bilateral leg debridement POD 23 - 12/03 bilateral wound cultures: Alisha Parapsilosis - 11/26 bilateral wound cultures: Pseudomonas aeruginosa, amikacin sensitive - Dr. Allison consulted: Continue antibiotics: Avycaz 2.5gr IV Q8 (added on 11/29) Repeat labs 1-2 times weekly to monitor for side effects - Continue Florastor 250 mg PO BID - Acetaminophen 975 mg PO Q8 prn for pain - Continue topical Vitamin A for wound - Surgery will do Q2 dressing changes - Percocet 5/325 Q6h for pain 2. Anemia- stable - Hgb 10.3 today - continue Feosol 325mg PO daily - continue to monitor CBC daily 3. Mild aortic stenosis, s/p bioprosthetic aortic valve replacement - 11/15 EKG: sinus rhythm with premature atrial complexes, 79 bpm, left atrial enlargement, normal intervals. - Dr. Duggan consulted: continue ASA 81 mg PO daily, continue Plavix 75 mg PO daily, continue Lovenox 40 mg SC daily (added on 11/29) - Per Dr. Duggan pt may proceed with acceptable cardiac risk if EKG is unremarkable 4. HTN - continue Lopressor 50 mg PO BID. 5. Neuropathy - continue Neurontin 100mg PO BID 6. Constipation - continue Colace 100 mg PO TID - continue Lactulose 20 gr PO BID 7. Prophylaxis - Pepcid 20mg PO BID - Florastor 250 mg PO BID - Lovenox and Plavix 8. Disposition - Patient will stay in the hospital for 11 more days of IV antibiotic. Patient unable to afford outpatient option. Case discussed with Dr. Edwards <Andrea Edwards - Last Filed: 12/09/16 17:36> Objective - Vital Signs/Intake and Output Vital Signs (last 24 hours): Temp Pulse Resp BP Pulse Ox 98.2 F 78 18 164/78 H 100 12/09/16 15:39 12/09/16 15:39 12/09/16 15:39 12/09/16 15:39 12/09/16 15:39 Intake and Output: 12/09/16 12/09/16 06:59 18:59 Intake Total 550 Balance 550 - Medications Medications: Current Medications Aspirin (Aspirin Chewable) 81 mg PO DAILY COUNT [facility]CLUD[facility] Last Admin: 12/09/16 09:08 Dose: 81 mg Clopidogrel Bisulfate (Plavix) 75 mg PO DAILY COUNT [facility] Last Admin: 12/09/16 09:08 Dose: 75 mg Docusate Sodium (Colace) 100 mg PO TID COUNT [facility] Last Admin: 12/09/16 17:08 Dose: 100 mg Enoxaparin Sodium (Lovenox) 40 mg SC DAILY COUNT [facility] Last Admin: 12/06/16 09:44 Dose: 40 mg Famotidine (Pepcid) 20 mg PO BID COUNT [facility] Last Admin: 12/09/16 17:08 Dose: 20 mg Ferrous Sulfate (Feosol) 325 mg PO DAILY COUNT [facility] Last Admin: 12/09/16 09:13 Dose: 325 mg Gabapentin (Neurontin) 100 mg PO BID COUNT [facility] Last Admin: 12/09/16 17:08 Dose: 100 mg Hydromorphone HCl (Dilaudid) 0.5 mg IVP Q15M PRN PRN Reason: Pain, severe (8-10) Last Admin: 12/07/16 17:03 Dose: 0.5 mg Hydromorphone HCl (Dilaudid) 1 mg IVP Q4H PRN PRN Reason: Pain, moderate (4-7) Last Admin: 12/09/16 17:09 Dose: 1 mg Ceftazidime/Avibactam 2.5 gm/ (Sodium Chloride) 100 mls @ 50 mls/hr IV Q8H COUNT [facility]CLUDES [facility] Last Admin: 12/09/16 14:50 Dose: 50 mls/hr Lactulose (Enulose) 20 gm PO BID COUNT [facility] Last Admin: 12/09/16 09:08 Dose: 20 gm Metoprolol Tartrate (Lopressor) 50 mg PO BID COUNT [facility] Last Admin: 12/09/16 17:08 Dose: 50 mg Saccharomyces Boulardii (Florastor) 250 mg PO BID COUNT [facility] Last Admin: 12/09/16 17:09 Dose: 250 mg Vitamin A (Vitamin A & D Oint Ud Foilpak) 1 ea TOP BID COUNT [facility]CLUD[facility] Last Admin: 12/09/16 17:09 Dose: 1 ea - Labs Labs: 12/09/16 06:07 12/09/16 06:07 PT 13.5 SECONDS (9.7-12.2) H 12/07/16 06:44 INR 1.2 12/07/16 06:44 APTT 30 SECONDS (21-34) 12/07/16 06:44 Attending/Attestation - Attestation I have personally seen and examined this patient.: Yes I have fully participated in the care of the patient.: Yes I have reviewed all pertinent clinical information, including history, physical exam and plan: Yes Notes (Text): 12/09/16 17:[address] Verdin Exam, Assessment and Plan discussed with the resident. Assessments: Bilateral Leg Ulcers S/P Skin Grafts: Patient will be treated with Ceftazidin 2.5 gm IV Q8H through 12/18/16 as an in-patient as his insurance would not approve outpatient home treatment. Anemia likely secondary to chronic disease Mild Aortic Stenosis S/P Bioprosthetic Aortic Valve Replacement HTN Neuropathy Constipation PVD CHF HTN COPD Hx CAD Andrea Edwards D.O.
[2016-12-09] MEDS: Saccharomyces Boulardi 250 mg Cap PO SCH ×2 (09:08→17:09)
[2016-12-09] MEDS: Vitamins A & D Oint UD Foilpak TOP SCH ×2 (09:09→17:09)
--- NOTE | 2016-12-09 10:03 | CP.PCM.PN ---
Subjective - Date & Time of Evaluation Date of Evaluation: 12/09/16 Time of Evaluation: 10:03 - Subjective Subjective: General Surgery Progress Note for Dr. Velasquez Patient was seen and examined at bedside. No acute event overnight. He is s/p bilateral LE skin graft POD 2. Patient reports adoption social worker explained to him yesterday that he was not going to be discharged due to cost of home treatment so he will remain in hospital for now. He is doing well and has no new complaints. Objective - Vital Signs/Intake and Output Vital Signs (last 24 hours): Temp Pulse Resp BP Pulse Ox 97.6 F 64 20 143/69 98 12/09/16 04:50 12/09/16 04:50 12/09/16 04:50 12/09/16 04:50 12/09/16 00:00 - Medications Medications: Current Medications Aspirin (Aspirin Chewable) 81 mg PO DAILY [facility] Last Admin: 12/09/16 09:08 Dose: 81 mg Clopidogrel Bisulfate (Plavix) 75 mg PO DAILY [facility] Last Admin: 12/09/16 09:08 Dose: 75 mg Docusate Sodium (Colace) 100 mg PO TID [facility] Last Admin: 12/09/16 09:08 Dose: 100 mg Enoxaparin Sodium (Lovenox) 40 mg SC DAILY [facility] Last Admin: 12/06/16 09:44 Dose: 40 mg Famotidine (Pepcid) 20 mg PO BID [facility] Last Admin: 12/09/16 09:08 Dose: 20 mg Ferrous Sulfate (Feosol) 325 mg PO DAILY [facility] Last Admin: 12/09/16 09:13 Dose: 325 mg Gabapentin (Neurontin) 100 mg PO BID [facility] Last Admin: 12/09/16 09:08 Dose: 100 mg Hydromorphone HCl (Dilaudid) 0.5 mg IVP Q15M PRN PRN Reason: Pain, severe (8-10) Last Admin: 12/07/16 17:03 Dose: 0.5 mg Hydromorphone HCl (Dilaudid) 1 mg IVP Q4H PRN PRN Reason: Pain, moderate (4-7) Last Admin: 12/09/16 06:15 Dose: 1 mg Ceftazidime/Avibactam 2.5 gm/ (Sodium Chloride) 100 mls @ 50 mls/hr IV Q8H [facility] Last Admin: 12/09/16 07:44 Dose: 50 mls/hr Lactulose (Enulose) 20 gm PO BID [facility] Last Admin: 12/09/16 09:08 Dose: 20 gm Metoprolol Tartrate (Lopressor) 50 mg PO BID [facility] Last Admin: 12/09/16 09:14 Dose: 50 mg Saccharomyces Boulardii (Florastor) 250 mg PO BID [facility] Last Admin: 12/09/16 09:08 Dose: 250 mg Vitamin A (Vitamin A & D Oint Ud Foilpak) 1 ea TOP BID [facility] Last Admin: 12/09/16 09:09 Dose: 1 ea - Labs Labs: 12/09/16 06:07 12/09/16 06:07 PT 13.5 SECONDS (9.7-12.2) H 12/07/16 06:44 INR 1.2 12/07/16 06:44 APTT 30 SECONDS (21-34) 12/07/16 06:44 - Constitutional Appears: No Acute Distress, Younger Than Stated Age - Eye Exam Eye Exam: Normal appearance - ENT Exam ENT Exam: Mucous Membranes Moist - Respiratory Exam Respiratory Exam: NORMAL BREATHING PATTERN - Cardiovascular Exam Cardiovascular Exam: REGULAR RHYTHM - Extremities Exam Additional comments: Bilateral leg wrapping intact, dry and clean Right upper thigh dressing clean, dry and intact - Neurological Exam Neurological Exam: Alert, Awake, Oriented x3 - Psychiatric Exam Psychiatric exam: Normal Affect, Normal Mood - Skin Skin Exam: Dry, Warm Assessment and Plan - Assessment and Plan (Free Text) Plan: 81M s/p b/l leg debridement POD 23 and s/p bilateral LE skin graft POD 2 - Stable - Right upper thigh NOT to be changed - B/L ankle dressings clean/dry/intact - Further recommendation per Dr. Ron Perkins PGY1
--- NOTE | 2016-12-09 20:51 | PN ---
SUBJECTIVE: The patient denies any chest pain. No reported arrhythmia. PHYSICAL EXAMINATION: VITAL SIGNS: Blood pressure 146/74, heart rate 74, temperature 97.6, respirations 18. HEENT: Pale conjunctivae. CHEST: Clear. HEART: S1 and S2 regular. Grade 4/6 ejection systolic murmur over left sternal border. ABDOMEN: Soft. EXTREMITIES: Dressings applied to bilateral grafted lower extremities. LABORATORY DATA: Hemoglobin and hematocrit 10.3 and 32.4. White count and platelet count are within normal limits. Today's SMA-7 is within normal limits except for BUN of 22. ASSESSMENT: 1. Status post skin grafting of lower extremity wounds. 2. Mild aortic stenosis. 3. 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 4. Anemia. RECOMMENDATIONS: I did review the postoperative EKG that was performed yesterday and revealed sinus rhythm with T-wave inversion in leads I and aVL, no difference from previous EKGs. Continue current aspirin, subcutaneous Lovenox, Lopressor, Plavix, and intravenous ceftazidime. Discontinue telemetry. Tobias Duggan MD
[2016-12-10] MEDS: HYDROmorphone 1 mg/ml ISec IVP PRN (00:19)
--- NOTE | 2016-12-10 07:50 | CP.PCM.PN ---
<Parth Christian S - Last Filed: 12/10/16 10:02> Subjective - Date & Time of Evaluation Date of Evaluation: 12/10/16 Time of Evaluation: 07:50 - Subjective Subjective: Medicine Note for Dr. Verdin's Service Pt seen and examined at bedside. S/P b/l leg debridement POD 24 and s/p bilateral LE skin graft POD 3. Patient will be staying in hospital until 12/20 for complete IV abx treatments. He states that he is feeling well and does not have any acute complaints. Denies having headache, fever, chills, shortness of breath, chest pain, nausea, vomiting, or diarrhea. No acute events overnight as per nursing staff. Objective - Vital Signs/Intake and Output Vital Signs (last 24 hours): Temp Pulse Resp BP Pulse Ox 98.1 F 66 20 123/67 100 12/09/16 23:35 12/09/16 23:35 12/09/16 23:35 12/09/16 23:35 12/09/16 23:35 - Medications Medications: Current Medications Aspirin (Aspirin Chewable) 81 mg PO DAILY [facility] Last Admin: 12/09/16 09:08 Dose: 81 mg Clopidogrel Bisulfate (Plavix) 75 mg PO DAILY [facility] Last Admin: 12/09/16 09:08 Dose: 75 mg Docusate Sodium (Colace) 100 mg PO TID [facility] Last Admin: 12/09/16 17:08 Dose: 100 mg Enoxaparin Sodium (Lovenox) 40 mg SC DAILY [facility] Last Admin: 12/06/16 09:44 Dose: 40 mg Famotidine (Pepcid) 20 mg PO BID [facility] Last Admin: 12/09/16 17:08 Dose: 20 mg Ferrous Sulfate (Feosol) 325 mg PO DAILY [facility] Last Admin: 12/09/16 09:13 Dose: 325 mg Gabapentin (Neurontin) 100 mg PO BID [facility] Last Admin: 12/09/16 17:08 Dose: 100 mg Hydromorphone HCl (Dilaudid) 0.5 mg IVP Q15M PRN PRN Reason: Pain, severe (8-10) Last Admin: 12/07/16 17:03 Dose: 0.5 mg Hydromorphone HCl (Dilaudid) 1 mg IVP Q4H PRN PRN Reason: Pain, moderate (4-7) Last Admin: 12/10/16 00:19 Dose: 1 mg Ceftazidime/Avibactam 2.5 gm/ (Sodium Chloride) 100 mls @ 50 mls/hr IV Q8H [facility] Last Admin: 12/10/16 06:52 Dose: 50 mls/hr Lactulose (Enulose) 20 gm PO BID [facility] Last Admin: 12/09/16 18:00 Dose: 20 gm Metoprolol Tartrate (Lopressor) 50 mg PO BID [facility] Last Admin: 12/09/16 17:08 Dose: 50 mg Saccharomyces Boulardii (Florastor) 250 mg PO BID [facility] Last Admin: 12/09/16 17:09 Dose: 250 mg Vitamin A (Vitamin A & D Oint Ud Foilpak) 1 ea TOP BID [facility] Last Admin: 12/09/16 17:09 Dose: 1 ea - Labs Labs: 12/09/16 06:07 12/09/16 06:07 PT 13.5 SECONDS (9.7-12.2) H 12/07/16 06:44 INR 1.2 12/07/16 06:44 APTT 30 SECONDS (21-34) 12/07/16 06:44 - Constitutional Appears: No Acute Distress - Head Exam Head Exam: ATRAUMATIC, NORMAL INSPECTION - Eye Exam Eye Exam: EOMI, Normal appearance - ENT Exam ENT Exam: Mucous Membranes Moist - Respiratory Exam Respiratory Exam: Clear to Ausculation Bilateral, NORMAL BREATHING PATTERN - Cardiovascular Exam Cardiovascular Exam: REGULAR RHYTHM - GI/Abdominal Exam GI & Abdominal Exam: Soft. absent: Tenderness - Extremities Exam Additional comments: wound dressing c/d/i - Neurological Exam Neurological Exam: Alert, Awake, Oriented x3 Assessment and Plan - Assessment and Plan (Free Text) Plan: 1. PVD complicated with bilateral Leg ulcers - S/P bilateral LE Skin graft POD 3 - S/P bilateral leg debridement POD 24 - 12/03 bilateral wound cultures: Alisha Parapsilosis - 11/26 bilateral wound cultures: Pseudomonas aeruginosa, amikacin sensitive - Dr. Allison consulted: Continue antibiotics: Avycaz 2.5gr IV Q8 (added on 11/29) Repeat labs 1-2 times weekly to monitor for side effects - Continue Florastor 250 mg PO BID - Acetaminophen 975 mg PO Q8 prn for pain - Continue topical Vitamin A for wound - Surgery will do Q2 dressing changes - Dilauded 1mg IV q4hrs prn mod pain; 0.5mg q15min prn severe pain 2. Anemia likely secondary to chronic disease- stable - Hgb 10.3 12/09/16 - continue Feosol 325mg PO daily - continue to monitor CBC daily 3. Mild aortic stenosis, s/p bioprosthetic aortic valve replacement - 11/15 EKG: sinus rhythm with premature atrial complexes, 79 bpm, left atrial enlargement, normal intervals. - Dr. Duggan consulted: continue ASA 81 mg PO daily, continue Plavix 75 mg PO daily, continue Lovenox 40 mg SC daily (added on 11/29) - Per Dr. Duggan pt may proceed with acceptable cardiac risk if EKG is unremarkable 4. HTN - continue Lopressor 50 mg PO BID. 5. Neuropathy - continue Neurontin 100mg PO BID 6. Constipation - continue Colace 100 mg PO TID - continue Lactulose 20 gr PO BID 7. Prophylaxis - Pepcid 20mg PO BID - Florastor 250 mg PO BID - Lovenox and Plavix 8. Disposition - Patient will stay in the hospital for 11 more days of IV antibiotic. Patient unable to afford outpatient option. Case discussed with Dr. Edwards <Andrea Edwards - Last Filed: 12/10/16 17:18> Objective - Vital Signs/Intake and Output Vital Signs (last 24 hours): Temp Pulse Resp BP Pulse Ox 98.2 F 67 20 160/76 H 98 12/10/16 16:19 12/10/16 16:19 12/10/16 16:19 12/10/16 16:19 12/10/16 16:19 Intake and Output: 12/10/16 12/10/16 06:59 18:59 Intake Total 700 Balance 700 - Medications Medications: Current Medications Aspirin (Aspirin Chewable) 81 mg PO DAILY [facility] Last Admin: 12/10/16 08:59 Dose: 81 mg Clopidogrel Bisulfate (Plavix) 75 mg PO DAILY [facility] Last Admin: 12/10/16 08:59 Dose: 75 mg Docusate Sodium (Colace) 100 mg PO TID [facility] Last Admin: 12/10/16 13:32 Dose: 100 mg Enoxaparin Sodium (Lovenox) 40 mg SC DAILY [facility] Last Admin: 12/06/16 09:44 Dose: 40 mg Famotidine (Pepcid) 20 mg PO BID [facility] Last Admin: 12/10/16 08:59 Dose: 20 mg Ferrous Sulfate (Feosol) 325 mg PO DAILY [facility] Last Admin: 12/10/16 08:59 Dose: 325 mg Gabapentin (Neurontin) 100 mg PO BID [facility] Last Admin: 12/10/16 08:59 Dose: 100 mg Hydromorphone HCl (Dilaudid) 0.5 mg IVP Q15M PRN PRN Reason: Pain, severe (8-10) Last Admin: 12/07/16 17:03 Dose: 0.5 mg Hydromorphone HCl (Dilaudid) 1 mg IVP Q4H PRN PRN Reason: Pain, moderate (4-7) Last Admin: 12/10/16 00:19 Dose: 1 mg Ceftazidime/Avibactam 2.5 gm/ (Sodium Chloride) 100 mls @ 50 mls/hr IV Q8H [facility] Last Admin: 12/10/16 15:06 Dose: 50 mls/hr Lactulose (Enulose) 20 gm PO BID [facility] Last Admin: 12/10/16 08:59 Dose: 20 gm Metoprolol Tartrate (Lopressor) 50 mg PO BID [facility] Last Admin: 12/10/16 08:59 Dose: 50 mg Saccharomyces Boulardii (Florastor) 250 mg PO BID [facility] Last Admin: 12/10/16 09:05 Dose: 250 mg Vitamin A (Vitamin A & D Oint Ud Foilpak) 1 ea TOP BID [facility] Last Admin: 12/10/16 08:59 Dose: 1 ea - Labs Labs: 12/09/16 06:07 12/09/16 06:07 PT 13.5 SECONDS (9.7-12.2) H 12/07/16 06:44 INR 1.2 12/07/16 06:44 APTT 30 SECONDS (21-34) 12/07/16 06:44 Attending/Attestation - Attestation I have personally seen and examined this patient.: Yes I have fully participated in the care of the patient.: Yes I have reviewed all pertinent clinical information, including history, physical exam and plan: Yes Notes (Text): 12/10/16 16:[address] Verdin Patient was seen and examined at 3:30 PM 12/10/16 667 B. ROS: There is some pain at the Right Anterior thigh (the site from which skin grafts were taken) however it is manageable at the moment. He states that he did have a small bowel earlier today since not being able to move his bowels since 12/08/16. NO other complaints upon FULL ROS at the time of my exam Exam: HEENT: NCA, EOMI, PERRLA, NO cervical/supraclavicular/submandicular lymphadenopathy, NO pharyngeal erythema/exudate, Nasal Turbinates are nonerythematous/nonedematous Cardiology: Holosystolic Murmur in all of the auscultatory carrera with audible S2 click heard along left lower sternal border Respiratory: CTA B/L, NO R/R/W GI: BSx4, Soft, ND, NO guarding/rebound tenderness, NO HSM Ext: Pulses are strong and equal, Capillary Refill is 2 seconds, NO edema of the bilateral UE, Clean/Dry bandages bilateral lower legs, Right Upper Arm PICC Line Neuro: CN II through XII are grossly intact Assessments Bilateral Leg Ulcers S/P Skin Grafts 12/07/[address] Velasquez: surgery team to manage dressings and these should not be removed by Medicine Team. Patient will need to stay as an in-patient for Ceftazidin 2. 5 gm IV Q8H through 12/18/16 as insurance would not cover outpatient antibiotic administration. Medicine Team please monitor CMP and CBC with differential at least 2x per week until 12/18/16 to look for the elevated LFTs, Thrombocytosis/ Thrombocytopenia, Agranulocytosis, Leukopenia/Lymphocytosis, and transient elevations in BUN/Cr. ID Dr. Yolis Allison is also following Anemia likely Secondary to Iron Deficiency: Feosol 325 mg PO 1x/day Mild Aortic Stenosis S/P Bioprosthetic Valve Replacement HTN: Lopressor 5 mg PO 2x/day Neuropathy: Gabapentin 100 mg PO 2x/day Constipation: Colace 100 mg PO TID, Lactulose 20 mg PO BID, he did have a small bowel movement earlier on in the day on 12/10/16 PVD: Plavix 75 mg PO 1x/day, ASA 81 mg PO 1x/day Hx CHF as per Dr. Verdin's Notes Hx CAD: ASA 81 mg PO 1x/day, Plavix 75 mg PO 1x/day Hx COPD as per Dr. Verdin's Notes Prophylaxis: Colace and Lactulose as above, Pepcid, Lovenox, Florastor, Vitamin A&D Ointment BID Feet, Dilaudid 1 mg IV Q4H PRN (I explained to patient the dangers of addiction/constipation concerning this medication and that it should only be used if the pain level is to the point that he can think of nothing else other than the pain and expressed understanding that the pain was manageable at present and it was not to this level) Andrea Edwards D.O.
[2016-12-10] MEDS: Vitamins A & D Oint UD Foilpak TOP SCH ×2 (08:59→17:02)
[2016-12-10] MEDS: Saccharomyces Boulardi 250 mg Cap PO SCH ×2 (09:05→17:00)
--- NOTE | 2016-12-10 10:57 | CP.PCM.PN ---
Subjective - Date & Time of Evaluation Date of Evaluation: 12/10/16 Time of Evaluation: 06:50 - Subjective Subjective: SURGERY NOTE FOR DR. LOPEZ 81M seen and examined at bedside. minimal pain in the right upper thigh, denies any other complaints. Objective - Vital Signs/Intake and Output Vital Signs (last 24 hours): Temp Pulse Resp BP Pulse Ox 97.9 F 73 20 131/74 98 12/10/16 08:47 12/10/16 08:47 12/10/16 08:47 12/10/16 08:47 12/10/16 08:47 - Medications Medications: Current Medications Aspirin (Aspirin Chewable) 81 mg PO DAILY [facility] Last Admin: 12/10/16 08:59 Dose: 81 mg Clopidogrel Bisulfate (Plavix) 75 mg PO DAILY [facility] Last Admin: 12/10/16 08:59 Dose: 75 mg Docusate Sodium (Colace) 100 mg PO TID [facility] Last Admin: 12/10/16 08:59 Dose: 100 mg Enoxaparin Sodium (Lovenox) 40 mg SC DAILY [facility] Last Admin: 12/06/16 09:44 Dose: 40 mg Famotidine (Pepcid) 20 mg PO BID [facility] Last Admin: 12/10/16 08:59 Dose: 20 mg Ferrous Sulfate (Feosol) 325 mg PO DAILY [facility] Last Admin: 12/10/16 08:59 Dose: 325 mg Gabapentin (Neurontin) 100 mg PO BID [facility] Last Admin: 12/10/16 08:59 Dose: 100 mg Hydromorphone HCl (Dilaudid) 0.5 mg IVP Q15M PRN PRN Reason: Pain, severe (8-10) Last Admin: 12/07/16 17:03 Dose: 0.5 mg Hydromorphone HCl (Dilaudid) 1 mg IVP Q4H PRN PRN Reason: Pain, moderate (4-7) Last Admin: 12/10/16 00:19 Dose: 1 mg Ceftazidime/Avibactam 2.5 gm/ (Sodium Chloride) 100 mls @ 50 mls/hr IV Q8H [facility] Last Admin: 12/10/16 06:52 Dose: 50 mls/hr Lactulose (Enulose) 20 gm PO BID [facility] Last Admin: 12/10/16 08:59 Dose: 20 gm Metoprolol Tartrate (Lopressor) 50 mg PO BID [facility] Last Admin: 12/10/16 08:59 Dose: 50 mg Saccharomyces Boulardii (Florastor) 250 mg PO BID [facility] Last Admin: 12/10/16 09:05 Dose: 250 mg Vitamin A (Vitamin A & D Oint Ud Foilpak) 1 ea TOP BID [facility] Last Admin: 12/10/16 08:59 Dose: 1 ea - Labs Labs: 12/09/16 06:07 12/09/16 06:07 PT 13.5 SECONDS (9.7-12.2) H 12/07/16 06:44 INR 1.2 12/07/16 06:44 APTT 30 SECONDS (21-34) 12/07/16 06:44 - Constitutional Appears: Non-toxic, No Acute Distress - Respiratory Exam Respiratory Exam: Clear to Ausculation Bilateral, NORMAL BREATHING PATTERN - Cardiovascular Exam Cardiovascular Exam: REGULAR RHYTHM, +S1, +S2 - Extremities Exam Additional comments: right thigh dressing CDI B/L ankle dressing CDI - Neurological Exam Neurological Exam: Alert, Awake Assessment and Plan - Assessment and Plan (Free Text) Assessment: 81M s/p skin graft placement on b/l ankles, right thigh donor site Plan: -keep ankle dressing on- do not touch - right thigh dressing change if needed Further recs discuss with Dr Ron Barrera PGY2
[2016-12-10] MEDS ORDERED: Bisacodyl 5mg EC Tab PO ONE (16:00)
--- NOTE | 2016-12-10 16:40 | CP.PCM.PN ---
Subjective - Date & Time of Evaluation Date of Evaluation: 12/10/16 Time of Evaluation: 06:00 - Subjective Subjective: wounds healing Objective - Vital Signs/Intake and Output Vital Signs (last 24 hours): Temp Pulse Resp BP Pulse Ox 98.2 F 67 20 160/76 H 98 12/10/16 16:19 12/10/16 16:19 12/10/16 16:19 12/10/16 16:19 12/10/16 16:19 Intake and Output: 12/10/16 12/10/16 06:59 18:59 Intake Total 700 Balance 700 - Medications Medications: Current Medications Aspirin (Aspirin Chewable) 81 mg PO DAILY [facility] Last Admin: 12/10/16 08:59 Dose: 81 mg Clopidogrel Bisulfate (Plavix) 75 mg PO DAILY [facility] Last Admin: 12/10/16 08:59 Dose: 75 mg Docusate Sodium (Colace) 100 mg PO TID [facility] Last Admin: 12/10/16 13:32 Dose: 100 mg Enoxaparin Sodium (Lovenox) 40 mg SC DAILY [facility] Last Admin: 12/06/16 09:44 Dose: 40 mg Famotidine (Pepcid) 20 mg PO BID [facility] Last Admin: 12/10/16 08:59 Dose: 20 mg Ferrous Sulfate (Feosol) 325 mg PO DAILY [facility] Last Admin: 12/10/16 08:59 Dose: 325 mg Gabapentin (Neurontin) 100 mg PO BID [facility] Last Admin: 12/10/16 08:59 Dose: 100 mg Hydromorphone HCl (Dilaudid) 0.5 mg IVP Q15M PRN PRN Reason: Pain, severe (8-10) Last Admin: 12/07/16 17:03 Dose: 0.5 mg Hydromorphone HCl (Dilaudid) 1 mg IVP Q4H PRN PRN Reason: Pain, moderate (4-7) Last Admin: 12/10/16 00:19 Dose: 1 mg Ceftazidime/Avibactam 2.5 gm/ (Sodium Chloride) 100 mls @ 50 mls/hr IV Q8H [facility] Last Admin: 12/10/16 15:06 Dose: 50 mls/hr Lactulose (Enulose) 20 gm PO BID [facility] Last Admin: 12/10/16 08:59 Dose: 20 gm Metoprolol Tartrate (Lopressor) 50 mg PO BID [facility] Last Admin: 12/10/16 08:59 Dose: 50 mg Saccharomyces Boulardii (Florastor) 250 mg PO BID [facility] Last Admin: 12/10/16 09:05 Dose: 250 mg Vitamin A (Vitamin A & D Oint Ud Foilpak) 1 ea TOP BID [facility] Last Admin: 12/10/16 08:59 Dose: 1 ea - Labs Labs: 12/09/16 06:07 12/09/16 06:07 PT 13.5 SECONDS (9.7-12.2) H 12/07/16 06:44 INR 1.2 12/07/16 06:44 APTT 30 SECONDS (21-34) 12/07/16 06:44 - Constitutional Appears: Non-toxic, Chronically Ill - Head Exam Head Exam: NORMOCEPHALIC - Eye Exam Eye Exam: PERRL - ENT Exam ENT Exam: Mucous Membranes Dry - Respiratory Exam Respiratory Exam: Decreased Breath Sounds - Cardiovascular Exam Cardiovascular Exam: REGULAR RHYTHM - GI/Abdominal Exam GI & Abdominal Exam: Distended, Soft - Rectal Exam Rectal Exam: NORMAL INSPECTION - Exam Exam: NORMAL INSPECTION Assessment and Plan (1) Cellulitis Status: Acute (2) Dehydration Status: Acute
--- NOTE | 2016-12-11 08:23 | CP.PCM.PN ---
<Rosalio Bernstein - Last Filed: 12/11/16 13:52> Subjective - Date & Time of Evaluation Date of Evaluation: 12/11/16 Time of Evaluation: 08:22 - Subjective Subjective: PGY-[address] Mendez HPI: Patient seen and examined at bedside. Doing well. States his ankles are fine but he is having pain around the graft site on his thigh. States surgery came and changed the dressing today. He has been getting up and walking around regularly. Has a good appetite. Has not had any diarrhea. aware that he will need to stay here for a while in order to complete his course of antibiotics. No other complaints at this time. Objective - Vital Signs/Intake and Output Vital Signs (last 24 hours): Temp Pulse Resp BP Pulse Ox 98.1 F 69 20 173/76 H 100 12/10/16 23:30 12/10/16 23:30 12/10/16 23:30 12/10/16 23:30 12/10/16 23:30 - Medications Medications: Current Medications Aspirin (Aspirin Chewable) 81 mg PO DAILY [facility] Last Admin: 12/10/16 08:59 Dose: 81 mg Clopidogrel Bisulfate (Plavix) 75 mg PO DAILY [facility] Last Admin: 12/10/16 08:59 Dose: 75 mg Docusate Sodium (Colace) 100 mg PO TID [facility] Last Admin: 12/10/16 17:01 Dose: 100 mg Enoxaparin Sodium (Lovenox) 40 mg SC DAILY [facility] Last Admin: 12/06/16 09:44 Dose: 40 mg Famotidine (Pepcid) 20 mg PO BID [facility] Last Admin: 12/10/16 17:01 Dose: 20 mg Ferrous Sulfate (Feosol) 325 mg PO DAILY [facility] Last Admin: 12/10/16 08:59 Dose: 325 mg Gabapentin (Neurontin) 100 mg PO BID [facility] Last Admin: 12/10/16 17:00 Dose: 100 mg Hydromorphone HCl (Dilaudid) 0.5 mg IVP Q15M PRN PRN Reason: Pain, severe (8-10) Last Admin: 12/07/16 17:03 Dose: 0.5 mg Hydromorphone HCl (Dilaudid) 1 mg IVP Q4H PRN PRN Reason: Pain, moderate (4-7) Last Admin: 12/10/16 00:19 Dose: 1 mg Ceftazidime/Avibactam 2.5 gm/ (Sodium Chloride) 100 mls @ 50 mls/hr IV Q8H [facility] Last Admin: 12/10/16 23:55 Dose: 50 mls/hr Lactulose (Enulose) 20 gm PO BID [facility] Last Admin: 12/10/16 17:02 Dose: Not Given Metoprolol Tartrate (Lopressor) 50 mg PO BID [facility] Last Admin: 12/10/16 17:07 Dose: 50 mg Saccharomyces Boulardii (Florastor) 250 mg PO BID [facility] Last Admin: 12/10/16 17:00 Dose: 250 mg Vitamin A (Vitamin A & D Oint Ud Foilpak) 1 ea TOP BID [facility] Last Admin: 12/10/16 17:02 Dose: 1 ea - Labs Labs: 12/09/16 06:07 12/09/16 06:07 PT 13.5 SECONDS (9.7-12.2) H 12/07/16 06:44 INR 1.2 12/07/16 06:44 APTT 30 SECONDS (21-34) 12/07/16 06:44 - Constitutional Appears: Well, Non-toxic, No Acute Distress - Head Exam Head Exam: ATRAUMATIC, NORMAL INSPECTION, NORMOCEPHALIC - Eye Exam Eye Exam: EOMI Pupil Exam: NORMAL ACCOMODATION - ENT Exam ENT Exam: Mucous Membranes Moist - Respiratory Exam Respiratory Exam: Clear to Ausculation Bilateral, NORMAL BREATHING PATTERN. absent: Decreased Breath Sounds, Rales, Rhonchi, Wheezes - Cardiovascular Exam Cardiovascular Exam: REGULAR RHYTHM, RRR. absent: Bradycardia, Tachycardia, Gallop, JVD, Rubs, Murmur - GI/Abdominal Exam GI & Abdominal Exam: Soft, Normal Bowel Sounds. absent: Distended, Tenderness - Extremities Exam Extremities Exam: absent: Joint Swelling, Tenderness Additional comments: graft site on r. thigh c/d/i B/l ankles dressing c/d/i - Neurological Exam Neurological Exam: Alert, Awake, Oriented x3 - Psychiatric Exam Psychiatric exam: Normal Affect, Normal Mood - Skin Skin Exam: Dry, Intact, Normal Color, Warm Assessment and Plan - Assessment and Plan (Free Text) Assessment: PVD complicated with bilateral Leg ulcers * S/P bilateral LE Skin graft POD 4 * S/P bilateral leg debridement POD 25 * wound cultures: Alisha Parapsilosis * ID ([facility]) * Avycaz 2.5gr IV Q8 * Mycamine 100mg IV * Repeat labs 1-2 times weekly to monitor for side effects * Florastor 250 mg PO BID * Acetaminophen 975 mg PO Q8 prn for pain * topical Vitamin A for wound * [place] [place] Q2 dressing changes * Dilauded 1mg IV q4hrs prn mod pain; 0.5mg q15min prn severe pain Anemia likely secondary to chronic disease * Hgb 10.3 12/09/16 * Feosol 325mg PO daily Mild aortic stenosis, s/p bioprosthetic aortic valve replacement * Cards ([facility]) * ASA 81 mg PO daily * Plavix 75 mg PO daily * Lovenox 40 mg SC daily HTN * Lopressor 50 mg PO BID. Neuropathy * Neurontin 100mg PO BID Constipation * Colace 100 mg PO TID * Lactulose 20 gr PO BID Prophylaxis * Pepcid 20mg PO BID * Florastor 250 mg PO BID * Lovenox and Plavix Disposition * Patient will stay in the hospital until 12/20 for IV antibiotics. Patient unable to afford outpatient option. <Erika Mendez V - Last Filed: 12/11/16 17:01> Objective - Vital Signs/Intake and Output Vital Signs (last 24 hours): Temp Pulse Resp BP Pulse Ox 97.7 F 76 20 107/53 L 99 12/11/16 15:12 12/11/16 15:12 12/11/16 15:12 12/11/16 15:12 12/11/16 15:12 Intake and Output: 12/11/16 12/11/16 06:59 18:59 Intake Total 400 Balance 400 - Medications Medications: Current Medications Aspirin (Aspirin Chewable) 81 mg PO DAILY [facility] Last Admin: 12/11/16 09:06 Dose: 81 mg Clopidogrel Bisulfate (Plavix) 75 mg PO DAILY [facility] Last Admin: 12/11/16 09:06 Dose: 75 mg Docusate Sodium (Colace) 100 mg PO TID [facility] Last Admin: 12/11/16 14:24 Dose: 100 mg Enoxaparin Sodium (Lovenox) 40 mg SC DAILY [facility] Last Admin: 12/06/16 09:44 Dose: 40 mg Famotidine (Pepcid) 20 mg PO BID [facility] Last Admin: 12/11/16 09:05 Dose: 20 mg Ferrous Sulfate (Feosol) 325 mg PO DAILY [facility] Last Admin: 12/11/16 09:06 Dose: 325 mg Gabapentin (Neurontin) 100 mg PO BID [facility] Last Admin: 12/11/16 09:06 Dose: 100 mg Hydromorphone HCl (Dilaudid) 1 mg IVP Q4H PRN PRN Reason: Pain, moderate (4-7) Last Admin: 12/11/16 10:22 Dose: 1 mg Ceftazidime/Avibactam 2.5 gm/ (Sodium Chloride) 100 mls @ 50 mls/hr IV Q8H [facility] Last Admin: 12/11/16 15:45 Dose: 50 mls/hr Micafungin Sodium 100 mg/ (Sodium Chloride) 100 mls @ 100 mls/hr IV DAILY [facility] Last Admin: 12/11/16 15:15 Dose: 100 mls/hr Lactulose (Enulose) 20 gm PO BID [facility] Last Admin: 12/11/16 09:09 Dose: Not Given Metoprolol Tartrate (Lopressor) 50 mg PO BID [facility] Last Admin: 12/11/16 09:05 Dose: 50 mg Saccharomyces Boulardii (Florastor) 250 mg PO BID [facility] Last Admin: 12/11/16 09:06 Dose: 250 mg Vitamin A (Vitamin A & D Oint Ud Foilpak) 1 ea TOP BID [facility] Last Admin: 12/11/16 09:05 Dose: 1 ea - Labs Labs: 12/11/16 11:31 12/11/16 11:31 PT 13.5 SECONDS (9.7-12.2) H 12/07/16 06:44 INR 1.2 12/07/16 06:44 APTT 30 SECONDS (21-34) 12/07/16 06:44 Attending/Attestation - Attestation I have personally seen and examined this patient.: Yes I have fully participated in the care of the patient.: Yes I have reviewed all pertinent clinical information, including history, physical exam and plan: Yes Notes (Text): Patient seen, examined, and case discussed with day-time resident. Hospitalist covering Dr. Verdin's service. Patient seen this morning during rounds. Patient is pleasant, no acute complaints. Patient is aware he requires in-patient IV antibiotics to cover for bilateral leg ulcers. Patient had refused change in antibiotics yesterday with ID; but is amenable to change in antifungal today; Will f/u with infectious disease Patient's primary to resume care tomorrow 12/12/16 Assessment/Plan 1) Bilateral Leg Ulcers S/P Skin Grafts 12/07/16 * Consult: Dr. Velasquez (Vascular surgery) * Consult: Dr. Allison (infectious disease) on board * Patient is postoperative day 4; surgery to manage dressing changes. 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 2) Anemia likely Secondary to Iron Deficiency * Feosol 325 mg PO 1x/day * Monitor H/H 3) Mild Aortic Stenosis S/P Bioprosthetic Valve Replacement * Aspirin 81mg PO daily * Lopressor 50mg PO bid 4) Hypertension: * Lopressor 50 mg PO 2x/day * monitor vital signs 5) Neuropathy * Gabapentin 100 mg PO 2x/day 6) Constipation * Colace 100 mg PO TID * Lactulose 20 mg PO BID * Resolved; reports he has had bowel movement; no diarrhea 7) Peripheral Vascular Disease * Plavix 75 mg PO 1x/day * ASA 81 mg PO 1x/day 8) Hx CHF as per Dr. Verdin's Notes * Lopressor 50mg PO bid * Aspirin 81mg PO daily * Echocardiogram (07/14/16): left ventricle is moderately borderline dilated; moderate concentric left ventricular hypertrophy, EF: 50-55%; left atrium is moderately dilated; prosthetic aortic valve prosthesis 9) Hx CAD? * ASA 81 mg PO 1x/day * Plavix 75 mg PO 1x/day * prior cardiac cath (06/27/14): cardiac cath: unremarkable coronary circulation and normal left ventricular systolic function. No gradient is noted across the aortic valve 10) Hx COPD as per Dr. Verdin's Notes 11) Prophylaxis: Colace and Lactulose as above, Pepcid 20mg PO bid, Lovenox 40mg subqdaily, Florastor 250mg PO bid, Vitamin A&D Ointment BID Feet, Dilaudid 1 mg IV Q4H PRN
[2016-12-11] MEDS: Vitamins A & D Oint UD Foilpak TOP SCH ×2 (09:05→17:55)
[2016-12-11] MEDS: Saccharomyces Boulardi 250 mg Cap PO SCH ×2 (09:06→17:54)
[2016-12-11] MEDS: HYDROmorphone 1 mg/ml ISec IVP PRN (10:22)
[2016-12-11 11:37] LABS: BASO # 0.1 K/uL (0.0-0.2); BASO % 0.7 % (0.0-2.0); EOS # 0.6 K/uL (0.0-0.7); EOS % 7.3 % (0.0-4.0); HEMATOCRIT 34.4 % (35.0-51.0); LYMPH # 2.3 K/uL (1.0-4.3); LYMPH % 27.3 % (20.0-40.0); MEAN CELL VOLUME 73.1 fL (80.0-94.0); MEAN CORPUSCULAR HEMOGLOBIN 23.1 pg (27.0-31.0); MEAN CORPUSCULAR HGB CONC 31.6 g/dL (33.0-37.0); MEAN PLATELET VOLUME 9.4 fL (7.2-11.7); MONO # 0.9 K/uL (0.0-0.8); MONO % 11.4 % (0.0-10.0); RED CELL DISTRIBUTION WIDTH 26.7 % (11.5-14.5); WHITE BLOOD COUNT 8.3 K/uL (4.8-10.8)
[2016-12-11 11:47] LABS: CHLORIDE 100 mmol/L (98-107); POTASSIUM 4.6 mmol/L (3.6-5.2)
[2016-12-11 11:49] LABS: BILIRUBIN,TOTAL 0.5 mg/dL (0.2-1.3); CARBON DIOXIDE 31 mmol/L (22-30); GFR AFRICAN-AMERICAN > 60
[2016-12-11 11:50] LABS: ALB/GLOB RATIO 0.8 (1.0-2.1); ALKALINE PHOSPHATASE 91 U/L (38-126); ALT/SGPT 29 U/L (21-72); AST/SGOT 33 U/L (17-59); BLOOD UREA NITROGEN 20 mg/dL (9-20); CALCIUM 9.8 mg/dl (8.6-10.4); GLUCOSE,RANDOM 140 mg/dL (75-110); TOTAL PROTEIN 7.7 g/dL (6.3-8.3)
[2016-12-11 12:00] LABS: SODIUM 142 mmol/L (132-148)
--- NOTE | 2016-12-11 15:11 | CP.PCM.PN ---
Subjective - Date & Time of Evaluation Date of Evaluation: 12/11/16 Time of Evaluation: 06:30 - Subjective Subjective: Pt S&E. Reports minimal pain from right upper thigh. Bilateral lower extremity dressings are c/d/i. Objective - Vital Signs/Intake and Output Vital Signs (last 24 hours): Temp Pulse Resp BP Pulse Ox 97.7 F 66 17 146/77 98 12/11/16 07:30 12/11/16 07:30 12/11/16 07:30 12/11/16 07:30 12/11/16 07:30 - Medications Medications: Current Medications Aspirin (Aspirin Chewable) 81 mg PO DAILY [facility] Last Admin: 12/11/16 09:06 Dose: 81 mg Clopidogrel Bisulfate (Plavix) 75 mg PO DAILY [facility] Last Admin: 12/11/16 09:06 Dose: 75 mg Docusate Sodium (Colace) 100 mg PO TID [facility] Last Admin: 12/11/16 14:24 Dose: 100 mg Enoxaparin Sodium (Lovenox) 40 mg SC DAILY [facility] Last Admin: 12/06/16 09:44 Dose: 40 mg Famotidine (Pepcid) 20 mg PO BID [facility] Last Admin: 12/11/16 09:05 Dose: 20 mg Ferrous Sulfate (Feosol) 325 mg PO DAILY [facility] Last Admin: 12/11/16 09:06 Dose: 325 mg Gabapentin (Neurontin) 100 mg PO BID [facility] Last Admin: 12/11/16 09:06 Dose: 100 mg Hydromorphone HCl (Dilaudid) 0.5 mg IVP Q15M PRN PRN Reason: Pain, severe (8-10) Last Admin: 12/07/16 17:03 Dose: 0.5 mg Hydromorphone HCl (Dilaudid) 1 mg IVP Q4H PRN PRN Reason: Pain, moderate (4-7) Last Admin: 12/11/16 10:22 Dose: 1 mg Ceftazidime/Avibactam 2.5 gm/ (Sodium Chloride) 100 mls @ 50 mls/hr IV Q8H [facility] Last Admin: 12/11/16 08:44 Dose: 50 mls/hr Micafungin Sodium 100 mg/ (Sodium Chloride) 100 mls @ 100 mls/hr IV DAILY [facility] Lactulose (Enulose) 20 gm PO BID [facility] Last Admin: 12/11/16 09:09 Dose: Not Given Metoprolol Tartrate (Lopressor) 50 mg PO BID [facility] Last Admin: 12/11/16 09:05 Dose: 50 mg Saccharomyces Boulardii (Florastor) 250 mg PO BID [facility] Last Admin: 12/11/16 09:06 Dose: 250 mg Vitamin A (Vitamin A & D Oint Ud Foilpak) 1 ea TOP BID [facility] Last Admin: 12/11/16 09:05 Dose: 1 ea - Labs Labs: 12/11/16 11:31 12/11/16 11:31 PT 13.5 SECONDS (9.7-12.2) H 12/07/16 06:44 INR 1.2 12/07/16 06:44 APTT 30 SECONDS (21-34) 12/07/16 06:44 - Constitutional Appears: No Acute Distress - Head Exam Head Exam: NORMOCEPHALIC - Eye Exam Eye Exam: Normal appearance - Respiratory Exam Respiratory Exam: NORMAL BREATHING PATTERN - Cardiovascular Exam Cardiovascular Exam: +S1, +S2 - GI/Abdominal Exam GI & Abdominal Exam: Soft - Neurological Exam Neurological Exam: Alert, Awake, Oriented x3 - Psychiatric Exam Psychiatric exam: Normal Mood - Skin Skin Exam: Warm Assessment and Plan - Assessment and Plan (Free Text) Assessment: 81M s/p skin graft placement on b/l ankles, right thigh donor site POD 4 -keep ankle dressings on- do not touch - right thigh dressing was changed. c/d/i -Further recs per Dr. Ron Epps PGY-2
[2016-12-11] MEDS: Micafungin 100 MG in Sodium Chloride 0.9% 100 ML IV SCH (15:15)
[2016-12-12 06:41] LABS: BASO # 0.1 K/uL (0.0-0.2); BASO % 0.8 % (0.0-2.0); EOS # 0.6 K/uL (0.0-0.7); EOS % 7.6 % (0.0-4.0); LYMPH # 2.4 K/uL (1.0-4.3); LYMPH % 30.2 % (20.0-40.0); MEAN CORPUSCULAR HGB CONC 31.5 g/dL (33.0-37.0); MEAN PLATELET VOLUME 9.6 fL (7.2-11.7); MONO # 1.2 K/uL (0.0-0.8); RED CELL DISTRIBUTION WIDTH 27.2 % (11.5-14.5); WHITE BLOOD COUNT 7.8 K/uL (4.8-10.8)
[2016-12-12 06:53] LABS: CHLORIDE 103 mmol/L (98-107); POTASSIUM 4.6 mmol/L (3.6-5.2); SODIUM 141 mmol/L (132-148)
[2016-12-12 06:56] LABS: ALB/GLOB RATIO 0.8 (1.0-2.1); ALKALINE PHOSPHATASE 86 U/L (38-126); ALT/SGPT 23 U/L (21-72); AST/SGOT 25 U/L (17-59); BILIRUBIN,TOTAL 0.4 mg/dL (0.2-1.3); BLOOD UREA NITROGEN 20 mg/dL (9-20); CARBON DIOXIDE 30 mmol/L (22-30); GFR AFRICAN-AMERICAN > 60; GLUCOSE,RANDOM 88 mg/dL (75-110); TOTAL PROTEIN 7.2 g/dL (6.3-8.3)
[2016-12-12 06:57] LABS: CALCIUM 9.7 mg/dl (8.6-10.4)
--- NOTE | 2016-12-12 09:23 | CP.PCM.PN ---
Subjective - Date & Time of Evaluation Date of Evaluation: 12/12/16 Time of Evaluation: 07:15 - Subjective Subjective: PGY2 Resident - Medicine Progress Note Patient seen and examined at bedside. No overnight events per nursing. Patient has been getting up and walking around regularly, eating well, denies diarrhea or constipation. He reports mild pain at the graft site on his thigh, however he feels his pain is well managed. No acute complaints. Denies fever, chills, headache, changes in vision, chest pain, palpitations, dyspnea, cough, abdominal pain, nausea/vomiting, diarrhea/constipation, dysuria, urinary frequency, change in urinary stream, or any additional acute complaints. Objective - Vital Signs/Intake and Output Vital Signs (last 24 hours): Temp Pulse Resp BP Pulse Ox 98.4 F 71 20 148/70 98 12/11/16 23:30 12/11/16 23:30 12/11/16 23:30 12/12/16 04:10 12/11/16 23:30 Intake and Output: 12/12/16 12/12/16 06:59 18:59 Intake Total 760 Balance 760 - Medications Medications: Current Medications Aspirin (Aspirin Chewable) 81 mg PO DAILY [facility] Last Admin: 12/11/16 09:06 Dose: 81 mg Clopidogrel Bisulfate (Plavix) 75 mg PO DAILY [facility] Last Admin: 12/11/16 09:06 Dose: 75 mg Docusate Sodium (Colace) 100 mg PO TID [facility] Last Admin: 12/11/16 17:55 Dose: 100 mg Enoxaparin Sodium (Lovenox) 40 mg SC DAILY [facility] Last Admin: 12/06/16 09:44 Dose: 40 mg Famotidine (Pepcid) 20 mg PO BID [facility] Last Admin: 12/11/16 17:55 Dose: 20 mg Ferrous Sulfate (Feosol) 325 mg PO DAILY [facility] Last Admin: 12/11/16 09:06 Dose: 325 mg Gabapentin (Neurontin) 100 mg PO BID [facility] Last Admin: 12/11/16 17:55 Dose: 100 mg Ceftazidime/Avibactam 2.5 gm/ (Sodium Chloride) 100 mls @ 50 mls/hr IV Q8H [facility] Last Admin: 12/12/16 07:17 Dose: 50 mls/hr Micafungin Sodium 100 mg/ (Sodium Chloride) 100 mls @ 100 mls/hr IV DAILY [facility] Last Admin: 12/11/16 15:15 Dose: 100 mls/hr Lactulose (Enulose) 20 gm PO BID [facility] Last Admin: 12/11/16 17:55 Dose: Not Given Metoprolol Tartrate (Lopressor) 50 mg PO BID [facility] Last Admin: 12/11/16 17:55 Dose: Not Given Saccharomyces Boulardii (Florastor) 250 mg PO BID [facility] Last Admin: 12/11/16 17:54 Dose: 250 mg Vitamin A (Vitamin A & D Oint Ud Foilpak) 1 ea TOP BID [facility] Last Admin: 12/11/16 17:55 Dose: 1 ea - Labs Labs: 12/12/16 06:33 12/12/16 06:33 PT 13.5 SECONDS (9.7-12.2) H 12/07/16 06:44 INR 1.2 12/07/16 06:44 APTT 30 SECONDS (21-34) 12/07/16 06:44 - Additional Findings Additional findings: - Constitutional Appears: Well, Non-toxic, No Acute Distress - Head Exam Head Exam: ATRAUMATIC, NORMAL INSPECTION, NORMOCEPHALIC - Eye Exam Eye Exam: EOMI Pupil Exam: NORMAL ACCOMODATION - ENT Exam ENT Exam: Mucous Membranes Moist - Respiratory Exam Respiratory Exam: Clear to Ausculation Bilateral, NORMAL BREATHING PATTERN. absent: Decreased Breath Sounds, Rales, Rhonchi, Wheezes - Cardiovascular Exam Cardiovascular Exam: REGULAR RHYTHM, RRR. absent: Bradycardia, Tachycardia, Gallop, JVD, Rubs, Murmur - GI/Abdominal Exam GI & Abdominal Exam: Soft, Normal Bowel Sounds. absent: Distended, Tenderness - Extremities Exam Extremities Exam: absent: Joint Swelling, Tenderness Additional comments: Right Thigh graft site C/D/I Bilateral ankle/ware dressing C/D/I - Neurological Exam Neurological Exam: Alert, Awake, Oriented x3 - Psychiatric Exam Psychiatric exam: Normal Affect, Normal Mood - Skin Skin Exam: Dry, Intact, Normal Color, Warm Assessment and Plan - Assessment and Plan (Free Text) Assessment: PVD complicated with bilateral Leg ulcers * 12/12: B/l dressing CDI. Patient responding well to treatment. Patient will stay in the hospital until 12/20 for IV antibiotics. * S/P bilateral LE Skin graft POD 5 * S/P bilateral leg debridement POD 26 * wound cultures: Alsiha Parapsilosis * ID ([facility]) * Avycaz 2.5gr IV Q8 * Mycamine 100mg IV * Repeat labs 1-2 times weekly to monitor for side effects * Florastor 250 mg PO BID * Acetaminophen 975 mg PO Q8 prn for pain * topical Vitamin A for wound * [place] [place] Q2 dressing changes * Dilauded 1mg IV q4hrs prn mod pain; 0.5mg q15min prn severe pain Anemia likely secondary to chronic disease * 12/12: Hgb 10.4 stable. Continue current treatment. * Hgb 10.3 12/09/16 * Feosol 325mg PO daily Mild aortic stenosis, s/p bioprosthetic aortic valve replacement * Cardiology Consult, , f/u recs * ASA 81 mg PO daily * Plavix 75 mg PO daily * Lovenox 40 mg SC daily (on hold) HTN * 12/11: BP stable, continue to monitor * Lopressor 50 mg PO BID. Neuropathy * Neurontin 100mg PO BID Constipation * Colace 100 mg PO TID * Lactulose 20 gr PO BID Prophylaxis * Pepcid 20mg PO BID * Florastor 250 mg PO BID * Plavix Disposition * Patient will stay in the hospital until 12/20 for IV antibiotics. Patient unable to afford outpatient option. Case discussed with attending. All medical management as per Dr. Parish Verdin
[2016-12-12] MEDS: Saccharomyces Boulardi 250 mg Cap PO SCH ×2 (10:08→18:28)
[2016-12-12] MEDS: Vitamins A & D Oint UD Foilpak TOP SCH ×2 (10:08→18:30)
[2016-12-12] MEDS: Micafungin 100 MG in Sodium Chloride 0.9% 100 ML IV SCH (10:21)
[2016-12-12] MEDS ORDERED: HYDROmorphone 0.5 mg/0.5 ml ISec IVP ONE (23:31)
[2016-12-13 08:12] LABS: CHLORIDE 101 mmol/L (98-107); POTASSIUM 4.4 mmol/L (3.6-5.2); SODIUM 139 mmol/L (132-148)
[2016-12-13 08:14] LABS: GFR AFRICAN-AMERICAN > 60
[2016-12-13 08:15] LABS: ALB/GLOB RATIO 0.8 (1.0-2.1); ALKALINE PHOSPHATASE 82 U/L (38-126); ALT/SGPT 24 U/L (21-72); AST/SGOT 29 U/L (17-59); BASO # 0.1 K/uL (0.0-0.2); BASO % 1.1 % (0.0-2.0); BILIRUBIN,TOTAL 0.5 mg/dL (0.2-1.3); BLOOD UREA NITROGEN 20 mg/dL (9-20); CARBON DIOXIDE 29 mmol/L (22-30); EOS # 0.6 K/uL (0.0-0.7); EOS % 8.4 % (0.0-4.0); GLUCOSE,RANDOM 80 mg/dL (75-110); HEMATOCRIT 32.4 % (35.0-51.0); LYMPH # 1.7 K/uL (1.0-4.3); LYMPH % 24.2 % (20.0-40.0); MEAN CELL VOLUME 73.3 fL (80.0-94.0); MEAN CORPUSCULAR HEMOGLOBIN 23.1 pg (27.0-31.0); MEAN CORPUSCULAR HGB CONC 31.5 g/dL (33.0-37.0); MEAN PLATELET VOLUME 9.4 fL (7.2-11.7); MONO # 1.1 K/uL (0.0-0.8); MONO % 14.7 % (0.0-10.0); NRBC % 0.1 % (0.0-2.0); PHOSPHOROUS 3.8 mg/dL (2.5-4.5); RED CELL DISTRIBUTION WIDTH 27.4 % (11.5-14.5); TOTAL PROTEIN 7.2 g/dL (6.3-8.3); WHITE BLOOD COUNT 7.2 K/uL (4.8-10.8)
[2016-12-13 08:16] LABS: CALCIUM 9.6 mg/dl (8.6-10.4)
[2016-12-13] MEDS: Saccharomyces Boulardi 250 mg Cap PO SCH ×2 (10:54→17:52)
[2016-12-13] MEDS: Oxycodone/Acetaminophen 5/325 mg Tab PO PRN ×2 (10:55→22:54)
[2016-12-13] MEDS: Enoxaparin 40 mg Syringe SC SCH (10:56)
[2016-12-13] MEDS: Micafungin 100 MG in Sodium Chloride 0.9% 100 ML IV SCH (10:58)
--- NOTE | 2016-12-13 14:02 | CP.PCM.PN ---
Subjective - Date & Time of Evaluation Date of Evaluation: 12/13/16 Time of Evaluation: 09:20 - Subjective Subjective: Medicine progress note for Dr. Verdin Patient seen and examined. Patient states he feels well and is eating well. Patient states he does not have much pain but occasionally will request pain medication. Patient denies other complaints at this time. Objective - Vital Signs/Intake and Output Vital Signs (last 24 hours): Temp Pulse Resp BP Pulse Ox 98.3 F 80 20 125/69 98 12/13/16 08:24 12/13/16 10:54 12/13/16 08:24 12/13/16 10:54 12/13/16 08:24 Intake and Output: 12/13/16 12/13/16 06:59 18:59 Intake Total 700 Balance 700 - Medications Medications: Current Medications Aspirin (Aspirin Chewable) 81 mg PO DAILY [facility] Last Admin: 12/13/16 10:55 Dose: 81 mg Clopidogrel Bisulfate (Plavix) 75 mg PO DAILY [facility] Last Admin: 12/13/16 10:55 Dose: 75 mg Docusate Sodium (Colace) 100 mg PO TID [facility] Last Admin: 12/13/16 10:56 Dose: 100 mg Enoxaparin Sodium (Lovenox) 40 mg SC DAILY [facility] Last Admin: 12/13/16 10:56 Dose: 40 mg Famotidine (Pepcid) 20 mg PO BID [facility] Last Admin: 12/13/16 10:55 Dose: 20 mg Ferrous Sulfate (Feosol) 325 mg PO DAILY [facility] Last Admin: 12/13/16 10:56 Dose: 325 mg Gabapentin (Neurontin) 100 mg PO BID [facility] Last Admin: 12/13/16 10:56 Dose: 100 mg Ceftazidime/Avibactam 2.5 gm/ (Sodium Chloride) 100 mls @ 50 mls/hr IV Q8H [facility] Last Admin: 12/13/16 07:56 Dose: 50 mls/hr Micafungin Sodium 100 mg/ (Sodium Chloride) 100 mls @ 100 mls/hr IV DAILY [facility] Last Admin: 12/13/16 10:58 Dose: 100 mls/hr Lactulose (Enulose) 20 gm PO BID [facility] Last Admin: 12/13/16 10:56 Dose: Not Given Metoprolol Tartrate (Lopressor) 50 mg PO BID [facility] Last Admin: 12/13/16 10:54 Dose: 50 mg Oxycodone/Acetaminophen (Percocet 5/325 Mg Tab) 1 tab PO Q6H PRN PRN Reason: Pain, moderate (4-7) Stop: 12/16/16 09:52 Last Admin: 12/13/16 10:55 Dose: 1 tab Saccharomyces Boulardii (Florastor) 250 mg PO BID [facility] Last Admin: 12/13/16 10:54 Dose: 250 mg Vitamin A (Vitamin A & D Oint Ud Foilpak) 1 ea TOP BID [facility] Last Admin: 12/12/16 18:30 Dose: 1 ea - Labs Labs: 12/13/16 07:52 12/13/16 07:52 PT 13.5 SECONDS (9.7-12.2) H 12/07/16 06:44 INR 1.2 12/07/16 06:44 APTT 30 SECONDS (21-34) 12/07/16 06:44 - Constitutional Appears: Non-toxic, No Acute Distress - Head Exam Head Exam: ATRAUMATIC, NORMOCEPHALIC - Eye Exam Eye Exam: EOMI - ENT Exam ENT Exam: Mucous Membranes Moist - Respiratory Exam Respiratory Exam: Clear to Ausculation Bilateral, NORMAL BREATHING PATTERN - Cardiovascular Exam Cardiovascular Exam: +S1, +S2, Murmur - GI/Abdominal Exam GI & Abdominal Exam: Soft, Normal Bowel Sounds. absent: Tenderness - Extremities Exam Additional comments: right thigh skin graft donor site dressed, c/d/i b/l lower extremities with c/d/i dressings - Neurological Exam Neurological Exam: Alert, Awake - Psychiatric Exam Psychiatric exam: Normal Affect - Skin Skin Exam: Warm Assessment and Plan - Assessment and Plan (Free Text) Assessment: PVD complicated with bilateral Leg ulcers * 12/13: B/l dressing CDI. Patient responding well to treatment. Patient will stay in the hospital until 12/20 for IV antibiotics. * S/P bilateral LE Skin graft POD 5 * S/P bilateral leg debridement POD 26 * wound cultures: Alisha Parapsilosis * ID (Mangia) * Avycaz 2.5gr IV Q8 * Mycamine 100mg IV * Repeat labs 1-2 times weekly to monitor for side effects * Florastor 250 mg PO BID * Acetaminophen 975 mg PO Q8 prn for pain * percocet 1 tab q6prn severe pain * topical Vitamin A for wound * Surgery (Sharonda) * Q2 dressing changes Anemia likely secondary to chronic disease * 12/13: Hgb 10.2 stable. Continue current treatment. * Hgb 10.3 12/09/16 * Feosol 325mg PO daily Mild aortic stenosis, s/p bioprosthetic aortic valve replacement * Cardiology Consult, , f/u recs * ASA 81 mg PO daily * Plavix 75 mg PO daily * Lovenox 40 mg SC daily HTN * 12/13: BP stable, continue to monitor * Lopressor 50 mg PO BID. Neuropathy * Neurontin 100mg PO BID Constipation * Colace 100 mg PO TID * Lactulose 20 gr PO BID Prophylaxis * Pepcid 20mg PO BID * Florastor 250 mg PO BID * lovenox * patient ambulating well w/ PT Disposition * Patient will stay in the hospital until 12/20 for IV antibiotics. Patient unable to afford outpatient option. All medical management as per Dr. Parish Verdin
--- NOTE | 2016-12-13 14:18 | CP.PCM.PN ---
Subjective - Date & Time of Evaluation Date of Evaluation: 12/13/16 Time of Evaluation: 07:00 - Subjective Subjective: Pt S&E. NAEO. No complaints. Doing well. Objective - Vital Signs/Intake and Output Vital Signs (last 24 hours): Temp Pulse Resp BP Pulse Ox 98.3 F 80 20 125/69 98 12/13/16 08:24 12/13/16 10:54 12/13/16 08:24 12/13/16 10:54 12/13/16 08:24 Intake and Output: 12/13/16 12/13/16 06:59 18:59 Intake Total 700 Balance 700 - Medications Medications: Current Medications Aspirin (Aspirin Chewable) 81 mg PO DAILY [facility] Last Admin: 12/13/16 10:55 Dose: 81 mg Clopidogrel Bisulfate (Plavix) 75 mg PO DAILY [facility] Last Admin: 12/13/16 10:55 Dose: 75 mg Docusate Sodium (Colace) 100 mg PO TID [facility] Last Admin: 12/13/16 14:13 Dose: 100 mg Enoxaparin Sodium (Lovenox) 40 mg SC DAILY [facility] Last Admin: 12/13/16 10:56 Dose: 40 mg Famotidine (Pepcid) 20 mg PO BID [facility] Last Admin: 12/13/16 10:55 Dose: 20 mg Ferrous Sulfate (Feosol) 325 mg PO DAILY [facility] Last Admin: 12/13/16 10:56 Dose: 325 mg Gabapentin (Neurontin) 100 mg PO BID [facility] Last Admin: 12/13/16 10:56 Dose: 100 mg Ceftazidime/Avibactam 2.5 gm/ (Sodium Chloride) 100 mls @ 50 mls/hr IV Q8H [facility] Last Admin: 12/13/16 07:56 Dose: 50 mls/hr Micafungin Sodium 100 mg/ (Sodium Chloride) 100 mls @ 100 mls/hr IV DAILY [facility] Last Admin: 12/13/16 10:58 Dose: 100 mls/hr Lactulose (Enulose) 20 gm PO BID [facility] Last Admin: 12/13/16 10:56 Dose: Not Given Metoprolol Tartrate (Lopressor) 50 mg PO BID [facility] Last Admin: 12/13/16 10:54 Dose: 50 mg Oxycodone/Acetaminophen (Percocet 5/325 Mg Tab) 1 tab PO Q6H PRN PRN Reason: Pain, moderate (4-7) Stop: 12/16/16 09:52 Last Admin: 12/13/16 10:55 Dose: 1 tab Saccharomyces Boulardii (Florastor) 250 mg PO BID [facility] Last Admin: 12/13/16 10:54 Dose: 250 mg Vitamin A (Vitamin A & D Oint Ud Foilpak) 1 ea TOP BID [facility] Last Admin: 12/12/16 18:30 Dose: 1 ea - Labs Labs: 12/13/16 07:52 12/13/16 07:52 PT 13.5 SECONDS (9.7-12.2) H 12/07/16 06:44 INR 1.2 12/07/16 06:44 APTT 30 SECONDS (21-34) 12/07/16 06:44 - Constitutional Appears: No Acute Distress - Eye Exam Eye Exam: Normal appearance - Respiratory Exam Respiratory Exam: NORMAL BREATHING PATTERN - Cardiovascular Exam Cardiovascular Exam: +S1, +S2 - GI/Abdominal Exam GI & Abdominal Exam: Soft - Extremities Exam Additional comments: right thigh wound healing appropriately - Neurological Exam Neurological Exam: Alert, Oriented x3 - Psychiatric Exam Psychiatric exam: Normal Mood - Skin Skin Exam: Dry, Intact, Warm Assessment and Plan - Assessment and Plan (Free Text) Assessment: 81M s/p skin graft placement on b/l ankles, right thigh donor site POD 6 -keep ankle dressings on- do not touch - right thigh dressing was changed. Wound is healing appropriately. -Further recs per Dr. Ron Epps PGY-2
[2016-12-13] MEDS: Vitamins A & D Oint UD Foilpak TOP SCH (17:52)
[2016-12-14 07:19] LABS: BASO # 0.1 K/uL (0.0-0.2); BASO % 0.6 % (0.0-2.0); EOS # 0.5 K/uL (0.0-0.7); HEMATOCRIT 34.9 % (35.0-51.0); LYMPH # 2.5 K/uL (1.0-4.3); LYMPH % 28.9 % (20.0-40.0); MEAN CELL VOLUME 73.4 fL (80.0-94.0); MEAN CORPUSCULAR HEMOGLOBIN 22.7 pg (27.0-31.0); MEAN PLATELET VOLUME 9.9 fL (7.2-11.7); MONO # 1.2 K/uL (0.0-0.8); MONO % 13.6 % (0.0-10.0); NRBC % 0.1 % (0.0-2.0); RED CELL DISTRIBUTION WIDTH 27.3 % (11.5-14.5); WHITE BLOOD COUNT 8.6 K/uL (4.8-10.8)
[2016-12-14 07:49] LABS: CHLORIDE 102 mmol/L (98-107); SODIUM 140 mmol/L (132-148)
[2016-12-14 07:50] LABS: POTASSIUM 4.5 mmol/L (3.6-5.2)
[2016-12-14 07:51] LABS: GFR AFRICAN-AMERICAN > 60
[2016-12-14 07:52] LABS: ALB/GLOB RATIO 0.8 (1.0-2.1); ALKALINE PHOSPHATASE 92 U/L (38-126); ALT/SGPT 29 U/L (21-72); AST/SGOT 28 U/L (17-59); BILIRUBIN,TOTAL 0.4 mg/dL (0.2-1.3); BLOOD UREA NITROGEN 17 mg/dL (9-20); CARBON DIOXIDE 29 mmol/L (22-30); GLUCOSE,RANDOM 91 mg/dL (75-110); PHOSPHOROUS 3.9 mg/dL (2.5-4.5); TOTAL PROTEIN 7.6 g/dL (6.3-8.3)
[2016-12-14 07:53] LABS: CALCIUM 9.9 mg/dl (8.6-10.4); MAGNESIUM 2.1 mg/dL (1.6-2.3)
[2016-12-14] MEDS: Saccharomyces Boulardi 250 mg Cap PO SCH ×2 (09:34→17:41)
[2016-12-14] MEDS: Vitamins A & D Oint UD Foilpak TOP SCH ×2 (09:34→17:41)
[2016-12-14] MEDS: Enoxaparin 40 mg Syringe SC SCH (09:35)
[2016-12-14] MEDS: Micafungin 100 MG in Sodium Chloride 0.9% 100 ML IV SCH (09:36)
--- NOTE | 2016-12-14 11:10 | CP.PCM.PN ---
Subjective - Date & Time of Evaluation Date of Evaluation: 12/14/16 Time of Evaluation: 07:30 - Subjective Subjective: Medicine progress note for Dr. Verdin: Patient seen and examined. Patient states pain better-controlled today. Patient states he is eating well. Patient ambulating well with PT. Objective - Vital Signs/Intake and Output Vital Signs (last 24 hours): Temp Pulse Resp BP Pulse Ox 98.1 F 89 20 148/77 95 12/14/16 08:34 12/14/16 08:34 12/14/16 08:34 12/14/16 08:34 12/14/16 08:34 Intake and Output: 12/14/16 12/14/16 06:59 18:59 Intake Total 360 Balance 360 - Medications Medications: Current Medications Aspirin (Aspirin Chewable) 81 mg PO DAILY [facility] Last Admin: 12/14/16 09:35 Dose: 81 mg Clopidogrel Bisulfate (Plavix) 75 mg PO DAILY [facility] Last Admin: 12/14/16 09:34 Dose: 75 mg Docusate Sodium (Colace) 100 mg PO TID [facility] Last Admin: 12/14/16 09:34 Dose: 100 mg Enoxaparin Sodium (Lovenox) 40 mg SC DAILY [facility] Last Admin: 12/14/16 09:35 Dose: 40 mg Famotidine (Pepcid) 20 mg PO BID [facility] Last Admin: 12/14/16 09:35 Dose: 20 mg Ferrous Sulfate (Feosol) 325 mg PO DAILY [facility] Last Admin: 12/14/16 09:34 Dose: 325 mg Gabapentin (Neurontin) 100 mg PO BID [facility] Last Admin: 12/14/16 09:35 Dose: 100 mg Ceftazidime/Avibactam 2.5 gm/ (Sodium Chloride) 100 mls @ 50 mls/hr IV Q8H [facility] Last Admin: 12/14/16 08:00 Dose: 50 mls/hr Micafungin Sodium 100 mg/ (Sodium Chloride) 100 mls @ 100 mls/hr IV DAILY [facility] Last Admin: 12/14/16 09:36 Dose: 100 mls/hr Lactulose (Enulose) 20 gm PO BID [facility] Last Admin: 12/14/16 09:49 Dose: Not Given Metoprolol Tartrate (Lopressor) 50 mg PO BID [facility] Last Admin: 12/14/16 09:52 Dose: 50 mg Oxycodone/Acetaminophen (Percocet 5/325 Mg Tab) 1 tab PO Q6H PRN PRN Reason: Pain, moderate (4-7) Stop: 12/16/16 09:52 Last Admin: 12/13/16 22:54 Dose: 1 tab Saccharomyces Boulardii (Florastor) 250 mg PO BID [facility] Last Admin: 12/14/16 09:34 Dose: 250 mg Vitamin A (Vitamin A & D Oint Ud Foilpak) 1 ea TOP BID [facility] Last Admin: 12/14/16 09:34 Dose: 1 ea - Labs Labs: 12/14/16 07:01 12/14/16 07:01 PT 13.5 SECONDS (9.7-12.2) H 12/07/16 06:44 INR 1.2 12/07/16 06:44 APTT 30 SECONDS (21-34) 12/07/16 06:44 - Constitutional Appears: Non-toxic, No Acute Distress - Head Exam Head Exam: ATRAUMATIC, NORMOCEPHALIC - Eye Exam Eye Exam: EOMI - ENT Exam ENT Exam: Mucous Membranes Dry - Respiratory Exam Respiratory Exam: Clear to Ausculation Bilateral, NORMAL BREATHING PATTERN - Cardiovascular Exam Cardiovascular Exam: +S1, +S2, Murmur - GI/Abdominal Exam GI & Abdominal Exam: Soft, Normal Bowel Sounds. absent: Tenderness - Extremities Exam Additional comments: b/l lower extremities wrapped, dressing C/D/I mild b/l swelling superior to dressing - Neurological Exam Neurological Exam: Alert, Awake - Psychiatric Exam Psychiatric exam: Normal Affect - Skin Skin Exam: Dry, Warm Assessment and Plan - Assessment and Plan (Free Text) Assessment: PVD complicated with bilateral Leg ulcers * 12/14: B/l dressing CDI. Patient responding well to treatment. Patient will stay in the hospital until 12/20 for IV antibiotics. * S/P bilateral LE Skin graft POD 7 * S/P bilateral leg debridement 11/15/16 * wound cultures: Alisha Parapsilosis * ID (Mangia) * Avycaz 2.5gr IV Q8 * Mycamine 100mg IV * Repeat labs 1-2 times weekly to monitor for side effects * Florastor 250 mg PO BID * Acetaminophen 975 mg PO Q8 prn for pain * percocet 1 tab q6prn severe pain * topical Vitamin A for wound * Surgery (Sharonda) * Q2 day dressing changes Anemia likely secondary to chronic disease * 12/14: Hgb 10.8 stable. Continue current treatment. * Feosol 325mg PO daily Mild aortic stenosis, s/p bioprosthetic aortic valve replacement * Cardiology Consult, , f/u recs * ASA 81 mg PO daily * Plavix 75 mg PO daily * Lovenox 40 mg SC daily HTN * 12/14: BP stable, continue to monitor * Lopressor 50 mg PO BID. Neuropathy * Neurontin 100mg PO BID Constipation * Colace 100 mg PO TID * Lactulose 20 gr PO BID Prophylaxis * Pepcid 20mg PO BID * Florastor 250 mg PO BID * lovenox * patient ambulating well w/ PT Disposition * Patient will stay in the hospital until 12/20 for IV antibiotics. Patient unable to afford outpatient option. All medical management as per Dr. Verdin
[2016-12-14] MEDS: Oxycodone/Acetaminophen 5/325 mg Tab PO PRN (17:45)
[2016-12-15] MEDS: Oxycodone/Acetaminophen 5/325 mg Tab PO PRN ×3 (00:18→18:45)
[2016-12-15 00:58] VITALS: RESP 20
--- NOTE | 2016-12-15 07:40 | CP.PCM.PN ---
Subjective - Date & Time of Evaluation Date of Evaluation: 12/15/16 Time of Evaluation: 07:45 - Subjective Subjective: PGY 2 Progress Note- Dr. Verdin's service Pt seen and examined in no acute distress. Pt is s/p skin graft placement on b/ l ankles. Patient states that he has no complaints at this time. He is ambulating out of bed to chair. Patient encouraged to put bed rails up. Objective - Vital Signs/Intake and Output Vital Signs (last 24 hours): Temp Pulse Resp BP Pulse Ox 97.6 F 67 20 138/83 100 12/15/16 04:40 12/15/16 04:40 12/15/16 04:40 12/15/16 04:40 12/15/16 04:40 - Medications Medications: Current Medications Aspirin (Aspirin Chewable) 81 mg PO DAILY [facility] Last Admin: 12/14/16 09:35 Dose: 81 mg Clopidogrel Bisulfate (Plavix) 75 mg PO DAILY [facility] Last Admin: 12/14/16 09:34 Dose: 75 mg Docusate Sodium (Colace) 100 mg PO TID [facility] Last Admin: 12/14/16 17:41 Dose: 100 mg Enoxaparin Sodium (Lovenox) 40 mg SC DAILY [facility] Last Admin: 12/14/16 09:35 Dose: 40 mg Famotidine (Pepcid) 20 mg PO BID [facility] Last Admin: 12/14/16 17:41 Dose: 20 mg Ferrous Sulfate (Feosol) 325 mg PO DAILY [facility] Last Admin: 12/14/16 09:34 Dose: 325 mg Gabapentin (Neurontin) 100 mg PO BID [facility] Last Admin: 12/14/16 17:41 Dose: 100 mg Ceftazidime/Avibactam 2.5 gm/ (Sodium Chloride) 100 mls @ 50 mls/hr IV Q8H [facility] Last Admin: 12/15/16 00:04 Dose: 50 mls/hr Micafungin Sodium 100 mg/ (Sodium Chloride) 100 mls @ 100 mls/hr IV DAILY [facility] Last Admin: 12/14/16 09:36 Dose: 100 mls/hr Lactulose (Enulose) 20 gm PO BID [facility] Last Admin: 12/14/16 09:49 Dose: Not Given Metoprolol Tartrate (Lopressor) 50 mg PO BID [facility] Last Admin: 12/14/16 17:41 Dose: 50 mg Oxycodone/Acetaminophen (Percocet 5/325 Mg Tab) 1 tab PO Q6H PRN PRN Reason: Pain, moderate (4-7) Stop: 12/16/16 09:52 Last Admin: 12/15/16 00:18 Dose: 1 tab Saccharomyces Boulardii (Florastor) 250 mg PO BID [facility] Last Admin: 12/14/16 17:41 Dose: 250 mg Vitamin A (Vitamin A & D Oint Ud Foilpak) 1 ea TOP BID [facility] Last Admin: 12/14/16 17:41 Dose: 1 ea - Labs Labs: 12/14/16 07:01 12/14/16 07:01 PT 13.5 SECONDS (9.7-12.2) H 12/07/16 06:44 INR 1.2 12/07/16 06:44 APTT 30 SECONDS (21-34) 12/07/16 06:44 - Constitutional Appears: Non-toxic, No Acute Distress - Head Exam Head Exam: ATRAUMATIC, NORMAL INSPECTION, NORMOCEPHALIC - Eye Exam Eye Exam: EOMI, Normal appearance, PERRL Pupil Exam: NORMAL ACCOMODATION - ENT Exam ENT Exam: Mucous Membranes Moist - Neck Exam Neck Exam: Full ROM - Respiratory Exam Respiratory Exam: NORMAL BREATHING PATTERN - Cardiovascular Exam Cardiovascular Exam: Murmur - GI/Abdominal Exam GI & Abdominal Exam: Soft, Normal Bowel Sounds - Extremities Exam Extremities Exam: Normal Capillary Refill, Pedal Edema Additional comments: b/l lower extremities wrapped, dressing c/d/i, trace edema noted - Back Exam Back Exam: Full ROM - Neurological Exam Neurological Exam: Alert, Awake, Oriented x3 - Psychiatric Exam Psychiatric exam: Normal Affect, Normal Mood - Skin Skin Exam: Dry, Warm Assessment and Plan - Assessment and Plan (Free Text) Assessment: PVD complicated with bilateral Leg ulcers * Patient responding well to treatment. Patient will stay in the hospital until 12/20 for IV antibiotics. * S/P bilateral LE Skin graft POD 8 * S/P bilateral leg debridement 11/15/16 * Wound cultures: Alisha Parapsilosis * ID (Mangia) * Ceftazidine/Avibactam 2.5g IV Q8 * Mycamine 100mg IV * Repeat labs 1-2 times weekly to monitor for side effects * Florastor 250 mg PO BID * percocet 1 tab q6prn severe pain * topical Vitamin A for wound * Surgery (Sharonda) * Q2 day dressing changes Anemia likely secondary to chronic disease * Hgb stable. Continue current treatment. * Feosol 325mg PO daily Mild aortic stenosis, s/p bioprosthetic aortic valve replacement * Cardiology Consult, - Continue current management * ASA 81 mg PO daily * Plavix 75 mg PO daily * Lovenox 40 mg SC daily * Lopressor 50 mg PO BID HTN * BP stable, continue to monitor * Lopressor 50 mg PO BID. Neuropathy * Neurontin 100mg PO BID Constipation * Colace 100 mg PO TID * Lactulose 20 g PO BID * Encourage water intake Prophylaxis * Pepcid 20mg PO BID * Florastor 250 mg PO BID * Lovenox 40 SC daily * Continue Physical Therapy * Encourage incentive spirometry Disposition * Patient will stay in the hospital until 12/20 for IV antibiotics. Patient unable to afford outpatient option. Discussed with attending physician. All medical management as per Dr. Verdin
[2016-12-15] MEDS: Saccharomyces Boulardi 250 mg Cap PO SCH ×2 (09:12→18:45)
[2016-12-15] MEDS: Vitamins A & D Oint UD Foilpak TOP SCH ×2 (09:13→18:46)
[2016-12-15] MEDS: Enoxaparin 40 mg Syringe SC SCH (09:14)
[2016-12-15] MEDS: Micafungin 100 MG in Sodium Chloride 0.9% 100 ML IV SCH (09:52)
--- NOTE | 2016-12-15 14:13 | CP.PCM.PN ---
Subjective - Date & Time of Evaluation Date of Evaluation: 12/15/16 Time of Evaluation: 14:12 - Subjective Subjective: Surgery Pt s&e. NAEON. c/o bl LE pain. Denies F/C/N/V/D/CP/SOB. Dressing changed by attending this AM. Objective - Vital Signs/Intake and Output Vital Signs (last 24 hours): Temp Pulse Resp BP Pulse Ox 97.6 F 63 20 112/53 L 95 12/15/16 08:36 12/15/16 08:36 12/15/16 08:36 12/15/16 08:36 12/15/16 08:36 - Medications Medications: Current Medications Aspirin (Aspirin Chewable) 81 mg PO DAILY [facility] Last Admin: 12/15/16 09:13 Dose: 81 mg Clopidogrel Bisulfate (Plavix) 75 mg PO DAILY [facility] Last Admin: 12/15/16 09:13 Dose: 75 mg Docusate Sodium (Colace) 100 mg PO TID [facility] Last Admin: 12/15/16 13:07 Dose: 100 mg Enoxaparin Sodium (Lovenox) 40 mg SC DAILY [facility] Last Admin: 12/15/16 09:14 Dose: 40 mg Famotidine (Pepcid) 20 mg PO BID [facility] Last Admin: 12/15/16 09:13 Dose: 20 mg Ferrous Sulfate (Feosol) 325 mg PO DAILY [facility] Last Admin: 12/15/16 09:12 Dose: 325 mg Gabapentin (Neurontin) 100 mg PO BID [facility] Last Admin: 12/15/16 09:12 Dose: 100 mg Ceftazidime/Avibactam 2.5 gm/ (Sodium Chloride) 100 mls @ 50 mls/hr IV Q8H [facility] Last Admin: 12/15/16 07:41 Dose: 50 mls/hr Micafungin Sodium 100 mg/ (Sodium Chloride) 100 mls @ 100 mls/hr IV DAILY [facility] Last Admin: 12/15/16 09:52 Dose: 100 mls/hr Lactulose (Enulose) 20 gm PO BID [facility] Last Admin: 12/15/16 09:14 Dose: Not Given Metoprolol Tartrate (Lopressor) 50 mg PO BID [facility] Last Admin: 12/15/16 09:12 Dose: 50 mg Oxycodone/Acetaminophen (Percocet 5/325 Mg Tab) 1 tab PO Q6H PRN PRN Reason: Pain, moderate (4-7) Stop: 12/16/16 09:52 Last Admin: 12/15/16 09:49 Dose: 1 tab Saccharomyces Boulardii (Florastor) 250 mg PO BID [facility] Last Admin: 12/15/16 09:12 Dose: 250 mg Vitamin A (Vitamin A & D Oint Ud Foilpak) 1 ea TOP BID [facility] Last Admin: 12/15/16 09:13 Dose: 1 ea - Labs Labs: 12/14/16 07:01 12/14/16 07:01 PT 13.5 SECONDS (9.7-12.2) H 12/07/16 06:44 INR 1.2 12/07/16 06:44 APTT 30 SECONDS (21-34) 12/07/16 06:44 - Constitutional Appears: No Acute Distress - Head Exam Head Exam: ATRAUMATIC, NORMAL INSPECTION, NORMOCEPHALIC - Eye Exam Eye Exam: EOMI, Normal appearance, PERRL Pupil Exam: NORMAL ACCOMODATION, PERRL - ENT Exam ENT Exam: Mucous Membranes Moist, Normal Exam - Neck Exam Neck Exam: Full ROM, Normal Inspection. absent: Lymphadenopathy - Respiratory Exam Respiratory Exam: Clear to Ausculation Bilateral, NORMAL BREATHING PATTERN - Cardiovascular Exam Cardiovascular Exam: REGULAR RHYTHM, +S1, +S2. absent: Murmur - GI/Abdominal Exam GI & Abdominal Exam: Soft, Normal Bowel Sounds. absent: Distended, Tenderness - Extremities Exam Extremities Exam: Pedal Edema, Tenderness. absent: Normal Capillary Refill, Normal Inspection Additional comments: Dressing C/D/I. Discoloration on b/l LE. R thigh also has dressing. - Back Exam Back Exam: NORMAL INSPECTION - Neurological Exam Neurological Exam: Alert, Awake, CN II-XII Intact, Oriented x3 - Psychiatric Exam Psychiatric exam: Normal Affect, Normal Mood - Skin Skin Exam: Dry, Erythema, Intact, Warm Assessment and Plan - Assessment and Plan (Free Text) Assessment: 81M s/p skin graft placement on b/l ankles, right thigh donor site POD 8 -keep ankle dressings on- do not touch - right thigh dressing was changed. Wound is healing appropriately. -Further recs per Dr. Velasquez
[2016-12-16] MEDS: Oxycodone/Acetaminophen 5/325 mg Tab PO PRN ×3 (02:00→17:25)
[2016-12-16] MEDS: Enoxaparin 40 mg Syringe SC SCH (10:57)
[2016-12-16] MEDS: Vitamins A & D Oint UD Foilpak TOP SCH ×2 (10:57→17:25)
[2016-12-16] MEDS: Saccharomyces Boulardi 250 mg Cap PO SCH ×2 (10:57→17:25)
[2016-12-16] MEDS: Micafungin 100 MG in Sodium Chloride 0.9% 100 ML IV SCH (10:57)
--- NOTE | 2016-12-16 11:57 | CP.PCM.PN ---
Subjective - Date & Time of Evaluation Date of Evaluation: 12/16/16 Time of Evaluation: 06:30 - Subjective Subjective: Vascular Surgery- Dr. Velasquez Pt S&E at bedside this AM. NAEON. c/o bl LE pain. Pt states he would like to go home. Denies current F/C/N/V/D/CP/SOB. Objective - Vital Signs/Intake and Output Vital Signs (last 24 hours): Temp Pulse Resp BP Pulse Ox 98.2 F 90 20 110/80 96 12/16/16 08:13 12/16/16 08:13 12/16/16 08:13 12/16/16 08:13 12/16/16 08:13 - Medications Medications: Current Medications Aspirin (Aspirin Chewable) 81 mg PO DAILY [facility] Last Admin: 12/16/16 10:57 Dose: 81 mg Clopidogrel Bisulfate (Plavix) 75 mg PO DAILY [facility] Last Admin: 12/16/16 10:57 Dose: 75 mg Docusate Sodium (Colace) 100 mg PO TID [facility] Last Admin: 12/16/16 10:57 Dose: 100 mg Enoxaparin Sodium (Lovenox) 40 mg SC DAILY [facility] Last Admin: 12/16/16 10:57 Dose: 40 mg Famotidine (Pepcid) 20 mg PO BID [facility] Last Admin: 12/16/16 10:57 Dose: 20 mg Ferrous Sulfate (Feosol) 325 mg PO DAILY [facility] Last Admin: 12/16/16 10:57 Dose: 325 mg Gabapentin (Neurontin) 100 mg PO BID [facility] Last Admin: 12/16/16 10:57 Dose: 100 mg Ceftazidime/Avibactam 2.5 gm/ (Sodium Chloride) 100 mls @ 50 mls/hr IV Q8H [facility] Last Admin: 12/16/16 08:18 Dose: 50 mls/hr Micafungin Sodium 100 mg/ (Sodium Chloride) 100 mls @ 100 mls/hr IV DAILY [facility] Last Admin: 12/16/16 10:57 Dose: 100 mls/hr Lactulose (Enulose) 20 gm PO BID [facility] Last Admin: 12/16/16 10:57 Dose: 20 gm Metoprolol Tartrate (Lopressor) 50 mg PO BID [facility] Last Admin: 12/16/16 10:57 Dose: 50 mg Saccharomyces Boulardii (Florastor) 250 mg PO BID [facility] Last Admin: 12/16/16 10:57 Dose: 250 mg Vitamin A (Vitamin A & D Oint Ud Foilpak) 1 ea TOP BID [facility] Last Admin: 12/16/16 10:57 Dose: 1 ea - Labs Labs: 12/14/16 07:01 12/14/16 07:01 PT 13.5 SECONDS (9.7-12.2) H 12/07/16 06:44 INR 1.2 12/07/16 06:44 APTT 30 SECONDS (21-34) 12/07/16 06:44 - Constitutional Appears: Non-toxic, No Acute Distress - Eye Exam Eye Exam: EOMI - ENT Exam ENT Exam: Mucous Membranes Moist - Respiratory Exam Respiratory Exam: NORMAL BREATHING PATTERN. absent: Accessory Muscle Use, Rales , Rhonchi - Cardiovascular Exam Cardiovascular Exam: +S1, +S2 - GI/Abdominal Exam GI & Abdominal Exam: Soft. absent: Distended, Tenderness - Extremities Exam Additional comments: B/L LE wrapped/ Dressing C/D/I. Site from skin graft healing well. - Neurological Exam Neurological Exam: Alert, Awake, Oriented x3 - Skin Skin Exam: Intact, Normal Color Assessment and Plan - Assessment and Plan (Free Text) Assessment: 81M s/p skin graft placement on b/l ankles, right thigh donor site POD 9 - keep ankle dressings on - Further recs per Dr. Ron Guardado PGY1
[2016-12-17] MEDS: Oxycodone/Acetaminophen 5/325 mg Tab PO PRN ×3 (01:47→21:42)
[2016-12-17] MEDS: Saccharomyces Boulardi 250 mg Cap PO SCH ×2 (10:33→18:12)
[2016-12-17] MEDS: Vitamins A & D Oint UD Foilpak TOP SCH ×2 (10:33→18:11)
[2016-12-17] MEDS: Micafungin 100 MG in Sodium Chloride 0.9% 100 ML IV SCH (10:33)
[2016-12-17] MEDS: Enoxaparin 40 mg Syringe SC SCH (10:34)
--- NOTE | 2016-12-17 11:33 | CP.PCM.PN ---
Subjective - Date & Time of Evaluation Date of Evaluation: 12/17/16 Time of Evaluation: 11:32 - Subjective Subjective: Surgery: Dr Velasquez Pt S&E. NAEO. Resting comfortably. No complaint. Pt is clear for discharge from surgery, pending evaluation and clearance from infectious disease. Objective - Vital Signs/Intake and Output Vital Signs (last 24 hours): Temp Pulse Resp BP Pulse Ox 97.7 F 68 20 149/99 H 97 12/17/16 08:47 12/17/16 08:47 12/17/16 08:47 12/17/16 08:47 12/17/16 08:47 - Medications Medications: Current Medications Aspirin (Aspirin Chewable) 81 mg PO DAILY [facility] Last Admin: 12/17/16 10:33 Dose: 81 mg Clopidogrel Bisulfate (Plavix) 75 mg PO DAILY [facility] Last Admin: 12/17/16 10:33 Dose: 75 mg Docusate Sodium (Colace) 100 mg PO TID [facility] Last Admin: 12/17/16 10:32 Dose: 100 mg Enoxaparin Sodium (Lovenox) 40 mg SC DAILY [facility] Last Admin: 12/17/16 10:34 Dose: 40 mg Famotidine (Pepcid) 20 mg PO BID [facility] Last Admin: 12/17/16 10:33 Dose: 20 mg Ferrous Sulfate (Feosol) 325 mg PO DAILY [facility] Last Admin: 12/17/16 10:33 Dose: 325 mg Gabapentin (Neurontin) 100 mg PO BID [facility] Last Admin: 12/17/16 10:33 Dose: 100 mg Micafungin Sodium 100 mg/ (Sodium Chloride) 100 mls @ 100 mls/hr IV DAILY [facility] Last Admin: 12/17/16 10:33 Dose: 100 mls/hr Lactulose (Enulose) 20 gm PO BID [facility] Last Admin: 12/17/16 10:33 Dose: 20 gm Metoprolol Tartrate (Lopressor) 50 mg PO BID [facility] Last Admin: 12/17/16 10:33 Dose: 50 mg Oxycodone/Acetaminophen (Percocet 5/325 Mg Tab) 1 tab PO Q4H PRN PRN Reason: Pain, moderate (4-7) Stop: 12/19/16 16:21 Last Admin: 12/17/16 10:40 Dose: 1 tab Saccharomyces Boulardii (Florastor) 250 mg PO BID [facility] Last Admin: 12/17/16 10:33 Dose: 250 mg Vitamin A (Vitamin A & D Oint Ud Foilpak) 1 ea TOP BID [facility] Last Admin: 12/17/16 10:33 Dose: 1 ea - Labs Labs: 12/14/16 07:01 12/14/16 07:01 PT 13.5 SECONDS (9.7-12.2) H 12/07/16 06:44 INR 1.2 12/07/16 06:44 APTT 30 SECONDS (21-34) 12/07/16 06:44 - Constitutional Appears: Non-toxic, No Acute Distress - Respiratory Exam Respiratory Exam: absent: Accessory Muscle Use, Respiratory Distress - Cardiovascular Exam Cardiovascular Exam: REGULAR RHYTHM - Extremities Exam Additional comments: lower extremities in jaspal bandages, c/d/i - Neurological Exam Neurological Exam: Alert, Awake, Oriented x3 Assessment and Plan - Assessment and Plan (Free Text) Assessment: 81M POD#10 s/l LE skin grafts Plan: clear for d/c from surgical team follow up in office next week d/w Dr Ron Ritter, PGY3
--- NOTE | 2016-12-17 14:21 | CP.PCM.PN ---
Subjective - Date & Time of Evaluation Date of Evaluation: 12/17/16 Time of Evaluation: 08:00 - Subjective Subjective: discussed with dr hickman wounds are finally dry and free of exhudate iv antibiotics to be d/c'd follow up with PMD and vascular Objective - Vital Signs/Intake and Output Vital Signs (last 24 hours): Temp Pulse Resp BP Pulse Ox 97.7 F 68 20 149/99 H 97 12/17/16 08:47 12/17/16 08:47 12/17/16 08:47 12/17/16 08:47 12/17/16 08:47 - Medications Medications: Current Medications Aspirin (Aspirin Chewable) 81 mg PO DAILY [facility] Last Admin: 12/17/16 10:33 Dose: 81 mg Clopidogrel Bisulfate (Plavix) 75 mg PO DAILY [facility] Last Admin: 12/17/16 10:33 Dose: 75 mg Docusate Sodium (Colace) 100 mg PO TID [facility] Last Admin: 12/17/16 13:34 Dose: Not Given Enoxaparin Sodium (Lovenox) 40 mg SC DAILY [facility] Last Admin: 12/17/16 10:34 Dose: 40 mg Famotidine (Pepcid) 20 mg PO BID [facility] Last Admin: 12/17/16 10:33 Dose: 20 mg Ferrous Sulfate (Feosol) 325 mg PO DAILY [facility] Last Admin: 12/17/16 10:33 Dose: 325 mg Gabapentin (Neurontin) 100 mg PO BID [facility] Last Admin: 12/17/16 10:33 Dose: 100 mg Micafungin Sodium 100 mg/ (Sodium Chloride) 100 mls @ 100 mls/hr IV DAILY [facility] Last Admin: 12/17/16 10:33 Dose: 100 mls/hr Lactulose (Enulose) 20 gm PO BID [facility] Last Admin: 12/17/16 10:33 Dose: 20 gm Metoprolol Tartrate (Lopressor) 50 mg PO BID [facility] Last Admin: 12/17/16 10:33 Dose: 50 mg Oxycodone/Acetaminophen (Percocet 5/325 Mg Tab) 1 tab PO Q4H PRN PRN Reason: Pain, moderate (4-7) Stop: 12/19/16 16:21 Last Admin: 12/17/16 10:40 Dose: 1 tab Saccharomyces Boulardii (Florastor) 250 mg PO BID [facility] Last Admin: 12/17/16 10:33 Dose: 250 mg Vitamin A (Vitamin A & D Oint Ud Foilpak) 1 ea TOP BID [facility] Last Admin: 12/17/16 10:33 Dose: 1 ea - Labs Labs: 12/14/16 07:01 12/14/16 07:01 PT 13.5 SECONDS (9.7-12.2) H 12/07/16 06:44 INR 1.2 12/07/16 06:44 APTT 30 SECONDS (21-34) 12/07/16 06:44 - Constitutional Appears: Non-toxic, Chronically Ill - Head Exam Head Exam: NORMOCEPHALIC - Eye Exam Eye Exam: PERRL - ENT Exam ENT Exam: Mucous Membranes Dry - Neck Exam Neck Exam: absent: Lymphadenopathy - Respiratory Exam Respiratory Exam: Decreased Breath Sounds - Cardiovascular Exam Cardiovascular Exam: REGULAR RHYTHM - GI/Abdominal Exam GI & Abdominal Exam: Distended Assessment and Plan (1) Cellulitis Status: Acute (2) Dehydration Status: Acute
[2016-12-18] MEDS: Saccharomyces Boulardi 250 mg Cap PO SCH ×2 (10:23→17:49)
[2016-12-18] MEDS: Vitamins A & D Oint UD Foilpak TOP SCH ×2 (10:23→17:52)
[2016-12-18] MEDS: Enoxaparin 40 mg Syringe SC SCH (10:23)
[2016-12-18] MEDS: Micafungin 100 MG in Sodium Chloride 0.9% 100 ML IV SCH (10:30)
[2016-12-18 16:04] VITALS: TEMP 98.1
[2016-12-18] MEDS: Oxycodone/Acetaminophen 5/325 mg Tab PO PRN (17:52)
[2016-12-19 07:38] LABS: BASO # 0.1 K/uL (0.0-0.2); BASO % 0.7 % (0.0-2.0); EOS # 0.5 K/uL (0.0-0.7); EOS % 6.5 % (0.0-4.0); HEMATOCRIT 36.1 % (35.0-51.0); LYMPH # 2.6 K/uL (1.0-4.3); LYMPH % 32.3 % (20.0-40.0); MEAN CELL VOLUME 74.5 fL (80.0-94.0); MEAN CORPUSCULAR HEMOGLOBIN 22.8 pg (27.0-31.0); MEAN CORPUSCULAR HGB CONC 30.6 g/dL (33.0-37.0); MEAN PLATELET VOLUME 9.7 fL (7.2-11.7); MONO % 12.7 % (0.0-10.0); NRBC % 0.2 % (0.0-2.0); RED CELL DISTRIBUTION WIDTH 27.4 % (11.5-14.5); WHITE BLOOD COUNT 8.1 K/uL (4.8-10.8)
[2016-12-19 07:55] LABS: CHLORIDE 105 mmol/L (98-107)
[2016-12-19 07:56] LABS: POTASSIUM 4.3 mmol/L (3.6-5.2); SODIUM 143 mmol/L (132-148)
[2016-12-19 07:58] LABS: ALKALINE PHOSPHATASE 90 U/L (38-126); AST/SGOT 30 U/L (17-59); BILIRUBIN,TOTAL 0.6 mg/dL (0.2-1.3); CARBON DIOXIDE 26 mmol/L (22-30); GFR AFRICAN-AMERICAN > 60; TOTAL PROTEIN 7.6 g/dL (6.3-8.3)
[2016-12-19 07:59] LABS: ALT/SGPT 29 U/L (21-72); BLOOD UREA NITROGEN 16 mg/dL (9-20); CALCIUM 9.6 mg/dl (8.6-10.4); GLUCOSE,RANDOM 102 mg/dL (75-110); MAGNESIUM 1.9 mg/dL (1.6-2.3); PHOSPHOROUS 3.3 mg/dL (2.5-4.5)
[2016-12-19 08:40] VITALS: O2SAT 98
--- NOTE | 2016-12-19 09:57 | CP.PCM.PN ---
Subjective - Date & Time of Evaluation Date of Evaluation: 12/19/16 Time of Evaluation: 07:30 - Subjective Subjective: PGY2 Resident - Medicine Progress Note Patient seen and examined at bedside. No overnight events per nursing. Patient resting comfortably, tolerating diet, normal/regular BMs. Completed course of IV abx. Stably for DC per surgery, ID, and Dr. Verdin. Denies fever, chills, headache, changes in vision, chest pain, palpitations, dyspnea, cough, abdominal pain, nausea/vomiting, diarrhea/constipation, dysuria, urinary frequency, change in urinary stream, or any additional acute complaints. ---- Patient is stable for discharge home per Dr. Verdin. Patient should resume all medications as outlined in this document. Additionally, patient should take the new medications listed below (scripts provided). Patient will follow up with PMD and Vascular surgery within 1 week of hospital discharge. Patient was provide with elastic stockings - please wear on both lower extremities continuously, until you meet with vascular surgery. Patient should return to ED immediately if symptoms return or worsen. Instructions discussed with patient who understood and agreed. Newly prescribed medications: Plavix 75mg PO QD #30 Colace 100mg PO TID #90 (stop for 1 day if you have more than 1 watery bowel movement in a day) Feosol 325mg PO qD #30 Neurontin 100mg PO BID #60 Objective - Vital Signs/Intake and Output Vital Signs (last 24 hours): Temp Pulse Resp BP Pulse Ox 98.1 F 80 20 150/67 98 12/19/16 08:39 12/19/16 08:39 12/19/16 08:39 12/19/16 08:39 12/19/16 08:39 - Medications Medications: Current Medications Aspirin (Aspirin Chewable) 81 mg PO DAILY [facility] Last Admin: 12/18/16 10:22 Dose: 81 mg Clopidogrel Bisulfate (Plavix) 75 mg PO DAILY [facility] Last Admin: 12/18/16 10:22 Dose: 75 mg Docusate Sodium (Colace) 100 mg PO TID [facility] Last Admin: 12/18/16 17:49 Dose: 100 mg Enoxaparin Sodium (Lovenox) 40 mg SC DAILY [facility] Last Admin: 12/18/16 10:23 Dose: 40 mg Famotidine (Pepcid) 20 mg PO BID [facility] Last Admin: 12/18/16 17:49 Dose: 20 mg Ferrous Sulfate (Feosol) 325 mg PO DAILY [facility] Last Admin: 12/18/16 10:23 Dose: 325 mg Gabapentin (Neurontin) 100 mg PO BID [facility] Last Admin: 12/18/16 17:49 Dose: 100 mg Micafungin Sodium 100 mg/ (Sodium Chloride) 100 mls @ 100 mls/hr IV DAILY [facility] Last Admin: 12/18/16 10:30 Dose: 100 mls/hr Lactulose (Enulose) 20 gm PO BID [facility] Last Admin: 12/18/16 17:49 Dose: Not Given Metoprolol Tartrate (Lopressor) 50 mg PO BID [facility] Last Admin: 12/18/16 17:49 Dose: Not Given Oxycodone/Acetaminophen (Percocet 5/325 Mg Tab) 1 tab PO Q4H PRN PRN Reason: Pain, moderate (4-7) Stop: 12/19/16 16:21 Last Admin: 12/18/16 17:52 Dose: 1 tab Saccharomyces Boulardii (Florastor) 250 mg PO BID [facility] Last Admin: 12/18/16 17:49 Dose: 250 mg Vitamin A (Vitamin A & D Oint Ud Foilpak) 1 ea TOP BID [facility] Last Admin: 12/18/16 17:52 Dose: Not Given - Labs Labs: 12/19/16 07:24 12/19/16 07:24 PT 13.5 SECONDS (9.7-12.2) H 12/07/16 06:44 INR 1.2 12/07/16 06:44 APTT 30 SECONDS (21-34) 12/07/16 06:44 - Additional Findings Additional findings: - Constitutional Appears: Non-toxic, No Acute Distress - Head Exam Head Exam: ATRAUMATIC, NORMAL INSPECTION, NORMOCEPHALIC - Eye Exam Eye Exam: EOMI, Normal appearance, PERRL Pupil Exam: NORMAL ACCOMODATION - ENT Exam ENT Exam: Mucous Membranes Moist - Neck Exam Neck Exam: Full ROM - Respiratory Exam Respiratory Exam: NORMAL BREATHING PATTERN - Cardiovascular Exam Cardiovascular Exam: Murmur - GI/Abdominal Exam GI & Abdominal Exam: Soft, Normal Bowel Sounds - Extremities Exam Extremities Exam: Normal Capillary Refill, Pedal Edema Additional comments: trace edema noted - Back Exam Back Exam: Full ROM - Neurological Exam Neurological Exam: Alert, Awake, Oriented x3 - Psychiatric Exam Psychiatric exam: Normal Affect, Normal Mood - Skin Skin Exam: Dry, Warm Assessment and Plan - Assessment and Plan (Free Text) Assessment: PVD complicated with bilateral Leg ulcers * 12/19: Patient responding well to treatment. Patient will stay in the hospital until 12/19 for IV antibiotics. * S/P bilateral LE Skin graft POD 8 * S/P bilateral leg debridement 11/15/16 * Wound cultures: Alisha Parapsilosis * ID (Mangia) * Ceftazidine/Avibactam 2.5g IV Q8 * Mycamine 100mg IV * Repeat labs 1-2 times weekly to monitor for side effects * Florastor 250 mg PO BID * percocet 1 tab q6prn severe pain * topical Vitamin A for wound * Surgery (Sharonda) * Q2 day dressing changes Anemia likely secondary to chronic disease * 12/19: Hgb stable. Continue current treatment. * Feosol 325mg PO daily Mild aortic stenosis, s/p bioprosthetic aortic valve replacement * Cardiology Consult, - Continue current management * ASA 81 mg PO daily * Plavix 75 mg PO daily * Lovenox 40 mg SC daily * Lopressor 50 mg PO BID HTN * 12/19: BP stable, continue to monitor * Lopressor 50 mg PO BID. Neuropathy * Neurontin 100mg PO BID Constipation * Colace 100 mg PO TID * Lactulose 20 g PO BID * Encourage water intake Prophylaxis * Pepcid 20mg PO BID * Florastor 250 mg PO BID * Lovenox 40 SC daily * Continue Physical Therapy * Encourage incentive spirometry Disposition * Patient will stay in the hospital until 12/20 for IV antibiotics. Patient unable to afford outpatient option. Discussed with attending physician. All medical management as per Dr. Verdin
[2016-12-19 10:28] VITALS: BP 166/94; PULSE 105
[2016-12-19] MEDS: Vitamins A & D Oint UD Foilpak TOP SCH (10:29)
[2016-12-19] MEDS: Saccharomyces Boulardi 250 mg Cap PO SCH (10:30)
[2016-12-19] MEDS: Enoxaparin 40 mg Syringe SC SCH (10:30)
[2016-12-19] MEDS: Micafungin 100 MG in Sodium Chloride 0.9% 100 ML IV SCH (10:31)
--- NOTE | 2016-12-20 00:44 | CARD ---
APPROVED REPORT EKG Measurement Heart [id number] OR 146P77 [id number] <Conclusion> Normal sinus rhythm Possible Left atrial enlargement Cannot rule out Anterior infarct, age undetermined T wave abnormality, consider lateral ischemia Abnormal ECG
--- NOTE | 2016-12-20 00:47 | CARD ---
APPROVED REPORT EKG Measurement Heart [id number] [place] 146P75 [id number] <Conclusion> Normal sinus rhythm Moderate voltage criteria for LVH, may be normal variant T wave abnormality, consider lateral ischemia Abnormal ECG
--- NOTE | 2016-12-20 00:47 | CARD ---
APPROVED REPORT EKG Measurement Heart [id number] [place] 146P78 [id number] <Conclusion> Normal sinus rhythm Moderate voltage criteria for LVH, may be normal variant Nonspecific T wave abnormality Prolonged QT Abnormal ECG
--- NOTE | 2016-12-27 11:29 | DS ---
The patient chief complaint infection in the foot. The patient is given IV antibiotics and has improved and discharged to follow up as an outpatient. Brandy Verdin MD
== END 2016-12-19 15:40 | disposition home or self-care (01) | DRG 574 ==
LOC: C.SDS 11:56 → C.6T 13:55
PROVIDERS: ADMIT Internal Medicine Pulmonary Disease; ATTEND Internal Medicine Pulmonary Disease
PROC: 0JBQ0ZZ Excision of Right Foot Subcutaneous Tissue and Fascia, Open Approach (ICD-10-PCS; 2016-11-15)
PROC: 0JBR0ZZ Excision of Left Foot Subcutaneous Tissue and Fascia, Open Approach (ICD-10-PCS; principal; 2016-11-15 12:00)
PROC: 02HV33Z Insertion of Infusion Device into Superior Vena Cava, Percutaneous Approach (ICD-10-PCS; 2016-11-21)
PROC: 0HRNX74 Replacement of Left Foot Skin with Autologous Tissue Substitute, Partial Thickness, External Approach (ICD-10-PCS; 2016-12-07)
PROC: 0HBHXZZ Excision of Right Upper Leg Skin, External Approach (ICD-10-PCS; 2016-12-07)
PROC: 0HRMX74 Replacement of Right Foot Skin with Autologous Tissue Substitute, Partial Thickness, External Approach (ICD-10-PCS; 2016-12-07)
PROC: 0JBR0ZZ Excision of Left Foot Subcutaneous Tissue and Fascia, Open Approach (ICD-10-PCS; 2016-12-07)
PROC: 0JBQ0ZZ Excision of Right Foot Subcutaneous Tissue and Fascia, Open Approach (ICD-10-PCS; 2016-12-07)
DX: L03.115 Cellulitis of right lower limb (principal); I70.262 Atherosclerosis of native arteries of extremities with gangrene, left leg; G62.9 Polyneuropathy, unspecified; E87.1 Hypo-osmolality and hyponatremia; I70.221 Atherosclerosis of native arteries of extremities with rest pain, right leg; L03.116 Cellulitis of left lower limb; J44.9 Chronic obstructive pulmonary disease, unspecified; E86.0 Dehydration; D63.8 Anemia in other chronic diseases classified elsewhere; K59.00 Constipation, unspecified; I25.2 Old myocardial infarction; Z87.891 Personal history of nicotine dependence; L97.519 Non-pressure chronic ulcer of other part of right foot with unspecified severity; L97.529 Non-pressure chronic ulcer of other part of left foot with unspecified severity; Z79.82 Long term (current) use of aspirin; Z95.3 Presence of xenogenic heart valve; I35.0 Nonrheumatic aortic (valve) stenosis; I25.10 Atherosclerotic heart disease of native coronary artery without angina pectoris; B96.5 Pseudomonas (aeruginosa) (mallei) (pseudomallei) as the cause of diseases classified elsewhere

== ENCOUNTER 2017-08-10 09:47 | Inpatient (IN) | payer MEDICARE ==
[2017-08-10 09:48] VITALS: BMI 27.1
--- NOTE | 2017-08-10 10:29 | RAD ---
PROCEDURE: CHEST RADIOGRAPH, 1 VIEW HISTORY: SOB COMPARISON: Comparison chest 12/04/2016 FINDINGS: Interval removal right-sided PICC line LUNGS: Clear. PLEURA: No pneumothorax or pleural fluid seen. CARDIOVASCULAR: Normal. OSSEOUS STRUCTURES: No significant abnormalities. VISUALIZED UPPER ABDOMEN: Normal. OTHER FINDINGS: None. IMPRESSION: No active disease.
--- NOTE | 2017-08-10 10:45 | C.PDOC ---
History Of Present Illness 82 y/o male with history of HTN and Anemia (with Blood transfusion) presents to ED with c/o of dizziness for 1 week. Patient states he saw PMD for same symptoms and had blood work done 2 weeks ago. When he followed up with his pmd 2 days ago and was advised to come to ED for further evaluation. (+) decrease appetite. (+)weight loss ( 30lbs in 2 years) Also notes chronic ulcer to lower legs with no improvement. Patient denies blood in stool, chest pain, sob, visual changes, headache or any other complaints at this time. Time Seen by Provider: 08/10/17 10:00 Chief Complaint (Nursing): Abnormal Labs History Per: Patient History/Exam Limitations: no limitations Onset/Duration Of Symptoms: Days Current Symptoms Are (Timing): Still Present Past Medical History Reviewed: Historical Data, Nursing Documentation, Vital Signs Vital Signs: Last Vital Signs Temp 98 F 08/10/17 11:56 Pulse 78 08/10/17 11:56 Resp 18 08/10/17 11:56 BP 126/75 08/10/17 11:56 Pulse Ox 98 08/10/17 12:38 - Medical History PMH: Anemia, Arthritis, Colonic Polyps, Fractures (ANKLE), Gall Bladder Disease (G[place]STONES ROBIN), HTN, Peripheral Edema Surgical History: Cholecystectomy, Endoscopy - [facility] Procedures CORONAR ARTERIOGR-2 CATH (06/26/14) CT SCAN OF ABD AORTA USING OTH CONTRAST (01/26/16) CT SCAN OF BI LOW EXTREM ART USING OTH CONTRAST (01/26/16) DILATION OF R FEM ART WITH 2 INTRALUM DEV, PERC APPROACH (10/03/16) DILATION OF R FEM ART WITH DRUG-ELUT INTRA, PERC APPROACH (07/10/16) ETHMOIDECTOMY (01/27/14) EXCISION OF L FOOT SUBCU/FASCIA, OPEN APPROACH (11/13/16) EXCISION OF R FOOT SUBCU/FASCIA, OPEN APPROACH (11/13/16) EXCISION OF RIGHT UPPER LEG SKIN, EXTERNAL APPROACH (11/13/16) EXTIRPATION OF MATTER FROM R FEM ART, PERC APPROACH (10/03/16) INSERTION OF INFUSION DEV INTO SUP VENA CAVA, PERC APPROACH (11/13/16) INTRANASAL ANTROTOMY (01/27/14) LEFT HEART CARDIAC CATH (06/26/14) LT HEART ANGIOCARDIOGRAM (06/26/14) REPLACE L FOOT SKIN W AUTOL SUB, PART THICK, QUALITY REVIEWER (11/13/16) REPLACE R FOOT SKIN W AUTOL SUB, PART THICK, QUALITY REVIEWER (11/13/16) SPHENOIDOTOMY (01/27/14) SUBMUC NASAL SEPT RESECT (01/27/14) TURBINECTOMY NEC (01/27/14) ULTRASONOGRAPHY OF SUPERIOR VENA CAVA, GUIDANCE (08/25/16) Family History: States: No Known Family Hx - Social History Hx Alcohol Use: No Hx Substance Use: No - Immunization History Hx Tetanus Toxoid Vaccination: No Hx Influenza Vaccination: No Hx Pneumococcal Vaccination: No Review Of Systems Except As Marked, All Systems Reviewed And Found Negative. Constitutional: Negative for: Fever, Chills Cardiovascular: Negative for: Chest Pain Respiratory: Negative for: Shortness of Breath Gastrointestinal: Negative for: Nausea, Vomiting Musculoskeletal: Positive for: Leg Pain (sweling and ulcer) Skin: Negative for: Rash Neurological: Positive for: Dizziness. Negative for: Numbness Physical Exam - Physical Exam Appears: No Acute Distress, Chronically Ill Skin: Warm, Dry, No Rash Head: Atraumatic, Normacephalic Eye(s): bilateral: Normal Inspection, EOMI Nose: Normal Oral Mucosa: Moist Neck: Normal ROM, Supple Chest: Symmetrical Cardiovascular: Rhythm Regular Respiratory: Normal Breath Sounds, No Accessory Muscle Use, No Rales, No Rhonchi , No Wheezing Gastrointestinal/Abdominal: Soft, No Tenderness, No Guarding, No Rebound Extremity: Tenderness, Pedal Edema (to bilateral lower legs), No Deformity, Other (Foul smell and discharge noted through dressing on lower legs) Extremity: Bilateral: Normal ROM Neurological/Psych: Oriented x3, Normal Speech, Normal Cognition, Normal Motor, Normal Sensation Gait: Steady ED Course And Treatment - Laboratory Results Result Diagrams: 08/10/17 10:43 08/10/17 11:42 ECG: Interpreted By Me, Viewed By Me ECG Rhythm: Sinus Rhythm Rate From EC O2 Sat by Pulse Oximetry: 98 (RA) Pulse Ox Interpretation: Normal - Radiology CXR: Interpreted by Me, Viewed By Me, Read By Radiologist CXR Interpretation: Yes: No Acute Disease Progress Note: Case discussed with Dr Verdin, agreed upon admission. Disposition - Disposition Disposition: HOSPITALIZED Disposition Time: 12:00 Condition: STABLE - Clinical Impression Clinical Impression: Anemia, PVD (peripheral vascular disease), Lower extremity ulceration - PA / RESOURCE MANAGEMENT SPECIALIST / Resident Statement MD/DO has reviewed & agrees with the documentation as recorded. - Scribe Statement The provider has reviewed the documentation as recorded by the Meli Valencia All medical record entries made by the Meli were at my direction and personally dictated by me. I have reviewed the chart and agree that the record accurately reflects my personal performance of the history, physical exam, medical decision making, and the department course for this patient. I have also personally directed, reviewed, and agree with the discharge instructions and disposition.
[2017-08-10 11:02] LABS: BASO # 0.1 K/uL (0.0-0.2); BASO % 0.8 % (0.0-2.0); EOS # 0.5 K/uL (0.0-0.7); EOS % 5.9 % (0.0-4.0); LYMPH # 1.5 K/uL (1.0-4.3); LYMPH % 19.1 % (20.0-40.0); MEAN CORPUSCULAR HGB CONC 31.7 g/dL (33.0-37.0); MEAN PLATELET VOLUME 9.6 fL (7.2-11.7); NEUT # 4.7 K/uL (1.8-7.0); NEUT % 61.2 % (50.0-75.0); RBC 4.02 Mil/uL (4.40-5.90); RED CELL DISTRIBUTION WIDTH 27.7 % (11.5-14.5); WHITE BLOOD COUNT 7.8 K/uL (4.8-10.8)
[2017-08-10 11:08] LABS: HEMOGLOBIN 8.8 g/dL (12.0-18.0); MEAN CELL VOLUME 69.2 fL (80.0-94.0)
[2017-08-10 11:10] LABS: INR 1.2
[2017-08-10 12:08] LABS: ALB/GLOB RATIO 0.8 (1.0-2.1); ALBUMIN 3.3 g/dL (3.5-5.0); AST/SGOT 31 U/L (17-59); BLOOD UREA NITROGEN 29 mg/dL (9-20); CALCIUM 8.6 mg/dl (8.6-10.4); GFR AFRICAN-AMERICAN 54; GFR NON-AFRICAN AMERICAN 45
[2017-08-10 12:12] LABS: ALT/SGPT < 6 U/L (21-72)
[2017-08-10 12:21] LABS: CK-MB 0.97 ng/mL (0.0-3.38)
--- NOTE | 2017-08-10 14:51 | CP.PCM.PN ---
Subjective - Date & Time of Evaluation Date of Evaluation: 08/10/17 Time of Evaluation: 12:15 - Subjective Subjective: Medicine Progress Note- Dr. eVrdin's service 82 year old male with past medical history significant for anemia, HTN, CAD with CABG, heart valve surgery and hypercholesterolemia presents after being sent in by PMD for symptomatic anemia. Patient states that he has been increasingly dizzy and fatigued over the course of the past couple of days. He states that he lives at home with his . He has a home visiting nurse that comes by a few days a week. He denies any chest pain, palpitations, nausea, vomiting, diarrhea, constipation at this time. 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 Allergies- NKDA Objective - Vital Signs/Intake and Output Vital Signs (last 24 hours): Temp Pulse Resp BP Pulse Ox 98 F 78 18 126/75 98 08/10/17 11:56 08/10/17 11:56 08/10/17 11:56 08/10/17 11:56 08/10/17 13:56 - Medications Medications: Current Medications Docusate Sodium (Colace) 100 mg PO TID [facility] Last Admin: 08/10/17 14:43 Dose: 100 mg Gabapentin (Neurontin) 100 mg PO BID [facility] Metoprolol Tartrate (Lopressor) 50 mg PO BID [facility] - Labs Labs: 08/10/17 10:43 08/10/17 11:42 PT 14.0 SECONDS (9.7-12.2) H 08/10/17 10:43 INR 1.2 08/10/17 10:43 APTT 30 SECONDS (21-34) 08/10/17 10:43 - Constitutional Appears: Non-toxic, No Acute Distress - Head Exam Head Exam: ATRAUMATIC, NORMAL INSPECTION - Eye Exam Eye Exam: EOMI, Normal appearance, PERRL Pupil Exam: NORMAL ACCOMODATION Additional comments: conjunctival pallor - ENT Exam ENT Exam: Mucous Membranes Moist - Neck Exam Neck Exam: Full ROM - Respiratory Exam Respiratory Exam: NORMAL BREATHING PATTERN. absent: Wheezes - Cardiovascular Exam Cardiovascular Exam: +S1, +S2, Murmur (systolic) - GI/Abdominal Exam GI & Abdominal Exam: Soft, Normal Bowel Sounds. absent: Tenderness - Rectal Exam Rectal Exam: NORMAL INSPECTION. absent: Bloody Stool, Hemorrhoids - Extremities Exam Extremities Exam: Full ROM, Pedal Edema (up to the knees bilaterally) Additional comments: wrapped in jaspal bandage bilaterally, dressings intact, cap refill 2-3 seconds - Back Exam Back Exam: Full ROM, NORMAL INSPECTION - Neurological Exam Neurological Exam: Alert, Awake, Oriented x3 - Psychiatric Exam Psychiatric exam: Normal Affect, Normal Mood - Skin Skin Exam: Dry, Warm Additional comments: mild clubbing of nailbed Assessment and Plan - Assessment and Plan (Free Text) Assessment: Anemia Assessment & Plan: Rectal exam- no obvious overt signs of hemorrhoids or blood upon visual inspection Stool OB negative Hgb 8.8. Patient usually has Hgb in 9/10 range. Type and cross. Recommendations for transfusion if Hgb drops below 8 Monitor. Monitor CBC, Coags Status: Chronic HTN Assessment & Plan: Metoprolol Tartrate 50 mg PO BID Status: Chronic CAD (coronary artery disease) Assessment & Plan: Patient on ASA and Plavix at home, continue meds. Benefits of anticoagulation for history of CAD outweigh risks of not being on therapy Monitor CBC closely Status: Chronic Hx of PVD with bilateral Leg ulcers Assessment & Plan: Wound care referral- F/U recommendations Status: Acute Prophylactic measure Assessment & Plan: Lovenox at this time SCDs contraindicated Hold off on GI prophylaxis at this time. Correlation with exacerbating anemia. Status: Acute All management as per Dr. Verdin.
[2017-08-10 16:01] VITALS: RESP 20
[2017-08-10] MEDS: Enoxaparin 30 mg Syringe SC SCH (17:57)
[2017-08-11 08:56] LABS: BASO % 0.5 % (0.0-2.0); EOS # 0.3 K/uL (0.0-0.7); EOS % 4.6 % (0.0-4.0); HEMOGLOBIN 9.4 g/dL (12.0-18.0); LYMPH # 1.3 K/uL (1.0-4.3); LYMPH % 17.7 % (20.0-40.0); MEAN CELL VOLUME 69.4 fL (80.0-94.0); MEAN CORPUSCULAR HEMOGLOBIN 21.9 pg (27.0-31.0); MEAN CORPUSCULAR HGB CONC 31.6 g/dL (33.0-37.0); MEAN PLATELET VOLUME 9.1 fL (7.2-11.7); MONO # 0.8 K/uL (0.0-0.8); MONO % 11.1 % (0.0-10.0); NEUT # 4.8 K/uL (1.8-7.0); NEUT % 66.1 % (50.0-75.0); RBC 4.28 Mil/uL (4.40-5.90); RED CELL DISTRIBUTION WIDTH 27.6 % (11.5-14.5); WHITE BLOOD COUNT 7.3 K/uL (4.8-10.8)
[2017-08-11 08:57] LABS: INR 1.2; PROTHROMBIN TIME 13.7 SECONDS (9.7-12.2)
[2017-08-11 09:26] LABS: ALB/GLOB RATIO 0.7 (1.0-2.1); ALBUMIN 3.3 g/dL (3.5-5.0); ALT/SGPT 10 U/L (21-72); AST/SGOT 29 U/L (17-59); BLOOD UREA NITROGEN 22 mg/dL (9-20); CALCIUM 8.8 mg/dl (8.6-10.4); GFR AFRICAN-AMERICAN > 60; GFR NON-AFRICAN AMERICAN 58
[2017-08-11] MEDS: Enoxaparin 30 mg Syringe SC SCH (10:50)
--- NOTE | 2017-08-11 20:30 | CARD ---
APPROVED REPORT EKG Measurement Heart [id number] 144P76 [id number] <Conclusion> Normal sinus rhythm Left atrial enlargement Left ventricular hypertrophy Abnormal ECG
[2017-08-12] MEDS: Enoxaparin 30 mg Syringe SC SCH (09:24)
--- NOTE | 2017-08-12 18:45 | CP.PCM.CON ---
History of Present Illness - History of Present Illness History of Present Illness: Vascular surgery consult for Dr. Velasquez Consulted for: lower extremity ulcers Patient is an 82M with PMH of chronic lower extremity BL ulcers d/t PVD and venous stasis ulcers for almost a year. Patient is admitted for dizziness and anemia and vascular surgery was consulted to evaluate is chronic lower extremity wounds. Patient states that he has home nursing visits with wound care once a week. Patient has also visited Dr. Srivastava for podiatry care. He states it has a foul smell by the time his next dressing change occurs and has pain when he walks but denies any fevers, chills, nausea, vomiting, numbness, paralysis, or any other symptoms. Patient states that he is unable to wear the compression stockings he is sent home with because they cut off his circulation and are uncomfortable. He also states that he is on his feet all the time and does not elevate them like he should. Pmh: anemia, HTN, CAD S/P CABG, heart valve surgery, HLD, GERD, GI bleed PHS: CABG, cholecystectomy, BL angiogram/angioplasty right leg with stents in 2017, heart valve replacement, stomach surgery, multiple lower leg wound debridements, skin grafts BL ankles 11/2016 ALL: NKDA Social: former smoker, quit many years ago Review of Systems - Review of Systems All systems: reviewed and no additional remarkable complaints except (as per HPI ) Past Patient History - Past Medical History & Family History Past Medical History?: Yes - Past Social History Smoking Status: Former Smoker - CARDIAC Hx Cardiac Disorders: Yes Hx Hypertension: Yes Hx Peripheral Edema: Yes Hx Peripheral Vascular Disease: Yes Other/Comment: CAD s/p CABG, valve replacement - PULMONARY Hx Respiratory Disorders: No - NEUROLOGICAL Hx Neurological Disorder: No - HEENT Hx HEENT Problems: No - ENDOCRINE/METABOLIC Hx Endocrine Disorders: No - HEMATOLOGICAL/ONCOLOGICAL Hx Anemia: Yes - INTEGUMENTARY Hx Dermatological Problems: Yes Other/Comment: Mark anterior lower leg-w/scattered open dry ulcers - MUSCULOSKELETAL/RHEUMATOLOGICAL Hx Arthritis: Yes Hx Fractures: Yes (ANKLE) - GASTROINTESTINAL Hx Gall Bladder Disease: Yes (GALLSTONES ROBIN) Hx Gastroesophageal Reflux: Yes Other/Comment: GI bleed - GENITOURINARY/GYNECOLOGICAL Hx Genitourinary Disorders: No - PSYCHIATRIC Hx Substance Use: No - SURGICAL HISTORY Hx Surgeries: Yes Hx Angiogram: Yes Hx Cholecystectomy: Yes Hx Coronary Artery Bypass Graft: Yes Hx Valve Replacement: Yes Other/Comment: BL ankle skin graft, multiple BL lower extremity wound debridements - ANESTHESIA Hx Anesthesia: Yes Hx Anesthesia Reactions: No Hx Malignant Hyperthermia: No Meds Allergies/Adverse Reactions: Allergies Allergy/AdvReac Type Severity Reaction Status Date / Time No Known Allergies Allergy Verified 08/10/17 09:54 - Medications Medications: Current Medications Aspirin (Aspirin Chewable) 81 mg PO DAILY [facility] Last Admin: 08/12/17 09:23 Dose: 81 mg Clopidogrel Bisulfate (Plavix) 75 mg PO DAILY [facility] Last Admin: 08/12/17 09:23 Dose: 75 mg Docusate Sodium (Colace) 100 mg PO TID [facility] Last Admin: 08/12/17 17:43 Dose: Not Given Enoxaparin Sodium (Lovenox) 30 mg SC DAILY [facility] Last Admin: 08/12/17 09:24 Dose: 30 mg Ferrous Sulfate (Feosol) 325 mg PO DAILY [facility] Last Admin: 08/12/17 09:23 Dose: 325 mg Furosemide (Lasix) 40 mg PO DAILY [facility] Last Admin: 08/12/17 09:23 Dose: 40 mg Gabapentin (Neurontin) 100 mg PO BID [facility] Last Admin: 08/12/17 17:43 Dose: 100 mg Metoprolol Tartrate (Lopressor) 50 mg PO BID [facility] Last Admin: 08/12/17 17:43 Dose: 50 mg Physical Exam - Constitutional Appears: Well, Non-toxic, No Acute Distress - Head Exam Head Exam: ATRAUMATIC, NORMOCEPHALIC - Eye Exam Eye Exam: Normal appearance. absent: Conjunctival injection, Scleral icterus - ENT Exam ENT Exam: Mucous Membranes Moist, Normal Oropharynx - Respiratory Exam Respiratory Exam: NORMAL BREATHING PATTERN. absent: Accessory Muscle Use, Respiratory Distress - Cardiovascular Exam Cardiovascular Exam: RRR - GI/Abdominal Exam GI & Abdominal Exam: Soft. absent: Distended, Tenderness - Extremities Exam Additional comments: BL lower legs covered in dressings C/D/I. Legs warm to the touch, BL popliteal arteries non-palpable - Neurological Exam Neurological exam: Alert, Oriented x3 - Psychiatric Exam Psychiatric exam: Normal Affect, Normal Mood - Skin Skin Exam: Dry, Normal Color, Warm Results - Vital Signs Recent Vital Signs: Last Vital Signs Temp 98.6 F 08/12/17 15:00 Pulse 73 04/29/18 15:00 Resp 20 08/12/17 15:00 BP 160/63 H 08/12/17 15:00 Pulse Ox 97 08/12/17 15:00 - Labs Result Diagrams: 08/11/17 08:36 08/11/17 08:36 Labs: Laboratory Results - last 24 hr 08/12/17 08/12/17 11:21 16:33 POC Glucose (mg/dL) 87 107 Assessment & Plan - Assessment and Plan (Free Text) Assessment: 82M with PMH of PVD, venous stasis, and chronic BL LE wounds Plan: Keep lower extremities elevated as much as possible Local wound care per wound care nursing further surgical plans per Dr. Velasqeuz's assessment of the wounds--patient has had multiple episodes of improvement of wounds in the hospital with proper elevation and compression stockings but then deteriorates when he returns home d /t non-compliance. Medical management of dizziness per primary Seen and discussed with Dr. Velasquez, who agrees with above Nneka Gould, PGY2
[2017-08-13 07:28] LABS: BASO % 0.6 % (0.0-2.0); EOS # 0.4 K/uL (0.0-0.7); EOS % 5.4 % (0.0-4.0); HEMOGLOBIN 9.4 g/dL (12.0-18.0); LYMPH # 1.2 K/uL (1.0-4.3); LYMPH % 17.1 % (20.0-40.0); MEAN CELL VOLUME 69.3 fL (80.0-94.0); MEAN CORPUSCULAR HEMOGLOBIN 22.2 pg (27.0-31.0); MEAN PLATELET VOLUME 9.3 fL (7.2-11.7); MONO # 0.9 K/uL (0.0-0.8); MONO % 12.2 % (0.0-10.0); NEUT # 4.6 K/uL (1.8-7.0); NEUT % 64.7 % (50.0-75.0); NRBC % 0.1 % (0.0-2.0); RBC 4.22 Mil/uL (4.40-5.90); WHITE BLOOD COUNT 7.2 K/uL (4.8-10.8)
[2017-08-13 07:34] LABS: ALB/GLOB RATIO 0.8 (1.0-2.1); ALBUMIN 3.4 g/dL (3.5-5.0); ALT/SGPT 8 U/L (21-72); AST/SGOT 29 U/L (17-59); BLOOD UREA NITROGEN 22 mg/dL (9-20); CALCIUM 9.1 mg/dl (8.6-10.4); GFR AFRICAN-AMERICAN > 60; GFR NON-AFRICAN AMERICAN 58
--- NOTE | 2017-08-13 08:50 | CP.PCM.PN ---
Subjective - Date & Time of Evaluation Date of Evaluation: 08/13/17 Time of Evaluation: 09:11 - Subjective Subjective: PGY 2 Medicine Progress Note- Dr. Verdin's service Patient seen and examined in no apparent acute distress. Patient denies dizziness, subjective fevers or chills, chest pain or dyspnea at this time. Patient states that his dressings need to be changed. Patient further states that he would like to go home after receiving therapy here. Patient states that he had bed bugs in his home 2 weeks ago and NOT in his actual patient room here. Objective - Vital Signs/Intake and Output Vital Signs (last 24 hours): Temp Pulse Resp BP Pulse Ox 98.6 F 82 20 125/65 96 08/13/17 07:47 08/13/17 07:47 08/13/17 07:47 08/13/17 07:47 08/13/17 07:47 Intake and Output: 08/13/17 08/13/17 06:59 18:59 Intake Total 200 Balance 200 - Medications Medications: Current Medications Aspirin (Aspirin Chewable) 81 mg PO DAILY [facility] Last Admin: 08/12/17 09:23 Dose: 81 mg Clopidogrel Bisulfate (Plavix) 75 mg PO DAILY [facility] Last Admin: 08/12/17 09:23 Dose: 75 mg Docusate Sodium (Colace) 100 mg PO TID [facility] Last Admin: 08/12/17 17:43 Dose: Not Given Enoxaparin Sodium (Lovenox) 30 mg SC DAILY [facility] Last Admin: 08/12/17 09:24 Dose: 30 mg Ferrous Sulfate (Feosol) 325 mg PO DAILY [facility] Last Admin: 08/12/17 09:23 Dose: 325 mg Furosemide (Lasix) 40 mg PO DAILY [facility] Last Admin: 08/12/17 09:23 Dose: 40 mg Gabapentin (Neurontin) 100 mg PO BID [facility] Last Admin: 08/12/17 17:43 Dose: 100 mg Metoprolol Tartrate (Lopressor) 50 mg PO BID [facility] Last Admin: 08/12/17 17:43 Dose: 50 mg - Labs Labs: 08/13/17 07:13 08/13/17 07:13 PT 13.7 SECONDS (9.7-12.2) H 08/11/17 08:36 INR 1.2 08/11/17 08:36 APTT 34 SECONDS (21-34) 08/11/17 08:36 - Constitutional Appears: Non-toxic, No Acute Distress - Head Exam Head Exam: ATRAUMATIC, NORMAL INSPECTION - Eye Exam Eye Exam: EOMI, Normal appearance, PERRL Pupil Exam: NORMAL ACCOMODATION - ENT Exam ENT Exam: Mucous Membranes Moist - Neck Exam Neck Exam: Full ROM - Respiratory Exam Respiratory Exam: Wheezes, NORMAL BREATHING PATTERN - Cardiovascular Exam Cardiovascular Exam: +S1, +S2, Murmur - GI/Abdominal Exam GI & Abdominal Exam: Soft, Normal Bowel Sounds - Extremities Exam Extremities Exam: Full ROM, Normal Capillary Refill, Pedal Edema, Tenderness Additional comments: wrapped in jaspal bandage bilaterally, drainage noted, cap refill 2-3 seconds, malodorous - Back Exam Back Exam: Full ROM - Neurological Exam Neurological Exam: Alert, Awake, Oriented x3 - Psychiatric Exam Psychiatric exam: Normal Affect, Normal Mood - Skin Skin Exam: Dry, Intact, Warm Assessment and Plan - Assessment and Plan (Free Text) Assessment: Anemia Assessment & Plan: Rectal exam- no obvious overt signs of hemorrhoids or blood upon visual inspection Stool OB negative Hgb increased and stable. Patient usually has Hgb in 9/10 range. Monitor. Monitor CBC, Coags Status: Chronic HTN Assessment & Plan: Metoprolol Tartrate 50 mg PO BID Status: Chronic CAD (coronary artery disease) Assessment & Plan: Patient on ASA and Plavix at home, continue meds. Benefits of anticoagulation for history of CAD outweigh risks of not being on therapy Monitor CBC closely Status: Chronic Hx of PVD with bilateral Leg ulcers Assessment & Plan: Elevate legs Patient would benefit from bed that allows for elevation of lower extremities Wound care referral- F/U recommendations Vasc Surg reccs- F/U Wound care; Unna boots to be placed by surgery Status: Acute Hyperkalemia Assessment & Plan: Calcium gluconate given F/U repeat K+ Monitor Status: Acute Prophylactic measure Assessment & Plan: Lovenox at this time SCDs contraindicated Hold off on GI prophylaxis at this time. Correlation with exacerbating anemia. Dispo: Await wound care evaluation and recommendations. Patient will continue with home care nursing services upon discharge. Status: Acute All management as per Dr. Verdin.
[2017-08-13] MEDS: Enoxaparin 30 mg Syringe SC SCH (10:21)
--- NOTE | 2017-08-13 10:21 | PN ---
DATE: 08/12/2017 SUBJECTIVE: The patient has continued weakness. Examination of the lower extremity reveals bilateral ____ wounds with redness, ____. At this point, we will get a Dr. Velasquez for followup surgical. Brandy Verdin MD
--- NOTE | 2017-08-13 11:16 | HP ---
HISTORY OF PRESENT ILLNESS: An 82-year-old male in the hospital complaining of weakness, fatigue, and tiredness. The patient has anemia and dizziness. The patient has chronic wound, peripheral vascular disease. PHYSICAL EXAMINATION: GENERAL: The patient is awake, alert and oriented. VITAL SIGNS: Temperature 98, pulse 90. HEENT: Within normal limits. NECK: Supple. CHEST: Symmetrical. HEART: Regular. ABDOMEN: Soft. EXTREMITIES: Bilateral wound, lower extremity with lot of The patient suffers from symptomatic anemia, chronic infection, peripheral vascular disease. The patient get bed rest, ID evaluation, surgical evaluation, anemia workup. Brandy Verdin MD
--- NOTE | 2017-08-13 17:43 | CP.PCM.PN ---
Subjective - Date & Time of Evaluation Date of Evaluation: 08/13/17 Time of Evaluation: 17:42 - Subjective Subjective: Vascular surgery progress note for Dr. Satya Jean, PGY-1 Pt S & E at bedside. Pt w/o complaints- states that his bed does not allow for elevation of lower extremities. Is not currently in pain. Objective - Vital Signs/Intake and Output Vital Signs (last 24 hours): Temp Pulse Resp BP Pulse Ox 97.9 F 81 20 153/73 H 97 08/13/17 15:15 08/13/17 15:15 08/13/17 15:15 08/13/17 15:15 08/13/17 15:15 Intake and Output: 08/13/17 08/13/17 06:59 18:59 Intake Total 800 Output Total 800 Balance 0 - Medications Medications: Current Medications Aspirin (Aspirin Chewable) 81 mg PO DAILY [facility] Last Admin: 08/13/17 10:21 Dose: 81 mg Clopidogrel Bisulfate (Plavix) 75 mg PO DAILY [facility] Last Admin: 08/13/17 10:21 Dose: 75 mg Docusate Sodium (Colace) 100 mg PO TID [facility] Last Admin: 08/13/17 17:33 Dose: 100 mg Enoxaparin Sodium (Lovenox) 30 mg SC DAILY [facility] Last Admin: 08/13/17 10:21 Dose: 30 mg Ferrous Sulfate (Feosol) 325 mg PO DAILY [facility] Last Admin: 08/13/17 10:21 Dose: 325 mg Furosemide (Lasix) 40 mg PO DAILY [facility] Last Admin: 08/13/17 10:21 Dose: 40 mg Gabapentin (Neurontin) 100 mg PO BID [facility] Last Admin: 08/13/17 17:33 Dose: 100 mg Metoprolol Tartrate (Lopressor) 50 mg PO BID [facility] Last Admin: 08/13/17 17:33 Dose: 50 mg - Labs Labs: 08/13/17 07:13 08/13/17 14:21 PT 13.7 SECONDS (9.7-12.2) H 08/11/17 08:36 INR 1.2 08/11/17 08:36 APTT 34 SECONDS (21-34) 08/11/17 08:36 - Constitutional Appears: Non-toxic, No Acute Distress - Head Exam Head Exam: ATRAUMATIC, NORMAL INSPECTION, NORMOCEPHALIC - Eye Exam Eye Exam: EOMI, Normal appearance - ENT Exam ENT Exam: Mucous Membranes Moist, Normal Exam - Neck Exam Neck Exam: Full ROM, Normal Inspection - Respiratory Exam Respiratory Exam: NORMAL BREATHING PATTERN - Cardiovascular Exam Cardiovascular Exam: REGULAR RHYTHM, +S1, +S2 - Extremities Exam Extremities Exam: absent: Normal Inspection Additional comments: medial aspect of bilateral legs with large superficial wounds with white edges - Neurological Exam Neurological Exam: Alert, Awake, CN II-XII Intact, Oriented x3 - Psychiatric Exam Psychiatric exam: Normal Affect, Normal Mood - Skin Skin Exam: Warm. absent: Dry, Intact, Normal Color Additional comments: see extremities exam for findings Assessment and Plan - Assessment and Plan (Free Text) Assessment: 82M w/PMH sig for PVD, venous stasis with chronic B/L LE unhealing wounds Plan: Elevate legs Get pt new bed that can elevate legs Local wound care with xeroform on wound bases Unna boots to be placed by surgery Further mgmt as per primary team AJAY attending Miranda, PGY-1
[2017-08-14] MEDS ORDERED: CHLORHEXIDINE GLUCONATE 4% TOP ONE (08:48)
--- NOTE | 2017-08-14 09:02 | CP.PCM.PN ---
Subjective - Date & Time of Evaluation Date of Evaluation: 08/14/17 Time of Evaluation: 08:59 - Subjective Subjective: Surgery: Dr. Mcdonough Patient reports some improvement of overall swelling in legs. He states he kept legs elevated through the night. He reports odor coming from wound. He is tolerating diet. Objective - Vital Signs/Intake and Output Vital Signs (last 24 hours): Temp Pulse Resp BP Pulse Ox 98.5 F 96 H 20 128/70 97 08/14/17 07:52 08/14/17 07:52 08/14/17 07:52 08/14/17 07:52 08/14/17 07:52 - Medications Medications: Current Medications Aspirin (Aspirin Chewable) 81 mg PO DAILY [facility] Last Admin: 08/13/17 10:21 Dose: 81 mg Clopidogrel Bisulfate (Plavix) 75 mg PO DAILY [facility] Last Admin: 08/13/17 10:21 Dose: 75 mg Docusate Sodium (Colace) 100 mg PO TID [facility] Last Admin: 08/13/17 17:33 Dose: 100 mg Enoxaparin Sodium (Lovenox) 30 mg SC DAILY [facility] Last Admin: 08/13/17 10:21 Dose: 30 mg Ferrous Sulfate (Feosol) 325 mg PO DAILY [facility] Last Admin: 08/13/17 10:21 Dose: 325 mg Furosemide (Lasix) 40 mg PO DAILY [facility] Last Admin: 08/13/17 10:21 Dose: 40 mg Gabapentin (Neurontin) 100 mg PO BID [facility] Last Admin: 08/13/17 17:33 Dose: 100 mg Metoprolol Tartrate (Lopressor) 50 mg PO BID [facility] Last Admin: 08/13/17 17:33 Dose: 50 mg - Labs Labs: 08/13/17 07:13 08/13/17 14:21 PT 13.7 SECONDS (9.7-12.2) H 08/11/17 08:36 INR 1.2 08/11/17 08:36 APTT 34 SECONDS (21-34) 08/11/17 08:36 - Constitutional Appears: Chronically Ill - Head Exam Head Exam: ATRAUMATIC, NORMOCEPHALIC - Eye Exam Eye Exam: EOMI - ENT Exam ENT Exam: Mucous Membranes Moist - Respiratory Exam Respiratory Exam: NORMAL BREATHING PATTERN. absent: Respiratory Distress - Cardiovascular Exam Cardiovascular Exam: REGULAR RHYTHM. absent: Tachycardia - Extremities Exam Additional comments: bilateral lower extremities with BRADLEY wrap CDI. Assessment and Plan - Assessment and Plan (Free Text) Assessment: 82 y/o male w/ B/L LE venous stasis ulcers Plan: -wash LE with hibaclens today -place xeroform on LE -await Unna boot for application -seen and examined with Dr. Ron Hendrix PGY3
[2017-08-14] MEDS: Enoxaparin 30 mg Syringe SC SCH (10:48)
[2017-08-15] MEDS: Enoxaparin 30 mg Syringe SC SCH (10:12)
[2017-08-15 11:30] LABS: BASO % 0.6 % (0.0-2.0); EOS # 0.4 K/uL (0.0-0.7); EOS % 6.7 % (0.0-4.0); HEMOGLOBIN 8.6 g/dL (12.0-18.0); LYMPH # 1.6 K/uL (1.0-4.3); LYMPH % 24.5 % (20.0-40.0); MEAN CELL VOLUME 70.3 fL (80.0-94.0); MEAN CORPUSCULAR HEMOGLOBIN 22.1 pg (27.0-31.0); MEAN CORPUSCULAR HGB CONC 31.4 g/dL (33.0-37.0); MEAN PLATELET VOLUME 9.3 fL (7.2-11.7); MONO # 1.2 K/uL (0.0-0.8); MONO % 18.8 % (0.0-10.0); NEUT # 3.2 K/uL (1.8-7.0); NEUT % 49.4 % (50.0-75.0); NRBC % 0.1 % (0.0-2.0); RBC 3.9 Mil/uL (4.40-5.90); RED CELL DISTRIBUTION WIDTH 28.2 % (11.5-14.5); WHITE BLOOD COUNT 6.4 K/uL (4.8-10.8)
[2017-08-15 11:52] LABS: BLOOD UREA NITROGEN 24 mg/dL (9-20); CALCIUM 8.8 mg/dl (8.6-10.4); GFR AFRICAN-AMERICAN > 60; GFR NON-AFRICAN AMERICAN > 60
--- NOTE | 2017-08-15 16:38 | CP.PCM.PN ---
Subjective - Date & Time of Evaluation Date of Evaluation: 08/15/17 Time of Evaluation: 16:36 - Subjective Subjective: General Surgery Progress Note For Dr. Velasquez This patient was seen and examined no acute events overnight. Denies SOB or chest pain. Ambulating using restroom. Objective - Vital Signs/Intake and Output Vital Signs (last 24 hours): Temp Pulse Resp BP Pulse Ox 98 F 73 20 137/60 97 08/15/17 15:00 08/15/17 15:00 08/15/17 15:00 08/15/17 15:00 08/15/17 15:00 Intake and Output: 08/15/17 08/15/17 06:59 18:59 Intake Total 360 490 Balance 360 490 - Medications Medications: Current Medications Aspirin (Aspirin Chewable) 81 mg PO DAILY [facility] Last Admin: 08/15/17 10:11 Dose: 81 mg Clopidogrel Bisulfate (Plavix) 75 mg PO DAILY [facility] Last Admin: 08/15/17 10:11 Dose: 75 mg Docusate Sodium (Colace) 100 mg PO TID [facility] Last Admin: 08/15/17 14:00 Dose: 100 mg Enoxaparin Sodium (Lovenox) 30 mg SC DAILY [facility] Last Admin: 08/15/17 10:12 Dose: 30 mg Ferrous Sulfate (Feosol) 325 mg PO DAILY [facility] Last Admin: 08/15/17 10:11 Dose: 325 mg Furosemide (Lasix) 40 mg PO DAILY [facility] Last Admin: 08/15/17 10:16 Dose: 40 mg Gabapentin (Neurontin) 100 mg PO BID [facility] Last Admin: 08/15/17 10:11 Dose: 100 mg Lactulose (Enulose) 20 gm PO PRN PRN Reason: Constipation Last Admin: 08/14/17 21:30 Dose: 20 gm Metoprolol Tartrate (Lopressor) 50 mg PO BID [facility] Last Admin: 08/15/17 10:11 Dose: 50 mg - Labs Labs: 08/15/17 11:24 08/15/17 11:24 PT 13.7 SECONDS (9.7-12.2) H 08/11/17 08:36 INR 1.2 08/11/17 08:36 APTT 34 SECONDS (21-34) 08/11/17 08:36 - Constitutional Appears: Non-toxic, No Acute Distress - Head Exam Head Exam: ATRAUMATIC, NORMOCEPHALIC - Eye Exam Eye Exam: EOMI, Normal appearance - ENT Exam ENT Exam: Mucous Membranes Moist - Respiratory Exam Respiratory Exam: NORMAL BREATHING PATTERN - Cardiovascular Exam Cardiovascular Exam: +S1, +S2 - GI/Abdominal Exam GI & Abdominal Exam: Soft. 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 Velasquez D/W Dr. Ron Christie PGY2
--- NOTE | 2017-08-16 07:45 | PN ---
DATE: 08/15/2017 The patient is admitted to the hospital with chief complaint neck pain, . being discharged, post . Patient had the unna boot put on today by Dr. Velasquez. supportive care. Brandy Verdin MD
--- NOTE | 2017-08-16 09:50 | CP.PCM.PN ---
Subjective - Date & Time of Evaluation Date of Evaluation: 08/16/17 Time of Evaluation: 07:00 - Subjective Subjective: PGY 2 medicine progress note for Dr. Verdin: Patient was seen and examined at bedside this morning. He was drsessed and ready to leave the hospital saying he wanted to go home today. Patient was cleared by surgery for discharge. Patient is encouraged to go to rehab but he is refusing. He has no complaints at this time. Objective - Vital Signs/Intake and Output Vital Signs (last 24 hours): Temp Pulse Resp BP Pulse Ox 98.4 F 89 20 127/85 98 08/16/17 08:14 08/16/17 08:14 08/16/17 08:14 08/16/17 08:14 08/16/17 08:14 Intake and Output: 08/16/17 08/16/17 06:59 18:59 Intake Total 300 Output Total 1100 Balance -800 - Medications Medications: Current Medications Aspirin (Aspirin Chewable) 81 mg PO DAILY [facility] Last Admin: 08/15/17 10:11 Dose: 81 mg Clopidogrel Bisulfate (Plavix) 75 mg PO DAILY [facility] Last Admin: 08/15/17 10:11 Dose: 75 mg Docusate Sodium (Colace) 100 mg PO TID [facility] Last Admin: 08/15/17 19:00 Dose: 100 mg Enoxaparin Sodium (Lovenox) 30 mg SC DAILY [facility] Last Admin: 08/15/17 10:12 Dose: 30 mg Ferrous Sulfate (Feosol) 325 mg PO DAILY [facility] Last Admin: 08/15/17 10:11 Dose: 325 mg Furosemide (Lasix) 40 mg PO DAILY [facility] Last Admin: 08/15/17 10:16 Dose: 40 mg Gabapentin (Neurontin) 100 mg PO BID [facility] Last Admin: 08/15/17 19:00 Dose: 100 mg Lactulose (Enulose) 20 gm PO HS PRN PRN Reason: Constipation Last Admin: 08/14/17 21:30 Dose: 20 gm Metoprolol Tartrate (Lopressor) 50 mg PO BID [facility] Last Admin: 08/15/17 19:00 Dose: 50 mg - Labs Labs: 08/15/17 11:24 08/15/17 11:24 PT 13.7 SECONDS (9.7-12.2) H 08/11/17 08:36 INR 1.2 08/11/17 08:36 APTT 34 SECONDS (21-34) 08/11/17 08:36 - Constitutional Appears: Non-toxic, No Acute Distress - Head Exam Head Exam: ATRAUMATIC, NORMAL INSPECTION - Eye Exam Eye Exam: EOMI - ENT Exam ENT Exam: Mucous Membranes Moist - Respiratory Exam Respiratory Exam: Clear to Ausculation Bilateral, NORMAL BREATHING PATTERN. absent: Respiratory Distress - Cardiovascular Exam Cardiovascular Exam: REGULAR RHYTHM, +S1, +S2 - GI/Abdominal Exam GI & Abdominal Exam: Soft, Normal Bowel Sounds. absent: Distended, Firm, Guarding, Tenderness - Extremities Exam Additional comments: b/l ext ulcers, boot in place, dressing c/d/i - Back Exam Back Exam: NORMAL INSPECTION. absent: CVA tenderness (L), paraspinal tenderness - Neurological Exam Neurological Exam: Alert, Awake, Oriented x3 Additional comments: ambulating with cane - Psychiatric Exam Psychiatric exam: Normal Affect - Skin Skin Exam: Dry, Normal Color Assessment and Plan - Assessment and Plan (Free Text) Assessment: Hx of PVD with bilateral Leg ulcers Assessment & Plan: Elevate legs Patient would benefit from bed that allows for elevation of lower extremities Wound care referral- F/U recommendations Vasc Surg reccs- F/U Wound care; Unna boots placed by surgery Patient is clear per surgery for discharge. He must follow up weekly outpatient. Status: Acute Anemia Assessment & Plan: Chronic Ferrous Sulfate 325mg PO daily Monitor. Monitor CBC, Coags Status: Chronic HTN Assessment & Plan: Controlled Metoprolol Tartrate 50 mg PO BID Lasix 40mg PO daily Status: Chronic CAD (coronary artery disease) Assessment & Plan: Patient on ASA and Plavix at home, continue meds. Benefits of anticoagulation for history of CAD outweigh risks of not being on therapy Monitor CBC closely Status: Chronic Prophylactic measure Assessment & Plan: Lovenox at this time SCDs contraindicated Hold off on GI prophylaxis at this time. Correlation with exacerbating anemia. Colace 100mg TID All management per Dr. Verdin. Patient is stable for discharge per surgery. Patient is to follow up with Dr. Verdin within one week of discharge. He is also to call and make an appointment to follow up with Dr. Servin outpatient within one week of discharge. Patient is to resume all of his home medications. Refills were sent electronically to his preferred pharmacy ([facility] All instructions explained to the patient and he agrees. Patient is to return to the emergency room if symptoms return. Patient is refusing rehab so he will be sent home with scripts for home care services/physical therapy.
[2017-08-16] MEDS: Enoxaparin 30 mg Syringe SC SCH (09:56)
[2017-08-16 17:06] VITALS: BP 114/61; PULSE 67; TEMP 98.2; O2SAT 97
== END 2017-08-16 22:05 | disposition home health service (06) | DRG 812 ==
LOC: C.ER 09:47 → C.3T 11:37 → OBSVTOIN 08-12 17:21
PROVIDERS: ADMIT Internal Medicine Pulmonary Disease; ATTEND Internal Medicine Pulmonary Disease
DX: D64.9 Anemia, unspecified (principal); L97.929 Non-pressure chronic ulcer of unspecified part of left lower leg with unspecified severity; L97.919 Non-pressure chronic ulcer of unspecified part of right lower leg with unspecified severity; I87.2 Venous insufficiency (chronic) (peripheral); I73.9 Peripheral vascular disease, unspecified; E87.5 Hyperkalemia; I10 Essential (primary) hypertension; I25.10 Atherosclerotic heart disease of native coronary artery without angina pectoris; K21.9 Gastro-esophageal reflux disease without esophagitis; E78.5 Hyperlipidemia, unspecified; E78.00 Pure hypercholesterolemia, unspecified; Z95.1 Presence of aortocoronary bypass graft; Z95.2 Presence of prosthetic heart valve; Z90.49 Acquired absence of other specified parts of digestive tract; Z86.010 Personal history of colon polyps; Z87.891 Personal history of nicotine dependence; Z95.820 Peripheral vascular angioplasty status with implants and grafts

== ENCOUNTER 2017-09-13 14:01 | Inpatient (IN) | payer MEDICARE ==
[2017-09-13 14:02] VITALS: BMI 27.1
[2017-09-13] MEDS ORDERED: Piperacillin/Tazobact 3.375 gm 100 ML IV STA (14:32)
[2017-09-13] MEDS ORDERED: Vancomycin 1 GM 1 GM/250 ML BAG IV SCH (14:45)
--- NOTE | 2017-09-13 14:59 | C.PDOC ---
History Of Present Illness 82 y/o male sent to ED by PMD for chronic low extremity venous ulcers and worsening foul smell of ulcers. Patient is well known to vascular surgery and currently denies fever, chills, rash, nausea,chest pain, numbness or any other complaints at this time. Time Seen by Provider: 09/13/17 14:12 Chief Complaint (Nursing): Lower Extremity Problem/Injury History Per: Patient History/Exam Limitations: no limitations Onset/Duration Of Symptoms: Days Current Symptoms Are (Timing): Still Present Past Medical History Reviewed: Historical Data, Nursing Documentation, Vital Signs Vital Signs: Last Vital Signs Temp 98.4 F 09/13/17 16:44 Pulse 85 09/13/17 16:44 Resp 18 09/13/17 16:44 BP 138/73 09/13/17 16:44 Pulse Ox 97 09/13/17 16:44 - Medical History PMH: Anemia, Arthritis, Colonic Polyps, Fractures (ANKLE), Gall Bladder Disease (GALLSTONES ROBIN), HTN, Peripheral Edema Surgical History: CABG, Cholecystectomy, Endoscopy - [facility] Procedures CORONAR ARTERIOGR-2 CATH (06/26/14) CT SCAN OF ABD AORTA USING OTH CONTRAST (01/26/16) CT SCAN OF BI LOW EXTREM ART USING OTH CONTRAST (01/26/16) DILATION OF R FEM ART WITH 2 INTRALUM DEV, PERC APPROACH (10/03/16) DILATION OF R FEM ART WITH DRUG-ELUT INTRA, PERC APPROACH (07/10/16) ETHMOIDECTOMY (01/27/14) EXCISION OF L FOOT SUBCU/FASCIA, OPEN APPROACH (11/13/16) EXCISION OF R FOOT SUBCU/FASCIA, OPEN APPROACH (11/13/16) EXCISION OF RIGHT UPPER LEG SKIN, EXTERNAL APPROACH (11/13/16) EXTIRPATION OF MATTER FROM R FEM ART, PERC APPROACH (10/03/16) INSERTION OF INFUSION DEV INTO SUP VENA CAVA, PERC APPROACH (11/13/16) INTRANASAL ANTROTOMY (01/27/14) LEFT HEART CARDIAC CATH (06/26/14) LT HEART ANGIOCARDIOGRAM (06/26/14) REPLACE L FOOT SKIN W AUTOL SUB, PART THICK, HEEL SPLITTER (11/13/16) REPLACE R FOOT SKIN W AUTOL SUB, PART THICK, HEEL SPLITTER (11/13/16) SPHENOIDOTOMY (01/27/14) SUBMUC NASAL SEPT RESECT (01/27/14) TURBINECTOMY NEC (01/27/14) ULTRASONOGRAPHY OF SUPERIOR VENA CAVA, GUIDANCE (08/25/16) Family History: States: No Known Family Hx - Social History Hx Alcohol Use: No Hx Substance Use: No - Immunization History Hx Tetanus Toxoid Vaccination: No Hx Influenza Vaccination: No Hx Pneumococcal Vaccination: No Review Of Systems Constitutional: Negative for: Fever, Chills Cardiovascular: Negative for: Chest Pain Respiratory: Negative for: Shortness of Breath Gastrointestinal: Negative for: Nausea, Vomiting Musculoskeletal: Positive for: Foot Pain Skin: Negative for: Rash Physical Exam - Physical Exam Appears: Non-toxic, No Acute Distress Skin: Warm, Dry, No Rash Head: Atraumatic, Normacephalic Oral Mucosa: Moist Neck: Normal ROM, Supple Cardiovascular: Rhythm Regular Respiratory: Normal Breath Sounds, No Rales, No Rhonchi, No Wheezing Gastrointestinal/Abdominal: Soft, No Tenderness, No Guarding, No Rebound Extremity: Capillary Refill (<2 seconds), No Deformity, Other (20x20 ulcer to medial aspect of both ankles. Macerated edges and foul smell noted. No discharge ) Pulses: Left Dorsalis Pedis: Decreased, Right Dorsalis Pedis: Decreased Neurological/Psych: Oriented x3, Normal Speech, Normal Motor, Normal Sensation ED Course And Treatment - Laboratory Results Result Diagrams: 09/13/17 14:52 09/13/17 14:52 Lab Interpretation: Abnormal (creat elevated from 1.1 earlier August 2017) ECG: Interpreted By Ct ECG Rhythm: Sinus Rhythm ECG Interpretation: Normal Rate From EC (BPM) O2 Sat by Pulse Oximetry: 98 (RA) Pulse Ox Interpretation: Normal - Radiology CXR: Interpreted by Ct CXR Interpretation: Yes: No Acute Disease Progress Note: vanco/zosyn Reevaluation Time: 15:55 Reassessment Condition: Improved - Physician Consult Information Outcome Of Conversation: 1500; d/w Dr. Brambila- matt to admit. Medical Decision Making Medical Decision Making: chronic venous lower leg ulcers foul smell h/o Micro + pseudomonas Vanco/Zosyn empirically Consult Vascular in AM Acute Renal Insuff baseline Creat 1.1, now 1.6 ? pre-renal Start hydration, repeat CMP in AM Consider renal consult Dose meds accordingly 2:45pm- spoke to Dr. Brambila for admission 3:00pm - Pt evaluated bedside by sales vice president Disposition Doctor Will See Patient In The: Hospital Counseled Patient/Family Regarding: Studies Performed, Diagnosis - Disposition Disposition: HOSPITALIZED Disposition Time: 15:00 Condition: GOOD - Clinical Impression Clinical Impression: Ischemic ulcer of ankle, Acute renal insufficiency - Anthonyibe Statement The provider has reviewed the documentation as recorded by the Meli Valencia All medical record entries made by the Meli were at my direction and personally dictated by me. I have reviewed the chart and agree that the record accurately reflects my personal performance of the history, physical exam, medical decision making, and the department course for this patient. I have also personally directed, reviewed, and agree with the discharge instructions and disposition.
[2017-09-13 15:05] LABS: BASO % 0.4 % (0.0-2.0); EOS # 0.3 K/uL (0.0-0.7); LYMPH # 1.4 K/uL (1.0-4.3); LYMPH % 12.9 % (20.0-40.0); MEAN CORPUSCULAR HEMOGLOBIN 23.8 pg (27.0-31.0); MEAN CORPUSCULAR HGB CONC 31.9 g/dL (33.0-37.0); MEAN PLATELET VOLUME 9.1 fL (7.2-11.7); MONO # 1.2 K/uL (0.0-0.8); MONO % 11.8 % (0.0-10.0); NEUT # 7.6 K/uL (1.8-7.0); NEUT % 71.9 % (50.0-75.0); NRBC % 0.1 % (0.0-2.0); RBC 4.2 Mil/uL (4.40-5.90); RED CELL DISTRIBUTION WIDTH 25.1 % (11.5-14.5)
[2017-09-13 15:07] LABS: WHITE BLOOD COUNT 10.5 K/uL (4.8-10.8)
[2017-09-13 15:08] LABS: INR 1.3; MEAN CELL VOLUME 74.5 fL (80.0-94.0); PROTHROMBIN TIME 13.9 SECONDS (9.7-12.2)
[2017-09-13] MEDS ORDERED: Piperacillin/Tazobact 3.375 gm 100 ML IVPB ONE (15:21)
[2017-09-13 15:31] LABS: B-TYPE NATRIURETIC PEPTIDE 737 pg/mL (0-900)
--- NOTE | 2017-09-13 15:32 | RAD ---
PROCEDURE: CHEST RADIOGRAPH, 1 VIEW HISTORY: SOB COMPARISON: 08/10/2017. FINDINGS: LUNGS: The lungs are well inflated. There is left basilar atelectasis. No focal consolidation. PLEURA: No pneumothorax or pleural fluid seen. CARDIOVASCULAR: The heart is normal in size. Status post median sternotomy. OSSEOUS STRUCTURES: No significant abnormalities. VISUALIZED UPPER ABDOMEN: Normal. OTHER FINDINGS: None. IMPRESSION: No active pulmonary disease.
[2017-09-13 15:36] LABS: ALB/GLOB RATIO 0.8 (1.0-2.1); ALBUMIN 3.4 g/dL (3.5-5.0); ALT/SGPT < 6 U/L (21-72); AST/SGOT 42 U/L (17-59); BLOOD UREA NITROGEN 34 mg/dL (9-20); CALCIUM 8.6 mg/dl (8.6-10.4); GFR AFRICAN-AMERICAN 50; GFR NON-AFRICAN AMERICAN 41
[2017-09-13] MEDS: Sodium Chloride 0.9% 1,000 ML IV SCH (16:38)
--- NOTE | 2017-09-13 17:37 | CP.PCM.PN ---
Subjective - Date & Time of Evaluation Date of Evaluation: 09/13/17 Time of Evaluation: 17:10 - Subjective Subjective: Progress Note for Dr. 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 Patient was to have follow up appointment with Dr. Velasquez tomorrow. Patient states these ulcers come and go for about 1 year now. He reports to have malodorous discharge daily. Patient states the pain become worse today which prompted him to come to the hospital today. Patient denies fever, chills, headache, shortness of breath, chest pain, nausea, vomiting, or diarrhea. PMH: HTN, DC, PVD, PSH: aortic valve replacement, cholecystectomy cardiac cath, angiogram x 2 All: Denies Meds: Lopressore, Lasix, ASA, Plavix, SH: Former remote tobacco use (2ppd x 25yrs, quit 25 yrs ago), former ETOH use ( quit 25 yrs ago), denies illicit drug use or history of PMD: [place] Objective - Vital Signs/Intake and Output Vital Signs (last 24 hours): Temp Pulse Resp BP Pulse Ox 98.4 F 85 18 138/73 98 09/13/17 16:44 09/13/17 16:44 09/13/17 16:44 09/13/17 16:44 09/13/17 16:58 - Medications Medications: Current Medications Vancomycin HCl (Vancomycin 1gm In Normal Saline Addvantage) 1 gm in 250 mls @ 166.667 mls/hr IV STAT [facility] PRN Reason: Protocol Sodium Chloride (Sodium Chloride 0.9%) 1,000 mls @ 100 mls/hr IV .Q10H [facility] Last Admin: 09/13/17 16:38 Dose: 100 mls/hr - Labs Labs: 09/13/17 14:52 09/13/17 14:52 PT 13.9 SECONDS (9.7-12.2) H 09/13/17 14:52 INR 1.3 09/13/17 14:52 APTT 39 SECONDS (21-34) H 09/13/17 14:52 - Additional Findings Additional findings: - Constitutional Appears: No Acute Distress - Head Exam Head Exam: ATRAUMATIC, NORMOCEPHALIC - Eye Exam Eye Exam: EOMI - ENT Exam ENT Exam: Mucous Membranes Moist - Respiratory Exam Respiratory Exam: Clear to Auscultation, NORMAL BREATHING PATTERN, No wheezes, No Crackles - Cardiovascular Exam Cardiovascular Exam: +S1, +S2 - GI/Abdominal Exam GI & Abdominal Exam: Soft, Normal Bowel Sounds. absent: Tenderness - Extremities Exam Extremities Exam: Pedal Edema Additional comments: bilateral lower extremities erythematous, pitting edema, warm to touch, medial malleolus ulcers b/l with necrotic base malodorous clear discharge soaked the bed sheet - Neurological Exam Neurological Exam: Alert, Awake - Psychiatric Exam Psychiatric exam: Normal Affect - Skin Skin Exam: Warm Assessment and Plan - Assessment and Plan (Free Text) Assessment: Lower extremity wounds Afebrile, no leukocytosis Wound care consulted Zosyn 2.25gm IVPB Q6H (start 09/13) Vancomycin 1g IVPB Q12H (start 09/13) Follow up wound culture Follow up venous doppler Percocet prn for pain PVD Vascular Surgery Dr. Velasquez consulted Follow recommendations History of Aortic Valve Replacement Continue Plavix and ASA CAD (coronary artery disease) Patient on ASA and Plavix at home, continue meds. HTN (hypertension) BP controlled Continue Lopressor 25 mg PO BID Hx of Anemia Hgb 10.0, stable Prophylactic measure Protnoix lovenox 40u sc daily PT eval All medical managment as per Dr. Verdin
[2017-09-13] MEDS: Vancomycin 1 gm/NS 200 ml 1 GM/200 ML BAG IVPB SCH (18:45)
[2017-09-13] MEDS: Enoxaparin 40 mg Syringe SC SCH (18:45)
[2017-09-13] MEDS: Oxycodone/Acetaminophen 5/325 mg Tab PO PRN (19:03)
--- NOTE | 2017-09-13 21:15 | CP.PCM.CON ---
History of Present Illness - History of Present Illness History of Present Illness: Surgery- Dr. Velasquez Reason for consult: bilateral lower extremity ulcers 82M w/ pmhx significant for bilateral lower extremity ulcers 2/2 venous stasis, pvd for 1.5 years, presents to [facility] ER w/ complaints of serous discharge and foul smelling dressings. Patient had NIKKO boots placed early August 2017. Patient removed the boots last week and provided self dressings. Patient states there is no increase in the amount of discharge, and no change in the size or swelling of the legs. Patient ambulates with a cane. Denies Current: fevers, chills, chest pain, shortness of breath, nausea, vomiting, diarrhea, changes in urinary or bowel habits PMH: anemia, CAD s/p CABG, HLD, GERD, GID bleed, HTN PSH: CABG, db, b/l angio w/ stents (2016), cardiac valve replacement, multiple debridements of b/lw LE, B/L skin graft (11/2016) ALL: NKDA SocialHx: former smoker, denies ETOH, recreational drug use FH: non-contributory Review of Systems - Review of Systems All systems: reviewed and no additional remarkable complaints except - Constitutional Constitutional: As Per HPI Past Patient History - Past Medical History & Family History Past Medical History?: Yes - Past Social History Smoking Status: Current Some Days Smoker - CARDIAC Hx Hypertension: Yes Hx Peripheral Edema: Yes - PULMONARY Hx Respiratory Disorders: No - NEUROLOGICAL Hx Neurological Disorder: No - HEENT Hx HEENT Problems: No - ENDOCRINE/METABOLIC Hx Endocrine Disorders: No - HEMATOLOGICAL/ONCOLOGICAL Hx Anemia: Yes - INTEGUMENTARY Hx Dermatological Problems: Yes Other/Comment: Mark anterior lower leg-w/scattered open dry ulcers - MUSCULOSKELETAL/RHEUMATOLOGICAL Hx Arthritis: Yes Hx Fractures: Yes (ANKLE) - GASTROINTESTINAL Hx Gall Bladder Disease: Yes (GALLSTONES DB) - GENITOURINARY/GYNECOLOGICAL Hx Genitourinary Disorders: No - PSYCHIATRIC Hx Substance Use: No - SURGICAL HISTORY Hx Cholecystectomy: Yes Hx Coronary Artery Bypass Graft: Yes - ANESTHESIA Hx Anesthesia: Yes Hx Anesthesia Reactions: No Hx Malignant Hyperthermia: No Meds Allergies/Adverse Reactions: Allergies Allergy/AdvReac Type Severity Reaction Status Date / Time No Known Allergies Allergy Verified 08/10/17 09:54 - Medications Medications: Current Medications Aspirin (Aspirin Chewable) 81 mg PO DAILY [facility] Clopidogrel Bisulfate (Plavix) 75 mg PO DAILY [facility] Enoxaparin Sodium (Lovenox) 40 mg SC DAILY [facility] Last Admin: 09/13/17 18:45 Dose: 40 mg Famotidine (Pepcid) 20 mg PO DAILY [facility] Furosemide (Lasix) 40 mg PO DAILY [facility] Sodium Chloride (Sodium Chloride 0.9%) 1,000 mls @ 100 mls/hr IV .Q10H [facility] Last Admin: 09/13/17 16:38 Dose: 100 mls/hr Vancomycin/Sodium Chloride (Vancomycin 1 Gm/Ns 200 Ml) 1 gm in 200 mls @ 133 mls/hr IVPB Q12H [facility] PRN Reason: Protocol Stop: 09/18/17 18:01 Last Admin: 09/13/17 18:45 Dose: 133 mls/hr Piperacillin Sod/Tazobactam Sod (Zosyn 3.375 Gm Iv Premix) 3.375 gm in 50 mls @ 100 mls/hr IVPB Q6H [facility] PRN Reason: Protocol Metoprolol Tartrate (Lopressor) 50 mg PO BID [facility] Last Admin: 09/13/17 18:45 Dose: 50 mg Oxycodone/Acetaminophen (Percocet 5/325 Mg Tab) 1 tab PO Q4H PRN PRN Reason: pain Stop: 09/16/17 17:42 Last Admin: 09/13/17 19:03 Dose: 1 tab Physical Exam - Constitutional Appears: Non-toxic, No Acute Distress - Head Exam Head Exam: ATRAUMATIC - Eye Exam Eye Exam: EOMI. absent: Scleral icterus - ENT Exam ENT Exam: Mucous Membranes Moist - Respiratory Exam Respiratory Exam: NORMAL BREATHING PATTERN. absent: Accessory Muscle Use, Respiratory Distress - Cardiovascular Exam Cardiovascular Exam: +S1, +S2. absent: Bradycardia, Tachycardia - GI/Abdominal Exam GI & Abdominal Exam: Soft. absent: Firm, Guarding, Hernia, Rigid, Tenderness - Extremities Exam Additional comments: bilateral lower exetremity wounds. No signs of necrosis serous drainage b/l LE swelling & Edema - Neurological Exam Neurological exam: Alert, Oriented x3 - Psychiatric Exam Psychiatric exam: Normal Affect - Skin Skin Exam: Warm Results - Vital Signs Recent Vital Signs: Last Vital Signs Temp 98.4 F 09/13/17 16:44 Pulse 85 09/13/17 16:44 Resp 18 09/13/17 16:44 BP 138/73 09/13/17 16:44 Pulse Ox 98 09/13/17 16:58 - Labs Result Diagrams: 09/13/17 14:52 09/13/17 14:52 Labs: Laboratory Results - last 24 hr 09/13/17 09/13/17 09/13/17 14:12 14:52 14:52 WBC 10.5 D RBC 4.20 L Hgb 10.0 L Hct 31.3 L MCV 74.5 L D MCH 23.8 L MCHC 31.9 L RDW 25.1 H Plt Count 170 MPV 9.1 Neut % (Auto) 71.9 Lymph % (Auto) 12.9 L [place] % (Auto) 11.8 H Eos % (Auto) 3.0 Baso % (Auto) 0.4 Neut # (Auto) 7.6 H Lymph # (Auto) 1.4 [place] # (Auto) 1.2 H Eos # (Auto) 0.3 Baso # (Auto) 0.0 PT INR APTT Sodium 137 Potassium 5.2 Chloride 106 Carbon Dioxide 21 L Anion Gap 15 BUN 34 H Creatinine 1.6 H Est GFR ( Amer) 50 Est GFR (Non-Af Amer) 41 POC Glucose (mg/dL) 93 Random Glucose 80 Calcium 8.6 Total Bilirubin 0.8 AST 42 ALT < 6 L D Alkaline Phosphatase 87 Troponin I < 0.0120 NT-Pro-B Natriuret Pep 737 Total Protein 7.9 Albumin 3.4 L Globulin 4.5 H Albumin/Globulin Ratio 0.8 L 09/13/17 14:52 WBC RBC Hgb Hct MCV MCH MCHC RDW Plt Count MPV Neut % (Auto) Lymph % (Auto) [place] % (Auto) Eos % (Auto) Baso % (Auto) Neut # (Auto) Lymph # (Auto) [place] # (Auto) Eos # (Auto) Baso # (Auto) PT 13.9 H INR 1.3 APTT 39 H Sodium Potassium Chloride Carbon Dioxide Anion Gap BUN Creatinine Est GFR ( Amer) Est GFR (Non-Af Amer) POC Glucose (mg/dL) Random Glucose Calcium Total Bilirubin AST ALT Alkaline Phosphatase Troponin I NT-Pro-B Natriuret Pep Total Protein Albumin Globulin Albumin/Globulin Ratio Assessment & Plan - Assessment and Plan (Free Text) Assessment: 82M w/ PVD, venous stasis, chronic b/l LE wounds Plan: dressing changed at bedside during encounter elevate lower extremities recommend compression stockings and local wound care * as discussed before with patient, multiple episodes of improvement of ounds in hosptial hwoever w/ discharged home pt is non-compliant and wounds worsen continue medical management no surgical intervention indicated at this time local wound care will discuss w/ surgical attending PGY1
[2017-09-13] MEDS: Piperacill/Tazo 3.375gm in Dex 3.375 GM/50 ML BAG IVPB SCH (21:22)
[2017-09-13] MEDS ORDERED: Piperacill/Tazo 2.25gm in Dex 2.25 GM/50 ML BAG IVPB SCH (21:30)
[2017-09-14 00:55] VITALS: RESP 20
[2017-09-14] MEDS: Sodium Chloride 0.9% 1,000 ML IV SCH ×2 (02:00→12:19)
[2017-09-14] MEDS: Piperacill/Tazo 3.375gm in Dex 3.375 GM/50 ML BAG IVPB SCH ×4 (03:03→20:30)
[2017-09-14] MEDS: Vancomycin 1 gm/NS 200 ml 1 GM/200 ML BAG IVPB SCH ×2 (05:55→17:12)
[2017-09-14 06:55] LABS: BASO % 0.4 % (0.0-2.0); EOS # 0.2 K/uL (0.0-0.7); EOS % 2.3 % (0.0-4.0); HEMOGLOBIN 9.5 g/dL (12.0-18.0); LYMPH # 1.7 K/uL (1.0-4.3); LYMPH % 17.8 % (20.0-40.0); MEAN CELL VOLUME 73.8 fL (80.0-94.0); MEAN CORPUSCULAR HGB CONC 32.6 g/dL (33.0-37.0); MEAN PLATELET VOLUME 9.4 fL (7.2-11.7); MONO # 1.2 K/uL (0.0-0.8); MONO % 12.7 % (0.0-10.0); NEUT # 6.4 K/uL (1.8-7.0); NEUT % 66.8 % (50.0-75.0); RBC 3.96 Mil/uL (4.40-5.90); RED CELL DISTRIBUTION WIDTH 24.8 % (11.5-14.5); WHITE BLOOD COUNT 9.7 K/uL (4.8-10.8)
[2017-09-14 08:38] LABS: ALB/GLOB RATIO 0.7 (1.0-2.1); ALBUMIN 2.7 g/dL (3.5-5.0); ALT/SGPT 20 U/L (21-72); AST/SGOT 32 U/L (17-59); BLOOD UREA NITROGEN 22 mg/dL (9-20); CALCIUM 8.6 mg/dl (8.6-10.4); GFR AFRICAN-AMERICAN > 60; GFR NON-AFRICAN AMERICAN 53
--- NOTE | 2017-09-14 09:07 | CP.PCM.PN ---
Subjective - Date & Time of Evaluation Date of Evaluation: 09/14/17 Time of Evaluation: 09:02 - Subjective Subjective: Progress Note for Dr. Verdin Patient seen and examined at bedside. No acute events reported overnight. Patient is resting in bed comfortably at the time of exam. Patient still complains of pain in his lower extremities. He denies having fever, chills, headache, shortness of breath, chest pain or diarrhea. Objective - Vital Signs/Intake and Output Vital Signs (last 24 hours): Temp Pulse Resp BP Pulse Ox 98 F 73 20 130/60 97 09/14/17 08:00 09/14/17 08:00 09/14/17 08:00 09/14/17 08:00 09/14/17 08:00 Intake and Output: 09/14/17 09/14/17 06:59 18:59 Intake Total 920 Output Total 450 Balance 470 - Medications Medications: Current Medications Aspirin (Aspirin Chewable) 81 mg PO DAILY [facility] Clopidogrel Bisulfate (Plavix) 75 mg PO DAILY [facility] Enoxaparin Sodium (Lovenox) 40 mg SC DAILY [facility] Last Admin: 09/13/17 18:45 Dose: 40 mg Famotidine (Pepcid) 20 mg PO DAILY [facility] Furosemide (Lasix) 40 mg PO DAILY [facility] Sodium Chloride (Sodium Chloride 0.9%) 1,000 mls @ 100 mls/hr IV .Q10H [facility] Last Admin: 09/14/17 02:00 Dose: Not Given Vancomycin/Sodium Chloride (Vancomycin 1 Gm/Ns 200 Ml) 1 gm in 200 mls @ 133 mls/hr IVPB Q12H [facility] PRN Reason: Protocol Stop: 09/18/17 18:01 Last Admin: 09/14/17 05:55 Dose: 133 mls/hr Piperacillin Sod/Tazobactam Sod (Zosyn 3.375 Gm Iv Premix) 3.375 gm in 50 mls @ 100 mls/hr IVPB Q6H [facility] PRN Reason: Protocol Last Admin: 09/14/17 03:03 Dose: 100 mls/hr Metoprolol Tartrate (Lopressor) 50 mg PO BID [facility] Last Admin: 09/13/17 18:45 Dose: 50 mg Oxycodone/Acetaminophen (Percocet 5/325 Mg Tab) 1 tab PO Q4H PRN PRN Reason: pain Stop: 09/16/17 17:42 Last Admin: 09/13/17 19:03 Dose: 1 tab - Labs Labs: 09/14/17 06:44 09/14/17 06:44 PT 13.9 SECONDS (9.7-12.2) H 09/13/17 14:52 INR 1.3 09/13/17 14:52 APTT 39 SECONDS (21-34) H 09/13/17 14:52 - Additional Findings Additional findings: - Constitutional Appears: No Acute Distress - Head Exam Head Exam: ATRAUMATIC, NORMOCEPHALIC - Eye Exam Eye Exam: EOMI - ENT Exam ENT Exam: Mucous Membranes Moist - Respiratory Exam Respiratory Exam: Clear to Auscultation, NORMAL BREATHING PATTERN, No wheezes, No Crackles - Cardiovascular Exam Cardiovascular Exam: +S1, +S2 - GI/Abdominal Exam GI & Abdominal Exam: Soft, Normal Bowel Sounds. absent: Tenderness - Extremities Exam Extremities Exam: Pedal Edema Additional comments: bilateral lower extremities erythematous, pitting edema, warm to touch, medial malleolus ulcers b/l with necrotic base malodorous clear discharge soaked the bed sheet - Neurological Exam Neurological Exam: Alert, Awake - Psychiatric Exam Psychiatric exam: Normal Affect - Skin Skin Exam: Warm Assessment and Plan - Assessment and Plan (Free Text) Assessment: Lower extremity wounds Afebrile, no leukocytosis Wound care consulted Zosyn 2.25gm IVPB Q6H (start 09/13) Vancomycin 1g IVPB Q12H (start 09/13) Follow up wound culture Follow up venous doppler Percocet prn for pain ID consulted, Dr. Allison help appreciated PVD Vascular Surgery Dr. Velasquez consulted Follow recommendations Recommend compression stockings and local wound care History of Aortic Valve Replacement Continue Plavix and ASA CAD (coronary artery disease) Patient on ASA and Plavix at home, continue meds. HTN (hypertension) BP controlled Continue Lopressor 25 mg PO BID Hx of Anemia Hgb 9.3, stable Prophylactic measure Pepcid lovenox 40u sc daily PT eval All medical managment as per Dr. Verdin
[2017-09-14] MEDS: Enoxaparin 40 mg Syringe SC SCH (09:44)
[2017-09-14] MEDS: Oxycodone/Acetaminophen 5/325 mg Tab PO PRN (09:55)
--- NOTE | 2017-09-14 11:56 | CP.PCM.CON ---
History of Present Illness - History of Present Illness History of Present Illness: 82M w/ pmhx significant for bilateral lower extremity ulcers 2/2 venous stasis, pvd for 1.5 years, presents to [facility] [place] [facility] w/ complaints of serous discharge and foul smelling dressings. Patient had NIKKO boots placed early August 2017. Patient removed the boots last week and provided self dressings. Patient states there is no increase in the amount of discharge, and no change in the size or swelling of the legs. Patient ambulates with a cane. Denies Current: fevers, chills, chest pain, shortness of breath, nausea, vomiting, diarrhea, changes in urinary or bowel habits PMH: anemia, CAD s/p CABG, HLD, GERD, GID bleed, HTN PSH: CABG, robin, b/l angio w/ stents (2016), cardiac valve replacement, multiple debridements of b/lw LE, B/L skin graft (11/2016) ALL: NKDA SocialHx: former smoker, denies ETOH, recreational drug use FH: non-contributory Review of Systems - Review of Systems All systems: reviewed and no additional remarkable complaints except Review of Systems - Constitutional Constitutional: As Per HPI - EENT Eyes: absent: As Per HPI, Blind Spots, Blurred Vision, Change in Vision, Decreased Night Vision, Diplopia, Discharge, Dry Eye, Exophthalmos, Floaters, Irritation, Itchy Eyes, Loss of Peripheral Vision, Pain, Photophobia, Requires Corrective Lenses, Sees Flashes, Spots in Vision, Tunnel Vision, Other Visual Disturbances, Loss of Vision, Other Ears: absent: As Per HPI, Decreased Hearing, Ear Discharge, Ear Pain, Tinnitus, Abnormal Hearing, Disequilibrium, Dizziness, Other Nose/Mouth/Throat: absent: As Per HPI, Epistaxis, Nasal Congestion, Nasal Discharge, Nasal Obstruction, Nasal Trauma, Nose Pain, Post Nasal Drip, Sinus Pain, Sinus Pressure, Bleeding Gums, Change in Voice, Dental Pain, Dry Mouth, Dysphagia, Halitosis, Hoarsness, Lip Swelling, Mouth Lesions, Mouth Pain, Odynophagia, Sore Throat, Throat Swelling, Tongue Swelling, Facial Pain, Neck Pain, Neck Mass, Other - Cardiovascular Cardiovascular: absent: As Per HPI, Acrocyanosis, Chest Pain, Chest Pain at Rest , Chest Pain with Activity, Claudication, Diaphoresis, Dyspnea, Dyspnea on Exertion, Edema, Irregular Heart Rhythm, Pain Radiating to Arm/Neck/Jaw, Leg Edema, Leg Ulcers, Lightheadedness, Orthopnea, Palpitations, Paroxysmal Nocturnal Dyspnea, Pedal Edema, Radiating Pain, Rapid Heart Rate, Slow Heart Rate, Syncope, Other - Respiratory Respiratory: absent: As Per HPI, Cough, Dyspnea, Hemoptysis, Dyspnea on Exertion , Wheezing, Snoring, Stridor, Pain on Inspiration, Chest Congestion, Excessive Mucous Production, Change in Mucous Color, Pain with Coughing, Other - Gastrointestinal Gastrointestinal: absent: As Per HPI, Abdominal Pain, Belching, Bloating, Change in Bowel Habits, Change in Stool Character, Coffee Ground Emesis, Constipation, Cramping, Diarrhea, Dyspepsia, Dysphagia, Early Satiety, Excessive Flatus, Fecal Incontinence, Heartburn, Hematemesis, Hematochezia, Loose Stools, Melena, Nausea, Odynophagia, Temesmus, Vomiting, Other - Genitourinary Genitourinary: absent: As Per HPI, Change in Urinary Stream, Difficulty Urinating, Dysuria, Flank Pain, Hematuria, Pyuria, Nocturia, Urinary Incontinence, Urinary Frequency, Urinary Hesitance, Urinary Urgency, Voiding Freq/Small Amts, Freq UTI, Hx Renal/Bladder Calculi, Hx /Renal Surgery, Bladder Distension, Other - Musculoskeletal Musculoskeletal: As Per HPI - Integumentary Integumentary: As Per HPI, Skin Pain, Wounds - Neurological Neurological: absent: As Per HPI, Abnormal Gait, Abnormal Hearing, Abnormal Movements, Abnormal Speech, Behavioral Changes, Burning Sensations, Confusion, Convulsions, Disequilibrium, Dizziness, Numbness, Focal Weakness, Frequent Falls , Headaches, Lack of Coordination, Loss of Vision, Memory Loss, Paresthesias, Radicular Pain, Restless Legs, Sensory Deficit, Syncope, Tingling, Tremor, Vertigo, Weakness, Other Visual Disturbances, Other - Psychiatric Psychiatric: absent: As Per HPI, Abnormal Sleep Pattern, Anhedonia, Anxiety, Auditory Hallucinations, Behavioral Changes, Change in Appetite, Change in Libido, Confusion, Depression, Difficulty Concentrating, Hallucinations, Homicidal Ideation, Hopelessness, Irritability, Memory Loss, Mood Swings, Panic Attacks, Paranoia, Suicidal Ideation, Visual Hallucinations, Tactile Hallucinations, Other - Endocrine Endocrine: absent: As Per HPI, Change in Body Appearance, Change in Libido, Cold Intolorance, Deepening of Voice, Excessive Sweating, Fatigue, Flushing, Heat Intolorance, Increase in Ring/Shoe/Hat Size, Palpitations, Polydipsia, Polyphagia, Polyuria, Other - Hematologic/Lymphatic Hematologic: absent: As Per HPI, Easy Bleeding, Easy Bruising, Lymphadenopathy, Other Past Patient History - Past Medical History & Family History Past Medical History?: Yes - Past Social History Smoking Status: Current Some Days Smoker - CARDIAC Hx Hypertension: Yes Hx Peripheral Edema: Yes - PULMONARY Hx Respiratory Disorders: No - NEUROLOGICAL Hx Neurological Disorder: No - HEENT Hx HEENT Problems: No - ENDOCRINE/METABOLIC Hx Endocrine Disorders: No - HEMATOLOGICAL/ONCOLOGICAL Hx Anemia: Yes - INTEGUMENTARY Hx Dermatological Problems: Yes Other/Comment: Mark anterior lower leg-w/scattered open dry ulcers - MUSCULOSKELETAL/RHEUMATOLOGICAL Hx Arthritis: Yes Hx Fractures: Yes (ANKLE) - GASTROINTESTINAL Hx Gall Bladder Disease: Yes (GALLSTONES ROBIN) - GENITOURINARY/GYNECOLOGICAL Hx Genitourinary Disorders: No - PSYCHIATRIC Hx Substance Use: No - SURGICAL HISTORY Hx Cholecystectomy: Yes Hx Coronary Artery Bypass Graft: Yes - ANESTHESIA Hx Anesthesia: Yes Hx Anesthesia Reactions: No Hx Malignant Hyperthermia: No Meds Allergies/Adverse Reactions: Allergies Allergy/AdvReac Type Severity Reaction Status Date / Time No Known Allergies Allergy Verified 08/10/17 09:54 - Medications Medications: Current Medications Aspirin (Aspirin Chewable) 81 mg PO DAILY [facility] Last Admin: 09/14/17 09:44 Dose: 81 mg Clopidogrel Bisulfate (Plavix) 75 mg PO DAILY [facility] Last Admin: 09/14/17 09:44 Dose: 75 mg Enoxaparin Sodium (Lovenox) 40 mg SC DAILY [facility] Last Admin: 09/14/17 09:44 Dose: 40 mg Famotidine (Pepcid) 20 mg PO DAILY [facility] Last Admin: 09/14/17 09:44 Dose: 20 mg Furosemide (Lasix) 40 mg PO DAILY [facility] Last Admin: 09/14/17 09:44 Dose: 40 mg Sodium Chloride (Sodium Chloride 0.9%) 1,000 mls @ 100 mls/hr IV .Q10H [facility] Last Admin: 09/14/17 02:00 Dose: Not Given Vancomycin/Sodium Chloride (Vancomycin 1 Gm/Ns 200 Ml) 1 gm in 200 mls @ 133 mls/hr IVPB Q12H [facility] PRN Reason: Protocol Stop: 09/18/17 18:01 Last Admin: 09/14/17 05:55 Dose: 133 mls/hr Piperacillin Sod/Tazobactam Sod (Zosyn 3.375 Gm Iv Premix) 3.375 gm in 50 mls @ 100 mls/hr IVPB Q6H [facility] PRN Reason: Protocol Last Admin: 09/14/17 09:45 Dose: 100 mls/hr Metoprolol Tartrate (Lopressor) 50 mg PO BID [facility] Last Admin: 09/14/17 09:44 Dose: 50 mg Oxycodone/Acetaminophen (Percocet 5/325 Mg Tab) 1 tab PO Q4H PRN PRN Reason: pain Stop: 09/16/17 17:42 Last Admin: 09/14/17 09:55 Dose: 1 tab Physical Exam - Constitutional Appears: Non-toxic, Chronically Ill - Head Exam Head Exam: NORMOCEPHALIC - Eye Exam Eye Exam: PERRL - ENT Exam ENT Exam: Mucous Membranes Dry - Neck Exam Neck exam: Negative for: Lymphadenopathy - Respiratory Exam Respiratory Exam: Decreased Breath Sounds - Cardiovascular Exam Cardiovascular Exam: REGULAR RHYTHM, +S1, +S2 - GI/Abdominal Exam GI & Abdominal Exam: Diminished Bowel Sounds, Soft - Rectal Exam Rectal Exam: Deferred - Exam Exam: NORMAL INSPECTION - Extremities Exam Extremities exam: Positive for: pedal edema, tenderness. Negative for: calf tenderness, pedal pulses present Additional comments: bilat leg ulcers weeping - Back Exam Back exam: absent: CVA tenderness (L), CVA tenderness (R) - Neurological Exam Neurological exam: Alert, CN II-XII Intact, Oriented x3, Reflexes Normal - Psychiatric Exam Psychiatric exam: Depressed - Skin Skin Exam: Dry Results - Vital Signs Recent Vital Signs: Last Vital Signs Temp 98 F 09/14/17 08:00 Pulse 73 09/14/17 08:00 Resp 20 09/14/17 08:00 BP 130/60 09/14/17 09:44 Pulse Ox 97 09/14/17 08:00 - Labs Result Diagrams: 09/14/17 06:44 09/14/17 06:44 Labs: Laboratory Results - last 24 hr 09/13/17 09/13/17 09/13/17 14:12 14:52 14:52 WBC 10.5 D RBC 4.20 L Hgb 10.0 L Hct 31.3 L MCV 74.5 L D MCH 23.8 L MCHC 31.9 L RDW 25.1 H Plt Count 170 MPV 9.1 Neut % (Auto) 71.9 Lymph % (Auto) 12.9 L Wells % (Auto) 11.8 H Eos % (Auto) 3.0 Baso % (Auto) 0.4 Neut # (Auto) 7.6 H Lymph # (Auto) 1.4 Wells # (Auto) 1.2 H Eos # (Auto) 0.3 Baso # (Auto) 0.0 PT INR APTT Sodium 137 Potassium 5.2 Chloride 106 Carbon Dioxide 21 L Anion Gap 15 BUN 34 H Creatinine 1.6 H Est GFR ( Amer) 50 Est GFR (Non-Af Amer) 41 POC Glucose (mg/dL) 93 Random Glucose 80 Calcium 8.6 Total Bilirubin 0.8 AST 42 ALT < 6 L D Alkaline Phosphatase 87 Troponin I < 0.0120 NT-Pro-B Natriuret Pep 737 Total Protein 7.9 Albumin 3.4 L Globulin 4.5 H Albumin/Globulin Ratio 0.8 L 09/13/17 09/14/17 09/14/17 14:52 06:44 06:44 WBC 9.7 RBC 3.96 L Hgb 9.5 L Hct 29.2 L MCV 73.8 L MCH 24.0 L MCHC 32.6 L RDW 24.8 H Plt Count 136 MPV 9.4 Neut % (Auto) 66.8 Lymph % (Auto) 17.8 L Wells % (Auto) 12.7 H Eos % (Auto) 2.3 Baso % (Auto) 0.4 Neut # (Auto) 6.4 Lymph # (Auto) 1.7 Wells # (Auto) 1.2 H Eos # (Auto) 0.2 Baso # (Auto) 0.0 PT 13.9 H INR 1.3 APTT 39 H Sodium 138 Potassium 4.5 Chloride 110 H Carbon Dioxide 21 L Anion Gap 12 BUN 22 H Creatinine 1.3 Est GFR ( Amer) > 60 Est GFR (Non-Af Amer) 53 POC Glucose (mg/dL) Random Glucose 79 Calcium 8.6 Total Bilirubin 0.7 AST 32 ALT 20 L D Alkaline Phosphatase 87 Troponin I NT-Pro-B Natriuret Pep Total Protein 6.6 Albumin 2.7 L D Globulin 3.9 Albumin/Globulin Ratio 0.7 L Assessment & Plan (1) Acute renal insufficiency Status: Acute (2) Ischemic ulcer of ankle Status: Acute (3) Anemia Status: Acute (4) CAD (coronary artery disease) Status: Acute (5) Cellulitis Status: Acute (6) Dehydration Status: Acute (7) HTN (hypertension) Status: Acute (8) Heart valve replaced Status: Acute - Assessment and Plan (Free Text) Assessment: bilat leg ulcers/ cellulitis severe PVD consider Vascular eval consider OR debridement cont wound car IV antibiotics
--- NOTE | 2017-09-15 02:18 | CARD ---
APPROVED REPORT EKG Measurement Heart [id number] <Conclusion> Normal sinus rhythm Moderate voltage criteria for LVH, may be normal variant Nonspecific T wave abnormality Abnormal ECG
[2017-09-15] MEDS: Sodium Chloride 0.9% 1,000 ML IV SCH ×3 (02:30→18:36)
[2017-09-15] MEDS: Piperacill/Tazo 3.375gm in Dex 3.375 GM/50 ML BAG IVPB SCH ×4 (03:00→20:11)
[2017-09-15] MEDS: Vancomycin 1 gm/NS 200 ml 1 GM/200 ML BAG IVPB SCH ×2 (05:20→18:28)
[2017-09-15 06:46] LABS: BASO % 0.5 % (0.0-2.0); EOS # 0.5 K/uL (0.0-0.7); EOS % 7.1 % (0.0-4.0); HEMOGLOBIN 9.8 g/dL (12.0-18.0); LYMPH % 14.6 % (20.0-40.0); MEAN CELL VOLUME 73.6 fL (80.0-94.0); MEAN CORPUSCULAR HEMOGLOBIN 23.6 pg (27.0-31.0); MEAN CORPUSCULAR HGB CONC 32.1 g/dL (33.0-37.0); MEAN PLATELET VOLUME 9.1 fL (7.2-11.7); MONO # 0.7 K/uL (0.0-0.8); NEUT # 4.4 K/uL (1.8-7.0); NEUT % 66.8 % (50.0-75.0); NRBC % 0.1 % (0.0-2.0); RBC 4.15 Mil/uL (4.40-5.90); RED CELL DISTRIBUTION WIDTH 24.7 % (11.5-14.5); WHITE BLOOD COUNT 6.6 K/uL (4.8-10.8)
[2017-09-15 07:03] LABS: ALB/GLOB RATIO 0.7 (1.0-2.1); ALBUMIN 2.6 g/dL (3.5-5.0); ALT/SGPT 16 U/L (21-72); AST/SGOT 38 U/L (17-59); BLOOD UREA NITROGEN 22 mg/dL (9-20); CALCIUM 8.8 mg/dl (8.6-10.4); GFR AFRICAN-AMERICAN > 60; GFR NON-AFRICAN AMERICAN 53
[2017-09-15] MEDS: Enoxaparin 40 mg Syringe SC SCH (11:02)
--- NOTE | 2017-09-15 19:23 | CP.PCM.CON ---
History of Present Illness - History of Present Illness History of Present Illness: Podiatry - Dr. Conner 82M with extensive PMHx including PVD, anemia, CAD s/p CABG, HLD, GERD, GID bleed, HTN, seen and evaluated for lower extremity ulcerations. Patient states he has had ulcers to the front of both ankles on and off for approximately 1 year, and has worsened in severity which prompted him to present to ED. At present, patient complains of constant pain to both ulcer sites, and as a result has difficulty moving his legs. Patient admits he now limits his ambulation secondary to pain. Per chart, patient sees Dr. Velasquez for treatment. No other pedal complaints. Denies N/V/F/D/C/SOB. Review of Systems - Review of Systems All systems: reviewed and no additional remarkable complaints except (as per HPI ) Past Patient History - Past Medical History & Family History Past Medical History?: Yes - Past Social History Smoking Status: Current Some Days Smoker - CARDIAC Hx Hypertension: Yes Hx Peripheral Edema: Yes - PULMONARY Hx Respiratory Disorders: No - NEUROLOGICAL Hx Neurological Disorder: No - HEENT Hx HEENT Problems: No - ENDOCRINE/METABOLIC Hx Endocrine Disorders: No - HEMATOLOGICAL/ONCOLOGICAL Hx Anemia: Yes - INTEGUMENTARY Hx Dermatological Problems: Yes Other/Comment: Mark anterior lower leg-w/scattered open dry ulcers - MUSCULOSKELETAL/RHEUMATOLOGICAL Hx Arthritis: Yes Hx Fractures: Yes (ANKLE) - GASTROINTESTINAL Hx Gall Bladder Disease: Yes (GALLSTONES ROBIN) - GENITOURINARY/GYNECOLOGICAL Hx Genitourinary Disorders: No - PSYCHIATRIC Hx Substance Use: No - SURGICAL HISTORY Hx Cholecystectomy: Yes Hx Coronary Artery Bypass Graft: Yes - ANESTHESIA Hx Anesthesia: Yes Hx Anesthesia Reactions: No Hx Malignant Hyperthermia: No Meds Allergies/Adverse Reactions: Allergies Allergy/AdvReac Type Severity Reaction Status Date / Time No Known Allergies Allergy Verified 08/10/17 09:54 - Medications Medications: Current Medications Aspirin (Aspirin Chewable) 81 mg PO DAILY [facility] Last Admin: 09/15/17 11:00 Dose: 81 mg Clopidogrel Bisulfate (Plavix) 75 mg PO DAILY [facility] Last Admin: 09/15/17 11:00 Dose: 75 mg Enoxaparin Sodium (Lovenox) 40 mg SC DAILY [facility] Last Admin: 09/15/17 11:02 Dose: 40 mg Famotidine (Pepcid) 20 mg PO DAILY [facility] Last Admin: 09/15/17 11:05 Dose: 20 mg Furosemide (Lasix) 40 mg PO DAILY [facility] Last Admin: 09/15/17 11:00 Dose: 40 mg Sodium Chloride (Sodium Chloride 0.9%) 1,000 mls @ 100 mls/hr IV .Q10H [facility] Last Admin: 09/15/17 18:36 Dose: 100 mls/hr Vancomycin/Sodium Chloride (Vancomycin 1 Gm/Ns 200 Ml) 1 gm in 200 mls @ 133 mls/hr IVPB Q12H [facility] PRN Reason: Protocol Stop: 09/18/17 18:01 Last Admin: 09/15/17 18:28 Dose: 133 mls/hr Piperacillin Sod/Tazobactam Sod (Zosyn 3.375 Gm Iv Premix) 3.375 gm in 50 mls @ 100 mls/hr IVPB Q6H [facility] PRN Reason: Protocol Last Admin: 09/15/17 14:28 Dose: 100 mls/hr Metoprolol Tartrate (Lopressor) 50 mg PO BID [facility] Last Admin: 09/15/17 18:31 Dose: Not Given Oxycodone/Acetaminophen (Percocet 5/325 Mg Tab) 1 tab PO Q4H [facility]N PRN Reason: pain Stop: 09/16/17 17:42 Last Admin: 09/14/17 09:55 Dose: 1 tab Physical Exam - Constitutional Appears: Well, Non-toxic, No Acute Distress - Extremities Exam Additional comments: VASC: DP pulses weakly palpable 1/4 b/l. PT pulses nonpalpable b/l. CFT >3 seconds. Temperature gradient warm to cool. Bilateral LE edema noted. NEURO: Gross sensation diminished b/l. DERM: Full thickness ulcerations encompassing anterior/medial/lateral ankle joint b/l - noted to have a mixed fibrogranular base and erythematous rim; malodor present; serosanguinous drainage present; (-)probe to bone. Ulceration measuring 0.4 x 0.4 x 0.2 cm noted sub met head 1 right foot with hyperkeratotic rim. Hyperkeratotis noted to distal tuft of left hallux. ORTHO: Pain on palpation noted to ulcerations. Muscle strength 5/5 for all dorsiflexors, plantarflexors, inverters, and everters b/l. Ankle joint ROM limited secondary to pain b/l. - Neurological Exam Neurological exam: Alert, Oriented x3 - Psychiatric Exam Psychiatric exam: Normal Affect, Normal Mood Results - Vital Signs Recent Vital Signs: Last Vital Signs Temp 98.2 F 09/15/17 15:00 Pulse 68 09/15/17 15:00 Resp 20 09/15/17 15:00 BP 119/55 L 09/15/17 15:00 Pulse Ox 96 09/15/17 15:00 - Labs Result Diagrams: 09/15/17 06:39 09/15/17 06:39 Labs: Laboratory Results - last 24 hr 09/15/17 09/15/17 09/15/17 06:39 06:39 17:04 WBC 6.6 RBC 4.15 L Hgb 9.8 L Hct 30.6 L MCV 73.6 L MCH 23.6 L MCHC 32.1 L RDW 24.7 H Plt Count 145 MPV 9.1 Neut % (Auto) 66.8 Lymph % (Auto) 14.6 L Hardy % (Auto) 11.0 H Eos % (Auto) 7.1 H Baso % (Auto) 0.5 Neut # (Auto) 4.4 Lymph # (Auto) 1.0 Hardy # (Auto) 0.7 Eos # (Auto) 0.5 Baso # (Auto) 0.0 Sodium 141 Potassium 4.5 Chloride 111 H Carbon Dioxide 22 Anion Gap 13 BUN 22 H Creatinine 1.3 Est GFR ( Amer) > 60 Est GFR (Non-Af Amer) 53 Random Glucose 76 Calcium 8.8 Total Bilirubin 0.4 AST 38 ALT 16 L Alkaline Phosphatase 85 Total Protein 6.4 Albumin 2.6 L Globulin 3.7 Albumin/Globulin Ratio 0.7 L Vancomycin Trough 14.5 H Assessment & Plan - Assessment and Plan (Free Text) Assessment: 82M with venous stasis ulcerations to bilateral ankles 2/2 PVD Plan: Patient seen and evaluated alongside attending, Dr. Conner Afebrile, WBC 6.6 f/u arterial duplex L leg WCx: (prelim) proteus mirabilis, enterococcus faecalis, gram negative juan #2 Local wound care = xeroform, DSD -bactroban ordered for QD dressing changes Continue abx per ID - vancomycin, zosyn Pain regimen per medicine Podiatry will continue to follow
[2017-09-16] MEDS: Piperacill/Tazo 3.375gm in Dex 3.375 GM/50 ML BAG IVPB SCH ×4 (03:04→20:25)
[2017-09-16] MEDS: Sodium Chloride 0.9% 1,000 ML IV SCH ×3 (04:00→14:06)
[2017-09-16] MEDS: Vancomycin 1 gm/NS 200 ml 1 GM/200 ML BAG IVPB SCH ×2 (06:03→17:38)
[2017-09-16 06:58] LABS: BASO % 0.5 % (0.0-2.0); EOS # 0.7 K/uL (0.0-0.7); EOS % 7.8 % (0.0-4.0); HEMOGLOBIN 9.8 g/dL (12.0-18.0); LYMPH # 1.6 K/uL (1.0-4.3); LYMPH % 18.9 % (20.0-40.0); MEAN CELL VOLUME 73.1 fL (80.0-94.0); MEAN CORPUSCULAR HEMOGLOBIN 23.5 pg (27.0-31.0); MEAN CORPUSCULAR HGB CONC 32.2 g/dL (33.0-37.0); MEAN PLATELET VOLUME 8.9 fL (7.2-11.7); MONO # 0.8 K/uL (0.0-0.8); NEUT # 5.3 K/uL (1.8-7.0); NEUT % 62.8 % (50.0-75.0); RBC 4.15 Mil/uL (4.40-5.90); WHITE BLOOD COUNT 8.4 K/uL (4.8-10.8)
[2017-09-16 07:12] LABS: ALB/GLOB RATIO 0.7 (1.0-2.1); ALBUMIN 2.8 g/dL (3.5-5.0); ALT/SGPT 21 U/L (21-72); AST/SGOT 34 U/L (17-59); BLOOD UREA NITROGEN 16 mg/dL (9-20); CALCIUM 8.8 mg/dl (8.6-10.4); GFR AFRICAN-AMERICAN > 60; GFR NON-AFRICAN AMERICAN 58
[2017-09-16] MEDS: guaiFENesin 100 mg/5 ml Syrup UD PO SCH ×3 (09:55→17:38)
--- NOTE | 2017-09-16 10:10 | CP.PCM.PN ---
Subjective - Date & Time of Evaluation Date of Evaluation: 09/16/17 Time of Evaluation: 10:09 - Subjective Subjective: Podiatry - Dr. Conner 82M seen and evaluated this AM for bilateral lower extremity ulcerations. Patient reports decreased pain today, well-controlled. Dressings to bilateral LE remain clean/dry/intact. Denies N/V/F/D/C/SOB. Objective - Vital Signs/Intake and Output Vital Signs (last 24 hours): Temp Pulse Resp BP Pulse Ox 98 F 68 20 155/65 H 97 09/16/17 07:58 09/16/17 07:58 09/16/17 07:58 09/16/17 07:58 09/16/17 07:58 Intake and Output: 09/16/17 09/16/17 06:59 18:59 Intake Total 2250 Output Total 750 Balance 1500 - Medications Medications: Current Medications Aspirin (Aspirin Chewable) 81 mg PO DAILY [facility] Last Admin: 09/15/17 11:00 Dose: 81 mg Clopidogrel Bisulfate (Plavix) 75 mg PO DAILY [facility] Last Admin: 09/15/17 11:00 Dose: 75 mg Enoxaparin Sodium (Lovenox) 40 mg SC DAILY [facility] Last Admin: 09/15/17 11:02 Dose: 40 mg Famotidine (Pepcid) 20 mg PO DAILY [facility] Last Admin: 09/15/17 11:05 Dose: 20 mg Furosemide (Lasix) 40 mg PO DAILY [facility] Last Admin: 09/15/17 11:00 Dose: 40 mg Guaifenesin (Robitussin) 100 mg PO Q6 [facility] Sodium Chloride (Sodium Chloride 0.9%) 1,000 mls @ 100 mls/hr IV .Q10H [facility] Last Admin: 09/16/17 04:00 Dose: Not Given Vancomycin/Sodium Chloride (Vancomycin 1 Gm/Ns 200 Ml) 1 gm in 200 mls @ 133 mls/hr IVPB Q12H [facility] PRN Reason: Protocol Stop: 09/18/17 18:01 Last Admin: 09/16/17 06:03 Dose: 133 mls/hr Piperacillin Sod/Tazobactam Sod (Zosyn 3.375 Gm Iv Premix) 3.375 gm in 50 mls @ 100 mls/hr IVPB Q6H [facility] PRN Reason: Protocol Last Admin: 09/16/17 08:12 Dose: 100 mls/hr Metoprolol Tartrate (Lopressor) 50 mg PO BID [facility] Last Admin: 09/15/17 18:31 Dose: Not Given Mupirocin (Bactroban Ointment) 0 gm TOP DAILY [facility] Last Admin: 09/16/17 06:01 Dose: 1 unit Oxycodone/Acetaminophen (Percocet 5/325 Mg Tab) 1 tab PO Q4H PRN PRN Reason: pain Stop: 09/16/17 17:42 Last Admin: 09/14/17 09:55 Dose: 1 tab - Labs Labs: 09/16/17 06:50 09/16/17 06:50 PT 13.9 SECONDS (9.7-12.2) H 09/13/17 14:52 INR 1.3 09/13/17 14:52 APTT 39 SECONDS (21-34) H 09/13/17 14:52 - Constitutional Appears: Well, Non-toxic, No Acute Distress - Extremities Exam Additional comments: VASC: DP pulses weakly palpable 1/4 b/l. PT pulses nonpalpable b/l. CFT >3 seconds. Temperature gradient warm to cool. Bilateral LE edema noted. NEURO: Gross sensation diminished b/l. DERM: Full thickness ulcerations encompassing anterior/medial/lateral ankle joint b/l - noted to have a mixed fibrogranular base and erythematous rim; malodor present; serosanguinous drainage present; (-)probe to bone. Ulceration measuring 0.4 x 0.4 x 0.2 cm noted sub met head 1 right foot with hyperkeratotic rim. Hyperkeratotis noted to distal tuft of left hallux. ORTHO: Pain on palpation noted to ulcerations. Muscle strength 5/5 for all dorsiflexors, plantarflexors, inverters, and everters b/l. Ankle joint ROM limited secondary to pain b/l. - Neurological Exam Neurological Exam: Alert, Awake, Oriented x3 - Psychiatric Exam Psychiatric exam: Normal Affect, Normal Mood Assessment and Plan - Assessment and Plan (Free Text) Assessment: 82M with venous stasis ulcerations to bilateral ankles 2/2 PVD Plan: Patient seen and evaluated Discussed with attending, Dr. Conner Afebrile, WBC 8.4 f/u arterial duplex L leg WCx: proteus mirabilis, enterococcus faecalis, klebsiella pneumoniae Local wound care = bactroban, xeroform, DSD Continue abx per ID - vancomycin, zosyn Pain regimen per medicine Per chart, multiple episodes of improvement of wound in hospital however when discharged home patient is non-compliant and wounds worsen Podiatry will continue to follow
[2017-09-16] MEDS: Enoxaparin 40 mg Syringe SC SCH (11:15)
--- NOTE | 2017-09-16 11:44 | CP.PCM.PN ---
Subjective - Date & Time of Evaluation Date of Evaluation: 09/16/17 Time of Evaluation: 11:42 - Subjective Subjective: Surgery Pt seen and examined. Denies Fever, nausea, diarrhea. Pain controlled. Objective - Vital Signs/Intake and Output Vital Signs (last 24 hours): Temp Pulse Resp BP Pulse Ox 98 F 68 20 155/65 H 97 09/16/17 07:58 09/16/17 07:58 09/16/17 07:58 09/16/17 11:16 09/16/17 07:58 Intake and Output: 09/16/17 09/16/17 06:59 18:59 Intake Total 2250 Output Total 750 Balance 1500 - Medications Medications: Current Medications Aspirin (Aspirin Chewable) 81 mg PO DAILY [facility] Last Admin: 09/16/17 11:13 Dose: 81 mg Clopidogrel Bisulfate (Plavix) 75 mg PO DAILY [facility] Last Admin: 09/16/17 11:13 Dose: 75 mg Enoxaparin Sodium (Lovenox) 40 mg SC DAILY [facility] Last Admin: 09/16/17 11:15 Dose: 40 mg Famotidine (Pepcid) 20 mg PO DAILY [facility] Last Admin: 09/16/17 11:13 Dose: 20 mg Furosemide (Lasix) 40 mg PO DAILY [facility] Last Admin: 09/16/17 11:16 Dose: 40 mg Guaifenesin (Robitussin) 100 mg PO Q6 [facility] Last Admin: 09/16/17 09:55 Dose: 100 mg Sodium Chloride (Sodium Chloride 0.9%) 1,000 mls @ 100 mls/hr IV .Q10H [facility] Last Admin: 09/16/17 11:14 Dose: 100 mls/hr Vancomycin/Sodium Chloride (Vancomycin 1 Gm/Ns 200 Ml) 1 gm in 200 mls @ 133 mls/hr IVPB Q12H [facility] PRN Reason: Protocol Stop: 09/18/17 18:01 Last Admin: 09/16/17 06:03 Dose: 133 mls/hr Piperacillin Sod/Tazobactam Sod (Zosyn 3.375 Gm Iv Premix) 3.375 gm in 50 mls @ 100 mls/hr IVPB Q6H [facility] PRN Reason: Protocol Last Admin: 09/16/17 08:12 Dose: 100 mls/hr Metoprolol Tartrate (Lopressor) 50 mg PO BID [facility] Last Admin: 09/16/17 11:13 Dose: 50 mg Mupirocin (Bactroban Ointment) 0 gm TOP DAILY [facility] Last Admin: 09/16/17 11:18 Dose: Not Given Oxycodone/Acetaminophen (Percocet 5/325 Mg Tab) 1 tab PO Q4H [facility] PRN Reason: pain Stop: 09/16/17 17:42 Last Admin: 09/14/17 09:55 Dose: 1 tab - Labs Labs: 09/16/17 06:50 09/16/17 06:50 PT 13.9 SECONDS (9.7-12.2) H 09/13/17 14:52 INR 1.3 09/13/17 14:52 APTT 39 SECONDS (21-34) H 09/13/17 14:52 - Constitutional Appears: No Acute Distress - Head Exam Head Exam: ATRAUMATIC, NORMAL INSPECTION, NORMOCEPHALIC - Eye Exam Eye Exam: EOMI, Normal appearance, PERRL Pupil Exam: NORMAL ACCOMODATION, PERRL - ENT Exam ENT Exam: Mucous Membranes Moist, Normal Exam - Neck Exam Neck Exam: Full ROM, Normal Inspection. absent: Lymphadenopathy - Respiratory Exam Respiratory Exam: Clear to Ausculation Bilateral, NORMAL BREATHING PATTERN - Cardiovascular Exam Cardiovascular Exam: REGULAR RHYTHM, +S1, +S2. absent: Murmur - GI/Abdominal Exam GI & Abdominal Exam: Soft, Normal Bowel Sounds. absent: Tenderness - Extremities Exam Extremities Exam: Pedal Edema, Tenderness. absent: Normal Capillary Refill, Normal Inspection Additional comments: b/l LE discolorations. Dressing C/D/I. - Back Exam Back Exam: NORMAL INSPECTION - Neurological Exam Neurological Exam: Alert, Awake, CN II-XII Intact, Oriented x3 - Psychiatric Exam Psychiatric exam: Normal Affect, Normal Mood - Skin Skin Exam: Erythema, Warm. absent: Normal Color (discoloration) Assessment and Plan - Assessment and Plan (Free Text) Assessment: 82M w/ PVD, venous stasis, chronic b/l LE wounds Plan: Dressing change PRN elevate lower extremities recommend compression stockings and local wound care * as discussed before with patient, multiple episodes of improvement of ounds in hosptial hwoever w/ discharged home pt is non-compliant and wounds worsen continue medical management no surgical intervention indicated at this time local wound care will discuss w/ surgical attending
--- NOTE | 2017-09-16 17:20 | CP.PCM.PN ---
Subjective - Date & Time of Evaluation Date of Evaluation: 09/16/17 Time of Evaluation: 08:00 - Subjective Subjective: afeb c/o pain bandages with drainage Objective - Vital Signs/Intake and Output Vital Signs (last 24 hours): Temp Pulse Resp BP Pulse Ox 98 F 68 20 155/65 H 97 09/16/17 07:58 09/16/17 07:58 09/16/17 07:58 09/16/17 11:16 09/16/17 07:58 Intake and Output: 09/16/17 09/16/17 06:59 18:59 Intake Total 2250 Output Total 750 Balance 1500 - Medications Medications: Current Medications Aspirin (Aspirin Chewable) 81 mg PO DAILY [facility] Last Admin: 09/16/17 11:13 Dose: 81 mg Clopidogrel Bisulfate (Plavix) 75 mg PO DAILY [facility] Last Admin: 09/16/17 11:13 Dose: 75 mg Enoxaparin Sodium (Lovenox) 40 mg SC DAILY [facility] Last Admin: 09/16/17 11:15 Dose: 40 mg Famotidine (Pepcid) 20 mg PO DAILY [facility] Last Admin: 09/16/17 11:13 Dose: 20 mg Furosemide (Lasix) 40 mg PO DAILY [facility] Last Admin: 09/16/17 11:16 Dose: 40 mg Guaifenesin (Robitussin) 100 mg PO Q6 [facility] Last Admin: 09/16/17 12:00 Dose: Not Given Vancomycin/Sodium Chloride (Vancomycin 1 Gm/Ns 200 Ml) 1 gm in 200 mls @ 133 mls/hr IVPB Q12H [facility] PRN Reason: Protocol Stop: 09/18/17 18:01 Last Admin: 09/16/17 06:03 Dose: 133 mls/hr Piperacillin Sod/Tazobactam Sod (Zosyn 3.375 Gm Iv Premix) 3.375 gm in 50 mls @ 100 mls/hr IVPB Q6H [facility] PRN Reason: Protocol Last Admin: 09/16/17 14:07 Dose: 100 mls/hr Metoprolol Tartrate (Lopressor) 50 mg PO BID [facility] Last Admin: 09/16/17 11:13 Dose: 50 mg Mupirocin (Bactroban Ointment) 0 gm TOP DAILY [facility] Last Admin: 09/16/17 11:18 Dose: Not Given Oxycodone/Acetaminophen (Percocet 5/325 Mg Tab) 1 tab PO Q4H [facility] PRN Reason: pain Stop: 09/16/17 17:42 Last Admin: 09/14/17 09:55 Dose: 1 tab - Labs Labs: 09/16/17 06:50 09/16/17 06:50 PT 13.9 SECONDS (9.7-12.2) H 09/13/17 14:52 INR 1.3 09/13/17 14:52 APTT 39 SECONDS (21-34) H 09/13/17 14:52 - Constitutional Appears: Non-toxic, Chronically Ill - Head Exam Head Exam: NORMOCEPHALIC - Eye Exam Eye Exam: PERRL - ENT Exam ENT Exam: Mucous Membranes Dry - Neck Exam Neck Exam: absent: Lymphadenopathy - Respiratory Exam Respiratory Exam: Decreased Breath Sounds - Cardiovascular Exam Cardiovascular Exam: REGULAR RHYTHM - GI/Abdominal Exam GI & Abdominal Exam: Distended - Rectal Exam Rectal Exam: Deferred - Extremities Exam Additional comments: VASC: DP pulses weakly palpable 1/4 b/l. PT pulses nonpalpable b/l. CFT >3 seconds. Temperature gradient warm to cool. Bilateral LE edema noted. NEURO: Gross sensation diminished b/l. DERM: Full thickness ulcerations encompassing anterior/medial/lateral ankle joint b/l - noted to have a mixed fibrogranular base and erythematous rim; malodor present; serosanguinous drainage present; (-)probe to bone. Ulceration measuring 0.4 x 0.4 x 0.2 cm noted sub met head 1 right foot with hyperkeratotic rim. Hyperkeratotis noted to distal tuft of left hallux. ORTHO: Pain on palpation noted to ulcerations. Muscle strength 5/5 for all dorsiflexors, plantarflexors, inverters, and everters b/l. Ankle joint ROM limited secondary to pain b/l. - Back Exam Back Exam: absent: CVA tenderness (L), CVA tenderness (R) - Neurological Exam Neurological Exam: Alert, Awake - Psychiatric Exam Psychiatric exam: Normal Mood Assessment and Plan (1) Acute renal insufficiency Status: Acute (2) Ischemic ulcer of ankle Status: Acute (3) Anemia Status: Acute (4) CAD (coronary artery disease) Status: Acute (5) Cellulitis Status: Acute (6) Dehydration Status: Acute (7) HTN (hypertension) Status: Acute (8) Heart valve replaced Status: Acute - Assessment and Plan (Free Text) Assessment: to discuss options with podiatry for debridement will cont iv antibiotics
[2017-09-17] MEDS: guaiFENesin 100 mg/5 ml Syrup UD PO SCH ×5 (00:17→17:39)
[2017-09-17] MEDS: Sodium Chloride 0.9% 1,000 ML IV SCH (00:19)
[2017-09-17] MEDS: Piperacill/Tazo 3.375gm in Dex 3.375 GM/50 ML BAG IVPB SCH ×4 (03:09→21:41)
[2017-09-17] MEDS: Vancomycin 1 gm/NS 200 ml 1 GM/200 ML BAG IVPB SCH ×2 (06:01→17:39)
[2017-09-17 06:42] LABS: BASO % 0.4 % (0.0-2.0); EOS # 0.5 K/uL (0.0-0.7); EOS % 6.6 % (0.0-4.0); HEMOGLOBIN 9.6 g/dL (12.0-18.0); LYMPH # 1.5 K/uL (1.0-4.3); LYMPH % 20.3 % (20.0-40.0); MEAN CELL VOLUME 73.8 fL (80.0-94.0); MEAN CORPUSCULAR HEMOGLOBIN 23.6 pg (27.0-31.0); MEAN CORPUSCULAR HGB CONC 31.9 g/dL (33.0-37.0); MEAN PLATELET VOLUME 8.8 fL (7.2-11.7); MONO # 0.8 K/uL (0.0-0.8); MONO % 10.8 % (0.0-10.0); NEUT # 4.5 K/uL (1.8-7.0); NEUT % 61.9 % (50.0-75.0); RBC 4.07 Mil/uL (4.40-5.90); RED CELL DISTRIBUTION WIDTH 24.7 % (11.5-14.5); WHITE BLOOD COUNT 7.3 K/uL (4.8-10.8)
[2017-09-17 07:01] LABS: ALB/GLOB RATIO 0.7 (1.0-2.1); ALBUMIN 2.6 g/dL (3.5-5.0); ALT/SGPT 23 U/L (21-72); AST/SGOT 36 U/L (17-59); BLOOD UREA NITROGEN 12 mg/dL (9-20); CALCIUM 8.6 mg/dl (8.6-10.4); GFR AFRICAN-AMERICAN > 60; GFR NON-AFRICAN AMERICAN > 60
--- NOTE | 2017-09-17 08:40 | HP ---
SUBJECTIVE: The patient was admitted to hospital with chief complaint of leg pain and swelling. The patient came to the ER, advised admission. The patient has history of chronic septal disease, history of chronic infection of the lower extremity, had multiple admissions for the same. PHYSICAL EXAMINATION: GENERAL: The patient is awake, alert, and oriented. VITAL SIGNS: Temperature 98, pulse is 90. HEENT: Within normal limits. NECK: Supple. CHEST: Symmetrical. HEART: Regular. ABDOMEN: Soft. EXTREMITIES: The lower extremity is sore and . ASSESSMENT AND PLAN: telemetry, peripheral vascular disease. The patient to get bedrest. IV antibiotics. Brandy Verdin MD
--- NOTE | 2017-09-17 08:40 | PN ---
DATE: 09/15/2017 SUBJECTIVE: The patient getting supportive care. Continue treatment. IV antibiotic. Wound care . Brandy Verdin MD
--- NOTE | 2017-09-17 09:04 | CP.PCM.PN ---
Subjective - Date & Time of Evaluation Date of Evaluation: 09/17/17 Time of Evaluation: 09:10 - Subjective Subjective: PGY2 Note for Dr. Verdin; all management as per Dr. Verdin Patient seen and examined at bedside this AM; denies any fevers/chills, DUQUE, CP, SOB, abdominal pain, N/V/D, dysuria/freq/urg or lower extremity swelling worse than typical. Objective - Vital Signs/Intake and Output Vital Signs (last 24 hours): Temp Pulse Resp BP Pulse Ox 97.8 F 54 L 20 152/60 H 98 09/17/17 08:14 09/17/17 08:14 09/17/17 08:14 09/17/17 08:14 09/17/17 08:14 Intake and Output: 09/17/17 09/17/17 06:59 18:59 Intake Total 2050 Output Total 850 Balance 1200 - Medications Medications: Current Medications Aspirin (Aspirin Chewable) 81 mg PO DAILY [facility] Last Admin: 09/16/17 11:13 Dose: 81 mg Clopidogrel Bisulfate (Plavix) 75 mg PO DAILY [facility] Last Admin: 09/16/17 11:13 Dose: 75 mg Enoxaparin Sodium (Lovenox) 40 mg SC DAILY [facility] Last Admin: 09/16/17 11:15 Dose: 40 mg Famotidine (Pepcid) 20 mg PO DAILY [facility] Last Admin: 09/16/17 11:13 Dose: 20 mg Furosemide (Lasix) 40 mg PO DAILY [facility] Last Admin: 09/16/17 11:16 Dose: 40 mg Guaifenesin (Robitussin) 100 mg PO Q6 [facility] Last Admin: 09/17/17 06:15 Dose: 100 mg Vancomycin/Sodium Chloride (Vancomycin 1 Gm/Ns 200 Ml) 1 gm in 200 mls @ 133 mls/hr IVPB Q12H [facility] PRN Reason: Protocol Stop: 09/18/17 18:01 Last Admin: 09/17/17 06:01 Dose: 133 mls/hr Piperacillin Sod/Tazobactam Sod (Zosyn 3.375 Gm Iv Premix) 3.375 gm in 50 mls @ 100 mls/hr IVPB Q6H [facility] PRN Reason: Protocol Last Admin: 09/17/17 08:35 Dose: 100 mls/hr Metoprolol Tartrate (Lopressor) 50 mg PO BID [facility] Last Admin: 09/16/17 17:38 Dose: 50 mg Mupirocin (Bactroban Ointment) 0 gm TOP DAILY [facility] Last Admin: 09/16/17 11:18 Dose: Not Given - Labs Labs: 09/17/17 06:34 09/17/17 06:34 PT 13.9 SECONDS (9.7-12.2) H 09/13/17 14:52 INR 1.3 09/13/17 14:52 APTT 39 SECONDS (21-34) H 09/13/17 14:52 - Constitutional Appears: Well, Non-toxic, Younger Than Stated Age - Head Exam Head Exam: ATRAUMATIC, NORMAL INSPECTION - Eye Exam Eye Exam: EOMI, PERRL - ENT Exam ENT Exam: Mucous Membranes Moist - Neck Exam Neck Exam: Full ROM. absent: Lymphadenopathy - Respiratory Exam Respiratory Exam: Clear to Ausculation Bilateral, NORMAL BREATHING PATTERN. absent: Rales, Rhonchi, Wheezes - Cardiovascular Exam Cardiovascular Exam: Diastolic murmur, REGULAR RHYTHM, +S1, +S2, Murmur. absent : JVD - GI/Abdominal Exam GI & Abdominal Exam: Soft, Normal Bowel Sounds. absent: Tenderness - Extremities Exam Extremities Exam: Calf Tenderness, Full ROM, Pedal Edema (wounds b/l lower extrem covered in krylex) - Back Exam Back Exam: NORMAL INSPECTION. absent: CVA tenderness (L), CVA tenderness (R) - Neurological Exam Neurological Exam: Alert, Awake, Oriented x3 - Psychiatric Exam Psychiatric exam: Normal Affect - Skin Skin Exam: Warm Assessment and Plan - Assessment and Plan (Free Text) Assessment: 82yo M admitted for lower extremity wounds/cellulitis and skin breakdown Lower extremity wounds/Cellulitis Afebrile, no leukocytosis Wound care consulted Zosyn 2.25gm IVPB Q6H (start 09/13) Vancomycin 1g IVPB Q12H (start 09/13) wound culture is growing proteus, enterococcus, and klebsiella venous doppler negative b/l for DVT Percocet prn for pain ID consulted, Dr. Allison help appreciated PVD/PAD Vascular Surgery Dr. Velasquez consulted Recommend compression stockings and local wound care History of Aortic Valve Replacement Continue Plavix and ASA Systolic Ejection murmur 4/6 present in all listening areas -echo from 2017 shows dilated cardiomyopathy with preserved EF CAD (coronary artery disease) Patient on ASA and Plavix at home, continue meds. HTN (hypertension) BP controlled Continue Lopressor 25 mg PO BID Hx of Anemia Hgb 9.3, stable will continue to monitor Prophylactic measure Pepcid lovenox 40u sc daily PT eval Pt will need visiting wound care nurse if he wants to go home, or care home as patient is unable to change dressings himself All medical managment as per Dr. Verdin
--- NOTE | 2017-09-17 10:09 | VASCLAB ---
PROCEDURE: Lower Extremity Venous Duplex Exam. HISTORY: Leg swelling PRIORS: None. TECHNIQUE: Bilateral common femoral, femoral, popliteal and posterior tibial, peroneal and great saphenous veins were evaluated. Flow was assessed with color Doppler, compressibility, assessment of phasic flow and augmentation response. Report prepared by VANNESA David, RVT FINDINGS: RIGHT: 1. Common Femoral Vein: 1.1. Compressibility - Fully compressible: Thrombus - None : Flow - Phasic: Augmentation -Normal: Reflux - None. 2. Femoral Vein: 2.1. Compressibility - Fully compressible: Thrombus - None : Flow - Phasic: Augmentation -Normal: Reflux - None. 3. Popliteal Vein: 3.1. Compressibility - Fully compressible: Thrombus - None : Flow - Phasic: Augmentation -Normal: Reflux - None. 4. Posterior Tibial Vein: 4.1. Compressibility - Fully compressible: Thrombus - None: Flow - Phasic: Augmentation -Normal: Reflux - None. 5. Peroneal Vein: 5.1. Compressibility - Fully compressible: Thrombus - None: Flow - Phasic: Augmentation -Normal: Reflux - None. 6. Great Saphenous Vein: 6.1. Compressibility - Fully compressible: Thrombus - None: Flow - Phasic: Augmentation - Normal: Reflux - None. LEFT: 1. Common Femoral Vein: 1.1. Compressibility - Fully compressible: Thrombus - None: Flow - Phasic: Augmentation -Normal: Reflux - None. 2. Femoral Vein: 2.1. Compressibility - Fully compressible: Thrombus - None: Flow - Phasic: Augmentation -Normal: Reflux - None. 3. Popliteal Vein: 3.1. Compressibility - Fully compressible: Thrombus - None : Flow - Phasic: Augmentation -Normal: Reflux - None. 4. Posterior Tibial Vein: 4.1. Compressibility - Fully compressible: Thrombus - None: Flow - Phasic: Augmentation -Normal: Reflux - None. 5. Peroneal Vein: 5.1. Compressibility - Fully compressible: Thrombus - None: Flow - Phasic: Augmentation -Normal: Reflux - None. 6. Great Saphenous Vein: 6.1. Compressibility - Fully compressible: Thrombus - None: Flow - Phasic: Augmentation - Normal: Reflux - None. OTHER FINDINGS: Right: None significant. Left: Anechoic irregular shaped non vascularlized mass noted behind the left knee. IMPRESSION: Right: No evidence of deep or superficial vein thrombosis of the right lower extremity. Normal valve function noted of the right side. Left: No evidence of deep or superficial vein thrombosis of the left lower extremity. Normal valve function noted of the left side.
[2017-09-17] MEDS: Saccharomyces Boulardi 250 mg Cap PO SCH ×2 (10:43→17:39)
[2017-09-17] MEDS: Enoxaparin 40 mg Syringe SC SCH (10:43)
--- NOTE | 2017-09-17 11:16 | CP.PCM.PN ---
Subjective - Date & Time of Evaluation Date of Evaluation: 09/17/17 Time of Evaluation: 08:00 - Subjective Subjective: iv rx reorddered afeb pain less Objective - Vital Signs/Intake and Output Vital Signs (last 24 hours): Temp Pulse Resp BP Pulse Ox 97.8 F 54 L 20 152/60 H 98 09/17/17 08:14 09/17/17 08:14 09/17/17 08:14 09/17/17 10:46 09/17/17 08:14 Intake and Output: 09/17/17 09/17/17 06:59 18:59 Intake Total 2050 Output Total 850 Balance 1200 - Medications Medications: Current Medications Aspirin (Aspirin Chewable) 81 mg PO DAILY [facility] Last Admin: 09/17/17 10:43 Dose: 81 mg Clopidogrel Bisulfate (Plavix) 75 mg PO DAILY [facility] Last Admin: 09/17/17 10:44 Dose: 75 mg Enoxaparin Sodium (Lovenox) 40 mg SC DAILY [facility] Last Admin: 09/17/17 10:43 Dose: 40 mg Famotidine (Pepcid) 20 mg PO DAILY [facility] Last Admin: 09/17/17 10:43 Dose: 20 mg Furosemide (Lasix) 40 mg PO DAILY [facility] Last Admin: 09/17/17 10:46 Dose: 40 mg Guaifenesin (Robitussin) 100 mg PO Q6 [facility] Last Admin: 09/17/17 11:12 Dose: Not Given Vancomycin/Sodium Chloride (Vancomycin 1 Gm/Ns 200 Ml) 1 gm in 200 mls @ 133 mls/hr IVPB Q12H [facility] PRN Reason: Protocol Stop: 09/18/17 18:01 Last Admin: 09/17/17 06:01 Dose: 133 mls/hr Piperacillin Sod/Tazobactam Sod (Zosyn 3.375 Gm Iv Premix) 3.375 gm in 50 mls @ 100 mls/hr IVPB Q6H [facility] PRN Reason: Protocol Last Admin: 09/17/17 08:35 Dose: 100 mls/hr Metoprolol Tartrate (Lopressor) 50 mg PO BID [facility] Last Admin: 09/17/17 10:50 Dose: 50 mg Mupirocin (Bactroban Ointment) 0 gm TOP DAILY [facility] Last Admin: 09/17/17 10:00 Dose: Not Given Saccharomyces Boulardii (Florastor) 250 mg PO BID [facility] Last Admin: 09/17/17 10:43 Dose: 250 mg - Labs Labs: 09/17/17 06:34 09/17/17 06:34 PT 13.9 SECONDS (9.7-12.2) H 09/13/17 14:52 INR 1.3 09/13/17 14:52 APTT 39 SECONDS (21-34) H 09/13/17 14:52 - Constitutional Appears: Non-toxic, Chronically Ill - Head Exam Head Exam: NORMOCEPHALIC - Eye Exam Eye Exam: absent: Scleral icterus - ENT Exam ENT Exam: Mucous Membranes Dry - Neck Exam Neck Exam: absent: Lymphadenopathy - Respiratory Exam Respiratory Exam: Decreased Breath Sounds - Cardiovascular Exam Cardiovascular Exam: REGULAR RHYTHM Assessment and Plan (1) Acute renal insufficiency Status: Acute (2) Ischemic ulcer of ankle Status: Acute (3) Anemia Status: Acute (4) CAD (coronary artery disease) Status: Acute (5) Cellulitis Status: Acute (6) Dehydration Status: Acute (7) HTN (hypertension) Status: Acute (8) Heart valve replaced Status: Acute
[2017-09-17 12:27] LABS: HEPATITIS B SURFACE AG Negative (NEGATIVE)
[2017-09-17 12:33] LABS: HEPATITIS A IGM NEGATIVE (NEGATIVE); HEPATITIS B CORE AB NEGATIVE (NEGATIVE)
[2017-09-17 12:45] LABS: HEPATITIS C ANTIBODY NEGATIVE (NEGATIVE)
--- NOTE | 2017-09-17 21:16 | CP.PCM.PN ---
Subjective - Date & Time of Evaluation Date of Evaluation: 09/17/17 Time of Evaluation: 15:00 - Subjective Subjective: Podiatry Progress Note - Dr. Conner 82 yea old male seen and evaluated this AM for bilateral lower extremity ulcerations. Patient reports decreased pain today, well-controlled. Dressings to bilateral LE remain clean/dry/intact. Denies N/V/F/D/C/SOB. Objective - Vital Signs/Intake and Output Vital Signs (last 24 hours): Temp Pulse Resp BP Pulse Ox 98.3 F 57 L 20 142/63 99 09/17/17 16:00 09/17/17 16:00 09/17/17 16:00 09/17/17 16:00 09/17/17 16:00 Intake and Output: 09/17/17 09/18/17 18:59 06:59 Intake Total 1100 Balance 1100 - Medications Medications: Current Medications Aspirin (Aspirin Chewable) 81 mg PO DAILY [facility] Last Admin: 09/17/17 10:43 Dose: 81 mg Clopidogrel Bisulfate (Plavix) 75 mg PO DAILY [facility] Last Admin: 09/17/17 10:44 Dose: 75 mg Enoxaparin Sodium (Lovenox) 40 mg SC DAILY [facility] Last Admin: 09/17/17 10:43 Dose: 40 mg Famotidine (Pepcid) 20 mg PO DAILY [facility] Last Admin: 09/17/17 10:43 Dose: 20 mg Furosemide (Lasix) 40 mg PO DAILY [facility] Last Admin: 09/17/17 10:46 Dose: 40 mg Guaifenesin (Robitussin) 100 mg PO Q6 [facility] Last Admin: 09/17/17 17:39 Dose: 100 mg Vancomycin/Sodium Chloride (Vancomycin 1 Gm/Ns 200 Ml) 1 gm in 200 mls @ 133 mls/hr IVPB Q12H [facility] PRN Reason: Protocol Stop: 09/18/17 18:01 Last Admin: 09/17/17 17:39 Dose: 133 mls/hr Piperacillin Sod/Tazobactam Sod (Zosyn 3.375 Gm Iv Premix) 3.375 gm in 50 mls @ 100 mls/hr IVPB Q6H [facility] PRN Reason: Protocol Last Admin: 09/17/17 14:43 Dose: 100 mls/hr Metoprolol Tartrate (Lopressor) 50 mg PO BID [facility] Last Admin: 09/17/17 17:39 Dose: 50 mg Mupirocin (Bactroban Ointment) 0 gm TOP DAILY [facility] Last Admin: 09/17/17 10:00 Dose: Not Given Saccharomyces Boulardii (Florastor) 250 mg PO BID [facility] Last Admin: 09/17/17 17:39 Dose: 250 mg - Labs Labs: 09/17/17 06:34 09/17/17 06:34 PT 13.9 SECONDS (9.7-12.2) H 09/13/17 14:52 INR 1.3 09/13/17 14:52 APTT 39 SECONDS (21-34) H 09/13/17 14:52 - Constitutional Appears: Well, Non-toxic, No Acute Distress - Extremities Exam Additional comments: VASC: DP pulses weakly palpable 1/4 b/l. PT pulses non-palpable b/l. CFT >3 seconds. Temperature gradient warm to cool. Bilateral LE edema noted. NEURO: Gross sensation diminished b/l. DERM: Full thickness ulcerations encompassing anterior/medial/lateral ankle joint b/l - noted to have a mixed fibrogranular base and erythematous rim; malodor present; serosanguinous drainage present; (-)probe to bone. Ulceration measuring 0.4 x 0.4 x 0.2 cm noted sub met head 1 right foot with hyperkeratotic rim. Stable Hyperkeratotis noted to distal tuft of left hallux. ORTHO: Pain on palpation noted to ulcerations. Muscle strength 5/5 for all dorsiflexors, plantarflexors, inverters, and everters b/l. Ankle joint ROM limited secondary to pain b/l. - Neurological Exam Neurological Exam: Alert, Awake, Oriented x3 - Psychiatric Exam Psychiatric exam: Normal Affect, Normal Mood Assessment and Plan - Assessment and Plan (Free Text) Assessment: 82M with venous stasis ulcerations to bilateral ankles 2/2 PVD Plan: Patient seen and evaluated with attending, Dr. Conner. Afebrile, absent leukocytosis. Venous duplex results: normal valvular function, negative for DVT. L leg WCx: proteus mirabilis, enterococcus faecalis, klebsiella pneumoniae Local wound care = bactroban, xeroform, DSD Continue abx per ID - vancomycin, zosyn Pain regimen per medicine Per chart, multiple episodes of improvement of wound in hospital however when discharged home patient is non-compliant and wounds worsen Podiatry will continue to follow. Pt to follow up in [facility] wound care center.
[2017-09-18] MEDS: guaiFENesin 100 mg/5 ml Syrup UD PO SCH ×5 (00:38→23:41)
[2017-09-18] MEDS: Sodium Chloride 0.9% 1,000 ML IV SCH ×2 (02:30→23:41)
[2017-09-18] MEDS: Piperacill/Tazo 3.375gm in Dex 3.375 GM/50 ML BAG IVPB SCH ×4 (03:15→20:46)
[2017-09-18] MEDS: Vancomycin 1 gm/NS 200 ml 1 GM/200 ML BAG IVPB SCH ×2 (05:20→17:31)
[2017-09-18 07:34] LABS: BASO # 0.1 K/uL (0.0-0.2); BASO % 0.9 % (0.0-2.0); EOS # 0.5 K/uL (0.0-0.7); HEMOGLOBIN 10.7 g/dL (12.0-18.0); LYMPH # 1.7 K/uL (1.0-4.3); LYMPH % 23.1 % (20.0-40.0); MEAN CELL VOLUME 73.8 fL (80.0-94.0); MEAN CORPUSCULAR HGB CONC 32.5 g/dL (33.0-37.0); MEAN PLATELET VOLUME 9.1 fL (7.2-11.7); MONO # 0.8 K/uL (0.0-0.8); MONO % 10.2 % (0.0-10.0); NEUT # 4.4 K/uL (1.8-7.0); NEUT % 58.8 % (50.0-75.0); RBC 4.45 Mil/uL (4.40-5.90); WHITE BLOOD COUNT 7.5 K/uL (4.8-10.8)
[2017-09-18 08:02] LABS: ALB/GLOB RATIO 0.7 (1.0-2.1); ALT/SGPT 50 U/L (21-72); AST/SGOT 67 U/L (17-59); BLOOD UREA NITROGEN 11 mg/dL (9-20); CALCIUM 8.9 mg/dl (8.6-10.4); GFR AFRICAN-AMERICAN > 60; GFR NON-AFRICAN AMERICAN > 60
--- NOTE | 2017-09-18 09:47 | CP.PCM.PN ---
Subjective - Date & Time of Evaluation Date of Evaluation: 09/18/17 Time of Evaluation: 09:47 - Subjective Subjective: PGY2 Note for Dr. Verdin; all management as per Dr. Verdin the patient is stable for d/c today; he has no complaints; denies fevers/chills , DUQUE, CP, SOB, abdominal pain, N/V/D, dysuria/freq/urg or lower extremity pain/ swelling. the patient should be non weight bearing for the time being until his lower extremity wounds heal. Objective - Vital Signs/Intake and Output Vital Signs (last 24 hours): Temp Pulse Resp BP Pulse Ox 98 F 54 L 20 156/64 H 97 09/18/17 00:00 09/18/17 06:00 09/18/17 06:00 09/18/17 06:00 09/18/17 06:00 Intake and Output: 09/18/17 09/18/17 06:59 18:59 Intake Total 2200 Output Total 1700 Balance 500 - Medications Medications: Current Medications Aspirin (Aspirin Chewable) 81 mg PO DAILY [facility] Last Admin: 09/17/17 10:43 Dose: 81 mg Clopidogrel Bisulfate (Plavix) 75 mg PO DAILY [facility] Last Admin: 09/17/17 10:44 Dose: 75 mg Enoxaparin Sodium (Lovenox) 40 mg SC DAILY [facility] Last Admin: 09/17/17 10:43 Dose: 40 mg Famotidine (Pepcid) 20 mg PO DAILY [facility] Last Admin: 09/17/17 10:43 Dose: 20 mg Furosemide (Lasix) 40 mg PO DAILY [facility] Last Admin: 09/17/17 10:46 Dose: 40 mg Guaifenesin (Robitussin) 100 mg PO Q6 [facility] Last Admin: 09/18/17 05:20 Dose: 100 mg Vancomycin/Sodium Chloride (Vancomycin 1 Gm/Ns 200 Ml) 1 gm in 200 mls @ 133 mls/hr IVPB Q12H [facility] PRN Reason: Protocol Stop: 09/18/17 18:01 Last Admin: 09/18/17 05:20 Dose: 133 mls/hr Piperacillin Sod/Tazobactam Sod (Zosyn 3.375 Gm Iv Premix) 3.375 gm in 50 mls @ 100 mls/hr IVPB Q6H [facility] PRN Reason: Protocol Last Admin: 09/18/17 08:04 Dose: 100 mls/hr Metoprolol Tartrate (Lopressor) 50 mg PO BID [facility] Last Admin: 09/17/17 17:39 Dose: 50 mg Mupirocin (Bactroban Ointment) 0 gm TOP DAILY [facility] Last Admin: 09/17/17 10:00 Dose: Not Given Oxycodone/Acetaminophen (Percocet 5/325 Mg Tab) 1 tab PO Q4H PRN PRN Reason: Pain, severe (8-10) Stop: 09/21/17 09:04 Saccharomyces Boulardii (Florastor) 250 mg PO BID [facility] Last Admin: 09/17/17 17:39 Dose: 250 mg - Labs Labs: 09/18/17 07:16 09/18/17 07:16 PT 13.9 SECONDS (9.7-12.2) H 09/13/17 14:52 INR 1.3 09/13/17 14:52 APTT 39 SECONDS (21-34) H 09/13/17 14:52 Assessment and Plan - Assessment and Plan (Free Text) Assessment: Appears: Well, Non-toxic, Younger Than Stated Age - Head Exam Head Exam: ATRAUMATIC, NORMAL INSPECTION - Eye Exam Eye Exam: EOMI, PERRL - ENT Exam ENT Exam: Mucous Membranes Moist - Neck Exam Neck Exam: Full ROM. absent: Lymphadenopathy - Respiratory Exam Respiratory Exam: Clear to Ausculation Bilateral, NORMAL BREATHING PATTERN. absent: Rales, Rhonchi, Wheezes - Cardiovascular Exam Cardiovascular Exam: Diastolic murmur, REGULAR RHYTHM, +S1, +S2, Murmur. absent : JVD - GI/Abdominal Exam GI & Abdominal Exam: Soft, Normal Bowel Sounds. absent: Tenderness - Extremities Exam Extremities Exam: Calf Tenderness, Full ROM, Pedal Edema (wounds b/l lower extrem covered in krylex) - Back Exam Back Exam: NORMAL INSPECTION. absent: CVA tenderness (L), CVA tenderness (R) - Neurological Exam Neurological Exam: Alert, Awake, Oriented x3 - Psychiatric Exam Psychiatric exam: Normal Affect - Skin Skin Exam: Warm Assessment and Plan - Assessment and Plan (Free Text) Assessment: 82yo M admitted for lower extremity wounds/cellulitis and skin breakdown Lower extremity wounds/Cellulitis Afebrile, no leukocytosis Wound care consulted Zosyn 2.25gm IVPB Q6H (start 09/13) Vancomycin 1g IVPB Q12H (start 09/13) wound culture is growing proteus, enterococcus, and klebsiella venous doppler negative b/l for DVT Percocet prn for pain ID consulted, Dr. Allison help appreciated PVD/PAD Vascular Surgery Dr. 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 HTN (hypertension) BP controlled Continue Lopressor 25 mg PO BID Hx of Anemia Hgb 9.3, stable will continue to monitor Prophylactic measure Pepcid lovenox 40u sc daily PT eval Pt will need visiting wound care nurse if he wants to go home, or snf as patient is unable to change dressings himself All medical managment as per Dr. Verdin The patient is stable for d/c the patient will need a visiting nurse, daily, for wound care, until his wounds are cleaned he will need to follow with podiatry weekly for wound checks as well, as well as the wound care clinic the patient should be non-weight bearing for the time being and will be prescribed a wheelchair until his wounds are healed he should take bactrim, BID, for 14 days, for his infection as well as the probiotic prescribed to prevent diarrhea the patient should continue with all of his other medications as prescribed and follow up with his PCP in one week
[2017-09-18] MEDS: Saccharomyces Boulardi 250 mg Cap PO SCH ×2 (10:37→19:00)
[2017-09-18] MEDS: Enoxaparin 40 mg Syringe SC SCH (10:38)
[2017-09-18] MEDS: Oxycodone/Acetaminophen 5/325 mg Tab PO PRN (10:41)
--- NOTE | 2017-09-18 11:20 | CP.PCM.PN ---
Subjective - Date & Time of Evaluation Date of Evaluation: 09/18/17 Time of Evaluation: 07:00 - Subjective Subjective: seen on rounds no fever wounds less drainage for d/c on PO Objective - Vital Signs/Intake and Output Vital Signs (last 24 hours): Temp Pulse Resp BP Pulse Ox 98 F 54 L 20 150/70 97 09/18/17 00:00 09/18/17 06:00 09/18/17 06:00 09/18/17 10:37 09/18/17 06:00 Intake and Output: 09/18/17 09/18/17 06:59 18:59 Intake Total 2200 Output Total 1700 Balance 500 - Medications Medications: Current Medications Aspirin (Aspirin Chewable) 81 mg PO DAILY [facility] Last Admin: 09/18/17 10:38 Dose: 81 mg Clopidogrel Bisulfate (Plavix) 75 mg PO DAILY [facility] Last Admin: 09/18/17 10:38 Dose: 75 mg Enoxaparin Sodium (Lovenox) 40 mg SC DAILY [facility] Last Admin: 09/18/17 10:38 Dose: Not Given Famotidine (Pepcid) 20 mg PO DAILY [facility] Last Admin: 09/18/17 10:37 Dose: 20 mg Furosemide (Lasix) 40 mg PO DAILY [facility] Last Admin: 09/18/17 10:37 Dose: 40 mg Guaifenesin (Robitussin) 100 mg PO Q6 [facility] Last Admin: 09/18/17 05:20 Dose: 100 mg Vancomycin/Sodium Chloride (Vancomycin 1 Gm/Ns 200 Ml) 1 gm in 200 mls @ 133 mls/hr IVPB Q12H [facility] PRN Reason: Protocol Stop: 09/18/17 18:01 Last Admin: 09/18/17 05:20 Dose: 133 mls/hr Piperacillin Sod/Tazobactam Sod (Zosyn 3.375 Gm Iv Premix) 3.375 gm in 50 mls @ 100 mls/hr IVPB Q6H [facility] PRN Reason: Protocol Last Admin: 09/18/17 08:04 Dose: 100 mls/hr Metoprolol Tartrate (Lopressor) 50 mg PO BID [facility] Last Admin: 09/18/17 10:37 Dose: 50 mg Mupirocin (Bactroban Ointment) 0 gm TOP DAILY [facility] Last Admin: 09/18/17 10:42 Dose: Not Given Oxycodone/Acetaminophen (Percocet 5/325 Mg Tab) 1 tab PO Q4H PRN PRN Reason: Pain, severe (8-10) Stop: 09/21/17 09:04 Last Admin: 09/18/17 10:41 Dose: 1 tab Saccharomyces Boulardii (Florastor) 250 mg PO BID [facility] Last Admin: 09/18/17 10:37 Dose: 250 mg - Labs Labs: 09/18/17 07:16 09/18/17 07:16 PT 13.9 SECONDS (9.7-12.2) H 09/13/17 14:52 INR 1.3 09/13/17 14:52 APTT 39 SECONDS (21-34) H 09/13/17 14:52 - Constitutional Appears: Non-toxic, Chronically Ill - Head Exam Head Exam: NORMOCEPHALIC - Eye Exam Eye Exam: PERRL - ENT Exam ENT Exam: Mucous Membranes Dry - Neck Exam Neck Exam: absent: Lymphadenopathy - Respiratory Exam Respiratory Exam: Decreased Breath Sounds - Cardiovascular Exam Cardiovascular Exam: REGULAR RHYTHM - GI/Abdominal Exam GI & Abdominal Exam: Distended - Rectal Exam Rectal Exam: Deferred Assessment and Plan (1) Acute renal insufficiency Status: Acute (2) Ischemic ulcer of ankle Status: Acute (3) Anemia Status: Acute (4) CAD (coronary artery disease) Status: Acute (5) Cellulitis Status: Acute (6) Dehydration Status: Acute (7) HTN (hypertension) Status: Acute (8) Heart valve replaced Status: Acute
--- NOTE | 2017-09-18 15:11 | CP.PCM.PN ---
Subjective - Date & Time of Evaluation Date of Evaluation: 09/18/17 Time of Evaluation: 08:40 - Subjective Subjective: Podiatry Progress Note - Dr. Conner 82 year old male seen and evaluated this AM for bilateral lower extremity ulcerations. Patient reports decreased pain today, well-controlled. Dressings to bilateral LE remain clean/dry/intact. Denies N/V/F/D/C/SOB. Objective - Vital Signs/Intake and Output Vital Signs (last 24 hours): Temp Pulse Resp BP Pulse Ox 98 F 54 L 20 150/70 97 09/18/17 00:00 09/18/17 06:00 09/18/17 06:00 09/18/17 10:37 09/18/17 06:00 Intake and Output: 09/18/17 09/18/17 06:59 18:59 Intake Total 2200 600 Output Total 1700 Balance 500 600 - Medications Medications: Current Medications Aspirin (Aspirin Chewable) 81 mg PO DAILY [facility] Last Admin: 09/18/17 10:38 Dose: 81 mg Clopidogrel Bisulfate (Plavix) 75 mg PO DAILY [facility] Last Admin: 09/18/17 10:38 Dose: 75 mg Enoxaparin Sodium (Lovenox) 40 mg SC DAILY [facility] Last Admin: 09/18/17 10:38 Dose: Not Given Famotidine (Pepcid) 20 mg PO DAILY [facility] Last Admin: 09/18/17 10:37 Dose: 20 mg Furosemide (Lasix) 40 mg PO DAILY [facility] Last Admin: 09/18/17 10:37 Dose: 40 mg Guaifenesin (Robitussin) 100 mg PO Q6 [facility] Last Admin: 09/18/17 12:33 Dose: 100 mg Vancomycin/Sodium Chloride (Vancomycin 1 Gm/Ns 200 Ml) 1 gm in 200 mls @ 133 mls/hr IVPB Q12H [facility] PRN Reason: Protocol Stop: 09/18/17 18:01 Last Admin: 09/18/17 05:20 Dose: 133 mls/hr Piperacillin Sod/Tazobactam Sod (Zosyn 3.375 Gm Iv Premix) 3.375 gm in 50 mls @ 100 mls/hr IVPB Q6H [facility] PRN Reason: Protocol Last Admin: 09/18/17 14:22 Dose: 100 mls/hr Metoprolol Tartrate (Lopressor) 50 mg PO BID [facility] Last Admin: 09/18/17 10:37 Dose: 50 mg Mupirocin (Bactroban Ointment) 0 gm TOP DAILY [facility] Last Admin: 09/18/17 10:42 Dose: Not Given Oxycodone/Acetaminophen (Percocet 5/325 Mg Tab) 1 tab PO Q4H PRN PRN Reason: Pain, severe (8-10) Stop: 09/21/17 09:04 Last Admin: 09/18/17 10:41 Dose: 1 tab Saccharomyces Boulardii (Florastor) 250 mg PO BID [facility] Last Admin: 09/18/17 10:37 Dose: 250 mg - Labs Labs: 09/18/17 07:16 09/18/17 07:16 PT 13.9 SECONDS (9.7-12.2) H 09/13/17 14:52 INR 1.3 09/13/17 14:52 APTT 39 SECONDS (21-34) H 09/13/17 14:52 - Constitutional Appears: Well, Non-toxic, No Acute Distress - Extremities Exam Additional comments: VASC: DP pulses weakly palpable 1/4 b/l. PT pulses non-palpable b/l. CFT >3 seconds. Temperature gradient warm to cool. Bilateral LE edema noted. NEURO: Gross sensation diminished b/l. DERM: Full thickness ulcerations encompassing anterior/medial/lateral ankle joint b/l - noted to have a mixed fibrogranular base and erythematous rim; malodor present; serosanguinous drainage present; (-)probe to bone. Ulceration measuring 0.4 x 0.4 x 0.2 cm noted sub met head 1 right foot with hyperkeratotic rim. Stable Hyperkeratotis noted to distal tuft of left hallux. ORTHO: Pain on palpation noted to ulcerations. Muscle strength 5/5 for all dorsiflexors, plantarflexors, inverters, and everters b/l. Ankle joint ROM limited secondary to pain b/l. - Neurological Exam Neurological Exam: Alert, Awake, Oriented x3 Assessment and Plan - Assessment and Plan (Free Text) Assessment: 82 year old male with venous stasis ulcerations to bilateral ankles 2/2 PVD Plan: Patient seen and evaluated. Discussed with attending, Dr. Conner. Afebrile, absent leukocytosis. L leg WCx: proteus mirabilis, enterococcus faecalis, klebsiella pneumoniae Local wound care = bactroban, xeroform, DSD Continue abx per ID Pain regimen per medicine Continue local wound care. Dressing changed with Bactroban, Xeroform, DSD bilaterally. Pt is stable form podiatry standpoint for discharge. Podiatry will continue to follow. Pt to follow up in [facility] wound care center.
[2017-09-19] MEDS: guaiFENesin 100 mg/5 ml Syrup UD PO SCH ×3 (05:16→17:30)
[2017-09-19 08:24] LABS: BASO # 0.1 K/uL (0.0-0.2); BASO % 0.7 % (0.0-2.0); EOS # 0.4 K/uL (0.0-0.7); EOS % 5.4 % (0.0-4.0); HEMOGLOBIN 10.1 g/dL (12.0-18.0); LYMPH # 1.8 K/uL (1.0-4.3); LYMPH % 23.3 % (20.0-40.0); MEAN CELL VOLUME 74.1 fL (80.0-94.0); MEAN CORPUSCULAR HEMOGLOBIN 23.6 pg (27.0-31.0); MEAN CORPUSCULAR HGB CONC 31.9 g/dL (33.0-37.0); MEAN PLATELET VOLUME 8.9 fL (7.2-11.7); MONO # 0.6 K/uL (0.0-0.8); MONO % 7.9 % (0.0-10.0); NEUT # 4.9 K/uL (1.8-7.0); NEUT % 62.7 % (50.0-75.0); RBC 4.28 Mil/uL (4.40-5.90); RED CELL DISTRIBUTION WIDTH 24.5 % (11.5-14.5); WHITE BLOOD COUNT 7.8 K/uL (4.8-10.8)
[2017-09-19 08:37] LABS: ALB/GLOB RATIO 0.8 (1.0-2.1); ALBUMIN 3.2 g/dL (3.5-5.0); ALT/SGPT 36 U/L (21-72); AST/SGOT 52 U/L (17-59); BLOOD UREA NITROGEN 15 mg/dL (9-20); CALCIUM 9.1 mg/dl (8.6-10.4); GFR AFRICAN-AMERICAN > 60; GFR NON-AFRICAN AMERICAN > 60
[2017-09-19] MEDS: Saccharomyces Boulardi 250 mg Cap PO SCH ×2 (09:15→17:30)
[2017-09-19] MEDS: Enoxaparin 40 mg Syringe SC SCH (09:16)
--- NOTE | 2017-09-19 10:20 | CP.PCM.PN ---
Subjective - Date & Time of Evaluation Date of Evaluation: 09/19/17 Time of Evaluation: 10:15 - Subjective Subjective: Podiatry Progress Note - Dr. Conner 82 year old male seen and evaluated this morning at bedside for bilateral lower extremity ulcerations. Patient reports mild pain to the lower extremities today but says pain meds help. Dressings to bilateral LE remain clean/dry/intact. Has no other pedal complaints at present. Denies N/V/F/D/C/SOB. Objective - Vital Signs/Intake and Output Vital Signs (last 24 hours): Temp Pulse Resp BP Pulse Ox 98.1 F 62 20 150/70 96 09/19/17 08:12 09/19/17 08:12 09/19/17 08:12 09/19/17 09:15 09/19/17 08:12 - Medications Medications: Current Medications Aspirin (Aspirin Chewable) 81 mg PO DAILY [facility] Last Admin: 09/19/17 09:15 Dose: 81 mg Clopidogrel Bisulfate (Plavix) 75 mg PO DAILY [facility] Last Admin: 09/19/17 09:15 Dose: 75 mg Enoxaparin Sodium (Lovenox) 40 mg SC DAILY [facility] Last Admin: 09/19/17 09:16 Dose: 40 mg Famotidine (Pepcid) 20 mg PO DAILY [facility] Last Admin: 09/19/17 09:15 Dose: 20 mg Furosemide (Lasix) 40 mg PO DAILY [facility] Last Admin: 09/19/17 09:15 Dose: 40 mg Guaifenesin (Robitussin) 100 mg PO Q6 [facility] Last Admin: 09/19/17 05:16 Dose: 100 mg Metoprolol Tartrate (Lopressor) 50 mg PO BID [facility] Last Admin: 09/19/17 09:16 Dose: 50 mg Mupirocin (Bactroban Ointment) 0 gm TOP DAILY [facility] Last Admin: 09/19/17 09:18 Dose: Not Given Oxycodone/Acetaminophen (Percocet 5/325 Mg Tab) 1 tab PO Q4H PRN PRN Reason: Pain, severe (8-10) Stop: 09/21/17 09:04 Last Admin: 09/18/17 10:41 Dose: 1 tab Saccharomyces Boulardii (Florastor) 250 mg PO BID [facility] Last Admin: 09/19/17 09:15 Dose: 250 mg - Labs Labs: 09/19/17 08:15 09/19/17 08:15 PT 13.9 SECONDS (9.7-12.2) H 09/13/17 14:52 INR 1.3 09/13/17 14:52 APTT 39 SECONDS (21-34) H 09/13/17 14:52 - Constitutional Appears: Well, Non-toxic, No Acute Distress - Extremities Exam Additional comments: VASC: DP pulses weakly palpable 1/4 B/L. PT pulses non-palpable B/L. CFT >3 seconds. Temperature gradient warm to cool. Bilateral LE edema noted. NEURO: Gross sensation diminished B/L DERM: Full thickness ulcerations spanning circumferentially in width around ankle joint and measuring approx 10cm from proximal to distal length B/L - noted to have a mixed fibrogranular base and erythematous rim; mild malodor present; minimal serosanguinous drainage present, R>L. Negative probe to bone B/ L. Ulceration measuring 0.4 x 0.4 x 0.2 cm noted sub met head 1 right foot with hyperkeratotic rim. Additional superficial ulceration noted to dorsolateral forefoot measuring approx 1cm x 1cm x 0.1cm with mixed fibrogranular base and stable wound borders. Stable hyperkeratosis noted to distal tuft of left hallux with minimal dry hematoma formation noted. ORTHO: Pain on palpation noted to ulcerations. Muscle strength 5/5 for all dorsiflexors, plantarflexors, inverters, and everters B/L. Ankle joint ROM limited secondary to pain B/L - Neurological Exam Neurological Exam: Alert, Awake, Oriented x3 - Psychiatric Exam Psychiatric exam: Normal Affect, Normal Mood Assessment and Plan - Assessment and Plan (Free Text) Assessment: 82 year old male with venous stasis ulcerations to bilateral ankles 2/2 PVD Plan: Patient seen and evaluated Discussed with attending, Dr. Dalila Best leg WCx: proteus mirabilis, enterococcus faecalis, klebsiella pneumoniae Continue abx per ID Pain regimen per medicine Podiatry to continue local wound care Dressing changed with Bactroban, Xeroform, DSD B/L Pt is stable from podiatry standpoint for discharge. Podiatry will continue to follow while pt remains in house Pt to follow up in [facility] wound care center with Dr. Srivastava on Sunday following discharge
--- NOTE | 2017-09-19 10:45 | CP.PCM.PN ---
Subjective - Date & Time of Evaluation Date of Evaluation: 09/19/17 Time of Evaluation: 10:42 - Subjective Subjective: Progress Note for Dr. Verdin's Service Pt seen and examined at bedside. He has been cleared for D/C since yesterday and is awaiting placement. He denies fevers/chills, DUQUE, CP, SOB, abdominal pain , N/V/D, dysuria/freq/urg or lower extremity pain/swelling. He does admit to intermittent pain in the lower extremities but states that the medication controls his discomfort. No acute events overnight. Objective - Vital Signs/Intake and Output Vital Signs (last 24 hours): Temp Pulse Resp BP Pulse Ox 98.1 F 62 20 150/70 96 09/19/17 08:12 09/19/17 08:12 09/19/17 08:12 09/19/17 09:15 09/19/17 08:12 - Medications Medications: Current Medications Aspirin (Aspirin Chewable) 81 mg PO DAILY [facility] Last Admin: 09/19/17 09:15 Dose: 81 mg Clopidogrel Bisulfate (Plavix) 75 mg PO DAILY [facility] Last Admin: 09/19/17 09:15 Dose: 75 mg Enoxaparin Sodium (Lovenox) 40 mg SC DAILY [facility] Last Admin: 09/19/17 09:16 Dose: 40 mg Famotidine (Pepcid) 20 mg PO DAILY [facility] Last Admin: 09/19/17 09:15 Dose: 20 mg Furosemide (Lasix) 40 mg PO DAILY [facility] Last Admin: 09/19/17 09:15 Dose: 40 mg Guaifenesin (Robitussin) 100 mg PO Q6 [facility] Last Admin: 09/19/17 05:16 Dose: 100 mg Metoprolol Tartrate (Lopressor) 50 mg PO BID [facility] Last Admin: 09/19/17 09:16 Dose: 50 mg Mupirocin (Bactroban Ointment) 0 gm TOP DAILY [facility] Last Admin: 09/19/17 09:18 Dose: Not Given Oxycodone/Acetaminophen (Percocet 5/325 Mg Tab) 1 tab PO Q4H PRN PRN Reason: Pain, severe (8-10) Stop: 09/21/17 09:04 Last Admin: 09/18/17 10:41 Dose: 1 tab Saccharomyces Boulardii (Florastor) 250 mg PO BID [facility] Last Admin: 09/19/17 09:15 Dose: 250 mg - Labs Labs: 09/19/17 08:15 09/19/17 08:15 PT 13.9 SECONDS (9.7-12.2) H 09/13/17 14:52 INR 1.3 09/13/17 14:52 APTT 39 SECONDS (21-34) H 09/13/17 14:52 - Constitutional Appears: Well, No Acute Distress - Head Exam Head Exam: ATRAUMATIC, NORMOCEPHALIC - Eye Exam Eye Exam: EOMI, Normal appearance - ENT Exam ENT Exam: Mucous Membranes Moist - Respiratory Exam Respiratory Exam: Clear to Ausculation Bilateral, NORMAL BREATHING PATTERN - Cardiovascular Exam Cardiovascular Exam: REGULAR RHYTHM - GI/Abdominal Exam GI & Abdominal Exam: Soft. absent: Tenderness - Extremities Exam Additional comments: wound dressings C/D/I - Neurological Exam Neurological Exam: Alert, Awake, Oriented x3 - Psychiatric Exam Psychiatric exam: Normal Affect, Normal Mood - Skin Skin Exam: Dry, Warm Assessment and Plan - Assessment and Plan (Free Text) Plan: Lower extremity wounds/Cellulitis Afebrile, no leukocytosis Wound care consulted Zosyn 2.25gm IVPB Q6H (start 09/13) Vancomycin 1g IVPB Q12H (start 09/13) wound culture is growing proteus, enterococcus, and klebsiella venous doppler negative b/l for DVT Percocet prn for pain ID consulted, Dr. Allison help appreciated Podiatry consulted- Dr. Yañez- help appreciated PVD/PAD Vascular Surgery Dr. 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 HTN (hypertension) BP controlled Continue Lopressor 25 mg PO BID Hx of Anemia Hgb 10.1, stable will continue to monitor Prophylactic measure Pepcid lovenox 40u sc daily PT eval completed The patient is stable for d/c the patient will need a visiting nurse, daily, for wound care, until his wounds are cleaned he will need to follow with podiatry weekly for wound checks as well, as well as the wound care clinic the patient should be non-weight bearing for the time being and will be prescribed a wheelchair until his wounds are healed he should take bactrim, BID, for 14 days, for his infection as well as the probiotic prescribed to prevent diarrhea the patient should continue with all of his other medications as prescribed and follow up with his PCP in one week Case discussed with Dr. Verdin All medical managment as per Dr. Verdin
[2017-09-20] MEDS: guaiFENesin 100 mg/5 ml Syrup UD PO SCH ×5 (00:10→23:50)
[2017-09-20 07:24] LABS: BASO # 0.1 K/uL (0.0-0.2); BASO % 1.2 % (0.0-2.0); EOS # 0.4 K/uL (0.0-0.7); EOS % 5.2 % (0.0-4.0); HEMOGLOBIN 10.2 g/dL (12.0-18.0); LYMPH # 1.5 K/uL (1.0-4.3); LYMPH % 20.9 % (20.0-40.0); MEAN CELL VOLUME 73.4 fL (80.0-94.0); MEAN CORPUSCULAR HEMOGLOBIN 23.5 pg (27.0-31.0); MEAN PLATELET VOLUME 9.1 fL (7.2-11.7); MONO # 0.7 K/uL (0.0-0.8); MONO % 10.1 % (0.0-10.0); NEUT # 4.5 K/uL (1.8-7.0); NEUT % 62.6 % (50.0-75.0); NRBC % 0.1 % (0.0-2.0); RBC 4.34 Mil/uL (4.40-5.90); RED CELL DISTRIBUTION WIDTH 24.3 % (11.5-14.5); WHITE BLOOD COUNT 7.1 K/uL (4.8-10.8)
[2017-09-20 07:39] LABS: ALB/GLOB RATIO 0.7 (1.0-2.1); ALBUMIN 2.9 g/dL (3.5-5.0); ALT/SGPT 33 U/L (21-72); AST/SGOT 34 U/L (17-59); BLOOD UREA NITROGEN 19 mg/dL (9-20); CALCIUM 8.8 mg/dl (8.6-10.4); GFR AFRICAN-AMERICAN > 60; GFR NON-AFRICAN AMERICAN > 60
[2017-09-20] MEDS: Saccharomyces Boulardi 250 mg Cap PO SCH ×2 (09:07→17:43)
[2017-09-20] MEDS: Enoxaparin 40 mg Syringe SC SCH (09:07)
--- NOTE | 2017-09-20 09:51 | CP.PCM.PN ---
Subjective - Date & Time of Evaluation Date of Evaluation: 09/20/17 Time of Evaluation: 09:48 - Subjective Subjective: Progress Note for Dr. Verdin's Service Patient seen and examined at bedside this morning. Pt is cleared for discharge. He is awaiting placement. He denies fevers/chills, DUQUE, CP, SOB, abdominal pain, N/V/D, dysuria/freq/urg or lower extremity pain/swelling. He does admit to intermittent pain in the lower extremities but states that the medication controls his discomfort. No acute events overnight. His is also inpatient currently at [facility]. Pt would like to go to [facility] rehab with his as she is unable to care for herself without him. Objective - Vital Signs/Intake and Output Vital Signs (last 24 hours): Temp Pulse Resp BP Pulse Ox 98.2 F 58 L 20 165/74 H 96 09/20/17 08:00 09/20/17 08:00 09/20/17 08:00 09/20/17 09:08 09/20/17 08:00 Intake and Output: 09/20/17 09/20/17 06:59 18:59 Intake Total 300 Balance 300 - Medications Medications: Current Medications Aspirin (Aspirin Chewable) 81 mg PO DAILY [facility] Last Admin: 09/20/17 09:08 Dose: 81 mg Clopidogrel Bisulfate (Plavix) 75 mg PO DAILY [facility] Last Admin: 09/20/17 09:07 Dose: 75 mg Enoxaparin Sodium (Lovenox) 40 mg SC DAILY [facility] Last Admin: 09/20/17 09:07 Dose: Not Given Famotidine (Pepcid) 20 mg PO DAILY [facility] Last Admin: 09/20/17 09:08 Dose: 20 mg Furosemide (Lasix) 40 mg PO DAILY [facility] Last Admin: 09/20/17 09:08 Dose: 40 mg Guaifenesin (Robitussin) 100 mg PO Q6 [facility] Last Admin: 09/20/17 05:25 Dose: 100 mg Metoprolol Tartrate (Lopressor) 50 mg PO BID [facility] Last Admin: 09/20/17 09:07 Dose: 50 mg Mupirocin (Bactroban Ointment) 0 gm TOP DAILY [facility] Last Admin: 09/19/17 09:18 Dose: Not Given Oxycodone/Acetaminophen (Percocet 5/325 Mg Tab) 1 tab PO Q4H PRN PRN Reason: Pain, severe (8-10) Stop: 09/21/17 09:04 Last Admin: 09/18/17 10:41 Dose: 1 tab Saccharomyces Boulardii (Florastor) 250 mg PO BID [facility] Last Admin: 09/20/17 09:07 Dose: 250 mg - Labs Labs: 09/20/17 07:13 09/20/17 07:13 PT 13.9 SECONDS (9.7-12.2) H 09/13/17 14:52 INR 1.3 09/13/17 14:52 APTT 39 SECONDS (21-34) H 09/13/17 14:52 - Head Exam Head Exam: ATRAUMATIC, NORMOCEPHALIC - Eye Exam Eye Exam: EOMI, Normal appearance - ENT Exam ENT Exam: Mucous Membranes Moist - Respiratory Exam Respiratory Exam: Clear to Ausculation Bilateral, NORMAL BREATHING PATTERN - Cardiovascular Exam Cardiovascular Exam: REGULAR RHYTHM, +S1, +S2 - GI/Abdominal Exam GI & Abdominal Exam: Soft. absent: Tenderness - Extremities Exam Additional comments: wound dressings C/D/I - Neurological Exam Neurological Exam: Alert, Awake, Oriented x3 - Psychiatric Exam Psychiatric exam: Normal Affect, Normal Mood - Skin Skin Exam: Dry, Warm Assessment and Plan - Assessment and Plan (Free Text) Plan: Lower extremity wounds/Cellulitis Afebrile, no leukocytosis Wound care consulted Zosyn 2.25gm IVPB Q6H (start 09/13) Vancomycin 1g IVPB Q12H (start 09/13) wound culture is growing proteus, enterococcus, and klebsiella venous doppler negative b/l for DVT Percocet prn for pain ID consulted, Dr. Allison help appreciated Podiatry consulted- Dr. Yañez- help appreciated PVD/PAD Vascular Surgery Dr. 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 HTN (hypertension) BP controlled Continue Lopressor 25 mg PO BID Hx of Anemia Hgb 10.1, stable will continue to monitor Prophylactic measure Pepcid lovenox 40u sc daily PT eval completed The patient is stable for d/c the patient will need a visiting nurse, daily, for wound care, until his wounds are cleaned he will need to follow with podiatry weekly for wound checks as well, as well as the wound care clinic the patient should be non-weight bearing for the time being and will be prescribed a wheelchair until his wounds are healed he should take bactrim, BID, for 14 days, for his infection as well as the probiotic prescribed to prevent diarrhea the patient should continue with all of his other medications as prescribed and follow up with his PCP in one week Case discussed with Dr. Verdin All medical managment as per Dr. Ayala
--- NOTE | 2017-09-20 12:04 | CP.PCM.PN ---
Subjective - Date & Time of Evaluation Date of Evaluation: 09/20/17 Time of Evaluation: 10:00 - Subjective Subjective: Podiatry Progress Note - Dr. Conner 82 year old male seen this morning at bedside for bilateral lower extremity ulcerations. Pt is doing well and is awaiting subacute rehab placement. Pt has no edison pedal complaints. Dressings to bilateral LE remain clean/dry/intact. Has no other pedal complaints at present. Denies N/V/F/D/C/SOB. Objective - Vital Signs/Intake and Output Vital Signs (last 24 hours): Temp Pulse Resp BP Pulse Ox 98.2 F 58 L 20 165/74 H 96 09/20/17 08:00 09/20/17 08:00 09/20/17 08:00 09/20/17 09:08 09/20/17 08:00 Intake and Output: 09/20/17 09/20/17 06:59 18:59 Intake Total 300 Balance 300 - Medications Medications: Current Medications Aspirin (Aspirin Chewable) 81 mg PO DAILY [facility] Last Admin: 09/20/17 09:08 Dose: 81 mg Clopidogrel Bisulfate (Plavix) 75 mg PO DAILY [facility] Last Admin: 09/20/17 09:07 Dose: 75 mg Enoxaparin Sodium (Lovenox) 40 mg SC DAILY [facility] Last Admin: 09/20/17 09:07 Dose: Not Given Famotidine (Pepcid) 20 mg PO DAILY [facility] Last Admin: 09/20/17 09:08 Dose: 20 mg Furosemide (Lasix) 40 mg PO DAILY [facility] Last Admin: 09/20/17 09:08 Dose: 40 mg Guaifenesin (Robitussin) 100 mg PO Q6 [facility] Last Admin: 09/20/17 05:25 Dose: 100 mg Metoprolol Tartrate (Lopressor) 50 mg PO BID [facility] Last Admin: 09/20/17 09:07 Dose: 50 mg Mupirocin (Bactroban Ointment) 0 gm TOP DAILY [facility] Last Admin: 09/19/17 09:18 Dose: Not Given Oxycodone/Acetaminophen (Percocet 5/325 Mg Tab) 1 tab PO Q4H PRN PRN Reason: Pain, severe (8-10) Stop: 09/21/17 09:04 Last Admin: 09/18/17 10:41 Dose: 1 tab Saccharomyces Boulardii (Florastor) 250 mg PO BID [facility] Last Admin: 09/20/17 09:07 Dose: 250 mg - Labs Labs: 09/20/17 07:13 09/20/17 07:13 PT 13.9 SECONDS (9.7-12.2) H 09/13/17 14:52 INR 1.3 09/13/17 14:52 APTT 39 SECONDS (21-34) H 09/13/17 14:52 - Constitutional Appears: Well, Non-toxic, No Acute Distress - Extremities Exam Additional comments: VASC: DP pulses weakly palpable 1/4 B/L. PT pulses non-palpable B/L. CFT >3 seconds. Temperature gradient warm to cool. Bilateral LE edema noted. NEURO: Gross sensation diminished B/L DERM: Full thickness ulcerations spanning circumferentially in width around ankle joint and measuring approx 10cm from proximal to distal length B/L - noted to have a mixed fibrogranular base and erythematous rim; mild malodor present; minimal serosanguinous drainage present, R>L. Negative probe to bone B/ L. Ulceration measuring 0.4 x 0.4 x 0.2 cm noted sub met head 1 right foot with hyperkeratotic rim. Additional superficial ulceration noted to dorsolateral forefoot measuring approx 1cm x 1cm x 0.1cm with mixed fibrogranular base and stable wound borders. Stable hyperkeratosis noted to distal tuft of left hallux with minimal dry hematoma formation noted. ORTHO: Pain on palpation noted to ulcerations. Muscle strength 5/5 for all dorsiflexors, plantarflexors, inverters, and everters B/L. Ankle joint ROM limited secondary to pain B/L - Neurological Exam Neurological Exam: Alert, Awake, Oriented x3 - Psychiatric Exam Psychiatric exam: Normal Affect, Normal Mood Assessment and Plan - Assessment and Plan (Free Text) Assessment: 82 year old male with venous stasis ulcerations to bilateral ankles 2/2 PVD Plan: Patient seen and evaluated with attending, Dr. Conner, present Wellness check performed. PT stable and in good spirits. Podiatry to continue local wound care Pt is stable from podiatry standpoint for discharge. Podiatry will continue to follow while pt remains in house Pt to follow up in [facility] wound care center with Dr. Srivastava on Sunday following discharge
--- NOTE | 2017-09-20 19:09 | CP.PCM.PN ---
Subjective - Date & Time of Evaluation Date of Evaluation: 09/20/17 Time of Evaluation: 09:00 - Subjective Subjective: events noted rx renewed Objective - Vital Signs/Intake and Output Vital Signs (last 24 hours): Temp Pulse Resp BP Pulse Ox 98.1 F 54 L 20 128/62 97 09/20/17 15:00 09/20/17 15:00 09/20/17 15:00 09/20/17 15:00 09/20/17 15:00 Intake and Output: 09/20/17 09/21/17 18:59 06:59 Intake Total 660 Balance 660 - Medications Medications: Current Medications Aspirin (Aspirin Chewable) 81 mg PO DAILY [facility] Last Admin: 09/20/17 09:08 Dose: 81 mg Clopidogrel Bisulfate (Plavix) 75 mg PO DAILY [facility] Last Admin: 09/20/17 09:07 Dose: 75 mg Famotidine (Pepcid) 20 mg PO DAILY [facility] Last Admin: 09/20/17 09:08 Dose: 20 mg Furosemide (Lasix) 40 mg PO DAILY [facility] Last Admin: 09/20/17 09:08 Dose: 40 mg Guaifenesin (Robitussin) 100 mg PO Q6 [facility] Last Admin: 09/20/17 17:43 Dose: 100 mg Vancomycin HCl 1 gm/ Sodium (Chloride) 250 mls @ 166.7 mls/hr IVPB Q24H [facility] PRN Reason: Protocol Metoprolol Tartrate (Lopressor) 50 mg PO BID [facility] Last Admin: 09/20/17 17:43 Dose: 50 mg Mupirocin (Bactroban Ointment) 0 gm TOP DAILY [facility] Last Admin: 09/19/17 09:18 Dose: Not Given Oxycodone/Acetaminophen (Percocet 5/325 Mg Tab) 1 tab PO Q4H PRN PRN Reason: Pain, severe (8-10) Stop: 09/21/17 09:04 Last Admin: 09/18/17 10:41 Dose: 1 tab Saccharomyces Boulardii (Florastor) 250 mg PO BID [facility] Last Admin: 09/20/17 17:43 Dose: 250 mg - Labs Labs: 09/20/17 07:13 09/20/17 07:13 PT 13.9 SECONDS (9.7-12.2) H 09/13/17 14:52 INR 1.3 09/13/17 14:52 APTT 39 SECONDS (21-34) H 09/13/17 14:52 - Constitutional Appears: Non-toxic, Chronically Ill - Head Exam Head Exam: NORMOCEPHALIC - Eye Exam Eye Exam: absent: Nystagmus - ENT Exam ENT Exam: Mucous Membranes Dry - Neck Exam Neck Exam: absent: Lymphadenopathy - Respiratory Exam Respiratory Exam: Decreased Breath Sounds - Cardiovascular Exam Cardiovascular Exam: REGULAR RHYTHM - GI/Abdominal Exam GI & Abdominal Exam: Distended - Rectal Exam Rectal Exam: Deferred - Exam Exam: NORMAL INSPECTION - Extremities Exam Extremities Exam: Pedal Edema, Tenderness - Back Exam Back Exam: absent: CVA tenderness (L), CVA tenderness (R) - Neurological Exam Neurological Exam: Alert, Awake Assessment and Plan (1) Acute renal insufficiency Status: Acute (2) Ischemic ulcer of ankle Status: Acute (3) Anemia Status: Acute (4) CAD (coronary artery disease) Status: Acute (5) Cellulitis Status: Acute (6) Dehydration Status: Acute (7) HTN (hypertension) Status: Acute (8) Heart valve replaced Status: Acute
[2017-09-20] MEDS: Piperacill/Tazo 3.375gm in Dex 3.375 GM/50 ML BAG IVPB SCH (19:50)
[2017-09-20] MEDS: Vancomycin 1 gm/NS 200 ml 1 GM/200 ML BAG IVPB SCH (20:26)
[2017-09-20] MEDS: Oxycodone/Acetaminophen 5/325 mg Tab PO PRN (21:35)
[2017-09-21] MEDS: Piperacill/Tazo 3.375gm in Dex 3.375 GM/50 ML BAG IVPB SCH ×3 (03:19→19:25)
[2017-09-21] MEDS: guaiFENesin 100 mg/5 ml Syrup UD PO SCH ×4 (06:07→23:53)
[2017-09-21 06:48] LABS: BASO # 0.1 K/uL (0.0-0.2); EOS # 0.4 K/uL (0.0-0.7); EOS % 6.1 % (0.0-4.0); HEMOGLOBIN 10.2 g/dL (12.0-18.0); LYMPH # 1.9 K/uL (1.0-4.3); LYMPH % 26.2 % (20.0-40.0); MEAN CELL VOLUME 74.1 fL (80.0-94.0); MEAN CORPUSCULAR HEMOGLOBIN 23.5 pg (27.0-31.0); MEAN CORPUSCULAR HGB CONC 31.8 g/dL (33.0-37.0); MEAN PLATELET VOLUME 9.7 fL (7.2-11.7); MONO # 0.8 K/uL (0.0-0.8); MONO % 11.3 % (0.0-10.0); NEUT # 3.9 K/uL (1.8-7.0); NEUT % 55.4 % (50.0-75.0); RBC 4.36 Mil/uL (4.40-5.90); RED CELL DISTRIBUTION WIDTH 23.8 % (11.5-14.5); WHITE BLOOD COUNT 7.1 K/uL (4.8-10.8)
[2017-09-21 07:47] LABS: ALB/GLOB RATIO 0.8 (1.0-2.1); ALBUMIN 3.2 g/dL (3.5-5.0); ALT/SGPT 33 U/L (21-72); AST/SGOT 49 U/L (17-59); BLOOD UREA NITROGEN 23 mg/dL (9-20); GFR AFRICAN-AMERICAN > 60; GFR NON-AFRICAN AMERICAN 53
[2017-09-21] MEDS: Saccharomyces Boulardi 250 mg Cap PO SCH ×2 (09:13→17:45)
--- NOTE | 2017-09-21 10:28 | CP.PCM.PN ---
Subjective - Date & Time of Evaluation Date of Evaluation: 09/21/17 Time of Evaluation: 10:25 - Subjective Subjective: Progress Note for Dr. Verdin's Service Patient seen and examined at bedside this morning. Pt is cleared for discharge. He is awaiting placement. No acute events overnight. His is also inpatient currently at [facility]. Pt would like to go to [facility] rehab with his as she is unable to care for herself without him. He denies fevers/ chills, DUQUE, CP, SOB, abdominal pain, N/V/D, dysuria/freq/urg or lower extremity pain/swelling. Objective - Vital Signs/Intake and Output Vital Signs (last 24 hours): Temp Pulse Resp BP Pulse Ox 97.9 F 60 20 150/90 96 09/21/17 08:37 09/21/17 08:37 09/21/17 08:37 09/21/17 09:13 09/21/17 08:37 Intake and Output: 09/21/17 09/21/17 06:59 18:59 Intake Total 300 Output Total 750 Balance -450 - Medications Medications: Current Medications Aspirin (Aspirin Chewable) 81 mg PO DAILY [facility] Last Admin: 09/21/17 09:13 Dose: 81 mg Clopidogrel Bisulfate (Plavix) 75 mg PO DAILY [facility] Last Admin: 09/21/17 09:13 Dose: 75 mg Famotidine (Pepcid) 20 mg PO DAILY [facility] Last Admin: 09/21/17 09:12 Dose: 20 mg Furosemide (Lasix) 40 mg PO DAILY [facility] Last Admin: 09/21/17 09:13 Dose: 40 mg Guaifenesin (Robitussin) 100 mg PO Q6 [facility] Last Admin: 09/21/17 06:07 Dose: 100 mg Vancomycin/Sodium Chloride (Vancomycin 1 Gm/Ns 200 Ml) 1 gm in 200 mls @ 133 mls/hr IVPB Q24H [facility] PRN Reason: Protocol Stop: 09/25/17 20:01 Last Admin: 09/20/17 20:26 Dose: 133 mls/hr Piperacillin Sod/Tazobactam Sod (Zosyn 3.375 Gm Iv Premix) 3.375 gm in 50 mls @ 100 mls/hr IVPB Q8H [facility] PRN Reason: Protocol Last Admin: 09/21/17 03:19 Dose: 100 mls/hr Metoprolol Tartrate (Lopressor) 50 mg PO BID [facility] Last Admin: 09/21/17 09:13 Dose: 50 mg Mupirocin (Bactroban Ointment) 0 gm TOP DAILY [facility] Last Admin: 09/21/17 09:13 Dose: Not Given Saccharomyces Boulardii (Florastor) 250 mg PO BID [facility] Last Admin: 09/21/17 09:13 Dose: 250 mg - Labs Labs: 09/21/17 06:35 09/21/17 06:35 PT 13.9 SECONDS (9.7-12.2) H 09/13/17 14:52 INR 1.3 09/13/17 14:52 APTT 39 SECONDS (21-34) H 09/13/17 14:52 - Constitutional Appears: No Acute Distress - Head Exam Head Exam: ATRAUMATIC - Eye Exam Eye Exam: EOMI, Normal appearance - ENT Exam ENT Exam: Mucous Membranes Moist - Respiratory Exam Respiratory Exam: Clear to Ausculation Bilateral, NORMAL BREATHING PATTERN - Cardiovascular Exam Cardiovascular Exam: REGULAR RHYTHM, +S1, +S2 - GI/Abdominal Exam GI & Abdominal Exam: Soft. absent: Tenderness - Extremities Exam Additional comments: DRESSINGS C/D/I - Neurological Exam Neurological Exam: Alert, Awake, Oriented x3 - Psychiatric Exam Psychiatric exam: Normal Affect, Normal Mood - Skin Skin Exam: Dry, Warm Assessment and Plan - Assessment and Plan (Free Text) Plan: Lower extremity wounds/Cellulitis Afebrile, no leukocytosis Wound care consulted Zosyn 2.25gm IVPB Q6H (start 09/13) Vancomycin 1g IVPB Q12H (start 09/13) wound culture is growing proteus, enterococcus, and klebsiella venous doppler negative b/l for DVT Percocet prn for pain ID consulted, Dr. Allison help appreciated Podiatry consulted- Dr. Yañez- help appreciated PVD/PAD Vascular Surgery Dr. Velasquez consulted Recommend compression stockings and local wound care History of Aortic Valve Replacement Continue Plavix and ASA Echo from 2017 shows dilated cardiomyopathy with preserved EF; no CHF CAD (coronary artery disease) Patient on ASA and Plavix at home, continue meds. HTN (hypertension) BP controlled Continue Lopressor 50 mg PO BID Hx of Anemia Hgb 10.2, stable will continue to monitor Prophylactic measure Pepcid lovenox 40u sc daily- RENEWED 09/21 PT eval completed The patient is stable for d/c the patient will need a visiting nurse, daily, for wound care, until his wounds are cleaned he will need to follow with podiatry weekly for wound checks as well, as well as the wound care clinic the patient should be non-weight bearing for the time being and will be prescribed a wheelchair until his wounds are healed he should take bactrim, BID, for 14 days, for his infection as well as the probiotic prescribed to prevent diarrhea the patient should continue with all of his other medications as prescribed and follow up with his PCP in one week Case discussed with Dr. Verdin All medical managment as per Dr. Verdin
--- NOTE | 2017-09-21 11:20 | CP.PCM.PN ---
Subjective - Date & Time of Evaluation Date of Evaluation: 09/21/17 Time of Evaluation: 10:00 - Subjective Subjective: Podiatry Progress Note - Dr. Conner 82 year old male seen this morning at bedside for bilateral lower extremity ulcerations. Pt is doing well and is awaiting subacute rehab placement. Pt has no edison pedal complaints. Dressings to bilateral LE remain clean/dry/intact. Has no other pedal complaints at present. Denies N/V/F/D/C/SOB. Objective - Vital Signs/Intake and Output Vital Signs (last 24 hours): Temp Pulse Resp BP Pulse Ox 97.9 F 60 20 150/90 96 09/21/17 08:37 09/21/17 08:37 09/21/17 08:37 09/21/17 09:13 09/21/17 08:37 Intake and Output: 09/21/17 09/21/17 06:59 18:59 Intake Total 300 Output Total 750 Balance -450 - Medications Medications: Current Medications Aspirin (Aspirin Chewable) 81 mg PO DAILY [facility] Last Admin: 09/21/17 09:13 Dose: 81 mg Clopidogrel Bisulfate (Plavix) 75 mg PO DAILY [facility] Last Admin: 09/21/17 09:13 Dose: 75 mg Enoxaparin Sodium (Lovenox) 40 mg SC DAILY [facility] Famotidine (Pepcid) 20 mg PO DAILY [facility] Last Admin: 09/21/17 09:12 Dose: 20 mg Furosemide (Lasix) 40 mg PO DAILY [facility] Last Admin: 09/21/17 09:13 Dose: 40 mg Guaifenesin (Robitussin) 100 mg PO Q6 [facility] Last Admin: 09/21/17 06:07 Dose: 100 mg Vancomycin/Sodium Chloride (Vancomycin 1 Gm/Ns 200 Ml) 1 gm in 200 mls @ 133 mls/hr IVPB Q24H [facility] PRN Reason: Protocol Stop: 09/25/17 20:01 Last Admin: 09/20/17 20:26 Dose: 133 mls/hr Piperacillin Sod/Tazobactam Sod (Zosyn 3.375 Gm Iv Premix) 3.375 gm in 50 mls @ 100 mls/hr IVPB Q8H [facility] PRN Reason: Protocol Last Admin: 09/21/17 03:19 Dose: 100 mls/hr Metoprolol Tartrate (Lopressor) 50 mg PO BID [facility] Last Admin: 09/21/17 09:13 Dose: 50 mg Mupirocin (Bactroban Ointment) 0 gm TOP DAILY [facility] Last Admin: 09/21/17 09:13 Dose: Not Given Saccharomyces Boulardii (Florastor) 250 mg PO BID [facility] Last Admin: 09/21/17 09:13 Dose: 250 mg - Labs Labs: 09/21/17 06:35 09/21/17 06:35 PT 13.9 SECONDS (9.7-12.2) H 09/13/17 14:52 INR 1.3 09/13/17 14:52 APTT 39 SECONDS (21-34) H 09/13/17 14:52 - Constitutional Appears: Well, Non-toxic, No Acute Distress - Extremities Exam Additional comments: Lower extremity focused. Dressings, clean and intact with serous strikethrough o outer layer of dressing. VASC: DP pulses weakly palpable 1/4 B/L. PT pulses non-palpable B/L. CFT >3 seconds. Temperature gradient warm to cool. Bilateral LE edema noted. NEURO: Gross sensation diminished B/L DERM: Full thickness ulcerations spanning circumfrentially in width around ankle joint and measuring approx 10cm from proximal to distal length B/L - noted to have a mixed fibrogranular base absent erythematous rim; mild malodor present; minimal serosanguinous drainage present, R>L. Negative probe to bone B/ L. Ulceration measuring 0.2 x 0.2 x 0.1 cm noted sub met head 1 right foot. Additional superficial ulceration noted to dorsolateral forefoot measuring approx 1cm x 1cm x 0.1cm with mixed fibrogranular base and stable wound borders. Stable hyperkeratosis noted to distal tuft of left hallux with minimal dry hematoma formation noted. ORTHO: Pain on palpation noted to ulcerations. Muscle strength 5/5 for all dorsiflexors, plantarflexors, inverters, and everters B/L. Ankle joint ROM limited secondary to pain B/L - Neurological Exam Neurological Exam: Alert, Awake, Oriented x3 - Psychiatric Exam Psychiatric exam: Normal Affect, Normal Mood Assessment and Plan - Assessment and Plan (Free Text) Assessment: 82 year old male with venous stasis ulcerations to bilateral ankles 2/2 PVD. Plan: Patient seen and evaluated. Discussed with attending, Dr. Conner, who endorsed the following plan. Wellness check performed. PT stable and in good spirits. Podiatry to continue local wound care Pt is stable from podiatry standpoint for discharge. Awaiting [facility] placement. Podiatry will continue to follow while pt remains in house Pt to follow up in [facility] wound care center with Dr. Srivastava on first Sunday following discharge
[2017-09-21] MEDS: Vancomycin 1 gm/NS 200 ml 1 GM/200 ML BAG IVPB SCH (20:10)
[2017-09-22] MEDS: Piperacill/Tazo 3.375gm in Dex 3.375 GM/50 ML BAG IVPB SCH ×3 (02:34→19:59)
[2017-09-22] MEDS: guaiFENesin 100 mg/5 ml Syrup UD PO SCH ×3 (05:29→17:28)
[2017-09-22 06:27] LABS: BASO % 0.6 % (0.0-2.0); EOS # 0.6 K/uL (0.0-0.7); EOS % 6.6 % (0.0-4.0); HEMOGLOBIN 10.6 g/dL (12.0-18.0); LYMPH # 2.2 K/uL (1.0-4.3); LYMPH % 25.7 % (20.0-40.0); MEAN CELL VOLUME 74.4 fL (80.0-94.0); MEAN CORPUSCULAR HEMOGLOBIN 23.4 pg (27.0-31.0); MEAN CORPUSCULAR HGB CONC 31.4 g/dL (33.0-37.0); MEAN PLATELET VOLUME 9.1 fL (7.2-11.7); MONO % 11.8 % (0.0-10.0); NEUT # 4.8 K/uL (1.8-7.0); NEUT % 55.3 % (50.0-75.0); RBC 4.55 Mil/uL (4.40-5.90); WHITE BLOOD COUNT 8.6 K/uL (4.8-10.8)
[2017-09-22 07:13] LABS: ALB/GLOB RATIO 0.8 (1.0-2.1); ALBUMIN 3.4 g/dL (3.5-5.0); CALCIUM 9.3 mg/dl (8.6-10.4)
[2017-09-22] MEDS: Saccharomyces Boulardi 250 mg Cap PO SCH ×2 (09:28→17:29)
[2017-09-22] MEDS: Enoxaparin 40 mg Syringe SC SCH (09:29)
--- NOTE | 2017-09-22 11:02 | CP.PCM.PN ---
Subjective - Date & Time of Evaluation Date of Evaluation: 09/22/17 Time of Evaluation: 11:00 - Subjective Subjective: Podiatry Progress Note - Dr. Conner 82 year old male seen this morning at bedside with attending Dr. Conner for bilateral lower extremity ulcerations. Pt is doing well and is awaiting subacute rehab placement. Pt seen ambulating on floors prior to dressing change with use of cane. Pt has no new pedal complaints. Dressings to bilateral LE remain clean/dry/intact. Denies N/V/F/D/C/SOB. Objective - Vital Signs/Intake and Output Vital Signs (last 24 hours): Temp Pulse Resp BP Pulse Ox 98.1 F 52 L 20 130/70 95 09/22/17 07:16 09/22/17 07:16 09/22/17 07:16 09/22/17 09:28 09/22/17 07:16 - Medications Medications: Current Medications Aspirin (Aspirin Chewable) 81 mg PO DAILY [facility] Last Admin: 09/22/17 09:28 Dose: 81 mg Clopidogrel Bisulfate (Plavix) 75 mg PO DAILY [facility] Last Admin: 09/22/17 09:28 Dose: 75 mg Enoxaparin Sodium (Lovenox) 40 mg SC DAILY [facility] Last Admin: 09/22/17 09:29 Dose: 40 mg Famotidine (Pepcid) 20 mg PO DAILY [facility] Last Admin: 09/22/17 09:28 Dose: 20 mg Furosemide (Lasix) 40 mg PO DAILY [facility] Last Admin: 09/22/17 09:28 Dose: 40 mg Guaifenesin (Robitussin) 100 mg PO Q6 [facility] Last Admin: 09/22/17 05:29 Dose: 100 mg Vancomycin/Sodium Chloride (Vancomycin 1 Gm/Ns 200 Ml) 1 gm in 200 mls @ 133 mls/hr IVPB Q24H [facility] PRN Reason: Protocol Stop: 09/25/17 20:01 Last Admin: 09/21/17 20:10 Dose: 133 mls/hr Piperacillin Sod/Tazobactam Sod (Zosyn 3.375 Gm Iv Premix) 3.375 gm in 50 mls @ 100 mls/hr IVPB Q8H [facility] PRN Reason: Protocol Last Admin: 09/22/17 02:34 Dose: 100 mls/hr Metoprolol Tartrate (Lopressor) 50 mg PO BID [facility] Last Admin: 09/22/17 09:28 Dose: 50 mg Mupirocin (Bactroban Ointment) 0 gm TOP DAILY [facility] Last Admin: 09/22/17 09:26 Dose: Not Given Saccharomyces Boulardii (Florastor) 250 mg PO BID [facility] Last Admin: 09/22/17 09:28 Dose: 250 mg - Labs Labs: 09/22/17 06:18 09/22/17 06:18 PT 13.9 SECONDS (9.7-12.2) H 09/13/17 14:52 INR 1.3 09/13/17 14:52 APTT 39 SECONDS (21-34) H 09/13/17 14:52 - Constitutional Appears: Well, Non-toxic, No Acute Distress - Extremities Exam Additional comments: Lower extremity focused. Dressings, clean and intact with mild strikethrough noted to inner layer of dressing. VASC: DP pulses weakly palpable 1/4 B/L. PT pulses non-palpable B/L. CFT >3 seconds. Temperature gradient warm to cool. Bilateral LE edema noted. NEURO: Gross sensation diminished B/L DERM: Full thickness ulcerations spanning circumferentially in width around ankle joint and measuring approx 10cm from proximal to distal length B/L - noted to have a mixed fibrogranular base absent erythematous rim; mild malodor present; minimal serosanguinous drainage present, R>L. Negative probe to bone B/ L. Ulceration measuring 0.2 x 0.2 x 0.1 cm noted sub met head 1 right foot. Additional superficial ulceration noted to dorsolateral forefoot measuring approx 1cm x 1cm x 0.1cm with mixed fibrogranular base and stable wound borders. Stable hyperkeratosis noted to distal tuft of left hallux with minimal dry hematoma formation noted. ORTHO: Mild pain on palpation noted to ulcerations. Muscle strength 5/5 for all dorsiflexors, plantarflexors, inverters, and everters B/L. Ankle joint ROM limited secondary to pain B/L - Neurological Exam Neurological Exam: Alert, Awake, Oriented x3 - Psychiatric Exam Psychiatric exam: Normal Affect, Normal Mood Assessment and Plan - Assessment and Plan (Free Text) Assessment: 82 year old male with venous stasis ulcerations to bilateral ankles 2/2 PVD Plan: Patient seen and evaluated with attending, Dr. Conner Podiatry to continue local wound care with bactroban, xeroform, DSD B/L Pt is stable from podiatry standpoint for discharge. Awaiting [facility] placement Podiatry will continue to follow while pt remains in house Pt to follow up in [facility] wound care center with Dr. Srivastava on first Sunday following discharge
[2017-09-22] MEDS: Vancomycin 1 gm/NS 200 ml 1 GM/200 ML BAG IVPB SCH (19:59)
[2017-09-23] MEDS: guaiFENesin 100 mg/5 ml Syrup UD PO SCH ×4 (00:40→18:54)
[2017-09-23] MEDS: Piperacill/Tazo 3.375gm in Dex 3.375 GM/50 ML BAG IVPB SCH ×3 (02:30→18:45)
[2017-09-23 08:05] LABS: BASO # 0.1 K/uL (0.0-0.2); BASO % 0.9 % (0.0-2.0); EOS # 0.5 K/uL (0.0-0.7); EOS % 6.7 % (0.0-4.0); HEMOGLOBIN 10.5 g/dL (12.0-18.0); LYMPH % 25.1 % (20.0-40.0); MEAN CELL VOLUME 73.3 fL (80.0-94.0); MEAN CORPUSCULAR HEMOGLOBIN 23.4 pg (27.0-31.0); MEAN CORPUSCULAR HGB CONC 31.9 g/dL (33.0-37.0); MEAN PLATELET VOLUME 9.4 fL (7.2-11.7); MONO # 0.8 K/uL (0.0-0.8); MONO % 10.5 % (0.0-10.0); NEUT # 4.4 K/uL (1.8-7.0); NEUT % 56.8 % (50.0-75.0); NRBC % 0.1 % (0.0-2.0); RBC 4.5 Mil/uL (4.40-5.90); RED CELL DISTRIBUTION WIDTH 24.1 % (11.5-14.5); WHITE BLOOD COUNT 7.8 K/uL (4.8-10.8)
[2017-09-23 08:37] LABS: ALB/GLOB RATIO 0.8 (1.0-2.1); ALBUMIN 3.2 g/dL (3.5-5.0); CALCIUM 9.3 mg/dl (8.6-10.4)
[2017-09-23] MEDS: Enoxaparin 40 mg Syringe SC SCH (09:11)
[2017-09-23] MEDS: Saccharomyces Boulardi 250 mg Cap PO SCH ×2 (09:12→18:54)
--- NOTE | 2017-09-23 15:27 | CP.PCM.PN ---
Subjective - Date & Time of Evaluation Date of Evaluation: 09/23/17 Time of Evaluation: 07:00 - Subjective Subjective: afeb wounds same IV Vanco trough ordered Objective - Vital Signs/Intake and Output Vital Signs (last 24 hours): Temp Pulse Resp BP Pulse Ox 97.4 F L 61 20 160/90 H 97 09/23/17 07:44 09/23/17 07:44 09/23/17 07:44 09/23/17 09:10 09/23/17 07:44 Intake and Output: 09/23/17 09/23/17 06:59 18:59 Intake Total 350 Output Total 800 Balance -450 - Medications Medications: Current Medications Aspirin (Aspirin Chewable) 81 mg PO DAILY [facility] Last Admin: 09/23/17 09:10 Dose: 81 mg Clopidogrel Bisulfate (Plavix) 75 mg PO DAILY [facility] Last Admin: 09/23/17 09:11 Dose: 75 mg Enoxaparin Sodium (Lovenox) 40 mg SC DAILY [facility] Last Admin: 09/23/17 09:11 Dose: 40 mg Famotidine (Pepcid) 20 mg PO DAILY [facility] Last Admin: 09/23/17 09:10 Dose: 20 mg Furosemide (Lasix) 40 mg PO DAILY [facility] Last Admin: 09/23/17 09:10 Dose: 40 mg Guaifenesin (Robitussin) 100 mg PO Q6 [facility] Last Admin: 09/23/17 11:14 Dose: Not Given Vancomycin/Sodium Chloride (Vancomycin 1 Gm/Ns 200 Ml) 1 gm in 200 mls @ 133 mls/hr IVPB Q24H [facility] PRN Reason: Protocol Stop: 09/25/17 20:01 Last Admin: 09/22/17 19:59 Dose: 133 mls/hr Piperacillin Sod/Tazobactam Sod (Zosyn 3.375 Gm Iv Premix) 3.375 gm in 50 mls @ 100 mls/hr IVPB Q8H [facility] PRN Reason: Protocol Last Admin: 09/23/17 11:11 Dose: 100 mls/hr Metoprolol Tartrate (Lopressor) 50 mg PO BID [facility] Last Admin: 09/23/17 09:10 Dose: 50 mg Mupirocin (Bactroban Ointment) 0 gm TOP DAILY [facility] Last Admin: 09/23/17 09:11 Dose: Not Given Saccharomyces Boulardii (Florastor) 250 mg PO BID [facility] Last Admin: 09/23/17 09:12 Dose: 250 mg - Labs Labs: 09/23/17 07:46 09/23/17 07:46 PT 13.9 SECONDS (9.7-12.2) H 09/13/17 14:52 INR 1.3 09/13/17 14:52 APTT 39 SECONDS (21-34) H 09/13/17 14:52 Assessment and Plan (1) Acute renal insufficiency Status: Acute (2) Ischemic ulcer of ankle Status: Acute (3) Anemia Status: Acute (4) CAD (coronary artery disease) Status: Acute (5) Cellulitis Status: Acute (6) Dehydration Status: Acute (7) HTN (hypertension) Status: Acute (8) Heart valve replaced Status: Acute
[2017-09-23] MEDS: Vancomycin 1 gm/NS 200 ml 1 GM/200 ML BAG IVPB SCH (19:03)
[2017-09-24] MEDS: guaiFENesin 100 mg/5 ml Syrup UD PO SCH ×4 (00:45→17:39)
[2017-09-24] MEDS: Piperacill/Tazo 3.375gm in Dex 3.375 GM/50 ML BAG IVPB SCH ×3 (03:00→20:34)
--- NOTE | 2017-09-24 07:53 | PN ---
DATE: 09/23/2017 The patient on IV antibiotics, supportive care, evaluation. Brandy Verdin MD
[2017-09-24] MEDS: Enoxaparin 40 mg Syringe SC SCH (10:21)
[2017-09-24] MEDS: Saccharomyces Boulardi 250 mg Cap PO SCH ×2 (10:21→17:38)
--- NOTE | 2017-09-24 12:28 | CP.PCM.PN ---
Subjective - Date & Time of Evaluation Date of Evaluation: 09/24/17 Time of Evaluation: 12:27 - Subjective Subjective: PGY2 Note for Dr. Verdin; all management as per Dr. Verdin This patient was seen and examined at bedside this AM; patient is in good spirits dressed in his street clothes ready to go to [facility] and offers no complaints today. Objective - Vital Signs/Intake and Output Vital Signs (last 24 hours): Temp Pulse Resp BP Pulse Ox 98.7 F 60 20 145/74 96 09/24/17 07:35 09/24/17 07:35 09/24/17 07:35 09/24/17 10:21 09/24/17 07:35 Intake and Output: 09/24/17 09/24/17 06:59 18:59 Intake Total 950 Output Total 3100 Balance -2150 - Medications Medications: Current Medications Aspirin (Aspirin Chewable) 81 mg PO DAILY [facility] Last Admin: 09/24/17 10:21 Dose: 81 mg Clopidogrel Bisulfate (Plavix) 75 mg PO DAILY [facility] Last Admin: 09/24/17 10:21 Dose: 75 mg Enoxaparin Sodium (Lovenox) 40 mg SC DAILY [facility] Last Admin: 09/24/17 10:21 Dose: 40 mg Famotidine (Pepcid) 20 mg PO DAILY [facility] Last Admin: 09/24/17 10:21 Dose: 20 mg Furosemide (Lasix) 40 mg PO DAILY [facility] Last Admin: 09/24/17 10:21 Dose: 40 mg Guaifenesin (Robitussin) 100 mg PO Q6 [facility] Last Admin: 09/24/17 05:15 Dose: 100 mg Vancomycin/Sodium Chloride (Vancomycin 1 Gm/Ns 200 Ml) 1 gm in 200 mls @ 133 mls/hr IVPB Q24H [facility] PRN Reason: Protocol Stop: 09/25/17 20:01 Last Admin: 09/23/17 19:03 Dose: 133 mls/hr Piperacillin Sod/Tazobactam Sod (Zosyn 3.375 Gm Iv Premix) 3.375 gm in 50 mls @ 100 mls/hr IVPB Q8H [facility] PRN Reason: Protocol Last Admin: 09/24/17 03:00 Dose: 100 mls/hr Metoprolol Tartrate (Lopressor) 50 mg PO BID [facility] Last Admin: 09/24/17 10:20 Dose: 50 mg Mupirocin (Bactroban Ointment) 0 gm TOP DAILY [facility] Last Admin: 09/24/17 10:22 Dose: Not Given Saccharomyces Boulardii (Florastor) 250 mg PO BID [facility] Last Admin: 09/24/17 10:21 Dose: 250 mg - Labs Labs: 09/23/17 07:46 09/23/17 07:46 PT 13.9 SECONDS (9.7-12.2) H 09/13/17 14:52 INR 1.3 09/13/17 14:52 APTT 39 SECONDS (21-34) H 09/13/17 14:52 Assessment and Plan - Assessment and Plan (Free Text) Assessment: Appears: No Acute Distress - Head Exam Head Exam: ATRAUMATIC - Eye Exam Eye Exam: EOMI, Normal appearance - ENT Exam ENT Exam: Mucous Membranes Moist - Respiratory Exam Respiratory Exam: Clear to Ausculation Bilateral, NORMAL BREATHING PATTERN - Cardiovascular Exam Cardiovascular Exam: REGULAR RHYTHM, +S1, +S2 - GI/Abdominal Exam GI & Abdominal Exam: Soft. absent: Tenderness - Extremities Exam Additional comments: DRESSINGS C/D/I - Neurological Exam Neurological Exam: Alert, Awake, Oriented x3 - Psychiatric Exam Psychiatric exam: Normal Affect, Normal Mood - Skin Skin Exam: Dry, Warm Assessment and Plan - Assessment and Plan (Free Text) Plan: Lower extremity wounds/Cellulitis Afebrile, no leukocytosis Wound care consulted Zosyn 2.25gm IVPB Q6H (start 09/13) Vancomycin 1g IVPB Q12H (start 09/13) wound culture is growing proteus, enterococcus, and klebsiella venous doppler negative b/l for DVT Percocet prn for pain ID consulted, Dr. Allison help appreciated Podiatry consulted- Dr. Yañez- help appreciated PVD/PAD Vascular Surgery Dr. Velasquez consulted Recommend compression stockings and local wound care History of Aortic Valve Replacement Continue Plavix and ASA Echo from 2017 shows dilated cardiomyopathy with preserved EF; no CHF CAD (coronary artery disease) Patient on ASA and Plavix at home, continue meds. HTN (hypertension) BP controlled Continue Lopressor 50 mg PO BID Hx of Anemia Hgb 10.2, stable will continue to monitor Prophylactic measure Pepcid lovenox 40u sc daily- RENEWED 09/21 PT eval completed The patient is stable for d/c since 09/21; pending placement to [facility] with the patient will need a visiting nurse, daily, for wound care, until his wounds are cleaned; cannot have visiting nurse or services 2/2 to bed bugs at home he will need to follow with podiatry weekly for wound checks as well, as well as the wound care clinic the patient should be non-weight bearing for the time being and will be prescribed a wheelchair until his wounds are healed he should take bactrim, BID, for 14 days, for his infection as well as the probiotic prescribed to prevent diarrhea the patient should continue with all of his other medications as prescribed and follow up with his PCP in one week Case discussed with Dr. Verdin All medical managment as per Dr. Verdin
[2017-09-24] MEDS: Vancomycin 1 gm/NS 200 ml 1 GM/200 ML BAG IVPB SCH (21:37)
[2017-09-25] MEDS: guaiFENesin 100 mg/5 ml Syrup UD PO SCH ×5 (00:24→17:46)
[2017-09-25] MEDS: Piperacill/Tazo 3.375gm in Dex 3.375 GM/50 ML BAG IVPB SCH ×2 (03:40→11:20)
[2017-09-25] MEDS: Enoxaparin 40 mg Syringe SC SCH (09:29)
[2017-09-25] MEDS: Saccharomyces Boulardi 250 mg Cap PO SCH ×2 (09:29→17:45)
--- NOTE | 2017-09-25 10:11 | CP.PCM.PN ---
Subjective - Date & Time of Evaluation Date of Evaluation: 09/25/17 Time of Evaluation: 10:10 - Subjective Subjective: PGY2 Medicine Note for Dr. Verdin; all management as per Dr. Verdin This patient has been stable for D/c since 09/22; the patient does not have approval for [facility] yet; the patient remains clinically unchanged. Objective - Vital Signs/Intake and Output Vital Signs (last 24 hours): Temp Pulse Resp BP Pulse Ox 97.3 F L 49 L 20 122/63 99 09/25/17 07:48 09/25/17 07:48 09/25/17 07:48 09/25/17 09:30 09/25/17 07:48 Intake and Output: 09/25/17 09/25/17 06:59 18:59 Intake Total 1000 Output Total 0 Balance 1000 - Medications Medications: Current Medications Aspirin (Aspirin Chewable) 81 mg PO DAILY [facility] Last Admin: 09/25/17 09:29 Dose: 81 mg Clopidogrel Bisulfate (Plavix) 75 mg PO DAILY [facility] Last Admin: 09/25/17 09:29 Dose: 75 mg Enoxaparin Sodium (Lovenox) 40 mg SC DAILY [facility] Last Admin: 09/25/17 09:29 Dose: 40 mg Famotidine (Pepcid) 20 mg PO DAILY [facility] Last Admin: 09/25/17 09:29 Dose: 20 mg Furosemide (Lasix) 40 mg PO DAILY [facility] Last Admin: 09/25/17 09:30 Dose: 40 mg Guaifenesin (Robitussin) 100 mg PO Q6 [facility] Last Admin: 09/25/17 05:55 Dose: Not Given Vancomycin/Sodium Chloride (Vancomycin 1 Gm/Ns 200 Ml) 1 gm in 200 mls @ 133 mls/hr IVPB Q24H [facility] PRN Reason: Protocol Stop: 09/25/17 20:01 Last Admin: 09/24/17 21:37 Dose: 133 mls/hr Piperacillin Sod/Tazobactam Sod (Zosyn 3.375 Gm Iv Premix) 3.375 gm in 50 mls @ 100 mls/hr IVPB Q8H [facility] PRN Reason: Protocol Last Admin: 09/25/17 03:40 Dose: 100 mls/hr Metoprolol Tartrate (Lopressor) 50 mg PO BID [facility] Last Admin: 09/25/17 09:29 Dose: 50 mg Mupirocin (Bactroban Ointment) 0 gm TOP DAILY [facility] Last Admin: 09/25/17 09:33 Dose: 1 applic Saccharomyces Boulardii (Florastor) 250 mg PO BID [facility] Last Admin: 09/25/17 09:29 Dose: 250 mg - Labs Labs: 09/23/17 07:46 09/23/17 07:46 PT 13.9 SECONDS (9.7-12.2) H 09/13/17 14:52 INR 1.3 09/13/17 14:52 APTT 39 SECONDS (21-34) H 09/13/17 14:52 Assessment and Plan - Assessment and Plan (Free Text) Assessment: Appears: No Acute Distress - Head Exam Head Exam: ATRAUMATIC - Eye Exam Eye Exam: EOMI, Normal appearance - ENT Exam ENT Exam: Mucous Membranes Moist - Respiratory Exam Respiratory Exam: Clear to Ausculation Bilateral, NORMAL BREATHING PATTERN - Cardiovascular Exam Cardiovascular Exam: REGULAR RHYTHM, +S1, +S2 - GI/Abdominal Exam GI & Abdominal Exam: Soft. absent: Tenderness - Extremities Exam Additional comments: DRESSINGS C/D/I - Neurological Exam Neurological Exam: Alert, Awake, Oriented x3 - Psychiatric Exam Psychiatric exam: Normal Affect, Normal Mood - Skin Skin Exam: Dry, Warm Assessment and Plan - Assessment and Plan (Free Text) Plan: Lower extremity wounds/Cellulitis; resolving Afebrile, no leukocytosis Wound care consulted Zosyn 2.25gm IVPB Q6H (start 09/13) Vancomycin 1g IVPB Q12H (start 09/13) wound culture is growing proteus, enterococcus, and klebsiella venous doppler negative b/l for DVT Percocet prn for pain ID consulted, Dr. Allison help appreciated Podiatry consulted- Dr. Yañez- help appreciated PVD/PAD Vascular Surgery Dr. Velasquez consulted Recommend compression stockings and local wound care History of Aortic Valve Replacement Continue Plavix and ASA Echo from 2017 shows dilated cardiomyopathy with preserved EF; no CHF CAD (coronary artery disease) Patient on ASA and Plavix at home, continue meds. HTN (hypertension) BP controlled Continue Lopressor 50 mg PO BID Hx of Anemia Hgb 10.2, stable will continue to monitor Prophylactic measure Pepcid lovenox 40u sc daily- RENEWED 09/21 PT eval completed The patient is stable for d/c since 09/21; pending placement to [facility] with the patient will need a visiting nurse, daily, for wound care, until his wounds are cleaned; cannot have visiting nurse or services 2/2 to bed bugs at home he will need to follow with podiatry weekly for wound checks as well, as well as the wound care clinic the patient should be non-weight bearing for the time being and will be prescribed a wheelchair until his wounds are healed he should take bactrim, BID, for 14 days, for his infection as well as the probiotic prescribed to prevent diarrhea the patient should continue with all of his other medications as prescribed and follow up with his PCP in one week Case discussed with Dr. Verdin All medical managment as per Dr. Verdin
--- NOTE | 2017-09-25 12:12 | CP.PCM.PN ---
Subjective - Date & Time of Evaluation Date of Evaluation: 09/25/17 Time of Evaluation: 08:40 - Subjective Subjective: Podiatry Progress Note - Dr. Conner 82 year old male seen this morning at bedside with attending Dr. Conner for bilateral lower extremity ulcerations. Pt is doing well and is awaiting subacute rehab placement. Pt seen ambulating on floors prior to dressing change with use of cane. Pt has no new pedal complaints. Dressings to bilateral LE remain clean/dry/intact. Denies N/V/F/D/C/SOB. Objective - Vital Signs/Intake and Output Vital Signs (last 24 hours): Temp Pulse Resp BP Pulse Ox 97.3 F L 49 L 20 122/63 99 09/25/17 07:48 09/25/17 07:48 09/25/17 07:48 09/25/17 09:30 09/25/17 07:48 Intake and Output: 09/25/17 09/25/17 06:59 18:59 Intake Total 1000 Output Total 0 Balance 1000 - Medications Medications: Current Medications Aspirin (Aspirin Chewable) 81 mg PO DAILY [facility] Last Admin: 09/25/17 09:29 Dose: 81 mg Clopidogrel Bisulfate (Plavix) 75 mg PO DAILY [facility] Last Admin: 09/25/17 09:29 Dose: 75 mg Enoxaparin Sodium (Lovenox) 40 mg SC DAILY [facility] Last Admin: 09/25/17 09:29 Dose: 40 mg Famotidine (Pepcid) 20 mg PO DAILY [facility] Last Admin: 09/25/17 09:29 Dose: 20 mg Furosemide (Lasix) 40 mg PO DAILY [facility] Last Admin: 09/25/17 09:30 Dose: 40 mg Guaifenesin (Robitussin) 100 mg PO Q6 [facility] Last Admin: 09/25/17 11:20 Dose: 100 mg Vancomycin/Sodium Chloride (Vancomycin 1 Gm/Ns 200 Ml) 1 gm in 200 mls @ 133 mls/hr IVPB Q24H [facility] PRN Reason: Protocol Stop: 09/25/17 20:01 Last Admin: 09/24/17 21:37 Dose: 133 mls/hr Piperacillin Sod/Tazobactam Sod (Zosyn 3.375 Gm Iv Premix) 3.375 gm in 50 mls @ 100 mls/hr IVPB Q8H [facility] PRN Reason: Protocol Last Admin: 09/25/17 11:20 Dose: 100 mls/hr Metoprolol Tartrate (Lopressor) 50 mg PO BID [facility] Last Admin: 09/25/17 09:29 Dose: 50 mg Mupirocin (Bactroban Ointment) 0 gm TOP DAILY [facility] Last Admin: 09/25/17 09:33 Dose: 1 applic Saccharomyces Boulardii (Florastor) 250 mg PO BID [facility] Last Admin: 09/25/17 09:29 Dose: 250 mg - Labs Labs: 09/23/17 07:46 09/23/17 07:46 PT 13.9 SECONDS (9.7-12.2) H 09/13/17 14:52 INR 1.3 09/13/17 14:52 APTT 39 SECONDS (21-34) H 09/13/17 14:52 - Constitutional Appears: Well, Non-toxic, No Acute Distress - Extremities Exam Additional comments: Lower extremity focused. Dressings, clean and intact with mild strikethrough noted to inner layer of dressing. VASC: DP pulses weakly palpable 1/4 B/L. PT pulses non-palpable B/L. CFT >3 seconds. Temperature gradient warm to cool. Bilateral LE edema noted. NEURO: Gross sensation diminished B/L DERM: Full thickness ulcerations spanning circumferentially in width around ankle joint and measuring approx 10cm from proximal to distal length B/L - noted to have a mixed fibrogranular base absent erythematous rim; mild malodor present; minimal serosanguinous drainage present, R>L. Negative probe to bone B/ L. Closed superficial ulceration undergoing remodeling of epidermal tissue noted sub- first metatarsal head of right foot. Additional superficial ulceration noted to dorsolateral forefoot measuring approx 1cm x 1cm x 0.1cm with mixed fibrogranular base and stable wound borders. Stable hyperkeratosis noted to distal tuft of left hallux with minimal dry hematoma formation noted. ORTHO: Mild pain on palpation noted to ulcerations. Muscle strength 5/5 for all dorsiflexors, plantarflexors, inverters, and everters B/L. Ankle joint ROM limited secondary to pain B/L - Neurological Exam Neurological Exam: Alert, Awake, Oriented x3 Assessment and Plan - Assessment and Plan (Free Text) Assessment: 82 year old male with venous stasis ulcerations to bilateral ankles 2/2 PVD Plan: Patient seen and evaluated with attending, Dr. Conner Podiatry to continue local wound care with bactroban, xeroform, DSD B/L Pt is stable from podiatry standpoint for discharge. Awaiting [facility] placement Podiatry will continue to follow while pt remains in house Pt to follow up in [facility] wound care center with Dr. Srivastava on first Sunday following discharge
[2017-09-25 16:41] VITALS: BP 121/65; PULSE 62; TEMP 98.2; O2SAT 98
== END 2017-09-25 22:45 | DRG 300 ==
LOC: C.ER 14:01 → C.9E 14:45 → C.3T 16:31
PROVIDERS: ADMIT Internal Medicine Pulmonary Disease; ATTEND Internal Medicine Pulmonary Disease
DX: I87.2 Venous insufficiency (chronic) (peripheral) (principal); L97.329 Non-pressure chronic ulcer of left ankle with unspecified severity; L03.116 Cellulitis of left lower limb; L03.115 Cellulitis of right lower limb; L97.319 Non-pressure chronic ulcer of right ankle with unspecified severity; I42.0 Dilated cardiomyopathy; J44.9 Chronic obstructive pulmonary disease, unspecified; I73.9 Peripheral vascular disease, unspecified; N28.9 Disorder of kidney and ureter, unspecified; I50.9 Heart failure, unspecified; I25.10 Atherosclerotic heart disease of native coronary artery without angina pectoris; I11.0 Hypertensive heart disease with heart failure; E86.0 Dehydration; E78.5 Hyperlipidemia, unspecified; D64.9 Anemia, unspecified; F17.210 Nicotine dependence, cigarettes, uncomplicated; K21.9 Gastro-esophageal reflux disease without esophagitis; Z95.1 Presence of aortocoronary bypass graft; Z95.2 Presence of prosthetic heart valve; Z86.010 Personal history of colon polyps; Z79.899 Other long term (current) drug therapy; Z90.49 Acquired absence of other specified parts of digestive tract